=== PATIENT | male | born 1945 | race African-American/Black ===

== ENCOUNTER 2019-08-07 20:18 | Inpatient (IN) | payer MEDICARE ==
[~2019-08-07] VITALS: Ht 177.8 cm; Wt 109.8 kg
[2019-08-07 20:29] VITALS: BP 148/88
--- NOTE | 2019-08-07 20:29 | NUR ---
ED Nurse Note: Pt serena from [facility]. Pt aao x 1, VSS no ss of distress noted. Pt brought in initially for abnormal labs at facility. Pt on ventilator and has tracheostomy, Pt has hx of pulling out tracheostomy, lindsey, and g tube. Pt skin intact. Awaiting ERMD at bedside. Addendum: 08/08/19 at 0230 by JENIFFER ED Nurse Note: Pt serena from [facility]. Pt aao x 1, VSS no ss of distress noted. Pt brought in initially for abnormal labs at facility. Pt on ventilator and has tracheostomy, Pt has hx of pulling out tracheostomy, lindsey, and g tube. Pt has pressure ulcer on sacrum; pictures uploaded. Awaiting ERMD at bedside.
--- NOTE | 2019-08-07 20:32 | NUR ---
ED Nurse Note: EKG performed by BUSINESS IMPROVEMENT MANAGER
--- NOTE | 2019-08-07 20:40 | NUR ---
ED Nurse Note: Blood and urine drawn, sent to lab.
--- NOTE | 2019-08-07 20:55 | NUR ---
ED Nurse Note: xray at bedside
[2019-08-07 21:13] LABS: HEMOGLOBIN 7.6 G/DL (14.2-18.0); MEAN CORPUSCULAR VOLUME 111 FL (80-99); PLATELET COUNT 298 K/UL (150-450); RED BLOOD COUNT 2.26 M/UL (4.70-6.10); RED CELL DISTRIBUTION WIDTH 12.9 % (11.6-14.8); WHITE BLOOD COUNT 11.2 K/UL (4.8-10.8)
--- NOTE | 2019-08-07 21:25 | Emergency Room Report ---
History of Present Illness General Chief Complaint: Abnormal Labs Source: Medical Record, EMS Present Illness HPI This a 74-year-old male from [facility]. He has a history of tracheostomy on the vent. He presents with chief complaint of generalized weakness and low hemoglobin. According to nursing note, patient has hemoglobin of 7. He is decreased appetite and mentation. This been ongoing for 2 to 3 days. No reported fever chills but no nausea no vomiting. No chest pain. History is limited because of patient condition. History is through [facility] note. Allergies: Coded Allergies: No Known Allergies (Unverified , 08/07/19) COVID-19 Screening Contact w/high risk pt: Yes Recent Travel to affected area: No Experienced COVID-19 symptoms?: No COVID-19 Testing performed RESIDENT SERVICES COORDINATOR: Yes COVID-19 Screening: Negative COVID-19 COVID-19 Testing Source: 07/21/19 Patient History Past Medical History: see triage record, old chart reviewed Past Surgical History: other Pertinent Family History: none Social History: Denies: smoking Immunizations: other Reviewed Nursing Documentation: PMH: Agreed; PSxH: Agreed Nursing Documentation-PMH Hx COPD: Yes - respiratory failure Hx Gastrointestinal Problems: Yes - enterocolitits Hx Dialysis: No - ckd Hx Neurological Problems: Yes - dysphagia; speech deficit Hx Cerebrovascular Accident: Yes - intracerebral hemorrhage Review of Systems Constitutional: Reports: malaise, weakness Eye: Denies: eye pain, blurred vision ENT: Denies: ear pain, nose congestion, throat swelling Respiratory: Denies: cough, shortness of breath Cardiovascular: Denies: chest pain, palpitations Gastrointestinal: Denies: abdominal pain, diarrhea, nausea, vomiting Musculoskeletal: Denies: back pain, joint pain Skin: Denies: rash Neurological: Denies: headache, numbness Endocrine: Denies: increased thirst, increased urine Hematologic/Lymphatic: Denies: easy bruising All Other Systems: limited - Secondary to his condition Physical Exam Vital Signs Date Time Temp Pulse Resp B/P (MAP) Pulse Ox O2 Delivery O2 Flow Rate FiO2 08/07/19 20:19 99.5 100 24 148/88 (108) 100 Mechanical Ventilator Vitals with low-grade fever Sp02 EP Interpretation: reviewed, normal General Appearance: no apparent distress, alert, Chronically Ill Head: normocephalic, atraumatic Eyes: bilateral eye PERRL, bilateral eye EOMI ENT: dry mucus membranes Neck: full range of motion, supple, no meningismus, tracheotomy Respiratory: chest non-tender, lungs clear, normal breath sounds Cardiovascular #1: regular rate, rhythm, no murmur Gastrointestinal: normal bowel sounds, non tender, no mass, no organomegaly, no bruit, non-distended Genitourinary: other - Thakkar Musculoskeletal: back normal, non-tender Neurologic: alert Psychiatric: mood/affect normal Medical Decision Making Diagnostic Impression: Primary Impression: Anemia Qualified Codes: D64.9 - Anemia, unspecified Additional Impression: Person under investigation for COVID-19 ER Course Patient presents with anemia. No active bleeding. He does have a low-grade fever with no particular source. He is high risk because he is from a [facility]. COVID testing sent. Will admit for further work-up. I contacted Dr. Hurt for admission. EKG Diagnostic Results Rate: normal Rhythm: NSR ST Segments: other - NSST changes Rhythm Strip Diag. Results EP Interpretation: yes Rate: 100 Rhythm: NSR, no PVC's, no ectopy Chest X-Ray Diagnostic Results Chest X-Ray Diagnostic Results : Chest X-Ray Ordered: Yes # of Views/Limited/Complete: 1 View Indication: Shortness of Breath EP Interpretation: Yes Interpretation: no effusion, no pneumothorax, other - trach, atelectasis Impression: Other - atelectasis Electronically Signed by: Shashank Leal MD Last Vital Signs Date Time Temp Pulse Resp B/P (MAP) Pulse Ox O2 Delivery O2 Flow Rate FiO2 08/07/19 20:29 99.5 100 22 148/88 100 Room Air Status: improved Disposition: SHORT-TERM HOSP Condition: Stable Referrals: Isaiah Hurt MD (PCP) Shashank Leal MD Aug 07, 2019 21:25
[2019-08-07 21:28] LABS: ANION GAP 5 mmol/L (5-15); BLOOD UREA NITROGEN 24 mg/dL (7-18); CALCIUM 8.9 MG/DL (8.5-10.1); CARBON DIOXIDE 35 MMOL/L (21-32); CHLORIDE 94 MMOL/L (98-107); POTASSIUM 4.1 MMOL/L (3.5-5.1); SODIUM 134 MMOL/L (136-145)
[2019-08-07] MEDS ORDERED: Acetaminophen 650 MG SUPP RECTAL ONE (21:30)
--- NOTE | 2019-08-07 21:30 | NUR ---
ED Nurse Note: All swabs sent to lab
[2019-08-07 21:32] LABS: ALANINE AMINOTRANSFERASE 29 U/L (12-78); ALBUMIN/GLOBULIN RATIO 0.4 (1.0-2.7); ALKALINE PHOSPHATASE 121 U/L (46-116); ASPARTATE AMINO TRANSFERASE 24 U/L (15-37); BILIRUBIN,TOTAL 0.4 MG/DL (0.2-1.0); CREATINE KINASE 218 U/L (26-308)
[2019-08-07 21:57] LABS: APPEARANCE,URINE CLEAR; BILIRUBIN, URINE NEGATIVE (NEGATIVE); COLOR,URINE PALE YELLOW; GLUCOSE, URINE (UA) NEGATIVE (NEGATIVE); KETONES,URINE NEGATIVE (NEGATIVE); LEUKOCYTE ESTERASE ,URINE 1+ (NEGATIVE); NITRITE,URINE NEGATIVE (NEGATIVE); PH,URINE 7 (4.5-8.0); PROTEIN,URINE 2+ (NEGATIVE); UROBILINOGEN,URINE NORMAL MG/DL (0.0-1.0)
[2019-08-07 22:51] VITALS: BP 145/81
--- NOTE | 2019-08-07 23:45 | NUR ---
ED Nurse Note: Pt resting in bed, VSS no ss of distress noted. Will continue to monitor.
[2019-08-08] VITALS (8 sets, daily range): BP systolic 115–154; BP diastolic 65–86
--- NOTE | 2019-08-08 01:25 | NUR ---
ED Nurse Note: Pt resting in bed, vss no ss of distress noted.
--- NOTE | 2019-08-08 03:30 | NUR ---
ED Nurse Note: Pt sleeping in bed, VSS no ss of distress noted. Will continue to monitor.
--- NOTE | 2019-08-08 04:00 | NUR ---
ED Nurse Note: Paged Dr. Hurt for bridging orders
--- NOTE | 2019-08-08 05:14 | NUR ---
ED Nurse Note: Pt resting in bed, vss no ss of distress noted. Will continue to monitor.
--- NOTE | 2019-08-08 07:17 | NUR ---
ED Nurse Note: received report from KEHINDE Morales.
--- NOTE | 2019-08-08 07:38 | NUR ---
ED Nurse Note: report given to KEHINDE Rivas. they will place a bed in the room and pt will be transferred.
--- NOTE | 2019-08-08 08:27 | NUR ---
ED Nurse Note: pt transferred to SDU with 2 RN and 1 RT in stable condition. Covid protocol followed to transfer.
--- NOTE | 2019-08-08 08:50 | NUR ---
NURSE NOTES: Received report from KEHINDE Dickinson from ED via [employer]. Iniated desk monitor. Physical assessment done. Stage 2 Sacral noted. Pictures will be taken and upload for wound consult. Patient came in with vent. Thakkar intact. IV on right a/c noted. No belongings. Vitals taken and recorded. Under care of Dr. Hurt. SR on monitor with HR in 80's. Bed in lowest and locked position. Bed alarm on. Will continue to monitor.
--- NOTE | 2019-08-08 09:07 | NUR ---
*-* NO INSURANCE INFORMATION IN THE BAR UNABLE TO SEND CLINICALS OR REVIEWS TO INS CO. *-*
[2019-08-08] MEDS ORDERED: AMLODIPINE BESY10 MG ORAL (10:27)
[2019-08-08] MEDS ORDERED: CATAPRES0.1 MG ORAL (10:27)
[2019-08-08] MEDS ORDERED: SYMMETREL100 MG GT (10:27)
[2019-08-08] MEDS ORDERED: CARVEDILOL6.25 MG ORAL (10:27)
[2019-08-08] MEDS ORDERED: FOLIC ACID1 MG ORAL (10:28)
[2019-08-08] MEDS ORDERED: EPOGEN10000 UNIT SUBQ (10:28)
[2019-08-08] MEDS ORDERED: DOXAZOSIN MESYLA2 MG ORAL (10:28)
[2019-08-08] MEDS ORDERED: POTASSIUM CHLO20 ME2 ORAL (10:28)
[2019-08-08] MEDS ORDERED: FERROUS SU325 MG/5 M GT (10:28)
[2019-08-08] MEDS ORDERED: HYDRALAZINE HCL50 MG ORAL (10:28)
[2019-08-08] MEDS ORDERED: FINASTERIDE1 MG PO (10:28)
[2019-08-08] MEDS ORDERED: LISINOPRIL20 MG ORAL (10:28)
[2019-08-08] MEDS ORDERED: HEPARIN SO5000 UNIT2 SUBQ (10:28)
--- NOTE | 2019-08-08 11:15 | NUR ---
*-* INSURANCE *-* ALL AVAILABLE CLINICALS HAVE BEEN [facility] [id number] ROSA MARIA:RYANNE P: [phone] F: [phone]
--- NOTE | 2019-08-08 12:19 | Diagnostic Imaging Report ---
Indication: Chest pain Technique: One view of the chest Comparison: none Findings: There is a tracheostomy. Calcified granuloma is seen in the right midlung. Granulomatous calcified nodes are seen in the left aortopulmonary window. No definite infiltrates, effusions, congestion. The heart size is upper limits normal. Impression: No definite acute abnormality Evidence of old granulomatous disease
[2019-08-08] MEDS: Ferrous Sulfate 300 MG/5 ML UDC GT SCH ×2 (13:00→17:07)
[2019-08-08] MEDS: HydrALAZINE 50mg tab GT SCH ×2 (14:00→22:00)
--- NOTE | 2019-08-08 15:00 | NUR ---
NURSE NOTES: Patient experienced distress: O2 saturation of 45% and Tachycardia at 150 BPM. RT at bedside. Elevated HOB and restraints removed temporarily. MD made aware and ordered Ativan 1 mg Q3 PRN. Patient O2 saturation increased from 45% to 95% after respiratory therapy initiated. Will continue to monitor patient.
--- NOTE | 2019-08-08 16:18 | NUR ---
NURSE NOTES:WOUND CARE NOTES:Pt presented on admission with multiple Pressure Injuries. Pt has a Tracheostomy and no areas of skin concerns noted under tracheal collar. Unstageable Sacral Pressure Injury(L)9.5cm x (W)10cm. Base of wound is 75% mixed slough and eschar,25% carolynn, Edges adherent with surrounding purple and maroon indurated borders. No odor or exudate noted. DTPI L Heel (L)3.7cm x (W)4.5cm. Base of wound is maroon and indurated with surrounding non-Blanching erythema. Callused skin periwound. Reabsorbing DTPI [place] L Foot (L)3.3cm x (W)2.5cm. Base of Pressure Injury is maroon but dry. No erythema or fluctuance periwound. DTPI Lateral L 1st metatarsal(L)1.5cm x (W)2cm. Base of wound is maroon and indurated.Callused skin periwound. DTPI Lateral R Heel (L)4.4cm x (W)6cm. Base of wound is indurated ,purple with surrounding maroon and fluctuant borders.Callusing periwound. DTPI R Hallux (L)1.8cm x (W)1.9cm. Base of wound is indurated and purple. Callusing periwound. DTPI Lateral R 1st metatarsal(L)2cm x (W)2.7cm. Base of wound is indurated and maroon. Callusing periwound. Tx.Plan: Cleanse Sacral wound with Saline. Apply TheraHoney. Apply Moisture Barrier Paste periwound. Cover with Optifoam drsg. Change every 3 days and prn. Apply Cavilon Skin Barrier to wounds L L Heel , L st metatarsal,Dorsal L Foot. Cover each Site with Optifoam drsg. Change every 7 days and prn. Apply Cavilon Skin Barrier to R Heel, R Hallux, R 1st metatarsal. Cover each site with Optifoam drsg. Change every 7 days and prn. APM/KHOA Mattress. Reposition at least every 2hours or as tolerated. Off-Load Heels with Pillows.
--- NOTE | 2019-08-08 16:44 | NUR ---
INTERQUAL CRITERIA MET
--- NOTE | 2019-08-08 16:58 | Consultation ---
History of Present Illness General Date patient seen: Aug 08, 2019 Reason for Hospitalization: Abnormal Labs Present Illness HPI This a 74-year-old male with multiple medical comorbidities who is a long-term care facility patient. He has a history of tracheostomy and is on vent support. Presents to [facility] for evaluation of generalized weakness and low hemoglobin. According to nursing note, patient has hemoglobin of 7 identified in recent labs. He is symptomatic with upon admission identified to have malnutrition, abnormal labs, decubitus ulcers. Surgery called to evaluate and assist with care. Patient seen, patient evaluated, chart reviewed decreased appetite and mentation. This been ongoing for 2 to 3 days. No reported fever chills but no nausea no vomiting. No chest pain. History is limited because of patient condition. Allergies: Coded Allergies: No Known Allergies (Unverified , 08/07/19) COVID-19 Screening Contact w/high risk pt: Yes Recent Travel to affected area: No Experienced COVID-19 symptoms?: No COVID-19 symptoms experienced: Shortness of Breath Medication History Scheduled Amlodipine Besylate* (Amlodipine Besylate*), 10 MG ORAL DAILY, (Reported) Carvedilol* (Carvedilol*), 6.25 MG ORAL EVERY 12 HOURS, (Reported) Clonidine Hcl* (Catapres*), 0.1 MG ORAL EVERY 8 HOURS, (Reported) Doxazosin Mesylate (Doxazosin Mesylate), 2 MG ORAL DAILY, (Reported) Epoetin Andrés (Epogen), 10,000 UNIT SUBQ 3XW, (Reported) Folic Acid* (Folic Acid*), 1 MG ORAL DAILY, (Reported) Heparin Sod (Porcine) (Heparin Sodium*), 5,000 UNITS SUBQ EVERY 8 HOURS, ( Reported) Hydralazine Hcl* (Hydralazine Hcl*), 50 MG ORAL EVERY 8 HOURS, (Reported) Lisinopril (Lisinopril*), 20 MG ORAL DAILY, (Reported) Potassium Chloride (Potassium Chloride), 20 MEQ ORAL DAILY, (Reported) Miscellaneous Medications Amantadine HCl (Amantadine), 100 MG GT, (Reported) Ferrous Sulfate (Ferrous Sulfate), 325 MG GT, (Reported) Finasteride (Finasteride), 1 MG PO, (Reported) Patient History Limited by: medical condition History Provided By: Medical Record, PMD Healthcare decision maker Resuscitation status Advanced Directive on File Past Medical/Surgical History Past Medical/Surgical History: (1) Anemia (2) Person under investigation for COVID-19 (3) Unstageable decubitus ulcer (4) Leaking PEG tube Review of Systems Review of Symptoms General ROS: no weight loss or fever Psychological ROS: no depression or mood changes, no memory loss Ophthalmic ROS: no visual changes or eye irritation ENT ROS: no nasal congestion, hearing loss, dizziness Allergy and Immunology ROS: no allergic symptoms or urticaria Hematological and Lymphatic ROS: no swollen glands, unusual bleeding or bruising Endocrine ROS: no polyuria, polydipsia, weight changes, temperature intolerance Respiratory ROS: no cough, shortness of breath, or wheezing Cardiovascular ROS: no chest pain or dyspnea on exertion Gastrointestinal ROS: denies abdominal pain, bright red blood in stool. Musculoskeletal ROS: no myalgias or arthralgias Neurological ROS: no TIA or stroke symptoms Dermatological ROS: no new or changing skin lesions, rashes or pruritis Physical Exam Physical Exam General appearance: alert, cooperative, no distress, appears stated age Head: Normocephalic, without obvious abnormality, atraumatic Eyes: conjunctivae/corneas clear. PERRL, EOM's intact. Fundi benign Throat: Lips, mucosa, and tongue normal. Teeth and gums normal Neck: supple, symmetrical, trachea midline, no adenopathy, thyroid: not enlarged, symmetric, no tenderness/mass/nodules, no carotid bruit and no JVD + trach Lungs: clear to auscultation bilaterally Heart: regular rate and rhythm, S1, S2 normal, no murmur, click, rub or gallop Abdomen: soft, non-tender. Bowel sounds normal. No masses, no organomegaly++ peg Extremities: extremities normal, atraumatic, no cyanosis or edema Pulses: 2+ and symmetric Skin: Skin see below Neurologic: Grossly normal Last 24 Hour Vital Signs Date Time Temp Pulse Resp B/P (MAP) Pulse Ox O2 Delivery O2 Flow Rate FiO2 08/08/19 16:00 40 08/08/19 15:42 147 08/08/19 14:40 106 39 40 08/08/19 12:00 40 08/08/19 12:00 Mechanical Ventilator 08/08/19 12:00 98.2 90 20 146/67 (93) 100 08/08/19 11:53 86 22 98 Mechanical Ventilator 40 6/9/20 11:53 90 08/08/19 11:49 92 23 40 08/08/19 10:57 Mechanical Ventilator 08/08/19 08:30 97.5 14 140/86 (104) 100 08/08/19 08:26 98.2 87 18 144/81 100 Mechanical Ventilator 40 08/08/19 07:27 80 24 40 08/08/19 06:45 99.0 83 24 154/83 98 Mechanical Ventilator 40 08/08/19 04:53 99.0 90 27 138/85 100 Mechanical Ventilator 40 08/08/19 02:15 99.0 86 25 139/84 100 Mechanical Ventilator 40 08/08/19 00:58 81 31 40 08/08/19 00:45 99.0 92 22 141/86 100 Mechanical Ventilator 40 08/07/19 22:51 99.0 95 21 145/81 100 Room Air 08/07/19 22:19 99.0 08/07/19 20:30 86 26 40 08/07/19 20:29 99.5 100 22 148/88 100 Room Air 08/07/19 20:19 99.5 100 24 148/88 (108) 100 Mechanical Ventilator Intake and Output 08/07/19 08/08/19 19:00 07:00 Intake Total 0 ml Balance 0 ml Intake Oral 0 ml Laboratory Tests Test 08/07/19 20:40 White Blood Count 11.2 K/UL (4.8-10.8) H Red Blood Count 2.26 M/UL (4.70-6.10) L Hemoglobin 7.6 G/DL (14.2-18.0) L Hematocrit 25.0 % (42.0-52.0) L Mean Corpuscular Volume 111 FL (80-99) H Mean Corpuscular Hemoglobin 33.7 PG (27.0-31.0) H Mean Corpuscular Hemoglobin Concent 30.5 G/DL (32.0-36.0) L Red Cell Distribution Width 12.9 % (11.6-14.8) Platelet Count 298 K/UL (150-450) Mean Platelet Volume 7.6 FL (6.5-10.1) Neutrophils (%) (Auto) % (45.0-75.0) Lymphocytes (%) (Auto) % (20.0-45.0) Monocytes (%) (Auto) % (1.0-10.0) Eosinophils (%) (Auto) % (0.0-3.0) Basophils (%) (Auto) % (0.0-2.0) Differential Total Cells Counted 100 Neutrophils % (Manual) 75 % (45-75) Lymphocytes % (Manual) 10 % (20-45) L Monocytes % (Manual) 15 % (1-10) H Eosinophils % (Manual) 0 % (0-3) Basophils % (Manual) 0 % (0-2) Band Neutrophils 0 % (0-8) Platelet Estimate Adequate Platelet Morphology Normal Polychromasia 1+ Hypochromasia 1+ Anisocytosis 1+ Microcytosis Macrocytosis 2+ Urine Color Pale yellow Urine Appearance Clear Urine pH 7 (4.5-8.0) Urine Specific [place] 1.010 (1.005-1.035) Urine Protein 2+ (NEGATIVE) H Urine Glucose (UA) Negative (NEGATIVE) Urine Ketones Negative (NEGATIVE) Urine Blood 4+ (NEGATIVE) H Urine Nitrite Negative (NEGATIVE) Urine Bilirubin Negative (NEGATIVE) Urine Urobilinogen Normal MG/DL (0.0-1.0) Urine Leukocyte Esterase 1+ (NEGATIVE) H Urine RBC 20-30 /HPF (0 - 0) H Urine WBC 2-4 /HPF (0 - 0) Urine Squamous Epithelial Cells None /LPF (NONE/OCC) Urine Bacteria Occasional /HPF (NONE) Sodium Level 134 MMOL/L (136-145) L Potassium Level 4.1 MMOL/L (3.5-5.1) Chloride Level 94 MMOL/L (98-107) L Carbon Dioxide Level 35 MMOL/L (21-32) H Anion Gap 5 mmol/L (5-15) Blood Urea Nitrogen 24 mg/dL (7-18) H Creatinine 1.0 MG/DL (0.55-1.30) Estimat Glomerular Filtration Rate > 60 mL/min (>60) Glucose Level 115 MG/DL (74-106) H Lactic Acid Level 1.00 mmol/L (0.4-2.0) Calcium Level 8.9 MG/DL (8.5-10.1) Total Bilirubin 0.4 MG/DL (0.2-1.0) Aspartate Amino Transf (AST/SGOT) 24 U/L (15-37) Alanine Aminotransferase (ALT/SGPT) 29 U/L (12-78) Alkaline Phosphatase 121 U/L (46-116) H Total Creatine Kinase 218 U/L (26-308) Troponin I 0.000 ng/mL (0.000-0.056) Total Protein 7.6 G/DL (6.4-8.2) Albumin 2.0 G/DL (3.4-5.0) L Globulin 5.6 g/dL Albumin/Globulin Ratio 0.4 (1.0-2.7) L Height (Feet): 5 Height (Inches): 6.00 Weight (Pounds): 145 Medications Current Medications Medications (Trade) Dose Ordered Sig/Nury Route PRN Reason Start Time Stop Time Status Last Admin Dose Admin Acetaminophen (Tylenol) 650 mg Q4H PRN GT Mild Pain (Pain Scale 1-3) 08/08/19 10:45 09/07/19 10:44 Acetaminophen (Tylenol) 650 mg Q4H PRN GT Temp >100.5 08/08/19 10:45 09/07/19 10:44 Amantadine HCl (Symmetrel) 100 mg DAILY GT 08/09/19 09:00 09/08/19 08:59 Amlodipine Besylate (Norvasc) 10 mg DAILY GT 08/08/19 13:00 09/07/19 12:59 Carvedilol (Coreg) 6.25 mg EVERY 12 HOURS GT 08/08/19 21:00 09/07/19 20:59 Clonidine HCl (Catapres Tab) 0.1 mg EVERY 8 HOURS GT 08/08/19 14:00 11/06/19 13:59 Doxazosin Mesylate (Cardura) 2 mg QHS GT 08/08/19 21:00 09/07/19 20:59 Ferrous Sulfate (Feosol) 330 mg THREE TIMES A DAY GT 08/08/19 13:00 11/06/19 12:59 Finasteride (Proscar) 1 mg QHS ORAL 08/08/19 21:00 11/06/19 20:59 UNV Folic Acid (Folate) 1 mg DAILY GT 08/08/19 14:30 09/07/19 14:29 Heparin Sodium (Porcine) (Heparin 5000 units/ml) 5,000 units EVERY 12 HOURS SUBQ 08/08/19 21:00 09/22/19 20:59 Hydralazine HCl (Apresoline) 50 mg Q8HR GT 08/08/19 14:00 11/06/19 13:59 Lisinopril (PriniviL) 20 mg Q12HR GT 08/08/19 21:00 09/07/19 20:59 Lorazepam (Ativan 2mg/ml 1ml) 1 mg Q3H PRN IV For Anxiety 08/08/19 16:30 08/15/19 16:29 Assessment/Plan Problem List: (1) Anemia ICD Codes: D64.9 - Anemia, unspecified SNOMED: 398312017 Qualifiers: Qualified Codes: D64.9 - Anemia, unspecified (2) Unstageable decubitus ulcer Assessment & Plan: Pt presented on admission with multiple Pressure Injuries. Pt has a Tracheostomy and no areas of skin concerns noted under tracheal collar. Unstageable Sacral Pressure Injury(L)9.5cm x (W)10cm. Base of wound is 75% mixed slough and eschar,25% [place], Edges adherent with surrounding purple and maroon indurated borders. No odor or exudate noted. DTPI L Heel (L)3.7cm x (W)4.5cm. Base of wound is maroon and indurated with surrounding non-Blanching erythema. Callused skin periwound. Reabsorbing DTPI [place] L Foot (L)3.3cm x (W)2.5cm. Base of Pressure Injury is maroon but dry. No erythema or fluctuance periwound. DTPI Lateral L 1st metatarsal(L)1.5cm x (W)2cm. Base of wound is maroon and indurated.Callused skin periwound. DTPI Lateral R Heel (L)4.4cm x (W)6cm. Base of wound is indurated ,purple with surrounding maroon and fluctuant borders.Callusing periwound. DTPI R Hallux (L)1.8cm x (W)1.9cm. Base of wound is indurated and purple. Callusing periwound. DTPI Lateral R 1st metatarsal(L)2cm x (W)2.7cm. Base of wound is indurated and maroon. Callusing periwound. Tx.Plan: Cleanse Sacral wound with Saline. Apply TheraHoney. Apply Moisture Barrier Paste periwound. Cover with Optifoam drsg. Change every 3 days and prn. Apply Cavilon Skin Barrier to wounds L L Heel , L st metatarsal,Dorsal L Foot. Cover each Site with Optifoam drsg. Change every 7 days and prn. Apply Cavilon Skin Barrier to R Heel, R Hallux, R 1st metatarsal. Cover each site with Optifoam drsg. Change every 7 days and prn. APM/KHOA Mattress. Reposition at least every 2hours or as tolerated. Off-Load Heels with Pillows. ICD Codes: L89.95 - Pressure ulcer of unspecified site, unstageable SNOMED: 848757729 (3) Leaking PEG tube ICD Codes: K94.23 - Gastrostomy malfunction SNOMED: 662973535 (4) Person under investigation for COVID-19 Assessment & Plan: There is a tracheostomy. Calcified granuloma is seen in the right midlung. Granulomatous calcified nodes are seen in the left aortopulmonary window. No definite infiltrates, effusions, congestion. The heart size is upper limits normal. Impression: No definite acute abnormality Evidence of old granulomatous disease ICD Codes: Z20.828 - Contact with and (suspected) exposure to other viral communicable diseases SNOMED: 394909966 Homero Cummings Aug 08, 2019 16:58
[2019-08-08] MEDS: LORazepam Inj 2mg/ml 1ml IV PRN (17:02)
--- NOTE | 2019-08-08 17:23 | NUR ---
CASE MANAGEMENT: REVIEW 74 YEAR OLD MALE BIBA FROM [facility] CC: ABNORMAL LABS SI: ANEMIA T 99.5 HR 100 RR 24 BP 148/88 SAT 100% MECH VENT FIO2 40 WBC 11.2 H/H 7.6/25.0 NA 134 IS: NS IVF BOLUS X1 TYLENOL 650MG RECTAL X1 TRANSFUSE PRBC 1 UNIT PATIENT ADMITTED TO STEP DOWN UNIT 08/07/2019 DCP: PATIENT IS FROM [facility]
[2019-08-08] MEDS ORDERED: Amiodarone 900 MG in D5W 500ml 482 ML IV ONE (17:45)
--- NOTE | 2019-08-08 19:10 | NUR ---
NURSE NOTES: Received report from KEHINDE Pineda. Patient asleep in bed, afebrile and has no respiratory distress noted[facility], TV 450, FiO2 40%, peep 5 working well. With GT in place surrounding skin is clean and intact. With R AC 20g SL intact and asymptomatic. With FC to urine bag draining well. PT on Sinus tachy 120-130 notable via 5 lead radiation monitor. Pt is asymptomatic and continue plan of care. HOB elevated. Bed wheels are locked and side rail are up. Call light within reach.
--- NOTE | 2019-08-08 19:30 | NUR ---
HAND-OFF: Report given to vladimir schneider.
--- NOTE | 2019-08-08 20:06 | NUR ---
NURSE NOTES: Placed a call and left a VM to DR Hguo ( director call center sales for tonight for Dr Fisher ) regarding medications of patient because pt is NPO and GT usage is held ( for feeding and meds) for now due to blood aspirated as endorsed by morning shift nurses. Awaiting response.
[2019-08-08] MEDS ORDERED: Carvedilol 6.25mg Tab GT SCH (21:00)
[2019-08-08] MEDS: Heparin 5000 units/ml inj SUBQ SCH (21:00)
--- NOTE | 2019-08-08 21:00 | NUR ---
NURSE NOTES: Heparin not given. Black tarry stool hx and awaiting for OB stool result
--- NOTE | 2019-08-08 21:30 | NUR ---
NURSE NOTES: Relayed to DR Hurt a message regarding medication and tube feeding administration. responded ok to give meds via GT and Start tube feeding while waiting for OB stool result. No GT residual noted.
[2019-08-08] MEDS: Lisinopril 20mg tab GT SCH (21:55)
[2019-08-08] MEDS: Doxazosin 4mg tab GT SCH (21:55)
--- NOTE | 2019-08-08 22:00 | NUR ---
NURSE NOTES: Hydralazine and Clonidine via GT not given due to Pt has facial grimace and noticeable fist clenching ( signs of pain) while giving flushing and meds. BP 118/58. Pt asleep and no significant change noted. MD is aware of the patient's responseof GT administration .
[2019-08-08] MEDS: D5NS 1,000 ML IV SCH (22:40)
[2019-08-09] VITALS: BP 110/58
--- NOTE | 2019-08-09 | NUR ---
NURSE NOTES: 1200: Pre transfusion VS are stable. Pt remains asleep and has no respiratory distress noted. PRBC Blood transfusion started 1215: VS taken and stable. No adverse reaction noted to patient. Continue to monitor the patient
--- NOTE | 2019-08-09 02:30 | NUR ---
NURSE NOTES: 1 unit of PRBC transfusion done. VS are stable. No Adverse reactions noted to patient. Continue to monitor the patient
[2019-08-09 04:00] VITALS: BP 135/66
[2019-08-09] MEDS: HydrALAZINE 50mg tab GT SCH ×3 (05:51→22:00)
--- NOTE | 2019-08-09 06:07 | NUR ---
NURSE NOTES: Hydralazine and Clonidine via GT not given due to Pt has facial grimace and noticeable fist clenching ( signs of pain) while giving flushing and meds. BP 126/58. Pt asleep and no significant change noted. MD is aware of the patient's response of GT administration .
--- NOTE | 2019-08-09 06:10 | NUR ---
NURSE NOTES: Patient was noted with min 99-100 max temperature during blood transfusion. Warm to touch, No sweating, shaking/chills noted to patient. Other VS are stable. No other discomforts noted. Nursing interventions done by removing blanket and sheet, Cooling measure like ice packs, loose clothing and TSB. patient tolerated well. Informed doctor Ishaaya. PILLAI to continue. Rechecked Temperature after transfusion and resulted to 98.8. Continue cooling measures and to monitor patient.
--- NOTE | 2019-08-09 06:45 | Consultation ---
DATE OF CONSULTATION: 08/08/2019 CARDIOLOGY CONSULTATION CONSULTING PHYSICIAN: Augustine Fisher MD. REQUESTING PHYSICIAN: Isaiah Hurt MD. REASON FOR CONSULTATION: Tachycardia. HISTORY OF PRESENT ILLNESS: This is a 74-year-old male was admitted to the hospital today with multiple medical problems. He is a [facility] resident with tracheostomy and is ventilator dependent. He had a low hemoglobin level, has been generally weak with significant malnutrition, no new decubitus. He was noted to have an increase in his heart rate above 150 at some point and I have been asked to assist with care. I reviewed the strips with nursing staff which all revealed sinus tachycardia and no evidence of atrial fibrillation, rare atrial ectopy is seen, nonsustained. MEDICATIONS: Medications prior to admission reviewed and reconciled. ALLERGIES: None known. SOCIAL HISTORY: Not obtainable. FAMILY HISTORY: Not obtainable. PHYSICAL EXAMINATION: VITAL SIGNS: Blood pressure 146/67, pulse 90, respiratory rate 20, afebrile. Heart rate up to 147 earlier. HEENT: Thin trach secretions. LUNGS: Bilateral breath sounds with few rhonchi. CARDIAC: Regular rhythm. Rapid rate. Normal S1 and S2. No murmur. ABDOMEN: Soft. G-tube intact. EXTREMITIES: No edema. LABORATORY AND DIAGNOSTIC DATA: White count 11.2, hemoglobin 7.6. Urinalysis with 20 to 30 red cells, 2 to 4 white cells. Sodium 134, potassium 4.1, bicarb 35, chloride 94, BUN 24, creatinine 1. Lactic acid 1. Albumin 2.0. IMPRESSION: 1. Physiologically associated sinus tachycardia in the setting of anemia and acute infection/sepsis . 2. Severe protein-calorie malnutrition. 3. Respiratory failure. 4. Mild hypovolemia and dehydration with skin decubiti. RECOMMEND: 1. Cardiac monitoring. 2. Hydration. 3. Consider transfusion of packed cells. 4. Nutritional support. 5. Wound care. Augustine Fisher M.D. : Derrick JOB#: [id number] CC:
--- NOTE | 2019-08-09 07:20 | NUR ---
HAND-OFF: Report given to Miriam Dotson RN. PT stable and asleep in bed. Endorsed pt had low grade fever but manageable with cooling measures.
--- NOTE | 2019-08-09 07:30 | NUR ---
NURSE NOTES: received patient report from vladimir rn. patient is on bed asleep. SP blood transfusion 2 u. tolerated well. VS stable. not in acute distress. HR stable. on vent at prescribed rate. on restraints on the right hand. still trying to pull out lines and vent tubes. bed is low and locked for safety. will follow plan of care.
[2019-08-09 08:00] VITALS: BP 117/59
[2019-08-09] MEDS: Ferrous Sulfate 300 MG/5 ML UDC GT SCH ×3 (08:08→18:00)
[2019-08-09] MEDS: Lisinopril 20mg tab GT SCH ×2 (08:09→20:23)
[2019-08-09] MEDS: Ascorbic Acid 500mg tab GT SCH (08:09)
[2019-08-09] MEDS: Amantadine 100mg cap GT SCH (08:09)
[2019-08-09] MEDS: Heparin 5000 units/ml inj SUBQ SCH ×2 (09:00→20:37)
[2019-08-09] MEDS: D5NS 1,000 ML IV SCH ×2 (09:22→18:33)
[2019-08-09 09:37] LABS: BASOPHILS % (AUTO) 0.4 % (0.0-2.0); EOSINOPHILS % (AUTO) 0.2 % (0.0-3.0); HEMATOCRIT 25.8 % (42.0-52.0); LYMPHOCYTES % (AUTO) 5.8 % (20.0-45.0); MEAN CORPUSCULAR VOLUME 97 FL (80-99); MONOCYTES % (AUTO) 9.4 % (1.0-10.0); NEUTROPHILS % (AUTO) 84.2 % (45.0-75.0); PLATELET COUNT 266 K/UL (150-450); RED BLOOD COUNT 2.67 M/UL (4.70-6.10); RED CELL DISTRIBUTION WIDTH 12.8 % (11.6-14.8); WHITE BLOOD COUNT 13.1 K/UL (4.8-10.8)
--- NOTE | 2019-08-09 09:48 | Diagnostic Imaging Report ---
Indication: Abdominal pain Technique: Supine view of the abdomen Comparison: none Findings: A gastrostomy and a Thakkar catheter are noted. Single prominent but not frankly dilated small bowel loop is seen left upper quadrant bowel gas pattern is otherwise unremarkable. Included chest demonstrates evidence of a calcified granuloma in the right lung, and calcified granulomatous lymph nodes in the right pulmonary hilum and left aortopulmonary window. Unusual ossific density is seen in the proximal medial right thigh, incompletely included, possibly area of heterotopic ossification Impression: No acute process. Findings as noted
[2019-08-09 09:50] LABS: ALANINE AMINOTRANSFERASE 19 U/L (12-78); ALBUMIN 1.8 G/DL (3.4-5.0); ALBUMIN/GLOBULIN RATIO 0.3 (1.0-2.7); ALKALINE PHOSPHATASE 102 U/L (46-116); ANION GAP 9 mmol/L (5-15); ASPARTATE AMINO TRANSFERASE 24 U/L (15-37); BILIRUBIN,TOTAL 0.6 MG/DL (0.2-1.0); BLOOD UREA NITROGEN 23 mg/dL (7-18); CALCIUM 8.1 MG/DL (8.5-10.1); CARBON DIOXIDE 30 MMOL/L (21-32); CHLORIDE 98 MMOL/L (98-107); CREATININE 1.2 MG/DL (0.55-1.30); POTASSIUM 3.9 MMOL/L (3.5-5.1); SODIUM 137 MMOL/L (136-145)
[2019-08-09 09:53] LABS: INR 1.3 (0.9-1.1)
--- NOTE | 2019-08-09 10:14 | NUR ---
RADIOLOGY DEPT., ABDOMEN X-RAY DONE.-P.DYE
--- NOTE | 2019-08-09 11:50 | NUR ---
CASE MANAGEMENT: REVIEW SI: ANEMIA . TACHYCARDIA . T 100.0 HR 92 RR 25 BP 117/59 SAT 100% MECH VENT FIO2 40 WBC 13.1 H/H 9.0/25.8 BUN 23 IS: AMIODARONE IV X1 D5 NS IVF @ 100ML/HR HEPARIN SUBQ Q12HR LOPRESSOR GT Q12HR S/P TRANSFUSION PRBC 1 UNIT STEP DOWN UNIT STATUS DCP: PATIENT IS FROM [facility]
--- NOTE | 2019-08-09 11:53 | NUR ---
RD ASSESSMENT & RECOMMENDATIONS SEE CARE ACTIVITY FOR COMPLETE ASSESSMENT DAILY ESTIMATED NEEDS: Needs based on Critical care, wound 79gk 22-28 kcals/kg 9570-1486 total kcals 1.25-2 g protein/kg 99-158 g total protein 25-30 mL/kg 6767-7060 total fluid mLs NUTRITION DIAGNOSIS: Increased pro needs r/t wound healing as evidenced by pt w/ multiple wounds, refer to WC nurse eval, trach and peg dep. CURRENT TF: Osmolite 1.5 @60ml/hr ENTERAL NUTRITION RECOMMENDATIONS: Maintain Osmolite 1.5 @60ml/hr x24 hrs as tolerated to provide 1440ml, 2160 kcal, 90g pro, 1097ml free H2O - Maintain as tolerated - Add PROSOURCE qdaily (11g pro) to better meet est pro needs. - Flush per MD. HOB over 30 degrees ADDITIONAL RECOMMENDATIONS: 1) Per SNF: 5'11" and 174 lbs 2) Tf recs as above 3) Wound care: add JANE BID + Zn SO4 220 mg qd x10 days 4) Maintain calibrated bed scale wts
[2019-08-09 12:00] VITALS: BP 123/71
--- NOTE | 2019-08-09 12:46 | Pulmonology Progress Note ---
Subjective ROS Limited/Unobtainable: Yes Allergies: Coded Allergies: No Known Allergies (Unverified , 08/07/19) Objective Last 24 Hour Vital Signs Date Time Temp Pulse Resp B/P (MAP) Pulse Ox O2 Delivery O2 Flow Rate FiO2 08/09/19 08:00 40 08/09/19 08:00 Mechanical Ventilator 08/09/19 08:00 99.5 92 24 117/59 (78) 100 08/09/19 07:33 97 08/09/19 07:07 88 25 40 08/09/19 06:00 125/83 08/09/19 05:51 125/83 08/09/19 04:00 40 08/09/19 04:00 100.0 92 24 135/66 (89) 100 08/09/19 04:00 Mechanical Ventilator 08/09/19 03:30 87 26 40 08/09/19 00:00 98.6 90 24 110/58 (75) 100 08/09/19 00:00 Mechanical Ventilator 08/09/19 00:00 40 08/08/19 23:29 95 08/08/19 22:50 100 27 40 08/08/19 22:00 118/58 08/08/19 22:00 118/58 08/08/19 21:55 129/69 08/08/19 21:55 118 129/69 08/08/19 20:00 Mechanical Ventilator 08/08/19 20:00 40 08/08/19 20:00 99.6 118 24 129/69 (89) 100 08/08/19 19:31 122 08/08/19 19:30 119 30 40 08/08/19 16:00 97.5 129 24 115/65 (82) 100 08/08/19 16:00 Mechanical Ventilator 08/08/19 16:00 40 08/08/19 15:42 147 08/08/19 14:40 106 39 40 Intake and Output 08/08/19 08/09/19 19:00 07:00 Intake Total 833 ml Output Total 750 ml 300 ml Balance -750 ml 533 ml IV Total 833 ml Output Urine Total 750 ml 300 ml # Bowel Movements 4 2 Objective WDWN trach reduced breath sounds bilaterally without rhonchi or wheeze [id number] without MRG NABS nontender GT no CCE reduced LOC Microbiology Date/Time Source Procedure Growth Status 08/07/19 21:25 Nasopharynx Coronavirus COVID-19 PCR ([facility]ENNIFER) - Final Complete 08/07/19 20:40 Arm Right Blood Culture - Preliminary NO GROWTH AFTER 24 HOURS Resulted 08/07/19 20:40 Arm Right Blood Culture - Preliminary NO GROWTH AFTER 24 HOURS Resulted Laboratory Tests 08/08/19 14:00: Stool Occult Blood Positive 08/09/19 09:15: White Blood Count 13.1H, Red Blood Count 2.67L, Hemoglobin 9.0L, Hematocrit 25.8L, Mean Corpuscular Volume 97, Mean Corpuscular Hemoglobin 33.9H, Mean Corpuscular Hemoglobin Concent 35.1, Red Cell Distribution Width 12.8, Platelet Count 266, Mean Platelet Volume 6.1L, Neutrophils (%) (Auto) 84.2H, Lymphocytes (%) (Auto) 5.8L, Monocytes (%) (Auto) 9.4, Eosinophils (%) (Auto) 0.2, Basophils (%) (Auto) 0.4, Erythrocyte Sedimentation Rate 125H, Prothrombin Time 13.6H, Prothromb Time International Ratio 1.3H, Activated Partial Thromboplast Time 31, Sodium Level 137, Potassium Level 3.9, Chloride Level 98, Carbon Dioxide Level 30, Anion Gap 9, Blood Urea Nitrogen 23H, Creatinine 1.2, Estimat Glomerular Filtration Rate > 60, Glucose Level 135H, Calcium Level 8.1L, Total Bilirubin 0.6, Aspartate Amino Transf (AST/SGOT) 24, Alanine Aminotransferase ( ALT/SGPT) 19, Alkaline Phosphatase 102, C-Reactive Protein, Quantitative 23.5H, Total Protein 7.1, Albumin 1.8L, Globulin 5.3, Albumin/Globulin Ratio 0.3L, Lipase 52L Current Medications Medications (Trade) Dose Ordered Sig/Nury Route PRN Reason Start Time Stop Time Status Last Admin Dose Admin Acetaminophen (Tylenol) 325 mg Q6H PRN RECTAL Temp >100.5 08/08/19 21:45 09/07/19 21:44 Acetaminophen (Tylenol) 650 mg Q4H PRN GT Mild Pain (Pain Scale 1-3) 08/08/19 10:45 09/07/19 10:44 Acetaminophen (Tylenol) 650 mg Q4H PRN GT Temp >100.5 08/08/19 10:45 09/07/19 10:44 Amantadine HCl (Symmetrel) 100 mg DAILY GT 08/09/19 09:00 09/08/19 08:59 Amlodipine Besylate (Norvasc) 10 mg DAILY GT 08/08/19 13:00 09/07/19 12:59 Ascorbic Acid (Vitamin C) 250 mg DAILY GT 08/09/19 09:00 09/08/19 08:59 Clonidine HCl (Catapres Tab) 0.1 mg EVERY 8 HOURS GT 08/08/19 14:00 11/06/19 13:59 Dextrose/Sodium Chloride 1,000 ml @ 100 mls/hr Q10H IV 08/08/19 23:00 09/07/19 22:59 08/09/19 09:22 Doxazosin Mesylate (Cardura) 2 mg QHS GT 08/08/19 21:00 09/07/19 20:59 08/08/19 21:55 Ferrous Sulfate (Feosol) 330 mg THREE TIMES A DAY GT 08/08/19 13:00 11/06/19 12:59 Folic Acid (Folate) 1 mg DAILY GT 08/08/19 14:30 09/07/19 14:29 Heparin Sodium (Porcine) (Heparin 5000 units/ml) 5,000 units EVERY 12 HOURS SUBQ 08/08/19 21:00 09/22/19 20:59 Hydralazine HCl (Apresoline) 10 mg Q6H PRN IV SBP> 160 08/08/19 21:45 11/06/19 21:44 Hydralazine HCl (Apresoline) 50 mg Q8HR GT 08/08/19 14:00 11/06/19 13:59 Lisinopril (PriniviL) 20 mg Q12HR GT 08/08/19 21:00 09/07/19 20:59 08/08/19 21:55 Lorazepam (Ativan 2mg/ml 1ml) 1 mg Q3H PRN IV For Anxiety 08/08/19 16:30 08/15/19 16:29 08/08/19 17:02 Metoprolol Tartrate (Lopressor) 25 mg Q12HR GT 08/09/19 09:00 11/07/19 08:59 Multivitamins (Multivitamins) 1 tab DAILY GT 08/09/19 09:00 09/08/19 08:59 Assessment/Plan Assessment/Plan anemia possible GIB sinus tachycardia respiratory failure trach chronic encephalopathy GT PLAN gi and ID noted fevers noted cards appreciated follow up for changes vent support feeds per gi . impression, plan, and exam edited and reviewed in detail care discussed with Isaiah Villatoro MD Aug 09, 2019 12:46
--- NOTE | 2019-08-09 14:15 | Surgery Progress Note ---
Surgery Progress Note Subjective Additional Comments no acute events labs noted exam stable comfortable micro reviewed Objective Last 24 Hour Vital Signs Date Time Temp Pulse Resp B/P (MAP) Pulse Ox O2 Delivery O2 Flow Rate FiO2 08/09/19 12:00 40 08/09/19 12:00 99.1 92 24 123/71 (88) 100 08/09/19 12:00 Mechanical Ventilator 08/09/19 08:00 40 08/09/19 08:00 Mechanical Ventilator 08/09/19 08:00 99.5 92 24 117/59 (78) 100 08/09/19 07:33 97 08/09/19 07:07 88 25 40 08/09/19 06:00 125/83 08/09/19 05:51 125/83 08/09/19 04:00 40 08/09/19 04:00 100.0 92 24 135/66 (89) 100 08/09/19 04:00 Mechanical Ventilator 08/09/19 03:30 87 26 40 08/09/19 00:00 98.6 90 24 110/58 (75) 100 08/09/19 00:00 Mechanical Ventilator 08/09/19 00:00 40 08/08/19 23:29 95 08/08/19 22:50 100 27 40 08/08/19 22:00 118/58 08/08/19 22:00 118/58 08/08/19 21:55 129/69 08/08/19 21:55 118 129/69 08/08/19 20:00 Mechanical Ventilator 08/08/19 20:00 40 08/08/19 20:00 99.6 118 24 129/69 (89) 100 08/08/19 19:31 122 08/08/19 19:30 119 30 40 08/08/19 16:00 97.5 129 24 115/65 (82) 100 08/08/19 16:00 Mechanical Ventilator 08/08/19 16:00 40 08/08/19 15:42 147 08/08/19 14:40 106 39 40 I&O Intake and Output 08/08/19 08/09/19 19:00 07:00 Intake Total 833 ml Output Total 750 ml 300 ml Balance -750 ml 533 ml IV Total 833 ml Output Urine Total 750 ml 300 ml # Bowel Movements 4 2 Dressing: other Wound: other Drains: other Cardiovascular: RSR Respiratory: decreased breath sounds Abdomen: soft, non-tender, present bowel sounds Extremities: no cyanosis Laboratory Tests Test 08/09/19 09:15 White Blood Count 13.1 K/UL (4.8-10.8) H Red Blood Count 2.67 M/UL (4.70-6.10) L Hemoglobin 9.0 G/DL (14.2-18.0) L Hematocrit 25.8 % (42.0-52.0) L Mean Corpuscular Volume 97 FL (80-99) Mean Corpuscular Hemoglobin 33.9 PG (27.0-31.0) H Mean Corpuscular Hemoglobin Concent 35.1 G/DL (32.0-36.0) Red Cell Distribution Width 12.8 % (11.6-14.8) Platelet Count 266 K/UL (150-450) Mean Platelet Volume 6.1 FL (6.5-10.1) L Neutrophils (%) (Auto) 84.2 % (45.0-75.0) H Lymphocytes (%) (Auto) 5.8 % (20.0-45.0) L Monocytes (%) (Auto) 9.4 % (1.0-10.0) Eosinophils (%) (Auto) 0.2 % (0.0-3.0) Basophils (%) (Auto) 0.4 % (0.0-2.0) Erythrocyte Sedimentation Rate 125 MM/HR (0-20) H Prothrombin Time 13.6 SEC (9.30-11.50) H Prothromb Time International Ratio 1.3 (0.9-1.1) H Activated Partial Thromboplast Time 31 SEC (23-33) Sodium Level 137 MMOL/L (136-145) Potassium Level 3.9 MMOL/L (3.5-5.1) Chloride Level 98 MMOL/L (98-107) Carbon Dioxide Level 30 MMOL/L (21-32) Anion Gap 9 mmol/L (5-15) Blood Urea Nitrogen 23 mg/dL (7-18) H Creatinine 1.2 MG/DL (0.55-1.30) Estimat Glomerular Filtration Rate > 60 mL/min (>60) Glucose Level 135 MG/DL (74-106) H Calcium Level 8.1 MG/DL (8.5-10.1) L Total Bilirubin 0.6 MG/DL (0.2-1.0) Aspartate Amino Transf (AST/SGOT) 24 U/L (15-37) Alanine Aminotransferase (ALT/SGPT) 19 U/L (12-78) Alkaline Phosphatase 102 U/L (46-116) C-Reactive Protein, Quantitative 23.5 mg/dL (0.00-0.90) H Total Protein 7.1 G/DL (6.4-8.2) Albumin 1.8 G/DL (3.4-5.0) L Globulin 5.3 g/dL Albumin/Globulin Ratio 0.3 (1.0-2.7) L Lipase 52 U/L (73-393) L Plan Problems: (1) Anemia (2) Unstageable decubitus ulcer Assessment & Plan: Pt presented on admission with multiple Pressure Injuries. Pt has a Tracheostomy and no areas of skin concerns noted under tracheal collar. Unstageable Sacral Pressure Injury(L)9.5cm x (W)10cm. Base of wound is 75% mixed slough and eschar,25% [place], Edges adherent with surrounding purple and maroon indurated borders. No odor or exudate noted. DTPI L Heel (L)3.7cm x (W)4.5cm. Base of wound is maroon and indurated with surrounding non-Blanching erythema. Callused skin periwound. Reabsorbing DTPI [place] L Foot (L)3.3cm x (W)2.5cm. Base of Pressure Injury is maroon but dry. No erythema or fluctuance periwound. DTPI Lateral L 1st metatarsal(L)1.5cm x (W)2cm. Base of wound is maroon and indurated.Callused skin periwound. DTPI Lateral R Heel (L)4.4cm x (W)6cm. Base of wound is indurated ,purple with surrounding maroon and fluctuant borders.Callusing periwound. DTPI R Hallux (L)1.8cm x (W)1.9cm. Base of wound is indurated and purple. Callusing periwound. DTPI Lateral R 1st metatarsal(L)2cm x (W)2.7cm. Base of wound is indurated and maroon. Callusing periwound. Tx.Plan: Cleanse Sacral wound with Saline. Apply TheraHoney. Apply Moisture Barrier Paste periwound. Cover with Optifoam drsg. Change every 3 days and prn. Apply Cavilon Skin Barrier to wounds L L Heel , L st metatarsal,Dorsal L Foot. Cover each Site with Optifoam drsg. Change every 7 days and prn. Apply Cavilon Skin Barrier to R Heel, R Hallux, R 1st metatarsal. Cover each site with Optifoam drsg. Change every 7 days and prn. APM/KHOA Mattress. Reposition at least every 2hours or as tolerated. Off-Load Heels with Pillows. (3) Leaking PEG tube (4) Person under investigation for COVID-19 Assessment & Plan: There is a tracheostomy. Calcified granuloma is seen in the right midlung. Granulomatous calcified nodes are seen in the left aortopulmonary window. No definite infiltrates, effusions, congestion. The heart size is upper limits normal. Impression: No definite acute abnormality Evidence of old granulomatous disease Homero Cummings Aug 09, 2019 14:15
[2019-08-09 16:00] VITALS: BP 114/68
--- NOTE | 2019-08-09 17:33 | History & Physical ---
History and Physical History & Physicial 74-year-old male was admitted to the hospital today with multiple medical problems. He is a [facility] resident with tracheostomy and is ventilator dependent. He had a low hemoglobin level, has was weak. He was noted to have significant tachycardia above 150. PMH: respiratory failure; trach, GT, anemia, chronic encephalopathy MEDICATIONS: Medications prior to admission reviewed and reconciled. ALLERGIES: None known. SOCIAL HISTORY: Not obtainable. FAMILY HISTORY: Not obtainable. PHYSICAL EXAM: WDWN trach reduced breath sounds bilaterally without rhonchi or wheeze [id number] without NABS nontender GT no CCE poor LOC Labs Test 08/07/19 20:40 08/08/19 14:00 08/09/19 09:15 White Blood Count 11.2 K/UL (4.8-10.8) 13.1 K/UL (4.8-10.8) Red Blood Count 2.26 M/UL (4.70-6.10) 2.67 M/UL (4.70-6.10) Hemoglobin 7.6 G/DL (14.2-18.0) 9.0 G/DL (14.2-18.0) Hematocrit 25.0 % (42.0-52.0) 25.8 % (42.0-52.0) Mean Corpuscular Volume 111 FL (80-99) 97 FL (80-99) Mean Corpuscular Hemoglobin 33.7 PG (27.0-31.0) 33.9 PG (27.0-31.0) Mean Corpuscular Hemoglobin Concent 30.5 G/DL (32.0-36.0) 35.1 G/DL (32.0-36.0) Red Cell Distribution Width 12.9 % (11.6-14.8) 12.8 % (11.6-14.8) Platelet Count 298 K/UL (150-450) 266 K/UL (150-450) Mean Platelet Volume 7.6 FL (6.5-10.1) 6.1 FL (6.5-10.1) Neutrophils (%) (Auto) % (45.0-75.0) 84.2 % (45.0-75.0) Lymphocytes (%) (Auto) % (20.0-45.0) 5.8 % (20.0-45.0) Monocytes (%) (Auto) % (1.0-10.0) 9.4 % (1.0-10.0) Eosinophils (%) (Auto) % (0.0-3.0) 0.2 % (0.0-3.0) Basophils (%) (Auto) % (0.0-2.0) 0.4 % (0.0-2.0) Differential Total Cells Counted 100 Neutrophils % (Manual) 75 % (45-75) Lymphocytes % (Manual) 10 % (20-45) Monocytes % (Manual) 15 % (1-10) Eosinophils % (Manual) 0 % (0-3) Basophils % (Manual) 0 % (0-2) Band Neutrophils 0 % (0-8) Platelet Estimate Adequate Platelet Morphology Normal Polychromasia 1+ Hypochromasia 1+ Anisocytosis 1+ Microcytosis Macrocytosis 2+ Urine Color Pale yellow Urine Appearance Clear Urine pH 7 (4.5-8.0) Urine Specific [place] 1.010 (1.005-1.035) Urine Protein 2+ (NEGATIVE) Urine Glucose (UA) Negative (NEGATIVE) Urine Ketones Negative (NEGATIVE) Urine Blood 4+ (NEGATIVE) Urine Nitrite Negative (NEGATIVE) Urine Bilirubin Negative (NEGATIVE) Urine Urobilinogen Normal MG/DL (0.0-1.0) Urine Leukocyte Esterase 1+ (NEGATIVE) Urine RBC 20-30 /HPF (0 - 0) Urine WBC 2-4 /HPF (0 - 0) Urine Squamous Epithelial Cells None /LPF (NONE/OCC) Urine Bacteria Occasional /HPF (NONE) Sodium Level 134 MMOL/L (136-145) 137 MMOL/L (136-145) Potassium Level 4.1 MMOL/L (3.5-5.1) 3.9 MMOL/L (3.5-5.1) Chloride Level 94 MMOL/L (98-107) 98 MMOL/L (98-107) Carbon Dioxide Level 35 MMOL/L (21-32) 30 MMOL/L (21-32) Anion Gap 5 mmol/L (5-15) 9 mmol/L (5-15) Blood Urea Nitrogen 24 mg/dL (7-18) 23 mg/dL (7-18) Creatinine 1.0 MG/DL (0.55-1.30) 1.2 MG/DL (0.55-1.30) Estimat Glomerular Filtration Rate > 60 mL/min (>60) > 60 mL/min (>60) Glucose Level 115 MG/DL (74-106) 135 MG/DL (74-106) Lactic Acid Level 1.00 mmol/L (0.4-2.0) Calcium Level 8.9 MG/DL (8.5-10.1) 8.1 MG/DL (8.5-10.1) Total Bilirubin 0.4 MG/DL (0.2-1.0) 0.6 MG/DL (0.2-1.0) Aspartate Amino Transf (AST/SGOT) 24 U/L (15-37) 24 U/L (15-37) Alanine Aminotransferase (ALT/SGPT) 29 U/L (12-78) 19 U/L (12-78) Alkaline Phosphatase 121 U/L (46-116) 102 U/L (46-116) Total Creatine Kinase 218 U/L (26-308) Troponin I 0.000 ng/mL (0.000-0.056) Total Protein 7.6 G/DL (6.4-8.2) 7.1 G/DL (6.4-8.2) Albumin 2.0 G/DL (3.4-5.0) 1.8 G/DL (3.4-5.0) Globulin 5.6 g/dL 5.3 g/dL Albumin/Globulin Ratio 0.4 (1.0-2.7) 0.3 (1.0-2.7) Stool Occult Blood Positive (NEGATIVE) Erythrocyte Sedimentation Rate 125 MM/HR (0-20) Prothrombin Time 13.6 SEC (9.30-11.50) Prothromb Time International Ratio 1.3 (0.9-1.1) Activated Partial Thromboplast Time 31 SEC (23-33) C-Reactive Protein, Quantitative 23.5 mg/dL (0.00-0.90) Lipase 52 U/L (73-393) IMPRESSION Assessment/Plan anemia possible GIB sinus tachycardia respiratory failure trach chronic encephalopathy GT PLAN gi and ID noted fevers noted cards appreciated follow up for changes vent support feeds per gi . impression, plan, and exam edited and reviewed in detail care discussed with Isaiah Villatoro MD Aug 09, 2019 17:33
[2019-08-09] MEDS ORDERED: D5NS 1000ml IV ONE (18:40)
[2019-08-09] MEDS ORDERED: NS 275ml ONE (18:40)
--- NOTE | 2019-08-09 18:51 | Diagnostic Imaging Report ---
History: TUBE PLCMT Exam: XR ABDOMEN single image Comparison: IMPRESSION: Image is centered at the diaphragms. Nasogastric tube tip proximal stomach with side port in the area of the GE junction.
--- NOTE | 2019-08-09 19:00 | NUR ---
NURSE NOTES: Received report from KEHINDE Pineda. Patient asleep in bed, afebrile and has no respiratory distress noted. On [facility] vent P8, AC 14, TV 450, FiO2 40%, peep 5 working well. With Left Nares NGT in place verified by xray, clean and intact. With R AC 20g SL intact and asymptomatic. With FC to urine bag draining well. HOB elevated. Bed wheels are locked and side rail are up. Call light within reach.
[2019-08-09 20:00] VITALS: BP 126/67
[2019-08-09] MEDS: Doxazosin 4mg tab GT SCH (20:22)
--- NOTE | 2019-08-09 20:37 | NUR ---
NURSE NOTES: Heparin not given. Black tarry stool hx and OB +
[2019-08-09] MEDS ORDERED: Omnipaque-300 100ml vial INJ PRN (22:00)
--- NOTE | 2019-08-09 22:00 | NUR ---
NURSE NOTES: Hydralazine and catapres not given due to low BP 108/53, HR 68. Pt symptomatic for low bp. Will continue to monitor patient
--- NOTE | 2019-08-09 22:15 | General Progress Note ---
Assessment/Plan Assessment/Plan: Assessment - GT migration out of stomach - Mushroom cap in anterior abdominal wall (GT removed) - Abdominal wall swelling, r/o abscess - Fever, tachy, WBC, CRP - suspect due to GT migration - anemia - OB (+) stools - Dark stools, but on PO Iron - s/p Trach Recommendations - PPI q 12 - NGT for meds and feeds - broad spectrum abx - GT site topical abx - follow exam and labs - transfuse as needed - d/c PO Iron - laxative - Nic need PEG replacement at later time (? Mon) - Will hold off on diagnostic EGD, since will need another EGD for PEG placement - will d/w next of Kin Thank you Rubia Hawk MD Subjective Allergies: Coded Allergies: No Known Allergies (Unverified , 08/07/19) Objective Last 24 Hour Vital Signs Date Time Temp Pulse Resp B/P (MAP) Pulse Ox O2 Delivery O2 Flow Rate FiO2 08/09/19 20:23 126/67 08/09/19 20:22 75 126/67 08/09/19 20:00 Mechanical Ventilator 08/09/19 20:00 99.7 83 24 126/67 (86) 100 08/09/19 20:00 40 08/09/19 19:03 79 08/09/19 18:59 79 21 40 08/09/19 16:00 Mechanical Ventilator 08/09/19 16:00 97.7 78 24 114/68 (83) 100 08/09/19 16:00 40 08/09/19 15:06 89 31 40 08/09/19 12:00 40 08/09/19 12:00 99.1 92 24 123/71 (88) 100 08/09/19 12:00 Mechanical Ventilator 08/09/19 11:36 89 08/09/19 10:40 91 28 40 08/09/19 08:00 40 08/09/19 08:00 Mechanical Ventilator 08/09/19 08:00 99.5 92 24 117/59 (78) 100 08/09/19 07:33 97 08/09/19 07:07 88 25 40 08/09/19 06:00 125/83 08/09/19 05:51 125/83 08/09/19 04:00 40 08/09/19 04:00 100.0 92 24 135/66 (89) 100 6/10/20 04:00 Mechanical Ventilator 08/09/19 03:30 87 26 40 08/09/19 00:00 98.6 90 24 110/58 (75) 100 08/09/19 00:00 Mechanical Ventilator 08/09/19 00:00 40 08/08/19 23:29 95 08/08/19 22:50 100 27 40 Intake and Output 08/08/19 08/09/19 19:00 07:00 Intake Total 833 ml Output Total 750 ml 300 ml Balance -750 ml 533 ml IV Total 833 ml Output Urine Total 750 ml 300 ml # Bowel Movements 4 2 Laboratory Tests 08/09/19 09:15: White Blood Count 13.1H, Red Blood Count 2.67L, Hemoglobin 9.0L, Hematocrit 25.8L, Mean Corpuscular Volume 97, Mean Corpuscular Hemoglobin 33.9H, Mean Corpuscular Hemoglobin Concent 35.1, Red Cell Distribution Width 12.8, Platelet Count 266, Mean Platelet Volume 6.1L, Neutrophils (%) (Auto) 84.2H, Lymphocytes (%) (Auto) 5.8L, Monocytes (%) (Auto) 9.4, Eosinophils (%) (Auto) 0.2, Basophils (%) (Auto) 0.4, Erythrocyte Sedimentation Rate 125H, Prothrombin Time 13.6H, Prothromb Time International Ratio 1.3H, Activated Partial Thromboplast Time 31, Sodium Level 137, Potassium Level 3.9, Chloride Level 98, Carbon Dioxide Level 30, Anion Gap 9, Blood Urea Nitrogen 23H, Creatinine 1.2, Estimat Glomerular Filtration Rate > 60, Glucose Level 135H, Calcium Level 8.1L, Total Bilirubin 0.6, Aspartate Amino Transf (AST/SGOT) 24, Alanine Aminotransferase ( ALT/SGPT) 19, Alkaline Phosphatase 102, C-Reactive Protein, Quantitative 23.5H, Total Protein 7.1, Albumin 1.8L, Globulin 5.3, Albumin/Globulin Ratio 0.3L, Lipase 52L Height (Feet): 5 Height (Inches): 6.00 Weight (Pounds): 216 Rubia Hawk MD Aug 09, 2019 22:15
--- NOTE | 2019-08-09 22:30 | NUR ---
NURSE NOTES: Placed a call to Lucille Davis ( grand daughter) and ask for consent regarding Patient's CT abd w/ contrast. Explained benefits, risk. Lucille understood and consented the procedure and verified by Michael RN. Consent paper in the chart
[2019-08-09] MEDS ORDERED: Sorbitol Solution UD 30ml NG SCH (23:00)
[2019-08-09] MEDS ORDERED: Bacitracin Oint UD TOPIC ONE (23:00)
[2019-08-09] MEDS: Pantoprazole Inj IVP SCH (23:07)
[2019-08-10] VITALS: BP 129/72
[2019-08-10] MEDS: Piperacillin/Tazobactam 3.375 GM in NS 110 ML IVPB SCH ×3 (00:04→15:55)
--- NOTE | 2019-08-10 03:15 | Consultation ---
DATE OF CONSULTATION: 08/09/2019 GASTROENTEROLOGY CONSULTATION CONSULTING PHYSICIAN: Rubia Hawk M.D. REFERRING PHYSICIAN: Isaiah Hurt M.D. CHIEF COMPLAINT: I was asked to see this patient by Dr. Isaiah Hurt for evaluation of anemia and gastrostomy tube dysfunction. HISTORY OF PRESENT ILLNESS: The patient is an unfortunate debilitated 74-year-old man from a detention with chronic tracheostomy, who was found to have severe anemia and tachycardia. The patient himself is unable to provide any history and most of the information is only available from the chart. The patient was brought in to the hospital and gastrostomy tube appeared to be dysfunctional and not working. The patient without grimace and pain at the site of the gastrostomy at the time of any use of the tube. The patient's blood level is low and is being monitored closely. PAST MEDICAL HISTORY: History of respiratory failure, status post tracheostomy placement, status post gastrostomy tube placement, anemia, and chronic encephalopathy. ALLERGIES: No known drug allergies. MEDICATIONS: See the chart list for details. FAMILY HISTORY: Unavailable. SOCIAL HISTORY: The patient is from a detention. Otherwise, no social history is available. REVIEW OF SYSTEMS: Unobtainable. PHYSICAL EXAMINATION: GENERAL: Debilitated man, seen in the room with the nurse at bedside. HEENT: Normocephalic and atraumatic. NECK: Showed a tracheostomy catheter. CHEST: Revealed coarse breath sounds. CARDIOVASCULAR: Revealed regular rate. ABDOMEN: Distended and obese. The gastrostomy tube was examined and the mushroom cap was felt to be within the anterior abdominal wall and the markings are very low at 1 cm and the tube was immobile. There was some discharge from the gastrostomy site. The gastrostomy was therefore removed and an attempt was made to see if it slowly would pass the tract, but the tract was already closed. There was some induration in the surrounding tissue around the gastrostomy site. EXTREMITIES: Revealed contractures. LABORATORY DATA: Noted. ASSESSMENT: This patient presents with 2 main gastrointestinal problems; one is that the gastrostomy tube was apparently within the anterior abdominal wall and therefore had migrated. The tract closed and despite definitively gave induration. This combined with a white count elevation, CRP elevation, and the low-grade temperatures are all suggestive of possible infection and therefore, a CT scan of the abdomen will be done to evaluate the area for any abscess. In the meantime, the patient will be placed on broad-spectrum antibiotics and also proton-pump inhibitor will be given because the patient is anemic. The nurse did report some black stools, but the patient is on iron, which can make the stools black. I will remove the iron and give some laxatives. The patient's blood count will be monitored closely. The patient will require another endoscopy with gastrostomy tube replacement, but I would defer until the inflammatory changes in the area are resolved. The patient is already going to have an endoscopy at that time. I will try to avoid doing another diagnostic endoscopy at this time, if feasible. RECOMMENDATIONS: 1. Begin feeding. 2. Proton-pump inhibitor. 3. Serial CBC. 4. Wound care. 5. Broad-spectrum antibiotics. 6. CT scan of the abdomen. 7. Gastrostomy tube replacement at a later date. Thank you for asking me to participate in the care of this patient. Rubia Hawk M.D. DR: MARLA JOB#: [id number] CC:
[2019-08-10 04:00] VITALS: BP 122/66
[2019-08-10 04:57] LABS: BASOPHILS % (AUTO) 0.5 % (0.0-2.0); EOSINOPHILS % (AUTO) 0.6 % (0.0-3.0); HEMATOCRIT 23.3 % (42.0-52.0); HEMOGLOBIN 8.2 G/DL (14.2-18.0); LYMPHOCYTES % (AUTO) 7.4 % (20.0-45.0); MEAN CORPUSCULAR VOLUME 97 FL (80-99); MONOCYTES % (AUTO) 10.5 % (1.0-10.0); PLATELET COUNT 244 K/UL (150-450); RED CELL DISTRIBUTION WIDTH 12.2 % (11.6-14.8); WHITE BLOOD COUNT 10.9 K/UL (4.8-10.8)
[2019-08-10 05:05] LABS: INR 1.2 (0.9-1.1)
[2019-08-10] MEDS: D5NS 1,000 ML IV SCH ×2 (05:08→14:59)
[2019-08-10 05:44] LABS: ALANINE AMINOTRANSFERASE 22 U/L (12-78); ALBUMIN 1.6 G/DL (3.4-5.0); ALBUMIN/GLOBULIN RATIO 0.3 (1.0-2.7); ALKALINE PHOSPHATASE 99 U/L (46-116); ANION GAP 5 mmol/L (5-15); ASPARTATE AMINO TRANSFERASE 21 U/L (15-37); BILIRUBIN,TOTAL 0.7 MG/DL (0.2-1.0); BLOOD UREA NITROGEN 19 mg/dL (7-18); CARBON DIOXIDE 31 MMOL/L (21-32); CHLORIDE 101 MMOL/L (98-107); CREATININE 1.1 MG/DL (0.55-1.30); SODIUM 137 MMOL/L (136-145)
[2019-08-10 06:12] LABS: % IRON SATURATION 5 % (15-50); IRON 12 ug/dL (50-175); TOTAL IRON BINDING CAPACITY 254 ug/dL (250-450)
--- NOTE | 2019-08-10 07:15 | NUR ---
HAND-OFF: Report given to KEHINDE Majano.
[2019-08-10 08:00] VITALS: BP 122/66
[2019-08-10] MEDS ORDERED: Sorbitol Solution UD 30ml NG SCH (08:00)
[2019-08-10] MEDS: Pantoprazole Inj IVP SCH ×2 (08:29→20:20)
[2019-08-10] MEDS: Amantadine 100mg cap GT SCH (08:31)
[2019-08-10] MEDS: Heparin 5000 units/ml inj SUBQ SCH ×2 (08:31→20:22)
[2019-08-10] MEDS: Ascorbic Acid 500mg tab GT SCH (08:38)
[2019-08-10] MEDS: Lisinopril 20mg tab GT SCH ×2 (08:39→20:20)
--- NOTE | 2019-08-10 08:41 | Pulmonology Progress Note ---
Subjective ROS Limited/Unobtainable: Yes Allergies: Coded Allergies: No Known Allergies (Unverified , 08/07/19) Subjective remains ill fevers anemia low K Objective Last 24 Hour Vital Signs Date Time Temp Pulse Resp B/P (MAP) Pulse Ox O2 Delivery O2 Flow Rate FiO2 08/10/19 08:39 77 133/71 08/10/19 08:39 133/71 08/10/19 08:38 77 133/71 08/10/19 08:27 73 23 40 08/10/19 06:24 132/63 08/10/19 04:00 100.0 96 24 122/66 (84) 100 08/10/19 04:00 Mechanical Ventilator 08/10/19 04:00 40 08/10/19 03:32 75 08/10/19 02:45 84 24 40 08/10/19 00:00 98.1 82 24 129/72 (91) 100 08/10/19 00:00 40 08/10/19 00:00 Mechanical Ventilator 08/09/19 23:29 84 08/09/19 22:38 82 24 40 08/09/19 22:00 108/53 08/09/19 22:00 108/53 08/09/19 20:23 126/67 08/09/19 20:22 75 126/67 08/09/19 20:00 Mechanical Ventilator 08/09/19 20:00 99.7 83 24 126/67 (86) 100 08/09/19 20:00 40 08/09/19 19:03 79 08/09/19 18:59 79 21 40 08/09/19 16:00 Mechanical Ventilator 08/09/19 16:00 97.7 78 24 114/68 (83) 100 08/09/19 16:00 40 08/09/19 15:06 89 31 40 08/09/19 12:00 40 08/09/19 12:00 99.1 92 24 123/71 (88) 100 08/09/19 12:00 Mechanical Ventilator 08/09/19 11:36 89 08/09/19 10:40 91 28 40 Intake and Output 08/09/19 08/10/19 19:00 07:00 Intake Total 1100 ml 1587.0 ml Output Total 950 ml 450 ml Balance 150 ml 1137.0 ml IV Total 1100 ml 1297.0 ml Tube Feeding 290 ml Output Urine Total 950 ml 450 ml # Bowel Movements 3 1 Objective WDWN trach reduced breath sounds bilaterally without rhonchi or wheeze [id number] without MRG NABS nontender GT no CCE reduced LOC Microbiology Date/Time Source Procedure Growth Status 08/07/19 21:25 Nasopharynx Coronavirus COVID-19 PCR ([facility]) - Final Complete 08/07/19 20:40 Arm Right Blood Culture - Preliminary NO GROWTH AFTER 48 HOURS Resulted 08/07/19 20:40 Arm Right Blood Culture - Preliminary NO GROWTH AFTER 48 HOURS Resulted Laboratory Tests 08/09/19 09:15: White Blood Count 13.1H, Red Blood Count 2.67L, Hemoglobin 9.0L, Hematocrit 25.8L, Mean Corpuscular Volume 97, Mean Corpuscular Hemoglobin 33.9H, Mean Corpuscular Hemoglobin Concent 35.1, Red Cell Distribution Width 12.8, Platelet Count 266, Mean Platelet Volume 6.1L, Neutrophils (%) (Auto) 84.2H, Lymphocytes (%) (Auto) 5.8L, Monocytes (%) (Auto) 9.4, Eosinophils (%) (Auto) 0.2, Basophils (%) (Auto) 0.4, Erythrocyte Sedimentation Rate 125H, Prothrombin Time 13.6H, Prothromb Time International Ratio 1.3H, Activated Partial Thromboplast Time 31, Sodium Level 137, Potassium Level 3.9, Chloride Level 98, Carbon Dioxide Level 30, Anion Gap 9, Blood Urea Nitrogen 23H, Creatinine 1.2, Estimat Glomerular Filtration Rate > 60, Glucose Level 135H, Calcium Level 8.1L, Total Bilirubin 0.6, Aspartate Amino Transf (AST/SGOT) 24, Alanine Aminotransferase ( ALT/SGPT) 19, Alkaline Phosphatase 102, C-Reactive Protein, Quantitative 23.5H, Total Protein 7.1, Albumin 1.8L, Globulin 5.3, Albumin/Globulin Ratio 0.3L, Lipase 52L 08/10/19 02:55: White Blood Count 10.9H, Red Blood Count 2.40L, Hemoglobin 8.2L, Hematocrit 23.3L, Mean Corpuscular Volume 97, Mean Corpuscular Hemoglobin 34.3H, Mean Corpuscular Hemoglobin Concent 35.3, Red Cell Distribution Width 12.2, Platelet Count 244, Mean Platelet Volume 6.0L, Neutrophils (%) (Auto) 81.0H, Lymphocytes (%) (Auto) 7.4L, Monocytes (%) (Auto) 10.5H, Eosinophils (%) (Auto) 0.6, Basophils (%) (Auto) 0.5, Prothrombin Time 13.4H, Prothromb Time International Ratio 1.2H, Sodium Level 137, Potassium Level 3.0L, Chloride Level 101, Carbon Dioxide Level 31, Anion Gap 5, Blood Urea Nitrogen 19H, Creatinine 1.1, Estimat Glomerular Filtration Rate > 60, Glucose Level 129H, Calcium Level 8.0L, Total Bilirubin 0.7, Aspartate Amino Transf (AST/SGOT) 21, Alanine Aminotransferase ( ALT/SGPT) 22, Alkaline Phosphatase 99, Total Protein 6.8, Albumin 1.6L, Globulin 5.2, Albumin/Globulin Ratio 0.3L, Iron Level 12L, Total Iron Binding Capacity 254, Percent Iron Saturation 5L, Unsaturated Iron Binding 242 Current Medications Medications (Trade) Dose Ordered Sig/Nury Route PRN Reason Start Time Stop Time Status Last Admin Dose Admin Acetaminophen (Tylenol) 325 mg Q6H PRN RECTAL Temp >100.5 08/08/19 21:45 09/07/19 21:44 Acetaminophen (Tylenol) 650 mg Q4H PRN GT Mild Pain (Pain Scale 1-3) 08/08/19 10:45 09/07/19 10:44 Acetaminophen (Tylenol) 650 mg Q4H PRN GT Temp >100.5 08/08/19 10:45 09/07/19 10:44 Amantadine HCl (Symmetrel) 100 mg DAILY GT 08/09/19 09:00 09/08/19 08:59 08/10/19 08:31 Amlodipine Besylate (Norvasc) 5 mg DAILY GT 08/10/19 09:00 09/09/19 08:59 08/10/19 08:39 Ascorbic Acid (Vitamin C) 250 mg DAILY GT 08/09/19 09:00 09/08/19 08:59 08/10/19 08:38 Barium Sulfate (Readi-Cat 2) 450 ml NOW PRN ORAL Radiology Procedure 08/09/19 22:00 08/11/19 22:00 Clonidine HCl (Catapres Tab) 0.1 mg EVERY 8 HOURS GT 08/08/19 14:00 11/06/19 13:59 08/10/19 06:24 Dextrose/Sodium Chloride 1,000 ml @ 100 mls/hr Q10H IV 08/08/19 23:00 09/07/19 22:59 08/10/19 05:08 Doxazosin Mesylate (Cardura) 2 mg QHS GT 08/08/19 21:00 09/07/19 20:59 08/09/19 20:22 Folic Acid (Folate) 1 mg DAILY GT 08/08/19 14:30 09/07/19 14:29 08/10/19 08:39 Heparin Sodium (Porcine) (Heparin 5000 units/ml) 5,000 units EVERY 12 HOURS SUBQ 08/08/19 21:00 09/22/19 20:59 08/10/19 08:31 Hydralazine HCl (Apresoline) 10 mg Q6H PRN IV SBP> 160 08/08/19 21:45 11/06/19 21:44 Iohexol (OMNIPAQUE-300 100ml) 100 ml NOW PRN INJ Radiology Procedure 08/09/19 22:00 08/11/19 22:00 Lisinopril (PriniviL) 20 mg Q12HR GT 08/08/19 21:00 09/07/19 20:59 08/10/19 08:39 Lorazepam (Ativan 2mg/ml 1ml) 1 mg Q3H PRN IV For Anxiety 08/08/19 16:30 08/15/19 16:29 08/08/19 17:02 Metoprolol Tartrate (Lopressor) 25 mg Q12HR GT 08/09/19 09:00 11/07/19 08:59 08/10/19 08:38 Multivitamins (Multivitamins) 1 tab DAILY GT 08/09/19 09:00 09/08/19 08:59 08/10/19 08:39 Pantoprazole (Protonix) 40 mg EVERY 12 HOURS IVP 08/09/19 23:00 09/08/19 22:59 08/10/19 08:29 Piperacillin Sod/ Tazobactam Sod 3.375 gm/Sodium Chloride 110 ml @ 27.5 mls/hr Q8H IVPB 08/10/19 00:00 08/17/19 00:00 08/10/19 08:29 Sorbitol (sorbitoL) 45 ml ONCE NG 08/10/19 08:00 09/09/19 07:59 Assessment/Plan Assessment/Plan anemia possible GIB sinus tachycardia respiratory failure trach chronic encephalopathy GT low K fevers PLAN gi and ID noted fevers noted and await improved cards appreciated follow up for changes vent support feeds per gi . monitor HH impression, plan, and exam edited and reviewed in detail care discussed with Isaiah Villatoro MD Aug 10, 2019 08:41
--- NOTE | 2019-08-10 10:15 | Progress Note ---
DATE: 08/09/2019 CARDIOLOGY PROGRESS NOTE SUBJECTIVE: The patient has had sinus tachycardia yesterday. This was associated with presumed G-tube migration and new infection as well as bleeding. The patient's heart rate has stabilized. The patient has a history of hypertension. The patient has a tracheostomy and chronic respiratory failure. The patient is to undergo G-tube revision and endoscopy in several days. PHYSICAL EXAMINATION: VITAL SIGNS: Blood pressure 125/83, pulse 92, respirations 24, and temperature 100. LUNGS: Few rhonchi. Trach site clean. CARDIAC: Regular with no murmur. ABDOMEN: Soft. No distention. G-tube migration. IMPRESSION: 1. Respiratory failure. 2. GI bleed. 3. Anemia. 4. Fevers, source unclear. 5. Paroxysmal sinus tachycardia. 6. History of hypertension. PLAN: 1. Review echocardiogram. 2. Decrease antihypertensive therapy. 3. Continue hydration while NPO. Augustine Fisher M.D. DR: BLAKE JOB#: [id number] CC:
--- NOTE | 2019-08-10 10:34 | NUR ---
*-* INSURANCE *-* UPDATED CLINICALS HAVE BEEN FAXED TO: [email or web address] REF# [id number] NCM:RYANNE P: [phone] F: [phone] Addendum: 08/10/19 at 1128 by MICHAEL FORBES CM sent to [facility] NO NUMBER PROVIDED IN BAR
--- NOTE | 2019-08-10 10:35 | NUR ---
MILITARY TECHNICIAN NOTE CALL MADE TO [email or web address] [facility] @ [phone]. S/W NICHOLAS. VERBAL REPORT ON PATIENTS STATUS PROVIDED. INFORMED NICHOLAS THAT UPDATED CLINICALS HAVE BEEN FAXED TODAY TO [phone]. NICHOLAS CONFIRMED THAT IS THE CORRECT FAX NUMBER. WILL FOLLOW UP TO CONFIRM RECEIPT OF CLINICALS.
--- NOTE | 2019-08-10 10:35 | General Progress Note ---
Assessment/Plan Assessment/Plan: Assessment - GT migration out of stomach - Mushroom cap in anterior abdominal wall (GT removed) - Abdominal wall swelling, r/o abscess - Fever, tachy, WBC, CRP - suspect due to GT migration - anemia - OB (+) stools - Dark stools, but on PO Iron - s/p Trach Recommendations - PPI q 12 - NGT for meds and feeds - broad spectrum abx - GT site topical abx - follow exam and labs - transfuse as needed - d/c PO Iron ----> IV Fe - laxative - Nic need PEG replacement at later time (? Mon) - Will hold off on diagnostic EGD, since will need another EGD for PEG placement - will d/w next of Kin Thank you Rubia Hawk MD Subjective Allergies: Coded Allergies: No Known Allergies (Unverified , 08/07/19) Subjective above noted no events overnight getting U/S CT not yet done Objective Last 24 Hour Vital Signs Date Time Temp Pulse Resp B/P (MAP) Pulse Ox O2 Delivery O2 Flow Rate FiO2 08/10/19 08:39 77 133/71 08/10/19 08:39 133/71 08/10/19 08:38 77 133/71 08/10/19 08:27 73 23 40 08/10/19 06:24 132/63 08/10/19 04:00 100.0 96 24 122/66 (84) 100 08/10/19 04:00 Mechanical Ventilator 08/10/19 04:00 40 08/10/19 03:32 75 08/10/19 02:45 84 24 40 08/10/19 00:00 98.1 82 24 129/72 (91) 100 08/10/19 00:00 40 08/10/19 00:00 Mechanical Ventilator 08/09/19 23:29 84 08/09/19 22:38 82 24 40 08/09/19 22:00 108/53 08/09/19 22:00 108/53 08/09/19 20:23 126/67 08/09/19 20:22 75 126/67 08/09/19 20:00 Mechanical Ventilator 08/09/19 20:00 99.7 83 24 126/67 (86) 100 08/09/19 20:00 40 08/09/19 19:03 79 08/09/19 18:59 79 21 40 08/09/19 16:00 Mechanical Ventilator 08/09/19 16:00 97.7 78 24 114/68 (83) 100 08/09/19 16:00 40 08/09/19 15:06 89 31 40 08/09/19 12:00 40 08/09/19 12:00 99.1 92 24 123/71 (88) 100 08/09/19 12:00 Mechanical Ventilator 08/09/19 11:36 89 08/09/19 10:40 91 28 40 Intake and Output 08/09/19 08/10/19 19:00 07:00 Intake Total 1100 ml 1587.0 ml Output Total 950 ml 450 ml Balance 150 ml 1137.0 ml IV Total 1100 ml 1297.0 ml Tube Feeding 290 ml Output Urine Total 950 ml 450 ml # Bowel Movements 3 1 Laboratory Tests 08/10/19 02:55: White Blood Count 10.9H, Red Blood Count 2.40L, Hemoglobin 8.2L, Hematocrit 23.3L, Mean Corpuscular Volume 97, Mean Corpuscular Hemoglobin 34.3H, Mean Corpuscular Hemoglobin Concent 35.3, Red Cell Distribution Width 12.2, Platelet Count 244, Mean Platelet Volume 6.0L, Neutrophils (%) (Auto) 81.0H, Lymphocytes (%) (Auto) 7.4L, Monocytes (%) (Auto) 10.5H, Eosinophils (%) (Auto) 0.6, Basophils (%) (Auto) 0.5, Prothrombin Time 13.4H, Prothromb Time International Ratio 1.2H, Sodium Level 137, Potassium Level 3.0L, Chloride Level 101, Carbon Dioxide Level 31, Anion Gap 5, Blood Urea Nitrogen 19H, Creatinine 1.1, Estimat Glomerular Filtration Rate > 60, Glucose Level 129H, Calcium Level 8.0L, Iron Level 12L, Total Iron Binding Capacity 254, Percent Iron Saturation 5L, Unsaturated Iron Binding 242, Total Bilirubin 0.7, Aspartate Amino Transf (AST/ SGOT) 21, Alanine Aminotransferase (ALT/SGPT) 22, Alkaline Phosphatase 99, Total Protein 6.8, Albumin 1.6L, Globulin 5.2, Albumin/Globulin Ratio 0.3L Height (Feet): 5 Height (Inches): 6.00 Weight (Pounds): 216 Objective Obese AA Man NCAT (+) Trach coarse BS RR Abd obese, some distention, GT site closed, still with induration around site trace edema non interactive Rubia Hawk MD Aug 10, 2019 10:35
--- NOTE | 2019-08-10 11:44 | Surgery Progress Note ---
Surgery Progress Note Subjective Additional Comments ng tube in place pending egd peg ?wednesday prior g tube site okay. no abscess at this time noted labs noted Objective Last 24 Hour Vital Signs Date Time Temp Pulse Resp B/P (MAP) Pulse Ox O2 Delivery O2 Flow Rate FiO2 08/10/19 11:00 52 23 40 08/10/19 08:39 77 133/71 08/10/19 08:39 133/71 08/10/19 08:38 77 133/71 08/10/19 08:27 73 23 40 08/10/19 06:24 132/63 08/10/19 04:00 100.0 96 24 122/66 (84) 100 08/10/19 04:00 Mechanical Ventilator 08/10/19 04:00 40 08/10/19 03:32 75 08/10/19 02:45 84 24 40 08/10/19 00:00 98.1 82 24 129/72 (91) 100 08/10/19 00:00 40 08/10/19 00:00 Mechanical Ventilator 08/09/19 23:29 84 08/09/19 22:38 82 24 40 08/09/19 22:00 108/53 08/09/19 22:00 108/53 08/09/19 20:23 126/67 08/09/19 20:22 75 126/67 08/09/19 20:00 Mechanical Ventilator 08/09/19 20:00 99.7 83 24 126/67 (86) 100 08/09/19 20:00 40 08/09/19 19:03 79 08/09/19 18:59 79 21 40 08/09/19 16:00 Mechanical Ventilator 08/09/19 16:00 97.7 78 24 114/68 (83) 100 08/09/19 16:00 40 08/09/19 15:06 89 31 40 08/09/19 12:00 40 08/09/19 12:00 99.1 92 24 123/71 (88) 100 08/09/19 12:00 Mechanical Ventilator I&O Intake and Output 08/09/19 08/10/19 19:00 07:00 Intake Total 1100 ml 1587.0 ml Output Total 950 ml 450 ml Balance 150 ml 1137.0 ml IV Total 1100 ml 1297.0 ml Tube Feeding 290 ml Output Urine Total 950 ml 450 ml # Bowel Movements 3 1 Laboratory Tests Test 08/10/19 02:55 White Blood Count 10.9 K/UL (4.8-10.8) H Red Blood Count 2.40 M/UL (4.70-6.10) L Hemoglobin 8.2 G/DL (14.2-18.0) L Hematocrit 23.3 % (42.0-52.0) L Mean Corpuscular Volume 97 FL (80-99) Mean Corpuscular Hemoglobin 34.3 PG (27.0-31.0) H Mean Corpuscular Hemoglobin Concent 35.3 G/DL (32.0-36.0) Red Cell Distribution Width 12.2 % (11.6-14.8) Platelet Count 244 K/UL (150-450) Mean Platelet Volume 6.0 FL (6.5-10.1) L Neutrophils (%) (Auto) 81.0 % (45.0-75.0) H Lymphocytes (%) (Auto) 7.4 % (20.0-45.0) L Monocytes (%) (Auto) 10.5 % (1.0-10.0) H Eosinophils (%) (Auto) 0.6 % (0.0-3.0) Basophils (%) (Auto) 0.5 % (0.0-2.0) Prothrombin Time 13.4 SEC (9.30-11.50) H Prothromb Time International Ratio 1.2 (0.9-1.1) H Sodium Level 137 MMOL/L (136-145) Potassium Level 3.0 MMOL/L (3.5-5.1) L Chloride Level 101 MMOL/L (98-107) Carbon Dioxide Level 31 MMOL/L (21-32) Anion Gap 5 mmol/L (5-15) Blood Urea Nitrogen 19 mg/dL (7-18) H Creatinine 1.1 MG/DL (0.55-1.30) Estimat Glomerular Filtration Rate > 60 mL/min (>60) Glucose Level 129 MG/DL (74-106) H Calcium Level 8.0 MG/DL (8.5-10.1) L Iron Level 12 ug/dL (50-175) L Total Iron Binding Capacity 254 ug/dL (250-450) Percent Iron Saturation 5 % (15-50) L Unsaturated Iron Binding 242 ug/dL (112-346) Total Bilirubin 0.7 MG/DL (0.2-1.0) Aspartate Amino Transf (AST/SGOT) 21 U/L (15-37) Alanine Aminotransferase (ALT/SGPT) 22 U/L (12-78) Alkaline Phosphatase 99 U/L (46-116) Total Protein 6.8 G/DL (6.4-8.2) Albumin 1.6 G/DL (3.4-5.0) L Globulin 5.2 g/dL Albumin/Globulin Ratio 0.3 (1.0-2.7) L Plan Problems: (1) Anemia (2) Unstageable decubitus ulcer Assessment & Plan: Pt presented on admission with multiple Pressure Injuries. Pt has a Tracheostomy and no areas of skin concerns noted under tracheal collar. Unstageable Sacral Pressure Injury(L)9.5cm x (W)10cm. Base of wound is 75% mixed slough and eschar,25% carolynn, Edges adherent with surrounding purple and maroon indurated borders. No odor or exudate noted. DTPI L Heel (L)3.7cm x (W)4.5cm. Base of wound is maroon and indurated with surrounding non-Blanching erythema. Callused skin periwound. Reabsorbing DTPI [place] L Foot (L)3.3cm x (W)2.5cm. Base of Pressure Injury is maroon but dry. No erythema or fluctuance periwound. DTPI Lateral L 1st metatarsal(L)1.5cm x (W)2cm. Base of wound is maroon and indurated.Callused skin periwound. DTPI Lateral R Heel (L)4.4cm x (W)6cm. Base of wound is indurated ,purple with surrounding maroon and fluctuant borders.Callusing periwound. DTPI R Hallux (L)1.8cm x (W)1.9cm. Base of wound is indurated and purple. Callusing periwound. DTPI Lateral R 1st metatarsal(L)2cm x (W)2.7cm. Base of wound is indurated and maroon. Callusing periwound. Tx.Plan: Cleanse Sacral wound with Saline. Apply TheraHoney. Apply Moisture Barrier Paste periwound. Cover with Optifoam drsg. Change every 3 days and prn. Apply Cavilon Skin Barrier to wounds L L Heel , L st metatarsal,Dorsal L Foot. Cover each Site with Optifoam drsg. Change every 7 days and prn. Apply Cavilon Skin Barrier to R Heel, R Hallux, R 1st metatarsal. Cover each site with Optifoam drsg. Change every 7 days and prn. APM/KHOA Mattress. Reposition at least every 2hours or as tolerated. Off-Load Heels with Pillows. (3) Leaking PEG tube Assessment & Plan: prior peg removed plan new placement soon will monitor site (4) Person under investigation for COVID-19 Assessment & Plan: There is a tracheostomy. Calcified granuloma is seen in the right midlung. Granulomatous calcified nodes are seen in the left aortopulmonary window. No definite infiltrates, effusions, congestion. The heart size is upper limits normal. Impression: No definite acute abnormality Evidence of old granulomatous disease Homero Cummings Aug 10, 2019 11:44
[2019-08-10 12:00] VITALS: BP 135/76
--- NOTE | 2019-08-10 13:02 | Diagnostic Imaging Report ---
Indication: Bilateral lower extremity edema Technique: Grayscale and duplex images of the bilateral lower extremity veins Comparison: Findings: Bilaterally, grayscale and duplex images demonstrate no evidence of intraluminal thrombus. Normal phasic Doppler waveforms, demonstrating normal augmentation response and no evidence of valvular insufficiency. Greater saphenous vein(s) and tibial veins are patent. Normal compressibility. Impression: Negative for evidence of lower extremity deep venous thrombosis bilaterally
--- NOTE | 2019-08-10 13:21 | NUR ---
CASE MANAGEMENT:REVIEW SI;RESPIRATORY FAILURE. TACHYCARDIA . ANEMIA. 100.0 52 24 135/76 100% TRACH/VENT FIO2 @ 40% WBC 10.9 H/H 8.2/23.3 K+ 3.0 IRON 12 ALB 1.6 IS;IRON SUCROSE IV HS ZOSYN IV Q8 HR PROTONIX IV Q12 HR LOPRESSOR GT Q12 HR IVF D5W @ 100 ML/HR HEPARIN SUBQ Q12 HR LISINOPRIL GT Q12 HR CARDURA GT QD JACKY STATUS DCP;PATIENT IS FROM [facility]
--- NOTE | 2019-08-10 14:20 | NUR ---
NURSE NOTES: Dr. Fisher at bedside, aware of patient's run of A-flutter. No further orders.
[2019-08-10 16:00] VITALS: BP 102/55
--- NOTE | 2019-08-10 18:26 | NUR ---
NURSE NOTES: Patient resting in bed, no s/s of acute distress. VSS. Patient opens eyes to voice. No s/s of pain. Tolerating feeding well, no residual noted.
--- NOTE | 2019-08-10 19:10 | NUR ---
NURSE NOTES: Received patient and report from KEHINDE Marquez. Patient is observed resting in bed and remains alert and oriented x0-1. No pain noted upon assessment. Pt is currently trach to vent with the following settings: AC 14 TV 450 FiO2 40 PEEP 5 with an O2 saturation of 100% noted. Pt appears to be tolerating settings well. Bilateral lower lobe breath sounds noted to be diminished upon auscultation noted in bilateral lower lobes. Pt noted to be SR on tele monitor with a current HR of 67. Thakkar catheter noted which remains intact, patent and draining urine to gravity. R AC 20g IV catheter noted which remains asymptomatic, intact and patent with fluids running as prescribed. NGT remains intact and patent with 10mL residual noted, marking noted to be at 75cm and anchored in place. NGT Feeding running as prescribed.Diagnostics reviewed at bedside. Skin alterations noted. Pt repositioned for comfort and safety. Fall, Aspiration and Skin precautions observed. R hand soft wrist restraint remains in place for patient safety. CMS remains intact. Pt remains resting in bed; Bed remains in the lowest position with the safety wheels engaged, call light within reach, side rails up x3 and bed alarm activated. Will continue plan of care. Will continue to monitor.
--- NOTE | 2019-08-10 19:20 | NUR ---
HAND-OFF: Report given to Gurpreet BUSBY. Patient VSS, plan of care endorsed.
[2019-08-10 20:00] VITALS: BP 138/78
[2019-08-10] MEDS: Iron Sucrose 100 MG in NS 55 ML IV SCH (20:22)
[2019-08-10] MEDS: Doxazosin 4mg tab GT SCH (21:37)
--- NOTE | 2019-08-10 22:30 | NUR ---
NURSE NOTES: Assessed patient for removal of restraints. Pt immediately attempts to dislodge NG tube and pull at other medical devices including IV tubing and cardiac cath lab radiology technologist despite providing patient education. CMS remains intact and ROM exercises performed per patient tolerance. Will continue to monitor.
[2019-08-11] VITALS: BP 138/80
--- NOTE | 2019-08-11 | NUR ---
NURSE NOTES: Pt provided with a bed bath, oral care and linen change. Wound care performed per orders and ROM exercises performed per pt tolerance. Pt tolerated care well. Fall, Aspiration and Skin precautions observed. Pt remains resting in bed; Bed remains in the lowest position with the safety wheels engaged, call light within reach, side rails up x3 and bed alarm activated. Will continue plan of care. Will continue to monitor.
[2019-08-11] MEDS: Piperacillin/Tazobactam 3.375 GM in NS 110 ML IVPB SCH ×3 (00:33→15:58)
[2019-08-11] MEDS: D5NS 1,000 ML IV SCH ×3 (00:34→20:13)
[2019-08-11] MEDS: LORazepam Inj 2mg/ml 1ml IV PRN ×2 (00:48→14:21)
--- NOTE | 2019-08-11 00:48 | NUR ---
NURSE NOTES: Pt noted to be agitated with an elevated respiratory and HR. Assessed pt for anxiety; pt nods when asked if he is anxious. VS obtained and remains WNL except for increased RR r/t anxiety. Body language is congruent with anxiety. Ativan administered as ordered, no adverse effects noted. Will continue to monitor.
[2019-08-11 04:00] VITALS: BP 133/86
--- NOTE | 2019-08-11 04:00 | NUR ---
NURSE NOTES: Bedside assessment performed, assessed pt for pain using FLACC scale with a score of 0 noted. Pt provided with a partial bed bath, oral care and suctioning for excess secretions. Pt tolerated care well. VS noted to be stable at this time. Fall, Aspiration, Seizure and Skin precautions observed. Pt remains resting in bed; Bed remains in the lowest position with the safety wheels engaged, call light within reach, side rails up x3 and bed alarm activated. Will continue plan of care. Will continue to monitor.
[2019-08-11 05:53] LABS: BASOPHILS % (AUTO) 0.6 % (0.0-2.0); EOSINOPHILS % (AUTO) 1.4 % (0.0-3.0); HEMATOCRIT 26.4 % (42.0-52.0); HEMOGLOBIN 8.5 G/DL (14.2-18.0); LYMPHOCYTES % (AUTO) 9.4 % (20.0-45.0); MEAN CORPUSCULAR VOLUME 105 FL (80-99); MONOCYTES % (AUTO) 11.4 % (1.0-10.0); NEUTROPHILS % (AUTO) 77.2 % (45.0-75.0); PLATELET COUNT 212 K/UL (150-450); RED CELL DISTRIBUTION WIDTH 12.5 % (11.6-14.8); WHITE BLOOD COUNT 10.4 K/UL (4.8-10.8)
--- NOTE | 2019-08-11 06:48 | NUR ---
NURSE NOTES: Left message regarding pt is COVID negative; obtain order to D/C isolation or to repeat COVID swab as well as order for CMP to recheck potassium level, noted to be 3.0 yesterday with 40meq k replaced. Will await a call back. Will continue to monitor.
--- NOTE | 2019-08-11 07:00 | NUR ---
HAND-OFF: Report given to KEHINDE Cantu. Pt remains stable at this time.
--- NOTE | 2019-08-11 07:30 | Progress Note ---
DATE: 08/11/2019 CARDIOLOGY PROGRESS NOTE Blood pressure parameters stable. Sinus rhythm maintained. Rare atrial ectopics. Short runs of atrial arrhythmia. No sustained supraventricular tachycardias. Vitals are stable. Exam unchanged. The patient is stable for G-tube revision. Echocardiogram reveals no left ventricular systolic dysfunction and mild mitral regurgitation with [id number] pulmonary hypertension, which is not unexpected based on respiratory failure. We will consider diltiazem for sustained atrial arrhythmias, which may be precipitated by elevated right-sided atrial pressure. Augustine Fisher M.D. DR: LATONYA JOB#: [id number] CC:
[2019-08-11 07:41] LABS: ANION GAP 9 mmol/L (5-15); BLOOD UREA NITROGEN 16 mg/dL (7-18); CALCIUM 8.1 MG/DL (8.5-10.1); CARBON DIOXIDE 30 MMOL/L (21-32); CHLORIDE 103 MMOL/L (98-107); CREATININE 1.1 MG/DL (0.55-1.30); POTASSIUM 3.3 MMOL/L (3.5-5.1); SODIUM 141 MMOL/L (136-145)
[2019-08-11 08:00] VITALS: BP 124/82
[2019-08-11] MEDS: Heparin 5000 units/ml inj SUBQ SCH ×2 (08:31→20:15)
--- NOTE | 2019-08-11 08:49 | Pulmonology Progress Note ---
Subjective ROS Limited/Unobtainable: Yes Allergies: Coded Allergies: No Known Allergies (Unverified , 08/07/19) Subjective remains ill fevers better pus from gt site low K Objective Last 24 Hour Vital Signs Date Time Temp Pulse Resp B/P (MAP) Pulse Ox O2 Delivery O2 Flow Rate FiO2 08/11/19 05:34 128/73 08/11/19 04:00 40 08/11/19 04:00 98.2 63 20 133/86 (102) 100 08/11/19 04:00 Mechanical Ventilator Mechanical Ventilator 08/11/19 03:50 78 08/11/19 03:25 73 19 40 08/11/19 00:00 69 08/11/19 00:00 98.3 63 20 138/80 (99) 100 08/11/19 00:00 Mechanical Ventilator Mechanical Ventilator 08/10/19 23:04 57 23 40 08/10/19 21:37 118/64 08/10/19 20:20 87 131/79 08/10/19 20:20 131/79 08/10/19 20:00 98.4 67 21 138/78 (98) 100 08/10/19 20:00 40 08/10/19 20:00 Mechanical Ventilator Mechanical Ventilator 08/10/19 19:45 71 23 40 08/10/19 19:26 70 08/10/19 16:00 67 08/10/19 16:00 40 08/10/19 16:00 Mechanical Ventilator 08/10/19 16:00 99.1 68 21 102/55 (71) 100 08/10/19 15:00 68 26 40 08/10/19 14:59 139/72 08/10/19 12:00 40 08/10/19 12:00 Mechanical Ventilator 08/10/19 12:00 99.3 72 21 135/76 (95) 100 08/10/19 12:00 73 08/10/19 11:00 52 23 40 Intake and Output 08/10/19 08/11/19 19:00 07:00 Intake Total 330 ml 934.163 ml Output Total 500 ml 550 ml Balance -170 ml 384.163 ml Free Water 90 ml IV Total 724.163 ml Tube Feeding 330 ml 120 ml Output Urine Total 500 ml 550 ml # Bowel Movements 1 Objective WDWN trach reduced breath sounds bilaterally without rhonchi or wheeze [id number] without MRG NABS nontender GT- noted drainage no CCE reduced LOC Microbiology Date/Time Source Procedure Growth Status 08/09/19 22:00 Nasopharynx Coronavirus COVID-19 PCR ([facility]) - Final Complete Laboratory Tests 08/11/19 02:50: White Blood Count 10.4, Red Blood Count 2.50L, Hemoglobin 8.5L, Hematocrit 26.4L , Mean Corpuscular Volume 105#H, Mean Corpuscular Hemoglobin 33.8H, Mean Corpuscular Hemoglobin Concent 32.1, Red Cell Distribution Width 12.5, Platelet Count 212, Mean Platelet Volume 6.9, Neutrophils (%) (Auto) 77.2H, Lymphocytes ( %) (Auto) 9.4L, Monocytes (%) (Auto) 11.4H, Eosinophils (%) (Auto) 1.4, Basophils (%) (Auto) 0.6 08/11/19 02:56: Sodium Level 141, Potassium Level 3.3L, Chloride Level 103, Carbon Dioxide Level 30, Anion Gap 9, Blood Urea Nitrogen 16, Creatinine 1.1, Estimat Glomerular Filtration Rate > 60, Glucose Level 103, Calcium Level 8.1L Current Medications Medications (Trade) Dose Ordered Sig/Nury Route PRN Reason Start Time Stop Time Status Last Admin Dose Admin Acetaminophen (Tylenol) 325 mg Q6H PRN RECTAL Temp >100.5 08/08/19 21:45 09/07/19 21:44 Acetaminophen (Tylenol) 650 mg Q4H PRN GT Mild Pain (Pain Scale 1-3) 08/08/19 10:45 09/07/19 10:44 Acetaminophen (Tylenol) 650 mg Q4H PRN GT Temp >100.5 08/08/19 10:45 09/07/19 10:44 Amantadine HCl (Symmetrel) 100 mg DAILY GT 08/09/19 09:00 09/08/19 08:59 08/10/19 08:31 Amlodipine Besylate (Norvasc) 5 mg DAILY GT 08/10/19 09:00 09/09/19 08:59 08/10/19 08:39 Ascorbic Acid (Vitamin C) 250 mg DAILY GT 08/09/19 09:00 09/08/19 08:59 08/10/19 08:38 Barium Sulfate (Readi-Cat 2) 450 ml NOW PRN ORAL Radiology Procedure 08/09/19 22:00 08/11/19 22:00 Clonidine HCl (Catapres Tab) 0.1 mg EVERY 8 HOURS GT 08/08/19 14:00 11/06/19 13:59 08/11/19 05:34 Dextrose/Sodium Chloride 1,000 ml @ 100 mls/hr Q10H IV 08/08/19 23:00 09/07/19 22:59 08/11/19 00:34 Doxazosin Mesylate (Cardura) 2 mg QHS GT 08/08/19 21:00 09/07/19 20:59 08/10/19 21:37 Folic Acid (Folate) 1 mg DAILY GT 08/08/19 14:30 09/07/19 14:29 08/10/19 08:39 Heparin Sodium (Porcine) (Heparin 5000 units/ml) 5,000 units EVERY 12 HOURS SUBQ 08/08/19 21:00 09/22/19 20:59 08/10/19 20:22 Hydralazine HCl (Apresoline) 10 mg Q6H PRN IV SBP> 160 08/08/19 21:45 11/06/19 21:44 Iohexol (OMNIPAQUE-300 100ml) 100 ml NOW PRN INJ Radiology Procedure 08/09/19 22:00 08/11/19 22:00 Iron Sucrose 100 mg/Sodium Chloride 60 ml @ 240 mls/hr BEDTIME IV 08/10/19 21:00 08/14/19 21:14 08/10/19 20:22 Lisinopril (PriniviL) 20 mg Q12HR GT 08/08/19 21:00 09/07/19 20:59 08/10/19 20:20 Lorazepam (Ativan 2mg/ml 1ml) 1 mg Q3H PRN IV For Anxiety 08/08/19 16:30 08/15/19 16:29 08/11/19 00:48 Metoprolol Tartrate (Lopressor) 25 mg Q12HR GT 08/09/19 09:00 11/07/19 08:59 08/10/19 20:20 Multivitamins (Multivitamins) 1 tab DAILY GT 08/09/19 09:00 09/08/19 08:59 08/10/19 08:39 Pantoprazole (Protonix) 40 mg EVERY 12 HOURS IVP 08/09/19 23:00 09/08/19 22:59 08/10/19 20:20 Piperacillin Sod/ Tazobactam Sod 3.375 gm/Sodium Chloride 110 ml @ 27.5 mls/hr Q8H IVPB 08/10/19 00:00 08/17/19 00:00 08/11/19 08:35 Vancomycin HCl (Vanco pharmacy to dose) 1 ea DAILY PRN MISC Per rx protocol 08/11/19 08:45 09/10/19 08:44 UNV Assessment/Plan Assessment/Plan anemia possible GIB sinus tachycardia respiratory failure trach chronic encephalopathy GT low K fevers PLAN gi and ID noted fevers noted and ID called await CT follow up for changes vent support feeds per gi . monitor HH not stable for dc yet impression, plan, and exam edited and reviewed in detail care discussed with Isaiah Villatoro MD Aug 11, 2019 08:49
--- NOTE | 2019-08-11 09:11 | Diagnostic Imaging Report ---
EXAM: XRAY Abdomen 1v HISTORY: NG tube placement COMPARISON: None. TECHNIQUE: Frontal view of the abdomen obtained. FINDINGS: There is a nonobstructed bowel gas pattern. NG tube noted in the stomach. There is a catheter over the pelvis perhaps in the bladder. No definite pathologic calcifications identified. There is no sign of free air. No acute abnormality noted of the visualized osseous structures. IMPRESSION: NG TUBE IN STOMACH. NO SIGN OF ACUTE DISEASE.
--- NOTE | 2019-08-11 09:38 | NUR ---
NURSE NOTES: Per Abdomen x-ray report impressions, "NGT is in stomach." Will proceed medications administration via NGT as ordered. Will continue to monitor patient.
[2019-08-11] MEDS: Amantadine 100mg cap GT SCH (09:45)
[2019-08-11] MEDS: Ascorbic Acid 500mg tab GT SCH (09:45)
[2019-08-11] MEDS: Pantoprazole Inj IVP SCH ×2 (09:46→20:13)
[2019-08-11] MEDS: Lisinopril 20mg tab GT SCH ×2 (09:46→21:20)
[2019-08-11] MEDS ORDERED: Vancomycin 1.5gm/NS Premix IVPB ONE ×2 (10:00→12:00)
--- NOTE | 2019-08-11 10:35 | NUR ---
RADIOLOGY DEPT., ABDOMEN X-RAY DONE.-P.DYE
--- NOTE | 2019-08-11 11:00 | NUR ---
NURSE NOTES: Wound culture pus of former GT site sample taken to lab for analysis.
[2019-08-11 12:00] VITALS: BP 138/94
--- NOTE | 2019-08-11 12:39 | NUR ---
CASE MANAGEMENT: REVIEW 08/11/2019 SI;anemia possible GIB VS: T 99.3 HR 78 RR 22 B/P 124/82 SATS 100% ON MECH VENT FIO2 40 LABS: K 3.3 CA 8.1 IS:DEXTROSE/SODIUM @ 100 ML/HR VENOFER IV QHS NORVASC GT QD VANCO IV Q12H LISINOPRIL GT Q12H LOPRESSOR GT Q12H ZOSYN IV Q8H SDU PLAN OF CARE: PUS FROM GT SITE >> WOUND CX CT ABD KUB
--- NOTE | 2019-08-11 12:44 | NUR ---
NURSE NOTES: Sputum culture sample taken to lab for analysis.
--- NOTE | 2019-08-11 13:05 | NUR ---
NURSE NOTES: Obtained telephone consent for IV contrast administration for CT abdomen w/ contrast per Dr. Hawk. Obtained consent from patient's POA Lucille Davis; . KEHINDE Elise second witness. Copy of consent placed in chart. Called CT department and informed of consent acquisition, per CT personnel acknowledged and informed this nurse will call back. Noted. Will continue to monitor patient.
--- NOTE | 2019-08-11 13:45 | Consultation ---
DATE OF CONSULTATION: 08/11/2019 INFECTIOUS DISEASE CONSULTATION CONSULTING PHYSICIAN: Jude Ochoa MD. REFERRING PHYSICIAN: Isaiah Hurt MD. REASON FOR CONSULTATION: Pneumonia. HISTORY OF PRESENT ILLNESS: This is a 74-year-old gentleman with history of respiratory failure, status post tracheostomy, who came in with a low hemoglobin. There was concern for pneumonia and an Infectious Disease consultation has been obtained for antibiotics. PAST MEDICAL HISTORY: 1. History of respiratory failure, status post tracheostomy. 2. History of encephalopathy. 3. Status post G-tube placement. 4. History of anemia. SOCIAL HISTORY: Unknown. FAMILY HISTORY: Unknown. REVIEW OF SYSTEMS: Unable to obtain currently. MEDICATIONS: As an inpatient, he is on IV vancomycin, iron, amlodipine, Zosyn, Protonix, amantadine, multivitamin, ascorbic acid, metoprolol, Tylenol, hydralazine, doxazosin, subcutaneous heparin, lisinopril, Ativan, folic acid, clonidine, and Tylenol. ALLERGIES: No known drug allergies. PHYSICAL EXAMINATION: VITAL SIGNS: Temperature of 99.3, T-max of 100, pulse of 78, respiratory rate 22, blood pressure 124/82. O2 saturation of 100%. He is on FiO2 of 40% Examination deferred due to possibility of COVID-19. LABORATORY AND DIAGNOSTIC DATA: White count 10.4, hemoglobin 8.5, hematocrit 26.4, MCV 105, platelet count of 212,000, with neutrophils of 77%. Sodium 141, potassium 3.3, chloride 103, bicarb 30, BUN 16, and creatinine 1.1, glucose 103. Calcium 8.1. Total bilirubin 0.7, AST 21, ALT 22, alkaline phosphatase 99. C-reactive protein 23.5. Total protein 6.8, albumin 1.6. Lipase of 52. UA showing 2 to 4 white cells. 08/09/2019 COVID-19 test was negative. 08/07/2019, COVID-19 test was negative blood cultures are negative from 08/07/2019. Nasal swab was negative for MRSA. Chest x-ray is showing old granulomatous disease. ASSESSMENT: This is a 74-year-old gentleman with history of respiratory failure, status post tracheostomy, who comes in with anemia and would be concerned regarding, 1. Pneumonia. 2. COVID-19 negative x2. 3. Respiratory failure, status post tracheostomy. PLAN: 1. Continue IV vancomycin and Zosyn. 2. We will order sputum for Gram stain and culture. 3. We will follow up cultures and adjust antibiotics accordingly. I would like to thank Dr. Hurt for this consultation. Jude Ochoa M.D. DR: LEON JOB#: [id number] CC:
--- NOTE | 2019-08-11 14:55 | NUR ---
INSURANCE UPDATED CLINICALS AND REVIEW HAVE BEEN FAXED TO: [facility] REF# [id number] COCOM:NICHOLAS [phone] P: [phone] F: [phone] AFTER HOURS # [phone]
--- NOTE | 2019-08-11 15:10 | NUR ---
NURSE NOTES: Dr. Cummings seen and examined patient at bedside. Examined wound site at former g-tube site and applied wound dressing, per Dr. Cummings okay to pack site with gauze and cover with gauze. Noted. Will continue to monitor patient.
--- NOTE | 2019-08-11 15:38 | Surgery Progress Note ---
Surgery Progress Note Subjective Additional Comments afebrile HD stable no wbc drainage from g tube site re-evaluated. d ressings noted. no foul odor but is draining. possible pus or old feeds since tube dislodged. pending CT scan today Objective Last 24 Hour Vital Signs Date Time Temp Pulse Resp B/P (MAP) Pulse Ox O2 Delivery O2 Flow Rate FiO2 08/11/19 14:12 138/94 08/11/19 12:00 Mechanical Ventilator Mechanical Ventilator 08/11/19 12:00 40 08/11/19 12:00 99.0 72 21 138/94 (109) 100 08/11/19 12:00 72 08/11/19 11:20 73 20 40 08/11/19 09:46 124/82 08/11/19 09:45 78 124/82 08/11/19 09:44 78 124/82 08/11/19 08:00 99.3 78 22 124/82 (96) 100 08/11/19 08:00 40 08/11/19 08:00 Mechanical Ventilator Mechanical Ventilator 08/11/19 08:00 74 08/11/19 07:20 82 17 40 08/11/19 05:34 128/73 08/11/19 04:00 40 08/11/19 04:00 98.2 63 20 133/86 (102) 100 08/11/19 04:00 Mechanical Ventilator Mechanical Ventilator 08/11/19 03:50 78 08/11/19 03:25 73 19 40 08/11/19 00:00 69 08/11/19 00:00 98.3 63 20 138/80 (99) 100 08/11/19 00:00 Mechanical Ventilator Mechanical Ventilator 08/10/19 23:04 57 23 40 08/10/19 21:37 118/64 08/10/19 20:20 87 131/79 08/10/19 20:20 131/79 08/10/19 20:00 98.4 67 21 138/78 (98) 100 08/10/19 20:00 40 08/10/19 20:00 Mechanical Ventilator Mechanical Ventilator 08/10/19 19:45 71 23 40 08/10/19 19:26 70 08/10/19 16:00 67 08/10/19 16:00 40 08/10/19 16:00 Mechanical Ventilator 08/10/19 16:00 99.1 68 21 102/55 (71) 100 I&O Intake and Output 08/10/19 08/11/19 19:00 07:00 Intake Total 330 ml 934.163 ml Output Total 500 ml 550 ml Balance -170 ml 384.163 ml Free Water 90 ml IV Total 724.163 ml Tube Feeding 330 ml 120 ml Output Urine Total 500 ml 550 ml # Bowel Movements 1 Dressing: saturated Wound: other Drains: other Cardiovascular: RSR Respiratory: decreased breath sounds Abdomen: soft, non-tender, present bowel sounds Extremities: no cyanosis Laboratory Tests Test 08/11/19 02:50 08/11/19 02:56 White Blood Count 10.4 K/UL (4.8-10.8) Red Blood Count 2.50 M/UL (4.70-6.10) L Hemoglobin 8.5 G/DL (14.2-18.0) L Hematocrit 26.4 % (42.0-52.0) L Mean Corpuscular Volume 105 FL (80-99) #H Mean Corpuscular Hemoglobin 33.8 PG (27.0-31.0) H Mean Corpuscular Hemoglobin Concent 32.1 G/DL (32.0-36.0) Red Cell Distribution Width 12.5 % (11.6-14.8) Platelet Count 212 K/UL (150-450) Mean Platelet Volume 6.9 FL (6.5-10.1) Neutrophils (%) (Auto) 77.2 % (45.0-75.0) H Lymphocytes (%) (Auto) 9.4 % (20.0-45.0) L Monocytes (%) (Auto) 11.4 % (1.0-10.0) H Eosinophils (%) (Auto) 1.4 % (0.0-3.0) Basophils (%) (Auto) 0.6 % (0.0-2.0) Sodium Level 141 MMOL/L (136-145) Potassium Level 3.3 MMOL/L (3.5-5.1) L Chloride Level 103 MMOL/L (98-107) Carbon Dioxide Level 30 MMOL/L (21-32) Anion Gap 9 mmol/L (5-15) Blood Urea Nitrogen 16 mg/dL (7-18) Creatinine 1.1 MG/DL (0.55-1.30) Estimat Glomerular Filtration Rate > 60 mL/min (>60) Glucose Level 103 MG/DL (74-106) Calcium Level 8.1 MG/DL (8.5-10.1) L Plan Problems: (1) Anemia (2) Unstageable decubitus ulcer Assessment & Plan: Pt presented on admission with multiple Pressure Injuries. Pt has a Tracheostomy and no areas of skin concerns noted under tracheal collar. Unstageable Sacral Pressure Injury(L)9.5cm x (W)10cm. Base of wound is 75% mixed slough and eschar,25% carolynn, Edges adherent with surrounding purple and maroon indurated borders. No odor or exudate noted. DTPI L Heel (L)3.7cm x (W)4.5cm. Base of wound is maroon and indurated with surrounding non-Blanching erythema. Callused skin periwound. Reabsorbing DTPI [place] L Foot (L)3.3cm x (W)2.5cm. Base of Pressure Injury is maroon but dry. No erythema or fluctuance periwound. DTPI Lateral L 1st metatarsal(L)1.5cm x (W)2cm. Base of wound is maroon and indurated.Callused skin periwound. DTPI Lateral R Heel (L)4.4cm x (W)6cm. Base of wound is indurated ,purple with surrounding maroon and fluctuant borders.Callusing periwound. DTPI R Hallux (L)1.8cm x (W)1.9cm. Base of wound is indurated and purple. Callusing periwound. DTPI Lateral R 1st metatarsal(L)2cm x (W)2.7cm. Base of wound is indurated and maroon. Callusing periwound. Tx.Plan: Cleanse Sacral wound with Saline. Apply TheraHoney. Apply Moisture Barrier Paste periwound. Cover with Optifoam drsg. Change every 3 days and prn. Apply Cavilon Skin Barrier to wounds L L Heel , L st metatarsal,Dorsal L Foot. Cover each Site with Optifoam drsg. Change every 7 days and prn. Apply Cavilon Skin Barrier to R Heel, R Hallux, R 1st metatarsal. Cover each site with Optifoam drsg. Change every 7 days and prn. APM/KHOA Mattress. Reposition at least every 2hours or as tolerated. Off-Load Heels with Pillows. (3) Leaking PEG tube Assessment & Plan: prior peg removed plan new placement soon will monitor site drainage noted packing placed ct pending to see if fluid collection (4) Person under investigation for COVID-19 Assessment & Plan: There is a tracheostomy. Calcified granuloma is seen in the right midlung. Granulomatous calcified nodes are seen in the left aortopulmonary window. No definite infiltrates, effusions, congestion. The heart size is upper limits normal. Impression: No definite acute abnormality Evidence of old granulomatous disease Homero Cummings Aug 11, 2019 15:37
[2019-08-11 16:00] VITALS: BP 110/66
--- NOTE | 2019-08-11 16:05 | NUR ---
*-* INSURANCE *-* UPDATED CLINICALS HAVE BEEN FAXED TO: [facility] REF# [id number] NCM:RYANNE P: [phone] F: [phone] Addendum: 08/10/19 at 1128 by MICHAEL FORBES CM sent to [facility] NO NUMBER PROVIDED IN BAR
--- NOTE | 2019-08-11 17:56 | Diagnostic Imaging Report ---
EXAM: CT Abdomen With Intravenous Contrast CLINICAL HISTORY: ABD PAIN TECHNIQUE: Axial computed tomography images of the abdomen with intravenous contrast. CTDI is 10.3 mGy and DLP is 518.6 mGy-cm. One or more of the following dose reduction techniques were used: automated exposure control, adjustment of the mA and/or kV according to patient size, use of iterative reconstruction technique. COMPARISON: No relevant prior studies available. FINDINGS: Lung bases: Atelectasis at the lung bases. Liver: Unremarkable. No mass. Gallbladder and bile ducts: Unremarkable. No calcified stones. No ductal dilation. Pancreas: Unremarkable. No mass. No ductal dilation. Spleen: Unremarkable. No splenomegaly. Adrenals: Unremarkable. No mass. Kidneys and ureters: Nonobstructing stone in the lower pole of the right kidney. Stomach and bowel: Tract from a recent percutaneous gastrostomy tube which is healing in the subcutaneous fat. Surrounding inflammatory changes but no abscess. Severe colonic diverticulosis within the sigmoid colon with mural hypertrophy however no surrounding inflammatory changes to suggest acute diverticulitis. Underlying malignancy not excluded. No obstruction. Intraperitoneal space: Unremarkable. No free air. No significant fluid collection. Bones/joints: No acute fracture. No dislocation. Soft tissues: Fat stranding in the ventral abdomen. Vasculature: Unremarkable. No abdominal aortic aneurysm. Lymph nodes: Unremarkable. No enlarged lymph nodes. Tubes, lines and devices: Thakkar catheter within the bladder. IMPRESSION: 1. Severe colonic diverticulosis within the sigmoid colon with mural hypertrophy however no surrounding inflammatory changes to suggest acute diverticulitis. Underlying malignancy not excluded. 2. Tract from a recent percutaneous gastrostomy tube which is healing in the subcutaneous fat. Surrounding inflammatory changes but no abscess.
--- NOTE | 2019-08-11 19:00 | NUR ---
NURSE NOTES: Contacted and informed Dr. Cummings of results of CT abdomen with contrast. Dr. Cummings acknowledged and gave no new orders at this time. Noted.
--- NOTE | 2019-08-11 19:06 | NUR ---
NURSE NOTES: Contacted and informed Dr. Hawk of CT abdomen with contrast result. Dr. Hawk acknowledged. Ordered to continue tube feeding with what patient was receiving from SNF or tube feeding recommendations per dietitian. Endorsed accordingly to oncoming nurse. Noted.
--- NOTE | 2019-08-11 19:15 | Progress Note ---
DATE: 08/11/2019 CARDIOLOGY PROGRESS NOTE SUBJECTIVE: The patient remains in sinus rhythm with rare atrial ectopics and rare sinus tachycardia. He is tolerating feedings by G-tube. OBJECTIVE: VITAL SIGNS: T-max 100, blood pressure 124/82, heart rate 78, respiratory rate 22. HEENT: Trach site with thin secretions. LUNGS: Bilateral breath sounds. Few rhonchi. CARDIAC: Regular rhythm and rate. Normal S1, S2. ABDOMEN: Soft. G-tube intact. EXTREMITIES: No edema. LABORATORY DATA: Notable for potassium 3.3. Iron saturation of 5%. IMPRESSION: 1. Paroxysmal atrial ectopy. 2. Physiologic sinus tachycardia. 3. Healthcare-associated pneumonia. 4. Respiratory failure with trach. 5. Status post G-tube revision. 6. Iron deficiency hypokalemia. PLAN: 1. No antiarrhythmics needed. 2. Agree with IV iron replacement. 3. Check magnesium. 4. Replace potassium. 5. Discontinue IV fluids. Augustine Fisher M.D. DR: LUKASZ JOB#: [id number] CC:
--- NOTE | 2019-08-11 19:20 | NUR ---
NURSE NOTES: Received patient and report from KEHINDE Cantu. Patient is observed resting in bed and remains alert and oriented x0-1. No pain noted upon assessment. Pt is currently trach to vent with the following settings: AC 14 TV 450 FiO2 40 PEEP 5 with an O2 saturation of 100% noted. Pt appears to be tolerating settings well. Bilateral lower lobe breath sounds noted to be diminished upon auscultation. Pt noted to be SR on tele monitor with a current HR of 63. Thakkar catheter noted which remains intact, patent and draining urine to gravity. R AC 20g IV catheter noted which remains asymptomatic, intact and patent with Zosyn infusing as prescribed. NGT remains intact and patent with no residual noted, marking noted to be at 75cm and anchored in place. NGT Feeding running as prescribed. Diagnostics reviewed at bedside. Skin alterations noted. Pt repositioned for comfort and safety. Fall, Aspiration and Skin precautions observed. R hand soft wrist restraint remains in place for patient safety. CMS remains intact. Pt remains resting in bed; Bed remains in the lowest position with the safety wheels engaged, call light within reach, side rails up x3 and bed alarm activated. Will continue plan of care. Will continue to monitor.
--- NOTE | 2019-08-11 19:24 | NUR ---
HAND-OFF: Report given to KEHINDE Watts.
--- NOTE | 2019-08-11 19:30 | NUR ---
NURSE NOTES: R wrist soft restraint discontinued. Pt acknowledges and agrees with treatment plan. Pt agrees not not pull at medical devices; education provided. Will continue to monitor.
[2019-08-11 20:00] VITALS: BP 112/63
[2019-08-11] MEDS: Doxazosin 4mg tab GT SCH (20:14)
[2019-08-11] MEDS: Iron Sucrose 100 MG in NS 55 ML IV SCH (20:14)
--- NOTE | 2019-08-11 22:24 | NUR ---
NURSE NOTES: Pts BP noted to be 109/62 therefore Catapres held per order parameters for patient safety. Will continue to monitor.
--- NOTE | 2019-08-11 22:26 | General Progress Note ---
Assessment/Plan Assessment/Plan: Assessment - GT migration out of stomach - Mushroom cap in anterior abdominal wall (GT removed) - Abdominal wall swelling, w/o abscess - Fever, tachy, WBC, CRP - suspect due to GT migration - anemia - OB (+) stools - Dark stools, but on PO Iron - s/p Trach Recommendations - PPI q 12 - NGT for meds and feeds - begin fees - broad spectrum abx - GT site topical abx - follow exam and labs - transfuse as needed - d/c PO Iron ----> IV Fe - laxative - Nic need PEG replacement at later time, once abd wall infection improved - Will hold off on diagnostic EGD, since will need another EGD for PEG placement - will d/w next of Kin Thank you Rubia Hawk MD Subjective Allergies: Coded Allergies: No Known Allergies (Unverified , 08/07/19) Subjective above noted had CT scan (+) inflammatory changes around GT site bu no abscess (+) some purulent d/c from GT site Objective Last 24 Hour Vital Signs Date Time Temp Pulse Resp B/P (MAP) Pulse Ox O2 Delivery O2 Flow Rate FiO2 08/11/19 21:20 67 131/76 08/11/19 21:20 131/76 08/11/19 20:00 98.7 65 18 112/63 (79) 100 08/11/19 20:00 Mechanical Ventilator Mechanical Ventilator 08/11/19 20:00 62 08/11/19 20:00 40 08/11/19 19:47 89 23 40 08/11/19 16:00 65 08/11/19 16:00 Mechanical Ventilator Mechanical Ventilator 08/11/19 16:00 99.0 70 22 110/66 (81) 100 08/11/19 16:00 40 08/11/19 15:20 77 17 40 08/11/19 14:12 138/94 08/11/19 12:00 Mechanical Ventilator Mechanical Ventilator 08/11/19 12:00 40 08/11/19 12:00 99.0 72 21 138/94 (109) 100 08/11/19 12:00 72 08/11/19 11:20 73 20 40 08/11/19 09:46 124/82 08/11/19 09:45 78 124/82 08/11/19 09:44 78 124/82 08/11/19 08:00 99.3 78 22 124/82 (96) 100 08/11/19 08:00 40 08/11/19 08:00 Mechanical Ventilator Mechanical Ventilator 08/11/19 08:00 74 08/11/19 07:20 82 17 40 08/11/19 05:34 128/73 08/11/19 04:00 40 08/11/19 04:00 98.2 63 20 133/86 (102) 100 08/11/19 04:00 Mechanical Ventilator Mechanical Ventilator 08/11/19 03:50 78 08/11/19 03:25 73 19 40 08/11/19 00:00 69 08/11/19 00:00 98.3 63 20 138/80 (99) 100 08/11/19 00:00 Mechanical Ventilator Mechanical Ventilator 08/10/19 23:04 57 23 40 Intake and Output 08/10/19 08/11/19 19:00 07:00 Intake Total 330 ml 934.163 ml Output Total 500 ml 550 ml Balance -170 ml 384.163 ml Free Water 90 ml IV Total 724.163 ml Tube Feeding 330 ml 120 ml Output Urine Total 500 ml 550 ml # Bowel Movements 1 Laboratory Tests 08/11/19 02:50: White Blood Count 10.4, Red Blood Count 2.50L, Hemoglobin 8.5L, Hematocrit 26.4L , Mean Corpuscular Volume 105#H, Mean Corpuscular Hemoglobin 33.8H, Mean Corpuscular Hemoglobin Concent 32.1, Red Cell Distribution Width 12.5, Platelet Count 212, Mean Platelet Volume 6.9, Neutrophils (%) (Auto) 77.2H, Lymphocytes ( %) (Auto) 9.4L, Monocytes (%) (Auto) 11.4H, Eosinophils (%) (Auto) 1.4, Basophils (%) (Auto) 0.6 08/11/19 02:56: Sodium Level 141, Potassium Level 3.3L, Chloride Level 103, Carbon Dioxide Level 30, Anion Gap 9, Blood Urea Nitrogen 16, Creatinine 1.1, Estimat Glomerular Filtration Rate > 60, Glucose Level 103, Calcium Level 8.1L Height (Feet): 5 Height (Inches): 6.00 Weight (Pounds): 216 Objective Obese AA Man NCAT (+) Trach coarse BS RR Abd obese, some distention, GT site closed, still with induration around site, ( +) some purulent d/c trace edema non interactive Rubia Hawk MD Aug 11, 2019 22:26
[2019-08-11] MEDS: Vancomycin 1gm/D5W 275ml IVPB SCH ×2 (23:07)
[2019-08-12] VITALS: BP 138/82
--- NOTE | 2019-08-12 | NUR ---
NURSE NOTES: Pt provided with a bed bath, oral care and linen change. Wound care performed per orders and ROM exercises performed per pt tolerance. Healing GT site dressing changed; small amount of purulent exudate noted. Pt tolerated care well. Fall, Aspiration and Skin precautions observed. Pt remains resting in bed; Bed remains in the lowest position with the safety wheels engaged, call light within reach, side rails up x3 and bed alarm activated. Will continue plan of care. Will continue to monitor.
[2019-08-12] MEDS: Piperacillin/Tazobactam 3.375 GM in NS 110 ML IVPB SCH ×3 (01:36→17:41)
--- NOTE | 2019-08-12 03:40 | NUR ---
NURSE NOTES: Bedside assessment performed, assessed pt for pain using FLACC scale with a score of 0 noted. Pt provided with a partial bed bath, oral care and suctioning for excess secretions. Pt tolerated care well. VS noted to be stable at this time. RT present at bedside performing trach care. Fall, Aspiration, Seizure and Skin precautions observed. Pt remains resting in bed; Bed remains in the lowest position with the safety wheels engaged, call light within reach, side rails up x3 and bed alarm activated. Will continue plan of care. Will continue to monitor.
[2019-08-12 04:00] VITALS: BP 139/79
--- NOTE | 2019-08-12 06:48 | NUR ---
NURSE NOTES: attempted to page primary physician regarding new order for R wrist restraint, for safety, as pt continues to attempt to pull at medical devices. Will await a call back. Will continue to monitor.
--- NOTE | 2019-08-12 07:04 | NUR ---
HAND-OFF: Report given to KEHINDE Murdock. Pt remains stable at this time. Endorsed plan of care.
--- NOTE | 2019-08-12 07:25 | NUR ---
NURSE NOTES: Received report from Jennifer Laguna RN. Patient is asleep, responsive to tactile stimuli, able to track with eyes. SR on surveillance system monitor, HR 64. Trach to vent with settings of AC 14, TV 450, FiO2 40%, PEEP 5, saturating at 100%. Left nare NGT in place, feeding on hold until 10:00 AM. G-tube site noted with clean and dry dressing in place. Right AC 20g infusing D5NS at 100cc/hr, asymptomatic. Thakkar catheter patent and draining well. Bed locked in lowest position with side rails up x 3. All needs attended to. Will continue to monitor.
[2019-08-12 07:29] LABS: BASOPHILS % (AUTO) 0.5 % (0.0-2.0); EOSINOPHILS % (AUTO) 2.2 % (0.0-3.0); HEMATOCRIT 25.5 % (42.0-52.0); HEMOGLOBIN 8.1 G/DL (14.2-18.0); LYMPHOCYTES % (AUTO) 9.5 % (20.0-45.0); MEAN CORPUSCULAR VOLUME 105 FL (80-99); MONOCYTES % (AUTO) 8.7 % (1.0-10.0); PLATELET COUNT 192 K/UL (150-450); RED BLOOD COUNT 2.43 M/UL (4.70-6.10); RED CELL DISTRIBUTION WIDTH 12.1 % (11.6-14.8); WHITE BLOOD COUNT 8.7 K/UL (4.8-10.8)
[2019-08-12 07:36] LABS: ANION GAP 6 mmol/L (5-15); BLOOD UREA NITROGEN 13 mg/dL (7-18); CALCIUM 7.9 MG/DL (8.5-10.1); CARBON DIOXIDE 31 MMOL/L (21-32); CHLORIDE 102 MMOL/L (98-107); SODIUM 139 MMOL/L (136-145)
[2019-08-12 08:00] VITALS: BP 144/83
--- NOTE | 2019-08-12 08:11 | NUR ---
NURSE NOTES: Left message for Dr. Hurt regarding K 3.0. Patient is now awake and impulsive, attempts to remove NGT, also reported to Dr. Hurt. Awaiting call back, will continue to monitor.
--- NOTE | 2019-08-12 08:20 | NUR ---
RD ASSESSMENT & RECOMMENDATIONS SEE CARE ACTIVITY FOR COMPLETE ASSESSMENT DAILY ESTIMATED NEEDS: Needs based on Critical care, wound 79gk 22-28 kcals/kg 5461-1516 total kcals 1.25-2 g protein/kg 99-158 g total protein 25-30 mL/kg 4048-3435 total fluid mLs NUTRITION DIAGNOSIS: Increased pro needs r/t wound healing as evidenced by pt w/ multiple wounds, refer to WC nurse eval, trach and peg dep. CURRENT TF: Osmolite 1.5 @60ml/hr x20 hrs ENTERAL NUTRITION RECOMMENDATIONS: Osmolite 1.5 @65ml/hr x 20 hrs to provide 1300ml, 1950kcal, 82g prot, 990ml free water - Increase goal rate to 65ml/hr to better meet needs - Add PROSOURCE QD (11g pro) to better meet est pro needs. - Flush per MD. HOB over 30 degrees ADDITIONAL RECOMMENDATIONS: 1) Per SNF: 5'11" and 174 lbs 2) Tf recs as above 3) Wound care: add JANE BID + Zn SO4 220 mg qd x10 days 4) Maintain calibrated bed scale wts 5) Monitor lytes, replete as needed (low K)
--- NOTE | 2019-08-12 08:30 | NUR ---
NURSE NOTES: Received telephone order from Dr. Hurt for right soft wrist restraint and 40 meq K-dur via NGT. Orders noted and carried out. Will continue to monitor and re-educate patient.
[2019-08-12] MEDS ORDERED: D5NS 1000ml IV ONE (08:45)
[2019-08-12] MEDS ORDERED: Tubing IV Blood Pump IV ONE (08:45)
[2019-08-12] MEDS: Pantoprazole Inj IVP SCH ×2 (09:08→20:24)
[2019-08-12] MEDS: Amantadine 100mg cap GT SCH (09:08)
[2019-08-12] MEDS: Lisinopril 20mg tab GT SCH ×2 (09:08→20:25)
[2019-08-12] MEDS: Heparin 5000 units/ml inj SUBQ SCH ×2 (09:10→20:26)
[2019-08-12] MEDS: Ascorbic Acid 500mg tab GT SCH (09:13)
--- NOTE | 2019-08-12 10:54 | General Progress Note ---
Assessment/Plan Assessment/Plan: Assessment/Plan Assessment/Plan: Assessment - GT migration out of stomach - Mushroom cap in anterior abdominal wall (GT removed) - Abdominal wall swelling, w/o abscess - Fever, tachy, WBC, CRP - suspect due to GT migration - anemia - OB (+) stools - Dark stools, but on PO Iron - s/p Trach Recommendations - PPI q 12 - NGT for meds and feeds - begin fees - broad spectrum abx - GT site topical abx - follow exam and labs - transfuse as needed - d/c PO Iron ----> IV Fe - laxative - Nic need PEG replacement at later time, once abd wall infection improved - Will hold off on diagnostic EGD, since will need another EGD for PEG placement - will d/w next of Kin Subjective ROS Limited/Unobtainable: No Allergies: Coded Allergies: No Known Allergies (Unverified , 08/07/19) Objective Last 24 Hour Vital Signs Date Time Temp Pulse Resp B/P (MAP) Pulse Ox O2 Delivery O2 Flow Rate FiO2 08/12/19 10:41 63 22 40 08/12/19 09:19 40 08/12/19 09:08 67 144/83 08/12/19 09:08 67 144/83 08/12/19 09:08 144/83 08/12/19 08:00 71 08/12/19 08:00 Mechanical Ventilator Mechanical Ventilator 08/12/19 08:00 97.7 67 21 144/83 (103) 100 08/12/19 07:32 65 26 40 08/12/19 05:28 139/79 08/12/19 04:00 Mechanical Ventilator Mechanical Ventilator 08/12/19 04:00 40 08/12/19 04:00 98.4 64 20 139/79 (99) 100 08/12/19 04:00 69 08/12/19 03:14 68 23 40 08/12/19 00:00 72 08/12/19 00:00 Mechanical Ventilator Mechanical Ventilator 08/12/19 00:00 98.6 80 22 138/82 (100) 100 08/12/19 00:00 40 08/11/19 23:20 93 24 40 08/11/19 21:20 67 131/76 08/11/19 21:20 131/76 08/11/19 20:00 98.7 65 18 112/63 (79) 100 08/11/19 20:00 Mechanical Ventilator Mechanical Ventilator 08/11/19 20:00 62 08/11/19 20:00 40 08/11/19 19:47 89 23 40 08/11/19 16:00 65 08/11/19 16:00 Mechanical Ventilator Mechanical Ventilator 08/11/19 16:00 99.0 70 22 110/66 (81) 100 08/11/19 16:00 40 08/11/19 15:20 77 17 40 08/11/19 14:12 138/94 08/11/19 12:00 Mechanical Ventilator Mechanical Ventilator 08/11/19 12:00 40 08/11/19 12:00 99.0 72 21 138/94 (109) 100 08/11/19 12:00 72 08/11/19 11:20 73 20 40 Intake and Output 08/11/19 08/12/19 19:00 07:00 Intake Total 60 ml 1040.829 ml Output Total 800 ml 1000 ml Balance -740 ml 40.829 ml Free Water 30 ml 90 ml IV Total 620.829 ml Tube Feeding 30 ml 330 ml Output Urine Total 800 ml 1000 ml # Bowel Movements 1 Laboratory Tests 08/12/19 06:25: White Blood Count 8.7, Red Blood Count 2.43L, Hemoglobin 8.1L, Hematocrit 25.5L , Mean Corpuscular Volume 105H, Mean Corpuscular Hemoglobin 33.5H, Mean Corpuscular Hemoglobin Concent 31.9L, Red Cell Distribution Width 12.1, Platelet Count 192, Mean Platelet Volume 7.7, Neutrophils (%) (Auto) 79.0H, Lymphocytes (%) (Auto) 9.5L, Monocytes (%) (Auto) 8.7, Eosinophils (%) (Auto) 2.2, Basophils (%) (Auto) 0.5, Sodium Level 139, Potassium Level 3.0L, Chloride Level 102, Carbon Dioxide Level 31, Anion Gap 6, Blood Urea Nitrogen 13, Creatinine 1.0, Estimat Glomerular Filtration Rate > 60, Glucose Level 148H, Calcium Level 7.9L, Magnesium Level 2.0 Height (Feet): 5 Height (Inches): 6.00 Weight (Pounds): 216 General Appearance: lethargic EENT: normal ENT inspection Neck: supple Cardiovascular: normal rate Respiratory/Chest: decreased breath sounds Abdomen: normal bowel sounds, non tender, soft Byron Gallagher MD Aug 12, 2019 10:54
[2019-08-12 12:00] VITALS: BP 141/81
[2019-08-12] MEDS: Vancomycin 1gm/D5W 275ml IVPB SCH ×4 (12:24→23:38)
--- NOTE | 2019-08-12 13:03 | Surgery Progress Note ---
Surgery Progress Note Subjective Additional Comments CT noted dressings going okay discussed with pcp and GI Objective Last 24 Hour Vital Signs Date Time Temp Pulse Resp B/P (MAP) Pulse Ox O2 Delivery O2 Flow Rate FiO2 08/12/19 12:00 98.1 84 22 141/81 (101) 100 08/12/19 12:00 40 08/12/19 12:00 Mechanical Ventilator Mechanical Ventilator 08/12/19 10:41 63 22 40 08/12/19 09:19 40 08/12/19 09:08 67 144/83 08/12/19 09:08 67 144/83 08/12/19 09:08 144/83 08/12/19 08:00 40 08/12/19 08:00 71 08/12/19 08:00 Mechanical Ventilator Mechanical Ventilator 08/12/19 08:00 97.7 67 21 144/83 (103) 100 08/12/19 07:32 65 26 40 08/12/19 05:28 139/79 08/12/19 04:00 Mechanical Ventilator Mechanical Ventilator 08/12/19 04:00 40 08/12/19 04:00 98.4 64 20 139/79 (99) 100 08/12/19 04:00 69 08/12/19 03:14 68 23 40 08/12/19 00:00 72 08/12/19 00:00 Mechanical Ventilator Mechanical Ventilator 08/12/19 00:00 98.6 80 22 138/82 (100) 100 08/12/19 00:00 40 08/11/19 23:20 93 24 40 08/11/19 21:20 67 131/76 08/11/19 21:20 131/76 08/11/19 20:00 98.7 65 18 112/63 (79) 100 08/11/19 20:00 Mechanical Ventilator Mechanical Ventilator 08/11/19 20:00 62 08/11/19 20:00 40 08/11/19 19:47 89 23 40 08/11/19 16:00 65 08/11/19 16:00 Mechanical Ventilator Mechanical Ventilator 08/11/19 16:00 99.0 70 22 110/66 (81) 100 08/11/19 16:00 40 08/11/19 15:20 77 17 40 08/11/19 14:12 138/94 I&O Intake and Output 08/11/19 08/12/19 19:00 07:00 Intake Total 60 ml 1040.829 ml Output Total 800 ml 1000 ml Balance -740 ml 40.829 ml Free Water 30 ml 90 ml IV Total 620.829 ml Tube Feeding 30 ml 330 ml Output Urine Total 800 ml 1000 ml # Bowel Movements 1 Dressing: saturated Wound: clean Cardiovascular: RSR Respiratory: clear Abdomen: soft, non-tender, present bowel sounds Extremities: no cyanosis, other Laboratory Tests Test 08/12/19 06:25 White Blood Count 8.7 K/UL (4.8-10.8) Red Blood Count 2.43 M/UL (4.70-6.10) L Hemoglobin 8.1 G/DL (14.2-18.0) L Hematocrit 25.5 % (42.0-52.0) L Mean Corpuscular Volume 105 FL (80-99) H Mean Corpuscular Hemoglobin 33.5 PG (27.0-31.0) H Mean Corpuscular Hemoglobin Concent 31.9 G/DL (32.0-36.0) L Red Cell Distribution Width 12.1 % (11.6-14.8) Platelet Count 192 K/UL (150-450) Mean Platelet Volume 7.7 FL (6.5-10.1) Neutrophils (%) (Auto) 79.0 % (45.0-75.0) H Lymphocytes (%) (Auto) 9.5 % (20.0-45.0) L Monocytes (%) (Auto) 8.7 % (1.0-10.0) Eosinophils (%) (Auto) 2.2 % (0.0-3.0) Basophils (%) (Auto) 0.5 % (0.0-2.0) Sodium Level 139 MMOL/L (136-145) Potassium Level 3.0 MMOL/L (3.5-5.1) L Chloride Level 102 MMOL/L (98-107) Carbon Dioxide Level 31 MMOL/L (21-32) Anion Gap 6 mmol/L (5-15) Blood Urea Nitrogen 13 mg/dL (7-18) Creatinine 1.0 MG/DL (0.55-1.30) Estimat Glomerular Filtration Rate > 60 mL/min (>60) Glucose Level 148 MG/DL (74-106) H Calcium Level 7.9 MG/DL (8.5-10.1) L Magnesium Level 2.0 MG/DL (1.8-2.4) Plan Problems: (1) Anemia (2) Unstageable decubitus ulcer Assessment & Plan: Pt presented on admission with multiple Pressure Injuries. Pt has a Tracheostomy and no areas of skin concerns noted under tracheal collar. Unstageable Sacral Pressure Injury(L)9.5cm x (W)10cm. Base of wound is 75% mixed slough and eschar,25% carolynn, Edges adherent with surrounding purple and maroon indurated borders. No odor or exudate noted. DTPI L Heel (L)3.7cm x (W)4.5cm. Base of wound is maroon and indurated with surrounding non-Blanching erythema. Callused skin periwound. Reabsorbing DTPI [place] L Foot (L)3.3cm x (W)2.5cm. Base of Pressure Injury is maroon but dry. No erythema or fluctuance periwound. DTPI Lateral L 1st metatarsal(L)1.5cm x (W)2cm. Base of wound is maroon and indurated.Callused skin periwound. DTPI Lateral R Heel (L)4.4cm x (W)6cm. Base of wound is indurated ,purple with surrounding maroon and fluctuant borders.Callusing periwound. DTPI R Hallux (L)1.8cm x (W)1.9cm. Base of wound is indurated and purple. Callusing periwound. DTPI Lateral R 1st metatarsal(L)2cm x (W)2.7cm. Base of wound is indurated and maroon. Callusing periwound. Tx.Plan: Cleanse Sacral wound with Saline. Apply TheraHoney. Apply Moisture Barrier Paste periwound. Cover with Optifoam drsg. Change every 3 days and prn. Apply Cavilon Skin Barrier to wounds L L Heel , L st metatarsal,Dorsal L Foot. Cover each Site with Optifoam drsg. Change every 7 days and prn. Apply Cavilon Skin Barrier to R Heel, R Hallux, R 1st metatarsal. Cover each site with Optifoam drsg. Change every 7 days and prn. APM/KHOA Mattress. Reposition at least every 2hours or as tolerated. Off-Load Heels with Pillows. (3) Leaking PEG tube Assessment & Plan: prior peg removed plan new placement soon will monitor site drainage noted packing placed Lung bases: Atelectasis at the lung bases. Liver: Unremarkable. No mass. Gallbladder and bile ducts: Unremarkable. No calcified stones. No ductal dilation. Pancreas: Unremarkable. No mass. No ductal dilation. Spleen: Unremarkable. No splenomegaly. Adrenals: Unremarkable. No mass. Kidneys and ureters: Nonobstructing stone in the lower pole of the right kidney. Stomach and bowel: Tract from a recent percutaneous gastrostomy tube which is healing in the subcutaneous fat. Surrounding inflammatory changes but no abscess. Severe colonic diverticulosis within the sigmoid colon with mural hypertrophy however no surrounding inflammatory changes to suggest acute diverticulitis. Underlying malignancy not excluded. No obstruction. Intraperitoneal space: Unremarkable. No free air. No significant fluid collection. Bones/joints: No acute fracture. No dislocation. Soft tissues: Fat stranding in the ventral abdomen. Vasculature: Unremarkable. No abdominal aortic aneurysm. Lymph nodes: Unremarkable. No enlarged lymph nodes. Tubes, lines and devices: Thakkar catheter within the bladder. IMPRESSION: 1. Severe colonic diverticulosis within the sigmoid colon with mural hypertrophy however no surrounding inflammatory changes to suggest acute diverticulitis. Underlying malignancy not excluded. 2. Tract from a recent percutaneous gastrostomy tube which is healing in the subcutaneous fat. Surrounding inflammatory changes but no abscess. (4) Person under investigation for COVID-19 Assessment & Plan: There is a tracheostomy. Calcified granuloma is seen in the right midlung. Granulomatous calcified nodes are seen in the left aortopulmonary window. No definite infiltrates, effusions, congestion. The heart size is upper limits normal. Impression: No definite acute abnormality Evidence of old granulomatous disease Homero Cummings Aug 12, 2019 13:03
--- NOTE | 2019-08-12 15:55 | NUR ---
NURSE NOTES: Left message for Dr. Fisher regarding patient's heart rhythm, noted with rhythm of ST 153 on quality assurance monitor chassis for about 4 seconds. At this time, patient is SB with a rate of 56. Awaiting call back. Will continue to monitor.
[2019-08-12 16:00] VITALS: BP 134/74
--- NOTE | 2019-08-12 17:11 | Pulmonology Progress Note ---
Subjective ROS Limited/Unobtainable: No Allergies: Coded Allergies: No Known Allergies (Unverified , 08/07/19) Objective Last 24 Hour Vital Signs Date Time Temp Pulse Resp B/P (MAP) Pulse Ox O2 Delivery O2 Flow Rate FiO2 08/12/19 16:00 98.1 60 20 134/74 (94) 100 08/12/19 16:00 Mechanical Ventilator Mechanical Ventilator 08/12/19 16:00 40 08/12/19 15:26 55 08/12/19 15:15 69 16 40 08/12/19 14:12 137/75 08/12/19 12:00 72 08/12/19 12:00 98.1 84 22 141/81 (101) 100 08/12/19 12:00 40 08/12/19 12:00 Mechanical Ventilator Mechanical Ventilator 08/12/19 10:41 63 22 40 08/12/19 09:19 40 08/12/19 09:08 67 144/83 08/12/19 09:08 67 144/83 08/12/19 09:08 144/83 08/12/19 08:00 40 08/12/19 08:00 71 08/12/19 08:00 Mechanical Ventilator Mechanical Ventilator 08/12/19 08:00 97.7 67 21 144/83 (103) 100 08/12/19 07:32 65 26 40 08/12/19 05:28 139/79 08/12/19 04:00 Mechanical Ventilator Mechanical Ventilator 08/12/19 04:00 40 08/12/19 04:00 98.4 64 20 139/79 (99) 100 08/12/19 04:00 69 08/12/19 03:14 68 23 40 08/12/19 00:00 72 08/12/19 00:00 Mechanical Ventilator Mechanical Ventilator 08/12/19 00:00 98.6 80 22 138/82 (100) 100 08/12/19 00:00 40 08/11/19 23:20 93 24 40 08/11/19 21:20 67 131/76 08/11/19 21:20 131/76 08/11/19 20:00 98.7 65 18 112/63 (79) 100 08/11/19 20:00 Mechanical Ventilator Mechanical Ventilator 08/11/19 20:00 62 08/11/19 20:00 40 08/11/19 19:47 89 23 40 Intake and Output 08/11/19 08/12/19 19:00 07:00 Intake Total 60 ml 1040.829 ml Output Total 800 ml 1000 ml Balance -740 ml 40.829 ml Free Water 30 ml 90 ml IV Total 620.829 ml Tube Feeding 30 ml 330 ml Output Urine Total 800 ml 1000 ml # Bowel Movements 1 Microbiology Date/Time Source Procedure Growth Status 08/11/19 09:50 Other Gram Stain - Final Resulted 08/11/19 09:50 Wound Culture - Preliminary Gram Negative Alfonso Resulted 08/11/19 12:30 Sputum Gram Stain - Final Resulted 08/11/19 12:30 Sputum Sputum Culture Pending Resulted 08/09/19 22:00 Nasopharynx Coronavirus COVID-19 PCR ([facility]) - Final Complete Laboratory Tests 08/12/19 06:25: White Blood Count 8.7, Red Blood Count 2.43L, Hemoglobin 8.1L, Hematocrit 25.5L , Mean Corpuscular Volume 105H, Mean Corpuscular Hemoglobin 33.5H, Mean Corpuscular Hemoglobin Concent 31.9L, Red Cell Distribution Width 12.1, Platelet Count 192, Mean Platelet Volume 7.7, Neutrophils (%) (Auto) 79.0H, Lymphocytes (%) (Auto) 9.5L, Monocytes (%) (Auto) 8.7, Eosinophils (%) (Auto) 2.2, Basophils (%) (Auto) 0.5, Sodium Level 139, Potassium Level 3.0L, Chloride Level 102, Carbon Dioxide Level 31, Anion Gap 6, Blood Urea Nitrogen 13, Creatinine 1.0, Estimat Glomerular Filtration Rate > 60, Glucose Level 148H, Calcium Level 7.9L, Magnesium Level 2.0 Current Medications Medications (Trade) Dose Ordered Sig/Nury Route PRN Reason Start Time Stop Time Status Last Admin Dose Admin Acetaminophen (Tylenol) 325 mg Q6H PRN RECTAL Temp >100.5 08/08/19 21:45 09/07/19 21:44 Acetaminophen (Tylenol) 650 mg Q4H PRN GT Mild Pain (Pain Scale 1-3) 08/08/19 10:45 09/07/19 10:44 Acetaminophen (Tylenol) 650 mg Q4H PRN GT Temp >100.5 08/08/19 10:45 09/07/19 10:44 Amantadine HCl (Symmetrel) 100 mg DAILY GT 08/09/19 09:00 09/08/19 08:59 08/12/19 09:08 Amlodipine Besylate (Norvasc) 5 mg DAILY GT 08/10/19 09:00 09/09/19 08:59 08/12/19 09:08 Ascorbic Acid (Vitamin C) 250 mg DAILY GT 08/09/19 09:00 09/08/19 08:59 08/12/19 09:13 Clonidine HCl (Catapres Tab) 0.1 mg EVERY 8 HOURS GT 08/08/19 14:00 11/06/19 13:59 08/12/19 14:12 Doxazosin Mesylate (Cardura) 2 mg QHS GT 08/08/19 21:00 09/07/19 20:59 08/11/19 20:14 Folic Acid (Folate) 1 mg DAILY GT 08/08/19 14:30 09/07/19 14:29 08/12/19 09:08 Heparin Sodium (Porcine) (Heparin 5000 units/ml) 5,000 units EVERY 12 HOURS SUBQ 08/08/19 21:00 09/22/19 20:59 08/12/19 09:10 Hydralazine HCl (Apresoline) 10 mg Q6H PRN IV SBP> 160 08/08/19 21:45 11/06/19 21:44 Iron Sucrose 100 mg/Sodium Chloride 60 ml @ 240 mls/hr BEDTIME IV 08/10/19 21:00 08/14/19 21:14 08/11/19 20:14 Lisinopril (PriniviL) 20 mg Q12HR GT 08/08/19 21:00 09/07/19 20:59 08/12/19 09:08 Lorazepam (Ativan 2mg/ml 1ml) 1 mg Q3H PRN IV For Anxiety 08/08/19 16:30 08/15/19 16:29 08/11/19 14:21 Metoprolol Tartrate (Lopressor) 25 mg Q12HR GT 08/09/19 09:00 11/07/19 08:59 08/12/19 09:08 Multivitamins (Multivitamins) 1 tab DAILY GT 08/09/19 09:00 09/08/19 08:59 08/12/19 09:08 Pantoprazole (Protonix) 40 mg EVERY 12 HOURS IVP 08/09/19 23:00 09/08/19 22:59 08/12/19 09:08 Piperacillin Sod/ Tazobactam Sod 3.375 gm/Sodium Chloride 110 ml @ 27.5 mls/hr Q8H IVPB 08/12/19 02:00 08/19/19 01:59 08/12/19 10:09 Potassium Chloride (K-Dur) 20 meq ONCE GT 08/12/19 21:00 08/12/19 23:00 Vancomycin HCl ([facility] pharmacy to dose) 1 ea DAILY PRN MISC Per rx protocol 08/11/19 08:45 09/10/19 08:44 Vancomycin HCl 1 gm/Dextrose 275 ml @ 183.708 mls/hr Q12H IVPB 08/12/19 00:00 08/17/19 00:00 08/12/19 12:24 Assessment/Plan Assessment/Plan Pulmonary Progress Note Subjective ROS Limited/Unobtainable: Yes Allergies: Coded Allergies: No Known Allergies (Unverified , 08/07/19) Subjective fevers better having pus from gt site Objective Vital Signs Noted Objective WDWN trach reduced breath sounds bilaterally without rhonchi or wheeze [id number] without MRG NABS nontender GT- noted drainage no CCE reduced LOC Microbiology Date/Time Source Procedure Growth Status 08/09/19 22:00 Nasopharynx Coronavirus COVID-19 PCR ([facility]) - Final Complete Laboratory Tests 08/11/19 02:50: White Blood Count 10.4, Red Blood Count 2.50L, Hemoglobin 8.5L, Hematocrit 26.4L , Mean Corpuscular Volume 105#H, Mean Corpuscular Hemoglobin 33.8H, Mean Corpuscular Hemoglobin Concent 32.1, Red Cell Distribution Width 12.5, Platelet Count 212, Mean Platelet Volume 6.9, Neutrophils (%) (Auto) 77.2H, Lymphocytes ( %) (Auto) 9.4L, Monocytes (%) (Auto) 11.4H, Eosinophils (%) (Auto) 1.4, Basophils (%) (Auto) 0.6 08/11/19 02:56: Sodium Level 141, Potassium Level 3.3L, Chloride Level 103, Carbon Dioxide Level 30, Anion Gap 9, Blood Urea Nitrogen 16, Creatinine 1.1, Estimat Glomerular Filtration Rate > 60, Glucose Level 103, Calcium Level 8.1L Current Medications Medications (Trade) Dose Ordered Sig/Nury Route PRN Reason Start Time Stop Time Status Last Admin Dose Admin Acetaminophen (Tylenol) 325 mg Q6H PRN RECTAL Temp >100.5 08/08/19 21:45 09/07/19 21:44 Acetaminophen (Tylenol) 650 mg Q4H PRN GT Mild Pain (Pain Scale 1-3) 08/08/19 10:45 09/07/19 10:44 Acetaminophen (Tylenol) 650 mg Q4H PRN GT Temp >100.5 08/08/19 10:45 09/07/19 10:44 Amantadine HCl (Symmetrel) 100 mg DAILY GT 08/09/19 09:00 09/08/19 08:59 08/10/19 08:31 Amlodipine Besylate (Norvasc) 5 mg DAILY GT 08/10/19 09:00 09/09/19 08:59 08/10/19 08:39 Ascorbic Acid (Vitamin C) 250 mg DAILY GT 08/09/19 09:00 09/08/19 08:59 08/10/19 08:38 Barium Sulfate (Readi-Cat 2) 450 ml NOW PRN ORAL Radiology Procedure 08/09/19 22:00 08/11/19 22:00 Clonidine HCl (Catapres Tab) 0.1 mg EVERY 8 HOURS GT 08/08/19 14:00 11/06/19 13:59 08/11/19 05:34 Dextrose/Sodium Chloride 1,000 ml @ 100 mls/hr Q10H IV 08/08/19 23:00 09/07/19 22:59 08/11/19 00:34 Doxazosin Mesylate (Cardura) 2 mg QHS GT 08/08/19 21:00 09/07/19 20:59 08/10/19 21:37 Folic Acid (Folate) 1 mg DAILY GT 08/08/19 14:30 09/07/19 14:29 08/10/19 08:39 Heparin Sodium (Porcine) (Heparin 5000 units/ml) 5,000 units EVERY 12 HOURS SUBQ 08/08/19 21:00 09/22/19 20:59 08/10/19 20:22 Hydralazine HCl (Apresoline) 10 mg Q6H PRN IV SBP> 160 08/08/19 21:45 11/06/19 21:44 Iohexol (OMNIPAQUE-300 100ml) 100 ml NOW PRN INJ Radiology Procedure 08/09/19 22:00 08/11/19 22:00 Iron Sucrose 100 mg/Sodium Chloride 60 ml @ 240 mls/hr BEDTIME IV 08/10/19 21:00 08/14/19 21:14 08/10/19 20:22 Lisinopril (PriniviL) 20 mg Q12HR GT 08/08/19 21:00 09/07/19 20:59 08/10/19 20:20 Lorazepam (Ativan 2mg/ml 1ml) 1 mg Q3H PRN IV For Anxiety 08/08/19 16:30 08/15/19 16:29 08/11/19 00:48 Metoprolol Tartrate (Lopressor) 25 mg Q12HR GT 08/09/19 09:00 11/07/19 08:59 08/10/19 20:20 Multivitamins (Multivitamins) 1 tab DAILY GT 08/09/19 09:00 09/08/19 08:59 08/10/19 08:39 Pantoprazole (Protonix) 40 mg EVERY 12 HOURS IVP 08/09/19 23:00 09/08/19 22:59 08/10/19 20:20 Piperacillin Sod/ Tazobactam Sod 3.375 gm/Sodium Chloride 110 ml @ 27.5 mls/hr Q8H IVPB 08/10/19 00:00 08/17/19 00:00 08/11/19 08:35 [facility] 1 ea DAILY PRN MISC Per rx protocol 08/11/19 08:45 09/10/19 08:44 UNV Assessment/Plan Assessment/Plan anemia possible GIB sinus tachycardia respiratory failure trach chronic encephalopathy GT low K fevers PLAN gi and ID noted fevers noted and ID called await CT follow up for changes vent support feeds per gi . monitor HH TFN PRN not stable for dc yet impression, plan, and exam edited and reviewed in detail care discussed with Augustine Queen MD Aug 12, 2019 17:10
--- NOTE | 2019-08-12 19:00 | NUR ---
NURSE NOTES: Received patient and report from KEHINDE Murdock. Patient is observed resting in bed and remains alert and oriented x1. No pain noted upon assessment. Pt is currently trach to vent with the following settings: AC 14 TV 450 FiO2 40 PEEP 5 with an O2 saturation of 100% noted. Pt appears to be tolerating settings well. Bilateral lower lobe breath sounds noted to be diminished upon auscultation. Pt noted to be SR on tele monitor with a current HR of 67. Thakkar catheter noted which remains intact, patent and draining urine to gravity. R AC 20g L wrist 22g IV catheters noted which remains asymptomatic, intact and patent. NGT remains intact and patent with no residual noted, marking noted to be at 75cm and anchored in place. NGT Feeding running as prescribed. Diagnostics reviewed at bedside. Skin alterations noted. Pt repositioned for comfort and safety. Fall, Aspiration and Skin precautions observed. R hand soft wrist restraint remains in place for patient safety. CMS remains intact. Pt remains resting in bed; Bed remains in the lowest position with the safety wheels engaged, call light within reach, side rails up x3 and bed alarm activated. Will continue plan of care. Will continue to monitor.
--- NOTE | 2019-08-12 19:20 | NUR ---
HAND-OFF: Report given to Jennifer Laguna RN.
[2019-08-12 20:00] VITALS: BP 148/76
[2019-08-12] MEDS: Iron Sucrose 100 MG in NS 55 ML IV SCH (20:24)
[2019-08-12] MEDS: Doxazosin 4mg tab GT SCH (20:25)
--- NOTE | 2019-08-12 21:15 | Progress Note ---
DATE: 08/12/2019 SUBJECTIVE: The patient with trach and ventilator support. The patient is status post G-tube removal and revision due to migration. The patient is status post GI bleed due to above. The patient had episodes of sinus tachycardia which were felt to be physiologically appropriate. Monitor now sinus with rare ectopy and sinus arrhythmia. OBJECTIVE: VITAL SIGNS: Blood pressure 144/83, pulse 67, respirations 21, afebrile. LUNGS: Bilateral breath sounds. CARDIAC: Regular rhythm and rate. Normal S1, S2. ABDOMEN: Soft, G-tube site with erythema. No drainage. EXTREMITIES: Trace edema. LABORATORY DATA: Magnesium is 2.0, potassium 3.0, BUN 13, creatinine 1, white count 8.7, hemoglobin 8.1. IMPRESSION: 1. Iron deficiency anemia status post gastrointestinal bleeding. 2. Hypokalemia. 3. Physiologic sinus tachycardia. 4. Paroxysmal atrial ectopy and sinus arrhythmia. PLAN: Continue IV iron. Potassium replacement ordered. Continue current antihypertensives. Off IV fluids. Monitor volume status, cardiorenal parameters and trend natriuretic peptide assay. Augustine Fisher M.D. DR: SEVERINO JOB#: [id number] CC:
--- NOTE | 2019-08-12 23:12 | NUR ---
NURSE NOTES: Assessed patient for removal of restraints. Pt immediately attempts to dislodge NG tube and pull at other medical devices including IV tubing and pack operator despite providing patient education. CMS remains intact and ROM exercises performed per patient tolerance. Will continue to monitor.
[2019-08-13] VITALS: BP 126/75
--- NOTE | 2019-08-13 01:49 | NUR ---
NURSE NOTES: Chuy from Microbiology called with wound culture results; positive for ESBL and VRE Will notify MD. Will continue to monitor.
[2019-08-13] MEDS: Piperacillin/Tazobactam 3.375 GM in NS 110 ML IVPB SCH ×3 (02:14→17:16)
--- NOTE | 2019-08-13 03:43 | NUR ---
NURSE NOTES: Pt noted to have an episode of VTach lasting 45 seconds. Pt assessed and noted to be cold and clammy but denies chest pain, shoulder pain and other s/sx of [place] at this time. VS acquired BP noted to be 105/62 deviating from baseline SBP 130-140 12 lead EKG performed which shows NSR with septal infarct, age undetermined. Left message for Dr Fisher. Will await a call back. Will continue to monitor.
--- NOTE | 2019-08-13 03:47 | NUR ---
NURSE NOTES: Dr Fisher returned call; discussed current patient condition and lab 20 MEQ K GTube once ordered at this time Will carry out orders. Will continue to monitor.
[2019-08-13 04:00] VITALS: BP 112/74
--- NOTE | 2019-08-13 06:09 | NUR ---
NURSE NOTES: Assessed patient for removal of restraints. Pt immediately attempts to dislodge NG tube and pull at other medical devices including IV tubing and cafeteria monitor despite providing patient education. CMS remains intact and ROM exercises performed per patient tolerance. Will continue to monitor.
--- NOTE | 2019-08-13 06:49 | NUR ---
NURSE NOTES: Left message for ID regarding wound culture is positive for VRE and ESBL Will await a call back. Will continue to monitor.
--- NOTE | 2019-08-13 07:11 | NUR ---
HAND-OFF: Report given to KEHINDE Owens. Pt remains stable at this time. Endorsed plan of care.
--- NOTE | 2019-08-13 07:40 | NUR ---
NURSE NOTES: Received report from Jennifer Laguna RN. Patient open eyes spontaneously, AOx0-1. SB with HR 53. Patient on trach to mechanical vent, AC 14, tidal Volume 450, Fio2 40, PEEP 5.0, O2 sat 100%. No cardiac, respiratory distress noticed at this time. Patient on Soft wrist restraint on right wrist, cap refill <3sec, able to move, no edema, skin intact at this time. Patient educated removal criteria but unable to comprehend. IV on right AC, left wrist 22G, asymptomatic, patent, intact, TKO. NGT on left nares 65cm, draining, NGT feeding on hold [id number]. Thakkar Catheter draining well to gravity and patent. All need attended, bed in lowest position, locked, side rails upx2, call light within reach, bed alarm on. Will continue to monitor.
[2019-08-13 07:54] LABS: BASOPHILS % (AUTO) 0.7 % (0.0-2.0); EOSINOPHILS % (AUTO) 1.5 % (0.0-3.0); HEMATOCRIT 27.3 % (42.0-52.0); HEMOGLOBIN 8.4 G/DL (14.2-18.0); LYMPHOCYTES % (AUTO) 11.2 % (20.0-45.0); MEAN CORPUSCULAR VOLUME 110 FL (80-99); MONOCYTES % (AUTO) 8.3 % (1.0-10.0); NEUTROPHILS % (AUTO) 78.4 % (45.0-75.0); PLATELET COUNT 231 K/UL (150-450); RED BLOOD COUNT 2.48 M/UL (4.70-6.10); RED CELL DISTRIBUTION WIDTH 13.2 % (11.6-14.8); WHITE BLOOD COUNT 7.9 K/UL (4.8-10.8)
[2019-08-13 08:00] VITALS: BP 136/76
[2019-08-13 08:31] LABS: ANION GAP 6 mmol/L (5-15); BLOOD UREA NITROGEN 12 mg/dL (7-18); CARBON DIOXIDE 31 MMOL/L (21-32); CHLORIDE 101 MMOL/L (98-107); CREATININE 0.9 MG/DL (0.55-1.30); POTASSIUM 3.6 MMOL/L (3.5-5.1); SODIUM 138 MMOL/L (136-145)
[2019-08-13] MEDS: Ascorbic Acid 500mg tab GT SCH (08:50)
[2019-08-13] MEDS: Pantoprazole Inj IVP SCH ×2 (08:50→20:11)
[2019-08-13] MEDS: Lisinopril 20mg tab GT SCH ×2 (08:51→20:11)
[2019-08-13] MEDS: Amantadine 100mg cap GT SCH (08:51)
[2019-08-13] MEDS: Heparin 5000 units/ml inj SUBQ SCH ×2 (08:56→20:13)
--- NOTE | 2019-08-13 09:30 | General Progress Note ---
Assessment/Plan Assessment/Plan: Assessment/Plan Assessment/Plan: Assessment - GT migration out of stomach - Mushroom cap in anterior abdominal wall (GT removed) - Abdominal wall swelling, w/o abscess - Fever, tachy, WBC, CRP - suspect due to GT migration - anemia - OB (+) stools - Dark stools, but on PO Iron - s/p Trach Recommendations - PPI q 12 - NGT for meds and feeds - begin fees - broad spectrum abx - GT site topical abx - follow exam and labs - transfuse as needed - d/c PO Iron ----> IV Fe - laxative - Nic need PEG replacement at later time, once abd wall infection improved - Will hold off on diagnostic EGD, since will need another EGD for PEG placement - will d/w next of Kin Subjective ROS Limited/Unobtainable: No Allergies: Coded Allergies: No Known Allergies (Unverified , 08/07/19) Objective Last 24 Hour Vital Signs Date Time Temp Pulse Resp B/P (MAP) Pulse Ox O2 Delivery O2 Flow Rate FiO2 08/13/19 08:56 51 136/76 08/13/19 08:51 59 136/76 08/13/19 08:51 136/76 08/13/19 08:00 97.9 59 20 136/76 (96) 100 08/13/19 06:59 62 23 40 08/13/19 05:45 145/87 08/13/19 04:00 98.1 70 20 112/74 (87) 100 08/13/19 04:00 40 08/13/19 04:00 Mechanical Ventilator Mechanical Ventilator 08/13/19 03:48 58 08/13/19 03:24 55 20 40 08/13/19 00:00 Mechanical Ventilator Mechanical Ventilator 08/13/19 00:00 98.3 62 20 126/75 (92) 100 08/12/19 23:34 51 08/12/19 23:12 52 16 40 08/12/19 21:40 129/64 08/12/19 21:39 64 129/64 08/12/19 20:25 148/76 08/12/19 20:00 98.3 67 20 148/76 (100) 100 08/12/19 20:00 40 08/12/19 20:00 Mechanical Ventilator Mechanical Ventilator 08/12/19 19:38 74 25 40 08/12/19 19:26 69 08/12/19 16:00 98.1 60 20 134/74 (94) 100 08/12/19 16:00 Mechanical Ventilator Mechanical Ventilator 08/12/19 16:00 40 08/12/19 15:26 55 08/12/19 15:15 69 16 40 08/12/19 14:12 137/75 08/12/19 12:00 72 08/12/19 12:00 98.1 84 22 141/81 (101) 100 08/12/19 12:00 40 08/12/19 12:00 Mechanical Ventilator Mechanical Ventilator 08/12/19 10:41 63 22 40 Intake and Output 08/12/19 08/13/19 19:00 07:00 Intake Total 1292.500 ml 1217.500 ml Output Total 630 ml Balance 1292.500 ml 587.500 ml Free Water 90 ml IV Total 612.500 ml 527.500 ml Tube Feeding 380 ml 600 ml Other 300 ml Output Urine Total 600 ml Gastric Drainage Total 30 ml # Bowel Movements 1 Laboratory Tests 08/13/19 06:30: Sodium Level 138, Potassium Level 3.6, Chloride Level 101, Carbon Dioxide Level 31, Anion Gap 6, Blood Urea Nitrogen 12, Creatinine 0.9, Estimat Glomerular Filtration Rate > 60, Glucose Level 121H, Calcium Level 8.0L, Magnesium Level 1.8, Pro-B-Type Natriuretic Peptide 586H 08/13/19 07:10: White Blood Count 7.9, Red Blood Count 2.48L, Hemoglobin 8.4L, Hematocrit 27.3L , Mean Corpuscular Volume 110H, Mean Corpuscular Hemoglobin 33.8H, Mean Corpuscular Hemoglobin Concent 30.7L, Red Cell Distribution Width 13.2, Platelet Count 231, Mean Platelet Volume 7.4, Neutrophils (%) (Auto) 78.4H, Lymphocytes (%) (Auto) 11.2L, Monocytes (%) (Auto) 8.3, Eosinophils (%) (Auto) 1.5, Basophils (%) (Auto) 0.7 Height (Feet): 5 Height (Inches): 6.00 Weight (Pounds): 216 General Appearance: no apparent distress EENT: normal ENT inspection Neck: supple Cardiovascular: normal rate Respiratory/Chest: decreased breath sounds Abdomen: normal bowel sounds, non tender, soft Extremities: non-tender Byron Gallagher MD Aug 13, 2019 09:30
--- NOTE | 2019-08-13 09:38 | Surgery Progress Note ---
Surgery Progress Note Subjective Additional Comments afebrile, HD stable comfortable labs okay no n/v/f/c Objective Last 24 Hour Vital Signs Date Time Temp Pulse Resp B/P (MAP) Pulse Ox O2 Delivery O2 Flow Rate FiO2 08/13/19 08:56 51 136/76 08/13/19 08:51 59 136/76 08/13/19 08:51 136/76 08/13/19 08:00 97.9 59 20 136/76 (96) 100 08/13/19 06:59 62 23 40 08/13/19 05:45 145/87 08/13/19 04:00 98.1 70 20 112/74 (87) 100 08/13/19 04:00 40 08/13/19 04:00 Mechanical Ventilator Mechanical Ventilator 08/13/19 03:48 58 08/13/19 03:24 55 20 40 08/13/19 00:00 Mechanical Ventilator Mechanical Ventilator 08/13/19 00:00 98.3 62 20 126/75 (92) 100 08/12/19 23:34 51 08/12/19 23:12 52 16 40 08/12/19 21:40 129/64 08/12/19 21:39 64 129/64 08/12/19 20:25 148/76 08/12/19 20:00 98.3 67 20 148/76 (100) 100 08/12/19 20:00 40 08/12/19 20:00 Mechanical Ventilator Mechanical Ventilator 08/12/19 19:38 74 25 40 08/12/19 19:26 69 08/12/19 16:00 98.1 60 20 134/74 (94) 100 08/12/19 16:00 Mechanical Ventilator Mechanical Ventilator 08/12/19 16:00 40 08/12/19 15:26 55 08/12/19 15:15 69 16 40 08/12/19 14:12 137/75 08/12/19 12:00 72 08/12/19 12:00 98.1 84 22 141/81 (101) 100 08/12/19 12:00 40 08/12/19 12:00 Mechanical Ventilator Mechanical Ventilator 08/12/19 10:41 63 22 40 I&O Intake and Output 08/12/19 08/13/19 19:00 07:00 Intake Total 1292.500 ml 1217.500 ml Output Total 630 ml Balance 1292.500 ml 587.500 ml Free Water 90 ml IV Total 612.500 ml 527.500 ml Tube Feeding 380 ml 600 ml Other 300 ml Output Urine Total 600 ml Gastric Drainage Total 30 ml # Bowel Movements 1 Dressing: saturated Wound: clean Cardiovascular: RSR Respiratory: clear, decreased breath sounds Abdomen: soft, non-tender, present bowel sounds, other, non-distended Extremities: no tenderness, no cyanosis Laboratory Tests Test 08/13/19 06:30 08/13/19 07:10 Sodium Level 138 MMOL/L (136-145) Potassium Level 3.6 MMOL/L (3.5-5.1) Chloride Level 101 MMOL/L (98-107) Carbon Dioxide Level 31 MMOL/L (21-32) Anion Gap 6 mmol/L (5-15) Blood Urea Nitrogen 12 mg/dL (7-18) Creatinine 0.9 MG/DL (0.55-1.30) Estimat Glomerular Filtration Rate > 60 mL/min (>60) Glucose Level 121 MG/DL (74-106) H Calcium Level 8.0 MG/DL (8.5-10.1) L Magnesium Level 1.8 MG/DL (1.8-2.4) Pro-B-Type Natriuretic Peptide 586 pg/mL (0-125) H White Blood Count 7.9 K/UL (4.8-10.8) Red Blood Count 2.48 M/UL (4.70-6.10) L Hemoglobin 8.4 G/DL (14.2-18.0) L Hematocrit 27.3 % (42.0-52.0) L Mean Corpuscular Volume 110 FL (80-99) H Mean Corpuscular Hemoglobin 33.8 PG (27.0-31.0) H Mean Corpuscular Hemoglobin Concent 30.7 G/DL (32.0-36.0) L Red Cell Distribution Width 13.2 % (11.6-14.8) Platelet Count 231 K/UL (150-450) Mean Platelet Volume 7.4 FL (6.5-10.1) Neutrophils (%) (Auto) 78.4 % (45.0-75.0) H Lymphocytes (%) (Auto) 11.2 % (20.0-45.0) L Monocytes (%) (Auto) 8.3 % (1.0-10.0) Eosinophils (%) (Auto) 1.5 % (0.0-3.0) Basophils (%) (Auto) 0.7 % (0.0-2.0) Plan Problems: (1) Anemia (2) Unstageable decubitus ulcer Assessment & Plan: Pt presented on admission with multiple Pressure Injuries. Pt has a Tracheostomy and no areas of skin concerns noted under tracheal collar. Unstageable Sacral Pressure Injury(L)9.5cm x (W)10cm. Base of wound is 75% mixed slough and eschar,25% carolynn, Edges adherent with surrounding purple and maroon indurated borders. No odor or exudate noted. DTPI L Heel (L)3.7cm x (W)4.5cm. Base of wound is maroon and indurated with surrounding non-Blanching erythema. Callused skin periwound. Reabsorbing DTPI Muddy L Foot (L)3.3cm x (W)2.5cm. Base of Pressure Injury is maroon but dry. No erythema or fluctuance periwound. DTPI Lateral L 1st metatarsal(L)1.5cm x (W)2cm. Base of wound is maroon and indurated.Callused skin periwound. DTPI Lateral R Heel (L)4.4cm x (W)6cm. Base of wound is indurated ,purple with surrounding maroon and fluctuant borders.Callusing periwound. DTPI R Hallux (L)1.8cm x (W)1.9cm. Base of wound is indurated and purple. Callusing periwound. DTPI Lateral R 1st metatarsal(L)2cm x (W)2.7cm. Base of wound is indurated and maroon. Callusing periwound. Tx.Plan: Cleanse Sacral wound with Saline. Apply TheraHoney. Apply Moisture Barrier Paste periwound. Cover with Optifoam drsg. Change every 3 days and prn. Apply Cavilon Skin Barrier to wounds L L Heel , L st metatarsal,Dorsal L Foot. Cover each Site with Optifoam drsg. Change every 7 days and prn. Apply Cavilon Skin Barrier to R Heel, R Hallux, R 1st metatarsal. Cover each site with Optifoam drsg. Change every 7 days and prn. APM/KHOA Mattress. Reposition at least every 2hours or as tolerated. Off-Load Heels with Pillows. (3) Leaking PEG tube Assessment & Plan: prior peg removed plan new placement soon will monitor site drainage noted packing placed Lung bases: Atelectasis at the lung bases. Liver: Unremarkable. No mass. Gallbladder and bile ducts: Unremarkable. No calcified stones. No ductal dilation. Pancreas: Unremarkable. No mass. No ductal dilation. Spleen: Unremarkable. No splenomegaly. Adrenals: Unremarkable. No mass. Kidneys and ureters: Nonobstructing stone in the lower pole of the right kidney. Stomach and bowel: Tract from a recent percutaneous gastrostomy tube which is healing in the subcutaneous fat. Surrounding inflammatory changes but no abscess. Severe colonic diverticulosis within the sigmoid colon with mural hypertrophy however no surrounding inflammatory changes to suggest acute diverticulitis. Underlying malignancy not excluded. No obstruction. Intraperitoneal space: Unremarkable. No free air. No significant fluid collection. Bones/joints: No acute fracture. No dislocation. Soft tissues: Fat stranding in the ventral abdomen. Vasculature: Unremarkable. No abdominal aortic aneurysm. Lymph nodes: Unremarkable. No enlarged lymph nodes. Tubes, lines and devices: Thakkar catheter within the bladder. IMPRESSION: 1. Severe colonic diverticulosis within the sigmoid colon with mural hypertrophy however no surrounding inflammatory changes to suggest acute diverticulitis. Underlying malignancy not excluded. 2. Tract from a recent percutaneous gastrostomy tube which is healing in the subcutaneous fat. Surrounding inflammatory changes but no abscess. (4) Person under investigation for COVID-19 Assessment & Plan: There is a tracheostomy. Calcified granuloma is seen in the right midlung. Granulomatous calcified nodes are seen in the left aortopulmonary window. No definite infiltrates, effusions, congestion. The heart size is upper limits normal. Impression: No definite acute abnormality Evidence of old granulomatous disease Homero Cummings Aug 13, 2019 09:38
--- NOTE | 2019-08-13 11:02 | NUR ---
NURSE NOTES: Dr. Fisher made aware patient was having 10 beats of V tach, now SR with HR 64. No new order received at this time, will continue to follow up.
[2019-08-13 12:00] VITALS: BP 117/59
--- NOTE | 2019-08-13 12:28 | NUR ---
NURSE NOTES: Pending Vanco trough, awaiting for result prior to administer Vanco scheduled 1200, Pharmacist made aware.
--- NOTE | 2019-08-13 13:21 | Infectious Diseases Prog Note ---
Assessment/Plan Assessment/Plan A: Gastrostomy infection VDRF Anemia Pressure ulcer Diverticulosis P; Continue Zosyn Discontinue Vancomycin Subjective ROS Limited/Unobtainable: Yes Constitutional: Denies: fever Allergies: Coded Allergies: No Known Allergies (Unverified , 08/07/19) Objective Vital Signs Last 24 Hour Vital Signs Date Time Temp Pulse Resp B/P (MAP) Pulse Ox O2 Delivery O2 Flow Rate FiO2 08/13/19 13:04 117/59 08/13/19 12:43 64 25 100 Mechanical Ventilator 40 08/13/19 12:29 68 23 40 08/13/19 12:00 98.2 58 21 117/59 (78) 100 08/13/19 12:00 40 08/13/19 12:00 Mechanical Ventilator Mechanical Ventilator 08/13/19 08:56 51 136/76 08/13/19 08:51 59 136/76 08/13/19 08:51 136/76 08/13/19 08:00 40 08/13/19 08:00 Mechanical Ventilator Mechanical Ventilator 08/13/19 08:00 89 08/13/19 08:00 97.9 59 20 136/76 (96) 100 08/13/19 06:59 62 23 40 08/13/19 05:45 145/87 08/13/19 04:00 98.1 70 20 112/74 (87) 100 08/13/19 04:00 40 08/13/19 04:00 Mechanical Ventilator Mechanical Ventilator 08/13/19 03:48 58 08/13/19 03:24 55 20 40 08/13/19 00:00 Mechanical Ventilator Mechanical Ventilator 08/13/19 00:00 98.3 62 20 126/75 (92) 100 08/12/19 23:34 51 08/12/19 23:12 52 16 40 08/12/19 21:40 129/64 08/12/19 21:39 64 129/64 08/12/19 20:25 148/76 08/12/19 20:00 98.3 67 20 148/76 (100) 100 08/12/19 20:00 40 08/12/19 20:00 Mechanical Ventilator Mechanical Ventilator 08/12/19 19:38 74 25 40 08/12/19 19:26 69 08/12/19 16:00 98.1 60 20 134/74 (94) 100 08/12/19 16:00 Mechanical Ventilator Mechanical Ventilator 08/12/19 16:00 40 08/12/19 15:26 55 08/12/19 15:15 69 16 40 08/12/19 14:12 137/75 Height (Feet): 5 Height (Inches): 6.00 Weight (Pounds): 216 General Appearance: no acute distress HEENT: status post trach Respiratory/Chest: decreased breath sounds, other - on ventilator Cardiovascular: normal rate Abdomen: soft, non tender, other - NG tube feeding Extremities: no edema Skin: ulcers Neurologic/Psychiatric: unresponsiveness Microbiology Date/Time Source Procedure Growth Status 08/11/19 09:50 Other Gram Stain - Final Complete 08/11/19 09:50 Wound Culture - Final Klebsiella Pneumoniae Esbl Pseudomonas Aeruginosa Enterococcus Faecalis - Vre Complete 08/11/19 12:30 Sputum Gram Stain - Final Resulted 08/11/19 12:30 Sputum Culture - Preliminary Gram Negative Alfonso Resulted Laboratory Tests Test 08/13/19 06:30 08/13/19 07:10 08/13/19 11:25 Sodium Level 138 MMOL/L (136-145) Potassium Level 3.6 MMOL/L (3.5-5.1) Chloride Level 101 MMOL/L (98-107) Carbon Dioxide Level 31 MMOL/L (21-32) Anion Gap 6 mmol/L (5-15) Blood Urea Nitrogen 12 mg/dL (7-18) Creatinine 0.9 MG/DL (0.55-1.30) Estimat Glomerular Filtration Rate > 60 mL/min (>60) Glucose Level 121 MG/DL (74-106) H Calcium Level 8.0 MG/DL (8.5-10.1) L Magnesium Level 1.8 MG/DL (1.8-2.4) Pro-B-Type Natriuretic Peptide 586 pg/mL (0-125) H White Blood Count 7.9 K/UL (4.8-10.8) Red Blood Count 2.48 M/UL (4.70-6.10) L Hemoglobin 8.4 G/DL (14.2-18.0) L Hematocrit 27.3 % (42.0-52.0) L Mean Corpuscular Volume 110 FL (80-99) H Mean Corpuscular Hemoglobin 33.8 PG (27.0-31.0) H Mean Corpuscular Hemoglobin Concent 30.7 G/DL (32.0-36.0) L Red Cell Distribution Width 13.2 % (11.6-14.8) Platelet Count 231 K/UL (150-450) Mean Platelet Volume 7.4 FL (6.5-10.1) Neutrophils (%) (Auto) 78.4 % (45.0-75.0) H Lymphocytes (%) (Auto) 11.2 % (20.0-45.0) L Monocytes (%) (Auto) 8.3 % (1.0-10.0) Eosinophils (%) (Auto) 1.5 % (0.0-3.0) Basophils (%) (Auto) 0.7 % (0.0-2.0) Vancomycin Level Trough 13.0 ug/mL (5.0-12.0) H Current Medications Medications (Trade) Dose Ordered Sig/Nury Route PRN Reason Start Time Stop Time Status Last Admin Dose Admin Acetaminophen (Tylenol) 325 mg Q6H PRN RECTAL Temp >100.5 08/08/19 21:45 09/07/19 21:44 Acetaminophen (Tylenol) 650 mg Q4H PRN GT Mild Pain (Pain Scale 1-3) 08/08/19 10:45 09/07/19 10:44 Acetaminophen (Tylenol) 650 mg Q4H PRN GT Temp >100.5 08/08/19 10:45 09/07/19 10:44 Amantadine HCl (Symmetrel) 100 mg DAILY GT 08/09/19 09:00 09/08/19 08:59 08/13/19 08:51 Amlodipine Besylate (Norvasc) 5 mg DAILY GT 08/10/19 09:00 09/09/19 08:59 08/13/19 08:51 Ascorbic Acid (Vitamin C) 250 mg DAILY GT 08/09/19 09:00 09/08/19 08:59 08/13/19 08:50 Clonidine HCl (Catapres Tab) 0.1 mg EVERY 8 HOURS GT 08/08/19 14:00 11/06/19 13:59 08/13/19 13:04 Doxazosin Mesylate (Cardura) 2 mg QHS GT 08/08/19 21:00 09/07/19 20:59 08/12/19 20:25 Folic Acid (Folate) 1 mg DAILY GT 08/08/19 14:30 09/07/19 14:29 08/13/19 08:51 Heparin Sodium (Porcine) (Heparin 5000 units/ml) 5,000 units EVERY 12 HOURS SUBQ 08/08/19 21:00 09/22/19 20:59 08/13/19 08:56 Hydralazine HCl (Apresoline) 10 mg Q6H PRN IV SBP> 160 08/08/19 21:45 11/06/19 21:44 Iron Sucrose 100 mg/Sodium Chloride 60 ml @ 240 mls/hr BEDTIME IV 08/10/19 21:00 08/14/19 21:14 08/12/19 20:24 Lisinopril (PriniviL) 20 mg Q12HR GT 08/08/19 21:00 09/07/19 20:59 08/13/19 08:51 Lorazepam (Ativan 2mg/ml 1ml) 1 mg Q3H PRN IV For Anxiety 08/08/19 16:30 08/15/19 16:29 08/11/19 14:21 Magnesium Sulfate 100 ml @ 100 mls/hr ONCE ONCE IVPB 08/13/19 12:30 08/13/19 13:29 08/13/19 13:04 Metoprolol Tartrate (Lopressor) 25 mg Q12HR GT 08/09/19 09:00 11/07/19 08:59 08/12/19 21:39 Multivitamins (Multivitamins) 1 tab DAILY GT 08/09/19 09:00 09/08/19 08:59 08/13/19 08:50 Pantoprazole (Protonix) 40 mg EVERY 12 HOURS IVP 08/09/19 23:00 09/08/19 22:59 08/13/19 08:50 Piperacillin Sod/ Tazobactam Sod 3.375 gm/Sodium Chloride 110 ml @ 27.5 mls/hr Q8H IVPB 08/12/19 02:00 08/19/19 01:59 08/13/19 09:44 Potassium Chloride (K-Dur) 20 meq ONCE GT 08/13/19 16:00 08/13/19 17:00 Vancomycin HCl (Vanco pharmacy to dose) 1 ea DAILY PRN MISC Per rx protocol 08/11/19 08:45 09/10/19 08:44 Vancomycin HCl 1 gm/Dextrose 275 ml @ 183.708 mls/hr Q12H IVPB 08/12/19 00:00 08/17/19 00:00 08/12/19 23:38 Issa Snow MD Aug 13, 2019 13:21
[2019-08-13 16:00] VITALS: BP 140/75
--- NOTE | 2019-08-13 17:13 | Pulmonology Progress Note ---
Subjective ROS Limited/Unobtainable: No Constitutional: Denies: fever Allergies: Coded Allergies: No Known Allergies (Unverified , 08/07/19) Objective Last 24 Hour Vital Signs Date Time Temp Pulse Resp B/P (MAP) Pulse Ox O2 Delivery O2 Flow Rate FiO2 08/13/19 16:33 65 26 40 08/13/19 16:00 Mechanical Ventilator Mechanical Ventilator 08/13/19 16:00 98.1 64 20 140/75 (96) 100 08/13/19 16:00 40 08/13/19 16:00 60 08/13/19 13:04 117/59 08/13/19 12:43 64 25 100 Mechanical Ventilator 40 08/13/19 12:29 68 23 40 08/13/19 12:00 98.2 58 21 117/59 (78) 100 08/13/19 12:00 40 08/13/19 12:00 70 08/13/19 12:00 Mechanical Ventilator Mechanical Ventilator 08/13/19 08:56 51 136/76 08/13/19 08:51 59 136/76 08/13/19 08:51 136/76 08/13/19 08:00 40 08/13/19 08:00 Mechanical Ventilator Mechanical Ventilator 08/13/19 08:00 89 08/13/19 08:00 97.9 59 20 136/76 (96) 100 08/13/19 06:59 62 23 40 08/13/19 05:45 145/87 08/13/19 04:00 98.1 70 20 112/74 (87) 100 08/13/19 04:00 40 08/13/19 04:00 Mechanical Ventilator Mechanical Ventilator 08/13/19 03:48 58 08/13/19 03:24 55 20 40 08/13/19 00:00 Mechanical Ventilator Mechanical Ventilator 08/13/19 00:00 98.3 62 20 126/75 (92) 100 08/12/19 23:34 51 08/12/19 23:12 52 16 40 08/12/19 21:40 129/64 08/12/19 21:39 64 129/64 08/12/19 20:25 148/76 08/12/19 20:00 98.3 67 20 148/76 (100) 100 08/12/19 20:00 40 08/12/19 20:00 Mechanical Ventilator Mechanical Ventilator 08/12/19 19:38 74 25 40 08/12/19 19:26 69 Intake and Output 08/12/19 08/13/19 19:00 07:00 Intake Total 1292.500 ml 1217.500 ml Output Total 630 ml Balance 1292.500 ml 587.500 ml Free Water 90 ml IV Total 612.500 ml 527.500 ml Tube Feeding 380 ml 600 ml Other 300 ml Output Urine Total 600 ml Gastric Drainage Total 30 ml # Bowel Movements 1 Microbiology Date/Time Source Procedure Growth Status 08/11/19 09:50 Other Gram Stain - Final Complete 08/11/19 09:50 Wound Culture - Final Klebsiella Pneumoniae Esbl Pseudomonas Aeruginosa Enterococcus Faecalis - Vre Complete 08/11/19 12:30 Sputum Gram Stain - Final Resulted 08/11/19 12:30 Sputum Culture - Preliminary Gram Negative Alfonso Resulted Laboratory Tests 08/13/19 06:30: Sodium Level 138, Potassium Level 3.6, Chloride Level 101, Carbon Dioxide Level 31, Anion Gap 6, Blood Urea Nitrogen 12, Creatinine 0.9, Estimat Glomerular Filtration Rate > 60, Glucose Level 121H, Calcium Level 8.0L, Magnesium Level 1.8, Pro-B-Type Natriuretic Peptide 586H 08/13/19 07:10: White Blood Count 7.9, Red Blood Count 2.48L, Hemoglobin 8.4L, Hematocrit 27.3L , Mean Corpuscular Volume 110H, Mean Corpuscular Hemoglobin 33.8H, Mean Corpuscular Hemoglobin Concent 30.7L, Red Cell Distribution Width 13.2, Platelet Count 231, Mean Platelet Volume 7.4, Neutrophils (%) (Auto) 78.4H, Lymphocytes (%) (Auto) 11.2L, Monocytes (%) (Auto) 8.3, Eosinophils (%) (Auto) 1.5, Basophils (%) (Auto) 0.7 08/13/19 11:25: Vancomycin Level Trough 13.0H Current Medications Medications (Trade) Dose Ordered Sig/Nury Route PRN Reason Start Time Stop Time Status Last Admin Dose Admin Acetaminophen (Tylenol) 325 mg Q6H PRN RECTAL Temp >100.5 08/08/19 21:45 09/07/19 21:44 Acetaminophen (Tylenol) 650 mg Q4H PRN GT Mild Pain (Pain Scale 1-3) 08/08/19 10:45 7/9/20 10:44 Acetaminophen (Tylenol) 650 mg Q4H PRN GT Temp >100.5 08/08/19 10:45 09/07/19 10:44 Amantadine HCl (Symmetrel) 100 mg DAILY GT 08/09/19 09:00 09/08/19 08:59 08/13/19 08:51 Amlodipine Besylate (Norvasc) 5 mg DAILY GT 08/10/19 09:00 09/09/19 08:59 08/13/19 08:51 Ascorbic Acid (Vitamin C) 250 mg DAILY GT 08/09/19 09:00 09/08/19 08:59 08/13/19 08:50 Clonidine HCl (Catapres Tab) 0.1 mg EVERY 8 HOURS GT 08/08/19 14:00 11/06/19 13:59 08/13/19 13:04 Doxazosin Mesylate (Cardura) 2 mg QHS GT 08/08/19 21:00 09/07/19 20:59 08/12/19 20:25 Folic Acid (Folate) 1 mg DAILY GT 08/08/19 14:30 09/07/19 14:29 08/13/19 08:51 Heparin Sodium (Porcine) (Heparin 5000 units/ml) 5,000 units EVERY 12 HOURS SUBQ 08/08/19 21:00 09/22/19 20:59 08/13/19 08:56 Hydralazine HCl (Apresoline) 10 mg Q6H PRN IV SBP> 160 08/08/19 21:45 11/06/19 21:44 Iron Sucrose 100 mg/Sodium Chloride 60 ml @ 240 mls/hr BEDTIME IV 08/10/19 21:00 08/14/19 21:14 08/12/19 20:24 Lisinopril (PriniviL) 20 mg Q12HR GT 08/08/19 21:00 09/07/19 20:59 08/13/19 08:51 Lorazepam (Ativan 2mg/ml 1ml) 1 mg Q3H PRN IV For Anxiety 08/08/19 16:30 08/15/19 16:29 08/11/19 14:21 Metoprolol Tartrate (Lopressor) 25 mg Q12HR GT 08/09/19 09:00 11/07/19 08:59 08/12/19 21:39 Multivitamins (Multivitamins) 1 tab DAILY GT 08/09/19 09:00 09/08/19 08:59 08/13/19 08:50 Pantoprazole (Protonix) 40 mg EVERY 12 HOURS IVP 08/09/19 23:00 09/08/19 22:59 08/13/19 08:50 Piperacillin Sod/ Tazobactam Sod 3.375 gm/Sodium Chloride 110 ml @ 27.5 mls/hr Q8H IVPB 08/12/19 02:00 08/19/19 01:59 08/13/19 09:44 Assessment/Plan Assessment/Plan Pulmonary Progress Note Subjective ROS Limited/Unobtainable: Yes Allergies: Coded Allergies: No Known Allergies (Unverified , 08/07/19) Subjective fevers better having pus from gt site Objective Vital Signs Noted Objective WDWN trach reduced breath sounds bilaterally without rhonchi or wheeze [id number] without MRG NABS nontender GT- noted drainage no CCE reduced LOC Assessment/Plan anemia possible GIB sinus tachycardia respiratory failure trach chronic encephalopathy GT low K fevers PLAN GI and ID noted fevers noted and ID called await CT follow up for changes vent support feeds per gi . monitor HH TFN PRN not stable for dc yet impression, plan, and exam edited and reviewed in detail care discussed with Augustine Queen MD Aug 13, 2019 17:13
[2019-08-13] MEDS ORDERED: Tubing IV Secondary IV ONE (17:52)
[2019-08-13] MEDS ORDERED: NS 275ml ONE (17:52)
[2019-08-13] MEDS ORDERED: D5NS 1000ml IV ONE (17:52)
--- NOTE | 2019-08-13 19:05 | NUR ---
NURSE NOTES: Received report from Graciela RN/ KEHINDE Murdock. Patient awake in bed, look at nurse's eyes when name was called afebrile and has no respiratory distress noted. [facility] 14, TV 450, FiO2 40%, peep 5 working well. With Left Nares NGT in place verified by xray, clean and intact. With R AC 20g and Left wrist 22 G intact, patent and asymptomatic. With FC to urine bag draining well. Needs were attended. HOB elevated. Bed wheels are locked and side rail are up. Call light within reach.
--- NOTE | 2019-08-13 19:15 | NUR ---
HAND-OFF: Report given to KEHINDE CHILEL. Endorsed plan of care. Patient in a stable condition at this time.
[2019-08-13 20:00] VITALS: BP 136/77
[2019-08-13] MEDS: Doxazosin 4mg tab GT SCH (20:11)
[2019-08-13] MEDS: Iron Sucrose 100 MG in NS 55 ML IV SCH (20:13)
--- NOTE | 2019-08-13 20:24 | NUR ---
NURSE NOTES: Heparin not given due to black stool noted
--- NOTE | 2019-08-13 21:00 | Progress Note ---
DATE: 08/13/2019 CARDIOLOGY PROGRESS NOTE SUBJECTIVE: The patient had a 10-beat run of nonsustained ventricular tachycardia today, which was asymptomatic. The patient remains on ventilator support. OBJECTIVE: VITAL SIGNS: Blood pressure 140/75, heart rate 64, respirations 20, and afebrile. LUNGS: Few rhonchi. Trach site clean. HEART: Regular rhythm and rate. Normal S1, S2. ABDOMEN: Soft. EXTREMITIES: No edema. LABORATORY DATA: White count 7.9 and hemoglobin 8.4. Sodium 138, potassium 3.6, bicarb 31, BUN 12, and creatinine 0.9. Pro-natriuretic peptide 586. IMPRESSION: 1. Iron deficiency anemia. 2. Status post gastrointestinal bleeding. 3. Borderline hypokalemia. 4. Paroxysmal sinus tachycardia. 5. Paroxysmal atrial ectopy. 6. Nonsustained ventricular tachycardia. PLAN: 1. Additional potassium replacement. 2. Follow up magnesium and potassium levels. 3. Antimicrobials. 4. Respiratory hygiene per ventilator support. 5. Avoid beta-agonist. 6. Continue beta-albaro therapy and titrate remainder of antihypertensives as needed. Augustine Fisher M.D. DR: JARRED JOB#: [id number] CC:
[2019-08-14] VITALS: BP 108/65
[2019-08-14] MEDS: Piperacillin/Tazobactam 3.375 GM in NS 110 ML IVPB SCH ×3 (02:21→17:31)
[2019-08-14 04:00] VITALS: BP 154/92
[2019-08-14 06:24] LABS: HEMATOCRIT 26.3 % (42.0-52.0); HEMOGLOBIN 8.1 G/DL (14.2-18.0); MEAN CORPUSCULAR VOLUME 111 FL (80-99); PLATELET COUNT 223 K/UL (150-450); RED BLOOD COUNT 2.38 M/UL (4.70-6.10); RED CELL DISTRIBUTION WIDTH 13.5 % (11.6-14.8); WHITE BLOOD COUNT 7.9 K/UL (4.8-10.8)
[2019-08-14 07:22] LABS: ALANINE AMINOTRANSFERASE 20 U/L (12-78); ALBUMIN 1.6 G/DL (3.4-5.0); ALBUMIN/GLOBULIN RATIO 0.3 (1.0-2.7); ALKALINE PHOSPHATASE 88 U/L (46-116); ANION GAP 6 mmol/L (5-15); ASPARTATE AMINO TRANSFERASE 20 U/L (15-37); BILIRUBIN,TOTAL 0.3 MG/DL (0.2-1.0); BLOOD UREA NITROGEN 13 mg/dL (7-18); CALCIUM 8.1 MG/DL (8.5-10.1); CARBON DIOXIDE 31 MMOL/L (21-32); CHLORIDE 102 MMOL/L (98-107); POTASSIUM 3.4 MMOL/L (3.5-5.1); SODIUM 139 MMOL/L (136-145)
--- NOTE | 2019-08-14 07:35 | NUR ---
HAND-OFF: Report given to KEHINDE Hughes/ KEHINDE Calle.
--- NOTE | 2019-08-14 07:55 | NUR ---
NURSE NOTES: Received report from KEHINDE CHILEL. Patient was on bed and open eyes. Patient on trach to mechanical vent, AC 14, tidal Volume 450, Fio2 40, PEEP 5.0, O2 sat 100%. No cardiac, respiratory distress noticed at this time. Patient on Soft wrist restraint on right wrist. IV on right AC and left wrist 22G noted. Zosyn running. Asymptomatic, patent, intact, TKO. NGT on left moe. Patient is on Thakkar Catheter draining well to gravity and patent. Bed in lowest position, locked, side rails upx2, call light within reach, bed alarm on. Will continue to monitor.
[2019-08-14 08:00] VITALS: BP 147/79
--- NOTE | 2019-08-14 08:22 | Pulmonology Progress Note ---
Subjective ROS Limited/Unobtainable: No Constitutional: Denies: fever Allergies: Coded Allergies: No Known Allergies (Unverified , 08/07/19) Subjective remains ill pus from gt site low K replaced low HH Objective Last 24 Hour Vital Signs Date Time Temp Pulse Resp B/P (MAP) Pulse Ox O2 Delivery O2 Flow Rate FiO2 08/14/19 05:55 148/77 08/14/19 04:00 97.5 67 20 154/92 (112) 100 08/14/19 04:00 40 08/14/19 04:00 Mechanical Ventilator Mechanical Ventilator 08/14/19 03:51 64 36 40 08/14/19 03:33 56 08/14/19 00:00 Mechanical Ventilator Mechanical Ventilator 08/14/19 00:00 40 08/14/19 00:00 98.4 52 20 108/65 (79) 100 08/13/19 23:31 49 08/13/19 23:24 57 27 40 08/13/19 21:52 137/72 08/13/19 21:00 59 25 40 08/13/19 20:11 63 136/77 08/13/19 20:11 136/77 08/13/19 20:00 40 08/13/19 20:00 98.6 63 20 136/77 (96) 100 08/13/19 20:00 Mechanical Ventilator Mechanical Ventilator 08/13/19 19:25 58 08/13/19 16:33 65 26 40 08/13/19 16:00 Mechanical Ventilator Mechanical Ventilator 08/13/19 16:00 98.1 64 20 140/75 (96) 100 08/13/19 16:00 40 08/13/19 16:00 60 08/13/19 13:04 117/59 08/13/19 12:43 64 25 100 Mechanical Ventilator 40 08/13/19 12:29 68 23 40 08/13/19 12:00 98.2 58 21 117/59 (78) 100 08/13/19 12:00 40 08/13/19 12:00 70 08/13/19 12:00 Mechanical Ventilator Mechanical Ventilator 08/13/19 08:56 51 136/76 08/13/19 08:51 59 136/76 08/13/19 08:51 136/76 Intake and Output 08/13/19 08/14/19 19:00 07:00 Intake Total 745.0 ml 1045.0 ml Output Total 950 ml 700 ml Balance -205.0 ml 345.0 ml Free Water 100 ml IV Total 265.0 ml 225.0 ml Tube Feeding 480 ml 720 ml Output Urine Total 930 ml 700 ml Gastric Drainage Total 20 ml # Bowel Movements 2 1 Objective WDWN trach reduced breath sounds bilaterally without rhonchi or wheeze [id number] without MRG NABS nontender GT- noted drainage no CCE reduced LOC Microbiology Date/Time Source Procedure Growth Status 08/11/19 09:50 Other Gram Stain - Final Complete 08/11/19 09:50 Wound Culture - Final Klebsiella Pneumoniae Esbl Pseudomonas Aeruginosa Enterococcus Faecalis - Vre Complete 08/11/19 12:30 Sputum Gram Stain - Final Resulted 08/11/19 12:30 Sputum Culture - Preliminary Providencia Stuartii Pseudomonas Aeruginosa Gram Negative Bacillus 3 Resulted Laboratory Tests 08/13/19 11:25: Vancomycin Level Trough 13.0H 08/14/19 03:28: White Blood Count 7.9, Red Blood Count 2.38L, Hemoglobin 8.1L, Hematocrit 26.3L , Mean Corpuscular Volume 111H, Mean Corpuscular Hemoglobin 34.0H, Mean Corpuscular Hemoglobin Concent 30.7L, Red Cell Distribution Width 13.5, Platelet Count 223, Mean Platelet Volume 7.7, Neutrophils (%) (Auto) , Lymphocytes (%) (Auto) , Monocytes (%) (Auto) , Eosinophils (%) (Auto) , Basophils (%) (Auto) , Sodium Level 139, Potassium Level 3.4L, Chloride Level 102, Carbon Dioxide Level 31, Anion Gap 6, Blood Urea Nitrogen 13, Creatinine 1.0, Estimat Glomerular Filtration Rate > 60, Glucose Level 149H, Calcium Level 8.1L, Magnesium Level 2.0, Total Bilirubin 0.3, Aspartate Amino Transf (AST/SGOT ) 20, Alanine Aminotransferase (ALT/SGPT) 20, Alkaline Phosphatase 88, Total Protein 6.6, Albumin 1.6L, Globulin 5.0, Albumin/Globulin Ratio 0.3L Current Medications Medications (Trade) Dose Ordered Sig/Nury Route PRN Reason Start Time Stop Time Status Last Admin Dose Admin Acetaminophen (Tylenol) 325 mg Q6H PRN RECTAL Temp >100.5 08/08/19 21:45 09/07/19 21:44 Acetaminophen (Tylenol) 650 mg Q4H PRN GT Mild Pain (Pain Scale 1-3) 08/08/19 10:45 09/07/19 10:44 Acetaminophen (Tylenol) 650 mg Q4H PRN GT Temp >100.5 08/08/19 10:45 09/07/19 10:44 Amantadine HCl (Symmetrel) 100 mg DAILY GT 08/09/19 09:00 09/08/19 08:59 08/13/19 08:51 Amlodipine Besylate (Norvasc) 5 mg DAILY GT 08/10/19 09:00 09/09/19 08:59 08/13/19 08:51 Ascorbic Acid (Vitamin C) 250 mg DAILY GT 08/09/19 09:00 09/08/19 08:59 08/13/19 08:50 Clonidine HCl (Catapres Tab) 0.1 mg EVERY 8 HOURS GT 08/08/19 14:00 11/06/19 13:59 08/14/19 05:55 Doxazosin Mesylate (Cardura) 2 mg QHS GT 08/08/19 21:00 09/07/19 20:59 08/13/19 20:11 Folic Acid (Folate) 1 mg DAILY GT 08/08/19 14:30 09/07/19 14:29 08/13/19 08:51 Heparin Sodium (Porcine) (Heparin 5000 units/ml) 5,000 units EVERY 12 HOURS SUBQ 08/08/19 21:00 09/22/19 20:59 08/13/19 08:56 Hydralazine HCl (Apresoline) 10 mg Q6H PRN IV SBP> 160 08/08/19 21:45 11/06/19 21:44 Iron Sucrose 100 mg/Sodium Chloride 60 ml @ 240 mls/hr BEDTIME IV 08/10/19 21:00 08/14/19 21:14 08/13/19 20:13 Lisinopril (PriniviL) 20 mg Q12HR GT 08/08/19 21:00 09/07/19 20:59 08/13/19 20:11 Lorazepam (Ativan 2mg/ml 1ml) 1 mg Q3H PRN IV For Anxiety 08/08/19 16:30 08/15/19 16:29 08/11/19 14:21 Metoprolol Tartrate (Lopressor) 25 mg Q12HR GT 08/09/19 09:00 11/07/19 08:59 08/13/19 20:11 Multivitamins (Multivitamins) 1 tab DAILY GT 08/09/19 09:00 09/08/19 08:59 08/13/19 08:50 Pantoprazole (Protonix) 40 mg EVERY 12 HOURS IVP 08/09/19 23:00 09/08/19 22:59 08/13/19 20:11 Piperacillin Sod/ Tazobactam Sod 3.375 gm/Sodium Chloride 110 ml @ 27.5 mls/hr Q8H IVPB 08/12/19 02:00 08/19/19 01:59 08/14/19 02:21 Potassium Chloride (K-Dur) 20 meq ONCE NG 08/14/19 08:15 08/14/19 09:15 Assessment/Plan Assessment/Plan anemia possible GIB sinus tachycardia respiratory failure trach chronic encephalopathy GT low K fevers PLAN gi and ID noted await CT follow up for changes vent support feeds per gi . monitor HH discuss with consultants impression, plan, and exam edited and reviewed in detail care discussed with Isaiah Villatoro MD Aug 14, 2019 08:22
--- NOTE | 2019-08-14 08:30 | NUR ---
NURSE NOTES: Notified Dr. Hurt regarding abnormal lab including Hgb and K+. Dr. Hurt ordered KCL 20meq via G-tube once. Will administer as ordered and will continue plan of care.
[2019-08-14] MEDS: Pantoprazole Inj IVP SCH ×2 (08:55→20:11)
[2019-08-14] MEDS: Heparin 5000 units/ml inj SUBQ SCH ×2 (08:57→20:11)
[2019-08-14] MEDS: Amantadine 100mg cap GT SCH (08:57)
[2019-08-14] MEDS: Lisinopril 20mg tab GT SCH ×2 (08:57→20:10)
[2019-08-14] MEDS: Ascorbic Acid 500mg tab GT SCH (08:57)
--- NOTE | 2019-08-14 09:03 | NUR ---
NURSE NOTES: Notified Dr. Fisher regarding episode fo A fib w/ RVR with HR of 127. Awaiting for the order. Will continue plan of care.
--- NOTE | 2019-08-14 09:30 | NUR ---
NURSE NOTES: Morning medications are administered. Metoprolol was held due to sinus bradycardia. Notified Dr. Fisher regarding abnormal lab including K+ and sinus bradycardia with the lowest, 48. Will closely monitor the patient. Will continue plan of care.
--- NOTE | 2019-08-14 11:00 | NUR ---
NURSE NOTES: The patient is stable at this time. No new order from Dr. Fisher. Will closely monitor the patient. Will continue plan of care.
--- NOTE | 2019-08-14 11:26 | NUR ---
*-* INSURANCE *-* UPDATED CLINICALS AND REVIEW HAVE BEEN FAXED TO: [employer] REF# [id number] NCM:NICHOLAS [phone] P: [phone] F: [phone] AFTER HOURS # [phone] Addendum: 08/15/19 at 1653 by MICHAEL FORBES CM BRANDON PEARL STATES SHE DID NOT RECEIVE
--- NOTE | 2019-08-14 11:31 | Infectious Diseases Prog Note ---
"Assessment/Plan Assessment/Plan antibiotics : zosyn A 1. pseudomonas | providencia pneumonia COVID negative x 2 2. klebsiella | pseudomonas VRE Gt site cellulitis 3. respiratory failure 4. leucocytosis improving P 1. continue zosyn 2. will follow up cultures Subjective ROS Limited/Unobtainable: Yes Allergies: Coded Allergies: No Known Allergies (Unverified , 08/07/19) Objective Vital Signs Last 24 Hour Vital Signs Date Time Temp Pulse Resp B/P (MAP) Pulse Ox O2 Delivery O2 Flow Rate FiO2 08/14/19 08:57 146/78 08/14/19 08:56 58 146/78 08/14/19 08:55 58 146/78 08/14/19 08:00 62 08/14/19 08:00 40 08/14/19 08:00 97.7 58 20 147/79 (101) 100 08/14/19 08:00 Mechanical Ventilator Mechanical Ventilator 08/14/19 07:10 62 26 40 08/14/19 05:55 148/77 08/14/19 04:00 97.5 67 20 154/92 (112) 100 08/14/19 04:00 40 08/14/19 04:00 Mechanical Ventilator Mechanical Ventilator 08/14/19 03:51 64 36 40 08/14/19 03:33 56 08/14/19 00:00 Mechanical Ventilator Mechanical Ventilator 08/14/19 00:00 40 08/14/19 00:00 98.4 52 20 108/65 (79) 100 08/13/19 23:31 49 08/13/19 23:24 57 27 40 08/13/19 21:52 137/72 08/13/19 21:00 59 25 40 08/13/19 20:11 63 136/77 08/13/19 20:11 136/77 08/13/19 20:00 40 08/13/19 20:00 98.6 63 20 136/77 (96) 100 08/13/19 20:00 Mechanical Ventilator Mechanical Ventilator 08/13/19 19:25 58 08/13/19 16:33 65 26 40 08/13/19 16:00 Mechanical Ventilator Mechanical Ventilator 08/13/19 16:00 98.1 64 20 140/75 (96) 100 08/13/19 16:00 40 08/13/19 16:00 60 08/13/19 13:04 117/59 08/13/19 12:43 64 25 100 Mechanical Ventilator 40 08/13/19 12:29 68 23 40 08/13/19 12:00 98.2 58 21 117/59 (78) 100 08/13/19 12:00 40 08/13/19 12:00 70 08/13/19 12:00 Mechanical Ventilator Mechanical Ventilator Height (Feet): 5 Height (Inches): 6.00 Weight (Pounds): 216 HEENT: status post trach Respiratory/Chest: lungs clear Cardiovascular: normal rate, regular rhythm, no gallop/murmur Abdomen: soft, non tender Extremities: no edema Microbiology Date/Time Source Procedure Growth Status 08/11/19 12:30 Sputum Gram Stain - Final Resulted 08/11/19 12:30 Sputum Culture - Preliminary Providencia Stuartii Pseudomonas Aeruginosa Gram Negative Bacillus 3 Resulted Laboratory Tests Test 08/14/19 03:28 White Blood Count 7.9 K/UL (4.8-10.8) Red Blood Count 2.38 M/UL (4.70-6.10) L Hemoglobin 8.1 G/DL (14.2-18.0) L Hematocrit 26.3 % (42.0-52.0) L Mean Corpuscular Volume 111 FL (80-99) H Mean Corpuscular Hemoglobin 34.0 PG (27.0-31.0) H Mean Corpuscular Hemoglobin Concent 30.7 G/DL (32.0-36.0) L Red Cell Distribution Width 13.5 % (11.6-14.8) Platelet Count 223 K/UL (150-450) Mean Platelet Volume 7.7 FL (6.5-10.1) Neutrophils (%) (Auto) % (45.0-75.0) Lymphocytes (%) (Auto) % (20.0-45.0) Monocytes (%) (Auto) % (1.0-10.0) Eosinophils (%) (Auto) % (0.0-3.0) Basophils (%) (Auto) % (0.0-2.0) Sodium Level 139 MMOL/L (136-145) Potassium Level 3.4 MMOL/L (3.5-5.1) L Chloride Level 102 MMOL/L (98-107) Carbon Dioxide Level 31 MMOL/L (21-32) Anion Gap 6 mmol/L (5-15) Blood Urea Nitrogen 13 mg/dL (7-18) Creatinine 1.0 MG/DL (0.55-1.30) Estimat Glomerular Filtration Rate > 60 mL/min (>60) Glucose Level 149 MG/DL (74-106) H Calcium Level 8.1 MG/DL (8.5-10.1) L Magnesium Level 2.0 MG/DL (1.8-2.4) Total Bilirubin 0.3 MG/DL (0.2-1.0) Aspartate Amino Transf (AST/SGOT) 20 U/L (15-37) Alanine Aminotransferase (ALT/SGPT) 20 U/L (12-78) Alkaline Phosphatase 88 U/L (46-116) Total Protein 6.6 G/DL (6.4-8.2) Albumin 1.6 G/DL (3.4-5.0) L Globulin 5.0 g/dL Albumin/Globulin Ratio 0.3 (1.0-2.7) L Current Medications Medications (Trade) Dose Ordered Sig/Nury Route PRN Reason Start Time Stop Time Status Last Admin Dose Admin Acetaminophen (Tylenol) 325 mg Q6H PRN RECTAL Temp >100.5 08/08/19 21:45 09/07/19 21:44 Acetaminophen (Tylenol) 650 mg Q4H PRN GT Mild Pain (Pain Scale 1-3) 08/08/19 10:45 09/07/19 10:44 Acetaminophen (Tylenol) 650 mg Q4H PRN GT Temp >100.5 08/08/19 10:45 09/07/19 10:44 Amantadine HCl (Symmetrel) 100 mg DAILY GT 08/09/19 09:00 09/08/19 08:59 08/14/19 08:57 Amlodipine Besylate (Norvasc) 5 mg DAILY GT 08/10/19 09:00 09/09/19 08:59 08/14/19 08:56 Ascorbic Acid (Vitamin C) 250 mg DAILY GT 08/09/19 09:00 09/08/19 08:59 08/14/19 08:57 Clonidine HCl (Catapres Tab) 0.1 mg EVERY 8 HOURS GT 08/08/19 14:00 11/06/19 13:59 08/14/19 05:55 Doxazosin Mesylate (Cardura) 2 mg QHS GT 08/08/19 21:00 09/07/19 20:59 08/13/19 20:11 Folic Acid (Folate) 1 mg DAILY GT 08/08/19 14:30 09/07/19 14:29 08/14/19 08:55 Heparin Sodium (Porcine) (Heparin 5000 units/ml) 5,000 units EVERY 12 HOURS SUBQ 08/08/19 21:00 09/22/19 20:59 08/13/19 08:56 Hydralazine HCl (Apresoline) 10 mg Q6H PRN IV SBP> 160 08/08/19 21:45 11/06/19 21:44 Iron Sucrose 100 mg/Sodium Chloride 60 ml @ 240 mls/hr BEDTIME IV 08/10/19 21:00 08/14/19 21:14 08/13/19 20:13 Lisinopril (PriniviL) 20 mg Q12HR GT 08/08/19 21:00 09/07/19 20:59 08/14/19 08:57 Lorazepam (Ativan 2mg/ml 1ml) 1 mg Q3H PRN IV For Anxiety 08/08/19 16:30 08/15/19 16:29 08/11/19 14:21 Metoprolol Tartrate (Lopressor) 25 mg Q12HR GT 08/09/19 09:00 11/07/19 08:59 08/13/19 20:11 Multivitamins (Multivitamins) 1 tab DAILY GT 08/09/19 09:00 09/08/19 08:59 08/14/19 08:56 Pantoprazole (Protonix) 40 mg EVERY 12 HOURS IVP 08/09/19 23:00 09/08/19 22:59 08/14/19 08:55 Piperacillin Sod/ Tazobactam Sod 3.375 gm/Sodium Chloride 110 ml @ 27.5 mls/hr Q8H IVPB 08/12/19 02:00 08/19/19 01:59 08/14/19 09:00 Jude Ochoa MD Aug 14, 2019 11:31"
[2019-08-14 12:00] VITALS: BP 131/71
--- NOTE | 2019-08-14 13:00 | NUR ---
NURSE NOTES: The patient is stable at this time. Tolerating vent setting and NG tube feeding without residual. Blood sugar of 116 noted. SB with heart rate of 50s noted. Will closely monitor the patient.
--- NOTE | 2019-08-14 13:29 | Surgery Progress Note ---
Surgery Progress Note Subjective Additional Comments afebrile HD stable g tube site healing slowly drainage decreased no n/v/f/c labs noted Objective Last 24 Hour Vital Signs Date Time Temp Pulse Resp B/P (MAP) Pulse Ox O2 Delivery O2 Flow Rate FiO2 08/14/19 12:00 40 08/14/19 12:00 99.0 58 20 131/71 (91) 100 08/14/19 12:00 Mechanical Ventilator Mechanical Ventilator 08/14/19 11:40 56 08/14/19 11:10 54 18 40 08/14/19 08:57 146/78 08/14/19 08:56 58 146/78 08/14/19 08:55 58 146/78 08/14/19 08:00 62 08/14/19 08:00 40 08/14/19 08:00 97.7 58 20 147/79 (101) 100 08/14/19 08:00 Mechanical Ventilator Mechanical Ventilator 08/14/19 07:10 62 26 40 08/14/19 05:55 148/77 08/14/19 04:00 97.5 67 20 154/92 (112) 100 08/14/19 04:00 40 08/14/19 04:00 Mechanical Ventilator Mechanical Ventilator 08/14/19 03:51 64 36 40 08/14/19 03:33 56 08/14/19 00:00 Mechanical Ventilator Mechanical Ventilator 08/14/19 00:00 40 08/14/19 00:00 98.4 52 20 108/65 (79) 100 08/13/19 23:31 49 08/13/19 23:24 57 27 40 08/13/19 21:52 137/72 08/13/19 21:00 59 25 40 08/13/19 20:11 63 136/77 08/13/19 20:11 136/77 08/13/19 20:00 40 08/13/19 20:00 98.6 63 20 136/77 (96) 100 08/13/19 20:00 Mechanical Ventilator Mechanical Ventilator 08/13/19 19:25 58 08/13/19 16:33 65 26 40 08/13/19 16:00 Mechanical Ventilator Mechanical Ventilator 08/13/19 16:00 98.1 64 20 140/75 (96) 100 08/13/19 16:00 40 08/13/19 16:00 60 I&O Intake and Output 08/13/19 08/14/19 19:00 07:00 Intake Total 745.0 ml 1045.0 ml Output Total 950 ml 700 ml Balance -205.0 ml 345.0 ml Free Water 100 ml IV Total 265.0 ml 225.0 ml Tube Feeding 480 ml 720 ml Output Urine Total 930 ml 700 ml Gastric Drainage Total 20 ml # Bowel Movements 2 1 Dressing: saturated Cardiovascular: RSR Respiratory: clear Abdomen: soft, non-tender, present bowel sounds, other, non-distended Extremities: no edema, no tenderness, no cyanosis Laboratory Tests Test 08/14/19 03:28 White Blood Count 7.9 K/UL (4.8-10.8) Red Blood Count 2.38 M/UL (4.70-6.10) L Hemoglobin 8.1 G/DL (14.2-18.0) L Hematocrit 26.3 % (42.0-52.0) L Mean Corpuscular Volume 111 FL (80-99) H Mean Corpuscular Hemoglobin 34.0 PG (27.0-31.0) H Mean Corpuscular Hemoglobin Concent 30.7 G/DL (32.0-36.0) L Red Cell Distribution Width 13.5 % (11.6-14.8) Platelet Count 223 K/UL (150-450) Mean Platelet Volume 7.7 FL (6.5-10.1) Neutrophils (%) (Auto) % (45.0-75.0) Lymphocytes (%) (Auto) % (20.0-45.0) Monocytes (%) (Auto) % (1.0-10.0) Eosinophils (%) (Auto) % (0.0-3.0) Basophils (%) (Auto) % (0.0-2.0) Sodium Level 139 MMOL/L (136-145) Potassium Level 3.4 MMOL/L (3.5-5.1) L Chloride Level 102 MMOL/L (98-107) Carbon Dioxide Level 31 MMOL/L (21-32) Anion Gap 6 mmol/L (5-15) Blood Urea Nitrogen 13 mg/dL (7-18) Creatinine 1.0 MG/DL (0.55-1.30) Estimat Glomerular Filtration Rate > 60 mL/min (>60) Glucose Level 149 MG/DL (74-106) H Calcium Level 8.1 MG/DL (8.5-10.1) L Magnesium Level 2.0 MG/DL (1.8-2.4) Total Bilirubin 0.3 MG/DL (0.2-1.0) Aspartate Amino Transf (AST/SGOT) 20 U/L (15-37) Alanine Aminotransferase (ALT/SGPT) 20 U/L (12-78) Alkaline Phosphatase 88 U/L (46-116) Total Protein 6.6 G/DL (6.4-8.2) Albumin 1.6 G/DL (3.4-5.0) L Globulin 5.0 g/dL Albumin/Globulin Ratio 0.3 (1.0-2.7) L Plan Problems: (1) Anemia (2) Unstageable decubitus ulcer Assessment & Plan: Pt presented on admission with multiple Pressure Injuries. Pt has a Tracheostomy and no areas of skin concerns noted under tracheal collar. Unstageable Sacral Pressure Injury(L)9.5cm x (W)10cm. Base of wound is 75% mixed slough and eschar,25% carolynn, Edges adherent with surrounding purple and maroon indurated borders. No odor or exudate noted. DTPI L Heel (L)3.7cm x (W)4.5cm. Base of wound is maroon and indurated with surrounding non-Blanching erythema. Callused skin periwound. Reabsorbing DTPI [place] L Foot (L)3.3cm x (W)2.5cm. Base of Pressure Injury is maroon but dry. No erythema or fluctuance periwound. DTPI Lateral L 1st metatarsal(L)1.5cm x (W)2cm. Base of wound is maroon and indurated.Callused skin periwound. DTPI Lateral R Heel (L)4.4cm x (W)6cm. Base of wound is indurated ,purple with surrounding maroon and fluctuant borders.Callusing periwound. DTPI R Hallux (L)1.8cm x (W)1.9cm. Base of wound is indurated and purple. Callusing periwound. DTPI Lateral R 1st metatarsal(L)2cm x (W)2.7cm. Base of wound is indurated and maroon. Callusing periwound. Tx.Plan: Cleanse Sacral wound with Saline. Apply TheraHoney. Apply Moisture Barrier Paste periwound. Cover with Optifoam drsg. Change every 3 days and prn. Apply Cavilon Skin Barrier to wounds L L Heel , L st metatarsal,Dorsal L Foot. Cover each Site with Optifoam drsg. Change every 7 days and prn. Apply Cavilon Skin Barrier to R Heel, R Hallux, R 1st metatarsal. Cover each site with Optifoam drsg. Change every 7 days and prn. APM/KHOA Mattress. Reposition at least every 2hours or as tolerated. Off-Load Heels with Pillows. (3) Leaking PEG tube Assessment & Plan: prior peg removed plan new placement soon will monitor site drainage noted packing placed Lung bases: Atelectasis at the lung bases. Liver: Unremarkable. No mass. Gallbladder and bile ducts: Unremarkable. No calcified stones. No ductal dilation. Pancreas: Unremarkable. No mass. No ductal dilation. Spleen: Unremarkable. No splenomegaly. Adrenals: Unremarkable. No mass. Kidneys and ureters: Nonobstructing stone in the lower pole of the right kidney. Stomach and bowel: Tract from a recent percutaneous gastrostomy tube which is healing in the subcutaneous fat. Surrounding inflammatory changes but no abscess. Severe colonic diverticulosis within the sigmoid colon with mural hypertrophy however no surrounding inflammatory changes to suggest acute diverticulitis. Underlying malignancy not excluded. No obstruction. Intraperitoneal space: Unremarkable. No free air. No significant fluid collection. Bones/joints: No acute fracture. No dislocation. Soft tissues: Fat stranding in the ventral abdomen. Vasculature: Unremarkable. No abdominal aortic aneurysm. Lymph nodes: Unremarkable. No enlarged lymph nodes. Tubes, lines and devices: Thakkar catheter within the bladder. IMPRESSION: 1. Severe colonic diverticulosis within the sigmoid colon with mural hypertrophy however no surrounding inflammatory changes to suggest acute diverticulitis. Underlying malignancy not excluded. 2. Tract from a recent percutaneous gastrostomy tube which is healing in the subcutaneous fat. Surrounding inflammatory changes but no abscess. (4) Person under investigation for COVID-19 Assessment & Plan: There is a tracheostomy. Calcified granuloma is seen in the right midlung. Granulomatous calcified nodes are seen in the left aortopulmonary window. No definite infiltrates, effusions, congestion. The heart size is upper limits normal. Impression: No definite acute abnormality Evidence of old granulomatous disease Homero Cummings Aug 14, 2019 13:29
--- NOTE | 2019-08-14 15:30 | NUR ---
NURSE NOTES: Bed bath given to the patient, tolerated well. No BM noted. Will continue plan of care.
[2019-08-14 16:00] VITALS: BP 132/76
--- NOTE | 2019-08-14 16:35 | NUR ---
CASE MANAGEMENT: REVIEW SI: ANEMIA . A-FIB . LEAKING G-TUBE T 99.0 HR 54 RR 18 BP 146/78 SAT 100% MECH VENT FIO2 40 H/H 8.1/26.3 K 3.4 IS: VENOFER IV QHS ZOSYN IV Q8HR PROTONIX IV Q12HR HEPARIN SUBQ Q12HR LOPRESSOR GT Q12HR G-TUBE REPLACEMENT PENDING NGT FEEDING STEP DOWN UNIT STATUS DCP: PATIENT IS FROM [facility]
--- NOTE | 2019-08-14 17:30 | NUR ---
NURSE NOTES: Patient is stable without acute distress or SOB, tolerating vent setting and NG tube well. We will continue plan of care.
--- NOTE | 2019-08-14 18:00 | NUR ---
NURSE NOTES: Notified Dr. Fisher regarding episode of A fib w/ RVR today and history V-tachs in the past. EKG and strip reviewed by Dr. Fisher. No new order at this time. Will continue plan of care.
--- NOTE | 2019-08-14 19:20 | NUR ---
HAND-OFF: Report given to KEHINDE Mason. Patient is stable at this time. Endorsed plan of care.
--- NOTE | 2019-08-14 19:25 | NUR ---
NURSE NOTES: Received report from Alva RN and Ellen RN, pt. in bed awake with eyes open- non-verbal- no signs or symptoms of acute cardiac or respiratory distress noted, bed alarm on, side rails up x's3 and safety brakes engaged, call light within easy reach, pt. appears to be 61 on clinical neuropsychologist. Pt. has NGT in left Nare running Osmolite 1.5 at 60cc/hr- no residual noted, Thakkar intact and draining to gravity- pt. appears to be clean and dry, Thakkar intact and draining to gravity, RAC 20G and Left wrist 20G IVs intact and patent- TKO, pt. has rt. wrist restraint- restraint removed- pulses in palpable and skin is intact- restraint reapplied, safety measures continued, will continue with plan of care.
--- NOTE | 2019-08-14 19:35 | NUR ---
NURSE NOTES: orders show restraints are D/C - appears to be accidently d/c- but was endorsed restraints were renewed at 08/13 0900- pt. does need rt. wrist restraint as he is pulling on devices.
[2019-08-14 20:00] VITALS: BP 136/68
[2019-08-14] MEDS: Doxazosin 4mg tab GT SCH (20:09)
[2019-08-14] MEDS: Iron Sucrose 100 MG in NS 55 ML IV SCH (20:11)
--- NOTE | 2019-08-14 20:12 | NUR ---
NURSE NOTES: heart rate is 59 - Lopressor not administered- as pt. has episodes of bradycardia.
--- NOTE | 2019-08-14 22:41 | General Progress Note ---
Assessment/Plan Assessment/Plan: Assessment - GT migration out of stomach - Mushroom cap in anterior abdominal wall (GT removed) - Abdominal wall induration, w/o abscess but with some purulent discharge - anemia - OB (+) stools - no GI w/u per DPOA - Dark stools on PO Iron - s/p Trach Recommendations - PPI - NGT for meds and feeds - broad spectrum abx - GT site topical abx - follow exam and labs - transfuse as needed - d/c PO Iron ----> IV Fe - laxative, PRN - Will need PEG replacement at later time, once abd wall infection improved Subjective Allergies: Coded Allergies: No Known Allergies (Unverified , 08/07/19) Subjective above noted d/w DPOA Lucille Davis at length advised re OB (+) stools She requested to hold off on GI w/u (eg colonoscopy) given overall poor health She did agree to PEG re insertion Objective Last 24 Hour Vital Signs Date Time Temp Pulse Resp B/P (MAP) Pulse Ox O2 Delivery O2 Flow Rate FiO2 08/14/19 20:20 60 30 40 08/14/19 20:11 59 136/68 08/14/19 20:10 136/68 08/14/19 20:00 98.0 59 22 136/68 (90) 100 08/14/19 20:00 40 08/14/19 20:00 67 08/14/19 20:00 Mechanical Ventilator Mechanical Ventilator 08/14/19 16:00 98.2 59 24 132/76 (94) 100 08/14/19 16:00 60 08/14/19 16:00 Mechanical Ventilator Mechanical Ventilator 08/14/19 16:00 40 08/14/19 15:10 59 24 40 08/14/19 13:42 149/81 08/14/19 12:00 40 08/14/19 12:00 99.0 58 20 131/71 (91) 100 08/14/19 12:00 Mechanical Ventilator Mechanical Ventilator 08/14/19 11:40 56 08/14/19 11:10 54 18 40 08/14/19 08:57 146/78 08/14/19 08:56 58 146/78 08/14/19 08:55 58 146/78 08/14/19 08:00 62 08/14/19 08:00 40 08/14/19 08:00 97.7 58 20 147/79 (101) 100 08/14/19 08:00 Mechanical Ventilator Mechanical Ventilator 08/14/19 07:10 62 26 40 08/14/19 05:55 148/77 08/14/19 04:00 97.5 67 20 154/92 (112) 100 08/14/19 04:00 40 08/14/19 04:00 Mechanical Ventilator Mechanical Ventilator 08/14/19 03:51 64 36 40 08/14/19 03:33 56 08/14/19 00:00 Mechanical Ventilator Mechanical Ventilator 08/14/19 00:00 40 08/14/19 00:00 98.4 52 20 108/65 (79) 100 08/13/19 23:31 49 08/13/19 23:24 57 27 40 Intake and Output 08/13/19 08/14/19 19:00 07:00 Intake Total 745.0 ml 1045.0 ml Output Total 950 ml 700 ml Balance -205.0 ml 345.0 ml Free Water 100 ml IV Total 265.0 ml 225.0 ml Tube Feeding 480 ml 720 ml Output Urine Total 930 ml 700 ml Gastric Drainage Total 20 ml # Bowel Movements 2 1 Laboratory Tests 08/14/19 03:28: White Blood Count 7.9, Red Blood Count 2.38L, Hemoglobin 8.1L, Hematocrit 26.3L , Mean Corpuscular Volume 111H, Mean Corpuscular Hemoglobin 34.0H, Mean Corpuscular Hemoglobin Concent 30.7L, Red Cell Distribution Width 13.5, Platelet Count 223, Mean Platelet Volume 7.7, Neutrophils (%) (Auto) , Lymphocytes (%) (Auto) , Monocytes (%) (Auto) , Eosinophils (%) (Auto) , Basophils (%) (Auto) , Sodium Level 139, Potassium Level 3.4L, Chloride Level 102, Carbon Dioxide Level 31, Anion Gap 6, Blood Urea Nitrogen 13, Creatinine 1.0, Estimat Glomerular Filtration Rate > 60, Glucose Level 149H, Calcium Level 8.1L, Magnesium Level 2.0, Total Bilirubin 0.3, Aspartate Amino Transf (AST/SGOT ) 20, Alanine Aminotransferase (ALT/SGPT) 20, Alkaline Phosphatase 88, Total Protein 6.6, Albumin 1.6L, Globulin 5.0, Albumin/Globulin Ratio 0.3L Height (Feet): 5 Height (Inches): 6.00 Weight (Pounds): 216 Objective Obese AA Man NCAT (+) Trach coarse BS RR Abd obese, some distention, GT site closed, still with induration around site, ( +) some purulent d/c with massaging the skin trace edema non interactive Rubia Hawk MD Aug 14, 2019 22:40
[2019-08-15] VITALS (7 sets, daily range): BP systolic 113–152; BP diastolic 58–95
[2019-08-15] MEDS: Piperacillin/Tazobactam 3.375 GM in NS 110 ML IVPB SCH ×3 (01:00→18:00)
--- NOTE | 2019-08-15 02:45 | Progress Note ---
DATE: 08/14/2019 CARDIOLOGY PROGRESS NOTE SUBJECTIVE: The patient continues to have signs of ongoing infection. Continues to have purulent drainage from G-tube site. Blood pressure parameters are stable, however, he has had bradycardic episodes as well as episodes of paroxysmal atrial fibrillation and aberrancy. OBJECTIVE: LUNGS: Bilateral breath sounds. No rhonchi or wheezes. CARDIAC: Regular rhythm and rate. Normal S1, S2. ABDOMEN: Soft. G-tube site has dressing. Previously noted to have purulence per nursing. EXTREMITIES: No edema. LABORATORY DATA: White count 7.9, hemoglobin 8.1. Sodium 139, potassium 3.4, magnesium 2, BUN 13, creatinine 1. Albumin 1.6. Pro-natriuretic peptide yesterday was 586. IMPRESSION: 1. Polymicrobial pneumonia. 2. G-tube site cellulitis, again polymicrobial. 3. Respiratory failure with trach. 4. Sinus node disease with asymptomatic bradycardia. 5. Paroxysmal supraventricular and atrial tachyarrhythmias. 6. Hypokalemia. PLAN: 1. Antimicrobials. 2. Wound care. 3. Additional potassium. 4. Continue cardiac monitoring. 5. Discontinue clonidine in view of bradyarrhythmias. 6. Continue beta-albaro for suppression of supraventricular arrhythmias and titrate. Augustine Fisher M.D. DR: SANTI JOB#: [id number] CC:
[2019-08-15 04:43] LABS: BASOPHILS % (AUTO) 0.5 % (0.0-2.0); EOSINOPHILS % (AUTO) 1.6 % (0.0-3.0); HEMOGLOBIN 8.4 G/DL (14.2-18.0); LYMPHOCYTES % (AUTO) 9.1 % (20.0-45.0); MEAN CORPUSCULAR VOLUME 110 FL (80-99); MONOCYTES % (AUTO) 7.4 % (1.0-10.0); NEUTROPHILS % (AUTO) 81.4 % (45.0-75.0); PLATELET COUNT 242 K/UL (150-450); RED BLOOD COUNT 2.47 M/UL (4.70-6.10); RED CELL DISTRIBUTION WIDTH 13.5 % (11.6-14.8); WHITE BLOOD COUNT 9.4 K/UL (4.8-10.8)
[2019-08-15 05:36] LABS: ANION GAP 7 mmol/L (5-15); BLOOD UREA NITROGEN 13 mg/dL (7-18); CALCIUM 7.7 MG/DL (8.5-10.1); CARBON DIOXIDE 30 MMOL/L (21-32); CHLORIDE 101 MMOL/L (98-107); POTASSIUM 3.2 MMOL/L (3.5-5.1); SODIUM 138 MMOL/L (136-145)
--- NOTE | 2019-08-15 07:20 | NUR ---
NURSE NOTES: Received report from Andria William RN. Patient is awake, nonverbal, able to track with eyes. SR on child monitor, HR 76. Trach to vent with settings of AC 14, TV 450, FiO2 35%, PEEP 5, no s/s of respiratory distress noted. Left nare NGT in place, feeding on hold until 10:00 AM. G-tube site noted with clean and dry dressing in place. Right AC 20g and left wrist 22g saline locks, asymptomatic. Right soft wrist restraint in place, skin intact, peripheral pulses present, no redness or edema noted. Educated patient on removal criteria but unable to comprehend at this time. Thakkar catheter patent and draining well. Bed locked in lowest position with side rails up x 3. All needs attended to. Will continue to monitor.
--- NOTE | 2019-08-15 07:20 | NUR ---
NURSE NOTES: Received report from Andria William RN. Patient is alert and oriented x 4. ST on diagnostic cardiac sonographer, HR 100s. Receiving O2 via nasal cannula @ 2L/min, no s/s of respiratory distress noted. Left hand 22g IV site infusing heparin @ 18 units/kg/hr, no s/s of bleeding noted. Right forearm 20g saline lock patent and asymptomatic. Bed locked in lowest position with side rails up x 2. All needs attended to. Call light within reach. Will continue to monitor. Addendum: 08/15/19 at 1123 by Collette Carrington RN wrong patient
--- NOTE | 2019-08-15 07:28 | NUR ---
HAND-OFF: Report given to KEHINDE Murdock, pt. remains stable and no signs of distress noted- nurse aware to f/u on abnormal am labs.
[2019-08-15] MEDS: Amantadine 100mg cap GT SCH (08:56)
[2019-08-15] MEDS: Ascorbic Acid 500mg tab GT SCH (08:56)
[2019-08-15] MEDS: Pantoprazole Inj IVP SCH ×2 (08:56→20:34)
[2019-08-15] MEDS: Lisinopril 20mg tab GT SCH ×2 (08:57→20:34)
[2019-08-15] MEDS: Heparin 5000 units/ml inj SUBQ SCH ×2 (08:59→20:35)
--- NOTE | 2019-08-15 09:02 | Pulmonology Progress Note ---
Subjective ROS Limited/Unobtainable: Yes Constitutional: Denies: fever Allergies: Coded Allergies: No Known Allergies (Unverified , 08/07/19) Subjective remains ill pus from gt site beetter elevated BP low K replaced low HH Objective Last 24 Hour Vital Signs Date Time Temp Pulse Resp B/P (MAP) Pulse Ox O2 Delivery O2 Flow Rate FiO2 08/15/19 08:00 98.6 78 18 140/95 (110) 100 08/15/19 04:09 66 149/89 (109) 08/15/19 04:00 98.1 62 20 152/93 (112) 100 08/15/19 04:00 Mechanical Ventilator Mechanical Ventilator 08/15/19 04:00 40 08/15/19 03:49 75 08/15/19 02:59 65 29 40 08/15/19 00:00 40 08/15/19 00:00 61 08/15/19 00:00 97.9 58 22 113/58 (76) 100 08/15/19 00:00 Mechanical Ventilator Mechanical Ventilator 08/14/19 23:43 61 23 40 08/14/19 20:20 60 30 40 08/14/19 20:11 59 136/68 08/14/19 20:10 136/68 08/14/19 20:00 98.0 59 22 136/68 (90) 100 08/14/19 20:00 40 08/14/19 20:00 67 08/14/19 20:00 Mechanical Ventilator Mechanical Ventilator 08/14/19 16:00 98.2 59 24 132/76 (94) 100 08/14/19 16:00 60 08/14/19 16:00 Mechanical Ventilator Mechanical Ventilator 08/14/19 16:00 40 08/14/19 15:10 59 24 40 08/14/19 13:42 149/81 08/14/19 12:00 40 08/14/19 12:00 99.0 58 20 131/71 (91) 100 08/14/19 12:00 Mechanical Ventilator Mechanical Ventilator 08/14/19 11:40 56 08/14/19 11:10 54 18 40 Intake and Output 08/14/19 08/15/19 19:00 07:00 Intake Total 710.0 ml 880.0 ml Output Total 700 ml 825 ml Balance 10.0 ml 55.0 ml Free Water 50 ml IV Total 110.0 ml 170.0 ml Tube Feeding 600 ml 660 ml Output Urine Total 700 ml 825 ml # Bowel Movements 1 Objective WDWN trach reduced breath sounds bilaterally without rhonchi or wheeze [id number] without MRG NABS nontender GT- noted drainage no CCE reduced LOC Laboratory Tests 08/15/19 03:00: White Blood Count 9.4, Red Blood Count 2.47L, Hemoglobin 8.4L, Hematocrit 27.0L , Mean Corpuscular Volume 110H, Mean Corpuscular Hemoglobin 34.0H, Mean Corpuscular Hemoglobin Concent 31.1L, Red Cell Distribution Width 13.5, Platelet Count 242, Mean Platelet Volume 8.0, Neutrophils (%) (Auto) 81.4H, Lymphocytes (%) (Auto) 9.1L, Monocytes (%) (Auto) 7.4, Eosinophils (%) (Auto) 1.6, Basophils (%) (Auto) 0.5, Sodium Level 138, Potassium Level 3.2L, Chloride Level 101, Carbon Dioxide Level 30, Anion Gap 7, Blood Urea Nitrogen 13, Creatinine 1.0, Estimat Glomerular Filtration Rate > 60, Glucose Level 149H, Calcium Level 7.7L, Pro-B-Type Natriuretic Peptide 570H Current Medications Medications (Trade) Dose Ordered Sig/Nury Route PRN Reason Start Time Stop Time Status Last Admin Dose Admin Acetaminophen (Tylenol) 325 mg Q6H PRN RECTAL Temp >100.5 08/08/19 21:45 09/07/19 21:44 Acetaminophen (Tylenol) 650 mg Q4H PRN GT Mild Pain (Pain Scale 1-3) 08/08/19 10:45 09/07/19 10:44 Acetaminophen (Tylenol) 650 mg Q4H PRN GT Temp >100.5 08/08/19 10:45 09/07/19 10:44 Amantadine HCl (Symmetrel) 100 mg DAILY GT 08/09/19 09:00 09/08/19 08:59 08/14/19 08:57 Amlodipine Besylate (Norvasc) 5 mg DAILY GT 08/10/19 09:00 09/09/19 08:59 08/14/19 08:56 Ascorbic Acid (Vitamin C) 250 mg DAILY GT 08/09/19 09:00 09/08/19 08:59 08/14/19 08:57 Doxazosin Mesylate (Cardura) 2 mg QHS GT 08/08/19 21:00 09/07/19 20:59 08/14/19 20:09 Folic Acid (Folate) 1 mg DAILY GT 08/08/19 14:30 09/07/19 14:29 08/14/19 08:55 Heparin Sodium (Porcine) (Heparin 5000 units/ml) 5,000 units EVERY 12 HOURS SUBQ 08/08/19 21:00 09/22/19 20:59 08/13/19 08:56 Hydralazine HCl (Apresoline) 10 mg Q6H PRN IV SBP> 160 08/08/19 21:45 11/06/19 21:44 Lisinopril (PriniviL) 20 mg Q12HR GT 08/08/19 21:00 09/07/19 20:59 08/14/19 20:10 Lorazepam (Ativan 2mg/ml 1ml) 1 mg Q3H PRN IV For Anxiety 08/08/19 16:30 08/15/19 16:29 08/11/19 14:21 Metoprolol Tartrate (Lopressor) 25 mg Q12HR GT 08/09/19 09:00 11/07/19 08:59 08/13/19 20:11 Multivitamins (Multivitamins) 1 tab DAILY GT 08/09/19 09:00 09/08/19 08:59 08/14/19 08:56 Pantoprazole (Protonix) 40 mg EVERY 12 HOURS IVP 08/09/19 23:00 09/08/19 22:59 08/14/19 20:11 Piperacillin Sod/ Tazobactam Sod 3.375 gm/Sodium Chloride 110 ml @ 27.5 mls/hr Q8H IVPB 08/12/19 02:00 08/19/19 01:59 08/15/19 01:00 Assessment/Plan Assessment/Plan anemia possible GIB sinus tachycardia respiratory failure trach chronic encephalopathy GT low K fevers PLAN gi and ID noted no abcess on CT follow up for changes vent support feeds per gi . monitor HH control blood pressure discuss with consultants as to disposition impression, plan, and exam edited and reviewed in detail care discussed with Isaiah Villatoro MD Aug 15, 2019 09:02
--- NOTE | 2019-08-15 11:11 | Infectious Diseases Prog Note ---
"Assessment/Plan Assessment/Plan antibiotics : zosyn A 1. pseudomonas | providencia pneumonia COVID negative x 2 2. klebsiella | pseudomonas | VRE Gt site cellulitis 3. respiratory failure 4. leucocytosis improving P 1. continue zosyn 1 more day 2. will follow up cultures Subjective ROS Limited/Unobtainable: Yes Allergies: Coded Allergies: No Known Allergies (Unverified , 08/07/19) Objective Vital Signs Last 24 Hour Vital Signs Date Time Temp Pulse Resp B/P (MAP) Pulse Ox O2 Delivery O2 Flow Rate FiO2 08/15/19 08:57 78 140/95 08/15/19 08:57 78 140/95 08/15/19 08:57 140/95 08/15/19 08:00 98.6 78 18 140/95 (110) 100 08/15/19 08:00 40 08/15/19 07:53 89 08/15/19 07:50 79 26 40 08/15/19 04:09 66 149/89 (109) 08/15/19 04:00 98.1 62 20 152/93 (112) 100 08/15/19 04:00 Mechanical Ventilator Mechanical Ventilator 08/15/19 04:00 40 08/15/19 03:49 75 08/15/19 02:59 65 29 40 08/15/19 00:00 40 08/15/19 00:00 61 08/15/19 00:00 97.9 58 22 113/58 (76) 100 08/15/19 00:00 Mechanical Ventilator Mechanical Ventilator 08/14/19 23:43 61 23 40 08/14/19 20:20 60 30 40 08/14/19 20:11 59 136/68 08/14/19 20:10 136/68 08/14/19 20:00 98.0 59 22 136/68 (90) 100 08/14/19 20:00 40 08/14/19 20:00 67 08/14/19 20:00 Mechanical Ventilator Mechanical Ventilator 08/14/19 16:00 98.2 59 24 132/76 (94) 100 08/14/19 16:00 60 08/14/19 16:00 Mechanical Ventilator Mechanical Ventilator 08/14/19 16:00 40 08/14/19 15:10 59 24 40 08/14/19 13:42 149/81 6/15/20 12:00 40 08/14/19 12:00 99.0 58 20 131/71 (91) 100 08/14/19 12:00 Mechanical Ventilator Mechanical Ventilator 08/14/19 11:40 56 08/14/19 11:10 54 18 40 Height (Feet): 5 Height (Inches): 6.00 Weight (Pounds): 216 HEENT: status post trach Respiratory/Chest: lungs clear Cardiovascular: normal rate, regular rhythm, no gallop/murmur Abdomen: soft, non tender Extremities: no edema Laboratory Tests Test 08/15/19 03:00 White Blood Count 9.4 K/UL (4.8-10.8) Red Blood Count 2.47 M/UL (4.70-6.10) L Hemoglobin 8.4 G/DL (14.2-18.0) L Hematocrit 27.0 % (42.0-52.0) L Mean Corpuscular Volume 110 FL (80-99) H Mean Corpuscular Hemoglobin 34.0 PG (27.0-31.0) H Mean Corpuscular Hemoglobin Concent 31.1 G/DL (32.0-36.0) L Red Cell Distribution Width 13.5 % (11.6-14.8) Platelet Count 242 K/UL (150-450) Mean Platelet Volume 8.0 FL (6.5-10.1) Neutrophils (%) (Auto) 81.4 % (45.0-75.0) H Lymphocytes (%) (Auto) 9.1 % (20.0-45.0) L Monocytes (%) (Auto) 7.4 % (1.0-10.0) Eosinophils (%) (Auto) 1.6 % (0.0-3.0) Basophils (%) (Auto) 0.5 % (0.0-2.0) Sodium Level 138 MMOL/L (136-145) Potassium Level 3.2 MMOL/L (3.5-5.1) L Chloride Level 101 MMOL/L (98-107) Carbon Dioxide Level 30 MMOL/L (21-32) Anion Gap 7 mmol/L (5-15) Blood Urea Nitrogen 13 mg/dL (7-18) Creatinine 1.0 MG/DL (0.55-1.30) Estimat Glomerular Filtration Rate > 60 mL/min (>60) Glucose Level 149 MG/DL (74-106) H Calcium Level 7.7 MG/DL (8.5-10.1) L Pro-B-Type Natriuretic Peptide 570 pg/mL (0-125) H Current Medications Medications (Trade) Dose Ordered Sig/Nury Route PRN Reason Start Time Stop Time Status Last Admin Dose Admin Acetaminophen (Tylenol) 325 mg Q6H PRN RECTAL Temp >100.5 08/08/19 21:45 09/07/19 21:44 Acetaminophen (Tylenol) 650 mg Q4H PRN GT Mild Pain (Pain Scale 1-3) 08/08/19 10:45 09/07/19 10:44 Acetaminophen (Tylenol) 650 mg Q4H PRN GT Temp >100.5 08/08/19 10:45 09/07/19 10:44 Amantadine HCl (Symmetrel) 100 mg DAILY GT 08/09/19 09:00 09/08/19 08:59 08/15/19 08:56 Amlodipine Besylate (Norvasc) 5 mg DAILY GT 08/10/19 09:00 09/09/19 08:59 08/15/19 08:57 Ascorbic Acid (Vitamin C) 250 mg DAILY GT 08/09/19 09:00 09/08/19 08:59 08/15/19 08:56 Doxazosin Mesylate (Cardura) 2 mg QHS GT 08/08/19 21:00 09/07/19 20:59 08/14/19 20:09 Folic Acid (Folate) 1 mg DAILY GT 08/08/19 14:30 09/07/19 14:29 08/15/19 08:56 Heparin Sodium (Porcine) (Heparin 5000 units/ml) 5,000 units EVERY 12 HOURS SUBQ 08/08/19 21:00 09/22/19 20:59 08/15/19 08:59 Hydralazine HCl (Apresoline) 10 mg Q6H PRN IV SBP> 160 08/08/19 21:45 11/06/19 21:44 Lisinopril (PriniviL) 20 mg Q12HR GT 08/08/19 21:00 09/07/19 20:59 08/15/19 08:57 Lorazepam (Ativan 2mg/ml 1ml) 1 mg Q3H PRN IV For Anxiety 08/08/19 16:30 08/15/19 16:29 08/11/19 14:21 Metoprolol Tartrate (Lopressor) 25 mg Q12HR GT 08/09/19 09:00 11/07/19 08:59 08/15/19 08:57 Multivitamins (Multivitamins) 1 tab DAILY GT 08/09/19 09:00 09/08/19 08:59 08/15/19 08:57 Pantoprazole (Protonix) 40 mg EVERY 12 HOURS IVP 08/09/19 23:00 09/08/19 22:59 08/15/19 08:56 Piperacillin Sod/ Tazobactam Sod 3.375 gm/Sodium Chloride 110 ml @ 27.5 mls/hr Q8H IVPB 08/12/19 02:00 08/19/19 01:59 08/15/19 10:02 Jude Ochoa MD Aug 15, 2019 11:11"
--- NOTE | 2019-08-15 12:41 | NUR ---
CASE MANAGEMENT: REVIEW SI: ANEMIA . A-FIB . LEAKING G-TUBE T 98.2 HR 69 RR 27 BP 143/78 SAT 100% MECH VENT FIO2 40 H/H 8.4/27.0 K 3.2 CALCIUM 7.7 IS: ZOSYN IV Q8HR PROTONIX IV Q12HR HEPARIN SUBQ Q12HR LOPRESSOR GT Q12HR G-TUBE REPLACEMENT PENDING NGT FEEDING STEP DOWN UNIT STATUS DCP: PATIENT IS FROM [facility]
--- NOTE | 2019-08-15 15:06 | Surgery Progress Note ---
Surgery Progress Note Subjective Additional Comments No acute events. Afebrile, hemodynamic stable, labs normal. Minimal drainage from prior G-tube site discussed with nursing about packing and dressings will continue current care plan plan for PEG tube once improved Objective Last 24 Hour Vital Signs Date Time Temp Pulse Resp B/P (MAP) Pulse Ox O2 Delivery O2 Flow Rate FiO2 08/15/19 12:00 40 08/15/19 12:00 98.2 69 27 143/78 (99) 100 08/15/19 12:00 Mechanical Ventilator Mechanical Ventilator 08/15/19 11:37 68 08/15/19 11:20 64 22 35 08/15/19 08:57 78 140/95 08/15/19 08:57 78 140/95 08/15/19 08:57 140/95 08/15/19 08:00 98.6 78 18 140/95 (110) 100 08/15/19 08:00 40 08/15/19 08:00 Mechanical Ventilator Mechanical Ventilator 08/15/19 07:53 89 08/15/19 07:50 79 26 40 08/15/19 04:09 66 149/89 (109) 08/15/19 04:00 98.1 62 20 152/93 (112) 100 08/15/19 04:00 Mechanical Ventilator Mechanical Ventilator 08/15/19 04:00 40 08/15/19 03:49 75 08/15/19 02:59 65 29 40 08/15/19 00:00 40 08/15/19 00:00 61 08/15/19 00:00 97.9 58 22 113/58 (76) 100 08/15/19 00:00 Mechanical Ventilator Mechanical Ventilator 08/14/19 23:43 61 23 40 08/14/19 20:20 60 30 40 08/14/19 20:11 59 136/68 08/14/19 20:10 136/68 08/14/19 20:00 98.0 59 22 136/68 (90) 100 08/14/19 20:00 40 08/14/19 20:00 67 08/14/19 20:00 Mechanical Ventilator Mechanical Ventilator 08/14/19 16:00 98.2 59 24 132/76 (94) 100 08/14/19 16:00 60 08/14/19 16:00 Mechanical Ventilator Mechanical Ventilator 08/14/19 16:00 40 08/14/19 15:10 59 24 40 I&O Intake and Output 08/14/19 08/15/19 19:00 07:00 Intake Total 710.0 ml 880.0 ml Output Total 700 ml 825 ml Balance 10.0 ml 55.0 ml Free Water 50 ml IV Total 110.0 ml 170.0 ml Tube Feeding 600 ml 660 ml Output Urine Total 700 ml 825 ml # Bowel Movements 1 Dressing: saturated Wound: clean Cardiovascular: RSR Respiratory: clear Abdomen: soft, non-tender, present bowel sounds Extremities: edema, no tenderness, no cyanosis Laboratory Tests Test 08/15/19 03:00 White Blood Count 9.4 K/UL (4.8-10.8) Red Blood Count 2.47 M/UL (4.70-6.10) L Hemoglobin 8.4 G/DL (14.2-18.0) L Hematocrit 27.0 % (42.0-52.0) L Mean Corpuscular Volume 110 FL (80-99) H Mean Corpuscular Hemoglobin 34.0 PG (27.0-31.0) H Mean Corpuscular Hemoglobin Concent 31.1 G/DL (32.0-36.0) L Red Cell Distribution Width 13.5 % (11.6-14.8) Platelet Count 242 K/UL (150-450) Mean Platelet Volume 8.0 FL (6.5-10.1) Neutrophils (%) (Auto) 81.4 % (45.0-75.0) H Lymphocytes (%) (Auto) 9.1 % (20.0-45.0) L Monocytes (%) (Auto) 7.4 % (1.0-10.0) Eosinophils (%) (Auto) 1.6 % (0.0-3.0) Basophils (%) (Auto) 0.5 % (0.0-2.0) Sodium Level 138 MMOL/L (136-145) Potassium Level 3.2 MMOL/L (3.5-5.1) L Chloride Level 101 MMOL/L (98-107) Carbon Dioxide Level 30 MMOL/L (21-32) Anion Gap 7 mmol/L (5-15) Blood Urea Nitrogen 13 mg/dL (7-18) Creatinine 1.0 MG/DL (0.55-1.30) Estimat Glomerular Filtration Rate > 60 mL/min (>60) Glucose Level 149 MG/DL (74-106) H Calcium Level 7.7 MG/DL (8.5-10.1) L Pro-B-Type Natriuretic Peptide 570 pg/mL (0-125) H Plan Problems: (1) Anemia (2) Unstageable decubitus ulcer Assessment & Plan: Pt presented on admission with multiple Pressure Injuries. Pt has a Tracheostomy and no areas of skin concerns noted under tracheal collar. Unstageable Sacral Pressure Injury(L)9.5cm x (W)10cm. Base of wound is 75% mixed slough and eschar,25% carolynn, Edges adherent with surrounding purple and maroon indurated borders. No odor or exudate noted. DTPI L Heel (L)3.7cm x (W)4.5cm. Base of wound is maroon and indurated with surrounding non-Blanching erythema. Callused skin periwound. Reabsorbing DTPI [place] L Foot (L)3.3cm x (W)2.5cm. Base of Pressure Injury is maroon but dry. No erythema or fluctuance periwound. DTPI Lateral L 1st metatarsal(L)1.5cm x (W)2cm. Base of wound is maroon and indurated.Callused skin periwound. DTPI Lateral R Heel (L)4.4cm x (W)6cm. Base of wound is indurated ,purple with surrounding maroon and fluctuant borders.Callusing periwound. DTPI R Hallux (L)1.8cm x (W)1.9cm. Base of wound is indurated and purple. Callusing periwound. DTPI Lateral R 1st metatarsal(L)2cm x (W)2.7cm. Base of wound is indurated and maroon. Callusing periwound. Tx.Plan: Cleanse Sacral wound with Saline. Apply TheraHoney. Apply Moisture Barrier Paste periwound. Cover with Optifoam drsg. Change every 3 days and prn. Apply Cavilon Skin Barrier to wounds L L Heel , L st metatarsal,Dorsal L Foot. Cover each Site with Optifoam drsg. Change every 7 days and prn. Apply Cavilon Skin Barrier to R Heel, R Hallux, R 1st metatarsal. Cover each site with Optifoam drsg. Change every 7 days and prn. APM/KHOA Mattress. Reposition at least every 2hours or as tolerated. Off-Load Heels with Pillows. (3) Leaking PEG tube Assessment & Plan: prior peg removed plan new placement soon will monitor site drainage noted packing placed Minimal drainage from prior G-tube site discussed with nursing about packing and dressings will continue current care plan plan for PEG tube once improved Lung bases: Atelectasis at the lung bases. Liver: Unremarkable. No mass. Gallbladder and bile ducts: Unremarkable. No calcified stones. No ductal dilation. Pancreas: Unremarkable. No mass. No ductal dilation. Spleen: Unremarkable. No splenomegaly. Adrenals: Unremarkable. No mass. Kidneys and ureters: Nonobstructing stone in the lower pole of the right kidney. Stomach and bowel: Tract from a recent percutaneous gastrostomy tube which is healing in the subcutaneous fat. Surrounding inflammatory changes but no abscess. Severe colonic diverticulosis within the sigmoid colon with mural hypertrophy however no surrounding inflammatory changes to suggest acute diverticulitis. Underlying malignancy not excluded. No obstruction. Intraperitoneal space: Unremarkable. No free air. No significant fluid collection. Bones/joints: No acute fracture. No dislocation. Soft tissues: Fat stranding in the ventral abdomen. Vasculature: Unremarkable. No abdominal aortic aneurysm. Lymph nodes: Unremarkable. No enlarged lymph nodes. Tubes, lines and devices: Thakkar catheter within the bladder. IMPRESSION: 1. Severe colonic diverticulosis within the sigmoid colon with mural hypertrophy however no surrounding inflammatory changes to suggest acute diverticulitis. Underlying malignancy not excluded. 2. Tract from a recent percutaneous gastrostomy tube which is healing in the subcutaneous fat. Surrounding inflammatory changes but no abscess. (4) Person under investigation for COVID-19 Assessment & Plan: There is a tracheostomy. Calcified granuloma is seen in the right midlung. Granulomatous calcified nodes are seen in the left aortopulmonary window. No definite infiltrates, effusions, congestion. The heart size is upper limits normal. Impression: No definite acute abnormality Evidence of old granulomatous disease Homero Cummings Aug 15, 2019 15:05
--- NOTE | 2019-08-15 16:50 | NUR ---
*-* INSURANCE *-* UPDATED CLINICALS AND REVIEW [facility] BE[facility] [id number] COCOM:NICHOLAS [phone] P: [phone] F: [phone] AFTER HOURS # [phone]
--- NOTE | 2019-08-15 18:58 | NUR ---
NURSE NOTES: Received report from KEHINDE Murdock, pt. in bed awake with eyes open- non-verbal- no signs or symptoms of acute cardiac or respiratory distress noted, bed alarm on, side rails up x's3 and safety brakes locked in position, call light within easy reach, pt. appears to be 74 on forms designer- SR. Pt. has NGT in left Nare running Osmolite 1.5 at 60cc/hr- no residual noted, Thakkar intact and draining to gravity- pt. appears to be clean and dry, Thakkar intact and draining to gravity, RAC 20G and Left wrist 20G IVs intact and patent- TKO, pt. appears clean and dry, pt. has rt. wrist restraint- restraint removed- pulse is palpable and skin is intact- restraint reapplied, safety measures continued, will continue with plan of care.
--- NOTE | 2019-08-15 19:02 | NUR ---
HAND-OFF: Report given to Andria William RN. Patient in stable condition.
--- NOTE | 2019-08-15 19:12 | NUR ---
NURSE NOTES: Called DR. Fisher regarding pt. potassium 3.2- DR. Hugo answering - ordered K-Dur 60meq via G tube once- orders carried out. Addendum: 08/15/19 at 1916 by ROWAN SOLARES RN RN correction to message above- via NGT not G tube.
[2019-08-15] MEDS: Doxazosin 4mg tab GT SCH (20:34)
--- NOTE | 2019-08-15 22:35 | General Progress Note ---
Assessment/Plan Assessment/Plan: Assessment - GT migration out of stomach - Mushroom cap in anterior abdominal wall (GT removed) - Abdominal wall induration - improving - anemia - OB (+) stools - no GI w/u per DPOA - Dark stools on PO Iron - s/p Trach Recommendations - PPI - NGT for meds and feeds - broad spectrum abx - follow exam and labs - transfuse as needed - d/c PO Iron ----> IV Fe - laxative, PRN - Will need PEG replacement- plan to do by end of week, likely Wednesday Subjective Allergies: Coded Allergies: No Known Allergies (Unverified , 08/07/19) Subjective above noted NAD no events overnight Objective Last 24 Hour Vital Signs Date Time Temp Pulse Resp B/P (MAP) Pulse Ox O2 Delivery O2 Flow Rate FiO2 08/15/19 20:35 79 131/78 08/15/19 20:34 131/78 08/15/19 20:00 Mechanical Ventilator Mechanical Ventilator 08/15/19 20:00 40 08/15/19 20:00 98.1 68 20 131/78 (95) 100 08/15/19 19:22 79 08/15/19 19:21 76 26 35 08/15/19 16:00 98.6 78 23 139/69 (92) 100 08/15/19 16:00 Mechanical Ventilator Mechanical Ventilator 08/15/19 16:00 40 08/15/19 15:30 79 25 35 08/15/19 15:24 78 08/15/19 12:00 40 08/15/19 12:00 98.2 69 27 143/78 (99) 100 08/15/19 12:00 Mechanical Ventilator Mechanical Ventilator 08/15/19 11:37 68 08/15/19 11:20 64 22 35 08/15/19 08:57 78 140/95 08/15/19 08:57 78 140/95 08/15/19 08:57 140/95 08/15/19 08:00 98.6 78 18 140/95 (110) 100 08/15/19 08:00 40 08/15/19 08:00 Mechanical Ventilator Mechanical Ventilator 08/15/19 07:53 89 08/15/19 07:50 79 26 40 08/15/19 04:09 66 149/89 (109) 08/15/19 04:00 98.1 62 20 152/93 (112) 100 08/15/19 04:00 Mechanical Ventilator Mechanical Ventilator 08/15/19 04:00 40 08/15/19 03:49 75 08/15/19 02:59 65 29 40 08/15/19 00:00 40 08/15/19 00:00 61 08/15/19 00:00 97.9 58 22 113/58 (76) 100 08/15/19 00:00 Mechanical Ventilator Mechanical Ventilator 08/14/19 23:43 61 23 40 Intake and Output 08/14/19 08/15/19 19:00 07:00 Intake Total 710.0 ml 880.0 ml Output Total 700 ml 825 ml Balance 10.0 ml 55.0 ml Free Water 50 ml IV Total 110.0 ml 170.0 ml Tube Feeding 600 ml 660 ml Output Urine Total 700 ml 825 ml # Bowel Movements 1 Laboratory Tests 08/15/19 03:00: White Blood Count 9.4, Red Blood Count 2.47L, Hemoglobin 8.4L, Hematocrit 27.0L , Mean Corpuscular Volume 110H, Mean Corpuscular Hemoglobin 34.0H, Mean Corpuscular Hemoglobin Concent 31.1L, Red Cell Distribution Width 13.5, Platelet Count 242, Mean Platelet Volume 8.0, Neutrophils (%) (Auto) 81.4H, Lymphocytes (%) (Auto) 9.1L, Monocytes (%) (Auto) 7.4, Eosinophils (%) (Auto) 1.6, Basophils (%) (Auto) 0.5, Sodium Level 138, Potassium Level 3.2L, Chloride Level 101, Carbon Dioxide Level 30, Anion Gap 7, Blood Urea Nitrogen 13, Creatinine 1.0, Estimat Glomerular Filtration Rate > 60, Glucose Level 149H, Calcium Level 7.7L, Pro-B-Type Natriuretic Peptide 570H Height (Feet): 5 Height (Inches): 6.00 Weight (Pounds): 216 Objective Obese AA Man NCAT (+) Trach coarse BS RR Abd obese, some distention, GT site closed, still with induration around site, drainage improved trace edema non interactive Rubia Hawk MD Aug 15, 2019 22:35
[2019-08-16] VITALS: BP 146/75
[2019-08-16] MEDS: Piperacillin/Tazobactam 3.375 GM in NS 110 ML IVPB SCH ×3 (01:26→17:14)
[2019-08-16 04:00] VITALS: BP 146/83
--- NOTE | 2019-08-16 05:00 | Progress Note ---
DATE: 08/15/2019 CARDIOLOGY PROGRESS NOTE SUBJECTIVE: Continues to have drainage of purulent material from G-tube site. Blood pressure parameters are overall controlled. Monitored rhythm sinus. No sustained ectopy. PHYSICAL EXAMINATION: VITAL SIGNS: Blood pressure 113/58 to 152/93, heart rate 58 to 78, respiratory rate 18 to 20, afebrile. HEENT: Thin secretions from trach. LUNGS: Bilateral rhonchi. CARDIAC: Regular rhythm and rate. ABDOMEN: Soft. G-tube intact. EXTREMITIES: Trace edema. White count 9.4, hemoglobin 8.4. Potassium 3.2, BUN 13, creatinine 1. Pro natriuretic peptide 570. IMPRESSION: 1. Hypokalemia. 2. Respiratory failure. 3. Paroxysmal atrial and supraventricular tachyarrhythmias. 4. Sinus node disease with episodes of asymptomatic bradycardia. 5. G-tube cellulitis. PLAN: 1. Antimicrobials. 2. Wound care. 3. Avoid excessive medications with negative chronotropic potential. 4. Clonidine was discontinued. 5. Beta-albaro can be continued and titrated. 6. Monitor volume status and cardiorenal function. 7. We will follow. Augustine Fisher M.D. DR: LUKASZ JOB#: [id number] CC:
--- NOTE | 2019-08-16 06:55 | NUR ---
HAND-OFF: Report given to KEHINDE Hughes, pt. remains stable and no signs of distress noted- aware to f/u on any abnormal am labs.
--- NOTE | 2019-08-16 07:04 | NUR ---
HAND-OFF: Report given to Dustin Figueroa, KEHINDE, pt. remains stable and no signs of distress noted- aware to f/u on any abnormal am labs- Mag 1.3 trending down- Troponin trending down. Addendum: 08/16/19 at 0705 by ROWAN SOLARES RN RN correction to message above- please disregard meant for another patient.
--- NOTE | 2019-08-16 07:15 | NUR ---
NURSE NOTES: Received report from KEHINDE Barber. The patient is resting on the bed but agitated, restless, and confused and tries to pull out medical care administrator. Communication made by facial expression and body movement. The patient is trached and vented on following setting as ordered: Portex 8, AC 14, TV 450, FiO2 40%, PEEP 5 and oxygen saturation is 100%. The patient has L NGT @65 jennifer that is intact and patent, placement confirmed, and Osmolite 1.5 @60mL/hr running as ordered and no residual noted. Thakkar intact and draining by gravity. Skin issue noted and dressing intact. R AC 20G and L wrist 22G intact and patent and kept in TKO. R soft wrist restraints on per order for removing medical care administrator per order. Will follow up the lab and order. Will continue plan of care. Addendum: 08/16/19 at 1320 by Joshua Feliz RN The patient's bed in the lowest position, call light in reach, and fall and aspiration precaution reinforced.
[2019-08-16 08:00] VITALS: BP_SYST 128; BP_SYST 142; BP_DIAS 72; BP_DIAS 82
[2019-08-16 08:40] LABS: HEMOGLOBIN 8.6 G/DL (14.2-18.0); LYMPHOCYTES % (AUTO) 10.6 % (20.0-45.0); MEAN CORPUSCULAR VOLUME 107 FL (80-99); MONOCYTES % (AUTO) 9.3 % (1.0-10.0); NEUTROPHILS % (AUTO) 78.1 % (45.0-75.0); PLATELET COUNT 232 K/UL (150-450); RED BLOOD COUNT 2.53 M/UL (4.70-6.10); RED CELL DISTRIBUTION WIDTH 14.1 % (11.6-14.8); WHITE BLOOD COUNT 8.7 K/UL (4.8-10.8)
[2019-08-16 08:52] LABS: ANION GAP 6 mmol/L (5-15); BLOOD UREA NITROGEN 12 mg/dL (7-18); CALCIUM 7.8 MG/DL (8.5-10.1); CARBON DIOXIDE 31 MMOL/L (21-32); CHLORIDE 103 MMOL/L (98-107); CREATININE 0.9 MG/DL (0.55-1.30); POTASSIUM 3.7 MMOL/L (3.5-5.1); SODIUM 140 MMOL/L (136-145)
[2019-08-16 08:56] LABS: ALANINE AMINOTRANSFERASE 20 U/L (12-78); ALBUMIN 1.6 G/DL (3.4-5.0); ALBUMIN/GLOBULIN RATIO 0.3 (1.0-2.7); ALKALINE PHOSPHATASE 93 U/L (46-116); ASPARTATE AMINO TRANSFERASE 22 U/L (15-37); BILIRUBIN,TOTAL 0.3 MG/DL (0.2-1.0)
[2019-08-16] MEDS: Heparin 5000 units/ml inj SUBQ SCH ×2 (09:00→20:40)
[2019-08-16] MEDS: Lisinopril 20mg tab GT SCH ×2 (09:22→20:37)
[2019-08-16] MEDS: Ascorbic Acid 500mg tab GT SCH (09:23)
[2019-08-16] MEDS: Amantadine 100mg cap GT SCH (09:23)
[2019-08-16] MEDS: Pantoprazole Inj IVP SCH ×2 (09:23→20:36)
--- NOTE | 2019-08-16 09:30 | NUR ---
NURSE NOTES: The patient is stable without acute distress or shortness of breath. Stable vital signs noted. Will closely monitor the patient. Will continue plan of care.
--- NOTE | 2019-08-16 09:32 | Pulmonology Progress Note ---
Subjective ROS Limited/Unobtainable: Yes Constitutional: Denies: fever Allergies: Coded Allergies: No Known Allergies (Unverified , 08/07/19) Subjective remains ill dc planning discussed vitals better low K replaced low HH Objective Last 24 Hour Vital Signs Date Time Temp Pulse Resp B/P (MAP) Pulse Ox O2 Delivery O2 Flow Rate FiO2 08/16/19 09:22 64 142/82 08/16/19 09:22 64 142/82 08/16/19 09:22 142/82 08/16/19 08:00 97.3 78 18 128/72 (90) 100 78 08/16/19 07:25 73 25 35 08/16/19 04:00 40 08/16/19 04:00 Mechanical Ventilator Mechanical Ventilator 08/16/19 04:00 98.4 72 20 146/83 (104) 100 08/16/19 03:31 72 08/16/19 02:42 70 22 35 08/16/19 00:00 98.0 88 18 146/75 (98) 100 08/16/19 00:00 40 08/16/19 00:00 Mechanical Ventilator Mechanical Ventilator 08/15/19 23:31 90 08/15/19 23:29 71 21 35 08/15/19 20:35 79 131/78 08/15/19 20:34 131/78 08/15/19 20:00 Mechanical Ventilator Mechanical Ventilator 08/15/19 20:00 40 08/15/19 20:00 98.1 68 20 131/78 (95) 100 08/15/19 19:22 79 08/15/19 19:21 76 26 35 08/15/19 16:00 98.6 78 23 139/69 (92) 100 08/15/19 16:00 Mechanical Ventilator Mechanical Ventilator 08/15/19 16:00 40 08/15/19 15:30 79 25 35 08/15/19 15:24 78 08/15/19 12:00 40 08/15/19 12:00 98.2 69 27 143/78 (99) 100 08/15/19 12:00 Mechanical Ventilator Mechanical Ventilator 08/15/19 11:37 68 08/15/19 11:20 64 22 35 Intake and Output 08/15/19 08/16/19 19:00 07:00 Intake Total 777.5 ml 902.5 ml Output Total 750 ml 525 ml Balance 27.5 ml 377.5 ml Free Water 50 ml IV Total 137.5 ml 192.5 ml Tube Feeding 540 ml 660 ml Other 100 ml Output Urine Total 750 ml 525 ml Objective WDWN trach reduced breath sounds bilaterally without rhonchi or wheeze [id number] without MRG NABS nontender GT- noted drainage no CCE reduced LOC Laboratory Tests 08/16/19 08:25: White Blood Count 8.7, Red Blood Count 2.53L, Hemoglobin 8.6L, Hematocrit 27.0L , Mean Corpuscular Volume 107H, Mean Corpuscular Hemoglobin 33.9H, Mean Corpuscular Hemoglobin Concent 31.7L, Red Cell Distribution Width 14.1, Platelet Count 232, Mean Platelet Volume 7.3, Neutrophils (%) (Auto) 78.1H, Lymphocytes (%) (Auto) 10.6L, Monocytes (%) (Auto) 9.3, Eosinophils (%) (Auto) 1.0, Basophils (%) (Auto) 1.0, Sodium Level 140, Potassium Level 3.7, Chloride Level 103, Carbon Dioxide Level 31, Anion Gap 6, Blood Urea Nitrogen 12, Creatinine 0.9, Estimat Glomerular Filtration Rate > 60, Glucose Level 114H, Calcium Level 7.8L, Total Bilirubin 0.3, Aspartate Amino Transf (AST/SGOT) 22, Alanine Aminotransferase (ALT/SGPT) 20, Alkaline Phosphatase 93, Total Protein 7.0, Albumin 1.6L, Globulin 5.4, Albumin/Globulin Ratio 0.3L Current Medications Medications (Trade) Dose Ordered Sig/Nury Route PRN Reason Start Time Stop Time Status Last Admin Dose Admin Acetaminophen (Tylenol) 325 mg Q6H PRN RECTAL Temp >100.5 08/08/19 21:45 09/07/19 21:44 Acetaminophen (Tylenol) 650 mg Q4H PRN GT Mild Pain (Pain Scale 1-3) 08/08/19 10:45 09/07/19 10:44 Acetaminophen (Tylenol) 650 mg Q4H PRN GT Temp >100.5 08/08/19 10:45 09/07/19 10:44 Amantadine HCl (Symmetrel) 100 mg DAILY GT 08/09/19 09:00 09/08/19 08:59 08/16/19 09:23 Amlodipine Besylate (Norvasc) 5 mg DAILY GT 08/10/19 09:00 09/09/19 08:59 08/16/19 09:22 Ascorbic Acid (Vitamin C) 250 mg DAILY GT 08/09/19 09:00 09/08/19 08:59 08/16/19 09:23 Doxazosin Mesylate (Cardura) 2 mg QHS GT 08/08/19 21:00 09/07/19 20:59 08/15/19 20:34 Folic Acid (Folate) 1 mg DAILY GT 08/08/19 14:30 09/07/19 14:29 08/16/19 09:21 Heparin Sodium (Porcine) (Heparin 5000 units/ml) 5,000 units EVERY 12 HOURS SUBQ 08/08/19 21:00 09/22/19 20:59 08/15/19 20:35 Hydralazine HCl (Apresoline) 10 mg Q6H PRN IV SBP> 160 08/08/19 21:45 11/06/19 21:44 Lisinopril (PriniviL) 20 mg Q12HR GT 08/08/19 21:00 09/07/19 20:59 08/16/19 09:22 Metoprolol Tartrate (Lopressor) 25 mg Q12HR GT 08/09/19 09:00 11/07/19 08:59 08/16/19 09:22 Multivitamins (Multivitamins) 1 tab DAILY GT 08/09/19 09:00 09/08/19 08:59 08/16/19 09:22 Pantoprazole (Protonix) 40 mg EVERY 12 HOURS IVP 08/09/19 23:00 09/08/19 22:59 08/16/19 09:23 Piperacillin Sod/ Tazobactam Sod 3.375 gm/Sodium Chloride 110 ml @ 27.5 mls/hr Q8H IVPB 08/12/19 02:00 08/19/19 01:59 08/16/19 01:26 Assessment/Plan Assessment/Plan anemia possible GIB sinus tachycardia respiratory failure trach chronic encephalopathy GT low K fevers better severe protein calorie malnutrition PLAN dc planning vent support feeds per gi . monitor HH complete antibiotics after dc discuss with consultants as to disposition impression, plan, and exam edited and reviewed in detail care discussed with Isaiah Villatoro MD 17, 2020 09:32
--- NOTE | 2019-08-16 09:45 | NUR ---
NURSE NOTES: Checked the order for discharge per Dr. Hurt. Paged Dr. Hurt to confirm. Dr. Hurt cancelled the discharge order since the patient needs PEG placement that is scheduled on this Wednesday (08/18/2019) prior to discharge. Informed the charge nurse regarding communication made with Dr. Hurt. Will continue plan of care.
--- NOTE | 2019-08-16 10:00 | NUR ---
NURSE NOTES: Morning medication administered per order. The patient is stable at this time. Will closely monitor the patient. Will continue plan of care.
--- NOTE | 2019-08-16 10:46 | NUR ---
*-* INSURANCE *-* UPDATED CLINICALS HAVE BEEN FAXED TO: [facility] REF# [id number] COCOM:NICHOLAS [phone] P: [phone] F: [phone] AFTER HOURS # [phone]
--- NOTE | 2019-08-16 10:56 | NUR ---
RD ASSESSMENT & RECOMMENDATIONS SEE CARE ACTIVITY FOR COMPLETE ASSESSMENT DAILY ESTIMATED NEEDS: Needs based on Critical care, wound 79gk 22-28 kcals/kg 6475-0582 total kcals 1.25-2 g protein/kg 99-158 g total protein 25-30 mL/kg 3457-9380 total fluid mLs NUTRITION DIAGNOSIS: Increased pro needs r/t wound healing as evidenced by pt w/ multiple wounds, refer to WC nurse eval, trach and peg dep. CURRENT TF: Osmolite 1.5 @60ml/hr x20 hrs ENTERAL NUTRITION RECOMMENDATIONS: Osmolite 1.5 @65ml/hr x 20 hrs to provide 1300ml, 1950kcal, 82g prot, 990ml free water - Increase goal rate to 65ml/hr to bettr meet needs - Add PROSOURCE QD (11g pro) to better meet est pro needs. - Flush per MD. HOB over 30 degrees Post PEG placement, initiate slowly @ 25ml/hr x 6hrs, advance 10ml q 4-6 hrs as tolerated to goal ADDITIONAL RECOMMENDATIONS: 1) Per SNF: 5'11" and 174 lbs 2) Wound care: add JANE BID via TF + Zn SO4 220 mg qd x10 days 3) Maintain calibrated bed scale wts 4) Monitor lytes, replete as needed (low K) .
--- NOTE | 2019-08-16 11:09 | Infectious Diseases Prog Note ---
"Assessment/Plan Assessment/Plan antibiotics : zosyn A 1. pseudomonas | providencia pneumonia COVID negative x 2 2. klebsiella | pseudomonas | VRE Gt site cellulitis 3. respiratory failure 4. leucocytosis improving P 1. continue zosyn 3 more days 2. will follow up cultures Subjective ROS Limited/Unobtainable: Yes Allergies: Coded Allergies: No Known Allergies (Unverified , 08/07/19) Objective Vital Signs Last 24 Hour Vital Signs Date Time Temp Pulse Resp B/P (MAP) Pulse Ox O2 Delivery O2 Flow Rate FiO2 08/16/19 10:43 80 27 35 08/16/19 09:22 64 142/82 08/16/19 09:22 64 142/82 08/16/19 09:22 142/82 08/16/19 08:00 97.3 78 18 128/72 (90) 100 78 08/16/19 07:36 64 08/16/19 07:25 73 25 35 08/16/19 04:00 40 08/16/19 04:00 Mechanical Ventilator Mechanical Ventilator 08/16/19 04:00 98.4 72 20 146/83 (104) 100 08/16/19 03:31 72 08/16/19 02:42 70 22 35 08/16/19 00:00 98.0 88 18 146/75 (98) 100 08/16/19 00:00 40 08/16/19 00:00 Mechanical Ventilator Mechanical Ventilator 08/15/19 23:31 90 08/15/19 23:29 71 21 35 08/15/19 20:35 79 131/78 08/15/19 20:34 131/78 08/15/19 20:00 Mechanical Ventilator Mechanical Ventilator 08/15/19 20:00 40 08/15/19 20:00 98.1 68 20 131/78 (95) 100 08/15/19 19:22 79 08/15/19 19:21 76 26 35 08/15/19 16:00 98.6 78 23 139/69 (92) 100 08/15/19 16:00 Mechanical Ventilator Mechanical Ventilator 08/15/19 16:00 40 08/15/19 15:30 79 25 35 08/15/19 15:24 78 08/15/19 12:00 40 08/15/19 12:00 98.2 69 27 143/78 (99) 100 08/15/19 12:00 Mechanical Ventilator Mechanical Ventilator 08/15/19 11:37 68 08/15/19 11:20 64 22 35 Height (Feet): 5 Height (Inches): 6.00 Weight (Pounds): 220 HEENT: status post trach Respiratory/Chest: lungs clear Cardiovascular: normal rate, regular rhythm, no gallop/murmur Abdomen: soft, non tender, other (Gt site drainage) Extremities: no edema Laboratory Tests Test 08/16/19 08:25 White Blood Count 8.7 K/UL (4.8-10.8) Red Blood Count 2.53 M/UL (4.70-6.10) L Hemoglobin 8.6 G/DL (14.2-18.0) L Hematocrit 27.0 % (42.0-52.0) L Mean Corpuscular Volume 107 FL (80-99) H Mean Corpuscular Hemoglobin 33.9 PG (27.0-31.0) H Mean Corpuscular Hemoglobin Concent 31.7 G/DL (32.0-36.0) L Red Cell Distribution Width 14.1 % (11.6-14.8) Platelet Count 232 K/UL (150-450) Mean Platelet Volume 7.3 FL (6.5-10.1) Neutrophils (%) (Auto) 78.1 % (45.0-75.0) H Lymphocytes (%) (Auto) 10.6 % (20.0-45.0) L Monocytes (%) (Auto) 9.3 % (1.0-10.0) Eosinophils (%) (Auto) 1.0 % (0.0-3.0) Basophils (%) (Auto) 1.0 % (0.0-2.0) Sodium Level 140 MMOL/L (136-145) Potassium Level 3.7 MMOL/L (3.5-5.1) Chloride Level 103 MMOL/L (98-107) Carbon Dioxide Level 31 MMOL/L (21-32) Anion Gap 6 mmol/L (5-15) Blood Urea Nitrogen 12 mg/dL (7-18) Creatinine 0.9 MG/DL (0.55-1.30) Estimat Glomerular Filtration Rate > 60 mL/min (>60) Glucose Level 114 MG/DL (74-106) H Calcium Level 7.8 MG/DL (8.5-10.1) L Total Bilirubin 0.3 MG/DL (0.2-1.0) Aspartate Amino Transf (AST/SGOT) 22 U/L (15-37) Alanine Aminotransferase (ALT/SGPT) 20 U/L (12-78) Alkaline Phosphatase 93 U/L (46-116) Total Protein 7.0 G/DL (6.4-8.2) Albumin 1.6 G/DL (3.4-5.0) L Globulin 5.4 g/dL Albumin/Globulin Ratio 0.3 (1.0-2.7) L Current Medications Medications (Trade) Dose Ordered Sig/Nury Route PRN Reason Start Time Stop Time Status Last Admin Dose Admin Acetaminophen (Tylenol) 325 mg Q6H PRN RECTAL Temp >100.5 08/08/19 21:45 09/07/19 21:44 Acetaminophen (Tylenol) 650 mg Q4H PRN GT Mild Pain (Pain Scale 1-3) 08/08/19 10:45 09/07/19 10:44 Acetaminophen (Tylenol) 650 mg Q4H PRN GT Temp >100.5 08/08/19 10:45 09/07/19 10:44 Amantadine HCl (Symmetrel) 100 mg DAILY GT 08/09/19 09:00 09/08/19 08:59 08/16/19 09:23 Amlodipine Besylate (Norvasc) 5 mg DAILY GT 08/10/19 09:00 09/09/19 08:59 08/16/19 09:22 Ascorbic Acid (Vitamin C) 250 mg DAILY GT 08/09/19 09:00 09/08/19 08:59 08/16/19 09:23 Doxazosin Mesylate (Cardura) 2 mg QHS GT 08/08/19 21:00 09/07/19 20:59 08/15/19 20:34 Folic Acid (Folate) 1 mg DAILY GT 08/08/19 14:30 09/07/19 14:29 08/16/19 09:21 Heparin Sodium (Porcine) (Heparin 5000 units/ml) 5,000 units EVERY 12 HOURS SUBQ 08/08/19 21:00 09/22/19 20:59 08/15/19 20:35 Hydralazine HCl (Apresoline) 10 mg Q6H PRN IV SBP> 160 08/08/19 21:45 11/06/19 21:44 Lisinopril (PriniviL) 20 mg Q12HR GT 08/08/19 21:00 09/07/19 20:59 08/16/19 09:22 Metoprolol Tartrate (Lopressor) 25 mg Q12HR GT 08/09/19 09:00 11/07/19 08:59 08/16/19 09:22 Multivitamins (Multivitamins) 1 tab DAILY GT 08/09/19 09:00 09/08/19 08:59 08/16/19 09:22 Pantoprazole (Protonix) 40 mg EVERY 12 HOURS IVP 08/09/19 23:00 09/08/19 22:59 08/16/19 09:23 Piperacillin Sod/ Tazobactam Sod 3.375 gm/Sodium Chloride 110 ml @ 27.5 mls/hr Q8H IVPB 08/12/19 02:00 08/19/19 01:59 08/16/19 09:30 Jude Ochoa MD Aug 16, 2019 11:09"
[2019-08-16 12:00] VITALS: BP_SYST 142; BP_SYST 149; BP_DIAS 82; BP_DIAS 83
--- NOTE | 2019-08-16 12:00 | NUR ---
NURSE NOTES: The patient is stable without acute distress or shortness of breath. Stable vital signs noted. New IV inserted on R wrist 20G that is intact and patent. Will continue plan of care.
--- NOTE | 2019-08-16 13:30 | Surgery Progress Note ---
Surgery Progress Note Subjective Additional Comments discussed with GI consider plan for peg away from old side if possible if not plan for surgical feeding tube Objective Last 24 Hour Vital Signs Date Time Temp Pulse Resp B/P (MAP) Pulse Ox O2 Delivery O2 Flow Rate FiO2 08/16/19 12:00 72 08/16/19 12:00 Mechanical Ventilator Mechanical Ventilator 08/16/19 12:00 98.8 79 20 149/83 (105) 100 08/16/19 12:00 40 08/16/19 10:43 80 27 35 08/16/19 09:22 64 142/82 08/16/19 09:22 64 142/82 08/16/19 09:22 142/82 08/16/19 08:00 97.3 78 18 128/72 (90) 100 78 08/16/19 08:00 Mechanical Ventilator Mechanical Ventilator 08/16/19 08:00 97.3 64 20 142/82 (102) 100 08/16/19 08:00 40 08/16/19 07:36 64 08/16/19 07:25 73 25 35 08/16/19 04:00 40 08/16/19 04:00 Mechanical Ventilator Mechanical Ventilator 08/16/19 04:00 98.4 72 20 146/83 (104) 100 08/16/19 03:31 72 08/16/19 02:42 70 22 35 08/16/19 00:00 98.0 88 18 146/75 (98) 100 08/16/19 00:00 40 08/16/19 00:00 Mechanical Ventilator Mechanical Ventilator 08/15/19 23:31 90 08/15/19 23:29 71 21 35 08/15/19 20:35 79 131/78 08/15/19 20:34 131/78 08/15/19 20:00 Mechanical Ventilator Mechanical Ventilator 08/15/19 20:00 40 08/15/19 20:00 98.1 68 20 131/78 (95) 100 08/15/19 19:22 79 08/15/19 19:21 76 26 35 08/15/19 16:00 98.6 78 23 139/69 (92) 100 08/15/19 16:00 Mechanical Ventilator Mechanical Ventilator 08/15/19 16:00 40 08/15/19 15:30 79 25 35 08/15/19 15:24 78 I&O Intake and Output 08/15/19 08/16/19 19:00 07:00 Intake Total 777.5 ml 902.5 ml Output Total 750 ml 525 ml Balance 27.5 ml 377.5 ml Free Water 50 ml IV Total 137.5 ml 192.5 ml Tube Feeding 540 ml 660 ml Other 100 ml Output Urine Total 750 ml 525 ml Dressing: saturated Cardiovascular: RSR Respiratory: decreased breath sounds Abdomen: soft, non-tender, present bowel sounds, other, non-distended Extremities: no cyanosis Laboratory Tests Test 08/16/19 08:25 White Blood Count 8.7 K/UL (4.8-10.8) Red Blood Count 2.53 M/UL (4.70-6.10) L Hemoglobin 8.6 G/DL (14.2-18.0) L Hematocrit 27.0 % (42.0-52.0) L Mean Corpuscular Volume 107 FL (80-99) H Mean Corpuscular Hemoglobin 33.9 PG (27.0-31.0) H Mean Corpuscular Hemoglobin Concent 31.7 G/DL (32.0-36.0) L Red Cell Distribution Width 14.1 % (11.6-14.8) Platelet Count 232 K/UL (150-450) Mean Platelet Volume 7.3 FL (6.5-10.1) Neutrophils (%) (Auto) 78.1 % (45.0-75.0) H Lymphocytes (%) (Auto) 10.6 % (20.0-45.0) L Monocytes (%) (Auto) 9.3 % (1.0-10.0) Eosinophils (%) (Auto) 1.0 % (0.0-3.0) Basophils (%) (Auto) 1.0 % (0.0-2.0) Sodium Level 140 MMOL/L (136-145) Potassium Level 3.7 MMOL/L (3.5-5.1) Chloride Level 103 MMOL/L (98-107) Carbon Dioxide Level 31 MMOL/L (21-32) Anion Gap 6 mmol/L (5-15) Blood Urea Nitrogen 12 mg/dL (7-18) Creatinine 0.9 MG/DL (0.55-1.30) Estimat Glomerular Filtration Rate > 60 mL/min (>60) Glucose Level 114 MG/DL (74-106) H Calcium Level 7.8 MG/DL (8.5-10.1) L Total Bilirubin 0.3 MG/DL (0.2-1.0) Aspartate Amino Transf (AST/SGOT) 22 U/L (15-37) Alanine Aminotransferase (ALT/SGPT) 20 U/L (12-78) Alkaline Phosphatase 93 U/L (46-116) Total Protein 7.0 G/DL (6.4-8.2) Albumin 1.6 G/DL (3.4-5.0) L Globulin 5.4 g/dL Albumin/Globulin Ratio 0.3 (1.0-2.7) L Plan Problems: (1) Anemia (2) Unstageable decubitus ulcer Assessment & Plan: Pt presented on admission with multiple Pressure Injuries. Pt has a Tracheostomy and no areas of skin concerns noted under tracheal collar. Unstageable Sacral Pressure Injury(L)9.5cm x (W)10cm. Base of wound is 75% mixed slough and eschar,25% carolynn, Edges adherent with surrounding purple and maroon indurated borders. No odor or exudate noted. DTPI L Heel (L)3.7cm x (W)4.5cm. Base of wound is maroon and indurated with surrounding non-Blanching erythema. Callused skin periwound. Reabsorbing DTPI [place] L Foot (L)3.3cm x (W)2.5cm. Base of Pressure Injury is maroon but dry. No erythema or fluctuance periwound. DTPI Lateral L 1st metatarsal(L)1.5cm x (W)2cm. Base of wound is maroon and indurated.Callused skin periwound. DTPI Lateral R Heel (L)4.4cm x (W)6cm. Base of wound is indurated ,purple with surrounding maroon and fluctuant borders.Callusing periwound. DTPI R Hallux (L)1.8cm x (W)1.9cm. Base of wound is indurated and purple. Callusing periwound. DTPI Lateral R 1st metatarsal(L)2cm x (W)2.7cm. Base of wound is indurated and maroon. Callusing periwound. Tx.Plan: Cleanse Sacral wound with Saline. Apply TheraHoney. Apply Moisture Barrier Paste periwound. Cover with Optifoam drsg. Change every 3 days and prn. Apply Cavilon Skin Barrier to wounds L L Heel , L st metatarsal,Dorsal L Foot. Cover each Site with Optifoam drsg. Change every 7 days and prn. Apply Cavilon Skin Barrier to R Heel, R Hallux, R 1st metatarsal. Cover each site with Optifoam drsg. Change every 7 days and prn. APM/KHOA Mattress. Reposition at least every 2hours or as tolerated. Off-Load Heels with Pillows. (3) Leaking PEG tube Assessment & Plan: prior peg removed plan new placement soon will monitor site drainage noted packing placed Minimal drainage from prior G-tube site discussed with nursing about packing and dressings will continue current care plan plan for PEG tube once improved Lung bases: Atelectasis at the lung bases. Liver: Unremarkable. No mass. Gallbladder and bile ducts: Unremarkable. No calcified stones. No ductal dilation. Pancreas: Unremarkable. No mass. No ductal dilation. Spleen: Unremarkable. No splenomegaly. Adrenals: Unremarkable. No mass. Kidneys and ureters: Nonobstructing stone in the lower pole of the right kidney. Stomach and bowel: Tract from a recent percutaneous gastrostomy tube which is healing in the subcutaneous fat. Surrounding inflammatory changes but no abscess. Severe colonic diverticulosis within the sigmoid colon with mural hypertrophy however no surrounding inflammatory changes to suggest acute diverticulitis. Underlying malignancy not excluded. No obstruction. Intraperitoneal space: Unremarkable. No free air. No significant fluid collection. Bones/joints: No acute fracture. No dislocation. Soft tissues: Fat stranding in the ventral abdomen. Vasculature: Unremarkable. No abdominal aortic aneurysm. Lymph nodes: Unremarkable. No enlarged lymph nodes. Tubes, lines and devices: Thakkar catheter within the bladder. IMPRESSION: 1. Severe colonic diverticulosis within the sigmoid colon with mural hypertrophy however no surrounding inflammatory changes to suggest acute diverticulitis. Underlying malignancy not excluded. 2. Tract from a recent percutaneous gastrostomy tube which is healing in the subcutaneous fat. Surrounding inflammatory changes but no abscess. (4) Person under investigation for COVID-19 Assessment & Plan: There is a tracheostomy. Calcified granuloma is seen in the right midlung. Granulomatous calcified nodes are seen in the left aortopulmonary window. No definite infiltrates, effusions, congestion. The heart size is upper limits normal. Impression: No definite acute abnormality Evidence of old granulomatous disease Homero Cummings Aug 16, 2019 13:30
--- NOTE | 2019-08-16 14:00 | NUR ---
NURSE NOTES: The patient pulled out IV again. New IV inserted on R hand 20G that is intact and patent. Will closely monitor the patient. Will continue plan of care.
--- NOTE | 2019-08-16 14:13 | NUR ---
CASE MANAGEMENT: REVIEW SI: ANEMIA . A-FIB . LEAKING G-TUBE T 97.3 HR 78 RR 27 BP 142/82 SAT 100% MECH VENT FIO2 40 H/H 8.6/27.0 CALCIUM 7.8 ALBUMIN 1.6 IS: ZOSYN IV Q8HR PROTONIX IV Q12HR HEPARIN SUBQ Q12HR LOPRESSOR GT Q12HR G-TUBE REPLACEMENT PENDING NGT FEEDING PACKING & DRESSING @ G-TUBE SITE DUE TO DRAINAGE STEP DOWN UNIT STATUS DCP: PATIENT IS FROM [facility]
[2019-08-16 16:00] VITALS: BP 146/82
--- NOTE | 2019-08-16 16:00 | NUR ---
NURSE NOTES: Bed bath given to the patient. Tolerated well. Green BM noted. Wound dressing changed. Will closely monitor the patient. Will continue plan of care.
--- NOTE | 2019-08-16 18:00 | NUR ---
NURSE NOTES: The patient is stable without acute distress or shortness of breath. Medication administered as ordered. Tolerating NGT feeding and vent setting well. SR of 70s noted. Will closely monitor the patient. Will continue plan of care.
--- NOTE | 2019-08-16 19:15 | NUR ---
HAND-OFF: Report given to KEHINDE Barber. The patient is on stable condition. Endorsed plan of care.
--- NOTE | 2019-08-16 19:32 | NUR ---
NURSE NOTES: Received report from KEHINDE Hughes, pt. in bed awake with eyes open- non-verbal- no signs or symptoms of acute cardiac or respiratory distress noted, bed alarm on, side rails up x's3 and safety brakes engaged, HOB elevated, call light within easy reach, pt. appears to be 76 on ekg monitor- SR. Pt. has NGT in left Nare running Osmolite 1.5 at 60cc/hr- no residual noted, Thakkar intact and draining to gravity- pt. appears to be clean and dry, Thakkar intact and draining to gravity, Rt. hand 20G IV intact and patent- TKO, pt. appears clean and dry, pt. has rt. wrist restraint- restraint removed- pulse is palpable and skin is intact- restraint reapplied, safety measures continued, will continue with plan of care.
[2019-08-16 20:00] VITALS: BP 154/85
[2019-08-16] MEDS: Doxazosin 4mg tab GT SCH (20:36)
--- NOTE | 2019-08-16 22:05 | General Progress Note ---
Assessment/Plan Assessment/Plan: Assessment - GT migration out of stomach - Mushroom cap in anterior abdominal wall (GT removed) - Abdominal wall induration - improving - anemia - OB (+) stools - no GI w/u per DPOA - Dark stools on PO Iron - s/p Trach Recommendations - PPI - NGT for meds and feeds - broad spectrum abx - follow exam and labs - transfuse as needed - d/c PO Iron ----> IV Fe - laxative, PRN - Will need PEG replacement- plan to do by end of week, likely Wednesday Subjective Allergies: Coded Allergies: No Known Allergies (Unverified , 08/07/19) Subjective above noted NAD no events overnight d/w surgery Objective Last 24 Hour Vital Signs Date Time Temp Pulse Resp B/P (MAP) Pulse Ox O2 Delivery O2 Flow Rate FiO2 08/16/19 20:40 102 154/85 08/16/19 20:37 154/85 08/16/19 20:00 40 08/16/19 20:00 98.1 102 20 154/85 (108) 100 08/16/19 20:00 Mechanical Ventilator Mechanical Ventilator 08/16/19 19:06 87 08/16/19 19:00 87 23 35 08/16/19 18:55 106 08/16/19 16:00 98.8 79 20 146/82 (103) 100 08/16/19 16:00 40 08/16/19 16:00 77 08/16/19 16:00 Mechanical Ventilator Mechanical Ventilator 08/16/19 15:11 79 26 35 08/16/19 12:00 72 08/16/19 12:00 Mechanical Ventilator Mechanical Ventilator 08/16/19 12:00 98.8 79 20 149/83 (105) 100 08/16/19 12:00 40 08/16/19 10:43 80 27 35 08/16/19 09:22 64 142/82 08/16/19 09:22 64 142/82 08/16/19 09:22 142/82 08/16/19 08:00 97.3 78 18 128/72 (90) 100 78 08/16/19 08:00 Mechanical Ventilator Mechanical Ventilator 08/16/19 08:00 97.3 64 20 142/82 (102) 100 08/16/19 08:00 40 08/16/19 07:36 64 08/16/19 07:25 73 25 35 08/16/19 04:00 40 08/16/19 04:00 Mechanical Ventilator Mechanical Ventilator 08/16/19 04:00 98.4 72 20 146/83 (104) 100 08/16/19 03:31 72 08/16/19 02:42 70 22 35 08/16/19 00:00 98.0 88 18 146/75 (98) 100 08/16/19 00:00 40 08/16/19 00:00 Mechanical Ventilator Mechanical Ventilator 08/15/19 23:31 90 08/15/19 23:29 71 21 35 Intake and Output 08/15/19 08/16/19 19:00 07:00 Intake Total 777.5 ml 902.5 ml Output Total 750 ml 525 ml Balance 27.5 ml 377.5 ml Free Water 50 ml IV Total 137.5 ml 192.5 ml Tube Feeding 540 ml 660 ml Other 100 ml Output Urine Total 750 ml 525 ml Laboratory Tests 08/16/19 08:25: White Blood Count 8.7, Red Blood Count 2.53L, Hemoglobin 8.6L, Hematocrit 27.0L , Mean Corpuscular Volume 107H, Mean Corpuscular Hemoglobin 33.9H, Mean Corpuscular Hemoglobin Concent 31.7L, Red Cell Distribution Width 14.1, Platelet Count 232, Mean Platelet Volume 7.3, Neutrophils (%) (Auto) 78.1H, Lymphocytes (%) (Auto) 10.6L, Monocytes (%) (Auto) 9.3, Eosinophils (%) (Auto) 1.0, Basophils (%) (Auto) 1.0, Sodium Level 140, Potassium Level 3.7, Chloride Level 103, Carbon Dioxide Level 31, Anion Gap 6, Blood Urea Nitrogen 12, Creatinine 0.9, Estimat Glomerular Filtration Rate > 60, Glucose Level 114H, Calcium Level 7.8L, Total Bilirubin 0.3, Aspartate Amino Transf (AST/SGOT) 22, Alanine Aminotransferase (ALT/SGPT) 20, Alkaline Phosphatase 93, Total Protein 7.0, Albumin 1.6L, Globulin 5.4, Albumin/Globulin Ratio 0.3L Height (Feet): 5 Height (Inches): 6.00 Weight (Pounds): 220 Objective Obese AA Man NCAT (+) Trach coarse BS RR Abd obese, some distention, GT site closed, still with induration around site, drainage improved trace edema non interactive Rubia Hawk MD Aug 16, 2019 22:05
[2019-08-17] VITALS (7 sets, daily range): BP systolic 122–160; BP diastolic 66–90
[2019-08-17] MEDS: Piperacillin/Tazobactam 3.375 GM in NS 110 ML IVPB SCH ×3 (01:10→17:38)
--- NOTE | 2019-08-17 05:14 | Progress Note ---
DATE: 08/16/2019 CARDIOLOGY PROGRESS NOTE SUBJECTIVE: Patient remains on ventilator support. Monitored rhythm, sinus. Rare atrial ectopy. No bradyarrhythmias. OBJECTIVE: VITAL SIGNS: Blood pressure 154/85, heart rate 77 to 106. No fevers. Bradycardia resolved likely was due to increased vagal tone due to migration of G-tube apparatus and some component of sinus node disease. IMPRESSION: 1. Ventilator-dependent respiratory failure. 2. Stool occult blood positive. 3. Iron deficiency with anemia, on iron replacement. 4. Hypertensive heart disease with rising blood pressure trend. PLAN: 1. No additional cardiovascular workup presently indicated. 2. May consider additional antihypertensive. Discontinue with upward blood pressure trend. 3. Avoid drugs with negative chronotropic potential. Augustine Fisher M.D. DR: LUKASZ JOB#: [id number] CC:
--- NOTE | 2019-08-17 07:03 | NUR ---
HAND-OFF: Report given to Silver RN, pt. remains stable and no signs of distress noted- aware to f/u on any am abnormal labs.
--- NOTE | 2019-08-17 07:10 | NUR ---
NURSE NOTES: Report received from Paddy BUSBY.Pt asleep noted no resp distress,with trach tube to vent,ordered vent settings tolerated,with neck brace in placed,no signs of pain or discomfort,SR on the monitor,GTF Nepro at 37 ml/hr,no residual noted,Thakkar cath draining yellow urine,skin warm and dry and very edematous,pt incontinent of diarrhea like liquid yellow stools in large amount,SR up x2 HOB elevated,bed lock in lowest position,will continue with plans of care. Addendum: 08/17/19 at 1118 by AL SMITH RN [id number],wrong documentation,wrong pt.
--- NOTE | 2019-08-17 07:10 | NUR ---
NURSE NOTES: Report received from Sunil William RN.Pt resting in bed awake,noted no resp distress,with,with trach tube to vent,ordered vent settings tolerated,no signs of discomfort noted SR on the monitor,NGT feeding in placed per auscultation,no residual noted,GT nonfunctional and clamped,Thakkar cath draining yellow urine,skin warm and dry,with soft wrist restraint to Rt hand,attempts to reach out vent tubing when loose,,IV site to RH intact ,Sr up x2 HOB elevated ,bed lock ion lowest position will continue with plans of care
--- NOTE | 2019-08-17 08:39 | Infectious Diseases Prog Note ---
Assessment/Plan Assessment/Plan A: Gastrostomy infection Pseudomonas & Providencia pneumonia VDRF Anemia Pressure ulcer Diverticulosis P; Continue Zosyn X 2 days Will have PEG replacement Subjective ROS Limited/Unobtainable: Yes Constitutional: Denies: fever Neurologic: Reports: other - on restraint Allergies: Coded Allergies: No Known Allergies (Unverified , 08/07/19) Objective Vital Signs Last 24 Hour Vital Signs Date Time Temp Pulse Resp B/P (MAP) Pulse Ox O2 Delivery O2 Flow Rate FiO2 08/17/19 07:21 70 16 35 08/17/19 04:00 Mechanical Ventilator Mechanical Ventilator 08/17/19 04:00 98.0 80 20 129/76 (93) 100 08/17/19 04:00 40 08/17/19 03:30 75 08/17/19 02:30 75 25 35 08/17/19 00:00 97.9 85 20 145/78 (100) 100 08/17/19 00:00 Mechanical Ventilator Mechanical Ventilator 08/17/19 00:00 40 08/16/19 23:39 83 08/16/19 22:30 75 27 35 08/16/19 20:40 102 154/85 08/16/19 20:37 154/85 08/16/19 20:00 40 08/16/19 20:00 98.1 102 20 154/85 (108) 100 08/16/19 20:00 Mechanical Ventilator Mechanical Ventilator 08/16/19 19:06 87 08/16/19 19:00 87 23 35 08/16/19 18:55 106 08/16/19 16:00 98.8 79 20 146/82 (103) 100 08/16/19 16:00 40 08/16/19 16:00 77 08/16/19 16:00 Mechanical Ventilator Mechanical Ventilator 08/16/19 15:11 79 26 35 08/16/19 12:00 72 08/16/19 12:00 Mechanical Ventilator Mechanical Ventilator 08/16/19 12:00 98.8 79 20 149/83 (105) 100 08/16/19 12:00 40 08/16/19 10:43 80 27 35 08/16/19 09:22 64 142/82 08/16/19 09:22 64 142/82 08/16/19 09:22 142/82 Height (Feet): 5 Height (Inches): 6.00 Weight (Pounds): 220 HEENT: status post trach Respiratory/Chest: lungs clear, other - on ventilator Cardiovascular: normal rate Abdomen: soft, non tender, other - NG tube Extremities: no edema Neurologic/Psychiatric: aphasia Current Medications Medications (Trade) Dose Ordered Sig/Nury Route PRN Reason Start Time Stop Time Status Last Admin Dose Admin Acetaminophen (Tylenol) 325 mg Q6H PRN RECTAL Temp >100.5 08/08/19 21:45 09/07/19 21:44 Acetaminophen (Tylenol) 650 mg Q4H PRN GT Mild Pain (Pain Scale 1-3) 08/08/19 10:45 09/07/19 10:44 Acetaminophen (Tylenol) 650 mg Q4H PRN GT Temp >100.5 08/08/19 10:45 09/07/19 10:44 Amantadine HCl (Symmetrel) 100 mg DAILY GT 08/09/19 09:00 09/08/19 08:59 08/16/19 09:23 Amlodipine Besylate (Norvasc) 5 mg DAILY GT 08/10/19 09:00 09/09/19 08:59 08/16/19 09:22 Ascorbic Acid (Vitamin C) 250 mg DAILY GT 08/09/19 09:00 09/08/19 08:59 08/16/19 09:23 Doxazosin Mesylate (Cardura) 2 mg QHS GT 08/08/19 21:00 09/07/19 20:59 08/16/19 20:36 Folic Acid (Folate) 1 mg DAILY GT 08/08/19 14:30 09/07/19 14:29 08/16/19 09:21 Heparin Sodium (Porcine) (Heparin 5000 units/ml) 5,000 units EVERY 12 HOURS SUBQ 08/08/19 21:00 09/22/19 20:59 08/16/19 20:40 Hydralazine HCl (Apresoline) 10 mg Q6H PRN IV SBP> 160 08/08/19 21:45 11/06/19 21:44 Lisinopril (PriniviL) 20 mg Q12HR GT 08/08/19 21:00 09/07/19 20:59 08/16/19 20:37 Metoprolol Tartrate (Lopressor) 25 mg Q12HR GT 08/09/19 09:00 11/07/19 08:59 08/16/19 20:40 Multivitamins (Multivitamins) 1 tab DAILY GT 08/09/19 09:00 09/08/19 08:59 08/16/19 09:22 Pantoprazole (Protonix) 40 mg EVERY 12 HOURS IVP 08/09/19 23:00 09/08/19 22:59 08/16/19 20:36 Piperacillin Sod/ Tazobactam Sod 3.375 gm/Sodium Chloride 110 ml @ 27.5 mls/hr Q8H IVPB 08/12/19 02:00 08/19/19 01:59 08/17/19 01:10 Issa Snow MD Aug 17, 2019 08:39
--- NOTE | 2019-08-17 08:57 | Pulmonology Progress Note ---
Subjective ROS Limited/Unobtainable: Yes Constitutional: Denies: fever Allergies: Coded Allergies: No Known Allergies (Unverified , 08/07/19) Subjective remains ill dc planning discussed vitals better GT in am low HH Objective Last 24 Hour Vital Signs Date Time Temp Pulse Resp B/P (MAP) Pulse Ox O2 Delivery O2 Flow Rate FiO2 08/17/19 07:21 70 16 35 08/17/19 04:00 Mechanical Ventilator Mechanical Ventilator 08/17/19 04:00 98.0 80 20 129/76 (93) 100 08/17/19 04:00 40 08/17/19 03:30 75 08/17/19 02:30 75 25 35 08/17/19 00:00 97.9 85 20 145/78 (100) 100 08/17/19 00:00 Mechanical Ventilator Mechanical Ventilator 08/17/19 00:00 40 08/16/19 23:39 83 08/16/19 22:30 75 27 35 08/16/19 20:40 102 154/85 08/16/19 20:37 154/85 08/16/19 20:00 40 08/16/19 20:00 98.1 102 20 154/85 (108) 100 08/16/19 20:00 Mechanical Ventilator Mechanical Ventilator 08/16/19 19:06 87 08/16/19 19:00 87 23 35 08/16/19 18:55 106 08/16/19 16:00 98.8 79 20 146/82 (103) 100 08/16/19 16:00 40 08/16/19 16:00 77 08/16/19 16:00 Mechanical Ventilator Mechanical Ventilator 08/16/19 15:11 79 26 35 08/16/19 12:00 72 08/16/19 12:00 Mechanical Ventilator Mechanical Ventilator 08/16/19 12:00 98.8 79 20 149/83 (105) 100 08/16/19 12:00 40 08/16/19 10:43 80 27 35 08/16/19 09:22 64 142/82 08/16/19 09:22 64 142/82 08/16/19 09:22 142/82 Intake and Output 08/16/19 08/17/19 19:00 07:00 Intake Total 640 ml 820.0 ml Output Total 800 ml 500 ml Balance -160 ml 320.0 ml Free Water 100 ml 50 ml IV Total 110.0 ml Tube Feeding 540 ml 660 ml Output Urine Total 800 ml 500 ml # Bowel Movements 2 4 Objective WDWN trach reduced breath sounds bilaterally without rhonchi or wheeze [id number] without MRG NABS nontender no CCE reduced LOC Current Medications Medications (Trade) Dose Ordered Sig/Nury Route PRN Reason Start Time Stop Time Status Last Admin Dose Admin Acetaminophen (Tylenol) 325 mg Q6H PRN RECTAL Temp >100.5 08/08/19 21:45 09/07/19 21:44 Acetaminophen (Tylenol) 650 mg Q4H PRN GT Mild Pain (Pain Scale 1-3) 08/08/19 10:45 09/07/19 10:44 Acetaminophen (Tylenol) 650 mg Q4H PRN GT Temp >100.5 08/08/19 10:45 09/07/19 10:44 Amantadine HCl (Symmetrel) 100 mg DAILY GT 08/09/19 09:00 09/08/19 08:59 08/16/19 09:23 Amlodipine Besylate (Norvasc) 5 mg DAILY GT 08/10/19 09:00 09/09/19 08:59 08/16/19 09:22 Ascorbic Acid (Vitamin C) 250 mg DAILY GT 08/09/19 09:00 09/08/19 08:59 08/16/19 09:23 Doxazosin Mesylate (Cardura) 2 mg QHS GT 08/08/19 21:00 09/07/19 20:59 08/16/19 20:36 Folic Acid (Folate) 1 mg DAILY GT 08/08/19 14:30 09/07/19 14:29 08/16/19 09:21 Heparin Sodium (Porcine) (Heparin 5000 units/ml) 5,000 units EVERY 12 HOURS SUBQ 08/08/19 21:00 09/22/19 20:59 08/16/19 20:40 Hydralazine HCl (Apresoline) 10 mg Q6H PRN IV SBP> 160 08/08/19 21:45 11/06/19 21:44 Lisinopril (PriniviL) 20 mg Q12HR GT 08/08/19 21:00 09/07/19 20:59 08/16/19 20:37 Metoprolol Tartrate (Lopressor) 25 mg Q12HR GT 08/09/19 09:00 11/07/19 08:59 08/16/19 20:40 Multivitamins (Multivitamins) 1 tab DAILY GT 08/09/19 09:00 09/08/19 08:59 08/16/19 09:22 Pantoprazole (Protonix) 40 mg EVERY 12 HOURS IVP 08/09/19 23:00 09/08/19 22:59 08/16/19 20:36 Piperacillin Sod/ Tazobactam Sod 3.375 gm/Sodium Chloride 110 ml @ 27.5 mls/hr Q8H IVPB 08/12/19 02:00 08/19/19 01:59 08/17/19 01:10 Assessment/Plan Assessment/Plan anemia possible GIB sinus tachycardia respiratory failure trach chronic encephalopathy GT low K fevers better severe protein calorie malnutrition PLAN dc planning vent support feeds per gi GT placement in am and thereafter proceed with dc. monitor HH complete antibiotics in am discuss with consultants as to disposition impression, plan, and exam edited and reviewed in detail care discussed with Isaiah Villatoro MD Aug 17, 2019 08:57
--- NOTE | 2019-08-17 09:05 | NUR ---
CARE WORKER NOTE FARHANA was informed by cleaner and polisher that pt's son Javier Lawton had a question in regards to DC planning. FARHANA spoke w/ pt's granddaughter, Lucille Davis [phone], confirmed that she is the POA and the primary decision maker. Per Lucille, minimal information can be shared w/ pt's son Javier Lawton as he is not a part of family group chat, thus he will not receive an update directly from Lucille. Lucille confirmed [facility] can [facility] when pt becomes stable. FARHANA left a vm to Javier Lawton [phone] for call back. This SW will explain DC procedure and POA document.
--- NOTE | 2019-08-17 09:13 | NUR ---
NURSE NOTES: Son-Alden Lawton called today,to get update about his Dad,I referred him to adoption social worker and admitting to verify his relation with patient ,listed as salesperson furniture is Lucille Davis-GRANDDAUGHTER,who is involve with patients care survey workers supervisor -Harry Sanchez,and admitting staff verified we can give information to son,but the decision maker is Lucille Davis I spoke to Lucille when she called for update about patient,notified about plan for G tube placement per Dr. Hawk when i spoke to him this morning,Thankful for care provided.
[2019-08-17] MEDS: Pantoprazole Inj IVP SCH ×2 (09:32→20:09)
[2019-08-17] MEDS: Ascorbic Acid 500mg tab GT SCH (09:35)
[2019-08-17] MEDS: Amantadine 100mg cap GT SCH (09:37)
[2019-08-17] MEDS: Lisinopril 20mg tab GT SCH ×2 (09:37→20:09)
[2019-08-17] MEDS: Heparin 5000 units/ml inj SUBQ SCH ×2 (09:54→20:05)
--- NOTE | 2019-08-17 12:00 | NUR ---
NURSE NOTES: S/P removal of GT,site with minimal bleeding,cleaned and drsreno chaned.
--- NOTE | 2019-08-17 12:47 | NUR ---
CASE MANAGEMENT:REVIEW SI;PNEUMONIA. G-TUBE INFECTION. 98.0 59 25 160/77 100% TRACH/VENT FIO2 @ 40% IS;ZOSYN IV Q8 PROTONIX IV Q12 AMANTADINE NGT QD VIT V NGT QD LOPRESSOR NGT Q12 CARDURA NGT QD LISINOPRIL NGT Q12 HEPARIN SUBQ Q12 JACKY STATUS DCP;PATIENT IS FROM [facility] CON[facility] PLAN;PEG PLACEMENT
--- NOTE | 2019-08-17 15:13 | Surgery Progress Note ---
Surgery Progress Note Subjective Additional Comments possible new g tube tomorrow comfortable stable labs noted Objective Last 24 Hour Vital Signs Date Time Temp Pulse Resp B/P (MAP) Pulse Ox O2 Delivery O2 Flow Rate FiO2 08/17/19 15:08 77 24 35 08/17/19 12:00 40 08/17/19 12:00 98.0 69 15 150/90 (110) 100 08/17/19 12:00 63 08/17/19 12:00 Mechanical Ventilator Mechanical Ventilator 08/17/19 11:11 59 16 35 08/17/19 09:37 160/77 08/17/19 09:36 72 160/77 08/17/19 09:36 72 160/77 08/17/19 08:00 73 08/17/19 08:00 Mechanical Ventilator Mechanical Ventilator 08/17/19 08:00 97.7 72 20 160/77 (104) 100 08/17/19 08:00 40 08/17/19 07:21 70 16 35 08/17/19 04:00 Mechanical Ventilator Mechanical Ventilator 08/17/19 04:00 98.0 80 20 129/76 (93) 100 08/17/19 04:00 40 08/17/19 03:30 75 08/17/19 02:30 75 25 35 08/17/19 00:00 97.9 85 20 145/78 (100) 100 08/17/19 00:00 Mechanical Ventilator Mechanical Ventilator 08/17/19 00:00 40 08/16/19 23:39 83 08/16/19 22:30 75 27 35 08/16/19 20:40 102 154/85 08/16/19 20:37 154/85 08/16/19 20:00 40 08/16/19 20:00 98.1 102 20 154/85 (108) 100 08/16/19 20:00 Mechanical Ventilator Mechanical Ventilator 08/16/19 19:06 87 08/16/19 19:00 87 23 35 08/16/19 18:55 106 08/16/19 16:00 98.8 79 20 146/82 (103) 100 08/16/19 16:00 40 08/16/19 16:00 77 08/16/19 16:00 Mechanical Ventilator Mechanical Ventilator I&O Intake and Output 08/16/19 08/17/19 19:00 07:00 Intake Total 640 ml 820.0 ml Output Total 800 ml 500 ml Balance -160 ml 320.0 ml Free Water 100 ml 50 ml IV Total 110.0 ml Tube Feeding 540 ml 660 ml Output Urine Total 800 ml 500 ml # Bowel Movements 2 4 Dressing: saturated, other Wound: other Drains: other Cardiovascular: RSR Respiratory: decreased breath sounds Abdomen: soft, non-tender, present bowel sounds, other, non-distended Extremities: edema, no cyanosis Plan Problems: (1) Anemia (2) Unstageable decubitus ulcer Assessment & Plan: Pt presented on admission with multiple Pressure Injuries. Pt has a Tracheostomy and no areas of skin concerns noted under tracheal collar. Unstageable Sacral Pressure Injury(L)9.5cm x (W)10cm. Base of wound is 75% mixed slough and eschar,25% carolynn, Edges adherent with surrounding purple and maroon indurated borders. No odor or exudate noted. DTPI L Heel (L)3.7cm x (W)4.5cm. Base of wound is maroon and indurated with surrounding non-Blanching erythema. Callused skin periwound. Reabsorbing DTPI Whiteside L Foot (L)3.3cm x (W)2.5cm. Base of Pressure Injury is maroon but dry. No erythema or fluctuance periwound. DTPI Lateral L 1st metatarsal(L)1.5cm x (W)2cm. Base of wound is maroon and indurated.Callused skin periwound. DTPI Lateral R Heel (L)4.4cm x (W)6cm. Base of wound is indurated ,purple with surrounding maroon and fluctuant borders.Callusing periwound. DTPI R Hallux (L)1.8cm x (W)1.9cm. Base of wound is indurated and purple. Callusing periwound. DTPI Lateral R 1st metatarsal(L)2cm x (W)2.7cm. Base of wound is indurated and maroon. Callusing periwound. Tx.Plan: Cleanse Sacral wound with Saline. Apply TheraHoney. Apply Moisture Barrier Paste periwound. Cover with Optifoam drsg. Change every 3 days and prn. Apply Cavilon Skin Barrier to wounds L L Heel , L st metatarsal,Dorsal L Foot. Cover each Site with Optifoam drsg. Change every 7 days and prn. Apply Cavilon Skin Barrier to R Heel, R Hallux, R 1st metatarsal. Cover each site with Optifoam drsg. Change every 7 days and prn. APM/KHOA Mattress. Reposition at least every 2hours or as tolerated. Off-Load Heels with Pillows. (3) Leaking PEG tube Assessment & Plan: prior peg removed plan new placement soon will monitor site drainage noted packing placed Minimal drainage from prior G-tube site discussed with nursing about packing and dressings will continue current care plan plan for PEG tube once improved Lung bases: Atelectasis at the lung bases. Liver: Unremarkable. No mass. Gallbladder and bile ducts: Unremarkable. No calcified stones. No ductal dilation. Pancreas: Unremarkable. No mass. No ductal dilation. Spleen: Unremarkable. No splenomegaly. Adrenals: Unremarkable. No mass. Kidneys and ureters: Nonobstructing stone in the lower pole of the right kidney. Stomach and bowel: Tract from a recent percutaneous gastrostomy tube which is healing in the subcutaneous fat. Surrounding inflammatory changes but no abscess. Severe colonic diverticulosis within the sigmoid colon with mural hypertrophy however no surrounding inflammatory changes to suggest acute diverticulitis. Underlying malignancy not excluded. No obstruction. Intraperitoneal space: Unremarkable. No free air. No significant fluid collection. Bones/joints: No acute fracture. No dislocation. Soft tissues: Fat stranding in the ventral abdomen. Vasculature: Unremarkable. No abdominal aortic aneurysm. Lymph nodes: Unremarkable. No enlarged lymph nodes. Tubes, lines and devices: Thakkar catheter within the bladder. IMPRESSION: 1. Severe colonic diverticulosis within the sigmoid colon with mural hypertrophy however no surrounding inflammatory changes to suggest acute diverticulitis. Underlying malignancy not excluded. 2. Tract from a recent percutaneous gastrostomy tube which is healing in the subcutaneous fat. Surrounding inflammatory changes but no abscess. (4) Person under investigation for COVID-19 Assessment & Plan: There is a tracheostomy. Calcified granuloma is seen in the right midlung. Granulomatous calcified nodes are seen in the left aortopulmonary window. No definite infiltrates, effusions, congestion. The heart size is upper limits normal. Impression: No definite acute abnormality Evidence of old granulomatous disease Homero Cummings Aug 17, 2019 15:13
--- NOTE | 2019-08-17 15:21 | NUR ---
*-* INSURANCE *-* UPDATED CLINICALS AND REVIEWS HAVE BEEN FAXED TO: [facility] [id number] COCOM:NICHOLAS [phone] P: [phone] F: [phone] AFTER HOURS # [phone]
--- NOTE | 2019-08-17 15:43 | NUR ---
NURSE NOTES: IV to RT hand pulled out by pt.LT hand getting stronger,mittens applied to LT hand ,attempting also to pull out NGT
--- NOTE | 2019-08-17 16:45 | Progress Note ---
DATE: 08/17/2019 CARDIOLOGY PROGRESS NOTE SUBJECTIVE: G-tube revision planned tomorrow. OBJECTIVE: Vitals are stable. Sinus rhythm. No pauses. Exam unchanged. IMPRESSION: 1. Stable cardiac rhythm. 2. History of bradycardia associated with increased vagal tone. 3. Stable for G-tube replacement. PLAN: We will need to consider possibility of bradycardia during the procedure with Atropine at bedside recommended. Augustine Fisher M.D. DR: LATONYA JOB#: [id number] CC:
--- NOTE | 2019-08-17 18:00 | NUR ---
NURSE NOTES: Pt stable no resp distress presented during the shift ,turned ans repositioned.
--- NOTE | 2019-08-17 19:15 | NUR ---
HAND-OFF: Report given to Linsey Engel RN.
--- NOTE | 2019-08-17 19:44 | NUR ---
NURSE NOTES: Report received from KEHINDE Javier. Observed pt lying in the bed, awake, open-eyes, and non-verbal. SR on leveling machine operator. Tract to vent, Portex 9, AC 14/450/40%/5. NGT on L nares, running Osmolite at 60cc/hr, NPO midnight per procedure noted. F/C intact, draining well. IV on R H 20G, intact, TKO. R wrist, no distress noted. Bed in the lowest position. Side rails up x3. Will continue to monitor.
[2019-08-17] MEDS: Doxazosin 4mg tab GT SCH (20:10)
--- NOTE | 2019-08-17 20:18 | General Progress Note ---
Assessment/Plan Assessment/Plan: Assessment - GT migration out of stomach - Mushroom cap in anterior abdominal wall (GT removed) - Abdominal wall induration - improving, skin below prior GT site appears normal - anemia - OB (+) stools - no GI w/u per DPOA - Dark stools on PO Iron - s/p Trach Recommendations - PPI - NGT for meds and feeds - broad spectrum abx - follow exam and labs - transfuse as needed - d/c PO Iron ----> IV Fe - laxative, PRN - PEG placement in am Subjective Allergies: Coded Allergies: No Known Allergies (Unverified , 08/07/19) Subjective above noted NAD no events overnight Patient scheduled for PEG in am d/w surgery - may take weeks for abd wall infection / inflammation to recover d/w DPOA Lucille re challenges with PEG replacement Advised will aim to place PEG below prior GT site, since skin above GT site still inflamed DPOA understands increased PEG infectious complication risk, given recent GT site infection Objective Last 24 Hour Vital Signs Date Time Temp Pulse Resp B/P (MAP) Pulse Ox O2 Delivery O2 Flow Rate FiO2 08/17/19 20:00 97.9 85 24 139/80 (99) 99 08/17/19 20:00 40 08/17/19 20:00 Mechanical Ventilator Mechanical Ventilator 08/17/19 19:42 84 24 35 08/17/19 16:09 40 08/17/19 16:01 98.1 78 16 126/86 (99) 100 08/17/19 16:00 Mechanical Ventilator Mechanical Ventilator 08/17/19 16:00 75 08/17/19 15:08 77 24 35 08/17/19 12:00 40 08/17/19 12:00 98.0 69 15 150/90 (110) 100 08/17/19 12:00 63 08/17/19 12:00 Mechanical Ventilator Mechanical Ventilator 08/17/19 11:11 59 16 35 08/17/19 09:37 160/77 08/17/19 09:36 72 160/77 08/17/19 09:36 72 160/77 08/17/19 08:00 73 08/17/19 08:00 Mechanical Ventilator Mechanical Ventilator 08/17/19 08:00 97.7 72 20 160/77 (104) 100 08/17/19 08:00 40 08/17/19 07:21 70 16 35 08/17/19 04:00 Mechanical Ventilator Mechanical Ventilator 08/17/19 04:00 98.0 80 20 129/76 (93) 100 08/17/19 04:00 40 08/17/19 03:30 75 08/17/19 02:30 75 25 35 08/17/19 00:00 97.9 85 20 145/78 (100) 100 08/17/19 00:00 Mechanical Ventilator Mechanical Ventilator 08/17/19 00:00 40 08/16/19 23:39 83 08/16/19 22:30 75 27 35 08/16/19 20:40 102 154/85 08/16/19 20:37 154/85 Intake and Output 08/16/19 08/17/19 19:00 07:00 Intake Total 640 ml 820.0 ml Output Total 800 ml 500 ml Balance -160 ml 320.0 ml Free Water 100 ml 50 ml IV Total 110.0 ml Tube Feeding 540 ml 660 ml Output Urine Total 800 ml 500 ml # Bowel Movements 2 4 Height (Feet): 5 Height (Inches): 6.00 Weight (Pounds): 216 Objective Obese AA Man NCAT (+) Trach coarse BS RR Abd obese, some distention, GT site closed, still with induration above the GT site, drainage improved Area below GT site appears to have normal skin trace edema non interactive Rubia Hawk MD Aug 17, 2019 20:18
[2019-08-17] MEDS: D5 1/2NS 1,000 ML IV SCH (23:44)
[2019-08-18] VITALS: BP 148/72
--- NOTE | 2019-08-18 00:28 | NUR ---
NURSE NOTES: pt sleeping in the bed. No acute distress noted at this time. NPO since midnight. Reposition q2hr. Oral care given. Will continue to monitor.
[2019-08-18] MEDS: Piperacillin/Tazobactam 3.375 GM in NS 110 ML IVPB SCH ×3 (01:20→17:28)
[2019-08-18 04:00] VITALS: BP 148/82
[2019-08-18] MEDS ORDERED: fentaNYL 100 mcg/2 mL IV ONE (06:43)
[2019-08-18] MEDS ORDERED: Atropine Sulfate 0.4mg/ml inj ONE (06:43)
[2019-08-18] MEDS ORDERED: NS 500ML IVPB ONE (07:00)
--- NOTE | 2019-08-18 07:05 | General Progress Note ---
Assessment/Plan Assessment/Plan: Assessment - GT migration out of stomach - Mushroom cap in anterior abdominal wall (GT removed) - Abdominal wall induration - improving, skin below prior GT site appears normal - anemia - OB (+) stools - no GI w/u per DPOA - Dark stools on PO Iron - s/p Trach Recommendations - PPI - NGT for meds and feeds - broad spectrum abx - follow exam and labs - transfuse as needed - d/c PO Iron ----> IV Fe - laxative, PRN - PEG placement planned for today Subjective Allergies: Coded Allergies: No Known Allergies (Unverified , 08/07/19) Subjective above noted NAD no events overnight Patient scheduled for PEG today GT site with more induration superiorly Objective Last 24 Hour Vital Signs Date Time Temp Pulse Resp B/P (MAP) Pulse Ox O2 Delivery O2 Flow Rate FiO2 08/18/19 04:00 66 08/18/19 04:00 Mechanical Ventilator Mechanical Ventilator 08/18/19 04:00 40 08/18/19 04:00 97.8 67 24 148/82 (104) 100 08/18/19 04:00 83 08/18/19 02:59 75 17 35 08/18/19 00:00 40 08/18/19 00:00 67 08/18/19 00:00 Mechanical Ventilator Mechanical Ventilator 08/18/19 00:00 98.0 71 24 148/72 (97) 100 08/17/19 23:16 61 23 35 08/17/19 20:09 85 139/80 08/17/19 20:09 139/80 08/17/19 20:00 83 08/17/19 20:00 97.9 85 24 139/80 (99) 99 08/17/19 20:00 40 08/17/19 20:00 Mechanical Ventilator Mechanical Ventilator 08/17/19 19:42 84 24 35 08/17/19 16:09 40 08/17/19 16:01 98.1 78 16 126/86 (99) 100 08/17/19 16:00 Mechanical Ventilator Mechanical Ventilator 08/17/19 16:00 75 08/17/19 15:08 77 24 35 08/17/19 12:00 40 08/17/19 12:00 98.0 69 15 150/90 (110) 100 08/17/19 12:00 63 08/17/19 12:00 Mechanical Ventilator Mechanical Ventilator 08/17/19 11:11 59 16 35 08/17/19 09:37 160/77 08/17/19 09:36 72 160/77 08/17/19 09:36 72 160/77 08/17/19 08:00 73 08/17/19 08:00 Mechanical Ventilator Mechanical Ventilator 08/17/19 08:00 97.7 72 20 160/77 (104) 100 08/17/19 08:00 40 08/17/19 07:21 70 16 35 Intake and Output 08/17/19 08/18/19 19:00 07:00 Intake Total 800 ml 885 ml Output Total 550 ml 500 ml Balance 250 ml 385 ml Free Water 200 ml 100 ml IV Total 545 ml Tube Feeding 480 ml 240 ml Other 120 ml Output Urine Total 550 ml 500 ml # Bowel Movements 1 Height (Feet): 5 Height (Inches): 10.00 Weight (Pounds): 195 Objective Obese AA Man NCAT (+) Trach coarse BS RR Abd obese, some distention, GT site closed, more induration above the GT site Area below GT site appears to have normal skin trace edema non interactive Rubia Hawk MD Aug 18, 2019 07:05
--- NOTE | 2019-08-18 07:06 | Pre-Procedure Note/Attestation ---
Pre-Procedure Note/Attestation Complete Prior to Procedure Planned Procedure: not applicable Procedure Narrative: esophagogastroduodenoscopy PEG Indications for Procedure Pre-Operative Diagnosis: dysphagia Attestation I attest that I discussed the nature of the procedure; its benefits; risks and complications; and alternatives (and the risks and benefits of such alternatives ), prior to the procedure, with the patient (or the patient's legal senior outside sales representative). I attest that, if there was a reasonable possibility of needing a blood transfusion, the patient (or the patient's legal senior outside sales representative) was given the [facility] standardized written summary, pursuant to the [place] Blood Safety Act ([place] Health and Safety Code # 1645, as amended). I attest that I re-evaluated the patient just prior to the surgery and that there has been no change in the patient's H&P, except as documented below: Rubia Hawk MD Aug 18, 2019 07:06
--- NOTE | 2019-08-18 07:40 | NUR ---
HAND-OFF: Report given to KEHINDE Javier.
--- NOTE | 2019-08-18 07:40 | NUR ---
NURSE NOTES: Report received from Linsey Engel RN.Pt asleep noted no resp distress GI Lab team at bedside finishing up EGD procedure,pt with trach tube to vent ordered vent settings tolerated,no signs of discomfort or pain noted, NGT pulled out by pt,with wrist restraints to RT hand but LT hand is getting stronger,Thakkar cath draining yellow urine,skin warm and dry with IV site to RT hand ,IVF D5 1/2 NS at 75 ml/hr,SR up x2 hob,bed lock in lowest position,will continue with plans of care.
--- NOTE | 2019-08-18 07:47 | Endoscopy Procedure Note ---
Endoscopy Procedure Note General Indication for Procedure: GI Bleed, dysphagia - needs new GT Procedures Performed: EGD Operative Findings/Diagnosis: 30 cc of pus/clots massaged out of GT site, ulcerative gastritis,. No GT Specimen: yes Pt Tolerated Procedure Well: Yes Estimated Blood Loss: volume - 30 cc Anesthesia Anesthesiologist: Germaine Anesthesia: MAC Medications Medication Given: see anesthesia record Inserted Devices Implant(s) used?: No GI Core Measures 50 yrs or older w/o bx or poly: Not Applicable 10yrs. F/U recommended: Not Applicable Rubia Hawk MD Aug 18, 2019 07:47
--- NOTE | 2019-08-18 07:48 | Brief Operative Note ---
Immediate Post Operative Note Operative Note Chief Complaint: GIB, Dysphagia Pre-op Diagnosis: dysphagia Procedure: EGD, bx, EUA Surgeon: CHAUNCEY Anesthesiologist: see report Anesthesia: MAC Specimen: yes Complications: none Condition: stable Fluids: per anesthesia Estimated Blood Loss: volume - 30cc Implant(s) used?: No Rubia Hawk MD Aug 18, 2019 07:48
[2019-08-18 08:00] VITALS: BP 138/89
--- NOTE | 2019-08-18 08:00 | NUR ---
NURSE NOTES: NGT inserted to LT nare with a Metcalfe Sump tube,verified Placement with another RN,Amalia Charge nurse,will ordered KUB for confirmation.Dr Da Silva not able to insert GT yet since GT site is with puss.Per Dr Da Silva will insert GT again by next week.
--- NOTE | 2019-08-18 08:16 | Anethesia Preoperative Eval ---
Anesthesia Pre-op PMH/ROS General Date of Evaluation: Aug 18, 2019 Time of Evaluation: 06:55 Anesthesiologist: Sami ASA Score: ASA 4 Mallampati Score Class I : Soft palate, uvula, fauces, pillars visible Class II: Soft palate, uvula, fauces visible Class III: Soft palate, base of uvula visible Class IV: Only hard plate visible Mallampati Classification: Class III Surgeon: Mojgan Diagnosis: Dysplaced PEG tube Surgical Procedure: EGD PEG replacement Anesthesia History: none Family History: no anesthesia problems Allergies: Coded Allergies: No Known Allergies (Unverified , 08/07/19) Medications: see eMAR Patient NPO?: Yes Past Medical History Cardiovascular: Reports: HTN; Denies: CAD, [place], valve dz, arrhythmia, other Pulmonary: Reports: COPD, other - respiratory failure vent dependent, trach in place; Denies: asthma, SRAVAN Gastrointestinal/Genitourinary: Reports: CRI Neurologic/Psychiatric: Reports: dementia, CVA; Denies: depression/anxiety, TIA, other Endocrine: Reports: hypothyroidism; Denies: DM, steroids, other HEENT: Denies: cataract (L), cataract (R), glaucoma, [place] (L[place] (R), other Hematology/Immune: Reports: anemia - of chronic d-s; Denies: DVT, bleeding disorder, other Musculoskeletal/Integumentary: Reports: OA, other - chronic wound decubitus; Denies: RA, DJD, DDD, edema PMH Narrative: as above PSxH Narrative: see H&P Anesthesia Pre-op Phys. Exam Physician Exam Last Vital Signs Date Time Temp Pulse Resp B/P (MAP) Pulse Ox O2 Delivery O2 Flow Rate FiO2 08/18/19 07:24 78 18 35 08/18/19 04:00 Mechanical Ventilator Mechanical Ventilator 08/18/19 04:00 97.8 148/82 (104) 100 Constitutional: NAD Neurologic: other - unable to obtaine Cardiovascular: RRR Respiratory: other - diffuse wheezing and rhales bilateraly Gastrointestinal: other - some swelling and tenderness of anterior abd. wall, purulent discharge from old PEG entrance opening Airway Exam Mallampati Score: Class III MO: limited Neck: tracheostomy in place ROM: limited Teeth: missing Dentures: no upper, no lower Anesthesia Pre-op A/P Labs see chart Risk Assessment & Plan Assessment: ASA 4 Plan: MAC Status Change Before Surgery: No Pre-Antibiotics Drug: Ancef 1gr. Given Within 1 Hr of Incision: Yes Time Given: 07:10 Toan Gallardo MD Aug 18, 2019 08:16
--- NOTE | 2019-08-18 08:37 | Immediate Post-Op Evaluation ---
Immediate Post-Op Evalulation Immediate Post-Op Evalulation Procedure: EGD Date of Evaluation: Aug 18, 2019 Time of Evaluation: 07:26 IV Fluids: 200 Blood Products: none Estimated Blood Loss: none Urinary Output: none Blood Pressure Systolic: 148 Blood Pressure Diastolic: 76 Pulse Rate: 72 Respiratory Rate: 20 O2 Sat by Pulse Oximetry: 99 Temperature (Fahrenheit): 97.6 Pain Score (1-10): 1 Nausea: No Vomiting: No Complications none Patient Status: reacts, ventilated, none Hydration Status: adequate Toan Gallardo MD Aug 18, 2019 08:37
--- NOTE | 2019-08-18 08:38 | 48 Hour Post Anesthesia Eval ---
Post Anesthesia Evaluation Procedure: EGD Date of Evaluation: Aug 18, 2019 Time of Evaluation: 08:37 Blood Pressure Systolic: 148 0: 72 Pulse Rate: 76 Respiratory Rate: 18 Temperature (Fahrenheit): 97.4 O2 Sat by Pulse Oximetry: 98 Airway: patent Nausea: No Vomiting: No Pain Intensity: 1 Hydration Status: adequate Cardiopulmonary Status: stable Mental Status/LOC: patient returned to baseline Follow-up Care/Observations: n/a Post-Anesthesia Complications: none Follow-up care needed: N/A Toan Gallardo MD Aug 18, 2019 08:38
--- NOTE | 2019-08-18 08:54 | Pulmonology Progress Note ---
Subjective ROS Limited/Unobtainable: Yes Constitutional: Denies: fever Allergies: Coded Allergies: No Known Allergies (Unverified , 08/07/19) Subjective remains ill dc planning on hold vitals better GT not placed low HH Objective Last 24 Hour Vital Signs Date Time Temp Pulse Resp B/P (MAP) Pulse Ox O2 Delivery O2 Flow Rate FiO2 08/18/19 08:38 76 18 98 08/18/19 08:37 72 20 99 08/18/19 07:24 78 18 35 08/18/19 04:00 66 08/18/19 04:00 Mechanical Ventilator Mechanical Ventilator 08/18/19 04:00 40 08/18/19 04:00 97.8 67 24 148/82 (104) 100 08/18/19 04:00 83 08/18/19 02:59 75 17 35 08/18/19 00:00 40 08/18/19 00:00 67 08/18/19 00:00 Mechanical Ventilator Mechanical Ventilator 08/18/19 00:00 98.0 71 24 148/72 (97) 100 08/17/19 23:16 61 23 35 08/17/19 20:09 85 139/80 08/17/19 20:09 139/80 08/17/19 20:00 83 08/17/19 20:00 97.9 85 24 139/80 (99) 99 08/17/19 20:00 40 08/17/19 20:00 Mechanical Ventilator Mechanical Ventilator 08/17/19 19:42 84 24 35 08/17/19 16:09 40 08/17/19 16:01 98.1 78 16 126/86 (99) 100 08/17/19 16:00 Mechanical Ventilator Mechanical Ventilator 08/17/19 16:00 75 08/17/19 15:08 77 24 35 08/17/19 12:00 40 08/17/19 12:00 98.0 69 15 150/90 (110) 100 08/17/19 12:00 63 08/17/19 12:00 Mechanical Ventilator Mechanical Ventilator 08/17/19 11:11 59 16 35 08/17/19 09:37 160/77 08/17/19 09:36 72 160/77 08/17/19 09:36 72 160/77 Intake and Output 08/17/19 08/18/19 19:00 07:00 Intake Total 800 ml 885 ml Output Total 550 ml 500 ml Balance 250 ml 385 ml Free Water 200 ml 100 ml IV Total 545 ml Tube Feeding 480 ml 240 ml Other 120 ml Output Urine Total 550 ml 500 ml # Bowel Movements 1 Objective WDWN trach reduced breath sounds bilaterally without rhonchi or wheeze [id number] without MRG NABS nontender no CCE reduced LOC Current Medications Medications (Trade) Dose Ordered Sig/Nury Route PRN Reason Start Time Stop Time Status Last Admin Dose Admin Acetaminophen (Tylenol) 325 mg Q6H PRN RECTAL Temp >100.5 08/08/19 21:45 09/07/19 21:44 Acetaminophen (Tylenol) 650 mg Q4H PRN GT Mild Pain (Pain Scale 1-3) 08/08/19 10:45 09/07/19 10:44 Acetaminophen (Tylenol) 650 mg Q4H PRN GT Temp >100.5 08/08/19 10:45 09/07/19 10:44 Amantadine HCl (Symmetrel) 100 mg DAILY GT 08/09/19 09:00 09/08/19 08:59 08/17/19 09:37 Amlodipine Besylate (Norvasc) 5 mg DAILY GT 08/10/19 09:00 09/09/19 08:59 08/17/19 09:36 Ascorbic Acid (Vitamin C) 250 mg DAILY GT 08/09/19 09:00 09/08/19 08:59 08/17/19 09:35 Dextrose/Sodium Chloride 1,000 ml @ 75 mls/hr [id number] IV 08/17/19 23:59 09/16/19 23:58 08/17/19 23:44 Doxazosin Mesylate (Cardura) 2 mg QHS GT 08/08/19 21:00 09/07/19 20:59 08/17/19 20:10 Folic Acid (Folate) 1 mg DAILY GT 08/08/19 14:30 09/07/19 14:29 08/17/19 09:35 Heparin Sodium (Porcine) (Heparin 5000 units/ml) 5,000 units EVERY 12 HOURS SUBQ 08/08/19 21:00 09/22/19 20:59 08/17/19 09:54 Hydralazine HCl (Apresoline) 10 mg Q6H PRN IV SBP> 160 08/08/19 21:45 11/06/19 21:44 Lisinopril (PriniviL) 20 mg Q12HR GT 08/08/19 21:00 09/07/19 20:59 08/17/19 20:09 Metoprolol Tartrate (Lopressor) 25 mg Q12HR GT 08/09/19 09:00 11/07/19 08:59 08/17/19 20:09 Multivitamins (Multivitamins) 1 tab DAILY GT 08/09/19 09:00 09/08/19 08:59 08/17/19 09:36 Pantoprazole (Protonix) 40 mg EVERY 12 HOURS IVP 08/09/19 23:00 09/08/19 22:59 08/17/19 20:09 Piperacillin Sod/ Tazobactam Sod 3.375 gm/Sodium Chloride 110 ml @ 27.5 mls/hr Q8H IVPB 08/12/19 02:00 08/19/19 01:59 08/18/19 01:20 Assessment/Plan Assessment/Plan anemia possible GIB sinus tachycardia respiratory failure trach chronic encephalopathy GT site infection low K fevers better severe protein calorie malnutrition PLAN dc planning once gt placed vent support feeds per gi GT placement next week I&D if needed monitor HH complete antibiotics discuss with consultants as to disposition impression, plan, and exam edited and reviewed in detail care discussed with Isaiah Villatoro MD Aug 18, 2019 08:54
[2019-08-18] MEDS: Pantoprazole Inj IVP SCH ×2 (08:59→20:32)
[2019-08-18] MEDS: Amantadine 100mg cap GT SCH (09:00)
[2019-08-18] MEDS: Lisinopril 20mg tab GT SCH ×2 (09:00→20:32)
[2019-08-18] MEDS: Ascorbic Acid 500mg tab GT SCH (09:00)
[2019-08-18] MEDS: Heparin 5000 units/ml inj SUBQ SCH ×2 (09:01→20:33)
--- NOTE | 2019-08-18 09:35 | NUR ---
RADIOLOGY DEPT., ABDOMEN X-RAY FOR NGT COMPLETED.-P.DYE
--- NOTE | 2019-08-18 10:53 | NUR ---
*-* INSURANCE *-* UPDATED CLINICALS HAVE BEEN FAXED TO: [facility] REF# [id number] COCOM:NICHOLAS [phone] P: [phone] F: [phone] AFTER HOURS # [phone]
--- NOTE | 2019-08-18 10:57 | Infectious Diseases Prog Note ---
"Assessment/Plan Assessment/Plan antibiotics : zosyn A 1. pseudomonas | providencia pneumonia COVID negative x 2 2. klebsiella | pseudomonas | VRE Gt site cellulitis 3. respiratory failure 4. leucocytosis improving P 1. continue zosyn 1 more day 2. will follow up cultures Subjective ROS Limited/Unobtainable: Yes Allergies: Coded Allergies: No Known Allergies (Unverified , 08/07/19) Objective Vital Signs Last 24 Hour Vital Signs Date Time Temp Pulse Resp B/P (MAP) Pulse Ox O2 Delivery O2 Flow Rate FiO2 08/18/19 10:51 70 16 35 08/18/19 09:00 76 148/72 08/18/19 09:00 76 148/72 08/18/19 09:00 148/72 08/18/19 08:38 76 18 98 08/18/19 08:37 72 20 99 08/18/19 08:00 35 08/18/19 08:00 97.9 66 24 138/89 (105) 100 08/18/19 07:46 71 08/18/19 07:24 78 18 35 08/18/19 04:00 66 08/18/19 04:00 Mechanical Ventilator Mechanical Ventilator 08/18/19 04:00 40 08/18/19 04:00 97.8 67 24 148/82 (104) 100 08/18/19 04:00 83 08/18/19 02:59 75 17 35 08/18/19 00:00 40 08/18/19 00:00 67 08/18/19 00:00 Mechanical Ventilator Mechanical Ventilator 08/18/19 00:00 98.0 71 24 148/72 (97) 100 08/17/19 23:16 61 23 35 08/17/19 20:09 85 139/80 08/17/19 20:09 139/80 08/17/19 20:00 83 08/17/19 20:00 97.9 85 24 139/80 (99) 99 08/17/19 20:00 40 08/17/19 20:00 Mechanical Ventilator Mechanical Ventilator 08/17/19 19:42 84 24 35 08/17/19 16:09 40 08/17/19 16:01 98.1 78 16 126/86 (99) 100 08/17/19 16:00 Mechanical Ventilator Mechanical Ventilator 08/17/19 16:00 75 08/17/19 15:08 77 24 35 08/17/19 12:00 40 08/17/19 12:00 98.0 69 15 150/90 (110) 100 08/17/19 12:00 63 08/17/19 12:00 Mechanical Ventilator Mechanical Ventilator 08/17/19 11:11 59 16 35 Height (Feet): 5 Height (Inches): 10.00 Weight (Pounds): 195 HEENT: status post trach Respiratory/Chest: lungs clear Cardiovascular: normal rate, regular rhythm, no gallop/murmur Abdomen: soft, non tender, other - GT site with decreased drainage Extremities: no edema Current Medications Medications (Trade) Dose Ordered Sig/Nury Route PRN Reason Start Time Stop Time Status Last Admin Dose Admin Acetaminophen (Tylenol) 325 mg Q6H PRN RECTAL Temp >100.5 08/08/19 21:45 09/07/19 21:44 Acetaminophen (Tylenol) 650 mg Q4H PRN GT Mild Pain (Pain Scale 1-3) 08/08/19 10:45 09/07/19 10:44 Acetaminophen (Tylenol) 650 mg Q4H PRN GT Temp >100.5 08/08/19 10:45 09/07/19 10:44 Amantadine HCl (Symmetrel) 100 mg DAILY GT 08/09/19 09:00 09/08/19 08:59 08/17/19 09:37 Amlodipine Besylate (Norvasc) 5 mg DAILY GT 08/10/19 09:00 09/09/19 08:59 08/17/19 09:36 Ascorbic Acid (Vitamin C) 250 mg DAILY GT 08/09/19 09:00 09/08/19 08:59 08/17/19 09:35 Dextrose/Sodium Chloride 1,000 ml @ 75 mls/hr [id number] IV 08/17/19 23:59 09/16/19 23:58 08/17/19 23:44 Doxazosin Mesylate (Cardura) 2 mg QHS GT 08/08/19 21:00 09/07/19 20:59 08/17/19 20:10 Folic Acid (Folate) 1 mg DAILY GT 08/08/19 14:30 09/07/19 14:29 08/17/19 09:35 Heparin Sodium (Porcine) (Heparin 5000 units/ml) 5,000 units EVERY 12 HOURS SUBQ 08/08/19 21:00 09/22/19 20:59 08/18/19 09:01 Hydralazine HCl (Apresoline) 10 mg Q6H PRN IV SBP> 160 08/08/19 21:45 11/06/19 21:44 Lisinopril (PriniviL) 20 mg Q12HR GT 08/08/19 21:00 09/07/19 20:59 08/17/19 20:09 Metoprolol Tartrate (Lopressor) 25 mg Q12HR GT 08/09/19 09:00 11/07/19 08:59 08/17/19 20:09 Multivitamins (Multivitamins) 1 tab DAILY GT 08/09/19 09:00 09/08/19 08:59 08/17/19 09:36 Pantoprazole (Protonix) 40 mg EVERY 12 HOURS IVP 08/09/19 23:00 09/08/19 22:59 08/18/19 08:59 Piperacillin Sod/ Tazobactam Sod 3.375 gm/Sodium Chloride 110 ml @ 27.5 mls/hr Q8H IVPB 08/12/19 02:00 08/19/19 01:59 08/18/19 09:04 Jude Ochoa MD Aug 18, 2019 10:57"
[2019-08-18 12:00] VITALS: BP 139/74
--- NOTE | 2019-08-18 12:00 | NUR ---
NURSE NOTES: Oral care done,tracheal/oral secretions suctioned PRN,Pulled up turned and repositioned.
--- NOTE | 2019-08-18 12:03 | NUR ---
RD ASSESSMENT & RECOMMENDATIONS SEE CARE ACTIVITY FOR COMPLETE ASSESSMENT DAILY ESTIMATED NEEDS: Needs based on Critical care, wound 79gk 22-28 kcals/kg 6524-0645 total kcals 1.25-2 g protein/kg 99-158 g total protein 25-30 mL/kg 4923-2867 total fluid mLs NUTRITION DIAGNOSIS: Increased pro needs r/t wound healing as evidenced by pt w/ multiple wounds, refer to WC nurse eval, trach and peg dep, needs GT replacement, on NGT feeding for now. CURRENT TF:NPO ENTERAL NUTRITION RECOMMENDATIONS: Jevity 1.2 @ 65ml/hr x 24 hrs to provide 1560ml, 1872kcal, 86g prot, 1257ml free water - Initiate Jevity 1.2 @ 25ml/hr x 6hrs, advance 10ml q 4-6 hrs as tolerated to goal rate - Add PROSOURCE BID (22g pro) to better meet est pro needs. - Flush per MD. HOB over 30 degrees With consistently elev BGs, rec carb controlled TF formula of Glucerna 1.2 @ 65ml/hr x 24 hrs + Prosource 1pkt daily to provide 1560ml, 1872kcal, 94+11 g prot ADDITIONAL RECOMMENDATIONS: 1) Per SNF: 5'11" and 174 lbs 2) Wound care: add JANE BID via TF + Zn SO4 220 mg qd x10 days 3) Maintain calibrated bed scale wts 4) Monitor lytes, replete as needed K) .
--- NOTE | 2019-08-18 12:17 | NUR ---
CASE MANAGEMENT:REVIEW SI;PSEUDOMONAS/PROVIDENCIA PNEUMONIA. KLEBSIELLA/PSEUDOMONAS/VRE G-TUBE INFECTION. 98.0 83 24 148/82 100% TRACH/VENT FIO2 @ 35% IS;IVF D5W @ 75 ML/HR ZOSYN IV Q8 PROTONIX IV Q12 AMANTADINE GT QD LOPRESSOR GT Q12 DOXAZOSIN GT QHS HEPARIN SUBQ Q12 LISINOPRIL GT Q12 EGD W/PEG PLACEMENT JACKY STATUS DCP;PATIENT IS FROM [facility]
--- NOTE | 2019-08-18 13:20 | Diagnostic Imaging Report ---
Indication: Is a gastric intubation Technique: XRAY Abdomen 1v Comparison: 08/11/2019 Findings: Satisfactory positioning of nasogastric tube with the tip in the stomach. Bowel gas pattern is nonspecific. No differential air-fluid levels are identified. No definite evidence to suggest free intraperitoneal air however sensitivity in evaluation for such is limited without inclusion of an erect/standing view. There are degenerative changes in the spine. Impression: Satisfactory positioning of NG tube.
--- NOTE | 2019-08-18 14:22 | Surgery Progress Note ---
Surgery Progress Note Subjective Additional Comments peg cancelled as there was drainage noted once patient made comfortable with anesthesia drained and dressings reapplied plan for peg this coming week after local wound care continued ng in place Objective Last 24 Hour Vital Signs Date Time Temp Pulse Resp B/P (MAP) Pulse Ox O2 Delivery O2 Flow Rate FiO2 08/18/19 12:00 Mechanical Ventilator Mechanical Ventilator 08/18/19 12:00 35 08/18/19 12:00 97.2 74 24 139/74 (95) 100 08/18/19 10:51 70 16 35 08/18/19 09:00 76 148/72 08/18/19 09:00 76 148/72 08/18/19 09:00 148/72 08/18/19 08:38 76 18 98 08/18/19 08:37 72 20 99 08/18/19 08:00 35 08/18/19 08:00 Mechanical Ventilator Mechanical Ventilator 08/18/19 08:00 97.9 66 24 138/89 (105) 100 08/18/19 07:46 71 08/18/19 07:24 78 18 35 08/18/19 04:00 66 08/18/19 04:00 Mechanical Ventilator Mechanical Ventilator 08/18/19 04:00 40 08/18/19 04:00 97.8 67 24 148/82 (104) 100 08/18/19 04:00 83 08/18/19 02:59 75 17 35 08/18/19 00:00 40 08/18/19 00:00 67 08/18/19 00:00 Mechanical Ventilator Mechanical Ventilator 08/18/19 00:00 98.0 71 24 148/72 (97) 100 08/17/19 23:16 61 23 35 08/17/19 20:09 85 139/80 08/17/19 20:09 139/80 08/17/19 20:00 83 08/17/19 20:00 97.9 85 24 139/80 (99) 99 08/17/19 20:00 40 08/17/19 20:00 Mechanical Ventilator Mechanical Ventilator 08/17/19 19:42 84 24 35 08/17/19 16:09 40 08/17/19 16:01 98.1 78 16 126/86 (99) 100 08/17/19 16:00 Mechanical Ventilator Mechanical Ventilator 08/17/19 16:00 75 08/17/19 15:08 77 24 35 I&O Intake and Output 08/17/19 08/18/19 19:00 07:00 Intake Total 800 ml 885 ml Output Total 550 ml 500 ml Balance 250 ml 385 ml Free Water 200 ml 100 ml IV Total 545 ml Tube Feeding 480 ml 240 ml Other 120 ml Output Urine Total 550 ml 500 ml # Bowel Movements 1 Dressing: saturated, other Wound: clean Cardiovascular: RSR Respiratory: clear, decreased breath sounds Abdomen: soft, non-tender, present bowel sounds, other Extremities: no tenderness, no cyanosis Plan Problems: (1) Anemia (2) Unstageable decubitus ulcer Assessment & Plan: Pt presented on admission with multiple Pressure Injuries. Pt has a Tracheostomy and no areas of skin concerns noted under tracheal collar. Unstageable Sacral Pressure Injury(L)9.5cm x (W)10cm. Base of wound is 75% mixed slough and eschar,25% carolynn, Edges adherent with surrounding purple and maroon indurated borders. No odor or exudate noted. DTPI L Heel (L)3.7cm x (W)4.5cm. Base of wound is maroon and indurated with surrounding non-Blanching erythema. Callused skin periwound. Reabsorbing DTPI [place] L Foot (L)3.3cm x (W)2.5cm. Base of Pressure Injury is maroon but dry. No erythema or fluctuance periwound. DTPI Lateral L 1st metatarsal(L)1.5cm x (W)2cm. Base of wound is maroon and indurated.Callused skin periwound. DTPI Lateral R Heel (L)4.4cm x (W)6cm. Base of wound is indurated ,purple with surrounding maroon and fluctuant borders.Callusing periwound. DTPI R Hallux (L)1.8cm x (W)1.9cm. Base of wound is indurated and purple. Callusing periwound. DTPI Lateral R 1st metatarsal(L)2cm x (W)2.7cm. Base of wound is indurated and maroon. Callusing periwound. Tx.Plan: Cleanse Sacral wound with Saline. Apply TheraHoney. Apply Moisture Barrier Paste periwound. Cover with Optifoam drsg. Change every 3 days and prn. Apply Cavilon Skin Barrier to wounds L L Heel , L st metatarsal,Dorsal L Foot. Cover each Site with Optifoam drsg. Change every 7 days and prn. Apply Cavilon Skin Barrier to R Heel, R Hallux, R 1st metatarsal. Cover each site with Optifoam drsg. Change every 7 days and prn. APM/KHOA Mattress. Reposition at least every 2hours or as tolerated. Off-Load Heels with Pillows. (3) Leaking PEG tube Assessment & Plan: prior peg removed plan new placement soon will monitor site drainage noted packing placed Minimal drainage from prior G-tube site discussed with nursing about packing and dressings will continue current care plan plan for PEG tube once improved Lung bases: Atelectasis at the lung bases. Liver: Unremarkable. No mass. Gallbladder and bile ducts: Unremarkable. No calcified stones. No ductal dilation. Pancreas: Unremarkable. No mass. No ductal dilation. Spleen: Unremarkable. No splenomegaly. Adrenals: Unremarkable. No mass. Kidneys and ureters: Nonobstructing stone in the lower pole of the right kidney. Stomach and bowel: Tract from a recent percutaneous gastrostomy tube which is healing in the subcutaneous fat. Surrounding inflammatory changes but no abscess. Severe colonic diverticulosis within the sigmoid colon with mural hypertrophy however no surrounding inflammatory changes to suggest acute diverticulitis. Underlying malignancy not excluded. No obstruction. Intraperitoneal space: Unremarkable. No free air. No significant fluid collection. Bones/joints: No acute fracture. No dislocation. Soft tissues: Fat stranding in the ventral abdomen. Vasculature: Unremarkable. No abdominal aortic aneurysm. Lymph nodes: Unremarkable. No enlarged lymph nodes. Tubes, lines and devices: Thakkar catheter within the bladder. IMPRESSION: 1. Severe colonic diverticulosis within the sigmoid colon with mural hypertrophy however no surrounding inflammatory changes to suggest acute diverticulitis. Underlying malignancy not excluded. 2. Tract from a recent percutaneous gastrostomy tube which is healing in the subcutaneous fat. Surrounding inflammatory changes but no abscess. (4) Person under investigation for COVID-19 Assessment & Plan: There is a tracheostomy. Calcified granuloma is seen in the right midlung. Granulomatous calcified nodes are seen in the left aortopulmonary window. No definite infiltrates, effusions, congestion. The heart size is upper limits normal. Impression: No definite acute abnormality Evidence of old granulomatous disease Homero Cummings Aug 18, 2019 14:22
[2019-08-18] MEDS: D5 1/2NS 1,000 ML IV SCH (15:49)
[2019-08-18 16:00] VITALS: BP 150/87
--- NOTE | 2019-08-18 16:00 | NUR ---
NURSE NOTES: GT site drained of serosanguinous puss by applying pressure,covered by 4x4 dry dressing.
[2019-08-18] MEDS ORDERED: Tubing IV Secondary IV ONE ×2 (16:54→17:23)
[2019-08-18] MEDS ORDERED: NS 275ml ONE ×2 (16:54→17:23)
[2019-08-18] MEDS ORDERED: D5 1/2NS 1000ml IV ONE ×2 (16:54→17:23)
--- NOTE | 2019-08-18 18:00 | NUR ---
NURSE NOTES: Pt resting in bed asleep noted no resp ,stable V/S.
--- NOTE | 2019-08-18 19:20 | NUR ---
HAND-OFF: Report given to Linsey Engel RN.
--- NOTE | 2019-08-18 19:30 | NUR ---
NURSE NOTES: Report received from KEHINDE Javier. Observed pt lying in the bed. SR noted. Trac to vent, Portex 8, AC 14, TV 450, 35%, PEEP 5, sat at 99%, tolerating well. NGT on L nares, 20 cc residual noted, flushing well. GT dressing intact, will be changed q8hr. F/C intact and draining well. IV on R H 20G, asymptomatic. Bed in the lowest position. Side rails up x3. Will continue to monitor.
[2019-08-18 20:00] VITALS: BP 148/78
[2019-08-18] MEDS: Doxazosin 4mg tab GT SCH (20:32)
[2019-08-19] VITALS: BP 137/78
--- NOTE | 2019-08-19 00:48 | NUR ---
NURSE NOTES: pt sleeping in the bed. No acute distress noted at this time. SR noted. Tolerating current vent setting. Tolerating tube feeding. Reposition done q2hr. Oral care given. Will continue to monitor.
--- NOTE | 2019-08-19 02:30 | Operative Note - Dictated ---
DATE OF OPERATION: 08/18/2019 GASTROENTEROLOGY PROCEDURE REPORT PROCEDURE: Upper gastrointestinal endoscopy with biopsy as well as attempted gastrostomy tube placement and examination under anesthesia. SURGEON: Rubia Hawk MD. ANESTHESIOLOGIST: Toan Gallardo MD. PRE-ENDOSCOPIC DIAGNOSES: 1. Gastrointestinal bleeding. 2. Dysphagia. 3. Gastrostomy tube complication. POST-ENDOSCOPIC DIAGNOSES: 1. Significant purulent drainage from the gastrostomy site found during the examination under anesthesia. 2. Ulcerative gastritis without active bleeding. 3. Gastrostomy placement not attempted. DESCRIPTION OF PROCEDURE: The procedure, its risks, indications, alternatives, and possible complications including but not limited to bleeding, infection, perforation, , and anesthesia complications were explained to the patient's power of insurance attorney and an informed consent was obtained. The patient was then sedated in supine position and the area that was superior to the previous gastrostomy tube was manipulated and massaged. There was at least 30 mL of purulent material as well as blood clots to be extruded from the gastrostomy site with gentle lowering of the indurated mass. The indurated mass was approximately 12 to 15 cm in length. The material that came out of the site was eventually just bloody and the most appearance was just . At this juncture, the dressing was applied and a diagnostic upper endoscope was introduced through oropharynx and advanced to the duodenum without difficulty. The endoscope was then gradually withdrawn. The mucosa examined carefully. Examination of the upper gastrointestinal mucosa revealed ulcerative gastritis with multiple shallow small stellate ulcers throughout the stomach. Biopsies were sent to pathology for review. The location for placement of the gastrostomy tube was identified by palpation and transillumination techniques. This was for future use. Under current examination, the gastrostomy tube was not attempted given the purulence seen prior to inserting the endoscope. The endoscope was removed. The patient was left to recovery in good condition. ASSESSMENT: This patient has ulcerative gastritis, which explains the recent bleeding. Usually resolves with proton pump inhibitor therapy. Biopsies will be evaluated and Helicobacter pylori should be treated if positive. The gastrostomy tube is not attempted in this examination due to the degree of purulence seen just above the previous gastrostomy site. Some more aggressive wound care will be attempted in the next few days and the gastrostomy tube can be re-attempted next week. There is fortunately window for the gastrostomy tube placement approximately 5 to 7 cm below the current gastrostomy site, which would be infection. RECOMMENDATIONS: 1. Resume tube feeding. 2. Aggressive wound care. 3. Antibiotics. 4. Re-evaluate for gastrostomy tube placement next week. 5. Check and treat Helicobacter pylori if positive. Rubia Hawk M.D. DR: JAE JOB#: [id number] CC:
[2019-08-19 04:00] VITALS: BP 140/70
--- NOTE | 2019-08-19 07:22 | NUR ---
HAND-OFF: Report given to KEHINDE Javier.
--- NOTE | 2019-08-19 07:25 | NUR ---
NURSE NOTES: Report received from Linsey Engel RN.Pt resting in bed asleep noted no resp distress with trach tube to vent,ordered vent settings tolerated,no signs of pain or discomfort SR on the monitor,NGT feeding Osmolite 1.5 at 60 ml/hr,no residual noted in placed per auscultation,Folry cath draining yellow urine,IV heplock to RH intact intact,skin warm and dry ,SR up x2 HOB elevated,bed locked in lowest position will continue with plans of care.
[2019-08-19 08:00] VITALS: BP 144/73
[2019-08-19] MEDS: Ascorbic Acid 500mg tab GT SCH (09:46)
[2019-08-19] MEDS: Pantoprazole Inj IVP SCH ×2 (09:48→20:56)
[2019-08-19] MEDS: Lisinopril 20mg tab GT SCH ×2 (09:49→20:56)
[2019-08-19] MEDS: Amantadine 100mg cap GT SCH (09:49)
[2019-08-19] MEDS: Heparin 5000 units/ml inj SUBQ SCH ×2 (09:52→20:59)
--- NOTE | 2019-08-19 10:18 | General Progress Note ---
Assessment/Plan Assessment/Plan: Assessment - GT migration out of stomach - Mushroom cap in anterior abdominal wall (GT removed) - Abdominal wall purulent dc - anemia - OB (+) stools - due to ulcerative gastritis, no colonoscopy per DPOA - s/p Trach Recommendations - PPI - NGT for meds and feeds - broad spectrum abx - follow exam and labs - transfuse as needed - d/c PO Iron ----> IV Fe - laxative, PRN - PEG placement planned for next week Subjective Allergies: Coded Allergies: No Known Allergies (Unverified , 08/07/19) Subjective above noted NAD d/w RN re GT site care Objective Last 24 Hour Vital Signs Date Time Temp Pulse Resp B/P (MAP) Pulse Ox O2 Delivery O2 Flow Rate FiO2 08/19/19 09:49 69 144/73 08/19/19 09:49 144/73 08/19/19 09:46 69 144/73 08/19/19 08:32 69 08/19/19 08:00 35 08/19/19 08:00 98.1 65 22 144/73 (96) 100 08/19/19 08:00 Mechanical Ventilator Mechanical Ventilator 08/19/19 07:05 82 22 35 08/19/19 04:00 35 08/19/19 04:00 Mechanical Ventilator Mechanical Ventilator 08/19/19 04:00 97.5 67 22 140/70 (93) 100 08/19/19 04:00 71 08/19/19 03:19 64 22 35 08/19/19 00:00 75 08/19/19 00:00 97.5 67 24 137/78 (97) 100 08/19/19 00:00 35 08/19/19 00:00 Mechanical Ventilator Mechanical Ventilator 08/18/19 23:04 87 29 35 08/18/19 20:32 88 148/78 08/18/19 20:32 148/78 08/18/19 20:00 Mechanical Ventilator Mechanical Ventilator 08/18/19 20:00 35 08/18/19 20:00 88 08/18/19 20:00 97.2 72 24 148/78 (101) 100 08/18/19 18:39 85 23 35 08/18/19 16:09 35 08/18/19 16:01 Mechanical Ventilator Mechanical Ventilator 08/18/19 16:00 70 08/18/19 16:00 97.0 74 24 150/87 (108) 100 08/18/19 15:30 88 29 35 08/18/19 12:00 Mechanical Ventilator Mechanical Ventilator 08/18/19 12:00 35 08/18/19 12:00 97.2 74 24 139/74 (95) 100 08/18/19 12:00 70 08/18/19 10:51 70 16 35 Intake and Output 08/18/19 08/19/19 19:00 07:00 Intake Total 1240 ml 750 ml Output Total 650 ml 500 ml Balance 590 ml 250 ml Free Water 200 ml 90 ml IV Total 860 ml Tube Feeding 180 ml 660 ml Output Urine Total 650 ml 500 ml # Bowel Movements 2 2 Height (Feet): 5 Height (Inches): 10.00 Weight (Pounds): 216 Objective Obese AA Man NCAT (+) Trach coarse BS RR Abd obese, some distention, GT site closed, more induration above the GT site. ( +) 5 cc purulent d/c with manipulation trace edema non interactive Rubia Hawk MD Aug 19, 2019 10:18
--- NOTE | 2019-08-19 10:33 | Pulmonology Progress Note ---
Subjective ROS Limited/Unobtainable: Yes Constitutional: Denies: fever Allergies: Coded Allergies: No Known Allergies (Unverified , 08/07/19) Subjective remains ill dc planning on hold vitals noted Objective Last 24 Hour Vital Signs Date Time Temp Pulse Resp B/P (MAP) Pulse Ox O2 Delivery O2 Flow Rate FiO2 08/19/19 09:49 69 144/73 08/19/19 09:49 144/73 08/19/19 09:46 69 144/73 08/19/19 08:32 69 08/19/19 08:00 35 08/19/19 08:00 98.1 65 22 144/73 (96) 100 08/19/19 08:00 Mechanical Ventilator Mechanical Ventilator 08/19/19 07:05 82 22 35 08/19/19 04:00 35 08/19/19 04:00 Mechanical Ventilator Mechanical Ventilator 08/19/19 04:00 97.5 67 22 140/70 (93) 100 08/19/19 04:00 71 08/19/19 03:19 64 22 35 08/19/19 00:00 75 08/19/19 00:00 97.5 67 24 137/78 (97) 100 08/19/19 00:00 35 08/19/19 00:00 Mechanical Ventilator Mechanical Ventilator 08/18/19 23:04 87 29 35 08/18/19 20:32 88 148/78 08/18/19 20:32 148/78 08/18/19 20:00 Mechanical Ventilator Mechanical Ventilator 08/18/19 20:00 35 08/18/19 20:00 88 08/18/19 20:00 97.2 72 24 148/78 (101) 100 08/18/19 18:39 85 23 35 08/18/19 16:09 35 08/18/19 16:01 Mechanical Ventilator Mechanical Ventilator 08/18/19 16:00 70 08/18/19 16:00 97.0 74 24 150/87 (108) 100 08/18/19 15:30 88 29 35 08/18/19 12:00 Mechanical Ventilator Mechanical Ventilator 08/18/19 12:00 35 08/18/19 12:00 97.2 74 24 139/74 (95) 100 08/18/19 12:00 70 08/18/19 10:51 70 16 35 Intake and Output 08/18/19 08/19/19 19:00 07:00 Intake Total 1240 ml 750 ml Output Total 650 ml 500 ml Balance 590 ml 250 ml Free Water 200 ml 90 ml IV Total 860 ml Tube Feeding 180 ml 660 ml Output Urine Total 650 ml 500 ml # Bowel Movements 2 2 Objective WDWN trach reduced breath sounds bilaterally without rhonchi or wheeze [id number] without MRG NABS nontender no CCE reduced LOC Current Medications Medications (Trade) Dose Ordered Sig/Nury Route PRN Reason Start Time Stop Time Status Last Admin Dose Admin Acetaminophen (Tylenol) 325 mg Q6H PRN RECTAL Temp >100.5 08/08/19 21:45 09/07/19 21:44 Acetaminophen (Tylenol) 650 mg Q4H PRN GT Mild Pain (Pain Scale 1-3) 08/08/19 10:45 09/07/19 10:44 Acetaminophen (Tylenol) 650 mg Q4H PRN GT Temp >100.5 08/08/19 10:45 09/07/19 10:44 Amantadine HCl (Symmetrel) 100 mg DAILY GT 08/09/19 09:00 09/08/19 08:59 08/19/19 09:49 Amlodipine Besylate (Norvasc) 5 mg DAILY GT 08/10/19 09:00 09/09/19 08:59 08/19/19 09:49 Ascorbic Acid (Vitamin C) 250 mg DAILY GT 08/09/19 09:00 09/08/19 08:59 08/19/19 09:46 Doxazosin Mesylate (Cardura) 2 mg QHS GT 08/08/19 21:00 09/07/19 20:59 08/18/19 20:32 Folic Acid (Folate) 1 mg DAILY GT 08/08/19 14:30 09/07/19 14:29 08/19/19 09:48 Heparin Sodium (Porcine) (Heparin 5000 units/ml) 5,000 units EVERY 12 HOURS SUBQ 08/08/19 21:00 09/22/19 20:59 08/19/19 09:52 Hydralazine HCl (Apresoline) 10 mg Q6H PRN IV SBP> 160 08/08/19 21:45 11/06/19 21:44 Lisinopril (PriniviL) 20 mg Q12HR GT 08/08/19 21:00 09/07/19 20:59 08/19/19 09:49 Metoprolol Tartrate (Lopressor) 25 mg Q12HR GT 08/09/19 09:00 11/07/19 08:59 08/19/19 09:46 Multivitamins (Multivitamins) 1 tab DAILY GT 08/09/19 09:00 09/08/19 08:59 08/19/19 09:49 Pantoprazole (Protonix) 40 mg EVERY 12 HOURS IVP 08/09/19 23:00 09/08/19 22:59 08/19/19 09:48 Assessment/Plan Assessment/Plan anemia possible GIB sinus tachycardia respiratory failure trach chronic encephalopathy GT site infection low K fevers better severe protein calorie malnutrition PLAN dc planning once gt placed vent support feeds per gi GT placement next week I&D if needed per surgery monitor HH complete antibiotics per ID discuss with consultants as to disposition impression, plan, and exam edited and reviewed in detail care discussed with Isaiah Villatoro MD Aug 19, 2019 10:33
[2019-08-19 12:00] VITALS: BP 137/74
--- NOTE | 2019-08-19 12:37 | NUR ---
NURSE NOTES: Oral care done,tracheal/oral secretions suctioned PRN,pulled up,turned and repositioned .
--- NOTE | 2019-08-19 14:43 | NUR ---
CASE MANAGEMENT:REVIEW SI;PSEUDOMONAS/PROVIDENCIA PNEUMONIA. KLEBSIELLA/PSEUDOMONAS/VRE G-TUBE INFECTION. 96.8 65 24 137/74 100% TRACH/VENT FIO2 @ 35% H/H 8.6/27 CA+ 7.8 ALBU 1.6 IS; SYMMETREL GT QD PROTONIX IV Q12 LOPRESSOR GT Q12 NORVASC GT QD LISINOPRIL GT Q12 CARDURA GT QHS HEPARIN SUBQ Q12 JACKY STATUS DCP;PATIENT IS FROM [facility]ATELLITE PLAN: CONT MONITOR BEHAVIOR NEURO CHECKS MONITOR FEEDINGS R/O H-PYLORI Re-evaluate for gastrostomy tube placement next week.
--- NOTE | 2019-08-19 15:00 | NUR ---
NURSE NOTES: Dr Cummings at bedside,GT site squezzed ,serosanguinous drainage came out in mod amount,mellisa applied.
[2019-08-19 16:00] VITALS: BP 140/89
--- NOTE | 2019-08-19 16:25 | Surgery Progress Note ---
Surgery Progress Note Subjective Additional Comments still draining but less no n/v/f/c labs ordered plan peg soon Objective Last 24 Hour Vital Signs Date Time Temp Pulse Resp B/P (MAP) Pulse Ox O2 Delivery O2 Flow Rate FiO2 08/19/19 14:59 66 22 35 08/19/19 12:07 35 08/19/19 12:00 Mechanical Ventilator Mechanical Ventilator 08/19/19 12:00 59 08/19/19 12:00 96.8 65 24 137/74 (95) 100 08/19/19 11:06 56 17 35 08/19/19 09:49 69 144/73 08/19/19 09:49 144/73 08/19/19 09:46 69 144/73 08/19/19 08:32 69 08/19/19 08:01 Mechanical Ventilator Mechanical Ventilator 08/19/19 08:00 35 08/19/19 08:00 98.1 65 22 144/73 (96) 100 08/19/19 07:05 82 22 35 08/19/19 04:00 35 08/19/19 04:00 Mechanical Ventilator Mechanical Ventilator 08/19/19 04:00 97.5 67 22 140/70 (93) 100 08/19/19 04:00 71 08/19/19 03:19 64 22 35 08/19/19 00:00 75 08/19/19 00:00 97.5 67 24 137/78 (97) 100 08/19/19 00:00 35 08/19/19 00:00 Mechanical Ventilator Mechanical Ventilator 08/18/19 23:04 87 29 35 08/18/19 20:32 88 148/78 08/18/19 20:32 148/78 08/18/19 20:00 Mechanical Ventilator Mechanical Ventilator 08/18/19 20:00 35 08/18/19 20:00 88 08/18/19 20:00 97.2 72 24 148/78 (101) 100 08/18/19 18:39 85 23 35 I&O Intake and Output 08/18/19 08/19/19 19:00 07:00 Intake Total 1240 ml 750 ml Output Total 650 ml 500 ml Balance 590 ml 250 ml Free Water 200 ml 90 ml IV Total 860 ml Tube Feeding 180 ml 660 ml Output Urine Total 650 ml 500 ml # Bowel Movements 2 2 Dressing: saturated Wound: other Cardiovascular: RSR Respiratory: decreased breath sounds Abdomen: soft, non-tender, present bowel sounds, other, non-distended Extremities: edema, no tenderness, no cyanosis Plan Problems: (1) Anemia (2) Unstageable decubitus ulcer Assessment & Plan: Pt presented on admission with multiple Pressure Injuries. Pt has a Tracheostomy and no areas of skin concerns noted under tracheal collar. Unstageable Sacral Pressure Injury(L)9.5cm x (W)10cm. Base of wound is 75% mixed slough and eschar,25% carolynn, Edges adherent with surrounding purple and maroon indurated borders. No odor or exudate noted. DTPI L Heel (L)3.7cm x (W)4.5cm. Base of wound is maroon and indurated with surrounding non-Blanching erythema. Callused skin periwound. Reabsorbing DTPI Bradshaw L Foot (L)3.3cm x (W)2.5cm. Base of Pressure Injury is maroon but dry. No erythema or fluctuance periwound. DTPI Lateral L 1st metatarsal(L)1.5cm x (W)2cm. Base of wound is maroon and indurated.Callused skin periwound. DTPI Lateral R Heel (L)4.4cm x (W)6cm. Base of wound is indurated ,purple with surrounding maroon and fluctuant borders.Callusing periwound. DTPI R Hallux (L)1.8cm x (W)1.9cm. Base of wound is indurated and purple. Callusing periwound. DTPI Lateral R 1st metatarsal(L)2cm x (W)2.7cm. Base of wound is indurated and maroon. Callusing periwound. Tx.Plan: Cleanse Sacral wound with Saline. Apply TheraHoney. Apply Moisture Barrier Paste periwound. Cover with Optifoam drsg. Change every 3 days and prn. Apply Cavilon Skin Barrier to wounds L L Heel , L st metatarsal,Dorsal L Foot. Cover each Site with Optifoam drsg. Change every 7 days and prn. Apply Cavilon Skin Barrier to R Heel, R Hallux, R 1st metatarsal. Cover each site with Optifoam drsg. Change every 7 days and prn. APM/KHOA Mattress. Reposition at least every 2hours or as tolerated. Off-Load Heels with Pillows. (3) Leaking PEG tube Assessment & Plan: prior peg removed plan new placement soon will monitor site drainage noted packing placed Minimal drainage from prior G-tube site discussed with nursing about packing and dressings will continue current care plan plan for PEG tube once improved Lung bases: Atelectasis at the lung bases. Liver: Unremarkable. No mass. Gallbladder and bile ducts: Unremarkable. No calcified stones. No ductal dilation. Pancreas: Unremarkable. No mass. No ductal dilation. Spleen: Unremarkable. No splenomegaly. Adrenals: Unremarkable. No mass. Kidneys and ureters: Nonobstructing stone in the lower pole of the right kidney. Stomach and bowel: Tract from a recent percutaneous gastrostomy tube which is healing in the subcutaneous fat. Surrounding inflammatory changes but no abscess. Severe colonic diverticulosis within the sigmoid colon with mural hypertrophy however no surrounding inflammatory changes to suggest acute diverticulitis. Underlying malignancy not excluded. No obstruction. Intraperitoneal space: Unremarkable. No free air. No significant fluid collection. Bones/joints: No acute fracture. No dislocation. Soft tissues: Fat stranding in the ventral abdomen. Vasculature: Unremarkable. No abdominal aortic aneurysm. Lymph nodes: Unremarkable. No enlarged lymph nodes. Tubes, lines and devices: Thakkar catheter within the bladder. IMPRESSION: 1. Severe colonic diverticulosis within the sigmoid colon with mural hypertrophy however no surrounding inflammatory changes to suggest acute diverticulitis. Underlying malignancy not excluded. 2. Tract from a recent percutaneous gastrostomy tube which is healing in the subcutaneous fat. Surrounding inflammatory changes but no abscess. (4) Person under investigation for COVID-19 Assessment & Plan: There is a tracheostomy. Calcified granuloma is seen in the right midlung. Granulomatous calcified nodes are seen in the left aortopulmonary window. No definite infiltrates, effusions, congestion. The heart size is upper limits normal. Impression: No definite acute abnormality Evidence of old granulomatous disease Homero Cummings Aug 19, 2019 16:25
--- NOTE | 2019-08-19 17:00 | NUR ---
NURSE NOTES: Pt stable,no distress presented during the shift,
--- NOTE | 2019-08-19 19:35 | NUR ---
NURSE NOTES: Received pt from Gerry Sheppard RN. pt observed in bed, obtunded, able to open eyes, unable to make needs known. no s/sx of pain noted at this time. trach to vent settings are as follows: Portex: 8, AC: 14, VT: 450, FiO2: 35%, PEEP: 5; tolerating well, saturation: 100%; no s/sx of respiratory distress noted. environmental monitoring specialist shows SR with HR of 97 at this time. no acute cardiac distress noted. Soft wrist restraint noted to right side; skin in area remains intact, peripheral pulse present upon palpation. NGT noted in L nare, patent and intact; placement verified via auscultation. NGT running Osmolite at 60 cc/hr; HOB elevated to 30 degrees, no residual noted. F/C is patent and intact, draining marifer urine to gravity. RH 20 G IV site is patent and intact, asymptomatic. bed in lowest position and locked, siderails up X3, all needs attended to. will continue to monitor.
--- NOTE | 2019-08-19 19:41 | NUR ---
HAND-OFF: Report given to Agustina Damon RN.
[2019-08-19 20:00] VITALS: BP 156/81
[2019-08-19] MEDS: Doxazosin 4mg tab GT SCH (20:56)
--- NOTE | 2019-08-19 23:25 | NUR ---
NURSE NOTES: bed bath given. new gown and linens applied. drained G-tube site as ordered per MD. bed in lowest position and locked, siderails up X3, all needs attended to. will continue to monitor.
[2019-08-20] VITALS: BP 136/81
--- NOTE | 2019-08-20 02:10 | NUR ---
NURSE NOTES: pt appears to be calm and sleeping at this time. restraint removed from right wrist. no s/sx of pulling medical devices.
[2019-08-20 04:00] VITALS: BP 133/84
--- NOTE | 2019-08-20 04:35 | NUR ---
NURSE NOTES: pt observed reaching for NGT. noted increasing strength in LUE as well. bilateral soft wrist restraints applied. skin remains intact in areas, peripheral pulses present. will continue to monitor.
[2019-08-20 05:59] LABS: BASOPHILS % (AUTO) 0.5 % (0.0-2.0); EOSINOPHILS % (AUTO) 0.7 % (0.0-3.0); HEMATOCRIT 27.9 % (42.0-52.0); HEMOGLOBIN 9.1 G/DL (14.2-18.0); LYMPHOCYTES % (AUTO) 11.2 % (20.0-45.0); MEAN CORPUSCULAR VOLUME 104 FL (80-99); MONOCYTES % (AUTO) 8.3 % (1.0-10.0); NEUTROPHILS % (AUTO) 79.2 % (45.0-75.0); PLATELET COUNT 282 K/UL (150-450); RED BLOOD COUNT 2.68 M/UL (4.70-6.10); WHITE BLOOD COUNT 9.1 K/UL (4.8-10.8)
[2019-08-20 06:29] LABS: ALANINE AMINOTRANSFERASE 27 U/L (12-78); ALBUMIN 1.7 G/DL (3.4-5.0); ALBUMIN/GLOBULIN RATIO 0.3 (1.0-2.7); ALKALINE PHOSPHATASE 94 U/L (46-116); ANION GAP 7 mmol/L (5-15); ASPARTATE AMINO TRANSFERASE 18 U/L (15-37); BILIRUBIN,TOTAL 0.3 MG/DL (0.2-1.0); BLOOD UREA NITROGEN 11 mg/dL (7-18); CALCIUM 7.8 MG/DL (8.5-10.1); CARBON DIOXIDE 31 MMOL/L (21-32); CHLORIDE 100 MMOL/L (98-107); CREATININE 0.9 MG/DL (0.55-1.30); POTASSIUM 3.1 MMOL/L (3.5-5.1); SODIUM 138 MMOL/L (136-145)
--- NOTE | 2019-08-20 07:09 | NUR ---
NURSE NOTES: informed Dr. Hurt of pt's potassium level of 3.1 and calcium level of 7.8 this morning. received order for 40 meq KCl via NGT. will carry out.
--- NOTE | 2019-08-20 07:10 | NUR ---
NURSE NOTES: Received report from KEHINDE Berrios. Patient is obtunded. Portex 8 with vent setting AC 14, VT 450, FiO2 35% and Peep 5. NGT intact and clamped at this time. Thakkar intact and draining with yellow color urine. Right hand 20G intact. Bilateral soft wrist bands restraints on. Both hands are warm to touch. Kept dry, clean, comfortable and HOB>30. Will continue plan of care.
--- NOTE | 2019-08-20 07:39 | NUR ---
HAND-OFF: Report given to KEHINDE Lujan. endorsed plan of care.
[2019-08-20 08:00] VITALS: BP 148/91
[2019-08-20] MEDS: Ascorbic Acid 500mg tab GT SCH (08:36)
[2019-08-20] MEDS: Amantadine 100mg cap GT SCH (08:38)
[2019-08-20] MEDS: Lisinopril 20mg tab GT SCH ×2 (08:38→20:54)
[2019-08-20] MEDS ORDERED: NS 275ml ONE (08:39)
[2019-08-20] MEDS: Heparin 5000 units/ml inj SUBQ SCH ×2 (08:39→20:58)
[2019-08-20] MEDS: Pantoprazole Inj IVP SCH ×2 (08:39→20:55)
--- NOTE | 2019-08-20 08:42 | NUR ---
NURSE NOTES: Seen by Dr. Hawk and assessed Gtube site. No new orders at this time. Possible PEG placement on Wednesday.
--- NOTE | 2019-08-20 08:56 | Pulmonology Progress Note ---
Subjective ROS Limited/Unobtainable: Yes Constitutional: Denies: fever Allergies: Coded Allergies: No Known Allergies (Unverified , 08/07/19) Subjective remains ill dc planning on hold until gt placed vitals noted Objective Last 24 Hour Vital Signs Date Time Temp Pulse Resp B/P (MAP) Pulse Ox O2 Delivery O2 Flow Rate FiO2 08/20/19 08:38 148/91 08/20/19 08:37 91 148/91 08/20/19 08:37 91 148/91 08/20/19 08:00 98.1 91 25 148/91 (110) 100 08/20/19 07:05 83 34 35 08/20/19 04:00 89 08/20/19 04:00 Mechanical Ventilator Mechanical Ventilator 08/20/19 04:00 35 08/20/19 04:00 98.7 87 24 133/84 (100) 100 08/20/19 03:04 76 20 35 08/20/19 00:00 Mechanical Ventilator Mechanical Ventilator 08/20/19 00:00 87 08/20/19 00:00 35 08/20/19 00:00 98.2 85 24 136/81 (99) 100 08/19/19 22:58 79 20 35 08/19/19 20:57 95 156/81 08/19/19 20:56 156/81 08/19/19 20:00 98.6 95 22 156/81 (106) 100 08/19/19 20:00 98 08/19/19 20:00 Mechanical Ventilator Mechanical Ventilator 08/19/19 20:00 35 08/19/19 19:10 99 21 35 08/19/19 16:36 62 08/19/19 16:00 35 08/19/19 16:00 98.2 63 22 140/89 (106) 100 08/19/19 16:00 Mechanical Ventilator Mechanical Ventilator 08/19/19 14:59 66 22 35 08/19/19 12:07 35 08/19/19 12:00 Mechanical Ventilator Mechanical Ventilator 08/19/19 12:00 59 08/19/19 12:00 96.8 65 24 137/74 (95) 100 08/19/19 11:06 56 17 35 08/19/19 09:49 69 144/73 08/19/19 09:49 144/73 08/19/19 09:46 69 144/73 Intake and Output 08/19/19 08/20/19 19:00 07:00 Intake Total 420 ml 700 ml Output Total 450 ml 600 ml Balance -30 ml 100 ml Free Water 200 ml 100 ml Tube Feeding 60 ml 600 ml Other 160 ml Output Urine Total 450 ml 600 ml # Bowel Movements 2 2 Objective WDWN trach reduced breath sounds bilaterally without rhonchi or wheeze [id number] without MRG NABS nontender no CCE reduced LOC Laboratory Tests 08/20/19 05:30: White Blood Count 9.1, Red Blood Count 2.68L, Hemoglobin 9.1L, Hematocrit 27.9L , Mean Corpuscular Volume 104H, Mean Corpuscular Hemoglobin 33.7H, Mean Corpuscular Hemoglobin Concent 32.4, Red Cell Distribution Width 13.0, Platelet Count 282, Mean Platelet Volume 7.7, Neutrophils (%) (Auto) 79.2H, Lymphocytes ( %) (Auto) 11.2L, Monocytes (%) (Auto) 8.3, Eosinophils (%) (Auto) 0.7, Basophils (%) (Auto) 0.5, Erythrocyte Sedimentation Rate 125H, Sodium Level 138 , Potassium Level 3.1L, Chloride Level 100, Carbon Dioxide Level 31, Anion Gap 7 , Blood Urea Nitrogen 11, Creatinine 0.9, Estimat Glomerular Filtration Rate > 60, Glucose Level 136H, Calcium Level 7.8L, Total Bilirubin 0.3, Aspartate Amino Transf (AST/SGOT) 18, Alanine Aminotransferase (ALT/SGPT) 27, Alkaline Phosphatase 94, C-Reactive Protein, Quantitative 3.8H, Total Protein 7.2, Albumin 1.7L, Globulin 5.5, Albumin/Globulin Ratio 0.3L Current Medications Medications (Trade) Dose Ordered Sig/Nury Route PRN Reason Start Time Stop Time Status Last Admin Dose Admin Acetaminophen (Tylenol) 325 mg Q6H PRN RECTAL Temp >100.5 08/08/19 21:45 09/07/19 21:44 Acetaminophen (Tylenol) 650 mg Q4H PRN GT Mild Pain (Pain Scale 1-3) 08/08/19 10:45 09/07/19 10:44 Acetaminophen (Tylenol) 650 mg Q4H PRN GT Temp >100.5 08/08/19 10:45 09/07/19 10:44 Amantadine HCl (Symmetrel) 100 mg DAILY GT 08/09/19 09:00 09/08/19 08:59 08/20/19 08:38 Amlodipine Besylate (Norvasc) 5 mg DAILY GT 08/10/19 09:00 09/09/19 08:59 08/20/19 08:37 Ascorbic Acid (Vitamin C) 250 mg DAILY GT 08/09/19 09:00 09/08/19 08:59 08/20/19 08:36 Doxazosin Mesylate (Cardura) 2 mg QHS GT 08/08/19 21:00 09/07/19 20:59 08/19/19 20:56 Folic Acid (Folate) 1 mg DAILY GT 08/08/19 14:30 09/07/19 14:29 08/20/19 08:38 Heparin Sodium (Porcine) (Heparin 5000 units/ml) 5,000 units EVERY 12 HOURS SUBQ 08/08/19 21:00 09/22/19 20:59 08/20/19 08:39 Hydralazine HCl (Apresoline) 10 mg Q6H PRN IV SBP> 160 08/08/19 21:45 11/06/19 21:44 Lisinopril (PriniviL) 20 mg Q12HR GT 08/08/19 21:00 09/07/19 20:59 08/20/19 08:38 Metoprolol Tartrate (Lopressor) 25 mg Q12HR GT 08/09/19 09:00 11/07/19 08:59 08/20/19 08:37 Multivitamins (Multivitamins) 1 tab DAILY GT 08/09/19 09:00 09/08/19 08:59 08/20/19 08:38 Pantoprazole (Protonix) 40 mg EVERY 12 HOURS IVP 08/09/19 23:00 09/08/19 22:59 08/20/19 08:39 Potassium Chloride (K-Dur) 40 meq ONCE ORAL 08/20/19 09:00 08/20/19 10:00 08/20/19 08:37 Assessment/Plan Assessment/Plan anemia possible GIB sinus tachycardia respiratory failure trach chronic encephalopathy GT site infection low K fevers better severe protein calorie malnutrition PLAN dc planning once gt placed vent support feeds per gi GT placement next week I&D if needed per surgery monitor HH replace K monitor albumin levels complete antibiotics per ID discuss with consultants as to disposition impression, plan, and exam edited and reviewed in detail care discussed with Isaiah Villatoro MD Aug 20, 2019 08:56
--- NOTE | 2019-08-20 09:17 | NUR ---
NURSE NOTES: Seen by Dr. Hurt and assessed patient. No new orders at this time.
[2019-08-20 12:00] VITALS: BP 130/77
--- NOTE | 2019-08-20 12:02 | NUR ---
NURSE NOTES: Repositioned patient. Trach and oral care given. Kept dry, clean, comfortable and HOB>30.
--- NOTE | 2019-08-20 12:44 | Infectious Diseases Prog Note ---
Assessment/Plan Assessment/Plan A: Gastrostomy infection Pseudomonas & Providencia pneumonia VDRF Anemia Pressure ulcer Diverticulosis P; Observe off antibiotic Will have PEG replacement Subjective ROS Limited/Unobtainable: Yes Neurologic: Reports: confusion, other - on restraint Allergies: Coded Allergies: No Known Allergies (Unverified , 08/07/19) Objective Vital Signs Last 24 Hour Vital Signs Date Time Temp Pulse Resp B/P (MAP) Pulse Ox O2 Delivery O2 Flow Rate FiO2 08/20/19 11:05 72 24 35 08/20/19 08:38 148/91 08/20/19 08:37 91 148/91 08/20/19 08:37 91 148/91 08/20/19 08:00 98.1 91 25 148/91 (110) 100 08/20/19 08:00 35 08/20/19 08:00 Mechanical Ventilator Mechanical Ventilator 08/20/19 08:00 78 08/20/19 07:05 83 34 35 08/20/19 04:00 89 08/20/19 04:00 Mechanical Ventilator Mechanical Ventilator 08/20/19 04:00 35 08/20/19 04:00 98.7 87 24 133/84 (100) 100 08/20/19 03:04 76 20 35 08/20/19 00:00 Mechanical Ventilator Mechanical Ventilator 08/20/19 00:00 87 08/20/19 00:00 35 08/20/19 00:00 98.2 85 24 136/81 (99) 100 08/19/19 22:58 79 20 35 08/19/19 20:57 95 156/81 08/19/19 20:56 156/81 08/19/19 20:00 98.6 95 22 156/81 (106) 100 08/19/19 20:00 98 08/19/19 20:00 Mechanical Ventilator Mechanical Ventilator 08/19/19 20:00 35 08/19/19 19:10 99 21 35 08/19/19 16:36 62 08/19/19 16:00 35 08/19/19 16:00 98.2 63 22 140/89 (106) 100 08/19/19 16:00 Mechanical Ventilator Mechanical Ventilator 08/19/19 14:59 66 22 35 Height (Feet): 5 Height (Inches): 10.00 Weight (Pounds): 216 HEENT: mucous membranes moist Respiratory/Chest: lungs clear, other - on ventilator Abdomen: soft, non tender, other - NG tube Extremities: other - hands edema Neurologic/Psychiatric: aphasia Laboratory Tests Test 08/20/19 05:30 White Blood Count 9.1 K/UL (4.8-10.8) Red Blood Count 2.68 M/UL (4.70-6.10) L Hemoglobin 9.1 G/DL (14.2-18.0) L Hematocrit 27.9 % (42.0-52.0) L Mean Corpuscular Volume 104 FL (80-99) H Mean Corpuscular Hemoglobin 33.7 PG (27.0-31.0) H Mean Corpuscular Hemoglobin Concent 32.4 G/DL (32.0-36.0) Red Cell Distribution Width 13.0 % (11.6-14.8) Platelet Count 282 K/UL (150-450) Mean Platelet Volume 7.7 FL (6.5-10.1) Neutrophils (%) (Auto) 79.2 % (45.0-75.0) H Lymphocytes (%) (Auto) 11.2 % (20.0-45.0) L Monocytes (%) (Auto) 8.3 % (1.0-10.0) Eosinophils (%) (Auto) 0.7 % (0.0-3.0) Basophils (%) (Auto) 0.5 % (0.0-2.0) Erythrocyte Sedimentation Rate 125 MM/HR (0-20) H Sodium Level 138 MMOL/L (136-145) Potassium Level 3.1 MMOL/L (3.5-5.1) L Chloride Level 100 MMOL/L (98-107) Carbon Dioxide Level 31 MMOL/L (21-32) Anion Gap 7 mmol/L (5-15) Blood Urea Nitrogen 11 mg/dL (7-18) Creatinine 0.9 MG/DL (0.55-1.30) Estimat Glomerular Filtration Rate > 60 mL/min (>60) Glucose Level 136 MG/DL (74-106) H Calcium Level 7.8 MG/DL (8.5-10.1) L Total Bilirubin 0.3 MG/DL (0.2-1.0) Aspartate Amino Transf (AST/SGOT) 18 U/L (15-37) Alanine Aminotransferase (ALT/SGPT) 27 U/L (12-78) Alkaline Phosphatase 94 U/L (46-116) C-Reactive Protein, Quantitative 3.8 mg/dL (0.00-0.90) H Total Protein 7.2 G/DL (6.4-8.2) Albumin 1.7 G/DL (3.4-5.0) L Globulin 5.5 g/dL Albumin/Globulin Ratio 0.3 (1.0-2.7) L Current Medications Medications (Trade) Dose Ordered Sig/Nury Route PRN Reason Start Time Stop Time Status Last Admin Dose Admin Acetaminophen (Tylenol) 325 mg Q6H PRN RECTAL Temp >100.5 08/08/19 21:45 09/07/19 21:44 Acetaminophen (Tylenol) 650 mg Q4H PRN GT Mild Pain (Pain Scale 1-3) 08/08/19 10:45 09/07/19 10:44 Acetaminophen (Tylenol) 650 mg Q4H PRN GT Temp >100.5 08/08/19 10:45 09/07/19 10:44 Amantadine HCl (Symmetrel) 100 mg DAILY GT 08/09/19 09:00 09/08/19 08:59 08/20/19 08:38 Amlodipine Besylate (Norvasc) 5 mg DAILY GT 08/10/19 09:00 09/09/19 08:59 08/20/19 08:37 Ascorbic Acid (Vitamin C) 250 mg DAILY GT 08/09/19 09:00 09/08/19 08:59 08/20/19 08:36 Doxazosin Mesylate (Cardura) 2 mg QHS GT 08/08/19 21:00 09/07/19 20:59 08/19/19 20:56 Folic Acid (Folate) 1 mg DAILY GT 08/08/19 14:30 09/07/19 14:29 08/20/19 08:38 Heparin Sodium (Porcine) (Heparin 5000 units/ml) 5,000 units EVERY 12 HOURS SUBQ 08/08/19 21:00 09/22/19 20:59 08/20/19 08:39 Hydralazine HCl (Apresoline) 10 mg Q6H PRN IV SBP> 160 08/08/19 21:45 11/06/19 21:44 Lisinopril (PriniviL) 20 mg Q12HR GT 08/08/19 21:00 09/07/19 20:59 08/20/19 08:38 Metoprolol Tartrate (Lopressor) 25 mg Q12HR GT 08/09/19 09:00 11/07/19 08:59 08/20/19 08:37 Multivitamins (Multivitamins) 1 tab DAILY GT 08/09/19 09:00 09/08/19 08:59 08/20/19 08:38 Pantoprazole (Protonix) 40 mg EVERY 12 HOURS IVP 08/09/19 23:00 09/08/19 22:59 08/20/19 08:39 Issa Snow MD Aug 20, 2019 12:44
--- NOTE | 2019-08-20 13:24 | NUR ---
NURSE NOTES: Seen by Dr. Cummings and assessed patient.
--- NOTE | 2019-08-20 14:05 | NUR ---
NURSE NOTES: Patient is still restless and trying to reach to tracheostomy and tubing. Reorientated and educated patient. Patient is unable to follow commands and unable to communicate. Bilateral soft wrist bands restraints still on. Both hands are warm to touch. Will continue plan of care.
--- NOTE | 2019-08-20 14:56 | Surgery Progress Note ---
Surgery Progress Note Subjective Additional Comments labs noted exam stable less drainage plan g tube soon Objective Last 24 Hour Vital Signs Date Time Temp Pulse Resp B/P (MAP) Pulse Ox O2 Delivery O2 Flow Rate FiO2 08/20/19 12:00 77 08/20/19 12:00 100.0 79 26 130/77 (94) 98 08/20/19 12:00 35 08/20/19 12:00 Mechanical Ventilator Mechanical Ventilator 08/20/19 11:05 72 24 35 08/20/19 08:38 148/91 08/20/19 08:37 91 148/91 08/20/19 08:37 91 148/91 08/20/19 08:00 98.1 91 25 148/91 (110) 100 08/20/19 08:00 35 08/20/19 08:00 Mechanical Ventilator Mechanical Ventilator 08/20/19 08:00 78 08/20/19 07:05 83 34 35 08/20/19 04:00 89 08/20/19 04:00 Mechanical Ventilator Mechanical Ventilator 08/20/19 04:00 35 08/20/19 04:00 98.7 87 24 133/84 (100) 100 08/20/19 03:04 76 20 35 08/20/19 00:00 Mechanical Ventilator Mechanical Ventilator 08/20/19 00:00 87 08/20/19 00:00 35 08/20/19 00:00 98.2 85 24 136/81 (99) 100 08/19/19 22:58 79 20 35 08/19/19 20:57 95 156/81 08/19/19 20:56 156/81 08/19/19 20:00 98.6 95 22 156/81 (106) 100 08/19/19 20:00 98 08/19/19 20:00 Mechanical Ventilator Mechanical Ventilator 08/19/19 20:00 35 08/19/19 19:10 99 21 35 08/19/19 16:36 62 08/19/19 16:00 35 08/19/19 16:00 98.2 63 22 140/89 (106) 100 08/19/19 16:00 Mechanical Ventilator Mechanical Ventilator 08/19/19 14:59 66 22 35 I&O Intake and Output 08/19/19 08/20/19 19:00 07:00 Intake Total 420 ml 700 ml Output Total 450 ml 600 ml Balance -30 ml 100 ml Free Water 200 ml 100 ml Tube Feeding 60 ml 600 ml Other 160 ml Output Urine Total 450 ml 600 ml # Bowel Movements 2 2 Dressing: saturated Wound: clean Cardiovascular: RSR Respiratory: clear, decreased breath sounds Abdomen: soft, non-tender, present bowel sounds, other Extremities: no cyanosis Laboratory Tests Test 08/20/19 05:30 White Blood Count 9.1 K/UL (4.8-10.8) Red Blood Count 2.68 M/UL (4.70-6.10) L Hemoglobin 9.1 G/DL (14.2-18.0) L Hematocrit 27.9 % (42.0-52.0) L Mean Corpuscular Volume 104 FL (80-99) H Mean Corpuscular Hemoglobin 33.7 PG (27.0-31.0) H Mean Corpuscular Hemoglobin Concent 32.4 G/DL (32.0-36.0) Red Cell Distribution Width 13.0 % (11.6-14.8) Platelet Count 282 K/UL (150-450) Mean Platelet Volume 7.7 FL (6.5-10.1) Neutrophils (%) (Auto) 79.2 % (45.0-75.0) H Lymphocytes (%) (Auto) 11.2 % (20.0-45.0) L Monocytes (%) (Auto) 8.3 % (1.0-10.0) Eosinophils (%) (Auto) 0.7 % (0.0-3.0) Basophils (%) (Auto) 0.5 % (0.0-2.0) Erythrocyte Sedimentation Rate 125 MM/HR (0-20) H Sodium Level 138 MMOL/L (136-145) Potassium Level 3.1 MMOL/L (3.5-5.1) L Chloride Level 100 MMOL/L (98-107) Carbon Dioxide Level 31 MMOL/L (21-32) Anion Gap 7 mmol/L (5-15) Blood Urea Nitrogen 11 mg/dL (7-18) Creatinine 0.9 MG/DL (0.55-1.30) Estimat Glomerular Filtration Rate > 60 mL/min (>60) Glucose Level 136 MG/DL (74-106) H Calcium Level 7.8 MG/DL (8.5-10.1) L Total Bilirubin 0.3 MG/DL (0.2-1.0) Aspartate Amino Transf (AST/SGOT) 18 U/L (15-37) Alanine Aminotransferase (ALT/SGPT) 27 U/L (12-78) Alkaline Phosphatase 94 U/L (46-116) C-Reactive Protein, Quantitative 3.8 mg/dL (0.00-0.90) H Total Protein 7.2 G/DL (6.4-8.2) Albumin 1.7 G/DL (3.4-5.0) L Globulin 5.5 g/dL Albumin/Globulin Ratio 0.3 (1.0-2.7) L Plan Problems: (1) Anemia (2) Unstageable decubitus ulcer Assessment & Plan: Pt presented on admission with multiple Pressure Injuries. Pt has a Tracheostomy and no areas of skin concerns noted under tracheal collar. Unstageable Sacral Pressure Injury(L)9.5cm x (W)10cm. Base of wound is 75% mixed slough and eschar,25% carolynn, Edges adherent with surrounding purple and maroon indurated borders. No odor or exudate noted. DTPI L Heel (L)3.7cm x (W)4.5cm. Base of wound is maroon and indurated with surrounding non-Blanching erythema. Callused skin periwound. Reabsorbing DTPI [place] L Foot (L)3.3cm x (W)2.5cm. Base of Pressure Injury is maroon but dry. No erythema or fluctuance periwound. DTPI Lateral L 1st metatarsal(L)1.5cm x (W)2cm. Base of wound is maroon and indurated.Callused skin periwound. DTPI Lateral R Heel (L)4.4cm x (W)6cm. Base of wound is indurated ,purple with surrounding maroon and fluctuant borders.Callusing periwound. DTPI R Hallux (L)1.8cm x (W)1.9cm. Base of wound is indurated and purple. Callusing periwound. DTPI Lateral R 1st metatarsal(L)2cm x (W)2.7cm. Base of wound is indurated and maroon. Callusing periwound. Tx.Plan: Cleanse Sacral wound with Saline. Apply TheraHoney. Apply Moisture Barrier Paste periwound. Cover with Optifoam drsg. Change every 3 days and prn. Apply Cavilon Skin Barrier to wounds L L Heel , L st metatarsal,Dorsal L Foot. Cover each Site with Optifoam drsg. Change every 7 days and prn. Apply Cavilon Skin Barrier to R Heel, R Hallux, R 1st metatarsal. Cover each site with Optifoam drsg. Change every 7 days and prn. APM/KHOA Mattress. Reposition at least every 2hours or as tolerated. Off-Load Heels with Pillows. (3) Leaking PEG tube Assessment & Plan: prior peg removed plan new placement soon will monitor site drainage noted packing placed Minimal drainage from prior G-tube site discussed with nursing about packing and dressings will continue current care plan plan for PEG tube once improved Lung bases: Atelectasis at the lung bases. Liver: Unremarkable. No mass. Gallbladder and bile ducts: Unremarkable. No calcified stones. No ductal dilation. Pancreas: Unremarkable. No mass. No ductal dilation. Spleen: Unremarkable. No splenomegaly. Adrenals: Unremarkable. No mass. Kidneys and ureters: Nonobstructing stone in the lower pole of the right kidney. Stomach and bowel: Tract from a recent percutaneous gastrostomy tube which is healing in the subcutaneous fat. Surrounding inflammatory changes but no abscess. Severe colonic diverticulosis within the sigmoid colon with mural hypertrophy however no surrounding inflammatory changes to suggest acute diverticulitis. Underlying malignancy not excluded. No obstruction. Intraperitoneal space: Unremarkable. No free air. No significant fluid collection. Bones/joints: No acute fracture. No dislocation. Soft tissues: Fat stranding in the ventral abdomen. Vasculature: Unremarkable. No abdominal aortic aneurysm. Lymph nodes: Unremarkable. No enlarged lymph nodes. Tubes, lines and devices: Thakkar catheter within the bladder. IMPRESSION: 1. Severe colonic diverticulosis within the sigmoid colon with mural hypertrophy however no surrounding inflammatory changes to suggest acute diverticulitis. Underlying malignancy not excluded. 2. Tract from a recent percutaneous gastrostomy tube which is healing in the subcutaneous fat. Surrounding inflammatory changes but no abscess. (4) Person under investigation for COVID-19 Assessment & Plan: There is a tracheostomy. Calcified granuloma is seen in the right midlung. Granulomatous calcified nodes are seen in the left aortopulmonary window. No definite infiltrates, effusions, congestion. The heart size is upper limits normal. Impression: No definite acute abnormality Evidence of old granulomatous disease Homero Cummings Aug 20, 2019 14:56
--- NOTE | 2019-08-20 15:02 | NUR ---
NURSE NOTES: Changed gtube site dressing. Scant serosanguineous drainage noted.
[2019-08-20 16:00] VITALS: BP 137/83
--- NOTE | 2019-08-20 17:02 | NUR ---
NURSE NOTES: Bed bath given. Moderate brown soft BM. Kept dry, clean and comfortable.
--- NOTE | 2019-08-20 18:27 | NUR ---
NURSE NOTES: Patient is still restless. Reoriented but unable to understand. Kept dry, clean and comfortable.
--- NOTE | 2019-08-20 19:26 | NUR ---
"NURSE NOTES: Received patient from KEHINDE Lujan. Patient obtunded upon assessment. No S/S of pain noted at this time. Trach to Vent settings: Portex 8 | AC 14 | TV 450 | FiO2 35% | Peep 5. Tolerating vent settings well; saturation at 100%. No S/S of respiratory distress noted. Patient noted with NG tube (L nare); verified placement via auscultation. NG Tube running Osmolite 1.5 at 60 mL/hr. HOB elevated at 30 degrees. No residual noted. Thakkar catheter is patent and intact draining light marifer urine to gravity. Skin alterations noted. (R) Hand 18 gauge and (R) Hand 20 gauge IV sites noted; patent and intact. Bilateral soft wrist restraints noted. Skin remains intact. Peripheral pulses present bilaterally upon palpation. Bed in lowest and locked position. Bed alarm on. Side rails up x3. All needs attended to. Will continue to monitor."
--- NOTE | 2019-08-20 19:26 | NUR ---
HAND-OFF: Report given to KEHINDE Berrios. Endorsed plan of care.
[2019-08-20 20:00] VITALS: BP 159/98
[2019-08-20] MEDS: Doxazosin 4mg tab GT SCH (20:53)
[2019-08-20] MEDS: Acetaminophen 650mg/20.3ml GT PRN (20:59)
--- NOTE | 2019-08-20 21:03 | General Progress Note ---
Assessment/Plan Assessment/Plan: Assessment - GT migration out of stomach - Mushroom cap in anterior abdominal wall (GT removed) - Abdominal wall induration and discharge --> definite improvement over past 48 hours - anemia - OB (+) stools - due to ulcerative gastritis, no colonoscopy per DPOA - s/p Trach Recommendations - PPI - NGT for meds and feeds - off abx per ID - follow exam and labs - transfuse as needed - d/c PO Iron ----> IV Fe - laxative, PRN - PEG placement tentatively Tues am Subjective Allergies: Coded Allergies: No Known Allergies (Unverified , 08/07/19) Subjective above noted NAD d/w RN re GT site care much less drainage noted Objective Last 24 Hour Vital Signs Date Time Temp Pulse Resp B/P (MAP) Pulse Ox O2 Delivery O2 Flow Rate FiO2 08/20/19 20:54 101 167/101 08/20/19 20:54 167/101 08/20/19 20:00 35 08/20/19 20:00 99.0 101 28 159/98 (118) 100 08/20/19 19:45 97 25 35 08/20/19 16:04 87 08/20/19 16:00 99.1 86 26 137/83 (101) 100 08/20/19 16:00 35 08/20/19 16:00 Mechanical Ventilator Mechanical Ventilator 08/20/19 15:00 80 26 35 08/20/19 12:00 77 08/20/19 12:00 100.0 79 26 130/77 (94) 98 08/20/19 12:00 35 08/20/19 12:00 Mechanical Ventilator Mechanical Ventilator 08/20/19 11:05 72 24 35 08/20/19 08:38 148/91 08/20/19 08:37 91 148/91 08/20/19 08:37 91 148/91 08/20/19 08:00 98.1 91 25 148/91 (110) 100 08/20/19 08:00 35 08/20/19 08:00 Mechanical Ventilator Mechanical Ventilator 08/20/19 08:00 78 08/20/19 07:05 83 34 35 08/20/19 04:00 89 08/20/19 04:00 Mechanical Ventilator Mechanical Ventilator 08/20/19 04:00 35 08/20/19 04:00 98.7 87 24 133/84 (100) 100 08/20/19 03:04 76 20 35 08/20/19 00:00 Mechanical Ventilator Mechanical Ventilator 08/20/19 00:00 87 08/20/19 00:00 35 08/20/19 00:00 98.2 85 24 136/81 (99) 100 08/19/19 22:58 79 20 35 Intake and Output 08/19/19 08/20/19 19:00 07:00 Intake Total 420 ml 700 ml Output Total 450 ml 600 ml Balance -30 ml 100 ml Free Water 200 ml 100 ml Tube Feeding 60 ml 600 ml Other 160 ml Output Urine Total 450 ml 600 ml # Bowel Movements 2 2 Laboratory Tests 08/20/19 05:30: White Blood Count 9.1, Red Blood Count 2.68L, Hemoglobin 9.1L, Hematocrit 27.9L , Mean Corpuscular Volume 104H, Mean Corpuscular Hemoglobin 33.7H, Mean Corpuscular Hemoglobin Concent 32.4, Red Cell Distribution Width 13.0, Platelet Count 282, Mean Platelet Volume 7.7, Neutrophils (%) (Auto) 79.2H, Lymphocytes ( %) (Auto) 11.2L, Monocytes (%) (Auto) 8.3, Eosinophils (%) (Auto) 0.7, Basophils (%) (Auto) 0.5, Erythrocyte Sedimentation Rate 125H, Sodium Level 138 , Potassium Level 3.1L, Chloride Level 100, Carbon Dioxide Level 31, Anion Gap 7 , Blood Urea Nitrogen 11, Creatinine 0.9, Estimat Glomerular Filtration Rate > 60, Glucose Level 136H, Calcium Level 7.8L, Total Bilirubin 0.3, Aspartate Amino Transf (AST/SGOT) 18, Alanine Aminotransferase (ALT/SGPT) 27, Alkaline Phosphatase 94, C-Reactive Protein, Quantitative 3.8H, Total Protein 7.2, Albumin 1.7L, Globulin 5.5, Albumin/Globulin Ratio 0.3L Height (Feet): 5 Height (Inches): 10.00 Weight (Pounds): 216 Objective Obese AA Man NCAT (+) Trach coarse BS RR Abd obese, packed old GT site, induration smaller in size, discharge much less trace edema non interactive Rubia Hawk MD Aug 20, 2019 21:03
--- NOTE | 2019-08-20 21:15 | NUR ---
NURSE NOTES: PRN Tylenol administered as ordered per MD for pain. Patient showing S/S of pain per flacc scale including facial grimacing, clenching of fists, and tachycardia noted on monitor. HR 110 bpm. Will reassess and continue monitoring.
[2019-08-21] VITALS: BP 141/78
--- NOTE | 2019-08-21 01:15 | Progress Note ---
DATE: 08/20/2019 CARDIOLOGY PROGRESS NOTE SUBJECTIVE: This patient is pending G-tube replacement. OBJECTIVE: VITAL SIGNS: Blood pressure 133/84, heart rate 87, respiratory rate 24, and afebrile. LUNGS: Bilateral breath sounds. Few rhonchi. No wheezing. CARDIAC: Regular rhythm and rate. Normal S1 and S2. There is no murmur. ABDOMEN: Soft. EXTREMITIES: No edema. LABORATORY DATA: Monitor sinus. Potassium 3.1 and albumin 1.7. Hemoglobin 9.1 and white count 9.1. BUN 11 and creatinine 0.9. IMPRESSION: 1. Hypokalemia. 2. Respiratory failure. 3. G-tube infection. 4. Paroxysmal bradyarrhythmias due to increased vagal tone. PLAN: 1. Additional potassium. 2. Recheck magnesium. 3. Stable for G-tube replacement from cardiovascular standpoint with atropine recommended at bedside. Augustine Fisher M.D. DR: ELIESER JOB#: [id number] CC:
--- NOTE | 2019-08-21 01:44 | NUR ---
NURSE NOTES: Patient asleep and in stable condition. Afebrile. No distress noted. Will continue to monitor.
--- NOTE | 2019-08-21 03:00 | NUR ---
NURSE NOTES: bed bath provided. new gown and linens applied. oral care provided. pt tolerated well. bed in lowest position and locked, siderails up X3, all needs attended to. will continue to monitor.
[2019-08-21 04:00] VITALS: BP 149/88
[2019-08-21 04:32] LABS: BASOPHILS % (AUTO) 0.5 % (0.0-2.0); EOSINOPHILS % (AUTO) 0.8 % (0.0-3.0); HEMATOCRIT 28.9 % (42.0-52.0); HEMOGLOBIN 9.4 G/DL (14.2-18.0); LYMPHOCYTES % (AUTO) 12.6 % (20.0-45.0); MEAN CORPUSCULAR VOLUME 104 FL (80-99); MONOCYTES % (AUTO) 9.8 % (1.0-10.0); NEUTROPHILS % (AUTO) 76.3 % (45.0-75.0); PLATELET COUNT 289 K/UL (150-450); RED BLOOD COUNT 2.79 M/UL (4.70-6.10); WHITE BLOOD COUNT 7.6 K/UL (4.8-10.8)
[2019-08-21 04:45] LABS: ANION GAP 7 mmol/L (5-15); BLOOD UREA NITROGEN 15 mg/dL (7-18); CALCIUM 8.3 MG/DL (8.5-10.1); CARBON DIOXIDE 30 MMOL/L (21-32); CHLORIDE 101 MMOL/L (98-107); POTASSIUM 3.5 MMOL/L (3.5-5.1); SODIUM 138 MMOL/L (136-145)
--- NOTE | 2019-08-21 07:25 | NUR ---
HAND-OFF: Report given to KEHINDE Bradshaw. Endorsed plan of care.
--- NOTE | 2019-08-21 07:52 | Pulmonology Progress Note ---
Subjective ROS Limited/Unobtainable: Yes Constitutional: Denies: fever Allergies: Coded Allergies: No Known Allergies (Unverified , 08/07/19) Subjective remains ill and overall without change dc planning on hold until gt placed in am vitals noted Objective Last 24 Hour Vital Signs Date Time Temp Pulse Resp B/P (MAP) Pulse Ox O2 Delivery O2 Flow Rate FiO2 08/21/19 07:12 89 24 35 08/21/19 04:00 35 08/21/19 04:00 91 08/21/19 04:00 98.2 88 26 149/88 (108) 100 08/21/19 04:00 Mechanical Ventilator Mechanical Ventilator 08/21/19 03:00 79 24 35 08/21/19 00:00 85 08/21/19 00:00 Mechanical Ventilator Mechanical Ventilator 08/21/19 00:00 98.4 81 24 141/78 (99) 100 08/21/19 00:00 35 08/20/19 23:10 83 29 35 08/20/19 20:54 101 167/101 08/20/19 20:54 167/101 08/20/19 20:00 102 08/20/19 20:00 Mechanical Ventilator Mechanical Ventilator 08/20/19 20:00 35 08/20/19 20:00 99.0 101 28 159/98 (118) 100 08/20/19 19:45 97 25 35 08/20/19 16:04 87 08/20/19 16:00 99.1 86 26 137/83 (101) 100 08/20/19 16:00 35 08/20/19 16:00 Mechanical Ventilator Mechanical Ventilator 08/20/19 15:00 80 26 35 08/20/19 12:00 77 08/20/19 12:00 100.0 79 26 130/77 (94) 98 08/20/19 12:00 35 08/20/19 12:00 Mechanical Ventilator Mechanical Ventilator 08/20/19 11:05 72 24 35 08/20/19 08:38 148/91 08/20/19 08:37 91 148/91 08/20/19 08:37 91 148/91 08/20/19 08:00 98.1 91 25 148/91 (110) 100 08/20/19 08:00 35 08/20/19 08:00 Mechanical Ventilator Mechanical Ventilator 08/20/19 08:00 78 Intake and Output 08/20/19 08/21/19 19:00 07:00 Intake Total 730 ml 700 ml Output Total 425 ml 400 ml Balance 305 ml 300 ml Free Water 130 ml 100 ml Tube Feeding 600 ml 600 ml Output Urine Total 425 ml 400 ml # Bowel Movements 2 Objective WDWN trach reduced breath sounds bilaterally without rhonchi or wheeze [id number] without MRG NABS nontender no CCE reduced LOC Laboratory Tests 08/21/19 03:30: White Blood Count 7.6, Red Blood Count 2.79L, Hemoglobin 9.4L, Hematocrit 28.9L , Mean Corpuscular Volume 104H, Mean Corpuscular Hemoglobin 33.6H, Mean Corpuscular Hemoglobin Concent 32.5, Red Cell Distribution Width 13.0, Platelet Count 289, Mean Platelet Volume 7.9, Neutrophils (%) (Auto) 76.3H, Lymphocytes ( %) (Auto) 12.6L, Monocytes (%) (Auto) 9.8, Eosinophils (%) (Auto) 0.8, Basophils (%) (Auto) 0.5, Sodium Level 138, Potassium Level 3.5, Chloride Level 101, Carbon Dioxide Level 30, Anion Gap 7, Blood Urea Nitrogen 15, Creatinine 1.0, Estimat Glomerular Filtration Rate > 60, Glucose Level 142H, Calcium Level 8.3L, Magnesium Level 2.0, Pro-B-Type Natriuretic Peptide 541H Current Medications Medications (Trade) Dose Ordered Sig/Nury Route PRN Reason Start Time Stop Time Status Last Admin Dose Admin Acetaminophen (Tylenol) 325 mg Q6H PRN RECTAL Temp >100.5 08/08/19 21:45 09/07/19 21:44 Acetaminophen (Tylenol) 650 mg Q4H PRN GT Temp >100.5 08/08/19 10:45 09/07/19 10:44 08/20/19 20:59 Acetaminophen (Tylenol) 650 mg Q4H PRN GT Mild Pain (Pain Scale 1-3) 08/08/19 10:45 09/07/19 10:44 Amantadine HCl (Symmetrel) 100 mg DAILY GT 08/09/19 09:00 09/08/19 08:59 08/20/19 08:38 Amlodipine Besylate (Norvasc) 5 mg DAILY GT 08/10/19 09:00 09/09/19 08:59 08/20/19 08:37 Ascorbic Acid (Vitamin C) 250 mg DAILY GT 08/09/19 09:00 09/08/19 08:59 08/20/19 08:36 Doxazosin Mesylate (Cardura) 2 mg QHS GT 08/08/19 21:00 09/07/19 20:59 08/20/19 20:53 Folic Acid (Folate) 1 mg DAILY GT 08/08/19 14:30 09/07/19 14:29 08/20/19 08:38 Heparin Sodium (Porcine) (Heparin 5000 units/ml) 5,000 units EVERY 12 HOURS SUBQ 08/08/19 21:00 09/22/19 20:59 08/20/19 20:58 Hydralazine HCl (Apresoline) 10 mg Q6H PRN IV SBP> 160 08/08/19 21:45 11/06/19 21:44 Lisinopril (PriniviL) 20 mg Q12HR GT 08/08/19 21:00 09/07/19 20:59 08/20/19 20:54 Metoprolol Tartrate (Lopressor) 25 mg Q12HR GT 08/09/19 09:00 11/07/19 08:59 08/20/19 20:54 Multivitamins (Multivitamins) 1 tab DAILY GT 08/09/19 09:00 09/08/19 08:59 08/20/19 08:38 Pantoprazole (Protonix) 40 mg EVERY 12 HOURS IVP 08/09/19 23:00 09/08/19 22:59 08/20/19 20:55 Assessment/Plan Assessment/Plan anemia possible GIB sinus tachycardia respiratory failure trach chronic encephalopathy GT site infection low K fevers better severe protein calorie malnutrition PLAN dc planning vent support feeds per gi - GT placement in am wound care to stoma monitor HH replace K monitor albumin levels ID follow up dc planning next 48 hours impression, plan, and exam edited and reviewed in detail care discussed with Isaiah Villatoro MD Aug 21, 2019 07:52
[2019-08-21 08:00] VITALS: BP 149/81
[2019-08-21] MEDS: Pantoprazole Inj IVP SCH ×2 (09:00→20:32)
[2019-08-21] MEDS: Amantadine 100mg cap GT SCH (09:00)
[2019-08-21] MEDS: Ascorbic Acid 500mg tab GT SCH (09:00)
[2019-08-21] MEDS: Lisinopril 20mg tab GT SCH ×2 (09:00→20:33)
[2019-08-21] MEDS: Heparin 5000 units/ml inj SUBQ SCH ×2 (09:01→20:35)
--- NOTE | 2019-08-21 09:30 | NUR ---
NURSE NOTES: Dr. Ochoa updated on patient WBC count this morning of 7.6 and temperature 99.2 f taken axillary. Addendum: 08/21/19 at 1334 by Augustine Hanley RN no verbal orders given at this time.
--- NOTE | 2019-08-21 09:56 | NUR ---
RD ASSESSMENT & RECOMMENDATIONS SEE CARE ACTIVITY FOR COMPLETE ASSESSMENT DAILY ESTIMATED NEEDS: Needs based on Critical care, wound 79gk 22-28 kcals/kg 4139-2650 total kcals 1.25-2 g protein/kg 99-158 g total protein 25-30 mL/kg 1492-7724 total fluid mLs NUTRITION DIAGNOSIS: Increased pro needs r/t wound healing as evidenced by pt w/ multiple wounds, refer to WC nurse eval, trach and peg dep, needs GT replacement, on NGT feeding for now. CURRENT TF:Osmolite 1.5 @60ml/hr x20 hrs ENTERAL NUTRITION RECOMMENDATIONS: Jevity 1.2 @ 65ml/hr x 24 hrs to provide 1560ml, 1872kcal, 86g prot, 1257ml free water - Initiate Jevity 1.2 @ 25ml/hr x 6hrs, advance 10ml q 4-6 hrs as tolerated to goal rate - Add PROSOURCE BID (22g pro) to better meet est pro needs. - Flush per MD. HOB over 30 degrees With consistently elev BGs, rec carb controlled TF formula of Glucerna 1.2 @ 65ml/hr x 24 hrs + Prosource 1pkt daily to provide 1560ml, 1872kcal, 94+11 g prot ADDITIONAL RECOMMENDATIONS: 1) Per SNF: 5'11" and 174 lbs 2) Wound care: add JANE BID via TF + Zn SO4 220 mg qd x10 days 3) Maintain calibrated bed scale wts 4) Monitor lytes, replete as needed .
--- NOTE | 2019-08-21 10:40 | Infectious Diseases Prog Note ---
"Assessment/Plan Assessment/Plan antibiotics : none A 1. pseudomonas | providencia pneumonia s/p rx COVID negative x 2 2. klebsiella | pseudomonas | VRE Gt site cellulitis 3. respiratory failure 4. leucocytosis improving P 1. continue off antibiotics 2. will follow up cultures 3. GT planned Subjective ROS Limited/Unobtainable: Yes Allergies: Coded Allergies: No Known Allergies (Unverified , 08/07/19) Objective Vital Signs Last 24 Hour Vital Signs Date Time Temp Pulse Resp B/P (MAP) Pulse Ox O2 Delivery O2 Flow Rate FiO2 08/21/19 09:00 149/81 08/21/19 08:59 91 149/81 08/21/19 08:59 91 149/81 08/21/19 08:00 35 08/21/19 08:00 99.2 91 18 149/81 (103) 100 08/21/19 08:00 Mechanical Ventilator 08/21/19 08:00 87 08/21/19 07:12 89 24 35 08/21/19 04:00 35 08/21/19 04:00 91 08/21/19 04:00 98.2 88 26 149/88 (108) 100 08/21/19 04:00 Mechanical Ventilator Mechanical Ventilator 08/21/19 03:00 79 24 35 08/21/19 00:00 85 08/21/19 00:00 Mechanical Ventilator Mechanical Ventilator 08/21/19 00:00 98.4 81 24 141/78 (99) 100 08/21/19 00:00 35 08/20/19 23:10 83 29 35 08/20/19 20:54 101 167/101 08/20/19 20:54 167/101 08/20/19 20:00 102 08/20/19 20:00 Mechanical Ventilator Mechanical Ventilator 08/20/19 20:00 35 08/20/19 20:00 99.0 101 28 159/98 (118) 100 08/20/19 19:45 97 25 35 08/20/19 16:04 87 08/20/19 16:00 99.1 86 26 137/83 (101) 100 08/20/19 16:00 35 08/20/19 16:00 Mechanical Ventilator Mechanical Ventilator 08/20/19 15:00 80 26 35 08/20/19 12:00 77 08/20/19 12:00 100.0 79 26 130/77 (94) 98 08/20/19 12:00 35 08/20/19 12:00 Mechanical Ventilator Mechanical Ventilator 08/20/19 11:05 72 24 35 Height (Feet): 5 Height (Inches): 10.00 Weight (Pounds): 216 HEENT: status post trach Respiratory/Chest: lungs clear Cardiovascular: normal rate, regular rhythm, no gallop/murmur Abdomen: soft, non tender Extremities: no edema Laboratory Tests Test 08/21/19 03:30 White Blood Count 7.6 K/UL (4.8-10.8) Red Blood Count 2.79 M/UL (4.70-6.10) L Hemoglobin 9.4 G/DL (14.2-18.0) L Hematocrit 28.9 % (42.0-52.0) L Mean Corpuscular Volume 104 FL (80-99) H Mean Corpuscular Hemoglobin 33.6 PG (27.0-31.0) H Mean Corpuscular Hemoglobin Concent 32.5 G/DL (32.0-36.0) Red Cell Distribution Width 13.0 % (11.6-14.8) Platelet Count 289 K/UL (150-450) Mean Platelet Volume 7.9 FL (6.5-10.1) Neutrophils (%) (Auto) 76.3 % (45.0-75.0) H Lymphocytes (%) (Auto) 12.6 % (20.0-45.0) L Monocytes (%) (Auto) 9.8 % (1.0-10.0) Eosinophils (%) (Auto) 0.8 % (0.0-3.0) Basophils (%) (Auto) 0.5 % (0.0-2.0) Sodium Level 138 MMOL/L (136-145) Potassium Level 3.5 MMOL/L (3.5-5.1) Chloride Level 101 MMOL/L (98-107) Carbon Dioxide Level 30 MMOL/L (21-32) Anion Gap 7 mmol/L (5-15) Blood Urea Nitrogen 15 mg/dL (7-18) Creatinine 1.0 MG/DL (0.55-1.30) Estimat Glomerular Filtration Rate > 60 mL/min (>60) Glucose Level 142 MG/DL (74-106) H Calcium Level 8.3 MG/DL (8.5-10.1) L Magnesium Level 2.0 MG/DL (1.8-2.4) Pro-B-Type Natriuretic Peptide 541 pg/mL (0-125) H Current Medications Medications (Trade) Dose Ordered Sig/Nury Route PRN Reason Start Time Stop Time Status Last Admin Dose Admin Acetaminophen (Tylenol) 325 mg Q6H PRN RECTAL Temp >100.5 08/08/19 21:45 09/07/19 21:44 Acetaminophen (Tylenol) 650 mg Q4H PRN GT Temp >100.5 08/08/19 10:45 09/07/19 10:44 08/20/19 20:59 Acetaminophen (Tylenol) 650 mg Q4H PRN GT Mild Pain (Pain Scale 1-3) 08/08/19 10:45 09/07/19 10:44 Amantadine HCl (Symmetrel) 100 mg DAILY GT 08/09/19 09:00 09/08/19 08:59 08/21/19 09:00 Amlodipine Besylate (Norvasc) 5 mg DAILY GT 08/10/19 09:00 09/09/19 08:59 08/21/19 08:59 Ascorbic Acid (Vitamin C) 250 mg DAILY GT 08/09/19 09:00 09/08/19 08:59 08/21/19 09:00 Doxazosin Mesylate (Cardura) 2 mg QHS GT 08/08/19 21:00 09/07/19 20:59 08/20/19 20:53 Folic Acid (Folate) 1 mg DAILY GT 08/08/19 14:30 09/07/19 14:29 08/21/19 09:00 Heparin Sodium (Porcine) (Heparin 5000 units/ml) 5,000 units EVERY 12 HOURS SUBQ 08/08/19 21:00 09/22/19 20:59 08/21/19 09:01 Hydralazine HCl (Apresoline) 10 mg Q6H PRN IV SBP> 160 08/08/19 21:45 11/06/19 21:44 Lisinopril (PriniviL) 20 mg Q12HR GT 08/08/19 21:00 09/07/19 20:59 08/21/19 09:00 Metoprolol Tartrate (Lopressor) 25 mg Q12HR GT 08/09/19 09:00 11/07/19 08:59 08/21/19 08:59 Multivitamins (Multivitamins) 1 tab DAILY GT 08/09/19 09:00 09/08/19 08:59 08/21/19 08:59 Pantoprazole (Protonix) 40 mg EVERY 12 HOURS IVP 08/09/19 23:00 09/08/19 22:59 08/21/19 09:00 Jude Ochoa MD Aug 21, 2019 10:40"
[2019-08-21 12:00] VITALS: BP 135/76
--- NOTE | 2019-08-21 12:30 | NUR ---
NURSE NOTES: Dr. Hawk assessed patients g-tube site, two small drops of pus was drained from the site, will proceed with g-tube placement tomorrow, will obtain consent for procedure tomorrow.
--- NOTE | 2019-08-21 15:00 | NUR ---
NURSE NOTES: Consent obtained from [facility] for G-tube placement, verified by KEHINDE mcpherson.
--- NOTE | 2019-08-21 15:05 | NUR ---
CASE MANAGEMENT: REVIEW SI: ANEMIA . A-FIB . LEAKING G-TUBE EGD w/PEG PLACEMENT SCHEDULE FOR 08/21 T 99.2 HR 87 RR 18 BP 149/81 SAT 100% MECH VENT FIO2 35 H/H 9.4/28.9 BNP 541 IS: PROTONIX IV Q12HR HEPARIN SUBQ Q12HR LOPRESSOR GT Q12HR NGT FEEDING PACKING & DRESSING @ G-TUBE SITE DUE TO DRAINAGE STEP DOWN UNIT STATUS DCP: PATIENT IS FROM [facility]
[2019-08-21 16:00] VITALS: BP 148/76
--- NOTE | 2019-08-21 16:48 | NUR ---
HAND-OFF: Report given to KEHINDE Ayala.
--- NOTE | 2019-08-21 16:48 | NUR ---
NURSE NOTES: Received report from KEHINDE Bradshaw. Pt in bed awake in bed. IV site in right hand 18G, 20G SL patent and asymptomatic. bilateral soft wrist restraint intact and patent. Will continue plan of care,
--- NOTE | 2019-08-21 18:51 | NUR ---
RESPIRATORY NOTE: Received pt on AC 14, 450VT, 35%, PEEP +5. Pt is trach-dependent w/ a cuffed, Shiley 8 tube. Pt asleep/disoriented. B/S daniel. rhonchi, sxn small to moderate amounts of thick/thin, pale-yellow secretions. Vent plugged into red outlet, ambubag at bedside. Pt in no apparent distress at this time. Will continue plan of care.
--- NOTE | 2019-08-21 19:15 | NUR ---
HAND-OFF: Report given to KEHINDE Chu/KEHINDE Calle. Pt remains stable.
--- NOTE | 2019-08-21 19:43 | General Progress Note ---
Assessment/Plan Assessment/Plan: Assessment - GT migration out of stomach - Mushroom cap in anterior abdominal wall (GT removed) - Abdominal wall induration and discharge --> definite improvement over past few days - anemia - OB (+) stools - due to ulcerative gastritis, no colonoscopy per DPOA - s/p Trach Recommendations - PPI - NGT for meds and feeds - off abx per ID - follow exam and labs - transfuse as needed - d/c PO Iron ----> IV Fe - laxative, PRN - PEG placement in am Subjective Allergies: Coded Allergies: No Known Allergies (Unverified , 08/07/19) Subjective above noted NAD GT site with only two drops of purulent drainage area of induration smaller d/w DTR re second attempt at PEG placement Objective Last 24 Hour Vital Signs Date Time Temp Pulse Resp B/P (MAP) Pulse Ox O2 Delivery O2 Flow Rate FiO2 08/21/19 18:48 77 23 35 08/21/19 16:00 99.2 78 18 148/76 (100) 100 08/21/19 16:00 35 08/21/19 16:00 Mechanical Ventilator 08/21/19 15:59 75 08/21/19 14:55 95 20 35 08/21/19 12:00 Mechanical Ventilator 08/21/19 12:00 99.2 65 19 135/76 (95) 100 08/21/19 12:00 67 08/21/19 12:00 35 08/21/19 10:48 68 23 35 08/21/19 09:00 149/81 08/21/19 08:59 91 149/81 08/21/19 08:59 91 149/81 08/21/19 08:00 35 08/21/19 08:00 99.2 91 18 149/81 (103) 100 08/21/19 08:00 Mechanical Ventilator 08/21/19 08:00 87 08/21/19 07:12 89 24 35 08/21/19 04:00 35 08/21/19 04:00 91 08/21/19 04:00 98.2 88 26 149/88 (108) 100 08/21/19 04:00 Mechanical Ventilator Mechanical Ventilator 08/21/19 03:00 79 24 35 08/21/19 00:00 85 08/21/19 00:00 Mechanical Ventilator Mechanical Ventilator 08/21/19 00:00 98.4 81 24 141/78 (99) 100 08/21/19 00:00 35 08/20/19 23:10 83 29 35 08/20/19 20:54 101 167/101 08/20/19 20:54 167/101 08/20/19 20:00 102 08/20/19 20:00 Mechanical Ventilator Mechanical Ventilator 08/20/19 20:00 35 08/20/19 20:00 99.0 101 28 159/98 (118) 100 08/20/19 19:45 97 25 35 Intake and Output 08/20/19 08/21/19 19:00 07:00 Intake Total 730 ml 700 ml Output Total 425 ml 400 ml Balance 305 ml 300 ml Free Water 130 ml 100 ml Tube Feeding 600 ml 600 ml Output Urine Total 425 ml 400 ml # Bowel Movements 2 Laboratory Tests 08/21/19 03:30: White Blood Count 7.6, Red Blood Count 2.79L, Hemoglobin 9.4L, Hematocrit 28.9L , Mean Corpuscular Volume 104H, Mean Corpuscular Hemoglobin 33.6H, Mean Corpuscular Hemoglobin Concent 32.5, Red Cell Distribution Width 13.0, Platelet Count 289, Mean Platelet Volume 7.9, Neutrophils (%) (Auto) 76.3H, Lymphocytes ( %) (Auto) 12.6L, Monocytes (%) (Auto) 9.8, Eosinophils (%) (Auto) 0.8, Basophils (%) (Auto) 0.5, Sodium Level 138, Potassium Level 3.5, Chloride Level 101, Carbon Dioxide Level 30, Anion Gap 7, Blood Urea Nitrogen 15, Creatinine 1.0, Estimat Glomerular Filtration Rate > 60, Glucose Level 142H, Calcium Level 8.3L, Magnesium Level 2.0, Pro-B-Type Natriuretic Peptide 541H Height (Feet): 5 Height (Inches): 10.00 Weight (Pounds): 211 Objective Obese AA Man NCAT (+) Trach coarse BS RR Abd obese, packed old GT site, induration smaller in size trace edema non interactive Rubia Hawk MD Aug 21, 2019 19:43
--- NOTE | 2019-08-21 19:50 | NUR ---
NURSE NOTES: Received patient report from KEHINDE Hartley. Patient is noted on the bed with a right soft restraint. No s/s of respiratory distress. Pt is on vent following setting; AC 14, TV 450, FiO2 35%, PEEP 5. Pt is on lindsey and NG tube noted. Feeding Osmolite 1.5 @ 60mL/hr. Will held feeding from midnight for possible EGD with PEG placement as ordered. Will continue monitor and follow plan of care.
[2019-08-21 20:00] VITALS: BP 127/76
[2019-08-21] MEDS: Doxazosin 4mg tab GT SCH (20:32)
--- NOTE | 2019-08-21 21:52 | Surgery Progress Note ---
Surgery Progress Note Subjective Additional Comments improved peg tomorrow Objective Last 24 Hour Vital Signs Date Time Temp Pulse Resp B/P (MAP) Pulse Ox O2 Delivery O2 Flow Rate FiO2 08/21/19 20:33 127/76 08/21/19 20:32 72 127/76 08/21/19 20:00 98.2 72 22 127/76 (93) 100 08/21/19 18:48 77 23 35 08/21/19 16:00 99.2 78 18 148/76 (100) 100 08/21/19 16:00 35 08/21/19 16:00 Mechanical Ventilator 08/21/19 15:59 75 08/21/19 14:55 95 20 35 08/21/19 12:00 Mechanical Ventilator 08/21/19 12:00 99.2 65 19 135/76 (95) 100 08/21/19 12:00 67 08/21/19 12:00 35 08/21/19 10:48 68 23 35 08/21/19 09:00 149/81 08/21/19 08:59 91 149/81 08/21/19 08:59 91 149/81 08/21/19 08:00 35 08/21/19 08:00 99.2 91 18 149/81 (103) 100 08/21/19 08:00 Mechanical Ventilator 08/21/19 08:00 87 08/21/19 07:12 89 24 35 08/21/19 04:00 35 08/21/19 04:00 91 08/21/19 04:00 98.2 88 26 149/88 (108) 100 08/21/19 04:00 Mechanical Ventilator Mechanical Ventilator 08/21/19 03:00 79 24 35 08/21/19 00:00 85 08/21/19 00:00 Mechanical Ventilator Mechanical Ventilator 08/21/19 00:00 98.4 81 24 141/78 (99) 100 08/21/19 00:00 35 08/20/19 23:10 83 29 35 I&O Intake and Output 08/20/19 08/21/19 19:00 07:00 Intake Total 730 ml 700 ml Output Total 425 ml 400 ml Balance 305 ml 300 ml Free Water 130 ml 100 ml Tube Feeding 600 ml 600 ml Output Urine Total 425 ml 400 ml # Bowel Movements 2 Dressing: other Wound: other Drains: other Cardiovascular: RSR Respiratory: decreased breath sounds Abdomen: soft, non-tender, present bowel sounds Extremities: no tenderness, no cyanosis Laboratory Tests Test 08/21/19 03:30 White Blood Count 7.6 K/UL (4.8-10.8) Red Blood Count 2.79 M/UL (4.70-6.10) L Hemoglobin 9.4 G/DL (14.2-18.0) L Hematocrit 28.9 % (42.0-52.0) L Mean Corpuscular Volume 104 FL (80-99) H Mean Corpuscular Hemoglobin 33.6 PG (27.0-31.0) H Mean Corpuscular Hemoglobin Concent 32.5 G/DL (32.0-36.0) Red Cell Distribution Width 13.0 % (11.6-14.8) Platelet Count 289 K/UL (150-450) Mean Platelet Volume 7.9 FL (6.5-10.1) Neutrophils (%) (Auto) 76.3 % (45.0-75.0) H Lymphocytes (%) (Auto) 12.6 % (20.0-45.0) L Monocytes (%) (Auto) 9.8 % (1.0-10.0) Eosinophils (%) (Auto) 0.8 % (0.0-3.0) Basophils (%) (Auto) 0.5 % (0.0-2.0) Sodium Level 138 MMOL/L (136-145) Potassium Level 3.5 MMOL/L (3.5-5.1) Chloride Level 101 MMOL/L (98-107) Carbon Dioxide Level 30 MMOL/L (21-32) Anion Gap 7 mmol/L (5-15) Blood Urea Nitrogen 15 mg/dL (7-18) Creatinine 1.0 MG/DL (0.55-1.30) Estimat Glomerular Filtration Rate > 60 mL/min (>60) Glucose Level 142 MG/DL (74-106) H Calcium Level 8.3 MG/DL (8.5-10.1) L Magnesium Level 2.0 MG/DL (1.8-2.4) Pro-B-Type Natriuretic Peptide 541 pg/mL (0-125) H Plan Problems: (1) Anemia (2) Unstageable decubitus ulcer Assessment & Plan: Pt presented on admission with multiple Pressure Injuries. Pt has a Tracheostomy and no areas of skin concerns noted under tracheal collar. Unstageable Sacral Pressure Injury(L)9.5cm x (W)10cm. Base of wound is 75% mixed slough and eschar,25% carolynn, Edges adherent with surrounding purple and maroon indurated borders. No odor or exudate noted. DTPI L Heel (L)3.7cm x (W)4.5cm. Base of wound is maroon and indurated with surrounding non-Blanching erythema. Callused skin periwound. Reabsorbing DTPI [place] L Foot (L)3.3cm x (W)2.5cm. Base of Pressure Injury is maroon but dry. No erythema or fluctuance periwound. DTPI Lateral L 1st metatarsal(L)1.5cm x (W)2cm. Base of wound is maroon and indurated.Callused skin periwound. DTPI Lateral R Heel (L)4.4cm x (W)6cm. Base of wound is indurated ,purple with surrounding maroon and fluctuant borders.Callusing periwound. DTPI R Hallux (L)1.8cm x (W)1.9cm. Base of wound is indurated and purple. Callusing periwound. DTPI Lateral R 1st metatarsal(L)2cm x (W)2.7cm. Base of wound is indurated and maroon. Callusing periwound. Tx.Plan: Cleanse Sacral wound with Saline. Apply TheraHoney. Apply Moisture Barrier Paste periwound. Cover with Optifoam drsg. Change every 3 days and prn. Apply Cavilon Skin Barrier to wounds L L Heel , L st metatarsal,Dorsal L Foot. Cover each Site with Optifoam drsg. Change every 7 days and prn. Apply Cavilon Skin Barrier to R Heel, R Hallux, R 1st metatarsal. Cover each site with Optifoam drsg. Change every 7 days and prn. APM/KHOA Mattress. Reposition at least every 2hours or as tolerated. Off-Load Heels with Pillows. (3) Leaking PEG tube Assessment & Plan: prior peg removed plan new placement soon will monitor site drainage noted packing placed Minimal drainage from prior G-tube site discussed with nursing about packing and dressings will continue current care plan plan for PEG tube once improved Lung bases: Atelectasis at the lung bases. Liver: Unremarkable. No mass. Gallbladder and bile ducts: Unremarkable. No calcified stones. No ductal dilation. Pancreas: Unremarkable. No mass. No ductal dilation. Spleen: Unremarkable. No splenomegaly. Adrenals: Unremarkable. No mass. Kidneys and ureters: Nonobstructing stone in the lower pole of the right kidney. Stomach and bowel: Tract from a recent percutaneous gastrostomy tube which is healing in the subcutaneous fat. Surrounding inflammatory changes but no abscess. Severe colonic diverticulosis within the sigmoid colon with mural hypertrophy however no surrounding inflammatory changes to suggest acute diverticulitis. Underlying malignancy not excluded. No obstruction. Intraperitoneal space: Unremarkable. No free air. No significant fluid collection. Bones/joints: No acute fracture. No dislocation. Soft tissues: Fat stranding in the ventral abdomen. Vasculature: Unremarkable. No abdominal aortic aneurysm. Lymph nodes: Unremarkable. No enlarged lymph nodes. Tubes, lines and devices: Thakkar catheter within the bladder. IMPRESSION: 1. Severe colonic diverticulosis within the sigmoid colon with mural hypertrophy however no surrounding inflammatory changes to suggest acute diverticulitis. Underlying malignancy not excluded. 2. Tract from a recent percutaneous gastrostomy tube which is healing in the subcutaneous fat. Surrounding inflammatory changes but no abscess. (4) Person under investigation for COVID-19 Assessment & Plan: There is a tracheostomy. Calcified granuloma is seen in the right midlung. Granulomatous calcified nodes are seen in the left aortopulmonary window. No definite infiltrates, effusions, congestion. The heart size is upper limits normal. Impression: No definite acute abnormality Evidence of old granulomatous disease Homero Cummings Aug 21, 2019 21:52
[2019-08-22] VITALS: BP 115/60
[2019-08-22 04:00] VITALS: BP 150/84
--- NOTE | 2019-08-22 04:15 | Progress Note ---
DATE: 08/21/2019 CARDIOLOGY PROGRESS NOTE SUBJECTIVE: The patient is status post G-tube replacement without complications. ____ previously placed in the abdominal wall was removed. OBJECTIVE: VITAL SIGNS: Blood pressure 148/76, pulse 78, respirations 18, temperature 99.2. LUNGS: Clear. CARDIAC: Regular. Normal S1 and S2. No bradycardic episodes of concern. ABDOMEN: Slightly distended, but soft. EXTREMITIES: There is no edema. LABORATORY DATA: Monitored rhythm sinus. ASSESSMENT: 1. Status post G-tube revision. 2. Hypokalemia, corrected. 3. Ventilator-dependent respiratory failure. 4. G-tube site infection. 5. Paroxysmal bradyarrhythmias due to increased vagal tone, resolved. 6. Hypomagnesemia, status post replacement. 7. Acute on chronic diastolic congestive heart failure, clinically compensated. PLAN: 1. Cardiac monitoring. 2. Intravenous fluids. 3. Pending stabilization of G-tube site. 4. Replace electrolytes as needed. 5. Monitor clinical parameters and volume status. Augustine Fisher M.D. DR: ELIESER JOB#: [id number] CC:
[2019-08-22] MEDS ORDERED: Piperacillin/Tazobactam 3.375 GM in NS 110 ML IVPB SCH (06:45)
[2019-08-22] MEDS ORDERED: NS 500ML IVPB ONE (06:55)
--- NOTE | 2019-08-22 06:58 | Anethesia Preoperative Eval ---
Anesthesia Pre-op PMH/ROS General Date of Evaluation: Aug 22, 2019 Time of Evaluation: 06:45 Anesthesiologist: austyn ASA Score: ASA 4 Mallampati Score Class I : Soft palate, uvula, fauces, pillars visible Class II: Soft palate, uvula, fauces visible Class III: Soft palate, base of uvula visible Class IV: Only hard plate visible Mallampati Classification: Class II Surgeon: roderick Diagnosis: malfunctioning/leaking peg Surgical Procedure: peg Anesthesia History: none Social History: smoking - nonsmoker Family History: no anesthesia problems Allergies: Coded Allergies: No Known Allergies (Unverified , 08/07/19) Medications: see eMAR Patient NPO?: Yes Past Medical History Pulmonary: Reports: other - respiratory failure, tracheostomy Gastrointestinal/Genitourinary: 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 Exam Physician Exam Last Vital Signs Date Time Temp Pulse Resp B/P (MAP) Pulse Ox O2 Delivery O2 Flow Rate FiO2 08/22/19 03:05 72 16 35 08/22/19 00:00 98.8 115/60 (78) 100 08/22/19 00:00 Mechanical Ventilator Neurologic: other - obtunded Cardiovascular: RRR Respiratory: other - tracheostomy, on ventilator Gastrointestinal: other - g-tube removed Airway Exam Mallampati Score: Class II MO: limited Neck: tracheostomy TMD: 2fb ROM: limited Anesthesia Pre-op A/P Labs Microbiology Date/Time Source Procedure Growth Status 08/11/19 09:50 Other Gram Stain - Final Complete 08/11/19 09:50 Wound Culture - Final Klebsiella Pneumoniae Esbl Pseudomonas Aeruginosa Enterococcus Faecalis - Vre Complete 08/11/19 12:30 Sputum Gram Stain - Final Complete 08/11/19 12:30 Sputum Culture - Final Providencia Stuartii Pseudomonas Aeruginosa Complete 08/07/19 20:40 Arm Right Blood Culture - Final NO GROWTH AFTER 5 DAYS Complete Labs Test 08/20/19 05:30 08/21/19 03:30 White Blood Count 9.1 K/UL (4.8-10.8) 7.6 K/UL (4.8-10.8) Red Blood Count 2.68 M/UL (4.70-6.10) 2.79 M/UL (4.70-6.10) Hemoglobin 9.1 G/DL (14.2-18.0) 9.4 G/DL (14.2-18.0) Hematocrit 27.9 % (42.0-52.0) 28.9 % (42.0-52.0) Mean Corpuscular Volume 104 FL (80-99) 104 FL (80-99) Mean Corpuscular Hemoglobin 33.7 PG (27.0-31.0) 33.6 PG (27.0-31.0) Mean Corpuscular Hemoglobin Concent 32.4 G/DL (32.0-36.0) 32.5 G/DL (32.0-36.0) Red Cell Distribution Width 13.0 % (11.6-14.8) 13.0 % (11.6-14.8) Platelet Count 282 K/UL (150-450) 289 K/UL (150-450) Mean Platelet Volume 7.7 FL (6.5-10.1) 7.9 FL (6.5-10.1) Neutrophils (%) (Auto) 79.2 % (45.0-75.0) 76.3 % (45.0-75.0) Lymphocytes (%) (Auto) 11.2 % (20.0-45.0) 12.6 % (20.0-45.0) Monocytes (%) (Auto) 8.3 % (1.0-10.0) 9.8 % (1.0-10.0) Eosinophils (%) (Auto) 0.7 % (0.0-3.0) 0.8 % (0.0-3.0) Basophils (%) (Auto) 0.5 % (0.0-2.0) 0.5 % (0.0-2.0) Erythrocyte Sedimentation Rate 125 MM/HR (0-20) Sodium Level 138 MMOL/L (136-145) 138 MMOL/L (136-145) Potassium Level 3.1 MMOL/L (3.5-5.1) 3.5 MMOL/L (3.5-5.1) Chloride Level 100 MMOL/L (98-107) 101 MMOL/L (98-107) Carbon Dioxide Level 31 MMOL/L (21-32) 30 MMOL/L (21-32) Anion Gap 7 mmol/L (5-15) 7 mmol/L (5-15) Blood Urea Nitrogen 11 mg/dL (7-18) 15 mg/dL (7-18) Creatinine 0.9 MG/DL (0.55-1.30) 1.0 MG/DL (0.55-1.30) Estimat Glomerular Filtration Rate > 60 mL/min (>60) > 60 mL/min (>60) Glucose Level 136 MG/DL (74-106) 142 MG/DL (74-106) Calcium Level 7.8 MG/DL (8.5-10.1) 8.3 MG/DL (8.5-10.1) Total Bilirubin 0.3 MG/DL (0.2-1.0) Aspartate Amino Transf (AST/SGOT) 18 U/L (15-37) Alanine Aminotransferase (ALT/SGPT) 27 U/L (12-78) Alkaline Phosphatase 94 U/L (46-116) C-Reactive Protein, Quantitative 3.8 mg/dL (0.00-0.90) Total Protein 7.2 G/DL (6.4-8.2) Albumin 1.7 G/DL (3.4-5.0) Globulin 5.5 g/dL Albumin/Globulin Ratio 0.3 (1.0-2.7) Magnesium Level 2.0 MG/DL (1.8-2.4) Pro-B-Type Natriuretic Peptide 541 pg/mL (0-125) Risk Assessment & Plan Assessment: [email or web address] Plan: mac Status Change Before Surgery: No Pre-Antibiotics Drug: zosyn Given Within 1 Hr of Incision: Yes Time Given: 07:25 Nicky Nolan MD Aug 22, 2019 06:58
[2019-08-22] MEDS ORDERED: DiphenhydrAMINE 50mg/ml Inj IVP PRN (07:00)
[2019-08-22] MEDS ORDERED: Atropine Inj 1mg/10ml Syr IV PRN (07:00)
[2019-08-22] MEDS ORDERED: Lidocaine 1% MPF 10mg/ml 5ml ONE (07:00)
[2019-08-22] MEDS ORDERED: fentaNYL 100 mcg/2 mL IV PRN (07:00)
[2019-08-22] MEDS ORDERED: Midazolam 2mg/2ml Inj IVP PRN (07:00)
--- NOTE | 2019-08-22 07:15 | Pre-Procedure Note/Attestation ---
Pre-Procedure Note/Attestation Complete Prior to Procedure Planned Procedure: not applicable Procedure Narrative: EGD PEG Indications for Procedure Pre-Operative Diagnosis: dysphagia Attestation I attest that I discussed the nature of the procedure; its benefits; risks and complications; and alternatives (and the risks and benefits of such alternatives ), prior to the procedure, with the patient (or the patient's legal parts representative). I attest that, if there was a reasonable possibility of needing a blood transfusion, the patient (or the patient's legal parts representative) was given the [facility] standardized written summary, pursuant to the [place] Blood Safety Act ([place] Health and Safety Code # 1645, as amended). I attest that I re-evaluated the patient just prior to the surgery and that there has been no change in the patient's H&P, except as documented below: Rubia Hawk MD Aug 22, 2019 07:15
--- NOTE | 2019-08-22 07:15 | General Progress Note ---
Assessment/Plan Assessment/Plan: Assessment - GT migration out of stomach - Mushroom cap in anterior abdominal wall (GT removed) - Abdominal wall induration and discharge --> definite improvement over past few days - anemia - OB (+) stools - due to ulcerative gastritis, no colonoscopy per DPOA - s/p Trach - Macrocytic indicies - will check B12/folate Recommendations - PPI - NPO - off abx per ID - Pre op Zosyn, per micro findings from GT wound - follow exam and labs - transfuse as needed - d/c PO Iron ----> IV Fe - laxative, PRN - PEG placement today Subjective Allergies: Coded Allergies: No Known Allergies (Unverified , 08/07/19) Subjective above noted NAD no events overnight NPO for PEG Objective Last 24 Hour Vital Signs Date Time Temp Pulse Resp B/P (MAP) Pulse Ox O2 Delivery O2 Flow Rate FiO2 08/22/19 03:05 72 16 35 08/22/19 00:00 77 08/22/19 00:00 98.8 74 18 115/60 (78) 100 08/22/19 00:00 Mechanical Ventilator 08/22/19 00:00 35 08/21/19 23:03 79 34 35 08/21/19 20:33 127/76 08/21/19 20:32 72 127/76 08/21/19 20:00 Mechanical Ventilator 08/21/19 20:00 89 08/21/19 20:00 98.2 72 22 127/76 (93) 100 08/21/19 18:48 77 23 35 08/21/19 16:00 99.2 78 18 148/76 (100) 100 08/21/19 16:00 35 08/21/19 16:00 Mechanical Ventilator 08/21/19 15:59 75 08/21/19 14:55 95 20 35 08/21/19 12:00 Mechanical Ventilator 08/21/19 12:00 99.2 65 19 135/76 (95) 100 08/21/19 12:00 67 08/21/19 12:00 35 08/21/19 10:48 68 23 35 08/21/19 09:00 149/81 08/21/19 08:59 91 149/81 08/21/19 08:59 91 149/81 08/21/19 08:00 35 08/21/19 08:00 99.2 91 18 149/81 (103) 100 08/21/19 08:00 Mechanical Ventilator 08/21/19 08:00 87 Intake and Output 08/21/19 08/22/19 19:00 07:00 Intake Total 610 ml 300 ml Output Total 350 ml Balance 260 ml 300 ml Free Water 50 ml Tube Feeding 540 ml 300 ml Other 20 ml Output Urine Total 350 ml # Bowel Movements 1 Height (Feet): 5 Height (Inches): 10.00 Weight (Pounds): 198 Objective Obese AA Man NCAT (+) Trach coarse BS RR Abd obese, packed old GT site, induration smaller in size trace edema non interactive Rubia Hawk MD Aug 22, 2019 07:15
--- NOTE | 2019-08-22 07:44 | NUR ---
HAND-OFF: Report given to KEHINDE Hawkins. Patient is stable at this moment. Endorsed plan of care.
--- NOTE | 2019-08-22 07:45 | NUR ---
NURSE NOTES: Received report from Kimberley/Alva RN. Pt. currently having EGD with possible peg placement at bedside with Dr. Hawk and Dr. Homar Brunner.
[2019-08-22 08:00] VITALS: BP 122/84
--- NOTE | 2019-08-22 08:03 | Immediate Post-Op Evaluation ---
Immediate Post-Op Evalulation Immediate Post-Op Evalulation Procedure: peg Date of Evaluation: Aug 22, 2019 Time of Evaluation: 08:02 IV Fluids: 300ml 0.9ns Blood Products: none Estimated Blood Loss: negligible Blood Pressure Systolic: 120 Blood Pressure Diastolic: 80 Pulse Rate: 84 Respiratory Rate: 18 O2 Sat by Pulse Oximetry: 100 Temperature (Fahrenheit): 98.6 Pain Score (1-10): 0 Nausea: No Vomiting: No Complications none Patient Status: awake, reacts, patent, ventilated Hydration Status: adequate Drug: zosyn Given Within 1 Hr of Incision: Yes - 0725 Time Given: 07:25 Nicky Nolan MD Aug 22, 2019 08:03
--- NOTE | 2019-08-22 08:04 | 48 Hour Post Anesthesia Eval ---
Post Anesthesia Evaluation Procedure: peg Date of Evaluation: Aug 22, 2019 Time of Evaluation: 08:04 Blood Pressure Systolic: 124 0: 82 Pulse Rate: 85 Respiratory Rate: 16 Temperature (Fahrenheit): 98.6 O2 Sat by Pulse Oximetry: 100 Airway: patent Nausea: No Vomiting: No Pain Intensity: 0 Hydration Status: adequate Cardiopulmonary Status: stable Mental Status/LOC: patient returned to baseline Post-Anesthesia Complications: none Follow-up care needed: N/A Nicky Nolan MD Aug 22, 2019 08:04
--- NOTE | 2019-08-22 08:08 | NUR ---
NURSE NOTES: S/P GT placement. Pt. stable at present.
--- NOTE | 2019-08-22 08:10 | Endoscopy Procedure Note ---
Endoscopy Procedure Note General Indication for Procedure: dysphagia Procedures Performed: PEG Operative Findings/Diagnosis: improved ulcerative gastritis, s/p PEG Specimen: none Pt Tolerated Procedure Well: Yes Estimated Blood Loss: none Anesthesia Anesthesiologist: Dr Homar Brunner Anesthesia: MAC Medications Medication Given: see anesthesia record Inserted Devices Implant(s) used?: No GI Core Measures 50 yrs or older w/o bx or poly: Not Applicable 10yrs. F/U recommended: Not Applicable Rubia Hawk MD Aug 22, 2019 08:10
--- NOTE | 2019-08-22 08:11 | Brief Operative Note ---
Immediate Post Operative Note Operative Note Chief Complaint: Dysphagia Pre-op Diagnosis: dysphagia Procedure: EGD, bx, EUA Post-op Diagnosis: improved ulcerative gastritis, s/p PEG Surgeon: Kenn Anesthesiologist: Homar Brunner Anesthesia: MAC Specimen: none Complications: none Condition: stable Fluids: Per anesthesia Estimated Blood Loss: none Drains: none Implant(s) used?: No Rubia Hawk MD Aug 22, 2019 08:11
[2019-08-22] MEDS: Amantadine 100mg cap GT SCH (09:00)
[2019-08-22] MEDS: Ascorbic Acid 500mg tab GT SCH (09:00)
[2019-08-22] MEDS: Pantoprazole Inj IVP SCH ×2 (09:00→20:14)
[2019-08-22] MEDS: Lisinopril 20mg tab GT SCH ×2 (09:00→20:20)
[2019-08-22] MEDS: Heparin 5000 units/ml inj SUBQ SCH ×2 (09:00→20:18)
[2019-08-22] MEDS: D5 1/2NS 1,000 ML IV SCH ×2 (09:18→21:49)
--- NOTE | 2019-08-22 10:00 | NUR ---
NURSE NOTES: B/P now 100/71 will cont. to monitor.
--- NOTE | 2019-08-22 10:27 | Infectious Diseases Prog Note ---
"Assessment/Plan Assessment/Plan antibiotics : zosyn A 1. pseudomonas | providencia pneumonia s/p rx COVID negative x 2 2. klebsiella | pseudomonas | VRE Gt site cellulitis 3. respiratory failure 4. leucocytosis improving P 1. zosyn started 2. will follow up cultures 3. GT planned Subjective ROS Limited/Unobtainable: Yes Allergies: Coded Allergies: No Known Allergies (Unverified , 08/07/19) Objective Vital Signs Last 24 Hour Vital Signs Date Time Temp Pulse Resp B/P (MAP) Pulse Ox O2 Delivery O2 Flow Rate FiO2 08/22/19 09:00 101 83/56 08/22/19 09:00 83/56 08/22/19 08:04 85 16 100 08/22/19 08:03 84 18 100 08/22/19 08:00 35 08/22/19 08:00 98.6 116 20 122/84 (97) 97 08/22/19 06:48 74 16 35 08/22/19 04:00 Mechanical Ventilator 08/22/19 04:00 98.6 89 27 150/84 (106) 99 08/22/19 04:00 35 08/22/19 03:05 72 16 35 08/22/19 03:01 68 08/22/19 00:00 77 08/22/19 00:00 98.8 74 18 115/60 (78) 100 08/22/19 00:00 Mechanical Ventilator 08/22/19 00:00 35 08/21/19 23:03 79 34 35 08/21/19 20:33 127/76 08/21/19 20:32 72 127/76 08/21/19 20:00 Mechanical Ventilator 08/21/19 20:00 89 08/21/19 20:00 98.2 72 22 127/76 (93) 100 08/21/19 18:48 77 23 35 08/21/19 16:00 99.2 78 18 148/76 (100) 100 08/21/19 16:00 35 08/21/19 16:00 Mechanical Ventilator 08/21/19 15:59 75 08/21/19 14:55 95 20 35 08/21/19 12:00 Mechanical Ventilator 08/21/19 12:00 99.2 65 19 135/76 (95) 100 08/21/19 12:00 67 08/21/19 12:00 35 08/21/19 10:48 68 23 35 Height (Feet): 5 Height (Inches): 10.00 Weight (Pounds): 198 HEENT: status post trach Respiratory/Chest: lungs clear Cardiovascular: normal rate, regular rhythm, no gallop/murmur Abdomen: soft, non tender Extremities: no edema Laboratory Tests Test 08/22/19 08:05 Vitamin B12 Level 631 PG/ML (193-986) Current Medications Medications (Trade) Dose Ordered Sig/Nury Route PRN Reason Start Time Stop Time Status Last Admin Dose Admin Acetaminophen (Tylenol) 325 mg Q6H PRN RECTAL Temp >100.5 08/08/19 21:45 09/07/19 21:44 Acetaminophen (Tylenol) 650 mg Q4H PRN GT Temp >100.5 08/08/19 10:45 09/07/19 10:44 08/20/19 20:59 Acetaminophen (Tylenol) 650 mg Q4H PRN GT Mild Pain (Pain Scale 1-3) 08/08/19 10:45 09/07/19 10:44 Acetaminophen (Tylenol) 650 mg Q4H PRN ORAL Mild Pain (Pain Scale 1-3) 08/22/19 07:00 08/22/19 15:00 Al Hydroxide/Mg Hydroxide (Mylanta) 15 ml Q1H PRN ORAL gi upset 08/22/19 07:00 08/22/19 15:00 Amantadine HCl (Symmetrel) 100 mg DAILY GT 08/09/19 09:00 09/08/19 08:59 08/21/19 09:00 Amlodipine Besylate (Norvasc) 5 mg DAILY GT 08/10/19 09:00 09/09/19 08:59 08/21/19 08:59 Ascorbic Acid (Vitamin C) 250 mg DAILY GT 08/09/19 09:00 09/08/19 08:59 08/21/19 09:00 Atropine Sulfate (Atropine) 0.5 mg Q5M PRN IV bpm less than 45 08/22/19 07:00 08/22/19 15:00 Dextrose/Sodium Chloride 1,000 ml @ 75 mls/hr [id number] IV 08/22/19 08:15 09/21/19 08:14 08/22/19 09:18 Diphenhydramine HCl (Benadryl) 25 mg Q15M PRN IVP Itching 08/22/19 07:00 08/22/19 15:00 Doxazosin Mesylate (Cardura) 2 mg QHS GT 08/08/19 21:00 09/07/19 20:59 08/21/19 20:32 Fentanyl Citrate (Sublimaze 100 mcg/2 mL) 25 mcg Q10M PRN IV Moderate Pain (Pain Scale 4-6) 08/22/19 07:00 08/22/19 15:00 Folic Acid (Folate) 1 mg DAILY GT 08/08/19 14:30 09/07/19 14:29 08/21/19 09:00 Heparin Sodium (Porcine) (Heparin 5000 units/ml) 5,000 units EVERY 12 HOURS SUBQ 08/08/19 21:00 09/22/19 20:59 08/21/19 20:35 Hydralazine HCl (Apresoline) 5 mg Q30M PRN IV SBP>160 OR___/DBP>90 OR___ 08/22/19 07:00 08/22/19 15:00 Hydralazine HCl (Apresoline) 10 mg Q6H PRN IV SBP> 160 08/08/19 21:45 11/06/19 21:44 Lisinopril (PriniviL) 20 mg Q12HR GT 08/08/19 21:00 09/07/19 20:59 08/21/19 20:33 Metoprolol Tartrate (Lopressor) 25 mg Q12HR GT 08/09/19 09:00 11/07/19 08:59 08/21/19 20:32 Midazolam HCl (Versed 2mg/2ml vial) 1 mg Q15M PRN IVP For Anxiety 08/22/19 07:00 08/22/19 15:00 Multivitamins (Multivitamins) 1 tab DAILY GT 08/09/19 09:00 09/08/19 08:59 08/21/19 08:59 Ondansetron HCl (Zofran) 4 mg Q1H PRN IVP Nausea & Vomiting 08/22/19 07:00 08/22/19 15:00 Pantoprazole (Protonix) 40 mg EVERY 12 HOURS IVP 08/09/19 23:00 09/08/19 22:59 08/21/19 20:32 Piperacillin Sod/ Tazobactam Sod 3.375 gm/Sodium Chloride 110 ml @ 27.5 mls/hr ONCE IVPB 08/22/19 06:45 08/22/19 12:00 08/22/19 07:20 Sodium Chloride 1,000 ml @ 0 mls/hr Q0M IV 08/22/19 09:15 08/22/19 10:30 Sodium Chloride 1,000 ml @ 999 mls/hr Q1H1M ONCE IV 08/22/19 09:45 08/22/19 10:45 Jude Ochoa MD Aug 22, 2019 10:27"
--- NOTE | 2019-08-22 10:46 | NUR ---
*-* INSURANCE *-* UPDATED CLINICALS AND REVIEWS HAVE BEEN FAXED TO: [employer] REF# [id number] NC:NICHOLAS [phone] P: [phone] F: [phone] AFTER HOURS # [phone] Addendum: 08/22/19 at 1051 by MICHAEL FORBES CM ALL CLINICALS FROM 08/18- FAXED
--- NOTE | 2019-08-22 11:00 | Operative Note - Dictated ---
DATE OF OPERATION: 08/22/2019 GASTROENTEROLOGY PROCEDURE REPORT PROCEDURE: Upper gastrointestinal endoscopy with gastrostomy tube placement. SURGEON: Rubia Hawk MD ANESTHESIA: Please see the separate anesthesiologist notes for details. PRE-ENDOSCOPIC DIAGNOSIS: Dysphagia. POST-ENDOSCOPIC DIAGNOSIS: Status post gastrostomy tube placement. DESCRIPTION OF PROCEDURE: The procedure, its risks, indications, alternatives, and possible complications including but not limited to bleeding, infection, perforation, , and anesthesia complications were explained to the patient's daughter and informed consent was obtained. The patient was then sedated in the left lateral decubitus position and a diagnostic upper endoscope was introduced through oropharynx and advanced to the duodenum without difficulty. The endoscope was then gradually withdrawn and mucosa examined carefully. Examination of the upper gastrointestinal mucosa revealed the erosive and ulcerative gastritis, which was seen previously, but it had dramatically improved. There was no active bleeding. The location for placement of the gastrostomy tube was identified by palpation and transillumination techniques. Care was taken to place the gastrostomy tube in an endoscopically safe position as far away from prior wound as possible. The placement was verified by endoscopic as well as transillumination techniques. The outside skin was sterilely prepared, anesthetized, incised, and the trocar needle was used to place the gastrostomy tube using the standard pull technique. Position was verified endoscopically. The endoscope was removed and the patient was sent to Recovery in good condition. COMPLICATIONS: None. RECOMMENDATIONS: 1. Observe overnight. 2. Begin tube feedings tomorrow. 3. Gastrostomy tube care. Rubia Hawk M.D. DR: LAITH JOB#: [id number] CC:
[2019-08-22 12:00] VITALS: BP 111/75
--- NOTE | 2019-08-22 13:23 | NUR ---
NURSE NOTES: Called Dr. Fisher regarding 5 beats VTach episode at 12:22pm with no new order.
--- NOTE | 2019-08-22 13:35 | Pulmonology Progress Note ---
Subjective ROS Limited/Unobtainable: Yes Constitutional: Denies: fever Allergies: Coded Allergies: No Known Allergies (Unverified , 08/07/19) Subjective remains ill had GT hypotension noted improved with NS bolus vitals noted Objective Last 24 Hour Vital Signs Date Time Temp Pulse Resp B/P (MAP) Pulse Ox O2 Delivery O2 Flow Rate FiO2 08/22/19 10:45 73 16 35 08/22/19 09:00 101 83/56 08/22/19 09:00 101 83/56 08/22/19 09:00 83/56 08/22/19 08:04 85 16 100 08/22/19 08:03 84 18 100 08/22/19 08:00 35 08/22/19 08:00 Mechanical Ventilator 08/22/19 08:00 98.6 116 20 122/84 (97) 97 08/22/19 07:22 80 08/22/19 06:48 74 16 35 08/22/19 04:00 Mechanical Ventilator 08/22/19 04:00 98.6 89 27 150/84 (106) 99 08/22/19 04:00 35 08/22/19 03:05 72 16 35 08/22/19 03:01 68 08/22/19 00:00 77 08/22/19 00:00 98.8 74 18 115/60 (78) 100 08/22/19 00:00 Mechanical Ventilator 08/22/19 00:00 35 08/21/19 23:03 79 34 35 08/21/19 20:33 127/76 08/21/19 20:32 72 127/76 08/21/19 20:00 Mechanical Ventilator 08/21/19 20:00 89 08/21/19 20:00 98.2 72 22 127/76 (93) 100 08/21/19 18:48 77 23 35 08/21/19 16:00 99.2 78 18 148/76 (100) 100 08/21/19 16:00 35 08/21/19 16:00 Mechanical Ventilator 08/21/19 15:59 75 08/21/19 14:55 95 20 35 Intake and Output 08/21/19 08/22/19 19:00 07:00 Intake Total 610 ml 300 ml Output Total 350 ml 200 ml Balance 260 ml 100 ml Free Water 50 ml Tube Feeding 540 ml 300 ml Other 20 ml Output Urine Total 350 ml 200 ml # Voids 1 # Bowel Movements 2 Objective WDWN trach reduced breath sounds bilaterally without rhonchi or wheeze [id number] without MRG NABS nontender no CCE reduced LOC Laboratory Tests 08/22/19 08:05: Vitamin B12 Level 631 Current Medications Medications (Trade) Dose Ordered Sig/Nury Route PRN Reason Start Time Stop Time Status Last Admin Dose Admin Acetaminophen (Tylenol) 325 mg Q6H PRN RECTAL Temp >100.5 08/08/19 21:45 09/07/19 21:44 Acetaminophen (Tylenol) 650 mg Q4H PRN GT Temp >100.5 08/08/19 10:45 09/07/19 10:44 08/20/19 20:59 Acetaminophen (Tylenol) 650 mg Q4H PRN GT Mild Pain (Pain Scale 1-3) 08/08/19 10:45 09/07/19 10:44 Acetaminophen (Tylenol) 650 mg Q4H PRN ORAL Mild Pain (Pain Scale 1-3) 08/22/19 07:00 08/22/19 15:00 Al Hydroxide/Mg Hydroxide (Mylanta) 15 ml Q1H PRN ORAL gi upset 08/22/19 07:00 08/22/19 15:00 Amantadine HCl (Symmetrel) 100 mg DAILY GT 08/09/19 09:00 09/08/19 08:59 08/21/19 09:00 Amlodipine Besylate (Norvasc) 5 mg DAILY GT 08/10/19 09:00 09/09/19 08:59 08/21/19 08:59 Ascorbic Acid (Vitamin C) 250 mg DAILY GT 08/09/19 09:00 09/08/19 08:59 08/21/19 09:00 Atropine Sulfate (Atropine) 0.5 mg Q5M PRN IV bpm less than 45 08/22/19 07:00 08/22/19 15:00 Dextrose/Sodium Chloride 1,000 ml @ 75 mls/hr [id number] IV 08/22/19 08:15 09/21/19 08:14 08/22/19 09:18 Diphenhydramine HCl (Benadryl) 25 mg Q15M PRN IVP Itching 08/22/19 07:00 08/22/19 15:00 Doxazosin Mesylate (Cardura) 2 mg QHS GT 08/08/19 21:00 09/07/19 20:59 08/21/19 20:32 Fentanyl Citrate (Sublimaze 100 mcg/2 mL) 25 mcg Q10M PRN IV Moderate Pain (Pain Scale 4-6) 08/22/19 07:00 08/22/19 15:00 Folic Acid (Folate) 1 mg DAILY GT 08/08/19 14:30 09/07/19 14:29 08/21/19 09:00 Heparin Sodium (Porcine) (Heparin 5000 units/ml) 5,000 units EVERY 12 HOURS SUBQ 08/08/19 21:00 09/22/19 20:59 08/21/19 20:35 Hydralazine HCl (Apresoline) 5 mg Q30M PRN IV SBP>160 OR___/DBP>90 OR___ 08/22/19 07:00 08/22/19 15:00 Hydralazine HCl (Apresoline) 10 mg Q6H PRN IV SBP> 160 08/08/19 21:45 11/06/19 21:44 Lisinopril (PriniviL) 20 mg Q12HR GT 08/08/19 21:00 09/07/19 20:59 08/21/19 20:33 Metoprolol Tartrate (Lopressor) 25 mg Q12HR GT 08/09/19 09:00 11/07/19 08:59 08/21/19 20:32 Midazolam HCl (Versed 2mg/2ml vial) 1 mg Q15M PRN IVP For Anxiety 08/22/19 07:00 08/22/19 15:00 Multivitamins (Multivitamins) 1 tab DAILY GT 08/09/19 09:00 09/08/19 08:59 08/21/19 08:59 Ondansetron HCl (Zofran) 4 mg Q1H PRN IVP Nausea & Vomiting 08/22/19 07:00 08/22/19 15:00 Pantoprazole (Protonix) 40 mg EVERY 12 HOURS IVP 08/09/19 23:00 09/08/19 22:59 08/21/19 20:32 Assessment/Plan Assessment/Plan anemia possible GIB sinus tachycardia respiratory failure trach chronic encephalopathy GT site infection low K fevers better severe protein calorie malnutrition hypotension PLAN dc planning on hold bolus fluids vent support feeds per gi - GT placement and monitor wound care to stoma monitor HH replace K monitor albumin levels ID follow up dc planning once vitals better controlled impression, plan, and exam edited and reviewed in detail care discussed with Isaiah Villatoro MD Aug 22, 2019 13:35
--- NOTE | 2019-08-22 14:25 | NUR ---
CASE MANAGEMENT: REVIEW SI: ANEMIA . A-FIB . EGD w/PEG PLACEMENT TODAY 08/21 T 98.6 HR 116 RR 20 BP 83/56 SAT 97% MECH VENT FIO2 PEG FOR MEDS ONLY IS: ZOSYN IV X1 NS IVF BOLUS X1 PROTONIX IV Q12HR HEPARIN SUBQ Q12HR LOPRESSOR GT Q12HR NGT FEEDING STEP DOWN UNIT STATUS DCP: PATIENT IS FROM [facility]
[2019-08-22] MEDS: Acetaminophen 650mg/20.3ml GT PRN ×2 (15:04→20:19)
[2019-08-22 16:00] VITALS: BP 96/61
--- NOTE | 2019-08-22 18:13 | Surgery Progress Note ---
Surgery Progress Note Subjective Additional Comments PEG today Doing well since Start tube feeds as per GI Discharge planning Objective Last 24 Hour Vital Signs Date Time Temp Pulse Resp B/P (MAP) Pulse Ox O2 Delivery O2 Flow Rate FiO2 08/22/19 16:00 35 08/22/19 16:00 123 08/22/19 16:00 98.0 121 20 96/61 (73) 98 08/22/19 16:00 Mechanical Ventilator 08/22/19 14:47 76 16 35 08/22/19 12:00 96.4 120 23 111/75 (87) 100 08/22/19 12:00 35 08/22/19 12:00 Mechanical Ventilator 08/22/19 11:15 121 08/22/19 10:45 73 16 35 08/22/19 09:00 101 83/56 08/22/19 09:00 101 83/56 08/22/19 09:00 83/56 08/22/19 08:04 85 16 100 08/22/19 08:03 84 18 100 08/22/19 08:00 35 08/22/19 08:00 Mechanical Ventilator 08/22/19 08:00 98.6 116 20 122/84 (97) 97 08/22/19 07:22 80 08/22/19 06:48 74 16 35 08/22/19 04:00 Mechanical Ventilator 08/22/19 04:00 98.6 89 27 150/84 (106) 99 08/22/19 04:00 35 08/22/19 03:05 72 16 35 08/22/19 03:01 68 08/22/19 00:00 77 08/22/19 00:00 98.8 74 18 115/60 (78) 100 08/22/19 00:00 Mechanical Ventilator 08/22/19 00:00 35 08/21/19 23:03 79 34 35 08/21/19 20:33 127/76 08/21/19 20:32 72 127/76 08/21/19 20:00 Mechanical Ventilator 08/21/19 20:00 89 08/21/19 20:00 98.2 72 22 127/76 (93) 100 08/21/19 18:48 77 23 35 I&O Intake and Output 08/21/19 08/22/19 19:00 07:00 Intake Total 610 ml 300 ml Output Total 350 ml 200 ml Balance 260 ml 100 ml Free Water 50 ml Tube Feeding 540 ml 300 ml Other 20 ml Output Urine Total 350 ml 200 ml # Voids 1 # Bowel Movements 2 Dressing: other Wound: other Drains: other Cardiovascular: RSR Respiratory: decreased breath sounds Abdomen: soft, non-tender, present bowel sounds, other, non-distended Extremities: edema, no tenderness, no cyanosis Laboratory Tests Test 08/22/19 08:05 Vitamin B12 Level 631 PG/ML (193-986) Plan Problems: (1) Anemia (2) Unstageable decubitus ulcer Assessment & Plan: Pt presented on admission with multiple Pressure Injuries. Pt has a Tracheostomy and no areas of skin concerns noted under tracheal collar. Unstageable Sacral Pressure Injury(L)9.5cm x (W)10cm. Base of wound is 75% mixed slough and eschar,25% carolynn, Edges adherent with surrounding purple and maroon indurated borders. No odor or exudate noted. DTPI L Heel (L)3.7cm x (W)4.5cm. Base of wound is maroon and indurated with surrounding non-Blanching erythema. Callused skin periwound. Reabsorbing DTPI [place] L Foot (L)3.3cm x (W)2.5cm. Base of Pressure Injury is maroon but dry. No erythema or fluctuance periwound. DTPI Lateral L 1st metatarsal(L)1.5cm x (W)2cm. Base of wound is maroon and indurated.Callused skin periwound. DTPI Lateral R Heel (L)4.4cm x (W)6cm. Base of wound is indurated ,purple with surrounding maroon and fluctuant borders.Callusing periwound. DTPI R Hallux (L)1.8cm x (W)1.9cm. Base of wound is indurated and purple. Callusing periwound. DTPI Lateral R 1st metatarsal(L)2cm x (W)2.7cm. Base of wound is indurated and maroon. Callusing periwound. Tx.Plan: Cleanse Sacral wound with Saline. Apply TheraHoney. Apply Moisture Barrier Paste periwound. Cover with Optifoam drsg. Change every 3 days and prn. Apply Cavilon Skin Barrier to wounds L L Heel , L st metatarsal,Dorsal L Foot. Cover each Site with Optifoam drsg. Change every 7 days and prn. Apply Cavilon Skin Barrier to R Heel, R Hallux, R 1st metatarsal. Cover each site with Optifoam drsg. Change every 7 days and prn. APM/KHOA Mattress. Reposition at least every 2hours or as tolerated. Off-Load Heels with Pillows. (3) Leaking PEG tube Assessment & Plan: prior peg removed plan new placement soon will monitor site drainage noted packing placed Minimal drainage from prior G-tube site discussed with nursing about packing and dressings will continue current care plan plan for PEG tube once improved s/p peg 08/21 tf d/c plan Lung bases: Atelectasis at the lung bases. Liver: Unremarkable. No mass. Gallbladder and bile ducts: Unremarkable. No calcified stones. No ductal dilation. Pancreas: Unremarkable. No mass. No ductal dilation. Spleen: Unremarkable. No splenomegaly. Adrenals: Unremarkable. No mass. Kidneys and ureters: Nonobstructing stone in the lower pole of the right kidney. Stomach and bowel: Tract from a recent percutaneous gastrostomy tube which is healing in the subcutaneous fat. Surrounding inflammatory changes but no abscess. Severe colonic diverticulosis within the sigmoid colon with mural hypertrophy however no surrounding inflammatory changes to suggest acute diverticulitis. Underlying malignancy not excluded. No obstruction. Intraperitoneal space: Unremarkable. No free air. No significant fluid collection. Bones/joints: No acute fracture. No dislocation. Soft tissues: Fat stranding in the ventral abdomen. Vasculature: Unremarkable. No abdominal aortic aneurysm. Lymph nodes: Unremarkable. No enlarged lymph nodes. Tubes, lines and devices: Thakkar catheter within the bladder. IMPRESSION: 1. Severe colonic diverticulosis within the sigmoid colon with mural hypertrophy however no surrounding inflammatory changes to suggest acute diverticulitis. Underlying malignancy not excluded. 2. Tract from a recent percutaneous gastrostomy tube which is healing in the subcutaneous fat. Surrounding inflammatory changes but no abscess. (4) Person under investigation for COVID-19 Assessment & Plan: There is a tracheostomy. Calcified granuloma is seen in the right midlung. Granulomatous calcified nodes are seen in the left aortopulmonary window. No definite infiltrates, effusions, congestion. The heart size is upper limits normal. Impression: No definite acute abnormality Evidence of old granulomatous disease Homero Cummings Aug 22, 2019 18:13
--- NOTE | 2019-08-22 19:31 | NUR ---
HAND-OFF: Report given to Linsey BUSBY. Pt. remain stable.
--- NOTE | 2019-08-22 19:46 | NUR ---
NURSE NOTES: Report received from KEHINDE Hawkins. Observed pt lying in the bed, open eyes, non-verbal at this time. ST noted, HR of 113 noted. Trach to vent, Portex 8, AC 14/450/35%/5, no sob noted. NPO at this time. Abd binding noted, s/p PEG. F/C intact, draining well. IV on R H 20G, intact running D5 at 75cc/hr. Bed in the lowest position. Side rails up x3. Will continue to monitor.
[2019-08-22 20:00] VITALS: BP 106/64
[2019-08-22] MEDS: Doxazosin 4mg tab GT SCH (20:19)
--- NOTE | 2019-08-22 20:30 | NUR ---
NURSE NOTES: HR of 140 noted. BP meds held for BP of 100/63. PRN pain med given, reposition done, HR of 120 noted. Will continue to monitor.
[2019-08-23] VITALS (13 sets, daily range): BP systolic 98–142; BP diastolic 53–71
--- NOTE | 2019-08-23 00:05 | NUR ---
NURSE NOTES: No acute distress noted at this time. Pt sleeping in the bed. ST w/ HR of 110 noted. Reposition done. Oral care given. Will continue to monitor.
--- NOTE | 2019-08-23 03:16 | NUR ---
NURSE NOTES: Noted pt had 6 beats of Vtach, asymptomatic, is aware of previous episode, will notify in the morning. Bp of 110/70, HR 120 noted, Will continue to monitor.
--- NOTE | 2019-08-23 07:09 | NUR ---
NURSE NOTES: Received report from KEHINDE Rodriguez. Pt in bed open his eyes, resting in bed, holding the line of pulse oximeter. IV site in right hand 20G SL patent and intact. No c/o pain on facial pain scale. Trach Portex 8, with vent setting AC 14, 450, 35% peep of 5. Bed locked and in lowest it's position. Call light within easy reach. Side railsx3 up for safety. On 200 mattress. F/C patent and intact. HOB elevated with 30 degree. New G-Tube site patent and covered with abdomen binder, no signs of bleeding noted from G-tube site. Will continue plan of care.
--- NOTE | 2019-08-23 07:09 | NUR ---
HAND-OFF: Report given to KEHINDE Hartley.
[2019-08-23] MEDS ORDERED: Potassium Chloride 20 MEQ in D5 1/2NS 1,000 ML IV SCH (08:15)
[2019-08-23] MEDS: Ascorbic Acid 500mg tab GT SCH (08:46)
[2019-08-23] MEDS: Amantadine 100mg cap GT SCH (08:46)
[2019-08-23] MEDS: Pantoprazole Inj IVP SCH ×2 (08:46→20:46)
[2019-08-23] MEDS: Lisinopril 20mg tab GT SCH ×2 (08:47→20:42)
[2019-08-23] MEDS: Heparin 5000 units/ml inj SUBQ SCH ×2 (08:48→20:42)
--- NOTE | 2019-08-23 09:08 | Pulmonology Progress Note ---
Subjective ROS Limited/Unobtainable: Yes Constitutional: Denies: fever Allergies: Coded Allergies: No Known Allergies (Unverified , 08/07/19) Subjective remains ill had GT hypotension noted now with sinus tachy vitals noted Objective Last 24 Hour Vital Signs Date Time Temp Pulse Resp B/P (MAP) Pulse Ox O2 Delivery O2 Flow Rate FiO2 08/23/19 08:47 113 100/59 08/23/19 08:47 113 100/59 08/23/19 08:47 100/59 08/23/19 08:00 98.4 113 30 100/59 (73) 96 08/23/19 04:00 107 08/23/19 04:00 98.8 101 30 126/71 (89) 99 08/23/19 04:00 35 08/23/19 04:00 Mechanical Ventilator 08/23/19 02:37 114 33 35 08/23/19 00:00 Mechanical Ventilator 08/23/19 00:00 35 08/23/19 00:00 104 08/23/19 00:00 99.3 139 25 118/63 (81) 100 08/22/19 23:04 95 27 35 08/22/19 20:20 100/63 08/22/19 20:19 130 100/63 08/22/19 20:00 Mechanical Ventilator 08/22/19 20:00 98.1 110 28 106/64 (78) 100 08/22/19 20:00 115 08/22/19 20:00 35 08/22/19 18:51 119 28 35 08/22/19 16:00 35 08/22/19 16:00 123 08/22/19 16:00 98.0 121 20 96/61 (73) 98 08/22/19 16:00 Mechanical Ventilator 08/22/19 14:47 76 16 35 08/22/19 12:00 96.4 120 23 111/75 (87) 100 08/22/19 12:00 35 08/22/19 12:00 Mechanical Ventilator 08/22/19 11:15 121 08/22/19 10:45 73 16 35 Intake and Output 08/22/19 08/23/19 19:00 07:00 Intake Total 750 ml 600 ml Output Total 200 ml 200 ml Balance 550 ml 400 ml IV Total 750 ml 600 ml Output Urine Total 200 ml 200 ml # Bowel Movements 1 1 Objective WDWN trach reduced breath sounds bilaterally without rhonchi or wheeze [id number] tachy without MRG NABS nontender no CCE reduced LOC Laboratory Tests 08/23/19 03:10: Folate 34.0 Current Medications Medications (Trade) Dose Ordered Sig/Nury Route PRN Reason Start Time Stop Time Status Last Admin Dose Admin Acetaminophen (Tylenol) 325 mg Q6H PRN RECTAL Temp >100.5 08/08/19 21:45 09/07/19 21:44 Acetaminophen (Tylenol) 650 mg Q4H PRN GT Mild Pain (Pain Scale 1-3) 08/08/19 10:45 09/07/19 10:44 08/22/19 15:04 Acetaminophen (Tylenol) 650 mg Q4H PRN GT Temp >100.5 08/08/19 10:45 09/07/19 10:44 08/22/19 20:19 Amantadine HCl (Symmetrel) 100 mg DAILY GT 08/09/19 09:00 09/08/19 08:59 08/23/19 08:46 Amlodipine Besylate (Norvasc) 5 mg DAILY GT 08/10/19 09:00 09/09/19 08:59 08/21/19 08:59 Ascorbic Acid (Vitamin C) 250 mg DAILY GT 08/09/19 09:00 09/08/19 08:59 08/23/19 08:46 Doxazosin Mesylate (Cardura) 2 mg QHS GT 08/08/19 21:00 09/07/19 20:59 08/21/19 20:32 Folic Acid (Folate) 1 mg DAILY GT 08/08/19 14:30 09/07/19 14:29 08/23/19 08:46 Heparin Sodium (Porcine) (Heparin 5000 units/ml) 5,000 units EVERY 12 HOURS SUBQ 08/08/19 21:00 09/22/19 20:59 08/23/19 08:48 Hydralazine HCl (Apresoline) 10 mg Q6H PRN IV SBP> 160 08/08/19 21:45 11/06/19 21:44 Lisinopril (PriniviL) 20 mg Q12HR GT 08/08/19 21:00 09/07/19 20:59 08/21/19 20:33 Metoprolol Tartrate (Lopressor) 25 mg Q12HR GT 08/09/19 09:00 11/07/19 08:59 08/21/19 20:32 Multivitamins (Multivitamins) 1 tab DAILY GT 08/09/19 09:00 09/08/19 08:59 08/23/19 08:46 Pantoprazole (Protonix) 40 mg EVERY 12 HOURS IVP 08/09/19 23:00 09/08/19 22:59 08/23/19 08:46 Potassium Chloride 20 meq/ Dextrose/Sodium Chloride 1,010 ml @ 75 mls/hr [id number] IV 08/23/19 08:15 09/22/19 08:14 08/23/19 07:56 Assessment/Plan Assessment/Plan anemia possible GIB sinus tachycardia respiratory failure trach chronic encephalopathy GT site infection low K fevers better severe protein calorie malnutrition hypotension PLAN dc planning on hold pending improved heart rate bolus fluids if needed vent support feeds per gi - GT placement and monitor wound care monitor HH replace K monitor albumin levels/ protein supplementation ID follow up dc planning once vitals better controlled impression, plan, and exam edited and reviewed in detail care discussed with Isaiah Villatoro MD Aug 23, 2019 09:08
--- NOTE | 2019-08-23 10:00 | Progress Note ---
DATE: 08/22/2019 CARDIOLOGY PROGRESS NOTE SUBJECTIVE: The patient had low range blood pressure earlier today. The patient was given fluid boluses with some improvement. Monitored rhythm remains sinus. He is afebrile. He is on full ventilator support. PHYSICAL EXAMINATION: LUNGS: Bilateral breath sounds, rhonchi. No wheezing. CARDIAC: Regular rhythm and rate. Normal S1, S2. ABDOMEN: Soft. EXTREMITIES: Trace edema. LABORATORY DATA: Potassium 3.5, magnesium 2.0, BUN 15, creatinine 1. Pro-natriuretic peptide 541. White count 7.6, hemoglobin 9.4. IMPRESSION: 1. Hypovolemia and hypotension. 2. Paroxysmal atrial arrhythmias. 3. Transient bradycardia. 4. Acute on chronic diastolic congestive heart failure. 5. Status post G-tube replacement. PLAN: 1. Volume support. 2. Antimicrobials. 3. Nutrition by feeding tube. 4. Monitor and replace electrolytes as needed. 5. Continue cardiac monitoring. 6. No diuresis at this time. Augustine Fisher M.D. DR: BLAKE JOB#: [id number] CC:
--- NOTE | 2019-08-23 10:29 | Infectious Diseases Prog Note ---
"Assessment/Plan Assessment/Plan antibiotics : none A 1. pseudomonas | providencia pneumonia s/p rx COVID negative x 2 2. klebsiella | pseudomonas | VRE Gt site cellulitis 3. respiratory failure 4. leucocytosis resolved 5. s/p GT placement P 1. continue off antibiotics 2. will follow up cultures Subjective ROS Limited/Unobtainable: Yes Allergies: Coded Allergies: No Known Allergies (Unverified , 08/07/19) Objective Vital Signs Last 24 Hour Vital Signs Date Time Temp Pulse Resp B/P (MAP) Pulse Ox O2 Delivery O2 Flow Rate FiO2 08/23/19 09:34 124 142/63 08/23/19 09:34 124 142/63 08/23/19 09:33 124 142/63 (89) 08/23/19 08:47 100/59 08/23/19 08:00 98.4 113 30 100/59 (73) 96 08/23/19 08:00 35 08/23/19 08:00 104 08/23/19 08:00 Mechanical Ventilator 08/23/19 04:00 107 08/23/19 04:00 98.8 101 30 126/71 (89) 99 08/23/19 04:00 35 08/23/19 04:00 Mechanical Ventilator 08/23/19 02:37 114 33 35 08/23/19 00:00 Mechanical Ventilator 08/23/19 00:00 35 08/23/19 00:00 104 08/23/19 00:00 99.3 139 25 118/63 (81) 100 08/22/19 23:04 95 27 35 08/22/19 20:20 100/63 08/22/19 20:19 130 100/63 08/22/19 20:00 Mechanical Ventilator 08/22/19 20:00 98.1 110 28 106/64 (78) 100 08/22/19 20:00 115 08/22/19 20:00 35 08/22/19 18:51 119 28 35 08/22/19 16:00 35 08/22/19 16:00 123 08/22/19 16:00 98.0 121 20 96/61 (73) 98 08/22/19 16:00 Mechanical Ventilator 08/22/19 14:47 76 16 35 08/22/19 12:00 96.4 120 23 111/75 (87) 100 08/22/19 12:00 35 08/22/19 12:00 Mechanical Ventilator 08/22/19 11:15 121 08/22/19 10:45 73 16 35 Height (Feet): 5 Height (Inches): 10.00 Weight (Pounds): 214 HEENT: status post trach Respiratory/Chest: lungs clear Cardiovascular: normal rate, regular rhythm, no gallop/murmur Abdomen: soft, non tender, other - GT Extremities: no edema Laboratory Tests Test 08/23/19 03:10 Folate 34.0 NG/ML (8.6-58.9) Current Medications Medications (Trade) Dose Ordered Sig/Nury Route PRN Reason Start Time Stop Time Status Last Admin Dose Admin Acetaminophen (Tylenol) 325 mg Q6H PRN RECTAL Temp >100.5 08/08/19 21:45 09/07/19 21:44 Acetaminophen (Tylenol) 650 mg Q4H PRN GT Mild Pain (Pain Scale 1-3) 08/08/19 10:45 09/07/19 10:44 08/22/19 15:04 Acetaminophen (Tylenol) 650 mg Q4H PRN GT Temp >100.5 08/08/19 10:45 09/07/19 10:44 08/22/19 20:19 Amantadine HCl (Symmetrel) 100 mg DAILY GT 08/09/19 09:00 09/08/19 08:59 08/23/19 08:46 Amlodipine Besylate (Norvasc) 5 mg DAILY GT 08/10/19 09:00 09/09/19 08:59 08/23/19 09:34 Ascorbic Acid (Vitamin C) 250 mg DAILY GT 08/09/19 09:00 09/08/19 08:59 08/23/19 08:46 Doxazosin Mesylate (Cardura) 2 mg QHS GT 08/08/19 21:00 09/07/19 20:59 08/21/19 20:32 Folic Acid (Folate) 1 mg DAILY GT 08/08/19 14:30 09/07/19 14:29 08/23/19 08:46 Heparin Sodium (Porcine) (Heparin 5000 units/ml) 5,000 units EVERY 12 HOURS SUBQ 08/08/19 21:00 09/22/19 20:59 08/23/19 08:48 Hydralazine HCl (Apresoline) 10 mg Q6H PRN IV SBP> 160 08/08/19 21:45 11/06/19 21:44 Lisinopril (PriniviL) 20 mg Q12HR GT 08/08/19 21:00 09/07/19 20:59 08/21/19 20:33 Metoprolol Tartrate (Lopressor) 25 mg Q12HR GT 08/09/19 09:00 11/07/19 08:59 08/23/19 09:34 Multivitamins (Multivitamins) 1 tab DAILY GT 08/09/19 09:00 09/08/19 08:59 08/23/19 08:46 Pantoprazole (Protonix) 40 mg EVERY 12 HOURS IVP 08/09/19 23:00 09/08/19 22:59 08/23/19 08:46 Potassium Chloride 20 meq/ Dextrose/Sodium Chloride 1,010 ml @ 75 mls/hr [id number] IV 08/23/19 08:15 09/22/19 08:14 08/23/19 07:56 Jude Ochoa MD Aug 23, 2019 10:29"
--- NOTE | 2019-08-23 13:14 | NUR ---
NURSE NOTES: Noted tachycardia 170 on the security monitor. PN went to the patient to check the pt and noted Patient was restlessness. Noted acute brisk pulsatile active bleeding from the G-tube site. Significant for blood identified on the dressings and in the patient's bed therefore immediate hemostasis indicated and recommended. Dr. Cummings stopped by the patient's room for rounds. Dr. Cummings ordered IV NS 1L bolus and STAT CBC and Type and cross for transfusion ordered and carried out. MANAGER STAR initiated. At the bedside patient was given pain medication morphine IV 4mg ordered from Dr. Cummings and the G-tube site incision was extended and postop bleeding identified from around the level of the deep subcutaneous tissue. Sutures done by Dr. Cummings and new abdomen binder applied per ordered. Dr. Hawk paged and notified about the abrupt bleeding on G-tube site. Patient tolerated well with the procedure.
--- NOTE | 2019-08-23 14:00 | NUR ---
NURSE NOTES: Dr. Hawk called back and ordered STAT CBC,BMP 30mins after 2units of PRBC transfusion. NPO ordered until further order.
[2019-08-23] MEDS ORDERED: Morphine Sulfate 2mg/ml Inj(IV/IM USE ONLY) IVP SCH ×2 (14:23→14:28)
--- NOTE | 2019-08-23 14:43 | NUR ---
NURSE NOTES: Noted sweating. Finger tip blood glucose checked 158mg/dl
--- NOTE | 2019-08-23 14:54 | NUR ---
CASE MANAGEMENT: REVIEW SI: A-FIB . TACHYCARDIA . ACTIVE BLEEDING FROM THE G-TUBE SITE EGD w/PEG PLACEMENT TODAY 08/21 T 99.3 HR 139 RR 33 BP 100/59 SAT 95% MECH VENT FIO2 35 STAT LABS PENDING IS: PROTONIX IV Q12HR HEPARIN SUBQ Q12HR LOPRESSOR GT Q12HR GT FEEDING GT SITE WOUND CARE PACKING AND DRESSINGS STEP DOWN UNIT STATUS DCP: PATIENT IS FROM [facility]
--- NOTE | 2019-08-23 14:56 | Surgery Progress Note ---
Surgery Progress Note Subjective Additional Comments Patient was fine after PEG yesterday seen in the evening no bleeding noted PEG site stable. This morning was okay dressings were changed no issues. This afternoon began to have acute brisk pulsatile active bleeding from the G-tube site. Significant for blood identified on the dressings and in the patient's bed therefore immediate hemostasis indicated and recommended. At the bedside patient was given pain medication morphine IV and the G-tube site incision was extended and postop bleeding identified from around the level of the deep subcutaneous tissue. 2 [id number] 0 silk sutures were placed and hemostasis was obtained. The skin incision was reapproximated using 0 silk interrupted sutures. Patient taught procedure well. Hemostasis noted. Labs ordered will monitor Objective Last 24 Hour Vital Signs Date Time Temp Pulse Resp B/P (MAP) Pulse Ox O2 Delivery O2 Flow Rate FiO2 08/23/19 12:00 Mechanical Ventilator 08/23/19 12:00 35 08/23/19 12:00 117 08/23/19 12:00 99.4 106 22 111/71 (84) 95 08/23/19 12:00 Mechanical Ventilator 08/23/19 09:34 124 142/63 08/23/19 09:34 124 142/63 08/23/19 09:33 124 142/63 (89) 08/23/19 08:47 100/59 08/23/19 08:00 98.4 113 30 100/59 (73) 96 08/23/19 08:00 35 08/23/19 08:00 104 08/23/19 08:00 Mechanical Ventilator 08/23/19 04:00 107 08/23/19 04:00 98.8 101 30 126/71 (89) 99 08/23/19 04:00 35 08/23/19 04:00 Mechanical Ventilator 08/23/19 02:37 114 33 35 08/23/19 00:00 Mechanical Ventilator 08/23/19 00:00 35 08/23/19 00:00 104 08/23/19 00:00 99.3 139 25 118/63 (81) 100 08/22/19 23:04 95 27 35 08/22/19 20:20 100/63 08/22/19 20:19 130 100/63 08/22/19 20:00 Mechanical Ventilator 08/22/19 20:00 98.1 110 28 106/64 (78) 100 08/22/19 20:00 115 08/22/19 20:00 35 08/22/19 18:51 119 28 35 08/22/19 16:00 35 08/22/19 16:00 123 08/22/19 16:00 98.0 121 20 96/61 (73) 98 08/22/19 16:00 Mechanical Ventilator I&O Intake and Output 08/22/19 08/23/19 19:00 07:00 Intake Total 750 ml 600 ml Output Total 200 ml 200 ml Balance 550 ml 400 ml IV Total 750 ml 600 ml Output Urine Total 200 ml 200 ml # Bowel Movements 1 1 Dressing: saturated Wound: other Drains: other Cardiovascular: RSR Respiratory: decreased breath sounds Abdomen: soft, non-tender, present bowel sounds Extremities: no cyanosis Laboratory Tests Test 08/23/19 03:10 08/23/19 14:40 Folate 34.0 NG/ML (8.6-58.9) White Blood Count Pending Red Blood Count Pending Hemoglobin Pending Hematocrit Pending Mean Corpuscular Volume Pending Mean Corpuscular Hemoglobin Pending Mean Corpuscular Hemoglobin Concent Pending Red Cell Distribution Width Pending Platelet Count Pending Mean Platelet Volume Pending Neutrophils (%) (Auto) Pending Lymphocytes (%) (Auto) Pending Monocytes (%) (Auto) Pending Eosinophils (%) (Auto) Pending Basophils (%) (Auto) Pending Plan Problems: (1) Anemia Assessment & Plan: 08/22 acute brisk pulsatile active bleeding from the G-tube site. Significant for blood identified on the dressings and in the patient's bed therefore immediate hemostasis indicated and recommended. At the bedside patient was given pain medication morphine IV and the G-tube site incision was extended and postop bleeding identified from around the level of the deep subcutaneous tissue. 2 [id number] 0 silk sutures were placed and hemostasis was obtained. The skin incision was reapproximated using 0 silk interrupted sutures. Patient taught procedure well. Hemostasis noted. Labs ordered will monitor (2) Unstageable decubitus ulcer Assessment & Plan: Pt presented on admission with multiple Pressure Injuries. Pt has a Tracheostomy and no areas of skin concerns noted under tracheal collar. Unstageable Sacral Pressure Injury(L)9.5cm x (W)10cm. Base of wound is 75% mixed slough and eschar,25% carolynn, Edges adherent with surrounding purple and maroon indurated borders. No odor or exudate noted. DTPI L Heel (L)3.7cm x (W)4.5cm. Base of wound is maroon and indurated with surrounding non-Blanching erythema. Callused skin periwound. Reabsorbing DTPI [place] L Foot (L)3.3cm x (W)2.5cm. Base of Pressure Injury is maroon but dry. No erythema or fluctuance periwound. DTPI Lateral L 1st metatarsal(L)1.5cm x (W)2cm. Base of wound is maroon and indurated.Callused skin periwound. DTPI Lateral R Heel (L)4.4cm x (W)6cm. Base of wound is indurated ,purple with surrounding maroon and fluctuant borders.Callusing periwound. DTPI R Hallux (L)1.8cm x (W)1.9cm. Base of wound is indurated and purple. Callusing periwound. DTPI Lateral R 1st metatarsal(L)2cm x (W)2.7cm. Base of wound is indurated and maroon. Callusing periwound. Tx.Plan: Cleanse Sacral wound with Saline. Apply TheraHoney. Apply Moisture Barrier Paste periwound. Cover with Optifoam drsg. Change every 3 days and prn. Apply Cavilon Skin Barrier to wounds L L Heel , L st metatarsal,Dorsal L Foot. Cover each Site with Optifoam drsg. Change every 7 days and prn. Apply Cavilon Skin Barrier to R Heel, R Hallux, R 1st metatarsal. Cover each site with Optifoam drsg. Change every 7 days and prn. APM/KHOA Mattress. Reposition at least every 2hours or as tolerated. Off-Load Heels with Pillows. (3) Leaking PEG tube Assessment & Plan: prior peg removed plan new placement soon will monitor site drainage noted packing placed Minimal drainage from prior G-tube site discussed with nursing about packing and dressings will continue current care plan plan for PEG tube once improved s/p peg 08/21 tf d/c plan Lung bases: Atelectasis at the lung bases. Liver: Unremarkable. No mass. Gallbladder and bile ducts: Unremarkable. No calcified stones. No ductal dilation. Pancreas: Unremarkable. No mass. No ductal dilation. Spleen: Unremarkable. No splenomegaly. Adrenals: Unremarkable. No mass. Kidneys and ureters: Nonobstructing stone in the lower pole of the right kidney. Stomach and bowel: Tract from a recent percutaneous gastrostomy tube which is healing in the subcutaneous fat. Surrounding inflammatory changes but no abscess. Severe colonic diverticulosis within the sigmoid colon with mural hypertrophy however no surrounding inflammatory changes to suggest acute diverticulitis. Underlying malignancy not excluded. No obstruction. Intraperitoneal space: Unremarkable. No free air. No significant fluid collection. Bones/joints: No acute fracture. No dislocation. Soft tissues: Fat stranding in the ventral abdomen. Vasculature: Unremarkable. No abdominal aortic aneurysm. Lymph nodes: Unremarkable. No enlarged lymph nodes. Tubes, lines and devices: Thakkar catheter within the bladder. IMPRESSION: 1. Severe colonic diverticulosis within the sigmoid colon with mural hypertrophy however no surrounding inflammatory changes to suggest acute diverticulitis. Underlying malignancy not excluded. 2. Tract from a recent percutaneous gastrostomy tube which is healing in the subcutaneous fat. Surrounding inflammatory changes but no abscess. (4) Person under investigation for COVID-19 Assessment & Plan: There is a tracheostomy. Calcified granuloma is seen in the right midlung. Granulomatous calcified nodes are seen in the left aortopulmonary window. No definite infiltrates, effusions, congestion. The heart size is upper limits normal. Impression: No definite acute abnormality Evidence of old granulomatous disease Homero Cummings Aug 23, 2019 14:56
[2019-08-23 14:59] LABS: HEMOGLOBIN 6.1 G/DL (14.2-18.0); MEAN CORPUSCULAR VOLUME 107 FL (80-99); PLATELET COUNT 370 K/UL (150-450); RED BLOOD COUNT 1.78 M/UL (4.70-6.10); RED CELL DISTRIBUTION WIDTH 14.1 % (11.6-14.8)
[2019-08-23] MEDS: D5NS 1,000 ML IV SCH (16:00)
--- NOTE | 2019-08-23 16:14 | NUR ---
*-* INSURANCE *-* UPDATED CLINICALS AND REVIEWS HAVE BEEN FAXED TO: [facility]# [id number] COCOM:NICHOLAS [phone] P: [phone] F: [phone] AFTER HOURS # [phone]
[2019-08-23] MEDS ORDERED: D5 1/2NS 1000ml IV ONE (17:49)
[2019-08-23] MEDS ORDERED: NS 275ml ONE (17:49)
--- NOTE | 2019-08-23 17:55 | NUR ---
NURSE NOTES: 1 units of blood transfusion started. No adverse reaction noted.
--- NOTE | 2019-08-23 19:09 | NUR ---
HAND-OFF: Report given to KEHINDE Rodriguez.Pt remains stable. Endorsed plan of care.
--- NOTE | 2019-08-23 19:30 | NUR ---
NURSE NOTES: Report received from KEHINDE Hartley. Observed pt lying in the bed, awake, non-verbal, no signs of pain noted. ST noted, HR of 110. Trac to vent, Portex 8, AC 14/450/35%/5, no sob, sat at 99%. ABD binding intact, no bleeding on abd dressing noted. BP of 100/63 noted at this time. IV on R H 20G, Blood transfusion running noted. L AC 20G, running, D5 NS at 100cc/hr. R wrist intact, no distress noted. Bed in the lowest position. Side rails up x3. Will continue to monitor.
--- NOTE | 2019-08-23 20:20 | NUR ---
NURSE NOTES: Second PRBC started at this time. VS stable. ST noted. IV site, R H 20g, asymptomatic. Will continue to monitor.
[2019-08-23] MEDS: Doxazosin 4mg tab GT SCH (20:41)
--- NOTE | 2019-08-23 21:25 | General Progress Note ---
Assessment/Plan Assessment/Plan: Assessment - Arterial GT site bleeding - repaired - Anemia -acute and chronic - GT migration out of stomach - Mushroom cap in anterior abdominal wall (GT removed) - Abdominal wall induration and discharge --> definite improvement - anemia - OB (+) stools - due to ulcerative gastritis, no colonoscopy per DPOA - s/p Trach - Macrocytic indicies - normal B12 and folate Recommendations - PPI - transfuse - overnight NPO - off abx per ID - follow exam and labs - transfuse as needed - d/c PO Iron ----> IV Fe - laxative, PRN Subjective Allergies: Coded Allergies: No Known Allergies (Unverified , 08/07/19) Subjective Above noted surgical consult intervention appreciated patient seen this am GT site normal and TF orders given subseqently bleed profusely at GT site bleeding site isolated and sutured by surgery Objective Last 24 Hour Vital Signs Date Time Temp Pulse Resp B/P (MAP) Pulse Ox O2 Delivery O2 Flow Rate FiO2 08/23/19 20:42 100/57 08/23/19 20:41 120 100/57 08/23/19 20:00 Mechanical Ventilator 08/23/19 20:00 98.7 118 32 104/57 (73) 100 08/23/19 20:00 35 08/23/19 19:29 102 26 35 08/23/19 19:26 107 08/23/19 19:02 117 98/61 (73) 08/23/19 16:19 170 28 94 08/23/19 16:08 110 110/53 (72) 08/23/19 16:00 99.2 115 22 108/70 (83) 95 08/23/19 16:00 35 08/23/19 16:00 Mechanical Ventilator 08/23/19 15:30 110 98/56 (70) 08/23/19 15:01 107 32 35 08/23/19 13:20 130 30 108/70 (83) 95 08/23/19 13:10 170 30 142/70 (94) 95 08/23/19 12:00 Mechanical Ventilator 08/23/19 12:00 35 08/23/19 12:00 117 08/23/19 12:00 99.4 106 22 111/71 (84) 95 08/23/19 12:00 Mechanical Ventilator 08/23/19 10:45 120 36 35 08/23/19 09:34 124 142/63 08/23/19 09:34 124 142/63 08/23/19 09:33 124 142/63 (89) 08/23/19 08:47 100/59 08/23/19 08:00 98.4 113 30 100/59 (73) 96 08/23/19 08:00 35 08/23/19 08:00 104 08/23/19 08:00 Mechanical Ventilator 08/23/19 07:00 92 32 35 08/23/19 04:00 107 08/23/19 04:00 98.8 101 30 126/71 (89) 99 08/23/19 04:00 35 08/23/19 04:00 Mechanical Ventilator 08/23/19 02:37 114 33 35 08/23/19 00:00 Mechanical Ventilator 08/23/19 00:00 35 08/23/19 00:00 104 08/23/19 00:00 99.3 139 25 118/63 (81) 100 08/22/19 23:04 95 27 35 Intake and Output 08/22/19 08/23/19 19:00 07:00 Intake Total 750 ml 600 ml Output Total 200 ml 200 ml Balance 550 ml 400 ml IV Total 750 ml 600 ml Output Urine Total 200 ml 200 ml # Bowel Movements 1 1 Laboratory Tests 08/23/19 03:10: Folate 34.0 08/23/19 14:40: White Blood Count 15.0H, Red Blood Count 1.78L, Hemoglobin 6.1*L, Hematocrit 19.0L, Mean Corpuscular Volume 107H, Mean Corpuscular Hemoglobin 34.2H, Mean Corpuscular Hemoglobin Concent 32.1, Red Cell Distribution Width 14.1, Platelet Count 370, Mean Platelet Volume 7.6, Neutrophils (%) (Auto) , Lymphocytes (%) ( Auto) , Monocytes (%) (Auto) , Eosinophils (%) (Auto) , Basophils (%) (Auto) , Differential Total Cells Counted 100, Neutrophils % (Manual) 70, Lymphocytes % ( Manual) 22, Monocytes % (Manual) 8, Eosinophils % (Manual) 0, Basophils % ( Manual) 0, Band Neutrophils 0, Platelet Estimate Adequate, Platelet Morphology Normal, Hypochromasia 3+, Anisocytosis 2+, Microcytosis 2+, Macrocytosis Occasional Height (Feet): 5 Height (Inches): 10.00 Weight (Pounds): 214 Objective Obese AA Man NCAT (+) Trach coarse BS RR Abd obese, packed old GT site, induration smaller in size (+) GT at new site trace edema non interactive Rubia Hawk MD Aug 23, 2019 21:25
--- NOTE | 2019-08-23 22:40 | NUR ---
NURSE NOTES: Transfusion finished, timed cbc, bmp ordered per MD. No signs of distress noted at this time. Pt sleeping in the bed. No bleeding from GT dressing. Will continue to monitor.
[2019-08-23 23:55] LABS: BASOPHILS % (AUTO) 0.6 % (0.0-2.0); HEMATOCRIT 23.8 % (42.0-52.0); HEMOGLOBIN 8.1 G/DL (14.2-18.0); MEAN CORPUSCULAR VOLUME 98 FL (80-99); MONOCYTES % (AUTO) 9.1 % (1.0-10.0); NEUTROPHILS % (AUTO) 82.4 % (45.0-75.0); PLATELET COUNT 251 K/UL (150-450); RED BLOOD COUNT 2.43 M/UL (4.70-6.10); RED CELL DISTRIBUTION WIDTH 15.7 % (11.6-14.8); WHITE BLOOD COUNT 17.8 K/UL (4.8-10.8)
[2019-08-24] VITALS: BP 112/64
--- NOTE | 2019-08-24 | NUR ---
NURSE NOTES: Left a message to regarding CBC, BMP after transfusion. Awaiting for call back. No acute distress noted at this time. GT dressing intact, no bleeding noted.
[2019-08-24 00:01] LABS: ANION GAP 10 mmol/L (5-15); BLOOD UREA NITROGEN 38 mg/dL (7-18); CALCIUM 7.8 MG/DL (8.5-10.1); CARBON DIOXIDE 25 MMOL/L (21-32); CHLORIDE 104 MMOL/L (98-107); POTASSIUM 4.3 MMOL/L (3.5-5.1); SODIUM 139 MMOL/L (136-145)
--- NOTE | 2019-08-24 00:45 | Progress Note ---
DATE: 08/23/2019 CARDIOLOGY PROGRESS NOTE SUBJECTIVE: Patient had episodes of sinus tachycardia and nonsustained AFib with aberrancy. PHYSICAL EXAMINATION: VITAL SIGNS: Blood pressure 142/63, heart rate 124, respirations 30. LUNGS: Bilateral breath sounds. Rhonchi. CARDIAC: Regular rhythm. Rapid rate. Normal S1, S2. ABDOMEN: Soft. EXTREMITIES: Trace edema. LABORATORY DATA: White count 15, hemoglobin 6. Folate 34. IMPRESSION: 1. Severe anemia. 2. Physiologically appropriate sinus tachycardia. 3. Paroxysmal atrial and ventricular arrhythmias. 4. Myocardial ischemia. 5. Ventilator-dependent respiratory failure. 6. G-tube site bleeding. PLAN: 1. Transfusions of packed red cells. 2. Proton pump inhibitor. 3. No anti-platelet or anticoagulant therapy. 4. Iron replacement. 5. Ventilator support. 6. Discontinue antihypertensives in view of low blood pressure range. 7. We will follow. Augustine Fisher M.D. DR: LUKASZ JOB#: [id number] CC:
[2019-08-24] MEDS: D5NS 1,000 ML IV SCH ×2 (01:52→12:56)
[2019-08-24 04:00] VITALS: BP 102/67
--- NOTE | 2019-08-24 04:50 | NUR ---
NURSE NOTES: No acute distress noted. Pt sleeping in the bed. Tolerating current vent setting. Abd dressing intact and no bleeding noted. Will continue to monitor.
[2019-08-24 04:56] LABS: BASOPHILS % (AUTO) 0.6 % (0.0-2.0); EOSINOPHILS % (AUTO) 0.1 % (0.0-3.0); HEMATOCRIT 24.4 % (42.0-52.0); LYMPHOCYTES % (AUTO) 11.9 % (20.0-45.0); MEAN CORPUSCULAR VOLUME 100 FL (80-99); MONOCYTES % (AUTO) 9.4 % (1.0-10.0); NEUTROPHILS % (AUTO) 78.1 % (45.0-75.0); PLATELET COUNT 249 K/UL (150-450); RED BLOOD COUNT 2.45 M/UL (4.70-6.10); RED CELL DISTRIBUTION WIDTH 16.1 % (11.6-14.8); WHITE BLOOD COUNT 13.9 K/UL (4.8-10.8)
[2019-08-24 05:29] LABS: ALANINE AMINOTRANSFERASE 18 U/L (12-78); ALBUMIN 1.4 G/DL (3.4-5.0); ALBUMIN/GLOBULIN RATIO 0.3 (1.0-2.7); ALKALINE PHOSPHATASE 62 U/L (46-116); ANION GAP 11 mmol/L (5-15); ASPARTATE AMINO TRANSFERASE 26 U/L (15-37); BILIRUBIN,TOTAL 0.6 MG/DL (0.2-1.0); BLOOD UREA NITROGEN 38 mg/dL (7-18); CALCIUM 7.5 MG/DL (8.5-10.1); CARBON DIOXIDE 24 MMOL/L (21-32); CHLORIDE 104 MMOL/L (98-107); CREATININE 3.3 MG/DL (0.55-1.30); POTASSIUM 4.2 MMOL/L (3.5-5.1); SODIUM 139 MMOL/L (136-145)
--- NOTE | 2019-08-24 07:32 | NUR ---
HAND-OFF: Report given to KEHINDE Elise.
--- NOTE | 2019-08-24 07:46 | NUR ---
NURSE NOTES: Received report from KEHINDE Rodriguez. Patient in bed resting, no active s/s cardiac, respiratory distress noticed at this time. Patient open eyes spontaneously, makes eye contact, no verbal response at this time. Trach to vent Portex 8 AC 14 TV 450 Fio2 35% PEEP 5. Abdominal binder in place, no active bleeding noticed at this time. Endorsed Dr. Quinn paged regarding CBC/ BMP result, no new order received. Patient on right wrist restraint, cap refill <3 sec, able to move. Thakkar Catheter draining well to gravity at this time. IV on right hand 20G, left AC 20G, asymptomatic, patent, intact, IVF D5NS running @ 100ml/h. Bed in lowest position and locked, side rails upx3, call light within reach, bed alarm on. Contact isolation observed. Will continue to monitor.
[2019-08-24 08:00] VITALS: BP 110/68
[2019-08-24] MEDS: Lisinopril 20mg tab GT SCH ×2 (09:00→20:51)
[2019-08-24] MEDS: Heparin 5000 units/ml inj SUBQ SCH ×2 (09:00→21:00)
[2019-08-24] MEDS: Amantadine 100mg cap GT SCH (09:00)
[2019-08-24] MEDS: Ascorbic Acid 500mg tab GT SCH (09:00)
[2019-08-24] MEDS: Pantoprazole Inj IVP SCH ×2 (09:14→20:50)
--- NOTE | 2019-08-24 10:17 | Pulmonology Progress Note ---
Subjective ROS Limited/Unobtainable: Yes Constitutional: Denies: fever Allergies: Coded Allergies: No Known Allergies (Unverified , 08/07/19) Subjective remains ill had GT sinus tachy poor renal function vitals noted Objective Last 24 Hour Vital Signs Date Time Temp Pulse Resp B/P (MAP) Pulse Ox O2 Delivery O2 Flow Rate FiO2 08/24/19 08:00 97.7 104 33 110/68 (82) 98 08/24/19 08:00 35 08/24/19 08:00 Mechanical Ventilator 08/24/19 07:45 106 08/24/19 07:00 97 27 35 08/24/19 04:00 96 08/24/19 04:00 98.1 101 32 102/67 (79) 100 08/24/19 04:00 Mechanical Ventilator 08/24/19 04:00 35 08/24/19 02:50 97 26 35 08/24/19 00:00 35 08/24/19 00:00 98.8 118 24 112/64 (80) 100 08/24/19 00:00 98 08/24/19 00:00 Mechanical Ventilator 08/23/19 22:36 92 27 35 08/23/19 20:42 100/57 08/23/19 20:41 120 100/57 08/23/19 20:00 Mechanical Ventilator 08/23/19 20:00 98.7 118 32 104/57 (73) 100 08/23/19 20:00 35 08/23/19 19:29 102 26 35 08/23/19 19:26 107 08/23/19 19:02 117 98/61 (73) 08/23/19 16:19 170 28 94 08/23/19 16:08 110 110/53 (72) 08/23/19 16:00 99.2 115 22 108/70 (83) 95 08/23/19 16:00 35 08/23/19 16:00 Mechanical Ventilator 08/23/19 15:30 110 98/56 (70) 08/23/19 15:01 107 32 35 08/23/19 13:20 130 30 108/70 (83) 95 08/23/19 13:10 170 30 142/70 (94) 95 08/23/19 12:00 Mechanical Ventilator 08/23/19 12:00 35 08/23/19 12:00 117 08/23/19 12:00 99.4 106 22 111/71 (84) 95 08/23/19 12:00 Mechanical Ventilator 08/23/19 10:45 120 36 35 Intake and Output 08/23/19 08/24/19 19:00 07:00 Intake Total 2070 ml 1700 ml Output Total 200 ml 200 ml Balance 1870 ml 1500 ml Free Water 50 ml IV Total 1900 ml 1200 ml Tube Feeding 120 ml Blood Product 500 ml Output Urine Total 200 ml 200 ml # Bowel Movements 1 Objective WDWN trach reduced breath sounds bilaterally without rhonchi or wheeze [id number] tachy without MRG NABS nontender no CCE reduced LOC Laboratory Tests 08/23/19 14:40: White Blood Count 15.0H, Red Blood Count 1.78L, Hemoglobin 6.1*L, Hematocrit 19.0L, Mean Corpuscular Volume 107H, Mean Corpuscular Hemoglobin 34.2H, Mean Corpuscular Hemoglobin Concent 32.1, Red Cell Distribution Width 14.1, Platelet Count 370, Mean Platelet Volume 7.6, Neutrophils (%) (Auto) , Lymphocytes (%) ( Auto) , Monocytes (%) (Auto) , Eosinophils (%) (Auto) , Basophils (%) (Auto) , Differential Total Cells Counted 100, Neutrophils % (Manual) 70, Lymphocytes % ( Manual) 22, Monocytes % (Manual) 8, Eosinophils % (Manual) 0, Basophils % ( Manual) 0, Band Neutrophils 0, Platelet Estimate Adequate, Platelet Morphology Normal, Hypochromasia 3+, Anisocytosis 2+, Microcytosis 2+, Macrocytosis Occasional 08/23/19 23:41: White Blood Count 17.8H, Red Blood Count 2.43L, Hemoglobin 8.1#L, Hematocrit 23.8L, Mean Corpuscular Volume 98#, Mean Corpuscular Hemoglobin 33.4H, Mean Corpuscular Hemoglobin Concent 34.2, Red Cell Distribution Width 15.7H, Platelet Count 251, Mean Platelet Volume 8.5, Neutrophils (%) (Auto) 82.4H, Lymphocytes (%) (Auto) 8.0L, Monocytes (%) (Auto) 9.1, Eosinophils (%) (Auto) 0.0, Basophils (%) (Auto) 0.6, Sodium Level 139, Potassium Level 4.3, Chloride Level 104, Carbon Dioxide Level 25, Anion Gap 10, Blood Urea Nitrogen 38H, Creatinine 3.0H, Estimat Glomerular Filtration Rate 25.0, Glucose Level 148H, Calcium Level 7.8L 08/24/19 02:50: White Blood Count 13.9H, Red Blood Count 2.45L, Hemoglobin 8.0L, Hematocrit 24.4L, Mean Corpuscular Volume 100H, Mean Corpuscular Hemoglobin 32.6H, Mean Corpuscular Hemoglobin Concent 32.7, Red Cell Distribution Width 16.1H, Platelet Count 249, Mean Platelet Volume 8.4, Neutrophils (%) (Auto) 78.1H, Lymphocytes (%) (Auto) 11.9L, Monocytes (%) (Auto) 9.4, Eosinophils (%) (Auto) 0.1, Basophils (%) (Auto) 0.6, Sodium Level 139, Potassium Level 4.2, Chloride Level 104, Carbon Dioxide Level 24, Anion Gap 11, Blood Urea Nitrogen 38H, Creatinine 3.3H, Estimat Glomerular Filtration Rate 22.3, Glucose Level 134H, Calcium Level 7.5L, Magnesium Level 2.1, Total Bilirubin 0.6, Aspartate Amino Transf (AST/SGOT) 26, Alanine Aminotransferase (ALT/SGPT) 18, Alkaline Phosphatase 62, Pro-B-Type Natriuretic Peptide 803H, Total Protein 6.0L, Albumin 1.4L, Globulin 4.6, Albumin/Globulin Ratio 0.3L Current Medications Medications (Trade) Dose Ordered Sig/Nury Route PRN Reason Start Time Stop Time Status Last Admin Dose Admin Acetaminophen (Tylenol) 325 mg Q6H PRN RECTAL Temp >100.5 08/08/19 21:45 09/07/19 21:44 Acetaminophen (Tylenol) 650 mg Q4H PRN GT Mild Pain (Pain Scale 1-3) 08/08/19 10:45 09/07/19 10:44 08/22/19 15:04 Acetaminophen (Tylenol) 650 mg Q4H PRN GT Temp >100.5 08/08/19 10:45 09/07/19 10:44 08/22/19 20:19 Amantadine HCl (Symmetrel) 100 mg DAILY GT 08/09/19 09:00 09/08/19 08:59 08/23/19 08:46 Ascorbic Acid (Vitamin C) 250 mg DAILY GT 08/09/19 09:00 09/08/19 08:59 08/23/19 08:46 Dextrose/Sodium Chloride 1,000 ml @ 100 mls/hr Q10H IV 08/23/19 15:59 09/22/19 15:58 08/24/19 01:52 Doxazosin Mesylate (Cardura) 2 mg QHS GT 08/08/19 21:00 09/07/19 20:59 08/21/19 20:32 Folic Acid (Folate) 1 mg DAILY GT 08/08/19 14:30 09/07/19 14:29 08/23/19 08:46 Heparin Sodium (Porcine) (Heparin 5000 units/ml) 5,000 units EVERY 12 HOURS SUBQ 08/08/19 21:00 09/22/19 20:59 08/23/19 08:48 Hydralazine HCl (Apresoline) 10 mg Q6H PRN IV SBP> 160 08/08/19 21:45 11/06/19 21:44 Lisinopril (PriniviL) 20 mg Q12HR GT 08/08/19 21:00 09/07/19 20:59 08/21/19 20:33 Metoprolol Tartrate (Lopressor) 25 mg Q12HR GT 08/09/19 09:00 11/07/19 08:59 08/23/19 09:34 Multivitamins (Multivitamins) 1 tab DAILY GT 08/09/19 09:00 09/08/19 08:59 08/23/19 08:46 Pantoprazole (Protonix) 40 mg EVERY 12 HOURS IVP 08/09/19 23:00 09/08/19 22:59 08/24/19 09:14 Assessment/Plan Assessment/Plan anemia possible GIB sinus tachycardia respiratory failure trach chronic encephalopathy GT site infection low K fevers better severe protein calorie malnutrition hypotension PLAN dc planning on hold pending improved heart rate bolus fluids if needed vent support feeds per gi - GT placement and monitor wound care monitor renal to see ID follow up dc planning once improved still too ill to transfere impression, plan, and exam edited and reviewed in detail care discussed with Isaiah Villatoro MD Aug 24, 2019 10:17
--- NOTE | 2019-08-24 10:56 | Infectious Diseases Prog Note ---
Assessment/Plan Assessment/Plan A: Gastrostomy infection Pseudomonas & Providencia pneumonia VDRF Anemia Pressure ulcer Diverticulosis P; Observe off antibiotic Had PEG replacement Subjective ROS Limited/Unobtainable: Yes Neurologic: Reports: confusion, other - on restraint Allergies: Coded Allergies: No Known Allergies (Unverified , 08/07/19) Objective Vital Signs Last 24 Hour Vital Signs Date Time Temp Pulse Resp B/P (MAP) Pulse Ox O2 Delivery O2 Flow Rate FiO2 08/24/19 08:00 97.7 104 33 110/68 (82) 98 08/24/19 08:00 35 08/24/19 08:00 Mechanical Ventilator 08/24/19 07:45 106 08/24/19 07:00 97 27 35 08/24/19 04:00 96 08/24/19 04:00 98.1 101 32 102/67 (79) 100 08/24/19 04:00 Mechanical Ventilator 08/24/19 04:00 35 08/24/19 02:50 97 26 35 08/24/19 00:00 35 08/24/19 00:00 98.8 118 24 112/64 (80) 100 08/24/19 00:00 98 08/24/19 00:00 Mechanical Ventilator 08/23/19 22:36 92 27 35 08/23/19 20:42 100/57 08/23/19 20:41 120 100/57 08/23/19 20:00 Mechanical Ventilator 08/23/19 20:00 98.7 118 32 104/57 (73) 100 08/23/19 20:00 35 08/23/19 19:29 102 26 35 08/23/19 19:26 107 08/23/19 19:02 117 98/61 (73) 08/23/19 16:19 170 28 94 08/23/19 16:08 110 110/53 (72) 08/23/19 16:00 99.2 115 22 108/70 (83) 95 08/23/19 16:00 35 08/23/19 16:00 Mechanical Ventilator 08/23/19 15:30 110 98/56 (70) 08/23/19 15:01 107 32 35 08/23/19 13:20 130 30 108/70 (83) 95 08/23/19 13:10 170 30 142/70 (94) 95 08/23/19 12:00 Mechanical Ventilator 08/23/19 12:00 35 08/23/19 12:00 117 08/23/19 12:00 99.4 106 22 111/71 (84) 95 08/23/19 12:00 Mechanical Ventilator Height (Feet): 5 Height (Inches): 10.00 Weight (Pounds): 214 HEENT: status post trach Respiratory/Chest: lungs clear, other - on ventilator Cardiovascular: tachycardia Abdomen: soft, non tender, other - Gt feeding Extremities: no edema Neurologic/Psychiatric: other - awake, left hemiparesis Laboratory Tests Test 08/23/19 14:40 08/23/19 23:41 08/24/19 02:50 White Blood Count 15.0 K/UL (4.8-10.8) H 17.8 K/UL (4.8-10.8) H 13.9 K/UL (4.8-10.8) H Red Blood Count 1.78 M/UL (4.70-6.10) L 2.43 M/UL (4.70-6.10) L 2.45 M/UL (4.70-6.10) L Hemoglobin 6.1 G/DL (14.2-18.0) *L 8.1 G/DL (14.2-18.0) #L 8.0 G/DL (14.2-18.0) L Hematocrit 19.0 % (42.0-52.0) L 23.8 % (42.0-52.0) L 24.4 % (42.0-52.0) L Mean Corpuscular Volume 107 FL (80-99) H 98 FL (80-99) # 100 FL (80-99) H Mean Corpuscular Hemoglobin 34.2 PG (27.0-31.0) H 33.4 PG (27.0-31.0) H 32.6 PG (27.0-31.0) H Mean Corpuscular Hemoglobin Concent 32.1 G/DL (32.0-36.0) 34.2 G/DL (32.0-36.0) 32.7 G/DL (32.0-36.0) Red Cell Distribution Width 14.1 % (11.6-14.8) 15.7 % (11.6-14.8) H 16.1 % (11.6-14.8) H Platelet Count 370 K/UL (150-450) 251 K/UL (150-450) 249 K/UL (150-450) Mean Platelet Volume 7.6 FL (6.5-10.1) 8.5 FL (6.5-10.1) 8.4 FL (6.5-10.1) Neutrophils (%) (Auto) % (45.0-75.0) 82.4 % (45.0-75.0) H 78.1 % (45.0-75.0) H Lymphocytes (%) (Auto) % (20.0-45.0) 8.0 % (20.0-45.0) L 11.9 % (20.0-45.0) L Monocytes (%) (Auto) % (1.0-10.0) 9.1 % (1.0-10.0) 9.4 % (1.0-10.0) Eosinophils (%) (Auto) % (0.0-3.0) 0.0 % (0.0-3.0) 0.1 % (0.0-3.0) Basophils (%) (Auto) % (0.0-2.0) 0.6 % (0.0-2.0) 0.6 % (0.0-2.0) Differential Total Cells Counted 100 Neutrophils % (Manual) 70 % (45-75) Lymphocytes % (Manual) 22 % (20-45) Monocytes % (Manual) 8 % (1-10) Eosinophils % (Manual) 0 % (0-3) Basophils % (Manual) 0 % (0-2) Band Neutrophils 0 % (0-8) Platelet Estimate Adequate Platelet Morphology Normal Hypochromasia 3+ Anisocytosis 2+ Microcytosis 2+ Macrocytosis Occasional Sodium Level 139 MMOL/L (136-145) 139 MMOL/L (136-145) Potassium Level 4.3 MMOL/L (3.5-5.1) 4.2 MMOL/L (3.5-5.1) Chloride Level 104 MMOL/L (98-107) 104 MMOL/L (98-107) Carbon Dioxide Level 25 MMOL/L (21-32) 24 MMOL/L (21-32) Anion Gap 10 mmol/L (5-15) 11 mmol/L (5-15) Blood Urea Nitrogen 38 mg/dL (7-18) H 38 mg/dL (7-18) H Creatinine 3.0 MG/DL (0.55-1.30) H 3.3 MG/DL (0.55-1.30) H Estimat Glomerular Filtration Rate 25.0 mL/min (>60) 22.3 mL/min (>60) Glucose Level 148 MG/DL (74-106) H 134 MG/DL (74-106) H Calcium Level 7.8 MG/DL (8.5-10.1) L 7.5 MG/DL (8.5-10.1) L Magnesium Level 2.1 MG/DL (1.8-2.4) Total Bilirubin 0.6 MG/DL (0.2-1.0) Aspartate Amino Transf (AST/SGOT) 26 U/L (15-37) Alanine Aminotransferase (ALT/SGPT) 18 U/L (12-78) Alkaline Phosphatase 62 U/L (46-116) Pro-B-Type Natriuretic Peptide 803 pg/mL (0-125) H Total Protein 6.0 G/DL (6.4-8.2) L Albumin 1.4 G/DL (3.4-5.0) L Globulin 4.6 g/dL Albumin/Globulin Ratio 0.3 (1.0-2.7) L Current Medications Medications (Trade) Dose Ordered Sig/Nury Route PRN Reason Start Time Stop Time Status Last Admin Dose Admin Acetaminophen (Tylenol) 325 mg Q6H PRN RECTAL Temp >100.5 08/08/19 21:45 09/07/19 21:44 Acetaminophen (Tylenol) 650 mg Q4H PRN GT Mild Pain (Pain Scale 1-3) 08/08/19 10:45 09/07/19 10:44 08/22/19 15:04 Acetaminophen (Tylenol) 650 mg Q4H PRN GT Temp >100.5 08/08/19 10:45 09/07/19 10:44 08/22/19 20:19 Amantadine HCl (Symmetrel) 100 mg DAILY GT 08/09/19 09:00 09/08/19 08:59 08/23/19 08:46 Ascorbic Acid (Vitamin C) 250 mg DAILY GT 08/09/19 09:00 09/08/19 08:59 08/23/19 08:46 Dextrose/Sodium Chloride 1,000 ml @ 100 mls/hr Q10H IV 08/23/19 15:59 09/22/19 15:58 08/24/19 01:52 Doxazosin Mesylate (Cardura) 2 mg QHS GT 08/08/19 21:00 09/07/19 20:59 08/21/19 20:32 Folic Acid (Folate) 1 mg DAILY GT 08/08/19 14:30 09/07/19 14:29 08/23/19 08:46 Heparin Sodium (Porcine) (Heparin 5000 units/ml) 5,000 units EVERY 12 HOURS SUBQ 08/08/19 21:00 09/22/19 20:59 08/23/19 08:48 Hydralazine HCl (Apresoline) 10 mg Q6H PRN IV SBP> 160 08/08/19 21:45 11/06/19 21:44 Lisinopril (PriniviL) 20 mg Q12HR GT 08/08/19 21:00 09/07/19 20:59 08/21/19 20:33 Metoprolol Tartrate (Lopressor) 25 mg Q12HR GT 08/09/19 09:00 11/07/19 08:59 08/23/19 09:34 Multivitamins (Multivitamins) 1 tab DAILY GT 08/09/19 09:00 09/08/19 08:59 08/23/19 08:46 Pantoprazole (Protonix) 40 mg EVERY 12 HOURS IVP 08/09/19 23:00 09/08/19 22:59 08/24/19 09:14 Issa Snow MD Aug 24, 2019 10:56
--- NOTE | 2019-08-24 11:57 | NUR ---
RD ASSESSMENT & RECOMMENDATIONS SEE CARE ACTIVITY FOR COMPLETE ASSESSMENT DAILY ESTIMATED NEEDS: Needs based on Critical care, wound 79gk 22-28 kcals/kg 0369-4502 total kcals 1.25-2 g protein/kg 99-158 g total protein 25-30 mL/kg 5280-5315 total fluid mLs NUTRITION DIAGNOSIS: Increased pro needs r/t wound healing as evidenced by pt w/ multiple wounds, refer to WC nurse eval, trach and peg dep, s/p PEG re-placement, TF held at this time. CURRENT TF:NPO ENTERAL NUTRITION RECOMMENDATIONS: Glucerna 1.2 @ 65ml/hr x 24 hrs to provide 1560ml, 1872kcal, 94g prot, 1257ml free water - Once able to resume TF, rec Glucerna 1.2 for carb control -> BGs consistently mildly elevated (134-148) - Initiate Glucerna 1.2 @ 25ml/hr x 6hrs, advance 10ml q 4-6 hrs as tolerated to goal rate - Once TF well tolerated at goal, add Prosource 1pkt QD (11g pro) to better meet est pro needs. - Flush per MD. HOB over 30 degrees ADDITIONAL RECOMMENDATIONS: 1) Per SNF: 5'11" and 174 lbs 2) Wound care: add JANE BID via TF + Zn SO4 220 mg qd x10 days 3) Maintain calibrated bed scale wts 4) Monitor lytes, replete as needed 5) Monitor BGs, need for NISS 6) Monitor renal fxn- worsening, creat 1.0-> 3.3
[2019-08-24 12:00] VITALS: BP 129/74
--- NOTE | 2019-08-24 13:00 | NUR ---
NURSE NOTES: Per Dr. Hawk resume GT feeding same formula and rate, reduce IV rate 100ml/h to 25ml/h. Order noted, entered, carried out.
--- NOTE | 2019-08-24 14:43 | Surgery Progress Note ---
Surgery Progress Note Subjective Additional Comments no bleeding transfused h/h stable Objective Last 24 Hour Vital Signs Date Time Temp Pulse Resp B/P (MAP) Pulse Ox O2 Delivery O2 Flow Rate FiO2 08/24/19 12:00 35 08/24/19 12:00 98.2 105 37 129/74 (92) 99 08/24/19 12:00 Mechanical Ventilator 08/24/19 11:32 102 08/24/19 11:09 99 28 35 08/24/19 08:00 97.7 104 33 110/68 (82) 98 08/24/19 08:00 35 08/24/19 08:00 Mechanical Ventilator 08/24/19 07:45 106 08/24/19 07:00 97 27 35 08/24/19 04:00 96 08/24/19 04:00 98.1 101 32 102/67 (79) 100 08/24/19 04:00 Mechanical Ventilator 08/24/19 04:00 35 08/24/19 02:50 97 26 35 08/24/19 00:00 35 08/24/19 00:00 98.8 118 24 112/64 (80) 100 08/24/19 00:00 98 08/24/19 00:00 Mechanical Ventilator 08/23/19 22:36 92 27 35 08/23/19 20:42 100/57 08/23/19 20:41 120 100/57 08/23/19 20:00 Mechanical Ventilator 08/23/19 20:00 98.7 118 32 104/57 (73) 100 08/23/19 20:00 35 08/23/19 19:29 102 26 35 08/23/19 19:26 107 08/23/19 19:02 117 98/61 (73) 08/23/19 16:19 170 28 94 08/23/19 16:08 110 110/53 (72) 08/23/19 16:00 99.2 115 22 108/70 (83) 95 08/23/19 16:00 35 08/23/19 16:00 Mechanical Ventilator 08/23/19 15:30 110 98/56 (70) 08/23/19 15:01 107 32 35 I&O Intake and Output 08/23/19 08/24/19 19:00 07:00 Intake Total 2070 ml 1700 ml Output Total 200 ml 200 ml Balance 1870 ml 1500 ml Free Water 50 ml IV Total 1900 ml 1200 ml Tube Feeding 120 ml Blood Product 500 ml Output Urine Total 200 ml 200 ml # Bowel Movements 1 Dressing: other Wound: other Drains: other Cardiovascular: RSR Respiratory: decreased breath sounds Abdomen: soft, present bowel sounds, other Extremities: no cyanosis Laboratory Tests Test 08/23/19 23:41 08/24/19 02:50 White Blood Count 17.8 K/UL (4.8-10.8) H 13.9 K/UL (4.8-10.8) H Red Blood Count 2.43 M/UL (4.70-6.10) L 2.45 M/UL (4.70-6.10) L Hemoglobin 8.1 G/DL (14.2-18.0) #L 8.0 G/DL (14.2-18.0) L Hematocrit 23.8 % (42.0-52.0) L 24.4 % (42.0-52.0) L Mean Corpuscular Volume 98 FL (80-99) # 100 FL (80-99) H Mean Corpuscular Hemoglobin 33.4 PG (27.0-31.0) H 32.6 PG (27.0-31.0) H Mean Corpuscular Hemoglobin Concent 34.2 G/DL (32.0-36.0) 32.7 G/DL (32.0-36.0) Red Cell Distribution Width 15.7 % (11.6-14.8) H 16.1 % (11.6-14.8) H Platelet Count 251 K/UL (150-450) 249 K/UL (150-450) Mean Platelet Volume 8.5 FL (6.5-10.1) 8.4 FL (6.5-10.1) Neutrophils (%) (Auto) 82.4 % (45.0-75.0) H 78.1 % (45.0-75.0) H Lymphocytes (%) (Auto) 8.0 % (20.0-45.0) L 11.9 % (20.0-45.0) L Monocytes (%) (Auto) 9.1 % (1.0-10.0) 9.4 % (1.0-10.0) Eosinophils (%) (Auto) 0.0 % (0.0-3.0) 0.1 % (0.0-3.0) Basophils (%) (Auto) 0.6 % (0.0-2.0) 0.6 % (0.0-2.0) Sodium Level 139 MMOL/L (136-145) 139 MMOL/L (136-145) Potassium Level 4.3 MMOL/L (3.5-5.1) 4.2 MMOL/L (3.5-5.1) Chloride Level 104 MMOL/L (98-107) 104 MMOL/L (98-107) Carbon Dioxide Level 25 MMOL/L (21-32) 24 MMOL/L (21-32) Anion Gap 10 mmol/L (5-15) 11 mmol/L (5-15) Blood Urea Nitrogen 38 mg/dL (7-18) H 38 mg/dL (7-18) H Creatinine 3.0 MG/DL (0.55-1.30) H 3.3 MG/DL (0.55-1.30) H Estimat Glomerular Filtration Rate 25.0 mL/min (>60) 22.3 mL/min (>60) Glucose Level 148 MG/DL (74-106) H 134 MG/DL (74-106) H Calcium Level 7.8 MG/DL (8.5-10.1) L 7.5 MG/DL (8.5-10.1) L Magnesium Level 2.1 MG/DL (1.8-2.4) Total Bilirubin 0.6 MG/DL (0.2-1.0) Aspartate Amino Transf (AST/SGOT) 26 U/L (15-37) Alanine Aminotransferase (ALT/SGPT) 18 U/L (12-78) Alkaline Phosphatase 62 U/L (46-116) Pro-B-Type Natriuretic Peptide 803 pg/mL (0-125) H Total Protein 6.0 G/DL (6.4-8.2) L Albumin 1.4 G/DL (3.4-5.0) L Globulin 4.6 g/dL Albumin/Globulin Ratio 0.3 (1.0-2.7) L Plan Problems: (1) Anemia Assessment & Plan: 08/22 acute brisk pulsatile active bleeding from the G-tube site. Significant for blood identified on the dressings and in the patient's bed therefore immediate hemostasis indicated and recommended. At the bedside patient was given pain medication morphine IV and the G-tube site incision was extended and postop bleeding identified from around the level of the deep subcutaneous tissue. 2 [id number] 0 silk sutures were placed and hemostasis was obtained. The skin incision was reapproximated using 0 silk interrupted sutures. Patient taught procedure well. Hemostasis noted. Labs ordered will monitor (2) Unstageable decubitus ulcer Assessment & Plan: Pt presented on admission with multiple Pressure Injuries. Pt has a Tracheostomy and no areas of skin concerns noted under tracheal collar. Unstageable Sacral Pressure Injury(L)9.5cm x (W)10cm. Base of wound is 75% mixed slough and eschar,25% carolynn, Edges adherent with surrounding purple and maroon indurated borders. No odor or exudate noted. DTPI L Heel (L)3.7cm x (W)4.5cm. Base of wound is maroon and indurated with surrounding non-Blanching erythema. Callused skin periwound. Reabsorbing DTPI Castine L Foot (L)3.3cm x (W)2.5cm. Base of Pressure Injury is maroon but dry. No erythema or fluctuance periwound. DTPI Lateral L 1st metatarsal(L)1.5cm x (W)2cm. Base of wound is maroon and indurated.Callused skin periwound. DTPI Lateral R Heel (L)4.4cm x (W)6cm. Base of wound is indurated ,purple with surrounding maroon and fluctuant borders.Callusing periwound. DTPI R Hallux (L)1.8cm x (W)1.9cm. Base of wound is indurated and purple. Callusing periwound. DTPI Lateral R 1st metatarsal(L)2cm x (W)2.7cm. Base of wound is indurated and maroon. Callusing periwound. Tx.Plan: Cleanse Sacral wound with Saline. Apply TheraHoney. Apply Moisture Barrier Paste periwound. Cover with Optifoam drsg. Change every 3 days and prn. Apply Cavilon Skin Barrier to wounds L L Heel , L st metatarsal,Dorsal L Foot. Cover each Site with Optifoam drsg. Change every 7 days and prn. Apply Cavilon Skin Barrier to R Heel, R Hallux, R 1st metatarsal. Cover each site with Optifoam drsg. Change every 7 days and prn. APM/KHOA Mattress. Reposition at least every 2hours or as tolerated. Off-Load Heels with Pillows. (3) Leaking PEG tube Assessment & Plan: prior peg removed plan new placement soon will monitor site drainage noted packing placed Minimal drainage from prior G-tube site discussed with nursing about packing and dressings will continue current care plan plan for PEG tube once improved s/p peg 08/21 tf d/c plan Lung bases: Atelectasis at the lung bases. Liver: Unremarkable. No mass. Gallbladder and bile ducts: Unremarkable. No calcified stones. No ductal dilation. Pancreas: Unremarkable. No mass. No ductal dilation. Spleen: Unremarkable. No splenomegaly. Adrenals: Unremarkable. No mass. Kidneys and ureters: Nonobstructing stone in the lower pole of the right kidney. Stomach and bowel: Tract from a recent percutaneous gastrostomy tube which is healing in the subcutaneous fat. Surrounding inflammatory changes but no abscess. Severe colonic diverticulosis within the sigmoid colon with mural hypertrophy however no surrounding inflammatory changes to suggest acute diverticulitis. Underlying malignancy not excluded. No obstruction. Intraperitoneal space: Unremarkable. No free air. No significant fluid collection. Bones/joints: No acute fracture. No dislocation. Soft tissues: Fat stranding in the ventral abdomen. Vasculature: Unremarkable. No abdominal aortic aneurysm. Lymph nodes: Unremarkable. No enlarged lymph nodes. Tubes, lines and devices: Thakkar catheter within the bladder. IMPRESSION: 1. Severe colonic diverticulosis within the sigmoid colon with mural hypertrophy however no surrounding inflammatory changes to suggest acute diverticulitis. Underlying malignancy not excluded. 2. Tract from a recent percutaneous gastrostomy tube which is healing in the subcutaneous fat. Surrounding inflammatory changes but no abscess. (4) Person under investigation for COVID-19 Assessment & Plan: There is a tracheostomy. Calcified granuloma is seen in the right midlung. Granulomatous calcified nodes are seen in the left aortopulmonary window. No definite infiltrates, effusions, congestion. The heart size is upper limits normal. Impression: No definite acute abnormality Evidence of old granulomatous disease Homero Cummings Aug 24, 2019 14:43
--- NOTE | 2019-08-24 15:53 | NUR ---
*-* INSURANCE *-* UPDATED CLINICALS AND REVIEWS HAVE BEEN FAXED TO: [facility] [id number] COCOM:NICHOLAS [phone] P: [phone] F: [phone] AFTER HOURS # [phone]
[2019-08-24 16:00] VITALS: BP 122/68
--- NOTE | 2019-08-24 16:31 | NUR ---
CASE MANAGEMENT: REVIEW 08/24/19 SI: A-FIB . TACHYCARDIA . ACTIVE BLEEDING FROM THE G-TUBE SITE EGD w/PEG PLACEMENT TODAY 08/21 98.2 105 37 129/74 99% MECH VENT TRACH FIO2 35 WBC 13.9 H/H 8.0/24.4 BUN/CREAT 38/3.3 CA+7.5 BNP 803 ALB 1.4 IS: IV D5@25ML/HR IV PROTONIX BID HEPARIN SUBQ BID LOPRESSOR GT BID GT FEEDING GT SITE WOUND CARE PACKING AND DRESSINGS \:STEP DOWN UNIT STATUS [facility]: [facility]: 6/24 H/H 6.1/19.0 TRANSFUSION X2 MONITOR H/H CONT VENT SUPPORT
--- NOTE | 2019-08-24 17:15 | Consultation ---
DATE OF CONSULTATION: 08/24/2019 NEPHROLOGY CONSULTATION CONSULTING PHYSICIAN: Ashwin Young MD. ATTENDING PHYSICIAN: Isaiah Hurt MD. REASON FOR CONSULTATION: Elevated BUN and creatinine. HISTORY OF PRESENT ILLNESS: This is a 74-year-old male, who was admitted to the hospital on 08/07/[address] Hurt. The patient has multiple medical problems. He is from a detention from a subacute facility. The patient is ventilator dependent resident. I am asked to see the patient for elevation of BUN and creatinine. PAST MEDICAL HISTORY: 1. Ventilator-dependant respiratory failure. 2. Status post tracheostomy. 3. History of chronic kidney failure stage III. 4. Encephalopathy. 5. Anemia of chronic kidney disease. MEDICATIONS: IV fluids, D5 half NS, Tylenol p.r.n., amlodipine, ascorbic acid, Cardura, folic acid, subcutaneous heparin, hydralazine p.r.n. SBP greater than 160, lisinopril, metoprolol, morphine p.r.n., multivitamins, Protonix. ALLERGIES: No known drug allergies. FAMILY HISTORY: Unable to obtain due to his mental status. SOCIAL HISTORY: Unable to obtain due to his mental status. REVIEW OF SYSTEMS: Unable to obtain due to his mental status. PHYSICAL EXAMINATION: GENERAL: This is an elderly, chronically ill male, who is in no acute distress. VITAL SIGNS: Blood pressure 110/68, pulse 104, sinus tachycardia, respirations 33, temperature 97.7 axillary. HEENT: The head is normocephalic and atraumatic. Pupils are equal, round, and reactive to light. NECK: Supple. He has tracheostomy. LUNGS: Bilateral rhonchi. HEART: Tachycardia. S1 and S2. No rubs, murmurs, or gallops. ABDOMEN: Pendulous. He has a G-tube. EXTREMITIES: No clubbing, cyanosis, or edema. NEUROLOGICAL: He is obtunded. There were no gross focal findings. LABORATORY AND ANCILLARY DATA: CBC shows hematocrit 24.4, relatively stable, WBC 13,900, platelet count 249,000. Serum chemistry, electrolytes within normal limits, BUN 38, creatinine 3.3, relatively stable. Albumin 1.4. Magnesium 2.1. Estimated GFR was previously greater than 60, but currently down to 22. Of note is that the patient had CT scan of the abdomen with intravenous contrast on 08/11/2019. ASSESSMENT: 1. Multifactorial acute kidney injury, which includes volume depletion, most likely contributing factors IV contrast. 2. Ventilator-dependant respiratory failure. 3. Status post tracheostomy. 4. History of chronic kidney failure stage III. 5. Encephalopathy. 6. Anemia of chronic kidney disease. PLAN: His kidney injury may last up to 2 weeks. I will follow together with the attending physician. Thank you, Dr. Hurt, for letting me to participate in the care of this interesting patient. Ashwin Young M.D. DR: CLINTON JOB#: [id number] CC:
--- NOTE | 2019-08-24 17:22 | NUR ---
NURSE NOTES: Paged Dr. Hawk, when residual from GT checked, dark-red 30ml residual assessed, BP 110/62, HR 111, no active bleeding from outside at this time. No new order received at this time. Will continue to follow up.
--- NOTE | 2019-08-24 18:27 | NUR ---
NURSE NOTES: Dr. Hurt made aware residual dark-red colored 30ml at this time, no answer from Dr. Hawk at this time. Per Dr. Hurt order STAT CBC. Order noted, entered, carried out.
[2019-08-24 19:14] LABS: HEMATOCRIT 21.6 % (42.0-52.0); HEMOGLOBIN 7.2 G/DL (14.2-18.0); MEAN CORPUSCULAR VOLUME 97 FL (80-99); PLATELET COUNT 258 K/UL (150-450); RED BLOOD COUNT 2.23 M/UL (4.70-6.10); RED CELL DISTRIBUTION WIDTH 16.6 % (11.6-14.8)
--- NOTE | 2019-08-24 19:15 | NUR ---
HAND-OFF: Report given to KEHINDE Vera. Endorsed plan of care. Endorsed to follow up with MD for STAT CBC level.
--- NOTE | 2019-08-24 19:16 | NUR ---
NURSE NOTES: Received report from Graciela Aronld RN. Patient obtunded, vss, on cardcac monitor with no acute distress. Patient is clean and on right upper arm soft restraints for safety. Trch to vent Portex 8 AC 14, TV 450, Fio2 35%, and PEEP of 5. Patient has a G-tube with no feeding running and no signs of bleeding at this time. G-tube site is dry with scant soiled dressing and abdominal binder is in place. Thakkar is draining to gravity. Wounds are noted and dressing is intact. Right hand IV 20g and left AC 20g running D5NS at 25mL/hr. Bed is at its lowest position, locked, call light in reach and x 3 bed rails are up. Will continue to monitor.
[2019-08-24 20:00] VITALS: BP 143/81
[2019-08-24] MEDS: Doxazosin 4mg tab GT SCH (20:52)
--- NOTE | 2019-08-24 21:34 | General Progress Note ---
Assessment/Plan Assessment/Plan: Assessment - Arterial GT site bleeding - repaired - Anemia -acute and chronic - GT migration out of stomach - Mushroom cap in anterior abdominal wall (GT removed) - Abdominal wall induration and discharge --> definite improvement - anemia - OB (+) stools - due to ulcerative gastritis, no colonoscopy per DPOA - s/p Trach - Macrocytic indicies - normal B12 and folate Recommendations - PPI - transfuse - restart TF - off abx per ID - follow exam and labs - transfuse as needed - d/c PO Iron ----> IV Fe - laxative, PRN Subjective Allergies: Coded Allergies: No Known Allergies (Unverified , 08/07/19) Subjective Above noted patient seen this am No further GI site bleeding Objective Last 24 Hour Vital Signs Date Time Temp Pulse Resp B/P (MAP) Pulse Ox O2 Delivery O2 Flow Rate FiO2 08/24/19 20:51 107 143/81 08/24/19 20:51 143/81 08/24/19 20:00 99.1 107 37 143/81 (101) 100 08/24/19 20:00 116 08/24/19 20:00 Mechanical Ventilator 08/24/19 20:00 35 08/24/19 19:01 117 38 35 08/24/19 16:00 102 08/24/19 16:00 35 08/24/19 16:00 Mechanical Ventilator 08/24/19 16:00 98.2 104 35 122/68 (86) 100 08/24/19 14:43 110 32 35 08/24/19 12:00 35 08/24/19 12:00 98.2 105 37 129/74 (92) 99 08/24/19 12:00 Mechanical Ventilator 08/24/19 11:32 102 08/24/19 11:09 104 28 35 08/24/19 08:00 97.7 104 33 110/68 (82) 98 08/24/19 08:00 35 08/24/19 08:00 Mechanical Ventilator 08/24/19 07:45 106 08/24/19 07:00 97 27 35 08/24/19 04:00 96 08/24/19 04:00 98.1 101 32 102/67 (79) 100 08/24/19 04:00 Mechanical Ventilator 08/24/19 04:00 35 08/24/19 02:50 97 26 35 08/24/19 00:00 35 08/24/19 00:00 98.8 118 24 112/64 (80) 100 08/24/19 00:00 98 08/24/19 00:00 Mechanical Ventilator 08/23/19 22:36 92 27 35 Intake and Output 08/23/19 08/24/19 19:00 07:00 Intake Total 2070 ml 1700 ml Output Total 200 ml 200 ml Balance 1870 ml 1500 ml Free Water 50 ml IV Total 1900 ml 1200 ml Tube Feeding 120 ml Blood Product 500 ml Output Urine Total 200 ml 200 ml # Bowel Movements 1 Laboratory Tests 08/23/19 23:41: White Blood Count 17.8H, Red Blood Count 2.43L, Hemoglobin 8.1#L, Hematocrit 23.8L, Mean Corpuscular Volume 98#, Mean Corpuscular Hemoglobin 33.4H, Mean Corpuscular Hemoglobin Concent 34.2, Red Cell Distribution Width 15.7H, Platelet Count 251, Mean Platelet Volume 8.5, Neutrophils (%) (Auto) 82.4H, Lymphocytes (%) (Auto) 8.0L, Monocytes (%) (Auto) 9.1, Eosinophils (%) (Auto) 0.0, Basophils (%) (Auto) 0.6, Sodium Level 139, Potassium Level 4.3, Chloride Level 104, Carbon Dioxide Level 25, Anion Gap 10, Blood Urea Nitrogen 38H, Creatinine 3.0H, Estimat Glomerular Filtration Rate 25.0, Glucose Level 148H, Calcium Level 7.8L 08/24/19 02:50: White Blood Count 13.9H, Red Blood Count 2.45L, Hemoglobin 8.0L, Hematocrit 24.4L, Mean Corpuscular Volume 100H, Mean Corpuscular Hemoglobin 32.6H, Mean Corpuscular Hemoglobin Concent 32.7, Red Cell Distribution Width 16.1H, Platelet Count 249, Mean Platelet Volume 8.4, Neutrophils (%) (Auto) 78.1H, Lymphocytes (%) (Auto) 11.9L, Monocytes (%) (Auto) 9.4, Eosinophils (%) (Auto) 0.1, Basophils (%) (Auto) 0.6, Sodium Level 139, Potassium Level 4.2, Chloride Level 104, Carbon Dioxide Level 24, Anion Gap 11, Blood Urea Nitrogen 38H, Creatinine 3.3H, Estimat Glomerular Filtration Rate 22.3, Glucose Level 134H, Calcium Level 7.5L, Magnesium Level 2.1, Total Bilirubin 0.6, Aspartate Amino Transf (AST/SGOT) 26, Alanine Aminotransferase (ALT/SGPT) 18, Alkaline Phosphatase 62, Pro-B-Type Natriuretic Peptide 803H, Total Protein 6.0L, Albumin 1.4L, Globulin 4.6, Albumin/Globulin Ratio 0.3L 08/24/19 19:05: White Blood Count 12.0H, Red Blood Count 2.23L, Hemoglobin 7.2L, Hematocrit 21.6L, Mean Corpuscular Volume 97, Mean Corpuscular Hemoglobin 32.2H, Mean Corpuscular Hemoglobin Concent 33.3, Red Cell Distribution Width 16.6H, Platelet Count 258, Mean Platelet Volume 6.8, Neutrophils (%) (Auto) , Lymphocytes (%) (Auto) , Monocytes (%) (Auto) , Eosinophils (%) (Auto) , Basophils (%) (Auto) , Differential Total Cells Counted 100, Neutrophils % ( Manual) 82H, Lymphocytes % (Manual) 8L, Monocytes % (Manual) 9, Eosinophils % ( Manual) 1, Basophils % (Manual) 0, Band Neutrophils 0, Platelet Estimate Adequate, Platelet Morphology Normal, Polychromasia 1+, Anisocytosis 1+, Macrocytosis 1+ Height (Feet): 5 Height (Inches): 10.00 Weight (Pounds): 249 Objective Obese AA Man NCAT (+) Trach coarse BS RR Abd obese, packed old GT site, induration smaller in size (+) GT at new site trace edema non interactive Rubia Hawk MD Aug 24, 2019 21:34
[2019-08-24] MEDS: Acetaminophen 650mg/20.3ml GT PRN (23:54)
[2019-08-25] VITALS (7 sets, daily range): BP systolic 98–155; BP diastolic 68–93
--- NOTE | 2019-08-25 02:15 | Progress Note ---
DATE: 08/24/2019 CARDIOLOGY PROGRESS NOTE SUBJECTIVE: Condition remains critical. Prognosis guarded. Full ventilator support. Low normal blood pressure range. Sinus tachycardia. PHYSICAL EXAMINATION: VITAL SIGNS: Blood pressure 102/67, heart rate 101, respirations 32, afebrile. LUNGS: Coarse breath sounds. Rhonchi. CARDIAC: Regular rhythm. Rapid rate. Normal S1, S2. ABDOMEN: Soft. EXTREMITIES: Trace edema. LABORATORY DATA: White count 12, hemoglobin 7.2. Potassium 4.2, BUN 38, creatinine 3.3. Albumin 1.4. Pro natriuretic peptide 800. IMPRESSION: 1. Worsening renal function and failure. 2. Sepsis. 3. Shock. 4. Anemia. 5. Acute on chronic diastolic congestive heart failure. 6. Respiratory failure. 7. Severe protein-calorie malnutrition. 8. Intravascular volume depletion. PLAN: 1. Full ventilator support with trach care. 2. Volume support. 3. No diuretics. 4. Avoid tight blood pressure control. 5. Transfuse 1 unit of packed red blood cells. Augustine Fisher M.D. DR: LUKASZ JOB#: [id number] CC:
[2019-08-25 05:13] LABS: BASOPHILS % (AUTO) 0.8 % (0.0-2.0); EOSINOPHILS % (AUTO) 0.3 % (0.0-3.0); HEMATOCRIT 27.5 % (42.0-52.0); LYMPHOCYTES % (AUTO) 10.3 % (20.0-45.0); MEAN CORPUSCULAR VOLUME 96 FL (80-99); MONOCYTES % (AUTO) 11.8 % (1.0-10.0); NEUTROPHILS % (AUTO) 76.8 % (45.0-75.0); PLATELET COUNT 234 K/UL (150-450); RED BLOOD COUNT 2.86 M/UL (4.70-6.10); WHITE BLOOD COUNT 10.4 K/UL (4.8-10.8)
[2019-08-25 05:33] LABS: BLOOD UREA NITROGEN 59 mg/dL (7-18); CALCIUM 8.2 MG/DL (8.5-10.1); CHLORIDE 107 MMOL/L (98-107); CREATININE 3.6 MG/DL (0.55-1.30); POTASSIUM 4.4 MMOL/L (3.5-5.1); SODIUM 142 MMOL/L (136-145)
[2019-08-25 06:01] LABS: CARBON DIOXIDE 22 MMOL/L (21-32)
--- NOTE | 2019-08-25 07:30 | NUR ---
HAND-OFF: Report given to KEHINDE Elise.
--- NOTE | 2019-08-25 07:31 | NUR ---
NURSE NOTES: Received patient in bed. In no apparent distress. PEG noted. Feeding on hold at this time. Vent dependent. Thakkar noted with yellow urine in drainage bag. Contact isolation observed. Will continue plan of care.
--- NOTE | 2019-08-25 08:25 | NUR ---
NURSE NOTES: Dr. Hawk at bedside. Assessed patient's PEG, aspirated for residuals, with brown colored gastric content. Dr. Hawk said that it's ok to restart tube feeding per [facility] recommendation.
[2019-08-25] MEDS: Heparin 5000 units/ml inj SUBQ SCH ×2 (08:57→20:37)
[2019-08-25] MEDS: Ascorbic Acid 500mg tab GT SCH (09:12)
[2019-08-25] MEDS: Pantoprazole Inj IVP SCH ×2 (09:12→20:37)
[2019-08-25] MEDS: Amantadine 100mg cap GT SCH (09:13)
[2019-08-25] MEDS: Lisinopril 20mg tab GT SCH ×2 (09:13→20:37)
--- NOTE | 2019-08-25 10:33 | Infectious Diseases Prog Note ---
"Assessment/Plan Assessment/Plan antibiotics : none A 1. pseudomonas | providencia pneumonia s/p rx COVID negative x 2 2. klebsiella | pseudomonas | VRE Gt site cellulitis 3. respiratory failure 4. leucocytosis resolved 5. s/p GT placement P 1. continue off antibiotics 2. will follow up cultures Subjective ROS Limited/Unobtainable: Yes Allergies: Coded Allergies: No Known Allergies (Unverified , 08/07/19) Objective Vital Signs Last 24 Hour Vital Signs Date Time Temp Pulse Resp B/P (MAP) Pulse Ox O2 Delivery O2 Flow Rate FiO2 08/25/19 09:13 135 152/93 08/25/19 09:13 152/93 08/25/19 08:00 98.2 135 22 152/93 (112) 97 08/25/19 08:00 Mechanical Ventilator 08/25/19 07:48 91 08/25/19 07:14 86 22 35 08/25/19 06:51 70 08/25/19 04:01 98.5 135 24 130/79 (96) 100 08/25/19 04:00 Mechanical Ventilator 08/25/19 04:00 35 08/25/19 04:00 96 08/25/19 04:00 97.5 135 26 98/68 (78) 100 08/25/19 03:12 98 28 35 08/25/19 00:24 98.6 08/25/19 00:00 35 08/25/19 00:00 98.6 107 30 137/80 (99) 100 08/25/19 00:00 112 08/25/19 00:00 Mechanical Ventilator 08/24/19 23:06 104 34 35 08/24/19 20:51 107 143/81 08/24/19 20:51 143/81 08/24/19 20:00 99.1 107 37 143/81 (101) 100 08/24/19 20:00 116 08/24/19 20:00 Mechanical Ventilator 08/24/19 20:00 35 08/24/19 19:01 117 38 35 08/24/19 16:00 102 08/24/19 16:00 35 08/24/19 16:00 Mechanical Ventilator 08/24/19 16:00 98.2 104 35 122/68 (86) 100 08/24/19 14:43 110 32 35 6/25/20 12:00 35 08/24/19 12:00 98.2 105 37 129/74 (92) 99 08/24/19 12:00 Mechanical Ventilator 08/24/19 11:32 102 08/24/19 11:09 104 28 35 Height (Feet): 5 Height (Inches): 10.00 Weight (Pounds): 249 HEENT: status post trach Respiratory/Chest: lungs clear Cardiovascular: normal rate, regular rhythm, no gallop/murmur Abdomen: soft, non tender, other - Gt Extremities: no edema Laboratory Tests Test 08/24/19 19:05 08/25/19 04:35 White Blood Count 12.0 K/UL (4.8-10.8) H 10.4 K/UL (4.8-10.8) Red Blood Count 2.23 M/UL (4.70-6.10) L 2.86 M/UL (4.70-6.10) L Hemoglobin 7.2 G/DL (14.2-18.0) L 9.0 G/DL (14.2-18.0) L Hematocrit 21.6 % (42.0-52.0) L 27.5 % (42.0-52.0) L Mean Corpuscular Volume 97 FL (80-99) 96 FL (80-99) Mean Corpuscular Hemoglobin 32.2 PG (27.0-31.0) H 31.4 PG (27.0-31.0) H Mean Corpuscular Hemoglobin Concent 33.3 G/DL (32.0-36.0) 32.6 G/DL (32.0-36.0) Red Cell Distribution Width 16.6 % (11.6-14.8) H 16.0 % (11.6-14.8) H Platelet Count 258 K/UL (150-450) 234 K/UL (150-450) Mean Platelet Volume 6.8 FL (6.5-10.1) 7.9 FL (6.5-10.1) Neutrophils (%) (Auto) % (45.0-75.0) 76.8 % (45.0-75.0) H Lymphocytes (%) (Auto) % (20.0-45.0) 10.3 % (20.0-45.0) L Monocytes (%) (Auto) % (1.0-10.0) 11.8 % (1.0-10.0) H Eosinophils (%) (Auto) % (0.0-3.0) 0.3 % (0.0-3.0) Basophils (%) (Auto) % (0.0-2.0) 0.8 % (0.0-2.0) Differential Total Cells Counted 100 Neutrophils % (Manual) 82 % (45-75) H Lymphocytes % (Manual) 8 % (20-45) L Monocytes % (Manual) 9 % (1-10) Eosinophils % (Manual) 1 % (0-3) Basophils % (Manual) 0 % (0-2) Band Neutrophils 0 % (0-8) Platelet Estimate Adequate Platelet Morphology Normal Polychromasia 1+ Anisocytosis 1+ Macrocytosis 1+ Sodium Level 142 MMOL/L (136-145) Potassium Level 4.4 MMOL/L (3.5-5.1) Chloride Level 107 MMOL/L (98-107) Carbon Dioxide Level 22 MMOL/L (21-32) Blood Urea Nitrogen 59 mg/dL (7-18) H Creatinine 3.6 MG/DL (0.55-1.30) H Estimat Glomerular Filtration Rate 20.2 mL/min (>60) Glucose Level 115 MG/DL (74-106) H Calcium Level 8.2 MG/DL (8.5-10.1) L Current Medications Medications (Trade) Dose Ordered Sig/Nury Route PRN Reason Start Time Stop Time Status Last Admin Dose Admin Acetaminophen (Tylenol) 325 mg Q6H PRN RECTAL Temp >100.5 08/08/19 21:45 09/07/19 21:44 Acetaminophen (Tylenol) 650 mg Q4H PRN GT Mild Pain (Pain Scale 1-3) 08/08/19 10:45 09/07/19 10:44 08/22/19 15:04 Acetaminophen (Tylenol) 650 mg Q4H PRN GT Temp >100.5 08/08/19 10:45 09/07/19 10:44 08/24/19 23:54 Amantadine HCl (Symmetrel) 100 mg DAILY GT 08/09/19 09:00 09/08/19 08:59 08/25/19 09:13 Ascorbic Acid (Vitamin C) 250 mg DAILY GT 08/09/19 09:00 09/08/19 08:59 08/25/19 09:12 Dextrose/Sodium Chloride 1,000 ml @ 25 mls/hr Q24H IV 08/24/19 13:00 09/22/19 12:59 08/24/19 12:56 Doxazosin Mesylate (Cardura) 2 mg QHS GT 08/08/19 21:00 09/07/19 20:59 08/24/19 20:52 Folic Acid (Folate) 1 mg DAILY GT 08/08/19 14:30 09/07/19 14:29 08/25/19 09:13 Heparin Sodium (Porcine) (Heparin 5000 units/ml) 5,000 units EVERY 12 HOURS SUBQ 08/08/19 21:00 09/22/19 20:59 08/23/19 08:48 Hydralazine HCl (Apresoline) 10 mg Q6H PRN IV SBP> 160 08/08/19 21:45 11/06/19 21:44 Lisinopril (PriniviL) 20 mg Q12HR GT 08/08/19 21:00 09/07/19 20:59 08/25/19 09:13 Metoprolol Tartrate (Lopressor) 25 mg Q12HR GT 08/09/19 09:00 11/07/19 08:59 08/25/19 09:13 Multivitamins (Multivitamins) 1 tab DAILY GT 08/09/19 09:00 09/08/19 08:59 08/25/19 09:13 Pantoprazole (Protonix) 40 mg EVERY 12 HOURS IVP 08/09/19 23:00 09/08/19 22:59 08/25/19 09:12 Jude Ochoa MD Aug 25, 2019 10:33"
--- NOTE | 2019-08-25 11:43 | NUR ---
*-* INSURANCE *-* UPDATED CLINICALS AND REVIEWS HAVE BEEN FAXED TO: [facility]# [id number] COCOM:NICHOLAS [phone] P: [phone] F: [phone] AFTER HOURS # [phone]
--- NOTE | 2019-08-25 11:46 | NUR ---
CASE MANAGEMENT: REVIEW 08/25/2019 SI;IRON DEFICIENCY ANEMIA. PNA. VS: T 98.2 HR 135 RR 22 B/P 152/93 SATS 97% ON MECH VENT FIO2 35 LABS: BUN 59 CR 3.6 GLU 115 CA 8.2 IS:DEXTROSE IV @ 25 ML/HR LISINOPRIL GT Q12H LOPRESSOR GT Q12H CARDURA GT QHS SDU PLAN OF CARE: Full ventilator support with trach care. Transfuse 1 unit of packed red blood cells.
[2019-08-25] MEDS: D5NS 1,000 ML IV SCH (12:59)
--- NOTE | 2019-08-25 13:02 | Nephrology Progress Note ---
Assessment/Plan Plan LEAH - Multifactorial. Monitor labs. Creatinine 3.6. Nonoliguric ARF. Subjective Subjective Obtunded Objective Objective Last 24 Hour Vital Signs Date Time Temp Pulse Resp B/P (MAP) Pulse Ox O2 Delivery O2 Flow Rate FiO2 08/25/19 12:00 98.2 101 22 152/77 (102) 100 08/25/19 12:00 Mechanical Ventilator 08/25/19 12:00 70 08/25/19 11:47 96 08/25/19 11:09 98 40 35 08/25/19 09:13 135 152/93 08/25/19 09:13 152/93 08/25/19 08:00 98.2 135 22 152/93 (112) 97 08/25/19 08:00 Mechanical Ventilator 08/25/19 07:48 91 08/25/19 07:14 86 22 35 08/25/19 06:51 70 08/25/19 04:01 98.5 135 24 130/79 (96) 100 08/25/19 04:00 Mechanical Ventilator 08/25/19 04:00 35 08/25/19 04:00 96 08/25/19 04:00 97.5 135 26 98/68 (78) 100 08/25/19 03:12 98 28 35 08/25/19 00:24 98.6 08/25/19 00:00 35 08/25/19 00:00 98.6 107 30 137/80 (99) 100 08/25/19 00:00 112 08/25/19 00:00 Mechanical Ventilator 08/24/19 23:06 104 34 35 08/24/19 20:51 107 143/81 08/24/19 20:51 143/81 08/24/19 20:00 99.1 107 37 143/81 (101) 100 08/24/19 20:00 116 08/24/19 20:00 Mechanical Ventilator 08/24/19 20:00 35 08/24/19 19:01 117 38 35 08/24/19 16:00 102 08/24/19 16:00 35 08/24/19 16:00 Mechanical Ventilator 08/24/19 16:00 98.2 104 35 122/68 (86) 100 08/24/19 14:43 110 32 35 Intake and Output 08/24/19 08/25/19 19:00 07:00 Intake Total 730 ml 675 ml Output Total 250 ml 300 ml Balance 480 ml 375 ml Free Water 100 ml IV Total 550 ml 175 ml Tube Feeding 80 ml Blood Product 500 ml Output Urine Total 250 ml 300 ml # Voids 1 Laboratory Tests 08/24/19 19:05: White Blood Count 12.0H, Red Blood Count 2.23L, Hemoglobin 7.2L, Hematocrit 21.6L, Mean Corpuscular Volume 97, Mean Corpuscular Hemoglobin 32.2H, Mean Corpuscular Hemoglobin Concent 33.3, Red Cell Distribution Width 16.6H, Platelet Count 258, Mean Platelet Volume 6.8, Neutrophils (%) (Auto) , Lymphocytes (%) (Auto) , Monocytes (%) (Auto) , Eosinophils (%) (Auto) , Basophils (%) (Auto) , Differential Total Cells Counted 100, Neutrophils % ( Manual) 82H, Lymphocytes % (Manual) 8L, Monocytes % (Manual) 9, Eosinophils % ( Manual) 1, Basophils % (Manual) 0, Band Neutrophils 0, Platelet Estimate Adequate, Platelet Morphology Normal, Polychromasia 1+, Anisocytosis 1+, Macrocytosis 1+ 08/25/19 04:35: White Blood Count 10.4, Red Blood Count 2.86L, Hemoglobin 9.0L, Hematocrit 27.5L , Mean Corpuscular Volume 96, Mean Corpuscular Hemoglobin 31.4H, Mean Corpuscular Hemoglobin Concent 32.6, Red Cell Distribution Width 16.0H, Platelet Count 234, Mean Platelet Volume 7.9, Neutrophils (%) (Auto) 76.8H, Lymphocytes (%) (Auto) 10.3L, Monocytes (%) (Auto) 11.8H, Eosinophils (%) (Auto ) 0.3, Basophils (%) (Auto) 0.8, Sodium Level 142, Potassium Level 4.4, Chloride Level 107, Carbon Dioxide Level 22, Blood Urea Nitrogen 59H, Creatinine 3.6H, Estimat Glomerular Filtration Rate 20.2, Glucose Level 115H, Calcium Level 8.2L Height (Feet): 5 Height (Inches): 10.00 Weight (Pounds): 248 Objective On Vent. Cv RR Lungs B Ronchi Abd SNT. BS + E No CCE Ashwin Young MD Aug 25, 2019 13:02
--- NOTE | 2019-08-25 13:29 | Pulmonology Progress Note ---
Subjective ROS Limited/Unobtainable: Yes Constitutional: Denies: fever Allergies: Coded Allergies: No Known Allergies (Unverified , 08/07/19) Subjective remains ill had GT sinus tachy persists poor renal function noted vitals noted Objective Last 24 Hour Vital Signs Date Time Temp Pulse Resp B/P (MAP) Pulse Ox O2 Delivery O2 Flow Rate FiO2 08/25/19 12:00 98.2 101 22 152/77 (102) 100 08/25/19 12:00 Mechanical Ventilator 08/25/19 12:00 70 08/25/19 11:47 96 08/25/19 11:09 98 40 35 08/25/19 09:13 135 152/93 08/25/19 09:13 152/93 08/25/19 08:00 98.2 135 22 152/93 (112) 97 08/25/19 08:00 Mechanical Ventilator 08/25/19 07:48 91 08/25/19 07:14 86 22 35 08/25/19 06:51 70 08/25/19 04:01 98.5 135 24 130/79 (96) 100 08/25/19 04:00 Mechanical Ventilator 08/25/19 04:00 35 08/25/19 04:00 96 08/25/19 04:00 97.5 135 26 98/68 (78) 100 08/25/19 03:12 98 28 35 08/25/19 00:24 98.6 08/25/19 00:00 35 08/25/19 00:00 98.6 107 30 137/80 (99) 100 08/25/19 00:00 112 08/25/19 00:00 Mechanical Ventilator 08/24/19 23:06 104 34 35 08/24/19 20:51 107 143/81 08/24/19 20:51 143/81 08/24/19 20:00 99.1 107 37 143/81 (101) 100 08/24/19 20:00 116 08/24/19 20:00 Mechanical Ventilator 08/24/19 20:00 35 08/24/19 19:01 117 38 35 08/24/19 16:00 102 08/24/19 16:00 35 08/24/19 16:00 Mechanical Ventilator 08/24/19 16:00 98.2 104 35 122/68 (86) 100 08/24/19 14:43 110 32 35 Intake and Output 08/24/19 08/25/19 19:00 07:00 Intake Total 730 ml 675 ml Output Total 250 ml 300 ml Balance 480 ml 375 ml Free Water 100 ml IV Total 550 ml 175 ml Tube Feeding 80 ml Blood Product 500 ml Output Urine Total 250 ml 300 ml # Voids 1 Objective WDWN trach reduced breath sounds bilaterally without rhonchi or wheeze [id number] tachy without MRG NABS nontender no CCE reduced LOC Laboratory Tests 08/24/19 19:05: White Blood Count 12.0H, Red Blood Count 2.23L, Hemoglobin 7.2L, Hematocrit 21.6L, Mean Corpuscular Volume 97, Mean Corpuscular Hemoglobin 32.2H, Mean Corpuscular Hemoglobin Concent 33.3, Red Cell Distribution Width 16.6H, Platelet Count 258, Mean Platelet Volume 6.8, Neutrophils (%) (Auto) , Lymphocytes (%) (Auto) , Monocytes (%) (Auto) , Eosinophils (%) (Auto) , Basophils (%) (Auto) , Differential Total Cells Counted 100, Neutrophils % ( Manual) 82H, Lymphocytes % (Manual) 8L, Monocytes % (Manual) 9, Eosinophils % ( Manual) 1, Basophils % (Manual) 0, Band Neutrophils 0, Platelet Estimate Adequate, Platelet Morphology Normal, Polychromasia 1+, Anisocytosis 1+, Macrocytosis 1+ 08/25/19 04:35: White Blood Count 10.4, Red Blood Count 2.86L, Hemoglobin 9.0L, Hematocrit 27.5L , Mean Corpuscular Volume 96, Mean Corpuscular Hemoglobin 31.4H, Mean Corpuscular Hemoglobin Concent 32.6, Red Cell Distribution Width 16.0H, Platelet Count 234, Mean Platelet Volume 7.9, Neutrophils (%) (Auto) 76.8H, Lymphocytes (%) (Auto) 10.3L, Monocytes (%) (Auto) 11.8H, Eosinophils (%) (Auto ) 0.3, Basophils (%) (Auto) 0.8, Sodium Level 142, Potassium Level 4.4, Chloride Level 107, Carbon Dioxide Level 22, Blood Urea Nitrogen 59H, Creatinine 3.6H, Estimat Glomerular Filtration Rate 20.2, Glucose Level 115H, Calcium Level 8.2L Current Medications Medications (Trade) Dose Ordered Sig/Nury Route PRN Reason Start Time Stop Time Status Last Admin Dose Admin Acetaminophen (Tylenol) 325 mg Q6H PRN RECTAL Temp >100.5 08/08/19 21:45 09/07/19 21:44 Acetaminophen (Tylenol) 650 mg Q4H PRN GT Mild Pain (Pain Scale 1-3) 08/08/19 10:45 09/07/19 10:44 08/22/19 15:04 Acetaminophen (Tylenol) 650 mg Q4H PRN GT Temp >100.5 08/08/19 10:45 09/07/19 10:44 08/24/19 23:54 Amantadine HCl (Symmetrel) 100 mg DAILY GT 08/09/19 09:00 09/08/19 08:59 08/25/19 09:13 Ascorbic Acid (Vitamin C) 250 mg DAILY GT 08/09/19 09:00 09/08/19 08:59 08/25/19 09:12 Dextrose/Sodium Chloride 1,000 ml @ 25 mls/hr Q24H IV 08/24/19 13:00 09/22/19 12:59 08/25/19 12:59 Doxazosin Mesylate (Cardura) 2 mg QHS GT 08/08/19 21:00 09/07/19 20:59 08/24/19 20:52 Folic Acid (Folate) 1 mg DAILY GT 08/08/19 14:30 09/07/19 14:29 08/25/19 09:13 Heparin Sodium (Porcine) (Heparin 5000 units/ml) 5,000 units EVERY 12 HOURS SUBQ 08/08/19 21:00 09/22/19 20:59 08/23/19 08:48 Hydralazine HCl (Apresoline) 10 mg Q6H PRN IV SBP> 160 08/08/19 21:45 11/06/19 21:44 Lisinopril (PriniviL) 20 mg Q12HR GT 08/08/19 21:00 09/07/19 20:59 08/25/19 09:13 Metoprolol Tartrate (Lopressor) 25 mg Q12HR GT 08/09/19 09:00 11/07/19 08:59 08/25/19 09:13 Multivitamins (Multivitamins) 1 tab DAILY GT 08/09/19 09:00 09/08/19 08:59 08/25/19 09:13 Pantoprazole (Protonix) 40 mg EVERY 12 HOURS IVP 08/09/19 23:00 09/08/19 22:59 08/25/19 09:12 Assessment/Plan Assessment/Plan anemia possible GIB sinus tachycardia respiratory failure trach chronic encephalopathy GT site infection low K fevers better severe protein calorie malnutrition hypotension PLAN dc planning on hold pending further stabilization cards input vent support feeds per gi - GT care wound care monitor renal to see ID follow up dc planning once improved still too ill to transfere impression, plan, and exam edited and reviewed in detail care discussed with Isaiah Villatoro MD Aug 25, 2019 13:29
--- NOTE | 2019-08-25 14:00 | NUR ---
NURSE NOTES: Bedbath provided.
--- NOTE | 2019-08-25 16:16 | NUR ---
DISCHARGE PLANNING: NOTE CLINICALS FAXED TO [facility] IN [facility] DC PT ACCEPTED TO ROOM 221 @ [facility] SHOULD A DC OCCUR WILL F/U 08/25 Addendum: 08/25/19 at 1621 by Jodi Madden CM [facility] AUTH# [id number] Addendum: 08/26/19 at 1139 by Jodi Madden CM PER MD>> dc planning once improved still too ill to transfer- still unstable DC PLANNING ON HOLD
--- NOTE | 2019-08-25 19:23 | Surgery Progress Note ---
Surgery Progress Note Subjective Additional Comments h/h trending down given 1 unit transfuse prn no active bleeding noted currently dressings okay resume tf Objective Last 24 Hour Vital Signs Date Time Temp Pulse Resp B/P (MAP) Pulse Ox O2 Delivery O2 Flow Rate FiO2 08/25/19 19:01 113 42 35 08/25/19 16:00 Mechanical Ventilator 08/25/19 16:00 98.4 111 22 155/91 (112) 100 08/25/19 16:00 70 08/25/19 15:20 103 08/25/19 15:10 106 37 35 08/25/19 12:00 98.2 101 22 152/77 (102) 100 08/25/19 12:00 Mechanical Ventilator 08/25/19 12:00 70 08/25/19 11:47 96 08/25/19 11:09 98 40 35 08/25/19 09:13 135 152/93 08/25/19 09:13 152/93 08/25/19 08:00 98.2 135 22 152/93 (112) 97 08/25/19 08:00 Mechanical Ventilator 08/25/19 07:48 91 08/25/19 07:14 86 22 35 08/25/19 06:51 70 08/25/19 04:01 98.5 135 24 130/79 (96) 100 08/25/19 04:00 Mechanical Ventilator 08/25/19 04:00 35 08/25/19 04:00 96 08/25/19 04:00 97.5 135 26 98/68 (78) 100 08/25/19 03:12 98 28 35 08/25/19 00:24 98.6 08/25/19 00:00 35 08/25/19 00:00 98.6 107 30 137/80 (99) 100 08/25/19 00:00 112 08/25/19 00:00 Mechanical Ventilator 08/24/19 23:06 104 34 35 08/24/19 20:51 107 143/81 08/24/19 20:51 143/81 08/24/19 20:00 99.1 107 37 143/81 (101) 100 08/24/19 20:00 116 08/24/19 20:00 Mechanical Ventilator 08/24/19 20:00 35 I&O Intake and Output 08/24/19 08/25/19 19:00 07:00 Intake Total 730 ml 700 ml Output Total 250 ml 300 ml Balance 480 ml 400 ml Free Water 100 ml IV Total 550 ml 200 ml Tube Feeding 80 ml Blood Product 500 ml Output Urine Total 250 ml 300 ml # Voids 1 Dressing: other Wound: other Drains: other Cardiovascular: RSR Respiratory: decreased breath sounds Abdomen: soft, non-tender, present bowel sounds Extremities: no tenderness, no cyanosis, other Laboratory Tests Test 08/25/19 04:35 White Blood Count 10.4 K/UL (4.8-10.8) Red Blood Count 2.86 M/UL (4.70-6.10) L Hemoglobin 9.0 G/DL (14.2-18.0) L Hematocrit 27.5 % (42.0-52.0) L Mean Corpuscular Volume 96 FL (80-99) Mean Corpuscular Hemoglobin 31.4 PG (27.0-31.0) H Mean Corpuscular Hemoglobin Concent 32.6 G/DL (32.0-36.0) Red Cell Distribution Width 16.0 % (11.6-14.8) H Platelet Count 234 K/UL (150-450) Mean Platelet Volume 7.9 FL (6.5-10.1) Neutrophils (%) (Auto) 76.8 % (45.0-75.0) H Lymphocytes (%) (Auto) 10.3 % (20.0-45.0) L Monocytes (%) (Auto) 11.8 % (1.0-10.0) H Eosinophils (%) (Auto) 0.3 % (0.0-3.0) Basophils (%) (Auto) 0.8 % (0.0-2.0) Sodium Level 142 MMOL/L (136-145) Potassium Level 4.4 MMOL/L (3.5-5.1) Chloride Level 107 MMOL/L (98-107) Carbon Dioxide Level 22 MMOL/L (21-32) Blood Urea Nitrogen 59 mg/dL (7-18) H Creatinine 3.6 MG/DL (0.55-1.30) H Estimat Glomerular Filtration Rate 20.2 mL/min (>60) Glucose Level 115 MG/DL (74-106) H Calcium Level 8.2 MG/DL (8.5-10.1) L Plan Problems: (1) Anemia Assessment & Plan: 08/22 acute brisk pulsatile active bleeding from the G-tube site. Significant for blood identified on the dressings and in the patient's bed therefore immediate hemostasis indicated and recommended. At the bedside patient was given pain medication morphine IV and the G-tube site incision was extended and postop bleeding identified from around the level of the deep subcutaneous tissue. 2 [id number] 0 silk sutures were placed and hemostasis was obtained. The skin incision was reapproximated using 0 silk interrupted sutures. Patient taught procedure well. Hemostasis noted. Labs ordered will monitor (2) Unstageable decubitus ulcer Assessment & Plan: Pt presented on admission with multiple Pressure Injuries. Pt has a Tracheostomy and no areas of skin concerns noted under tracheal collar. Unstageable Sacral Pressure Injury(L)9.5cm x (W)10cm. Base of wound is 75% mixed slough and eschar,25% carolynn, Edges adherent with surrounding purple and maroon indurated borders. No odor or exudate noted. DTPI L Heel (L)3.7cm x (W)4.5cm. Base of wound is maroon and indurated with surrounding non-Blanching erythema. Callused skin periwound. Reabsorbing DTPI Thomas L Foot (L)3.3cm x (W)2.5cm. Base of Pressure Injury is maroon but dry. No erythema or fluctuance periwound. DTPI Lateral L 1st metatarsal(L)1.5cm x (W)2cm. Base of wound is maroon and indurated.Callused skin periwound. DTPI Lateral R Heel (L)4.4cm x (W)6cm. Base of wound is indurated ,purple with surrounding maroon and fluctuant borders.Callusing periwound. DTPI R Hallux (L)1.8cm x (W)1.9cm. Base of wound is indurated and purple. Callusing periwound. DTPI Lateral R 1st metatarsal(L)2cm x (W)2.7cm. Base of wound is indurated and maroon. Callusing periwound. Tx.Plan: Cleanse Sacral wound with Saline. Apply TheraHoney. Apply Moisture Barrier Paste periwound. Cover with Optifoam drsg. Change every 3 days and prn. Apply Cavilon Skin Barrier to wounds L L Heel , L st metatarsal,Dorsal L Foot. Cover each Site with Optifoam drsg. Change every 7 days and prn. Apply Cavilon Skin Barrier to R Heel, R Hallux, R 1st metatarsal. Cover each site with Optifoam drsg. Change every 7 days and prn. APM/KHOA Mattress. Reposition at least every 2hours or as tolerated. Off-Load Heels with Pillows. (3) Leaking PEG tube Assessment & Plan: prior peg removed plan new placement soon will monitor site drainage noted packing placed Minimal drainage from prior G-tube site discussed with nursing about packing and dressings will continue current care plan plan for PEG tube once improved s/p peg 08/21 tf d/c plan Lung bases: Atelectasis at the lung bases. Liver: Unremarkable. No mass. Gallbladder and bile ducts: Unremarkable. No calcified stones. No ductal dilation. Pancreas: Unremarkable. No mass. No ductal dilation. Spleen: Unremarkable. No splenomegaly. Adrenals: Unremarkable. No mass. Kidneys and ureters: Nonobstructing stone in the lower pole of the right kidney. Stomach and bowel: Tract from a recent percutaneous gastrostomy tube which is healing in the subcutaneous fat. Surrounding inflammatory changes but no abscess. Severe colonic diverticulosis within the sigmoid colon with mural hypertrophy however no surrounding inflammatory changes to suggest acute diverticulitis. Underlying malignancy not excluded. No obstruction. Intraperitoneal space: Unremarkable. No free air. No significant fluid collection. Bones/joints: No acute fracture. No dislocation. Soft tissues: Fat stranding in the ventral abdomen. Vasculature: Unremarkable. No abdominal aortic aneurysm. Lymph nodes: Unremarkable. No enlarged lymph nodes. Tubes, lines and devices: Thakkar catheter within the bladder. IMPRESSION: 1. Severe colonic diverticulosis within the sigmoid colon with mural hypertrophy however no surrounding inflammatory changes to suggest acute diverticulitis. Underlying malignancy not excluded. 2. Tract from a recent percutaneous gastrostomy tube which is healing in the subcutaneous fat. Surrounding inflammatory changes but no abscess. (4) Person under investigation for COVID-19 Assessment & Plan: There is a tracheostomy. Calcified granuloma is seen in the right midlung. Granulomatous calcified nodes are seen in the left aortopulmonary window. No definite infiltrates, effusions, congestion. The heart size is upper limits normal. Impression: No definite acute abnormality Evidence of old granulomatous disease Homero Cummings Aug 25, 2019 19:23
--- NOTE | 2019-08-25 19:45 | NUR ---
HAND-OFF: Report given to Nicky Armendariz RN.
--- NOTE | 2019-08-25 20:00 | NUR ---
NURSE NOTES: Received patient and report from KEHINDE Elise. Observed pt lying in the bed, awake, non-verbal, no signs of pain noted, responsive to voice. SR noted, HR of 99. Afebrile. Trach to vent, Portex 8, AC 14, TV450, FiO2 35%, PEEP 5, sat at 99%. ABD binding intact, no bleeding noted. GT site no active bleeding, running Glucerna 1.2 at 35ml/hr. Residual 120ml feeding liquid, no blood noted. Stopped the feeding at this time. IV on Right Hand 20G, and Left AC 20G, running, D5 NS at 75ml/hr, ordered to stop fluid when GT feeding reach goal at 65ml/hr. HOB kept elevated at 30 degree. Bed in the lowest position and alarmed. Noted Right wrist restraint noted with no SEs noted. Side rails up x3. Call light within reach. Will continue to monitor.
[2019-08-25] MEDS: Doxazosin 4mg tab GT SCH (20:35)
--- NOTE | 2019-08-25 22:11 | General Progress Note ---
Assessment/Plan Assessment/Plan: Assessment - Arterial GT site bleeding - repaired - Anemia -acute and chronic - GT migration out of stomach - Mushroom cap in anterior abdominal wall (GT removed) - Abdominal wall induration and discharge, improved - anemia - OB (+) stools - due to ulcerative gastritis, no colonoscopy per DPOA - s/p Trach - Macrocytic indicies - normal B12 and folate Recommendations - PPI - transfuse - TF - off abx per ID - follow exam and labs - transfuse as needed - d/c PO Iron ----> IV Fe - laxative, PRN Subjective Allergies: Coded Allergies: No Known Allergies (Unverified , 08/07/19) Subjective Above noted patient seen this am d/w RN feeding orders given Objective Last 24 Hour Vital Signs Date Time Temp Pulse Resp B/P (MAP) Pulse Ox O2 Delivery O2 Flow Rate FiO2 08/25/19 20:37 155/92 08/25/19 20:36 99 155/92 08/25/19 19:01 113 42 35 08/25/19 16:00 Mechanical Ventilator 08/25/19 16:00 98.4 111 22 155/91 (112) 100 08/25/19 16:00 70 08/25/19 15:20 103 08/25/19 15:10 106 37 35 08/25/19 12:00 98.2 101 22 152/77 (102) 100 08/25/19 12:00 Mechanical Ventilator 08/25/19 12:00 70 08/25/19 11:47 96 08/25/19 11:09 98 40 35 08/25/19 09:13 135 152/93 08/25/19 09:13 152/93 08/25/19 08:00 98.2 135 22 152/93 (112) 97 08/25/19 08:00 Mechanical Ventilator 08/25/19 07:48 91 08/25/19 07:14 86 22 35 08/25/19 06:51 70 08/25/19 04:01 98.5 135 24 130/79 (96) 100 08/25/19 04:00 Mechanical Ventilator 08/25/19 04:00 35 08/25/19 04:00 96 08/25/19 04:00 97.5 135 26 98/68 (78) 100 08/25/19 03:12 98 28 35 08/25/19 00:24 98.6 6/26/20 00:00 35 08/25/19 00:00 98.6 107 30 137/80 (99) 100 08/25/19 00:00 112 08/25/19 00:00 Mechanical Ventilator 08/24/19 23:06 104 34 35 Intake and Output 08/24/19 08/25/19 19:00 07:00 Intake Total 730 ml 700 ml Output Total 250 ml 300 ml Balance 480 ml 400 ml Free Water 100 ml IV Total 550 ml 200 ml Tube Feeding 80 ml Blood Product 500 ml Output Urine Total 250 ml 300 ml # Voids 1 Laboratory Tests 08/25/19 04:35: White Blood Count 10.4, Red Blood Count 2.86L, Hemoglobin 9.0L, Hematocrit 27.5L , Mean Corpuscular Volume 96, Mean Corpuscular Hemoglobin 31.4H, Mean Corpuscular Hemoglobin Concent 32.6, Red Cell Distribution Width 16.0H, Platelet Count 234, Mean Platelet Volume 7.9, Neutrophils (%) (Auto) 76.8H, Lymphocytes (%) (Auto) 10.3L, Monocytes (%) (Auto) 11.8H, Eosinophils (%) (Auto ) 0.3, Basophils (%) (Auto) 0.8, Sodium Level 142, Potassium Level 4.4, Chloride Level 107, Carbon Dioxide Level 22, Blood Urea Nitrogen 59H, Creatinine 3.6H, Estimat Glomerular Filtration Rate 20.2, Glucose Level 115H, Calcium Level 8.2L Height (Feet): 5 Height (Inches): 10.00 Weight (Pounds): 248 Objective Obese AA Man NCAT (+) Trach coarse BS RR Abd obese, packed old GT site, induration smaller in size (+) GT at new site trace edema non interactive Rubia Hawk MD Aug 25, 2019 22:11
[2019-08-26] VITALS (10 sets, daily range): BP systolic 121–154; BP diastolic 7–86
--- NOTE | 2019-08-26 01:00 | NUR ---
NURSE NOTES: Pt's resting comfortably in bed. No feeding residual at this time. Resumed feeding at 15ml/hr. GT site also no active bleeding/ leakage at this time. Will continue to monitor.
[2019-08-26] MEDS ORDERED: HydrALAZINE 10mg Tab GT PRN (01:45)
--- NOTE | 2019-08-26 05:00 | NUR ---
NURSE NOTES: Pt's observed in bed, eyes closed. VS stable. Afebrile. No active bleeding noted. Will continue to monitor.
[2019-08-26 06:29] LABS: BASOPHILS % (AUTO) 0.8 % (0.0-2.0); EOSINOPHILS % (AUTO) 0.6 % (0.0-3.0); HEMATOCRIT 26.3 % (42.0-52.0); HEMOGLOBIN 8.4 G/DL (14.2-18.0); LYMPHOCYTES % (AUTO) 14.9 % (20.0-45.0); MEAN CORPUSCULAR VOLUME 98 FL (80-99); MONOCYTES % (AUTO) 11.2 % (1.0-10.0); NEUTROPHILS % (AUTO) 72.6 % (45.0-75.0); PLATELET COUNT 213 K/UL (150-450); RED BLOOD COUNT 2.68 M/UL (4.70-6.10); RED CELL DISTRIBUTION WIDTH 16.1 % (11.6-14.8); WHITE BLOOD COUNT 7.6 K/UL (4.8-10.8)
[2019-08-26 07:01] LABS: ANION GAP 11 mmol/L (5-15); BLOOD UREA NITROGEN 57 mg/dL (7-18); CALCIUM 8.3 MG/DL (8.5-10.1); CARBON DIOXIDE 24 MMOL/L (21-32); CHLORIDE 108 MMOL/L (98-107); CREATININE 2.3 MG/DL (0.55-1.30); PHOSPHORUS 3.8 MG/DL (2.5-4.9); SODIUM 143 MMOL/L (136-145)
--- NOTE | 2019-08-26 07:10 | General Progress Note ---
Assessment/Plan Assessment/Plan: Assessment/Plan Assessment/Plan: Assessment - GT migration out of stomach - Mushroom cap in anterior abdominal wall (GT removed) - Abdominal wall swelling, w/o abscess - Fever, tachy, WBC, CRP - suspect due to GT migration - anemia - OB (+) stools - Dark stools, but on PO Iron - s/p Trach Recommendations - PPI q 12 - NGT for meds and feeds - begin fees - broad spectrum abx - GT site topical abx - follow exam and labs - transfuse as needed - laxative - Nic need PEG replacement at later time, once abd wall infection improved - Will hold off on diagnostic EGD, since will need another EGD for PEG placement - will d/w next of Kin Subjective ROS Limited/Unobtainable: No Allergies: Coded Allergies: No Known Allergies (Unverified , 08/07/19) Objective Last 24 Hour Vital Signs Date Time Temp Pulse Resp B/P (MAP) Pulse Ox O2 Delivery O2 Flow Rate FiO2 08/26/19 04:00 70 08/26/19 04:00 89 08/26/19 04:00 Mechanical Ventilator 08/26/19 04:00 97.9 92 27 147/77 (100) 100 08/26/19 03:18 89 26 35 08/26/19 00:00 Mechanical Ventilator 08/26/19 00:00 98.4 92 27 135/77 (96) 99 08/26/19 00:00 70 08/25/19 22:50 92 36 35 08/25/19 20:37 155/92 08/25/19 20:36 99 155/92 08/25/19 20:00 70 08/25/19 20:00 99.7 99 22 155/92 (113) 100 08/25/19 20:00 99 08/25/19 20:00 Mechanical Ventilator 08/25/19 19:01 113 42 35 08/25/19 16:00 Mechanical Ventilator 08/25/19 16:00 98.4 111 22 155/91 (112) 100 08/25/19 16:00 70 08/25/19 15:20 103 08/25/19 15:10 106 37 35 08/25/19 12:00 98.2 101 22 152/77 (102) 100 08/25/19 12:00 Mechanical Ventilator 08/25/19 12:00 70 08/25/19 11:47 96 08/25/19 11:09 98 40 35 08/25/19 09:13 135 152/93 08/25/19 09:13 152/93 08/25/19 08:00 98.2 135 22 152/93 (112) 97 08/25/19 08:00 Mechanical Ventilator 08/25/19 07:48 91 08/25/19 07:14 86 22 35 Intake and Output 08/25/19 08/26/19 19:00 07:00 Intake Total 590 ml 400 ml Output Total 1200 ml 700 ml Balance -610 ml -300 ml IV Total 300 ml 275 ml Tube Feeding 290 ml 125 ml Output Urine Total 1200 ml 600 ml Stool Total 100 ml # Bowel Movements 1 Laboratory Tests 08/26/19 05:15: White Blood Count 7.6, Red Blood Count 2.68L, Hemoglobin 8.4L, Hematocrit 26.3L , Mean Corpuscular Volume 98, Mean Corpuscular Hemoglobin 31.3H, Mean Corpuscular Hemoglobin Concent 31.9L, Red Cell Distribution Width 16.1H, Platelet Count 213, Mean Platelet Volume 8.4, Neutrophils (%) (Auto) 72.6, Lymphocytes (%) (Auto) 14.9L, Monocytes (%) (Auto) 11.2H, Eosinophils (%) (Auto ) 0.6, Basophils (%) (Auto) 0.8, Sodium Level 143, Potassium Level 4.0, Chloride Level 108H, Carbon Dioxide Level 24, Anion Gap 11, Blood Urea Nitrogen 57H, Creatinine 2.3H, Estimat Glomerular Filtration Rate 33.8, Glucose Level 113H, Calcium Level 8.3L, Phosphorus Level 3.8 Height (Feet): 5 Height (Inches): 10.00 Weight (Pounds): 248 General Appearance: no apparent distress EENT: PERRL/EOMI Neck: supple Cardiovascular: normal rate Respiratory/Chest: decreased breath sounds Abdomen: normal bowel sounds, non tender, soft Extremities: non-tender Byron Gallagher MD Aug 26, 2019 07:10
--- NOTE | 2019-08-26 07:29 | NUR ---
HAND-OFF: Report given to KEHINDE Hughes.
--- NOTE | 2019-08-26 07:30 | NUR ---
NURSE NOTES: Received report from KEHINDE Armendariz. The patient is resting on the bed without acute distress or shortness of breath. The patient is trached and vented and communication made by facial expression and body movement. The patient is on following vent setting as ordered: Portex 8, AC 14, TV 450, FiO2 35%, PEEP 5 and oxygen saturation is 100%. The patient is 110-140s HR on the security monitor. Stat EKG taken and notified Dr. Fisher but no answer. Paged Dr. Fisher again and Dr. Hugo answered. Dr. Hugo ordered to administer routine Metoprolol as ordered and monitor the patient. New G tube site intact and patent and no active bleeding noted at this time as the patient has history of pulsating bleeding on the site. GT feeding of Glucerna 1.2 @15mL/hr running with goal of 65mL/hr due to high residual per KEHINDE Armendariz. Thakkar intact and patent and draining by gravity. Rectal tube in right place and draining dark brown color stool. Skin issue noted and dressing intact. The patient has R hand 20G and L AC 20G that is intact and patent and running D5NS @25mL/hr running per order. R wrist soft restraints on per order and circulation and skin is intact. Will follow up the lab and order. Will closely monitor the patient. Will continue plan of care.
[2019-08-26] MEDS ORDERED: Lisinopril 10mg tab ONE (08:30)
[2019-08-26] MEDS: Lisinopril 20mg tab GT SCH ×2 (08:39→21:00)
[2019-08-26] MEDS: Metoprolol Tartrate 50mg tab GT SCH ×2 (08:39→20:59)
[2019-08-26] MEDS: Heparin 5000 units/ml inj SUBQ SCH ×2 (08:40→20:59)
[2019-08-26] MEDS: Amantadine 100mg cap GT SCH (08:40)
[2019-08-26] MEDS: Ascorbic Acid 500mg tab GT SCH (08:40)
[2019-08-26] MEDS: Pantoprazole Inj IVP SCH ×2 (08:40→20:58)
[2019-08-26] MEDS: D5NS 1,000 ML IV SCH (08:41)
--- NOTE | 2019-08-26 09:08 | Surgery Progress Note ---
Surgery Progress Note Subjective Additional Comments no acute events labs noted exam stable no n/v/f/c no active bleeding tolerating tf Objective Last 24 Hour Vital Signs Date Time Temp Pulse Resp B/P (MAP) Pulse Ox O2 Delivery O2 Flow Rate FiO2 08/26/19 08:39 145 121/77 08/26/19 08:39 121/77 08/26/19 07:21 89 26 35 08/26/19 04:00 70 08/26/19 04:00 89 08/26/19 04:00 Mechanical Ventilator 08/26/19 04:00 97.9 92 27 147/77 (100) 100 08/26/19 03:18 89 26 35 08/26/19 00:00 Mechanical Ventilator 08/26/19 00:00 98.4 92 27 135/77 (96) 99 08/26/19 00:00 70 08/25/19 22:50 92 36 35 08/25/19 20:37 155/92 08/25/19 20:36 99 155/92 08/25/19 20:00 70 08/25/19 20:00 99.7 99 22 155/92 (113) 100 08/25/19 20:00 99 08/25/19 20:00 Mechanical Ventilator 08/25/19 19:01 113 42 35 08/25/19 16:00 Mechanical Ventilator 08/25/19 16:00 98.4 111 22 155/91 (112) 100 08/25/19 16:00 70 08/25/19 15:20 103 08/25/19 15:10 106 37 35 08/25/19 12:00 98.2 101 22 152/77 (102) 100 08/25/19 12:00 Mechanical Ventilator 08/25/19 12:00 70 08/25/19 11:47 96 08/25/19 11:09 98 40 35 08/25/19 09:13 135 152/93 08/25/19 09:13 152/93 I&O Intake and Output 08/25/19 08/26/19 19:00 07:00 Intake Total 590 ml 425 ml Output Total 1200 ml 700 ml Balance -610 ml -275 ml IV Total 300 ml 300 ml Tube Feeding 290 ml 125 ml Output Urine Total 1200 ml 600 ml Stool Total 100 ml # Bowel Movements 1 Dressing: other Wound: other Drains: other Cardiovascular: RSR Respiratory: decreased breath sounds Abdomen: soft, non-tender, present bowel sounds, non-distended Extremities: no tenderness, no cyanosis Laboratory Tests Test 08/26/19 05:15 White Blood Count 7.6 K/UL (4.8-10.8) Red Blood Count 2.68 M/UL (4.70-6.10) L Hemoglobin 8.4 G/DL (14.2-18.0) L Hematocrit 26.3 % (42.0-52.0) L Mean Corpuscular Volume 98 FL (80-99) Mean Corpuscular Hemoglobin 31.3 PG (27.0-31.0) H Mean Corpuscular Hemoglobin Concent 31.9 G/DL (32.0-36.0) L Red Cell Distribution Width 16.1 % (11.6-14.8) H Platelet Count 213 K/UL (150-450) Mean Platelet Volume 8.4 FL (6.5-10.1) Neutrophils (%) (Auto) 72.6 % (45.0-75.0) Lymphocytes (%) (Auto) 14.9 % (20.0-45.0) L Monocytes (%) (Auto) 11.2 % (1.0-10.0) H Eosinophils (%) (Auto) 0.6 % (0.0-3.0) Basophils (%) (Auto) 0.8 % (0.0-2.0) Sodium Level 143 MMOL/L (136-145) Potassium Level 4.0 MMOL/L (3.5-5.1) Chloride Level 108 MMOL/L (98-107) H Carbon Dioxide Level 24 MMOL/L (21-32) Anion Gap 11 mmol/L (5-15) Blood Urea Nitrogen 57 mg/dL (7-18) H Creatinine 2.3 MG/DL (0.55-1.30) H Estimat Glomerular Filtration Rate 33.8 mL/min (>60) Glucose Level 113 MG/DL (74-106) H Calcium Level 8.3 MG/DL (8.5-10.1) L Phosphorus Level 3.8 MG/DL (2.5-4.9) Plan Problems: (1) Anemia Assessment & Plan: 08/22 acute brisk pulsatile active bleeding from the G-tube site. Significant for blood identified on the dressings and in the patient's bed therefore immediate hemostasis indicated and recommended. At the bedside patient was given pain medication morphine IV and the G-tube site incision was extended and postop bleeding identified from around the level of the deep subcutaneous tissue. 2 [id number] 0 silk sutures were placed and hemostasis was obtained. The skin incision was reapproximated using 0 silk interrupted sutures. Patient taught procedure well. Hemostasis noted. Labs ordered will monitor (2) Unstageable decubitus ulcer Assessment & Plan: Pt presented on admission with multiple Pressure Injuries. Pt has a Tracheostomy and no areas of skin concerns noted under tracheal collar. Unstageable Sacral Pressure Injury(L)9.5cm x (W)10cm. Base of wound is 75% mixed slough and eschar,25% carolynn, Edges adherent with surrounding purple and maroon indurated borders. No odor or exudate noted. DTPI L Heel (L)3.7cm x (W)4.5cm. Base of wound is maroon and indurated with surrounding non-Blanching erythema. Callused skin periwound. Reabsorbing DTPI [place] L Foot (L)3.3cm x (W)2.5cm. Base of Pressure Injury is maroon but dry. No erythema or fluctuance periwound. DTPI Lateral L 1st metatarsal(L)1.5cm x (W)2cm. Base of wound is maroon and indurated.Callused skin periwound. DTPI Lateral R Heel (L)4.4cm x (W)6cm. Base of wound is indurated ,purple with surrounding maroon and fluctuant borders.Callusing periwound. DTPI R Hallux (L)1.8cm x (W)1.9cm. Base of wound is indurated and purple. Callusing periwound. DTPI Lateral R 1st metatarsal(L)2cm x (W)2.7cm. Base of wound is indurated and maroon. Callusing periwound. Tx.Plan: Cleanse Sacral wound with Saline. Apply TheraHoney. Apply Moisture Barrier Paste periwound. Cover with Optifoam drsg. Change every 3 days and prn. Apply Cavilon Skin Barrier to wounds L L Heel , L st metatarsal,Dorsal L Foot. Cover each Site with Optifoam drsg. Change every 7 days and prn. Apply Cavilon Skin Barrier to R Heel, R Hallux, R 1st metatarsal. Cover each site with Optifoam drsg. Change every 7 days and prn. APM/KHOA Mattress. Reposition at least every 2hours or as tolerated. Off-Load Heels with Pillows. (3) Leaking PEG tube Assessment & Plan: prior peg removed plan new placement soon will monitor site drainage noted packing placed Minimal drainage from prior G-tube site discussed with nursing about packing and dressings will continue current care plan plan for PEG tube once improved s/p peg 08/21 tf d/c plan Lung bases: Atelectasis at the lung bases. Liver: Unremarkable. No mass. Gallbladder and bile ducts: Unremarkable. No calcified stones. No ductal dilation. Pancreas: Unremarkable. No mass. No ductal dilation. Spleen: Unremarkable. No splenomegaly. Adrenals: Unremarkable. No mass. Kidneys and ureters: Nonobstructing stone in the lower pole of the right kidney. Stomach and bowel: Tract from a recent percutaneous gastrostomy tube which is healing in the subcutaneous fat. Surrounding inflammatory changes but no abscess. Severe colonic diverticulosis within the sigmoid colon with mural hypertrophy however no surrounding inflammatory changes to suggest acute diverticulitis. Underlying malignancy not excluded. No obstruction. Intraperitoneal space: Unremarkable. No free air. No significant fluid collection. Bones/joints: No acute fracture. No dislocation. Soft tissues: Fat stranding in the ventral abdomen. Vasculature: Unremarkable. No abdominal aortic aneurysm. Lymph nodes: Unremarkable. No enlarged lymph nodes. Tubes, lines and devices: Thakkar catheter within the bladder. IMPRESSION: 1. Severe colonic diverticulosis within the sigmoid colon with mural hypertrophy however no surrounding inflammatory changes to suggest acute diverticulitis. Underlying malignancy not excluded. 2. Tract from a recent percutaneous gastrostomy tube which is healing in the subcutaneous fat. Surrounding inflammatory changes but no abscess. (4) Person under investigation for COVID-19 Assessment & Plan: There is a tracheostomy. Calcified granuloma is seen in the right midlung. Granulomatous calcified nodes are seen in the left aortopulmonary window. No definite infiltrates, effusions, congestion. The heart size is upper limits normal. Impression: No definite acute abnormality Evidence of old granulomatous disease Homero Cummings Aug 26, 2019 09:08
--- NOTE | 2019-08-26 09:25 | Pulmonology Progress Note ---
Subjective ROS Limited/Unobtainable: Yes Constitutional: Denies: fever Allergies: Coded Allergies: No Known Allergies (Unverified , 08/07/19) Subjective remains ill had GT sinus tachy persists 110-120 poor renal function noted vitals noted Objective Last 24 Hour Vital Signs Date Time Temp Pulse Resp B/P (MAP) Pulse Ox O2 Delivery O2 Flow Rate FiO2 08/26/19 08:39 145 121/77 08/26/19 08:39 121/77 08/26/19 07:21 89 26 35 08/26/19 04:00 70 08/26/19 04:00 89 08/26/19 04:00 Mechanical Ventilator 08/26/19 04:00 97.9 92 27 147/77 (100) 100 08/26/19 03:18 89 26 35 08/26/19 00:00 Mechanical Ventilator 08/26/19 00:00 98.4 92 27 135/77 (96) 99 08/26/19 00:00 70 08/25/19 22:50 92 36 35 08/25/19 20:37 155/92 08/25/19 20:36 99 155/92 08/25/19 20:00 70 08/25/19 20:00 99.7 99 22 155/92 (113) 100 08/25/19 20:00 99 08/25/19 20:00 Mechanical Ventilator 08/25/19 19:01 113 42 35 08/25/19 16:00 Mechanical Ventilator 08/25/19 16:00 98.4 111 22 155/91 (112) 100 08/25/19 16:00 70 08/25/19 15:20 103 08/25/19 15:10 106 37 35 08/25/19 12:00 98.2 101 22 152/77 (102) 100 08/25/19 12:00 Mechanical Ventilator 08/25/19 12:00 70 08/25/19 11:47 96 08/25/19 11:09 98 40 35 Intake and Output 08/25/19 08/26/19 19:00 07:00 Intake Total 590 ml 425 ml Output Total 1200 ml 700 ml Balance -610 ml -275 ml IV Total 300 ml 300 ml Tube Feeding 290 ml 125 ml Output Urine Total 1200 ml 600 ml Stool Total 100 ml # Bowel Movements 1 Objective WDWN trach reduced breath sounds bilaterally without rhonchi or wheeze [id number] tachy without MRG NABS nontender no CCE reduced LOC Laboratory Tests 08/26/19 05:15: White Blood Count 7.6, Red Blood Count 2.68L, Hemoglobin 8.4L, Hematocrit 26.3L , Mean Corpuscular Volume 98, Mean Corpuscular Hemoglobin 31.3H, Mean Corpuscular Hemoglobin Concent 31.9L, Red Cell Distribution Width 16.1H, Platelet Count 213, Mean Platelet Volume 8.4, Neutrophils (%) (Auto) 72.6, Lymphocytes (%) (Auto) 14.9L, Monocytes (%) (Auto) 11.2H, Eosinophils (%) (Auto ) 0.6, Basophils (%) (Auto) 0.8, Sodium Level 143, Potassium Level 4.0, Chloride Level 108H, Carbon Dioxide Level 24, Anion Gap 11, Blood Urea Nitrogen 57H, Creatinine 2.3H, Estimat Glomerular Filtration Rate 33.8, Glucose Level 113H, Calcium Level 8.3L, Phosphorus Level 3.8 Current Medications Medications (Trade) Dose Ordered Sig/Nury Route PRN Reason Start Time Stop Time Status Last Admin Dose Admin Acetaminophen (Tylenol) 325 mg Q6H PRN RECTAL Temp >100.5 08/08/19 21:45 09/07/19 21:44 Acetaminophen (Tylenol) 650 mg Q4H PRN GT Mild Pain (Pain Scale 1-3) 08/08/19 10:45 09/07/19 10:44 08/22/19 15:04 Acetaminophen (Tylenol) 650 mg Q4H PRN GT Temp >100.5 08/08/19 10:45 09/07/19 10:44 08/24/19 23:54 Amantadine HCl (Symmetrel) 100 mg DAILY GT 08/09/19 09:00 09/08/19 08:59 08/26/19 08:40 Ascorbic Acid (Vitamin C) 250 mg DAILY GT 08/09/19 09:00 09/08/19 08:59 08/26/19 08:40 Dextrose/Sodium Chloride 1,000 ml @ 25 mls/hr Q24H IV 08/24/19 13:00 09/22/19 12:59 08/26/19 08:41 Folic Acid (Folate) 1 mg DAILY GT 08/08/19 14:30 09/07/19 14:29 08/26/19 08:38 Heparin Sodium (Porcine) (Heparin 5000 units/ml) 5,000 units EVERY 12 HOURS SUBQ 08/08/19 21:00 09/22/19 20:59 08/23/19 08:48 Hydralazine HCl (Apresoline) 10 mg Q6H PRN IV SBP> 160 08/08/19 21:45 11/06/19 21:44 Hydralazine HCl (Apresoline) 10 mg Q6HR PRN GT SBP above 160 08/26/19 01:45 11/24/19 01:44 Lisinopril (PriniviL) 20 mg Q12HR GT 08/08/19 21:00 09/07/19 20:59 08/26/19 08:39 Metoprolol Tartrate (Lopressor) 50 mg Q12HR GT 08/26/19 09:00 11/24/19 08:59 08/26/19 08:39 Multivitamins (Multivitamins) 1 tab DAILY GT 08/09/19 09:00 09/08/19 08:59 08/26/19 08:39 Pantoprazole (Protonix) 40 mg EVERY 12 HOURS IVP 08/09/19 23:00 09/08/19 22:59 08/26/19 08:40 Assessment/Plan Assessment/Plan anemia possible GIB sinus tachycardia respiratory failure trach chronic encephalopathy GT site infection low K fevers better severe protein calorie malnutrition hypotension PLAN dc planning on hold cards input- beta albaro increased vent support feeds per gi - GT care wound care monitor renal to see ID follow up dc planning once improved still too ill to transfer- still unstable impression, plan, and exam edited and reviewed in detail care discussed with Isaiah Villatoro MD Aug 26, 2019 09:25
--- NOTE | 2019-08-26 09:30 | NUR ---
NURSE NOTES: Morning medications administered as ordered. The patient's HR went down to 110s at this time. Will closely monitor the patient. Will continue plan of care.
--- NOTE | 2019-08-26 10:22 | Infectious Diseases Prog Note ---
"Assessment/Plan Assessment/Plan antibiotics : none A 1. pseudomonas | providencia pneumonia s/p rx COVID negative x 2 2. klebsiella | pseudomonas | VRE Gt site cellulitis 3. respiratory failure 4. leucocytosis resolved 5. s/p GT placement P 1. continue off antibiotics 2. will follow up cultures Subjective ROS Limited/Unobtainable: Yes Allergies: Coded Allergies: No Known Allergies (Unverified , 08/07/19) Objective Last 24 Hour Vital Signs Date Time Temp Pulse Resp B/P (MAP) Pulse Ox O2 Delivery O2 Flow Rate FiO2 08/26/19 08:39 145 121/77 08/26/19 08:39 121/77 08/26/19 07:21 89 26 35 08/26/19 04:00 70 08/26/19 04:00 89 08/26/19 04:00 Mechanical Ventilator 08/26/19 04:00 97.9 92 27 147/77 (100) 100 08/26/19 03:18 89 26 35 08/26/19 00:00 Mechanical Ventilator 08/26/19 00:00 98.4 92 27 135/77 (96) 99 08/26/19 00:00 70 08/25/19 22:50 92 36 35 08/25/19 20:37 155/92 08/25/19 20:36 99 155/92 08/25/19 20:00 70 08/25/19 20:00 99.7 99 22 155/92 (113) 100 08/25/19 20:00 99 08/25/19 20:00 Mechanical Ventilator 08/25/19 19:01 113 42 35 08/25/19 16:00 Mechanical Ventilator 08/25/19 16:00 98.4 111 22 155/91 (112) 100 08/25/19 16:00 70 08/25/19 15:20 103 08/25/19 15:10 106 37 35 08/25/19 12:00 98.2 101 22 152/77 (102) 100 08/25/19 12:00 Mechanical Ventilator 08/25/19 12:00 70 08/25/19 11:47 96 08/25/19 11:09 98 40 35 Height (Feet): 5 Height (Inches): 10.00 Weight (Pounds): 248 HEENT: status post trach Respiratory/Chest: lungs clear Cardiovascular: normal rate, regular rhythm, no gallop/murmur Abdomen: soft, non tender, other - GT Extremities: no edema Laboratory Tests Test 08/26/19 05:15 White Blood Count 7.6 K/UL (4.8-10.8) Red Blood Count 2.68 M/UL (4.70-6.10) L Hemoglobin 8.4 G/DL (14.2-18.0) L Hematocrit 26.3 % (42.0-52.0) L Mean Corpuscular Volume 98 FL (80-99) Mean Corpuscular Hemoglobin 31.3 PG (27.0-31.0) H Mean Corpuscular Hemoglobin Concent 31.9 G/DL (32.0-36.0) L Red Cell Distribution Width 16.1 % (11.6-14.8) H Platelet Count 213 K/UL (150-450) Mean Platelet Volume 8.4 FL (6.5-10.1) Neutrophils (%) (Auto) 72.6 % (45.0-75.0) Lymphocytes (%) (Auto) 14.9 % (20.0-45.0) L Monocytes (%) (Auto) 11.2 % (1.0-10.0) H Eosinophils (%) (Auto) 0.6 % (0.0-3.0) Basophils (%) (Auto) 0.8 % (0.0-2.0) Sodium Level 143 MMOL/L (136-145) Potassium Level 4.0 MMOL/L (3.5-5.1) Chloride Level 108 MMOL/L (98-107) H Carbon Dioxide Level 24 MMOL/L (21-32) Anion Gap 11 mmol/L (5-15) Blood Urea Nitrogen 57 mg/dL (7-18) H Creatinine 2.3 MG/DL (0.55-1.30) H Estimat Glomerular Filtration Rate 33.8 mL/min (>60) Glucose Level 113 MG/DL (74-106) H Calcium Level 8.3 MG/DL (8.5-10.1) L Phosphorus Level 3.8 MG/DL (2.5-4.9) Current Medications Medications (Trade) Dose Ordered Sig/Nury Route PRN Reason Start Time Stop Time Status Last Admin Dose Admin Acetaminophen (Tylenol) 325 mg Q6H PRN RECTAL Temp >100.5 08/08/19 21:45 09/07/19 21:44 Acetaminophen (Tylenol) 650 mg Q4H PRN GT Mild Pain (Pain Scale 1-3) 08/08/19 10:45 09/07/19 10:44 08/22/19 15:04 Acetaminophen (Tylenol) 650 mg Q4H PRN GT Temp >100.5 08/08/19 10:45 09/07/19 10:44 08/24/19 23:54 Amantadine HCl (Symmetrel) 100 mg DAILY GT 08/09/19 09:00 09/08/19 08:59 08/26/19 08:40 Ascorbic Acid (Vitamin C) 250 mg DAILY GT 08/09/19 09:00 09/08/19 08:59 08/26/19 08:40 Dextrose/Sodium Chloride 1,000 ml @ 25 mls/hr Q24H IV 08/24/19 13:00 09/22/19 12:59 08/26/19 08:41 Folic Acid (Folate) 1 mg DAILY GT 08/08/19 14:30 09/07/19 14:29 08/26/19 08:38 Heparin Sodium (Porcine) (Heparin 5000 units/ml) 5,000 units EVERY 12 HOURS SUBQ 08/08/19 21:00 09/22/19 20:59 08/23/19 08:48 Hydralazine HCl (Apresoline) 10 mg Q6H PRN IV SBP> 160 08/08/19 21:45 11/06/19 21:44 Hydralazine HCl (Apresoline) 10 mg Q6HR PRN GT SBP above 160 08/26/19 01:45 11/24/19 01:44 Lisinopril (PriniviL) 20 mg Q12HR GT 08/08/19 21:00 09/07/19 20:59 08/26/19 08:39 Metoprolol Tartrate (Lopressor) 50 mg Q12HR GT 08/26/19 09:00 11/24/19 08:59 08/26/19 08:39 Multivitamins (Multivitamins) 1 tab DAILY GT 08/09/19 09:00 09/08/19 08:59 08/26/19 08:39 Pantoprazole (Protonix) 40 mg EVERY 12 HOURS IVP 6/10/20 23:00 09/08/19 22:59 08/26/19 08:40 Jude Ochoa MD Aug 26, 2019 10:22"
--- NOTE | 2019-08-26 11:00 | Progress Note ---
DATE: 08/25/2019 CARDIOLOGY PROGRESS NOTE SUBJECTIVE: The patient is status post G-tube several days ago. He remains with sinus tachycardia, low-grade fevers and labile blood pressure parameters. PHYSICAL EXAMINATION: LUNGS: Bilateral breath sounds. Trach site clean. CARDIAC: Regular rhythm. Rapid rate. Normal S1, S2. ABDOMEN: Soft. EXTREMITIES: Trace dependent edema. LABORATORY DATA: Notable for white count 10, hemoglobin 9. Sodium 142, potassium 4.4, bicarb 27, BUN 59, creatinine 3.6. ASSESSMENT: 1. Sepsis. 2. Shock. 3. Acute renal failure. 4. Acute on chronic diastolic congestive heart failure. 5. Anemia. 6. Respiratory failure. 7. Severe protein-calorie malnutrition. 8. Third spacing with intravascular volume depletion. PLAN: Antimicrobials. Ventilator support. Monitor renal function. Cautiously hydrate. Avoid nephrotoxic drugs. Continue beta-albaro. Augustine Fisher M.D. DR: NAHUN/STEPHEN JOB#: [id number] CC:
--- NOTE | 2019-08-26 11:00 | NUR ---
NURSE NOTES: The patient seems comfortable without acute distress or shortness of breath. Still Afib with HR of 110-120s. No response from Dr. Fisher. Paged Dr. Hurt for further order. Will continue plan of care.
--- NOTE | 2019-08-26 11:33 | NUR ---
CASE MANAGEMENT: REVIEW 08/26/2019 SI;IRON DEFICIENCY ANEMIA. PNA. VS: T 98.9 HR 145 RR 20 B/P 121/77 SATS 100% ON MECH VENT FIO2 35 LABS: CL 108 BUN 57 CR 2.3 GLU 113 CA 8.3 IS:DEXTROSE IV @ 25 ML/HR LISINOPRIL GT Q12H LOPRESSOR GT Q12H CARDURA GT QHS SDU PLAN OF CARE: Full ventilator support with trach care. dc planning once improved PER MD>> still too ill to transfer- still unstable
--- NOTE | 2019-08-26 12:47 | Nephrology Progress Note ---
Assessment/Plan Plan LEAH - Multifactorial. Monitor labs. Creatinine 2.6. Nonoliguric ARF. Resolving. Subjective Subjective Obtunded Objective Objective Last 24 Hour Vital Signs Date Time Temp Pulse Resp B/P (MAP) Pulse Ox O2 Delivery O2 Flow Rate FiO2 08/26/19 10:58 101 31 35 08/26/19 08:39 145 121/77 08/26/19 08:39 121/77 08/26/19 08:00 98.9 145 20 121/7 (45) 100 08/26/19 08:00 35 08/26/19 08:00 135 08/26/19 07:21 89 26 35 08/26/19 04:00 70 08/26/19 04:00 89 08/26/19 04:00 Mechanical Ventilator 08/26/19 04:00 97.9 92 27 147/77 (100) 100 08/26/19 03:18 89 26 35 08/26/19 00:00 Mechanical Ventilator 08/26/19 00:00 98.4 92 27 135/77 (96) 99 08/26/19 00:00 70 08/25/19 22:50 92 36 35 08/25/19 20:37 155/92 08/25/19 20:36 99 155/92 08/25/19 20:00 70 08/25/19 20:00 99.7 99 22 155/92 (113) 100 08/25/19 20:00 99 08/25/19 20:00 Mechanical Ventilator 08/25/19 19:01 113 42 35 08/25/19 16:00 Mechanical Ventilator 08/25/19 16:00 98.4 111 22 155/91 (112) 100 08/25/19 16:00 70 08/25/19 15:20 103 08/25/19 15:10 106 37 35 Intake and Output 08/25/19 08/26/19 19:00 07:00 Intake Total 590 ml 425 ml Output Total 1200 ml 700 ml Balance -610 ml -275 ml IV Total 300 ml 300 ml Tube Feeding 290 ml 125 ml Output Urine Total 1200 ml 600 ml Stool Total 100 ml # Bowel Movements 1 Laboratory Tests 08/26/19 05:15: White Blood Count 7.6, Red Blood Count 2.68L, Hemoglobin 8.4L, Hematocrit 26.3L , Mean Corpuscular Volume 98, Mean Corpuscular Hemoglobin 31.3H, Mean Corpuscular Hemoglobin Concent 31.9L, Red Cell Distribution Width 16.1H, Platelet Count 213, Mean Platelet Volume 8.4, Neutrophils (%) (Auto) 72.6, Lymphocytes (%) (Auto) 14.9L, Monocytes (%) (Auto) 11.2H, Eosinophils (%) (Auto ) 0.6, Basophils (%) (Auto) 0.8, Sodium Level 143, Potassium Level 4.0, Chloride Level 108H, Carbon Dioxide Level 24, Anion Gap 11, Blood Urea Nitrogen 57H, Creatinine 2.3H, Estimat Glomerular Filtration Rate 33.8, Glucose Level 113H, Calcium Level 8.3L, Phosphorus Level 3.8 Height (Feet): 5 Height (Inches): 10.00 Weight (Pounds): 249 Objective On Vent. Cv RR Lungs B Timmychi Joanne SNT. BS + E No CCE Ashwin Young MD Aug 26, 2019 12:47
--- NOTE | 2019-08-26 13:40 | NUR ---
NURSE NOTES: Dr. Hurt ordered Cardizem 10mg IVP. Will administer as ordered under charge nurse's supervision. Will continue plan of care.
[2019-08-26] MEDS ORDERED: dilTIAZem HCl 50mg/10ml Inj IVP SCH (13:45)
--- NOTE | 2019-08-26 14:30 | NUR ---
NURSE NOTES: Paged Dr. Fisher again for a fib with RVR with heart rate of 130-140s even with one time of Cardizem 10mg IVP. Dr. Fisher ordered. Stat ABG. Will closely monitor the patient. Will continue plan of care.
[2019-08-26] MEDS ORDERED: dilTIAZem HCl 25mg/5ml Inj IVP ONE (15:00)
--- NOTE | 2019-08-26 15:00 | NUR ---
NURSE NOTES: Notified result of stat ABG. Dr. Fisher ordered Diltiazem 20mg IVP. Will administer as ordered. Will continue plan of care.
[2019-08-26] MEDS ORDERED: dilTIAZem HCl 25mg/5ml Inj IVP SCH (15:15)
--- NOTE | 2019-08-26 15:40 | NUR ---
NURSE NOTES: Cardizem 20mg IVP given by the primary nurse. HR dropped lowest of 90 and back to 100s. Will closely monitor the patient. Will continue plan of care.
[2019-08-26] MEDS ORDERED: D5NS 1000ml IV ONE ×2 (16:06→17:09)
[2019-08-26] MEDS ORDERED: NS 275ml ONE ×2 (16:06→17:09)
--- NOTE | 2019-08-26 16:30 | NUR ---
NURSE NOTES: The patient is stable without acute distress or shortness of breath. Tube feeding @15mL/hr due to high residual. Will closely monitor the patient. Will continue plan of care.
--- NOTE | 2019-08-26 16:50 | NUR ---
HAND-OFF: Report given to KEHINDE Howard. Endorsed plan of care.
--- NOTE | 2019-08-26 16:50 | NUR ---
NURSE NOTES: Received patient from Ellen BUSBY. Patient is awake, non-verbal, flat affect. Atrial Fibrillation with RVR on the heart monitor, HR 120-140. Receiving Oxygen via Portex 8, vent settings: AC 14, TV 450, FiO2 35%, PEEP 5. G-tube is intact and receiving Glucerna 1.2 at 15cc/hr. IV site is Left AC 20g receiving D5NS at 25cc/hr. Thakkar catheter is intact and draining. Thakkar catheter is patent and draining. Bed is locked, placed in lowest position, side rails up x3, bed alarm on, call light within reach, head of bed elevated.
--- NOTE | 2019-08-26 17:04 | NUR ---
NURSE NOTES: Left message to Dr. Fisher's office regarding patient's A. Fib with RVR, HR 120-140. Awaiting call back.
[2019-08-26] MEDS ORDERED: Tubing IV Blood Pump IV ONE (17:09)
--- NOTE | 2019-08-26 17:10 | NUR ---
NURSE NOTES: Patient seen and assessed by Dr. Fisher.
--- NOTE | 2019-08-26 18:11 | NUR ---
NURSE NOTES: Amiodarone 150mg/100ml bolus given at 1745. Prior to bolus patient's blood pressure was 147/102, Atrial Fibrillation, HR 120-140. After administration of Amiodarone 150mg/100ml bolus given, blood pressure read 140/88, Patient remains A. Fib, HR 96- Addendum: 08/26/19 at 1817 by Beba Middleton RN NURSE NOTES: Amiodarone 150mg/100ml bolus given at 1745. Prior to bolus patient's blood pressure was 147/102, Atrial Fibrillation, HR 120-140. After administration of Amiodarone 150mg/100ml bolus given, blood pressure read 140/88, Patient remains A. Fib, HR 96-104.
[2019-08-26] MEDS ORDERED: Amiodarone 900 MG in D5W 500ml 482 ML IV SCH (18:30)
--- NOTE | 2019-08-26 19:13 | NUR ---
HAND-OFF: Report given to Aggie Beckwith RN/Alva BUSBY.
--- NOTE | 2019-08-26 21:25 | NUR ---
NURSE NOTES: Received pt's report from KEHINDE Howard. Pt is on bedrest. No s/s of respiratory distress noted. Pt is on vent following setting; AC 14, Vt 450, FiO2 35%, PEEP 5. IV site intact, clean and patent, Amiodarone running noted. Thakkar intact, clean and patent noted. Call-light within reach. Bed is low position and locked. Will continue to monitor with plan of care.
[2019-08-27] VITALS (11 sets, daily range): BP systolic 126–162; BP diastolic 70–103
--- NOTE | 2019-08-27 00:25 | NUR ---
NURSE NOTES: changed the rate to 0.5mg/min. pt is stable condition, pt states no pain at this moment. BP 130/60 HR 97. call light within reach.
--- NOTE | 2019-08-27 03:45 | Progress Note ---
DATE: 08/26/2019 CARDIOLOGY PROGRESS NOTE SUBJECTIVE: The patient has developed rapid atrial fibrillation. Doses of IV diltiazem and continued beta-albaro have been ineffective at rate control. The patient's ABG was reviewed. Results, 7.48, 30, 100. PHYSICAL EXAMINATION: LUNGS: Diminished breath sounds. CARDIAC: Irregularly irregular rhythm. Normal S1, S2. ABDOMEN: Soft. EXTREMITIES: 1+ edema. LABORATORY DATA: Potassium 4.0, BUN 57, creatinine 2.3. White count 7.6, hemoglobin 8.4. IMPRESSION: 1. Paroxysmal atrial fibrillation with rapid ventricular response. 2. Respiratory failure. 3. Recovering renal failure. 4. Tracheostomy. 5. Sepsis with recovered shock. PLAN: 1. IV amiodarone. 2. for suppression of atrial arrhythmias. 3. Titrate and re-dose beta-albaro. 4. Holding diuretics. 5. Monitor volume status and cardiorenal function. Augustine Fisher M.D. DR: MYRON JOB#: [id number] CC:
--- NOTE | 2019-08-27 07:33 | NUR ---
HAND-OFF: Report given to KEHINDE Sanchez. Pt is stable at this moment. Endorsed plan of care.
--- NOTE | 2019-08-27 07:42 | NUR ---
NURSE NOTES: Received report from KEHINDE Aggarwal. Patient in bed resting, no active s/s cardiac, respiratory distress noticed at this time. Patient Obtundent, open eyes spontaneously. A. fib with HR 102. Patient on IV amiodarone 0.5 mg/min, endorsed IV amiodarone 0.5mg/min started 0025. GT running Glucerna 1.2 at 25ml/h. Trach to vent Portex 8 AC 14 TV 450 Fio2@ 35% O2 sat 96% at this time. Thakkar Catheter draining well to gravity at this time. IV on left AC 20G, asymptomatic, patent, intact, IVF D5NS running @ 25ml/h. Bed in lowest position and locked, side rails upx3, call light within reach, bed alarm on. Will continue to monitor. Addendum: 08/27/19 at 0751 by TAMIKA CHOI RN Patient on right wrist restraint cap refill <3 sec, able to move.
--- NOTE | 2019-08-27 07:50 | General Progress Note ---
Assessment/Plan Assessment/Plan: Assessment/Plan Assessment/Plan: Assessment - GT migration out of stomach - Mushroom cap in anterior abdominal wall (GT removed) - Abdominal wall swelling, w/o abscess - Fever, tachy, WBC, CRP - suspect due to GT migration - anemia - OB (+) stools - Dark stools, but on PO Iron - s/p Trach Recommendations - PPI q 12 - NGT for meds and feeds - begin fees - broad spectrum abx - GT site topical abx - follow exam and labs - transfuse as needed - laxative - Nic need PEG replacement at later time, once abd wall infection improved - Will hold off on diagnostic EGD, since will need another EGD for PEG placement Subjective ROS Limited/Unobtainable: No Allergies: Coded Allergies: No Known Allergies (Unverified , 08/07/19) Objective Last 24 Hour Vital Signs Date Time Temp Pulse Resp B/P (MAP) Pulse Ox O2 Delivery O2 Flow Rate FiO2 08/27/19 07:14 90 24 35 08/27/19 04:00 98.0 102 24 141/83 (102) 99 08/27/19 04:00 35 08/27/19 04:00 Mechanical Ventilator 08/27/19 03:58 95 08/27/19 02:35 89 24 35 08/27/19 00:00 99.1 78 24 126/74 (91) 100 08/27/19 00:00 102 08/27/19 00:00 Mechanical Ventilator 08/26/19 22:59 79 26 35 08/26/19 22:30 98.4 96 26 132/73 (92) 95 08/26/19 21:00 135/80 08/26/19 20:59 125 135/80 08/26/19 20:00 98.4 116 32 146/86 (106) 99 08/26/19 20:00 35 08/26/19 20:00 Mechanical Ventilator 08/26/19 19:49 86 28 35 08/26/19 19:29 129 08/26/19 16:00 Mechanical Ventilator 08/26/19 16:00 35 08/26/19 16:00 98.8 100 20 154/78 (103) 100 08/26/19 16:00 110 08/26/19 15:16 134 156/83 08/26/19 14:54 118 25 35 08/26/19 13:49 128 115/92 08/26/19 12:00 35 08/26/19 12:00 Mechanical Ventilator 08/26/19 12:00 119 08/26/19 12:00 99.0 120 20 126/74 (91) 100 08/26/19 10:58 101 31 35 08/26/19 08:39 145 121/77 08/26/19 08:39 121/77 08/26/19 08:00 Mechanical Ventilator 08/26/19 08:00 98.9 145 20 121/71 (88) 100 08/26/19 08:00 35 08/26/19 08:00 135 Intake and Output 08/26/19 08/27/19 19:00 07:00 Intake Total 274.4425 ml 847.1575 ml Output Total 1000 ml Balance 274.4425 ml -152.8425 ml Free Water 80 ml 60 ml IV Total 44.4425 ml 597.1575 ml Tube Feeding 150 ml 190 ml Output Urine Total 1000 ml # Bowel Movements 3 4 Laboratory Tests 08/26/19 14:39: Arterial Blood pH 7.484H, Arterial Blood Partial Pressure CO2 30.1L, Arterial Blood Partial Pressure O2 100.1H, Arterial Blood HCO3 22.1, Arterial Blood Oxygen Saturation 97.2, Arterial Blood Base Excess -0.9, Álvaro Test Positive Height (Feet): 5 Height (Inches): 10.00 Weight (Pounds): 249 General Appearance: no apparent distress EENT: normal ENT inspection Neck: supple Cardiovascular: normal rate Respiratory/Chest: decreased breath sounds Abdomen: normal bowel sounds, non tender, soft Extremities: non-tender Byron Gallagher MD Aug 27, 2019 07:50
[2019-08-27 08:22] LABS: BASOPHILS % (AUTO) 0.4 % (0.0-2.0); HEMATOCRIT 26.3 % (42.0-52.0); HEMOGLOBIN 8.3 G/DL (14.2-18.0); LYMPHOCYTES % (AUTO) 10.8 % (20.0-45.0); MEAN CORPUSCULAR VOLUME 100 FL (80-99); MONOCYTES % (AUTO) 10.8 % (1.0-10.0); PLATELET COUNT 205 K/UL (150-450); RED BLOOD COUNT 2.63 M/UL (4.70-6.10)
--- NOTE | 2019-08-27 08:25 | Pulmonology Progress Note ---
Subjective ROS Limited/Unobtainable: Yes Constitutional: Denies: fever Allergies: Coded Allergies: No Known Allergies (Unverified , 08/07/19) Subjective remains ill had GT sinus tachy improved poor renal function noted vitals noted Objective Last 24 Hour Vital Signs Date Time Temp Pulse Resp B/P (MAP) Pulse Ox O2 Delivery O2 Flow Rate FiO2 08/27/19 07:14 90 24 35 08/27/19 06:00 20 159/88 (111) 100 08/27/19 05:00 20 149/79 (102) 100 08/27/19 04:00 98.0 102 24 141/83 (102) 99 08/27/19 04:00 35 08/27/19 04:00 Mechanical Ventilator 08/27/19 03:58 95 08/27/19 03:00 20 135/70 (91) 100 08/27/19 02:35 89 24 35 08/27/19 02:00 20 138/88 (105) 100 08/27/19 01:00 20 129/77 (94) 100 08/27/19 00:00 99.1 78 24 126/74 (91) 100 08/27/19 00:00 102 08/27/19 00:00 Mechanical Ventilator 08/26/19 22:59 79 26 35 08/26/19 22:30 98.4 96 26 132/73 (92) 95 08/26/19 21:00 135/80 08/26/19 20:59 125 135/80 08/26/19 20:00 98.4 116 32 146/86 (106) 99 08/26/19 20:00 35 08/26/19 20:00 Mechanical Ventilator 08/26/19 19:49 86 28 35 08/26/19 19:29 129 08/26/19 19:00 20 128/80 (96) 100 08/26/19 18:00 20 125/70 (88) 100 08/26/19 17:00 20 130/80 (97) 100 08/26/19 16:00 Mechanical Ventilator 08/26/19 16:00 35 08/26/19 16:00 98.8 100 20 154/78 (103) 100 08/26/19 16:00 110 08/26/19 15:16 134 156/83 08/26/19 14:54 118 25 35 08/26/19 13:49 128 115/92 08/26/19 12:00 35 08/26/19 12:00 Mechanical Ventilator 08/26/19 12:00 119 08/26/19 12:00 99.0 120 20 126/74 (91) 100 08/26/19 10:58 101 31 35 08/26/19 08:39 145 121/77 08/26/19 08:39 121/77 Intake and Output 08/26/19 08/27/19 19:00 07:00 Intake Total 274.4425 ml 847.1575 ml Output Total 1000 ml Balance 274.4425 ml -152.8425 ml Free Water 80 ml 60 ml IV Total 44.4425 ml 597.1575 ml Tube Feeding 150 ml 190 ml Output Urine Total 1000 ml # Bowel Movements 3 4 Objective WDWN trach reduced breath sounds bilaterally without rhonchi or wheeze [id number] without MRG NABS nontender no CCE reduced LOC Laboratory Tests 08/26/19 14:39: Arterial Blood pH 7.484H, Arterial Blood Partial Pressure CO2 30.1L, Arterial Blood Partial Pressure O2 100.1H, Arterial Blood HCO3 22.1, Arterial Blood Oxygen Saturation 97.2, Arterial Blood Base Excess -0.9, Álvaro Test Positive 08/27/19 07:45: White Blood Count [Pending], Red Blood Count [Pending], Hemoglobin [Pending], Hematocrit [Pending], Mean Corpuscular Volume [Pending], Mean Corpuscular Hemoglobin [Pending], Mean Corpuscular Hemoglobin Concent [Pending], Red Cell Distribution Width [Pending], Platelet Count [Pending], Mean Platelet Volume [ Pending], Neutrophils (%) (Auto) [Pending], Lymphocytes (%) (Auto) [Pending], Monocytes (%) (Auto) [Pending], Eosinophils (%) (Auto) [Pending], Basophils (%) (Auto) [Pending], Sodium Level [Pending], Potassium Level [Pending], Chloride Level [Pending], Carbon Dioxide Level [Pending], Blood Urea Nitrogen [Pending], Creatinine [Pending], Estimat Glomerular Filtration Rate [Pending], Glucose Level [Pending], Calcium Level [Pending] Current Medications Medications (Trade) Dose Ordered Sig/Nury Route PRN Reason Start Time Stop Time Status Last Admin Dose Admin Acetaminophen (Tylenol) 325 mg Q6H PRN RECTAL Temp >100.5 08/08/19 21:45 09/07/19 21:44 Acetaminophen (Tylenol) 650 mg Q4H PRN GT Mild Pain (Pain Scale 1-3) 08/08/19 10:45 09/07/19 10:44 08/22/19 15:04 Acetaminophen (Tylenol) 650 mg Q4H PRN GT Temp >100.5 08/08/19 10:45 09/07/19 10:44 08/24/19 23:54 Amantadine HCl (Symmetrel) 100 mg DAILY GT 08/09/19 09:00 09/08/19 08:59 08/26/19 08:40 Amiodarone HCl 900 mg/Dextrose 500 ml @ 0 mls/hr ONCE IV 08/26/19 18:30 08/27/19 18:29 08/26/19 18:25 Ascorbic Acid (Vitamin C) 250 mg DAILY GT 08/09/19 09:00 09/08/19 08:59 08/26/19 08:40 Dextrose/Sodium Chloride 1,000 ml @ 25 mls/hr Q24H IV 08/24/19 13:00 09/22/19 12:59 08/26/19 08:41 Folic Acid (Folate) 1 mg DAILY GT 08/08/19 14:30 09/07/19 14:29 08/26/19 08:38 Heparin Sodium (Porcine) (Heparin 5000 units/ml) 5,000 units EVERY 12 HOURS SUBQ 08/08/19 21:00 09/22/19 20:59 08/26/19 20:59 Hydralazine HCl (Apresoline) 10 mg Q6H PRN IV SBP> 160 08/08/19 21:45 11/06/19 21:44 Hydralazine HCl (Apresoline) 10 mg Q6HR PRN GT SBP above 160 08/26/19 01:45 11/24/19 01:44 Lisinopril (PriniviL) 20 mg Q12HR GT 08/08/19 21:00 09/07/19 20:59 08/26/19 21:00 Metoprolol Tartrate (Lopressor) 50 mg Q12HR GT 08/26/19 09:00 11/24/19 08:59 08/26/19 20:59 Multivitamins (Multivitamins) 1 tab DAILY GT 08/09/19 09:00 09/08/19 08:59 08/26/19 08:39 Pantoprazole (Protonix) 40 mg EVERY 12 HOURS IVP 08/09/19 23:00 09/08/19 22:59 08/26/19 20:58 Assessment/Plan Assessment/Plan anemia possible GIB sinus tachycardia respiratory failure trach chronic encephalopathy GT site infection low K fevers better severe protein calorie malnutrition hypotension PLAN dc planning cards input- beta albaro increased and now better vent support feeds per gi - GT care wound care monitor HH renal to see ID follow up dc planning if vitals remain stable impression, plan, and exam edited and reviewed in detail care discussed with Isaiah Villatoro MD Aug 27, 2019 08:25
--- NOTE | 2019-08-27 08:43 | Diagnostic Imaging Report ---
EXAM: XR Chest, 1 View CLINICAL HISTORY: Pleural effusion TECHNIQUE: Frontal view of the chest. COMPARISON: August 07, 2019. FINDINGS: Tracheostomy tube in place. Cardiac silhouette and pulmonary vascularity are within normal limits. Low lung volumes. Mild right lower lobe infiltrates. No pleural effusions. Old granulomatous disease. IMPRESSION: Mild right lower lobe infiltrate, new since prior exam. No pleural effusions.
[2019-08-27] MEDS: Heparin 5000 units/ml inj SUBQ SCH (09:00)
[2019-08-27] MEDS: Pantoprazole Inj IVP SCH ×2 (09:09→20:11)
[2019-08-27] MEDS: Ascorbic Acid 500mg tab GT SCH (09:09)
[2019-08-27] MEDS: Amantadine 100mg cap GT SCH (09:09)
[2019-08-27] MEDS: Lisinopril 20mg tab GT SCH ×2 (09:09→20:11)
[2019-08-27] MEDS: Metoprolol Tartrate 50mg tab GT SCH ×2 (09:09→20:10)
[2019-08-27] MEDS: Acetaminophen 650mg/20.3ml GT PRN ×3 (09:10→20:58)
[2019-08-27 09:24] LABS: ANION GAP 9 mmol/L (5-15); BLOOD UREA NITROGEN 35 mg/dL (7-18); CALCIUM 7.7 MG/DL (8.5-10.1); CARBON DIOXIDE 26 MMOL/L (21-32); CHLORIDE 110 MMOL/L (98-107); CREATININE 1.5 MG/DL (0.55-1.30); POTASSIUM 3.2 MMOL/L (3.5-5.1); SODIUM 145 MMOL/L (136-145)
--- NOTE | 2019-08-27 11:09 | NUR ---
NURSE NOTES: Dr. Miles at the nursing station, made aware of K level 3.2 no new order received at this time. Will continue to follow up.
--- NOTE | 2019-08-27 11:16 | Nephrology Progress Note ---
Assessment/Plan Plan LEAH - Multifactorial. Monitor labs. Nonoliguric ARF. Resolving. Subjective Subjective More alert. Confused. Objective Objective Last 24 Hour Vital Signs Date Time Temp Pulse Resp B/P (MAP) Pulse Ox O2 Delivery O2 Flow Rate FiO2 08/27/19 11:02 72 23 35 08/27/19 10:00 97.7 08/27/19 09:40 97.7 08/27/19 09:09 121 162/103 08/27/19 09:09 162/103 08/27/19 08:00 108 08/27/19 08:00 100.2 22 162/103 (122) 100 08/27/19 08:00 Mechanical Ventilator 08/27/19 08:00 35 08/27/19 07:14 90 24 35 08/27/19 06:00 20 159/88 (111) 100 08/27/19 05:00 20 149/79 (102) 100 08/27/19 04:00 98.0 102 24 141/83 (102) 99 08/27/19 04:00 35 08/27/19 04:00 Mechanical Ventilator 08/27/19 03:58 95 08/27/19 03:00 20 135/70 (91) 100 08/27/19 02:35 89 24 35 08/27/19 02:00 20 138/88 (105) 100 08/27/19 01:00 20 129/77 (94) 100 08/27/19 00:00 99.1 78 24 126/74 (91) 100 08/27/19 00:00 102 08/27/19 00:00 Mechanical Ventilator 08/26/19 22:59 79 26 35 08/26/19 22:30 98.4 96 26 132/73 (92) 95 08/26/19 21:00 135/80 08/26/19 20:59 125 135/80 08/26/19 20:00 98.4 116 32 146/86 (106) 99 08/26/19 20:00 35 08/26/19 20:00 Mechanical Ventilator 08/26/19 19:49 86 28 35 08/26/19 19:29 129 08/26/19 19:00 20 128/80 (96) 100 08/26/19 18:00 20 125/70 (88) 100 08/26/19 17:00 20 130/80 (97) 100 08/26/19 16:00 Mechanical Ventilator 08/26/19 16:00 35 08/26/19 16:00 98.8 100 20 154/78 (103) 100 08/26/19 16:00 110 08/26/19 15:16 134 156/83 08/26/19 14:54 118 25 35 08/26/19 13:49 128 115/92 08/26/19 12:00 35 08/26/19 12:00 Mechanical Ventilator 08/26/19 12:00 119 08/26/19 12:00 99.0 120 20 126/74 (91) 100 Intake and Output 08/26/19 08/27/19 19:00 07:00 Intake Total 274.4425 ml 847.1575 ml Output Total 1000 ml Balance 274.4425 ml -152.8425 ml Free Water 80 ml 60 ml IV Total 44.4425 ml 597.1575 ml Tube Feeding 150 ml 190 ml Output Urine Total 1000 ml # Bowel Movements 3 4 Laboratory Tests 08/26/19 14:39: Arterial Blood pH 7.484H, Arterial Blood Partial Pressure CO2 30.1L, Arterial Blood Partial Pressure O2 100.1H, Arterial Blood HCO3 22.1, Arterial Blood Oxygen Saturation 97.2, Arterial Blood Base Excess -0.9, Álvaro Test Positive 08/27/19 07:45: White Blood Count 8.0, Red Blood Count 2.63L, Hemoglobin 8.3L, Hematocrit 26.3L , Mean Corpuscular Volume 100H, Mean Corpuscular Hemoglobin 31.5H, Mean Corpuscular Hemoglobin Concent 31.5L, Red Cell Distribution Width 16.0H, Platelet Count 205, Mean Platelet Volume 8.0, Neutrophils (%) (Auto) 77.0H, Lymphocytes (%) (Auto) 10.8L, Monocytes (%) (Auto) 10.8H, Eosinophils (%) (Auto ) 1.0, Basophils (%) (Auto) 0.4, Sodium Level 145, Potassium Level 3.2L, Chloride Level 110H, Carbon Dioxide Level 26, Anion Gap 9, Blood Urea Nitrogen 35H, Creatinine 1.5H, Estimat Glomerular Filtration Rate 55.4, Glucose Level 128H, Calcium Level 7.7L Height (Feet): 5 Height (Inches): 10.00 Weight (Pounds): 249 Objective On Vent. Cv RR Lungs B Librado Rubio SNT. BS + E No CCE Ashwin Young MD Aug 27, 2019 11:16
--- NOTE | 2019-08-27 11:39 | NUR ---
CASE MANAGEMENT:REVIEW 08/27/19 SI: ANEMIA. ?GIB. GT SITE INFECTION. PAFIB W/RVR 100.2 121 22 162/103 100% ON VENT SUPPORT W/35% FIO2 H/H-8.3/26.3 K-3.2 BUN+35 CR+1.5 CA-7.7 IS: IV AMIODARONE X1 LOPRESSOR GT Q12 IVF@25/HR IV PROTONIX Q12 HEPARIN SQ Q12 LISINOPRIL PO Q12 : STEP DOWN UNIT DCP: FROM [facility] CONV PLAN: CONTROL HEART RATE
--- NOTE | 2019-08-27 13:24 | NUR ---
NURSE NOTES: Dr. Shira Snow at the nursing station, made aware of one time fever 100.2 today. No new order received at this time. Will continue to follow up.
--- NOTE | 2019-08-27 13:47 | Infectious Diseases Prog Note ---
Assessment/Plan Assessment/Plan A: Gastrostomy infection Pseudomonas & Providencia pneumonia VDRF Anemia Pressure ulcer Diverticulosis P; Observe off antibiotic Subjective ROS Limited/Unobtainable: Yes Constitutional: Reports: fever, other - To=059.2 in am Neurologic: Reports: confusion, other - on restraint Allergies: Coded Allergies: No Known Allergies (Unverified , 08/07/19) Objective Last 24 Hour Vital Signs Date Time Temp Pulse Resp B/P (MAP) Pulse Ox O2 Delivery O2 Flow Rate FiO2 08/27/19 12:00 112 08/27/19 12:00 Mechanical Ventilator 08/27/19 12:00 35 08/27/19 12:00 97.7 114 22 143/97 (112) 100 08/27/19 11:02 72 23 35 08/27/19 10:00 97.7 08/27/19 09:40 97.7 08/27/19 09:09 121 162/103 08/27/19 09:09 162/103 08/27/19 08:00 108 08/27/19 08:00 100.2 22 162/103 (122) 100 08/27/19 08:00 Mechanical Ventilator 08/27/19 08:00 35 08/27/19 07:14 90 24 35 08/27/19 06:00 20 159/88 (111) 100 08/27/19 05:00 20 149/79 (102) 100 08/27/19 04:00 98.0 102 24 141/83 (102) 99 08/27/19 04:00 35 08/27/19 04:00 Mechanical Ventilator 08/27/19 03:58 95 08/27/19 03:00 20 135/70 (91) 100 08/27/19 02:35 89 24 35 08/27/19 02:00 20 138/88 (105) 100 08/27/19 01:00 20 129/77 (94) 100 08/27/19 00:00 99.1 78 24 126/74 (91) 100 08/27/19 00:00 102 08/27/19 00:00 Mechanical Ventilator 08/26/19 22:59 79 26 35 08/26/19 22:30 98.4 96 26 132/73 (92) 95 08/26/19 21:00 135/80 08/26/19 20:59 125 135/80 08/26/19 20:00 98.4 116 32 146/86 (106) 99 08/26/19 20:00 35 08/26/19 20:00 Mechanical Ventilator 08/26/19 19:49 86 28 35 08/26/19 19:29 129 08/26/19 19:00 20 128/80 (96) 100 08/26/19 18:00 20 125/70 (88) 100 08/26/19 17:00 20 130/80 (97) 100 08/26/19 16:00 Mechanical Ventilator 08/26/19 16:00 35 08/26/19 16:00 98.8 100 20 154/78 (103) 100 08/26/19 16:00 110 08/26/19 15:16 134 156/83 08/26/19 14:54 118 25 35 08/26/19 13:49 128 115/92 Height (Feet): 5 Height (Inches): 10.00 Weight (Pounds): 249 HEENT: status post trach Respiratory/Chest: lungs clear, other - on ventilator Cardiovascular: tachycardia Abdomen: soft, non tender, other - GT feeding Extremities: no edema Neurologic/Psychiatric: other - opens eyes Laboratory Tests Test 08/26/19 14:39 08/27/19 07:45 Arterial Blood pH 7.484 (7.350-7.450) Arterial Blood Partial Pressure CO2 30.1 mmHg (35.0-45.0) L Arterial Blood Partial Pressure O2 100.1 mmHg (75.0-100.0) H Arterial Blood HCO3 22.1 mmol/L (22.0-26.0) Arterial Blood Oxygen Saturation 97.2 % (95-100) Arterial Blood Base Excess -0.9 (-2-2) Álvaro Test Positive White Blood Count 8.0 K/UL (4.8-10.8) Red Blood Count 2.63 M/UL (4.70-6.10) L Hemoglobin 8.3 G/DL (14.2-18.0) L Hematocrit 26.3 % (42.0-52.0) L Mean Corpuscular Volume 100 FL (80-99) H Mean Corpuscular Hemoglobin 31.5 PG (27.0-31.0) H Mean Corpuscular Hemoglobin Concent 31.5 G/DL (32.0-36.0) L Red Cell Distribution Width 16.0 % (11.6-14.8) H Platelet Count 205 K/UL (150-450) Mean Platelet Volume 8.0 FL (6.5-10.1) Neutrophils (%) (Auto) 77.0 % (45.0-75.0) H Lymphocytes (%) (Auto) 10.8 % (20.0-45.0) L Monocytes (%) (Auto) 10.8 % (1.0-10.0) H Eosinophils (%) (Auto) 1.0 % (0.0-3.0) Basophils (%) (Auto) 0.4 % (0.0-2.0) Sodium Level 145 MMOL/L (136-145) Potassium Level 3.2 MMOL/L (3.5-5.1) L Chloride Level 110 MMOL/L (98-107) H Carbon Dioxide Level 26 MMOL/L (21-32) Anion Gap 9 mmol/L (5-15) Blood Urea Nitrogen 35 mg/dL (7-18) H Creatinine 1.5 MG/DL (0.55-1.30) H Estimat Glomerular Filtration Rate 55.4 mL/min (>60) Glucose Level 128 MG/DL (74-106) H Calcium Level 7.7 MG/DL (8.5-10.1) L Current Medications Medications (Trade) Dose Ordered Sig/Nury Route PRN Reason Start Time Stop Time Status Last Admin Dose Admin Acetaminophen (Tylenol) 325 mg Q6H PRN RECTAL Temp >100.5 08/08/19 21:45 09/07/19 21:44 Acetaminophen (Tylenol) 650 mg Q4H PRN GT Mild Pain (Pain Scale 1-3) 08/08/19 10:45 09/07/19 10:44 08/22/19 15:04 Acetaminophen (Tylenol) 650 mg Q4H PRN GT Temp >100.5 08/08/19 10:45 09/07/19 10:44 08/27/19 09:10 Amantadine HCl (Symmetrel) 100 mg DAILY GT 08/09/19 09:00 09/08/19 08:59 08/27/19 09:09 Amiodarone HCl 900 mg/Dextrose 500 ml @ 0 mls/hr ONCE IV 08/26/19 18:30 08/27/19 18:29 08/26/19 18:25 Ascorbic Acid (Vitamin C) 250 mg DAILY GT 08/09/19 09:00 09/08/19 08:59 08/27/19 09:09 Dextrose/Sodium Chloride 1,000 ml @ 25 mls/hr Q24H IV 08/24/19 13:00 09/22/19 12:59 08/26/19 08:41 Folic Acid (Folate) 1 mg DAILY GT 08/08/19 14:30 09/07/19 14:29 08/27/19 09:10 Heparin Sodium (Porcine) (Heparin 5000 units/ml) 5,000 units EVERY 12 HOURS SUBQ 08/08/19 21:00 09/22/19 20:59 08/26/19 20:59 Hydralazine HCl (Apresoline) 10 mg Q6H PRN IV SBP> 160 08/08/19 21:45 11/06/19 21:44 Hydralazine HCl (Apresoline) 10 mg Q6HR PRN GT SBP above 160 08/26/19 01:45 11/24/19 01:44 Lisinopril (PriniviL) 20 mg Q12HR GT 08/08/19 21:00 09/07/19 20:59 08/27/19 09:09 Metoprolol Tartrate (Lopressor) 50 mg Q12HR GT 08/26/19 09:00 11/24/19 08:59 08/27/19 09:09 Multivitamins (Multivitamins) 1 tab DAILY GT 08/09/19 09:00 09/08/19 08:59 08/27/19 09:10 Pantoprazole (Protonix) 40 mg EVERY 12 HOURS IVP 08/09/19 23:00 09/08/19 22:59 08/27/19 09:09 Potassium Chloride (K-Dur) 40 meq ONCE GT 08/27/19 13:45 08/27/19 14:30 Issa Snow MD Aug 27, 2019 13:47
[2019-08-27] MEDS: D5NS 1,000 ML IV SCH (14:36)
--- NOTE | 2019-08-27 15:26 | NUR ---
NURSE NOTES: Per Dr. Hurt, discontinue heparin SQ. Order noted, entered, carried out.
--- NOTE | 2019-08-27 16:48 | NUR ---
INSURANCE FAXED REVIEWS AND CLINICALS TO [facility] F: [phone] REF#[id number]
[2019-08-27] MEDS ORDERED: D5NS 1000ml IV ONE (17:13)
--- NOTE | 2019-08-27 19:23 | NUR ---
HAND-OFF: Report given to KEHINDE Barber. Endorsed plan of care.
--- NOTE | 2019-08-27 19:30 | NUR ---
NURSE NOTES: pt. appears to be warm to touch- temp now 99.1- cooling measures applied- will continue to monitor pt. and with plan of care- pt. remains stable.
--- NOTE | 2019-08-27 19:44 | NUR ---
NURSE NOTES: Received report from Graciela RN, pt. in bed awake with eyes open- non-verbal- no signs or symptoms of acute cardiac or respiratory distress noted, HOB elevated- aspiration precautions observed, bed alarm on, side rails up x's3 and safety brakes engaged, call light within easy reach, Pt. has G -tube running Glucerna 1.2 at 45cc/hr- no residual noted- Goal is 65cc/hr, Thakkar intact and draining to gravity- pt. appears to be clean and dry, pt. appears to be tolerating current vent settings-AC14, TV 450, Fio2 @35% and peep 5- no distress noted, Lt. AC 20G running D5NS @25cc/hr-TKO/ patent- per endorsement to be d/c once pt. reaches Feeding goal at 65cc/hr, pt. appears clean and dry, pt. has rt. wrist restraint- restraint removed- pulse is palpable and skin is intact- restraint reapplied, safety measures continued, will continue with plan of care.
--- NOTE | 2019-08-27 20:22 | Surgery Progress Note ---
Surgery Progress Note Subjective Additional Comments labs noted exam unchanged comfortable appearing Objective Last 24 Hour Vital Signs Date Time Temp Pulse Resp B/P (MAP) Pulse Ox O2 Delivery O2 Flow Rate FiO2 08/27/19 20:11 148/89 08/27/19 20:10 129 148/89 08/27/19 19:07 106 26 35 08/27/19 17:11 98.8 08/27/19 16:00 113 08/27/19 16:00 100.0 105 22 152/94 (113) 100 08/27/19 16:00 Mechanical Ventilator 08/27/19 16:00 35 08/27/19 15:30 114 25 35 08/27/19 12:00 112 08/27/19 12:00 Mechanical Ventilator 08/27/19 12:00 35 08/27/19 12:00 97.7 114 22 143/97 (112) 100 08/27/19 11:02 72 23 35 08/27/19 10:00 97.7 08/27/19 09:40 97.7 08/27/19 09:09 121 162/103 08/27/19 09:09 162/103 08/27/19 08:00 108 08/27/19 08:00 100.2 22 162/103 (122) 100 08/27/19 08:00 Mechanical Ventilator 08/27/19 08:00 35 08/27/19 07:14 90 24 35 08/27/19 06:00 20 159/88 (111) 100 08/27/19 05:00 20 149/79 (102) 100 08/27/19 04:00 98.0 102 24 141/83 (102) 99 08/27/19 04:00 35 08/27/19 04:00 Mechanical Ventilator 08/27/19 03:58 95 08/27/19 03:00 20 135/70 (91) 100 08/27/19 02:35 89 24 35 08/27/19 02:00 20 138/88 (105) 100 08/27/19 01:00 20 129/77 (94) 100 08/27/19 00:00 99.1 78 24 126/74 (91) 100 08/27/19 00:00 102 08/27/19 00:00 Mechanical Ventilator 08/26/19 22:59 79 26 35 08/26/19 22:30 98.4 96 26 132/73 (92) 95 08/26/19 21:00 135/80 08/26/19 20:59 125 135/80 I&O Intake and Output 08/26/19 08/27/19 19:00 07:00 Intake Total 274.4425 ml 847.1575 ml Output Total 1000 ml Balance 274.4425 ml -152.8425 ml Free Water 80 ml 60 ml IV Total 44.4425 ml 597.1575 ml Tube Feeding 150 ml 190 ml Output Urine Total 1000 ml # Bowel Movements 3 4 Dressing: other Wound: other Drains: other Cardiovascular: RSR Respiratory: decreased breath sounds Abdomen: soft, distended, decreased bowel sounds Extremities: no tenderness, no cyanosis Laboratory Tests Test 08/27/19 07:45 08/27/19 16:55 White Blood Count 8.0 K/UL (4.8-10.8) Red Blood Count 2.63 M/UL (4.70-6.10) L Hemoglobin 8.3 G/DL (14.2-18.0) L Hematocrit 26.3 % (42.0-52.0) L Mean Corpuscular Volume 100 FL (80-99) H Mean Corpuscular Hemoglobin 31.5 PG (27.0-31.0) H Mean Corpuscular Hemoglobin Concent 31.5 G/DL (32.0-36.0) L Red Cell Distribution Width 16.0 % (11.6-14.8) H Platelet Count 205 K/UL (150-450) Mean Platelet Volume 8.0 FL (6.5-10.1) Neutrophils (%) (Auto) 77.0 % (45.0-75.0) H Lymphocytes (%) (Auto) 10.8 % (20.0-45.0) L Monocytes (%) (Auto) 10.8 % (1.0-10.0) H Eosinophils (%) (Auto) 1.0 % (0.0-3.0) Basophils (%) (Auto) 0.4 % (0.0-2.0) Sodium Level 145 MMOL/L (136-145) Potassium Level 3.2 MMOL/L (3.5-5.1) L Chloride Level 110 MMOL/L (98-107) H Carbon Dioxide Level 26 MMOL/L (21-32) Anion Gap 9 mmol/L (5-15) Blood Urea Nitrogen 35 mg/dL (7-18) H Creatinine 1.5 MG/DL (0.55-1.30) H Estimat Glomerular Filtration Rate 55.4 mL/min (>60) Glucose Level 128 MG/DL (74-106) H Calcium Level 7.7 MG/DL (8.5-10.1) L Stool Occult Blood Pending Plan Problems: (1) Anemia Assessment & Plan: 08/22 acute brisk pulsatile active bleeding from the G-tube site. Significant for blood identified on the dressings and in the patient's bed therefore immediate hemostasis indicated and recommended. At the bedside patient was given pain medication morphine IV and the G-tube site incision was extended and postop bleeding identified from around the level of the deep subcutaneous tissue. 2 [id number] 0 silk sutures were placed and hemostasis was obtained. The skin incision was reapproximated using 0 silk interrupted sutures. Patient taught procedure well. Hemostasis noted. Labs ordered will monitor (2) Unstageable decubitus ulcer Assessment & Plan: Pt presented on admission with multiple Pressure Injuries. Pt has a Tracheostomy and no areas of skin concerns noted under tracheal collar. Unstageable Sacral Pressure Injury(L)9.5cm x (W)10cm. Base of wound is 75% mixed slough and eschar,25% carolynn, Edges adherent with surrounding purple and maroon indurated borders. No odor or exudate noted. DTPI L Heel (L)3.7cm x (W)4.5cm. Base of wound is maroon and indurated with surrounding non-Blanching erythema. Callused skin periwound. Reabsorbing DTPI [place] L Foot (L)3.3cm x (W)2.5cm. Base of Pressure Injury is maroon but dry. No erythema or fluctuance periwound. DTPI Lateral L 1st metatarsal(L)1.5cm x (W)2cm. Base of wound is maroon and indurated.Callused skin periwound. DTPI Lateral R Heel (L)4.4cm x (W)6cm. Base of wound is indurated ,purple with surrounding maroon and fluctuant borders.Callusing periwound. DTPI R Hallux (L)1.8cm x (W)1.9cm. Base of wound is indurated and purple. Callusing periwound. DTPI Lateral R 1st metatarsal(L)2cm x (W)2.7cm. Base of wound is indurated and maroon. Callusing periwound. Tx.Plan: Cleanse Sacral wound with Saline. Apply TheraHoney. Apply Moisture Barrier Paste periwound. Cover with Optifoam drsg. Change every 3 days and prn. Apply Cavilon Skin Barrier to wounds L L Heel , L st metatarsal,Dorsal L Foot. Cover each Site with Optifoam drsg. Change every 7 days and prn. Apply Cavilon Skin Barrier to R Heel, R Hallux, R 1st metatarsal. Cover each site with Optifoam drsg. Change every 7 days and prn. APM/KHOA Mattress. Reposition at least every 2hours or as tolerated. Off-Load Heels with Pillows. (3) Leaking PEG tube Assessment & Plan: prior peg removed plan new placement soon will monitor site drainage noted packing placed Minimal drainage from prior G-tube site discussed with nursing about packing and dressings will continue current care plan plan for PEG tube once improved s/p peg 08/21 tf d/c plan Lung bases: Atelectasis at the lung bases. Liver: Unremarkable. No mass. Gallbladder and bile ducts: Unremarkable. No calcified stones. No ductal dilation. Pancreas: Unremarkable. No mass. No ductal dilation. Spleen: Unremarkable. No splenomegaly. Adrenals: Unremarkable. No mass. Kidneys and ureters: Nonobstructing stone in the lower pole of the right kidney. Stomach and bowel: Tract from a recent percutaneous gastrostomy tube which is healing in the subcutaneous fat. Surrounding inflammatory changes but no abscess. Severe colonic diverticulosis within the sigmoid colon with mural hypertrophy however no surrounding inflammatory changes to suggest acute diverticulitis. Underlying malignancy not excluded. No obstruction. Intraperitoneal space: Unremarkable. No free air. No significant fluid collection. Bones/joints: No acute fracture. No dislocation. Soft tissues: Fat stranding in the ventral abdomen. Vasculature: Unremarkable. No abdominal aortic aneurysm. Lymph nodes: Unremarkable. No enlarged lymph nodes. Tubes, lines and devices: Thakkar catheter within the bladder. IMPRESSION: 1. Severe colonic diverticulosis within the sigmoid colon with mural hypertrophy however no surrounding inflammatory changes to suggest acute diverticulitis. Underlying malignancy not excluded. 2. Tract from a recent percutaneous gastrostomy tube which is healing in the subcutaneous fat. Surrounding inflammatory changes but no abscess. (4) Person under investigation for COVID-19 Assessment & Plan: There is a tracheostomy. Calcified granuloma is seen in the right midlung. Granulomatous calcified nodes are seen in the left aortopulmonary window. No definite infiltrates, effusions, congestion. The heart size is upper limits normal. Impression: No definite acute abnormality Evidence of old granulomatous disease Homero Cummings Aug 27, 2019 20:22
--- NOTE | 2019-08-27 20:52 | NUR ---
NURSE NOTES: reassessed patients temp- appears to be trending up now 99.6- axillary- cooling measures appear to be unsuccessful- will administer Tylenol - per eMAR orders. Will continue to monitor pt
[2019-08-28] VITALS (51 sets, daily range): BP systolic 54–193; BP diastolic 34–136
--- NOTE | 2019-08-28 00:30 | NUR ---
NURSE NOTES: cooling measures appear to be successful- temp appears to be trending down now 98.4- axillary- will continue to monitor pt. and with plan of care.
--- NOTE | 2019-08-28 01:41 | NUR ---
NURSE NOTES: Left message for DR. garrison- regarding pts heart rate trending up from 130's- low 150's- pt. is asymptomatic- awaiting for call back from doctor.
--- NOTE | 2019-08-28 02:00 | Progress Note ---
DATE: 08/27/2019 CARDIOLOGY PROGRESS NOTE SUBJECTIVE: The patient is on intravenous amiodarone loading since yesterday for rapid atrial fibrillation. Blood pressure parameters remained stable. He is on ventilator support via trach. OBJECTIVE: VITAL SIGNS: Blood pressure 148/89, heart rate 129, respirations 22, afebrile, and T-max 99.6. LUNGS: Thin trach secretions. Bilateral breath sounds with rhonchi. HEART: Irregularly irregular rhythm. Normal S1, S2. ABDOMEN: Soft. G-tube intact. EXTREMITIES: No edema. LABORATORY DATA: White count 8 and hemoglobin 8.3. Potassium 3.2, BUN 35, and creatinine 1.5. IMPRESSION: 1. Paroxysmal atrial fibrillation with rapid ventricular response. 2. Hypokalemia. 3. Hypertensive heart disease. 4. Sepsis. 5. Respiratory failure. 6. Acute on chronic diastolic congestive heart failure. PLAN: 1. Continue intravenous amiodarone. 2. Additional beta-albaro as needed for rate control. 3. Antimicrobials. 4. Ventilator support. 5. Replace potassium. 6. Recheck magnesium. 7. Periodic diuresis based on clinical parameters. 8. Maintain current antihypertensive regimen without change. Augustine Fisher M.D. DR: JARRED JOB#: [id number] CC:
--- NOTE | 2019-08-28 02:08 | NUR ---
NURSE NOTES: Left message for DR. Fisher- regarding EKG done showing A fib w/RVR- awaiting for call back from doctor.
--- NOTE | 2019-08-28 02:52 | NUR ---
NURSE NOTES: orders given by DR. Fisher - to Adilia RN- to transfer pt. to ICU STAT- orders carried out.
--- NOTE | 2019-08-28 03:10 | NUR ---
HAND-OFF: pt. transferred to ICU- report given to KEHINDE Hall- pt. remain stable and no signs of distress. Orders given by DR. Fisher to transfer to ICU.
[2019-08-28] MEDS ORDERED: Amiodarone 900 MG in D5W 500ml 482 ML IV SCH ×2 (03:15→18:30)
[2019-08-28] MEDS: Acetaminophen 650mg/20.3ml GT PRN (03:21)
[2019-08-28] MEDS ORDERED: D5NS 1,000 ML IV SCH (03:30)
--- NOTE | 2019-08-28 03:30 | NUR ---
NURSE NOTES: received report from ana schneider pt trach - vent with o2 sat 100% obtunded with left side wieakness hr165 a-fib ammio drip at o.5 mg/min
--- NOTE | 2019-08-28 03:34 | NUR ---
NURSE NOTES: called Lucille Davis (ANGELES)- listed on face sheet- pt. transferred to ICU- aware pt. will be on Amiodarone Drip- will f/u in morning for update.
[2019-08-28] MEDS ORDERED: Amiodarone 150mg/3ml Amp ONE (03:50)
[2019-08-28] MEDS ORDERED: HydrALAZINE 10mg Tab GT PRN (04:00)
[2019-08-28 05:21] LABS: BASOPHILS % (AUTO) 0.6 % (0.0-2.0); EOSINOPHILS % (AUTO) 0.4 % (0.0-3.0); HEMOGLOBIN 9.8 G/DL (14.2-18.0); MEAN CORPUSCULAR VOLUME 99 FL (80-99); MONOCYTES % (AUTO) 8.6 % (1.0-10.0); NEUTROPHILS % (AUTO) 82.4 % (45.0-75.0); PLATELET COUNT 260 K/UL (150-450); RED BLOOD COUNT 3.11 M/UL (4.70-6.10); RED CELL DISTRIBUTION WIDTH 15.8 % (11.6-14.8); WHITE BLOOD COUNT 11.3 K/UL (4.8-10.8)
--- NOTE | 2019-08-28 06:00 | NUR ---
NURSE NOTES: hr 125-130 afib
--- NOTE | 2019-08-28 06:00 | NUR ---
HAND-OFF: Report given to nayeli schneider using sbar. :
[2019-08-28 06:01] LABS: ALANINE AMINOTRANSFERASE 18 U/L (12-78); ALBUMIN 1.6 G/DL (3.4-5.0); ALBUMIN/GLOBULIN RATIO 0.3 (1.0-2.7); ALKALINE PHOSPHATASE 119 U/L (46-116); ANION GAP 11 mmol/L (5-15); ASPARTATE AMINO TRANSFERASE 27 U/L (15-37); BILIRUBIN,TOTAL 1.1 MG/DL (0.2-1.0); BLOOD UREA NITROGEN 26 mg/dL (7-18); CALCIUM 8.4 MG/DL (8.5-10.1); CARBON DIOXIDE 24 MMOL/L (21-32); CHLORIDE 108 MMOL/L (98-107); CREATININE 1.4 MG/DL (0.55-1.30); POTASSIUM 3.4 MMOL/L (3.5-5.1); SODIUM 143 MMOL/L (136-145)
[2019-08-28 06:07] LABS: BILIRUBIN,DIRECT 0.4 MG/DL (0.0-0.3)
--- NOTE | 2019-08-28 07:20 | NUR ---
NURSE NOTES: Received report from KEHINDE Hall, Pt observed laying in bed with eyes closed. Pt opens eyes to voice, follows commands, able to nod head to answer yes or no questions. Pt is non-verbal; however, trying to mouth words. Left sided weakness noted. Pt has a G-tube running Glucerna 1.2 at 65cc/hr. Abdominal binder in place. Thakkar intact and draining yellow urine to urometer. Pt is Trach to vent, Portex 6, vent settings-AC14, TV 450, Fio2 @35% and peep 5- no distress noted. Lt. AC #20G running D5NS @25cc/hr and Amiodarone 0.5mg/min. Will D/C D5NS as pt is now receiving feeding at goal. Pt received and maintained on Rt. wrist restraint for safety, pulse is palpable and skin is intact. HOB elevated- aspiration precautions observed, bed alarm on, side rails up x3 and safety brakes engaged, call light within easy reach, will continue with plan of care. Addendum: 08/28/19 at 0747 by Albertina Mccall RN Correction- Trach is Portex 8
[2019-08-28] MEDS: Amantadine 100mg cap GT SCH (08:22)
[2019-08-28] MEDS: Metoprolol Tartrate 50mg tab GT SCH ×2 (08:22→22:13)
[2019-08-28] MEDS: Lisinopril 20mg tab GT SCH ×2 (08:23→21:00)
[2019-08-28] MEDS: Ascorbic Acid 500mg tab GT SCH (08:23)
--- NOTE | 2019-08-28 08:54 | Pulmonology Progress Note ---
Subjective ROS Limited/Unobtainable: Yes Constitutional: Reports: fever, other - Fx=204.2 in am Allergies: Coded Allergies: No Known Allergies (Unverified , 08/07/19) Subjective remains ill moved to ICU started on amio drip for SVT poor renal function noted vitals noted Objective Last 24 Hour Vital Signs Date Time Temp Pulse Resp B/P (MAP) Pulse Ox O2 Delivery O2 Flow Rate FiO2 08/28/19 08:30 139 30 153/107 (122) 99 08/28/19 08:23 141/97 08/28/19 08:22 148 141/97 08/28/19 08:00 35 08/28/19 08:00 99.2 141 29 141/97 (112) 100 08/28/19 08:00 Mechanical Ventilator 08/28/19 07:30 139 29 162/110 (127) 100 08/28/19 07:01 140 29 35 08/28/19 07:00 146 34 151/99 (116) 99 08/28/19 06:30 143 32 142/84 (103) 100 08/28/19 06:00 139 32 156/94 (114) 100 08/28/19 05:30 143 33 142/64 (90) 100 08/28/19 05:00 139 34 135/77 (96) 100 08/28/19 04:30 142 35 150/60 (90) 47 08/28/19 04:00 142 36 140/85 (103) 96 08/28/19 04:00 Mechanical Ventilator 08/28/19 04:00 35 08/28/19 04:00 135 08/28/19 03:30 164 35 162/97 (118) 95 08/28/19 02:48 151 38 35 08/28/19 02:23 143 162/97 (118) 08/28/19 02:20 162/97 08/28/19 00:00 98.4 80 24 134/90 (105) 100 08/28/19 00:00 Mechanical Ventilator 08/27/19 23:32 135 08/27/19 23:16 110 22 35 08/27/19 21:28 98.3 08/27/19 20:58 99.6 08/27/19 20:11 148/89 08/27/19 20:10 129 148/89 08/27/19 20:00 99.1 100 24 148/89 (108) 100 08/27/19 20:00 35 08/27/19 20:00 Mechanical Ventilator 08/27/19 19:07 106 26 35 08/27/19 19:02 136 08/27/19 17:11 98.8 08/27/19 16:00 113 08/27/19 16:00 100.0 105 22 152/94 (113) 100 08/27/19 16:00 Mechanical Ventilator 08/27/19 16:00 35 08/27/19 15:30 114 25 35 08/27/19 12:00 112 08/27/19 12:00 Mechanical Ventilator 08/27/19 12:00 35 08/27/19 12:00 97.7 114 22 143/97 (112) 100 08/27/19 11:02 72 23 35 08/27/19 10:00 97.7 08/27/19 09:09 121 162/103 08/27/19 09:09 162/103 Intake and Output 08/27/19 08/28/19 19:00 07:00 Intake Total 1053.26 ml 834.98 ml Output Total 600 ml 615 ml Balance 453.26 ml 219.98 ml Free Water 90 ml 50 ml IV Total 483.26 ml 349.98 ml Tube Feeding 480 ml 435 ml Output Urine Total 600 ml 615 ml # Bowel Movements 1 1 Objective WDWN trach reduced breath sounds bilaterally without rhonchi or wheeze [id number] tachy without MRG NABS nontender no CCE reduced LOC Laboratory Tests 08/27/19 16:55: Stool Occult Blood [Pending] 08/28/19 03:54: White Blood Count 11.3H, Red Blood Count 3.11L, Hemoglobin 9.8L, Hematocrit 31.0L, Mean Corpuscular Volume 99, Mean Corpuscular Hemoglobin 31.4H, Mean Corpuscular Hemoglobin Concent 31.6L, Red Cell Distribution Width 15.8H, Platelet Count 260, Mean Platelet Volume 8.2, Neutrophils (%) (Auto) 82.4H, Lymphocytes (%) (Auto) 8.0L, Monocytes (%) (Auto) 8.6, Eosinophils (%) (Auto) 0.4, Basophils (%) (Auto) 0.6, Sodium Level 143, Potassium Level 3.4L, Chloride Level 108H, Carbon Dioxide Level 24, Anion Gap 11, Blood Urea Nitrogen 26H, Creatinine 1.4H, Estimat Glomerular Filtration Rate > 60, Glucose Level 136H, Calcium Level 8.4L, Magnesium Level 1.5L, Total Bilirubin 1.1H, Direct Bilirubin 0.4H, Aspartate Amino Transf (AST/SGOT) 27, Alanine Aminotransferase ( ALT/SGPT) 18, Alkaline Phosphatase 119H, Pro-B-Type Natriuretic Peptide 5709H, Total Protein 7.3, Albumin 1.6L, Globulin 5.7, Albumin/Globulin Ratio 0.3L Current Medications Medications (Trade) Dose Ordered Sig/Nury Route PRN Reason Start Time Stop Time Status Last Admin Dose Admin Acetaminophen (Tylenol) 325 mg Q6H PRN RECTAL Temp >100.5 08/28/19 03:45 09/07/19 21:44 Acetaminophen (Tylenol) 650 mg Q4H PRN GT Mild Pain (Pain Scale 1-3) 08/28/19 06:45 09/07/19 10:44 Acetaminophen (Tylenol) 650 mg Q4H PRN GT Temp >100.5 08/28/19 06:45 09/07/19 10:44 Amantadine HCl (Symmetrel) 100 mg DAILY GT 08/28/19 09:00 09/08/19 08:59 08/28/19 08:22 Amiodarone HCl 900 mg/Dextrose 500 ml @ 0 mls/hr Q24H IV 08/29/19 03:15 09/27/19 03:14 08/28/19 04:10 Ascorbic Acid (Vitamin C) 250 mg DAILY GT 08/28/19 09:00 09/08/19 08:59 08/28/19 08:23 Folic Acid (Folate) 1 mg DAILY GT 08/28/19 09:00 09/07/19 14:29 08/28/19 08:22 Hydralazine HCl (Apresoline) 10 mg Q6H PRN GT SBP above 160 08/28/19 04:00 11/26/19 03:59 Hydralazine HCl (Apresoline) 10 mg Q6H PRN IV SBP> 160 08/28/19 03:45 11/06/19 21:44 Lisinopril (PriniviL) 20 mg Q12HR GT 08/28/19 09:00 09/07/19 20:59 08/28/19 08:23 Metoprolol Tartrate (Lopressor) 50 mg Q12HR GT 08/28/19 09:00 11/24/19 08:59 08/28/19 08:22 Multivitamins (Multivitamins) 1 tab DAILY GT 08/28/19 09:00 09/08/19 08:59 08/28/19 08:22 Pantoprazole (Protonix) 40 mg EVERY 12 HOURS IVP 08/28/19 09:00 09/08/19 22:59 08/28/19 08:21 Assessment/Plan Assessment/Plan anemia possible GIB SVT respiratory failure trach chronic encephalopathy GT site infection low K fevers better severe protein calorie malnutrition hypotension PLAN dc planning on hold cards input- beta albaro and amiodarone drip vent support feeds per gi - GT care wound care monitor HH renal to see ID follow up critical at present impression, plan, and exam edited and reviewed in detail care discussed with Isaiah Villatoro MD Aug 28, 2019 08:54
[2019-08-28] MEDS ORDERED: Pantoprazole Inj IVP SCH (09:00)
--- NOTE | 2019-08-28 09:00 | NUR ---
NURSE NOTES: Pt turned and repositioned. Oral care done. No distress noted at this time.
--- NOTE | 2019-08-28 09:08 | Nephrology Progress Note ---
Assessment/Plan Plan LEAH - Multifactorial. Monitor labs. Nonoliguric ARF. Resolving. Hypomagnesemia - correcting. Subjective Subjective More alert. Confused. Objective Objective Last 24 Hour Vital Signs Date Time Temp Pulse Resp B/P (MAP) Pulse Ox O2 Delivery O2 Flow Rate FiO2 08/28/19 08:30 139 30 153/107 (122) 99 08/28/19 08:23 141/97 08/28/19 08:22 148 141/97 08/28/19 08:00 35 08/28/19 08:00 99.2 141 29 141/97 (112) 100 08/28/19 08:00 Mechanical Ventilator 08/28/19 07:30 139 29 162/110 (127) 100 08/28/19 07:01 140 29 35 08/28/19 07:00 146 34 151/99 (116) 99 08/28/19 06:30 143 32 142/84 (103) 100 08/28/19 06:00 139 32 156/94 (114) 100 08/28/19 05:30 143 33 142/64 (90) 100 08/28/19 05:00 139 34 135/77 (96) 100 08/28/19 04:30 142 35 150/60 (90) 47 08/28/19 04:00 142 36 140/85 (103) 96 08/28/19 04:00 Mechanical Ventilator 08/28/19 04:00 35 08/28/19 04:00 135 08/28/19 03:30 164 35 162/97 (118) 95 08/28/19 02:48 151 38 35 08/28/19 02:23 143 162/97 (118) 08/28/19 02:20 162/97 08/28/19 00:00 98.4 80 24 134/90 (105) 100 08/28/19 00:00 Mechanical Ventilator 08/27/19 23:32 135 08/27/19 23:16 110 22 35 08/27/19 21:28 98.3 08/27/19 20:58 99.6 08/27/19 20:11 148/89 08/27/19 20:10 129 148/89 08/27/19 20:00 99.1 100 24 148/89 (108) 100 08/27/19 20:00 35 08/27/19 20:00 Mechanical Ventilator 08/27/19 19:07 106 26 35 08/27/19 19:02 136 08/27/19 17:11 98.8 08/27/19 16:00 113 08/27/19 16:00 100.0 105 22 152/94 (113) 100 08/27/19 16:00 Mechanical Ventilator 08/27/19 16:00 35 08/27/19 15:30 114 25 35 08/27/19 12:00 112 08/27/19 12:00 Mechanical Ventilator 08/27/19 12:00 35 08/27/19 12:00 97.7 114 22 143/97 (112) 100 08/27/19 11:02 72 23 35 08/27/19 10:00 97.7 08/27/19 09:09 121 162/103 08/27/19 09:09 162/103 Intake and Output 08/27/19 08/28/19 19:00 07:00 Intake Total 1053.26 ml 834.98 ml Output Total 600 ml 615 ml Balance 453.26 ml 219.98 ml Free Water 90 ml 50 ml IV Total 483.26 ml 349.98 ml Tube Feeding 480 ml 435 ml Output Urine Total 600 ml 615 ml # Bowel Movements 1 1 Laboratory Tests 08/27/19 16:55: Stool Occult Blood [Pending] 08/28/19 03:54: White Blood Count 11.3H, Red Blood Count 3.11L, Hemoglobin 9.8L, Hematocrit 31.0L, Mean Corpuscular Volume 99, Mean Corpuscular Hemoglobin 31.4H, Mean Corpuscular Hemoglobin Concent 31.6L, Red Cell Distribution Width 15.8H, Platelet Count 260, Mean Platelet Volume 8.2, Neutrophils (%) (Auto) 82.4H, Lymphocytes (%) (Auto) 8.0L, Monocytes (%) (Auto) 8.6, Eosinophils (%) (Auto) 0.4, Basophils (%) (Auto) 0.6, Sodium Level 143, Potassium Level 3.4L, Chloride Level 108H, Carbon Dioxide Level 24, Anion Gap 11, Blood Urea Nitrogen 26H, Creatinine 1.4H, Estimat Glomerular Filtration Rate > 60, Glucose Level 136H, Calcium Level 8.4L, Magnesium Level 1.5L, Total Bilirubin 1.1H, Direct Bilirubin 0.4H, Aspartate Amino Transf (AST/SGOT) 27, Alanine Aminotransferase ( ALT/SGPT) 18, Alkaline Phosphatase 119H, Pro-B-Type Natriuretic Peptide 5709H, Total Protein 7.3, Albumin 1.6L, Globulin 5.7, Albumin/Globulin Ratio 0.3L Height (Feet): 5 Height (Inches): 10.00 Weight (Pounds): 252 Objective On Vent. Cv RR Lungs B Librado Rubio SNT. BS + E No CCE Ashwin Young MD Aug 28, 2019 09:08
--- NOTE | 2019-08-28 10:15 | NUR ---
NURSE NOTES: Left message for Dr Young and Dr Hurt informing them of Potassium 3.4. No new orders at this time.
--- NOTE | 2019-08-28 10:18 | NUR ---
NURSE NOTES: Dr Ochoa on the unit assessing pt. Informed of + C Diff results received from Mae in the lab this morning.
--- NOTE | 2019-08-28 10:35 | NUR ---
RD ASSESSMENT & RECOMMENDATIONS SEE CARE ACTIVITY FOR COMPLETE ASSESSMENT DAILY ESTIMATED NEEDS: Needs based on Critical care, wound 79gk 22-28 kcals/kg 9917-3259 total kcals 1.25-2 g protein/kg 99-158 g total protein 25-30 mL/kg 8618-7550 total fluid mLs NUTRITION DIAGNOSIS: Increased pro needs r/t wound healing as evidenced by pt w/ multiple wounds, refer to WC nurse eval, trach and peg dep, s/p PEG re-placement, TF at goal. CURRENT TF:Glucerna 1.2 @65 ml/hr x24 hrs + Prosource qdaily ENTERAL NUTRITION RECOMMENDATIONS: Glucerna 1.2 @ 65ml/hr x 24 hrs to provide 1560ml, 1872kcal, 94g prot, 1257ml free water - Once able to resume TF, rec Glucerna 1.2 for carb control -> BGs consistently mildly elevated - Initiate Glucerna 1.2 @ 25ml/hr x 6hrs, advance 10ml q 4-6 hrs as tolerated to goal rate - Once TF well tolerated at goal, add Prosource 1pkt QD (11g pro) to better meet est pro needs. - Flush per . HOB over 30 degrees ADDITIONAL RECOMMENDATIONS: 1) Per SNF: 5'11" and 174 lbs -> Current daily wts 248-252lbs 2) Wound care: add JANE BID via TF + Zn SO4 220 mg qd x10 days 3) Maintain calibrated bed scale wts 4) Monitor lytes, replete as needed 5) Monitor BGs, need for NISS 6) Monitor renal fxn- worsening, creat 1.0-> 3.3-> now 1.4
--- NOTE | 2019-08-28 10:51 | Infectious Diseases Prog Note ---
"Assessment/Plan Assessment/Plan antibiotics : none A 1. pseudomonas | providencia pneumonia s/p rx COVID negative x 2 2. klebsiella | pseudomonas | VRE Gt site cellulitis 3. respiratory failure 4. leucocytosis resolved 5. s/p GT placement 6. C.diff colitis P 1. start GT vancomycin 2. will follow up cultures Subjective ROS Limited/Unobtainable: Yes Allergies: Coded Allergies: No Known Allergies (Unverified , 08/07/19) Objective Last 24 Hour Vital Signs Date Time Temp Pulse Resp B/P (MAP) Pulse Ox O2 Delivery O2 Flow Rate FiO2 08/28/19 10:45 118 26 35 08/28/19 10:00 132 25 151/120 (130) 93 08/28/19 09:30 127 26 144/94 (111) 100 08/28/19 09:00 129 30 147/114 (125) 100 08/28/19 08:30 139 30 153/107 (122) 99 08/28/19 08:23 141/97 08/28/19 08:22 148 141/97 08/28/19 08:00 35 08/28/19 08:00 99.2 141 29 141/97 (112) 100 08/28/19 08:00 Mechanical Ventilator 08/28/19 08:00 142 08/28/19 07:30 139 29 162/110 (127) 100 08/28/19 07:01 140 29 35 08/28/19 07:00 146 34 151/99 (116) 99 08/28/19 06:30 143 32 142/84 (103) 100 08/28/19 06:00 139 32 156/94 (114) 100 08/28/19 05:30 143 33 142/64 (90) 100 08/28/19 05:00 139 34 135/77 (96) 100 08/28/19 04:30 142 35 150/60 (90) 47 08/28/19 04:00 142 36 140/85 (103) 96 08/28/19 04:00 Mechanical Ventilator 08/28/19 04:00 35 08/28/19 04:00 135 08/28/19 03:30 164 35 162/97 (118) 95 08/28/19 02:48 151 38 35 08/28/19 02:23 143 162/97 (118) 6/29/20 02:20 162/97 08/28/19 00:00 98.4 80 24 134/90 (105) 100 08/28/19 00:00 Mechanical Ventilator 08/27/19 23:32 135 08/27/19 23:16 110 22 35 08/27/19 21:28 98.3 08/27/19 20:58 99.6 08/27/19 20:11 148/89 08/27/19 20:10 129 148/89 08/27/19 20:00 99.1 100 24 148/89 (108) 100 08/27/19 20:00 35 08/27/19 20:00 Mechanical Ventilator 08/27/19 19:07 106 26 35 08/27/19 19:02 136 08/27/19 17:11 98.8 08/27/19 16:00 113 08/27/19 16:00 100.0 105 22 152/94 (113) 100 08/27/19 16:00 Mechanical Ventilator 08/27/19 16:00 35 08/27/19 15:30 114 25 35 08/27/19 12:00 112 08/27/19 12:00 Mechanical Ventilator 08/27/19 12:00 35 08/27/19 12:00 97.7 114 22 143/97 (112) 100 08/27/19 11:02 72 23 35 Height (Feet): 5 Height (Inches): 10.00 Weight (Pounds): 252 HEENT: status post trach Respiratory/Chest: lungs clear Cardiovascular: normal rate, regular rhythm, no gallop/murmur Abdomen: soft, non tender, other - GT Extremities: no edema Microbiology Date/Time Source Procedure Growth Status 08/27/19 16:55 Stool Clostridium difficile Toxin Assay - Final Complete Laboratory Tests Test 08/27/19 16:55 08/28/19 03:54 Stool Occult Blood Pending White Blood Count 11.3 K/UL (4.8-10.8) H Red Blood Count 3.11 M/UL (4.70-6.10) L Hemoglobin 9.8 G/DL (14.2-18.0) L Hematocrit 31.0 % (42.0-52.0) L Mean Corpuscular Volume 99 FL (80-99) Mean Corpuscular Hemoglobin 31.4 PG (27.0-31.0) H Mean Corpuscular Hemoglobin Concent 31.6 G/DL (32.0-36.0) L Red Cell Distribution Width 15.8 % (11.6-14.8) H Platelet Count 260 K/UL (150-450) Mean Platelet Volume 8.2 FL (6.5-10.1) Neutrophils (%) (Auto) 82.4 % (45.0-75.0) H Lymphocytes (%) (Auto) 8.0 % (20.0-45.0) L Monocytes (%) (Auto) 8.6 % (1.0-10.0) Eosinophils (%) (Auto) 0.4 % (0.0-3.0) Basophils (%) (Auto) 0.6 % (0.0-2.0) Sodium Level 143 MMOL/L (136-145) Potassium Level 3.4 MMOL/L (3.5-5.1) L Chloride Level 108 MMOL/L (98-107) H Carbon Dioxide Level 24 MMOL/L (21-32) Anion Gap 11 mmol/L (5-15) Blood Urea Nitrogen 26 mg/dL (7-18) H Creatinine 1.4 MG/DL (0.55-1.30) H Estimat Glomerular Filtration Rate > 60 mL/min (>60) Glucose Level 136 MG/DL (74-106) H Calcium Level 8.4 MG/DL (8.5-10.1) L Magnesium Level 1.5 MG/DL (1.8-2.4) L Total Bilirubin 1.1 MG/DL (0.2-1.0) H Direct Bilirubin 0.4 MG/DL (0.0-0.3) H Aspartate Amino Transf (AST/SGOT) 27 U/L (15-37) Alanine Aminotransferase (ALT/SGPT) 18 U/L (12-78) Alkaline Phosphatase 119 U/L (46-116) H Pro-B-Type Natriuretic Peptide 5709 pg/mL (0-125) H Total Protein 7.3 G/DL (6.4-8.2) Albumin 1.6 G/DL (3.4-5.0) L Globulin 5.7 g/dL Albumin/Globulin Ratio 0.3 (1.0-2.7) L Current Medications Medications (Trade) Dose Ordered Sig/Nury Route PRN Reason Start Time Stop Time Status Last Admin Dose Admin Acetaminophen (Tylenol) 325 mg Q6H PRN RECTAL Temp >100.5 08/28/19 03:45 09/07/19 21:44 Acetaminophen (Tylenol) 650 mg Q4H PRN GT Mild Pain (Pain Scale 1-3) 08/28/19 06:45 09/07/19 10:44 Acetaminophen (Tylenol) 650 mg Q4H PRN GT Temp >100.5 08/28/19 06:45 09/07/19 10:44 Amantadine HCl (Symmetrel) 100 mg DAILY GT 08/28/19 09:00 09/08/19 08:59 08/28/19 08:22 Amiodarone HCl 900 mg/Dextrose 500 ml @ 0 mls/hr Q24H IV 08/29/19 03:15 09/27/19 03:14 08/28/19 04:10 Ascorbic Acid (Vitamin C) 250 mg DAILY GT 08/28/19 09:00 09/08/19 08:59 08/28/19 08:23 Folic Acid (Folate) 1 mg DAILY GT 08/28/19 09:00 09/07/19 14:29 08/28/19 08:22 Hydralazine HCl (Apresoline) 10 mg Q6H PRN GT SBP above 160 08/28/19 04:00 11/26/19 03:59 Hydralazine HCl (Apresoline) 10 mg Q6H PRN IV SBP> 160 08/28/19 03:45 11/06/19 21:44 Lisinopril (PriniviL) 20 mg Q12HR GT 08/28/19 09:00 09/07/19 20:59 08/28/19 08:23 Magnesium Sulfate 100 ml @ 100 mls/hr Q1H IVPB 08/28/19 10:00 08/28/19 12:59 08/28/19 09:52 Metoprolol Tartrate (Lopressor) 50 mg Q12HR GT 08/28/19 09:00 11/24/19 08:59 08/28/19 08:22 Multivitamins (Multivitamins) 1 tab DAILY GT 08/28/19 09:00 09/08/19 08:59 08/28/19 08:22 Pantoprazole (Protonix) 40 mg EVERY 12 HOURS IVP 08/28/19 09:00 09/08/19 22:59 08/28/19 08:21 Potassium Chloride (K-Dur) 20 meq ONCE ONCE GT 08/28/19 11:00 08/28/19 11:01 Jude Guerin MD Aug 28, 2019 10:51"
--- NOTE | 2019-08-28 11:06 | NUR ---
*-* INSURANCE *-* UPDATED CLINICALS HAVE BEEN FAXED TO: [facility] F: [phone] REF#[id number]
--- NOTE | 2019-08-28 12:15 | NUR ---
NURSE NOTES: Wound care nurseSean, at bedside assessing pt. Wound care done and dressings changed.
--- NOTE | 2019-08-28 12:47 | NUR ---
DRY ICE MAKER NOTE CALL MADE TO [employer] @ [phone] TO PROVIDE REPORT ON PATIENT.. VM LEFT FOR DONY FUNES REQUESTING CALL BACK. [facility] SHE SPOKE WITH CM DIRECTOR Israel BACA IN RE TO PATIENT ICU STATUS. REQUESTS FOR CLINICALS BE FAXED TO [phone]
[2019-08-28] MEDS ORDERED: dilTIAZem Premix 125mg/125ml 125 ML IVPB SCH (13:30)
[2019-08-28] MEDS ORDERED: Lidocaine 1% Plain 30 ml INJ PRN (13:30)
[2019-08-28] MEDS ORDERED: dilTIAZem HCl 25mg/5ml Inj IVP SCH ×2 (13:30→18:15)
[2019-08-28] MEDS ORDERED: Heparin1,000 units/500ml Premix(Conc:2 units/ml) IV PRN (13:30)
--- NOTE | 2019-08-28 13:45 | NUR ---
NURSE NOTES: Pt turned and repositioned for comfort. Oral care done. No distress noted at this time. Dr Fisher on the unit assessing pt. Updated him on pt's current condition. Ordered to change gtt to Cardizem.
[2019-08-28] MEDS: Vancomycin oral 125mg/2.5ml ORAL SCH ×3 (13:51→21:00)
--- NOTE | 2019-08-28 13:54 | NUR ---
RADIOLOGY DEPT., ABDOMEN X-RAY DONE.-P.DYE
--- NOTE | 2019-08-28 14:27 | Diagnostic Imaging Report ---
Indication: Abdominal distention Technique: Supine view of the abdomen Comparison: 08/18/2019 Findings: Numerous considerably distended small bowel loops are noted. This is a new finding. A small amount of gas is seen in the proximal ascending colon. There is a Thakkar catheter in place. Previously demonstrated nasogastric tube is no longer present. No masses or unusual calcifications Impression: Numerous distended small bowel loops. Main differential considerations are small bowel obstruction and ileus
--- NOTE | 2019-08-28 14:37 | NUR ---
CASE MANAGEMENT:REVIEW SI;A-FIB W/RVR. SEPSIS. RESPIRATORY FAILURE. 100.2 139 32 159/97 93% TRACH/VENT FIO2 @ 35% WBC 11.3 BUN 26 CR 1.4 MAG 1.5 T-BILI 1.1 BNP 5709 IS;AMIODARONE IV Q23 HEPARIN SUBQ Q12 DILTIAZEM IV Q24 VANCOMYCIN HT QID AMANTADINE GT QD LISINOPRIL GT Q12 LOPRESSOR GT Q12 PROTONIX IV Q12 PICC PLACEMENT TRANSFERRED TO ICU @ 0251 08/27 ICU STATUS DCP'PATIENT IS FROM [facility]
--- NOTE | 2019-08-28 15:22 | Surgery Progress Note ---
Surgery Progress Note Subjective Additional Comments low grade fevers KUB note a fib rvr now in ICU improved but with pvc Objective Last 24 Hour Vital Signs Date Time Temp Pulse Resp B/P (MAP) Pulse Ox O2 Delivery O2 Flow Rate FiO2 08/28/19 13:47 128 159/97 08/28/19 13:00 128 32 156/85 (108) 100 08/28/19 12:30 133 26 141/83 (102) 99 08/28/19 12:00 Mechanical Ventilator 08/28/19 12:00 35 08/28/19 12:00 100.2 128 30 147/112 (124) 96 08/28/19 11:30 125 27 148/89 (108) 100 08/28/19 11:00 128 29 143/96 (112) 94 08/28/19 10:45 118 26 35 08/28/19 10:30 133 29 149/87 (107) 100 08/28/19 10:00 132 25 151/120 (130) 93 08/28/19 09:30 127 26 144/94 (111) 100 08/28/19 09:00 129 30 147/114 (125) 100 08/28/19 08:30 139 30 153/107 (122) 99 08/28/19 08:23 141/97 08/28/19 08:22 148 141/97 08/28/19 08:00 35 08/28/19 08:00 99.2 141 29 141/97 (112) 100 08/28/19 08:00 Mechanical Ventilator 08/28/19 08:00 142 08/28/19 07:30 139 29 162/110 (127) 100 08/28/19 07:01 140 29 35 08/28/19 07:00 146 34 151/99 (116) 99 08/28/19 06:30 143 32 142/84 (103) 100 08/28/19 06:00 139 32 156/94 (114) 100 08/28/19 05:30 143 33 142/64 (90) 100 08/28/19 05:00 139 34 135/77 (96) 100 08/28/19 04:30 142 35 150/60 (90) 47 08/28/19 04:00 142 36 140/85 (103) 96 08/28/19 04:00 Mechanical Ventilator 08/28/19 04:00 35 08/28/19 04:00 135 08/28/19 03:30 164 35 162/97 (118) 95 08/28/19 02:48 151 38 35 08/28/19 02:23 143 162/97 (118) 08/28/19 02:20 162/97 08/28/19 00:00 98.4 80 24 134/90 (105) 100 08/28/19 00:00 Mechanical Ventilator 08/27/19 23:32 135 08/27/19 23:16 110 22 35 08/27/19 21:28 98.3 08/27/19 20:58 99.6 08/27/19 20:11 148/89 08/27/19 20:10 129 148/89 08/27/19 20:00 99.1 100 24 148/89 (108) 100 08/27/19 20:00 35 08/27/19 20:00 Mechanical Ventilator 08/27/19 19:07 106 26 35 08/27/19 19:02 136 08/27/19 17:11 98.8 08/27/19 16:00 113 08/27/19 16:00 100.0 105 22 152/94 (113) 100 08/27/19 16:00 Mechanical Ventilator 08/27/19 16:00 35 08/27/19 15:30 114 25 35 I&O Intake and Output 08/27/19 08/28/19 19:00 07:00 Intake Total 1053.26 ml 834.98 ml Output Total 600 ml 615 ml Balance 453.26 ml 219.98 ml Free Water 90 ml 50 ml IV Total 483.26 ml 349.98 ml Tube Feeding 480 ml 435 ml Output Urine Total 600 ml 615 ml # Bowel Movements 1 1 Dressing: other Wound: other Drains: other Cardiovascular: RSR Respiratory: decreased breath sounds Abdomen: soft, distended, non-tender, decreased bowel sounds Extremities: no edema, no tenderness, no cyanosis Laboratory Tests Test 08/27/19 16:55 08/28/19 03:54 Stool Occult Blood Positive (NEGATIVE) White Blood Count 11.3 K/UL (4.8-10.8) H Red Blood Count 3.11 M/UL (4.70-6.10) L Hemoglobin 9.8 G/DL (14.2-18.0) L Hematocrit 31.0 % (42.0-52.0) L Mean Corpuscular Volume 99 FL (80-99) Mean Corpuscular Hemoglobin 31.4 PG (27.0-31.0) H Mean Corpuscular Hemoglobin Concent 31.6 G/DL (32.0-36.0) L Red Cell Distribution Width 15.8 % (11.6-14.8) H Platelet Count 260 K/UL (150-450) Mean Platelet Volume 8.2 FL (6.5-10.1) Neutrophils (%) (Auto) 82.4 % (45.0-75.0) H Lymphocytes (%) (Auto) 8.0 % (20.0-45.0) L Monocytes (%) (Auto) 8.6 % (1.0-10.0) Eosinophils (%) (Auto) 0.4 % (0.0-3.0) Basophils (%) (Auto) 0.6 % (0.0-2.0) Sodium Level 143 MMOL/L (136-145) Potassium Level 3.4 MMOL/L (3.5-5.1) L Chloride Level 108 MMOL/L (98-107) H Carbon Dioxide Level 24 MMOL/L (21-32) Anion Gap 11 mmol/L (5-15) Blood Urea Nitrogen 26 mg/dL (7-18) H Creatinine 1.4 MG/DL (0.55-1.30) H Estimat Glomerular Filtration Rate > 60 mL/min (>60) Glucose Level 136 MG/DL (74-106) H Calcium Level 8.4 MG/DL (8.5-10.1) L Magnesium Level 1.5 MG/DL (1.8-2.4) L Total Bilirubin 1.1 MG/DL (0.2-1.0) H Direct Bilirubin 0.4 MG/DL (0.0-0.3) H Aspartate Amino Transf (AST/SGOT) 27 U/L (15-37) Alanine Aminotransferase (ALT/SGPT) 18 U/L (12-78) Alkaline Phosphatase 119 U/L (46-116) H Pro-B-Type Natriuretic Peptide 5709 pg/mL (0-125) H Total Protein 7.3 G/DL (6.4-8.2) Albumin 1.6 G/DL (3.4-5.0) L Globulin 5.7 g/dL Albumin/Globulin Ratio 0.3 (1.0-2.7) L Plan Problems: (1) Anemia Assessment & Plan: 08/22 acute brisk pulsatile active bleeding from the G-tube site. Significant for blood identified on the dressings and in the patient's bed therefore immediate hemostasis indicated and recommended. At the bedside patient was given pain medication morphine IV and the G-tube site incision was extended and postop bleeding identified from around the level of the deep subcutaneous tissue. 2 [id number] silk sutures were placed and hemostasis was obtained. The skin incision was reapproximated using 0 silk interrupted sutures. Patient taught procedure well. Hemostasis noted. Labs ordered will monitor renal improved a fib rvr in ICU for monitoring (2) Unstageable decubitus ulcer Assessment & Plan: Pt presented on admission with multiple Pressure Injuries. Pt has a Tracheostomy and no areas of skin concerns noted under tracheal collar. Unstageable Sacral Pressure Injury(L)9.5cm x (W)10cm. Base of wound is 75% mixed slough and eschar,25% carolynn, Edges adherent with surrounding purple and maroon indurated borders. No odor or exudate noted. DTPI L Heel (L)3.7cm x (W)4.5cm. Base of wound is maroon and indurated with surrounding non-Blanching erythema. Callused skin periwound. Reabsorbing DTPI [place] L Foot (L)3.3cm x (W)2.5cm. Base of Pressure Injury is maroon but dry. No erythema or fluctuance periwound. DTPI Lateral L 1st metatarsal(L)1.5cm x (W)2cm. Base of wound is maroon and indurated.Callused skin periwound. DTPI Lateral R Heel (L)4.4cm x (W)6cm. Base of wound is indurated ,purple with surrounding maroon and fluctuant borders.Callusing periwound. DTPI R Hallux (L)1.8cm x (W)1.9cm. Base of wound is indurated and purple. Callusing periwound. DTPI Lateral R 1st metatarsal(L)2cm x (W)2.7cm. Base of wound is indurated and maroon. Callusing periwound. Tx.Plan: Cleanse Sacral wound with Saline. Apply TheraHoney. Apply Moisture Barrier Paste periwound. Cover with Optifoam drsg. Change every 3 days and prn. Apply Cavilon Skin Barrier to wounds L L Heel , L st metatarsal,Dorsal L Foot. Cover each Site with Optifoam drsg. Change every 7 days and prn. Apply Cavilon Skin Barrier to R Heel, R Hallux, R 1st metatarsal. Cover each site with Optifoam drsg. Change every 7 days and prn. APM/KHOA Mattress. Reposition at least every 2hours or as tolerated. Off-Load Heels with Pillows. (3) Leaking PEG tube Assessment & Plan: prior peg removed plan new placement soon will monitor site drainage noted packing placed Minimal drainage from prior G-tube site discussed with nursing about packing and dressings will continue current care plan plan for PEG tube once improved s/p peg 08/21 tf d/c plan Lung bases: Atelectasis at the lung bases. Liver: Unremarkable. No mass. Gallbladder and bile ducts: Unremarkable. No calcified stones. No ductal dilation. Pancreas: Unremarkable. No mass. No ductal dilation. Spleen: Unremarkable. No splenomegaly. Adrenals: Unremarkable. No mass. Kidneys and ureters: Nonobstructing stone in the lower pole of the right kidney. Stomach and bowel: Tract from a recent percutaneous gastrostomy tube which is healing in the subcutaneous fat. Surrounding inflammatory changes but no abscess. Severe colonic diverticulosis within the sigmoid colon with mural hypertrophy however no surrounding inflammatory changes to suggest acute diverticulitis. Underlying malignancy not excluded. No obstruction. Intraperitoneal space: Unremarkable. No free air. No significant fluid collection. Bones/joints: No acute fracture. No dislocation. Soft tissues: Fat stranding in the ventral abdomen. Vasculature: Unremarkable. No abdominal aortic aneurysm. Lymph nodes: Unremarkable. No enlarged lymph nodes. Tubes, lines and devices: Thakkar catheter within the bladder. IMPRESSION: 1. Severe colonic diverticulosis within the sigmoid colon with mural hypertrophy however no surrounding inflammatory changes to suggest acute diverticulitis. Underlying malignancy not excluded. 2. Tract from a recent percutaneous gastrostomy tube which is healing in the subcutaneous fat. Surrounding inflammatory changes but no abscess. (4) Person under investigation for COVID-19 Assessment & Plan: There is a tracheostomy. Calcified granuloma is seen in the right midlung. Granulomatous calcified nodes are seen in the left aortopulmonary window. No definite infiltrates, effusions, congestion. The heart size is upper limits normal. Impression: No definite acute abnormality Evidence of old granulomatous disease Homero Cummings Aug 28, 2019 15:22
--- NOTE | 2019-08-28 15:25 | NUR ---
NURSE NOTES: Pt given Hydralazine 10mg for B/P 175/136. Will monitor.
--- NOTE | 2019-08-28 17:00 | NUR ---
NURSE NOTES: Lt upper arm PICC placed by Dr Li. Consent obtained for pt's granddaughter. Pt tolerated procedure well.
--- NOTE | 2019-08-28 17:15 | NUR ---
RADIOLOGY NOTE: LEFT UPPER EXTREMITY PICC LINE PLACED BY DR. GAINES AT 1648 HRS. FA
--- NOTE | 2019-08-28 17:19 | Brief Operative Note ---
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
--- NOTE | 2019-08-28 17:23 | Diagnostic Imaging Report ---
Indications: Needs long-term IV access Technique: Procedure performed at bedside. Procedural timeout performed. Ultrasound confirms patent compressible left basilic vein. Total sterile technique, including sterile probe cover and sterile gel, sterile gloves, hand hygiene, hat, mask,, sterile gown, large sterile drape, and preparation with 2% chlorhexidine utilized. Local anesthesia with 1% lidocaine. Under real-time ultrasound guidance, puncture basilic vein using 21-gauge needle, passage 0.018 guidewire, exchange for 4 Polish peel-away sheath. 4 Polish Bard dual-lumen power PICC cut to 48 cm. It was inserted through the peel-away sheath. Peel-away sheath and guidewire removed. Catheter fixed to the skin. Both catheter ports aspirated and flushed. Patient tolerated procedure well, without immediate complication. Followup chest x-ray obtained, documents catheter tip position at the cavoatrial junction Impression: Successful bedside placement of left arm PICC under sonographic guidance, as described above.
[2019-08-28] MEDS ORDERED: LORazepam Inj 2mg/ml 1ml IV PRN (18:20)
--- NOTE | 2019-08-28 18:30 | NUR ---
NURSE NOTES: Ativan 1MG IVP given for restlessness and tachypnea. Pt fighting the vent and breathing in the 40's
--- NOTE | 2019-08-28 19:12 | NUR ---
HAND-OFF: Report given to KEHINDE Hall.
--- NOTE | 2019-08-28 19:50 | General Progress Note ---
Assessment/Plan Assessment/Plan: Assessment - Arterial GT site bleeding - repaired - Anemia -acute and chronic - C difficile - Ileus / abd distention - GT migration - removed - Abdominal wall induration and discharge, improved - anemia - OB (+) stools - due to ulcerative gastritis, no colonoscopy per DPOA - s/p Trach - Macrocytic indicies - normal B12 and folate - poor prognosis Recommendations - PPI - transfuse PRN - Hold TF - off abx per ID - follow exam and labs - supportive care Subjective Allergies: Coded Allergies: No Known Allergies (Unverified , 08/07/19) Subjective Above noted patient seen this [facility] d/w RN abdomen distended d/w radiology - dilated loops of small bowel, likely ileus C Diff (+) on Rx Objective Last 24 Hour Vital Signs Date Time Temp Pulse Resp B/P (MAP) Pulse Ox O2 Delivery O2 Flow Rate FiO2 08/28/19 19:00 109 33 99/54 (69) 94 08/28/19 18:32 108 31 147/76 (99) 94 08/28/19 18:30 111 164/101 08/28/19 18:00 129 33 121/88 (99) 85 08/28/19 17:30 119 36 121/88 (99) 98 08/28/19 17:00 118 29 164/101 (122) 100 08/28/19 16:30 112 25 120/54 (76) 100 08/28/19 16:00 99.4 125 30 193/116 (141) 90 08/28/19 16:00 35 08/28/19 16:00 Mechanical Ventilator 08/28/19 16:00 101 08/28/19 15:42 108 31 183/124 (143) 87 08/28/19 15:30 111 36 189/118 (141) 98 08/28/19 15:23 175/136 08/28/19 15:12 88 28 175/136 (149) 96 08/28/19 15:02 103 39 35 08/28/19 15:00 93 28 193/80 (117) 100 08/28/19 14:30 87 29 160/72 (101) 100 08/28/19 14:00 108 27 122/61 (81) 100 08/28/19 13:47 128 159/97 08/28/19 13:30 134 26 159/97 (117) 100 08/28/19 13:00 128 32 156/85 (108) 100 08/28/19 12:30 133 26 141/83 (102) 99 08/28/19 12:00 119 08/28/19 12:00 Mechanical Ventilator 08/28/19 12:00 35 08/28/19 12:00 100.2 128 30 147/112 (124) 96 08/28/19 11:30 125 27 148/89 (108) 100 08/28/19 11:00 128 29 143/96 (112) 94 08/28/19 10:45 118 26 35 08/28/19 10:30 133 29 149/87 (107) 100 08/28/19 10:00 132 25 151/120 (130) 93 08/28/19 09:30 127 26 144/94 (111) 100 08/28/19 09:00 129 30 147/114 (125) 100 08/28/19 08:30 139 30 153/107 (122) 99 08/28/19 08:23 141/97 08/28/19 08:22 148 141/97 08/28/19 08:00 35 08/28/19 08:00 99.2 141 29 141/97 (112) 100 08/28/19 08:00 Mechanical Ventilator 08/28/19 08:00 142 08/28/19 07:30 139 29 162/110 (127) 100 08/28/19 07:01 140 29 35 08/28/19 07:00 146 34 151/99 (116) 99 08/28/19 06:30 143 32 142/84 (103) 100 08/28/19 06:00 139 32 156/94 (114) 100 08/28/19 05:30 143 33 142/64 (90) 100 08/28/19 05:00 139 34 135/77 (96) 100 08/28/19 04:30 142 35 150/60 (90) 47 08/28/19 04:00 142 36 140/85 (103) 96 08/28/19 04:00 Mechanical Ventilator 08/28/19 04:00 35 08/28/19 04:00 135 08/28/19 03:30 164 35 162/97 (118) 95 08/28/19 02:48 151 38 35 08/28/19 02:23 143 162/97 (118) 08/28/19 02:20 162/97 08/28/19 00:00 98.4 80 24 134/90 (105) 100 08/28/19 00:00 Mechanical Ventilator 08/27/19 23:32 135 08/27/19 23:16 110 22 35 08/27/19 21:28 98.3 08/27/19 20:58 99.6 08/27/19 20:11 148/89 08/27/19 20:10 129 148/89 08/27/19 20:00 99.1 100 24 148/89 (108) 100 08/27/19 20:00 35 08/27/19 20:00 Mechanical Ventilator Intake and Output 08/27/19 08/28/19 19:00 07:00 Intake Total 1053.26 ml 834.98 ml Output Total 600 ml 615 ml Balance 453.26 ml 219.98 ml Free Water 90 ml 50 ml IV Total 483.26 ml 349.98 ml Tube Feeding 480 ml 435 ml Output Urine Total 600 ml 615 ml # Bowel Movements 1 1 Laboratory Tests 08/28/19 03:54: White Blood Count 11.3H, Red Blood Count 3.11L, Hemoglobin 9.8L, Hematocrit 31.0L, Mean Corpuscular Volume 99, Mean Corpuscular Hemoglobin 31.4H, Mean Corpuscular Hemoglobin Concent 31.6L, Red Cell Distribution Width 15.8H, Platelet Count 260, Mean Platelet Volume 8.2, Neutrophils (%) (Auto) 82.4H, Lymphocytes (%) (Auto) 8.0L, Monocytes (%) (Auto) 8.6, Eosinophils (%) (Auto) 0.4, Basophils (%) (Auto) 0.6, Sodium Level 143, Potassium Level 3.4L, Chloride Level 108H, Carbon Dioxide Level 24, Anion Gap 11, Blood Urea Nitrogen 26H, Creatinine 1.4H, Estimat Glomerular Filtration Rate > 60, Glucose Level 136H, Calcium Level 8.4L, Magnesium Level 1.5L, Total Bilirubin 1.1H, Direct Bilirubin 0.4H, Aspartate Amino Transf (AST/SGOT) 27, Alanine Aminotransferase ( ALT/SGPT) 18, Alkaline Phosphatase 119H, Pro-B-Type Natriuretic Peptide 5709H, Total Protein 7.3, Albumin 1.6L, Globulin 5.7, Albumin/Globulin Ratio 0.3L Height (Feet): 5 Height (Inches): 10.00 Weight (Pounds): 252 Objective Obese AA Man NCAT (+) Trach coarse BS RR Abd Healing prior GT site, some erythema around new GT site distended abdomen trace edema non interactive Rubia Hawk MD Aug 28, 2019 19:50
[2019-08-28] MEDS: Dyna-Hex 2% Top Sol 2oz TOPIC SCH (20:00)
[2019-08-28] MEDS ORDERED: D5 1/2NS 1,000 ML IV SCH (20:00)
--- NOTE | 2019-08-28 20:40 | NUR ---
NURSE NOTES: Pts vomited lg amt of yellowish fdg like vomitus approximately over 300ml, abdomen still distended,connected GT to suction and 200ml yellowish liquid came out. Pts bp 91/55, ST in and out Afib 100s, RR 44/min 02 sat 91 %, pts had severe SOB , stat blood gas and cxr were obtained, notify Dr Hurt for pts condition , abg and cxr result.Md ordered to notify Dr Hawk with pts vomiting
[2019-08-28] MEDS: Heparin 5000 units/ml inj SUBQ SCH (21:00)
--- NOTE | 2019-08-28 21:49 | Diagnostic Imaging Report ---
EXAM: XR Chest, 1 View CLINICAL HISTORY: DYSPNEA TECHNIQUE: Frontal view of the chest. COMPARISON: No relevant prior studies available. FINDINGS: Lungs: There is airspace consolidation in the medial right lung base. Patchy ill-defined airspace opacity is present as well as left lung base. Pleural space: Unremarkable. No pneumothorax. Heart: Unremarkable. No cardiomegaly. Mediastinum: Unremarkable. Bones/joints: Unremarkable. Tubes, lines and devices: Endotracheal intubation or tracheostomy tube with ET tube terminating 7.9 cm above the rena. Left PICC line present with the tip near the cavoatrial junction. IMPRESSION: Bibasilar pneumonia with airway support device terminating nearly 8 cm above the rena..
--- NOTE | 2019-08-28 22:00 | NUR ---
NURSE NOTES: dr garrison was notify bp 65/30 with order 15oo ns bolus total done
--- NOTE | 2019-08-28 22:35 | NUR ---
NURSE NOTES: Dr Hawk been notified with pts vomiting, with orders given, pls see orders.
[2019-08-29] VITALS (88 sets, daily range): BP systolic 44–196; BP diastolic 16–102
--- NOTE | 2019-08-29 | NUR ---
NURSE NOTES: Bp 77/51, SR in and out AFib on the 90s, NS bolus on progress.
--- NOTE | 2019-08-29 02:00 | NUR ---
NURSE NOTES: Complete bed bath with bed changed was done.
[2019-08-29] MEDS ORDERED: Norepinephrine 4mg/NS Premix 250 ML IV SCH ×2 (03:00)
--- NOTE | 2019-08-29 03:00 | Progress Note ---
DATE: 08/28/2019 CARDIOLOGY PROGRESS NOTE SUBJECTIVE: Condition continues to deteriorate. Patient remains critical and guarded. He has been on IV amiodarone. He continues to have incessant rapid atrial arrhythmias, namely atrial fibrillation. He has not responded to IV amiodarone for over 24 hours. PHYSICAL EXAMINATION: GENERAL: Ventilated via trach. LUNGS: Bilateral breath sounds with few rhonchi. HEART: Irregularly irregular rhythm. Rapid rate. Normal S1, S2. ABDOMEN: Soft. G-tube intact. EXTREMITIES: Trace dependent edema. LABORATORY DATA: White count 11, hemoglobin 9.8. ABG 7.45, 29, 79. Sodium 143, potassium 3.4, BUN 26, creatinine 1.4, bicarb 24, magnesium 1.5. Pro-natriuretic peptide 5700. IMPRESSION: 1. Incessant rapid atrial fibrillation. 2. Sepsis. 3. Respiratory failure. 4. Acute on chronic diastolic congestive heart failure. 5. Acute myocardial ischemia. 6. Hypokalemia. 7. Hypomagnesemia. 8. Acute renal failure, improved. 9. Hypertensive heart disease with labile blood pressure. PLAN: 1. Diuresis. 2. Potassium and magnesium replacement, the later intravenously. 3. IV amiodarone drip. Loading drip to continue. 4. IV Cardizem drip for rate control emergently. 5. ICU monitoring. Augustine Fisher M.D. DR: LUKASZ JOB#: [id number] CC:
[2019-08-29] MEDS ORDERED: Norepinephrine 4mg/NS Premix 250 ML ONE (03:04)
[2019-08-29] MEDS ORDERED: Amiodarone 900 MG in D5W 500ml 482 ML IV SCH ×2 (03:15→18:30)
[2019-08-29] MEDS: Norepinephrine 4mg/NS Premix 250 ML IV SCH ×2 (03:27→05:55)
--- NOTE | 2019-08-29 03:33 | NUR ---
NURSE NOTES:dr garrison was notify bp 64 /30 and n0 urine out with order levo drip stared 30mcg /min
--- NOTE | 2019-08-29 04:00 | NUR ---
NURSE NOTES: BP 141/64 st 113/MIN IN AND out Afib , Levophed at 20mcg/min at this time.
--- NOTE | 2019-08-29 06:13 | NUR ---
NURSE NOTES: Levophed drip at 10mcg/min. Bp >90s. SR in and out Afib on the 90s
--- NOTE | 2019-08-29 06:40 | NUR ---
pt. coded, after becoming bradycardic that lead to asystole. cpr was given and vent's fi02 is @ 100%. Pt. was able to make it. will continue to monitor pt.
--- NOTE | 2019-08-29 07:16 | NUR ---
NURSE NOTES: Received report from KEHINDE Hall, Pt observed laying in bed with eyes closed. Pt is lethargic at this time, opens eyes for a short period when saying his name. Not following commands at this time. Left sided weakness noted. Pt has a G-tube, connected to low intermittent suction. Pt is NPO. Thakkar intact and draining minimal yellow urine to urometer. Pt is Trach to vent, Portex 8, vent settings-AC14, TV 450, Fio2 @35% and peep 5- no distress noted. Lt. AC #20G running D5 1/2NS @100mL/hr. Pt has a LATOYA PICC, dressing clean, dry, and intact, running Amiodarone 0.5mg/min and Levophed 10mcg/min. Pt received and maintained on Rt. wrist restraint for safety, pulse is palpable and skin is intact. HOB elevated- aspiration precautions observed, bed alarm on, side rails up x3 and safety brakes engaged, call light within easy reach, will continue with plan of care.
--- NOTE | 2019-08-29 07:19 | NUR ---
HAND-OFF: Report given to homero schneider using sbar .
--- NOTE | 2019-08-29 08:42 | Pulmonology Progress Note ---
Subjective ROS Limited/Unobtainable: Yes Constitutional: Reports: fever, other - Wc=488.2 in am Allergies: Coded Allergies: No Known Allergies (Unverified , 08/07/19) Subjective remains ill moved to ICU hypotensive overnight started on amio drip for SVT renal function with some improvement vitals noted Objective Last 24 Hour Vital Signs Date Time Temp Pulse Resp B/P (MAP) Pulse Ox O2 Delivery O2 Flow Rate FiO2 08/29/19 08:00 Mechanical Ventilator 08/29/19 08:00 35 08/29/19 07:30 94 31 91/24 (46) 98 08/29/19 07:15 92 30 95/16 (42) 99 08/29/19 07:00 94 32 94/34 (54) 98 08/29/19 06:45 91 34 95/29 (51) 97 08/29/19 06:30 92 35 93/63 (73) 97 08/29/19 06:15 93 40 103/45 (64) 95 08/29/19 06:00 95 35 93/31 (51) 97 08/29/19 05:55 131/56 08/29/19 05:45 105 28 131/102 (112) 90 08/29/19 05:30 113 31 108/67 (81) 97 08/29/19 05:30 104 32 116/47 (70) 97 08/29/19 05:15 105 31 108/67 (81) 97 08/29/19 05:00 107 27 108/47 (67) 97 08/29/19 04:45 110 30 119/23 (55) 97 08/29/19 04:30 126 27 120/47 (71) 98 08/29/19 04:15 113 29 141/63 (89) 98 08/29/19 04:00 Mechanical Ventilator 08/29/19 04:00 113 08/29/19 04:00 35 08/29/19 04:00 98.4 112 32 137/97 (110) 99 08/29/19 03:45 114 38 150/28 (68) 99 08/29/19 03:36 107 40 100 08/29/19 03:30 107 31 122/49 (73) 100 08/29/19 03:27 64/30 08/29/19 03:00 98 24 72/30 (44) 100 08/29/19 02:35 99 28 66/34 (45) 100 08/29/19 02:30 102 32 80/49 (59) 100 08/29/19 02:00 99 31 94/66 (75) 100 08/29/19 01:30 98 30 104/78 (87) 100 08/29/19 01:00 98 24 104/40 (61) 100 08/29/19 00:30 98 30 106/53 (70) 08/29/19 00:13 96 37 104/49 (67) 100 08/29/19 00:12 94 33 77/51 (60) 100 08/29/19 00:00 35 08/29/19 00:00 104 08/29/19 00:00 Mechanical Ventilator 08/29/19 00:00 97.8 92 38 68/47 (54) 100 08/28/19 23:42 88 39 100 08/28/19 23:28 94 38 89/75 (80) 08/28/19 23:26 93 40 65/41 (49) 97 08/28/19 23:17 88 40 58/37 (44) 08/28/19 23:15 90 38 61/42 (48) 08/28/19 23:13 89 40 58/34 (42) 08/28/19 23:03 89 40 64/43 (50) 100 08/28/19 23:00 93 41 54/35 (41) 100 08/28/19 22:35 90 35 107/86 (93) 99 08/28/19 22:34 90 34 70/39 (49) 08/28/19 22:32 91 35 62/42 (49) 08/28/19 22:13 101 91/55 08/28/19 22:00 105 38 91/55 (67) 91 08/28/19 21:00 123 46 91/54 (66) 08/28/19 21:00 91/55 08/28/19 20:30 115 35 100/54 (69) 96 08/28/19 20:00 115 35 126/72 (90) 93 08/28/19 20:00 Mechanical Ventilator 08/28/19 20:00 35 08/28/19 20:00 97 08/28/19 19:45 121 44 35 08/28/19 19:30 98.8 124 40 137/80 (99) 97 08/28/19 19:00 109 33 99/54 (69) 94 08/28/19 18:32 108 31 147/76 (99) 94 08/28/19 18:30 111 164/101 08/28/19 18:00 129 33 121/88 (99) 85 08/28/19 17:30 119 36 121/88 (99) 98 08/28/19 17:00 118 29 164/101 (122) 100 08/28/19 16:30 112 25 120/54 (76) 100 08/28/19 16:00 99.4 125 30 193/116 (141) 90 08/28/19 16:00 35 08/28/19 16:00 Mechanical Ventilator 08/28/19 16:00 101 08/28/19 15:42 108 31 183/124 (143) 87 08/28/19 15:30 111 36 189/118 (141) 98 08/28/19 15:23 175/136 08/28/19 15:12 88 28 175/136 (149) 96 08/28/19 15:02 103 39 35 08/28/19 15:00 93 28 193/80 (117) 100 08/28/19 14:30 87 29 160/72 (101) 100 08/28/19 14:00 108 27 122/61 (81) 100 08/28/19 13:47 128 159/97 08/28/19 13:30 134 26 159/97 (117) 100 08/28/19 13:00 128 32 156/85 (108) 100 08/28/19 12:30 133 26 141/83 (102) 99 08/28/19 12:00 119 08/28/19 12:00 Mechanical Ventilator 08/28/19 12:00 35 08/28/19 12:00 100.2 128 30 147/112 (124) 96 08/28/19 11:30 125 27 148/89 (108) 100 08/28/19 11:00 128 29 143/96 (112) 94 08/28/19 10:45 118 26 35 08/28/19 10:30 133 29 149/87 (107) 100 08/28/19 10:00 132 25 151/120 (130) 93 08/28/19 09:30 127 26 144/94 (111) 100 08/28/19 09:00 129 30 147/114 (125) 100 Intake and Output 08/28/19 08/29/19 19:00 07:00 Intake Total 1378.97 ml 1834.64 ml Output Total 525 ml 1410 ml Balance 853.97 ml 424.64 ml IV Total 338.97 ml 1834.64 ml Tube Feeding 780 ml 0 ml Other 260 ml Output Urine Total 525 ml 210 ml Emesis 1200 ml Objective WDWN trach reduced breath sounds bilaterally without rhonchi or wheeze [id number] tachy without MRG NABS nontender no CCE reduced LOC Microbiology Date/Time Source Procedure Growth Status 08/27/19 16:55 Stool Clostridium difficile Toxin Assay - Final Complete Laboratory Tests 08/28/19 21:10: Arterial Blood pH 7.446, Arterial Blood Partial Pressure CO2 29.0L, Arterial Blood Partial Pressure O2 78.7, Arterial Blood HCO3 19.5L, Arterial Blood Oxygen Saturation 95.7, Arterial Blood Base Excess -3.5L, Álvaro Test Positive 08/29/19 05:22: POC Whole Blood Glucose [Pending] Current Medications Medications (Trade) Dose Ordered Sig/Nury Route PRN Reason Start Time Stop Time Status Last Admin Dose Admin Acetaminophen (Tylenol) 325 mg Q6H PRN RECTAL Temp >100.5 08/28/19 03:45 09/07/19 21:44 Acetaminophen (Tylenol) 650 mg Q4H PRN GT Mild Pain (Pain Scale 1-3) 08/28/19 06:45 09/07/19 10:44 Acetaminophen (Tylenol) 650 mg Q4H PRN GT Temp >100.5 08/28/19 06:45 09/07/19 10:44 Amantadine HCl (Symmetrel) 100 mg DAILY GT 08/28/19 09:00 09/08/19 08:59 08/28/19 08:22 Amiodarone HCl 900 mg/Dextrose 500 ml @ 16.66 mls/ hr Q24H IV 08/28/19 18:30 08/29/19 18:29 08/28/19 18:55 Ascorbic Acid (Vitamin C) 250 mg DAILY GT 08/28/19 09:00 09/08/19 08:59 08/28/19 08:23 Chlorhexidine Gluconate (Milagros-Hex 2%) 1 applic DAILY@2000 TOPIC 08/28/19 20:00 11/26/19 19:59 08/28/19 20:00 Dextrose/Sodium Chloride 1,000 ml @ 50 mls/hr Q20H IV 08/29/19 08:00 09/28/19 19:59 Folic Acid (Folate) 1 mg DAILY GT 08/28/19 09:00 09/07/19 14:29 08/28/19 08:22 Heparin Sodium (Porcine) (Heparin 5000 units/ml) 5,000 units EVERY 12 HOURS SUBQ 08/28/19 21:00 10/12/19 20:59 Heparin Sodium/ Sodium Chloride (Heparin 1000 units/500ml Premix) 1,000 unit ONCE PRN IV picc line placement 08/28/19 13:30 08/30/19 13:29 Hydralazine HCl (Apresoline) 10 mg Q6H PRN GT SBP above 160 08/28/19 04:00 11/26/19 03:59 Hydralazine HCl (Apresoline) 10 mg Q6H PRN IV SBP> 160 08/28/19 03:45 11/06/19 21:44 08/28/19 15:23 Lidocaine HCl (Xylocaine 1% 30ml) 30 ml ONCE PRN INJ picc line placement 08/28/19 13:30 08/30/19 13:29 Lisinopril (PriniviL) 20 mg Q12HR GT 08/28/19 09:00 09/07/19 20:59 08/28/19 21:00 Lorazepam (Ativan 2mg/ml 1ml) 1 mg Q2H PRN IV For Anxiety 08/28/19 18:20 09/04/19 18:19 08/28/19 18:30 Metoprolol Tartrate (Lopressor) 50 mg Q12HR GT 08/28/19 09:00 11/24/19 08:59 08/28/19 22:13 Metronidazole 100 ml @ 100 mls/hr Q8HR IVPB 08/28/19 22:45 09/04/19 22:44 08/29/19 05:53 Multivitamins (Multivitamins) 1 tab DAILY GT 08/28/19 09:00 09/08/19 08:59 08/28/19 08:22 Norepinephrine Bitartrate 250 ml @ 0 mls/hr Q24H IV 08/29/19 04:00 11/27/19 03:59 08/29/19 05:55 Norepinephrine Bitartrate 8 mg/ Dextrose 500 ml @ 0 mls/hr Q24H IV 08/29/19 07:45 09/28/19 07:44 Pantoprazole (Protonix) 40 mg DAILY IVP 08/29/19 09:00 09/08/19 22:59 Vancomycin HCl (Firvanq) 125 mg FOUR TIMES A DAY ORAL 08/28/19 13:00 09/04/19 12:59 08/28/19 21:00 Assessment/Plan Assessment/Plan anemia SVT respiratory failure trach chronic encephalopathy GT site infection with replacement low K severe protein calorie malnutrition hypotension PLAN pressors hold antihypertensives vent support feeds per gi - GT care wound care monitor renal to see ID follow up critical at present ICU care needed critical impression, plan, and exam edited and reviewed in detail care discussed with Isaiah Villatoro MD Aug 29, 2019 08:42
[2019-08-29] MEDS: Lisinopril 20mg tab GT SCH ×2 (09:00→20:56)
[2019-08-29] MEDS: Metoprolol Tartrate 50mg tab GT SCH ×2 (09:00→20:55)
--- NOTE | 2019-08-29 09:00 | NUR ---
NURSE NOTES: Dr Hawk at bedside assessing pt. Updated him on pt's current condition. No distress noted. Pt's G Tube remains to low intermittent suction.
[2019-08-29] MEDS: Amantadine 100mg cap GT SCH (09:04)
[2019-08-29] MEDS: Ascorbic Acid 500mg tab GT SCH (09:04)
[2019-08-29] MEDS: Pantoprazole Inj IVP SCH (09:04)
[2019-08-29] MEDS: D5 1/2NS 1,000 ML IV SCH (09:05)
[2019-08-29] MEDS: Vancomycin oral 125mg/2.5ml ORAL SCH ×4 (09:07→20:57)
[2019-08-29] MEDS: Heparin 5000 units/ml inj SUBQ SCH ×2 (09:09→20:57)
--- NOTE | 2019-08-29 09:21 | General Progress Note ---
Assessment/Plan Assessment/Plan: Assessment - Arterial GT site bleeding - repaired - Anemia -acute and chronic - C difficile - Ileus / abd distention - improved with bowel rest - GT migration - removed - Abdominal wall induration and discharge, improved - anemia - OB (+) stools - due to ulcerative gastritis, no colonoscopy per DPOA - s/p Trach - Macrocytic indicies - normal B12 and folate - poor prognosis Recommendations - PPI - transfuse PRN - Hold TF - repeat KUB - off abx per ID - follow exam and labs - supportive care Subjective Allergies: Coded Allergies: No Known Allergies (Unverified , 08/07/19) Subjective Above noted patient seen this am in ICU d/w RN abdomen less distended GT drainage stopped, but did put out some feeds no BM Objective Last 24 Hour Vital Signs Date Time Temp Pulse Resp B/P (MAP) Pulse Ox O2 Delivery O2 Flow Rate FiO2 08/29/19 09:05 94/60 08/29/19 09:00 104 94/60 08/29/19 09:00 94/60 08/29/19 08:00 Mechanical Ventilator 08/29/19 08:00 35 08/29/19 07:30 94 31 91/24 (46) 98 08/29/19 07:27 93 32 100 08/29/19 07:15 92 30 95/16 (42) 99 08/29/19 07:00 94 32 94/34 (54) 98 08/29/19 06:45 91 34 95/29 (51) 97 08/29/19 06:30 92 35 93/63 (73) 97 08/29/19 06:15 93 40 103/45 (64) 95 08/29/19 06:00 95 35 93/31 (51) 97 08/29/19 05:55 131/56 08/29/19 05:45 105 28 131/102 (112) 90 08/29/19 05:30 113 31 108/67 (81) 97 08/29/19 05:30 104 32 116/47 (70) 97 08/29/19 05:15 105 31 108/67 (81) 97 08/29/19 05:00 107 27 108/47 (67) 97 08/29/19 04:45 110 30 119/23 (55) 97 08/29/19 04:30 126 27 120/47 (71) 98 08/29/19 04:15 113 29 141/63 (89) 98 08/29/19 04:00 Mechanical Ventilator 08/29/19 04:00 113 08/29/19 04:00 35 08/29/19 04:00 98.4 112 32 137/97 (110) 99 08/29/19 03:45 114 38 150/28 (68) 99 08/29/19 03:36 107 40 100 08/29/19 03:30 107 31 122/49 (73) 100 08/29/19 03:27 64/30 08/29/19 03:00 98 24 72/30 (44) 100 08/29/19 02:35 99 28 66/34 (45) 100 08/29/19 02:30 102 32 80/49 (59) 100 08/29/19 02:00 99 31 94/66 (75) 100 08/29/19 01:30 98 30 104/78 (87) 100 08/29/19 01:00 98 24 104/40 (61) 100 08/29/19 00:30 98 30 106/53 (70) 08/29/19 00:13 96 37 104/49 (67) 100 08/29/19 00:12 94 33 77/51 (60) 100 08/29/19 00:00 35 08/29/19 00:00 104 08/29/19 00:00 Mechanical Ventilator 08/29/19 00:00 97.8 92 38 68/47 (54) 100 08/28/19 23:42 88 39 100 08/28/19 23:28 94 38 89/75 (80) 08/28/19 23:26 93 40 65/41 (49) 97 08/28/19 23:17 88 40 58/37 (44) 08/28/19 23:15 90 38 61/42 (48) 08/28/19 23:13 89 40 58/34 (42) 08/28/19 23:03 89 40 64/43 (50) 100 08/28/19 23:00 93 41 54/35 (41) 100 08/28/19 22:35 90 35 107/86 (93) 99 08/28/19 22:34 90 34 70/39 (49) 08/28/19 22:32 91 35 62/42 (49) 08/28/19 22:13 101 91/55 08/28/19 22:00 105 38 91/55 (67) 91 08/28/19 21:00 123 46 91/54 (66) 08/28/19 21:00 91/55 08/28/19 20:30 115 35 100/54 (69) 96 08/28/19 20:00 115 35 126/72 (90) 93 08/28/19 20:00 Mechanical Ventilator 08/28/19 20:00 35 08/28/19 20:00 97 08/28/19 19:45 121 44 35 08/28/19 19:30 98.8 124 40 137/80 (99) 97 08/28/19 19:00 109 33 99/54 (69) 94 08/28/19 18:32 108 31 147/76 (99) 94 08/28/19 18:30 111 164/101 08/28/19 18:00 129 33 121/88 (99) 85 08/28/19 17:30 119 36 121/88 (99) 98 08/28/19 17:00 118 29 164/101 (122) 100 08/28/19 16:30 112 25 120/54 (76) 100 08/28/19 16:00 99.4 125 30 193/116 (141) 90 08/28/19 16:00 35 08/28/19 16:00 Mechanical Ventilator 08/28/19 16:00 101 08/28/19 15:42 108 31 183/124 (143) 87 08/28/19 15:30 111 36 189/118 (141) 98 08/28/19 15:23 175/136 08/28/19 15:12 88 28 175/136 (149) 96 08/28/19 15:02 103 39 35 08/28/19 15:00 93 28 193/80 (117) 100 08/28/19 14:30 87 29 160/72 (101) 100 08/28/19 14:00 108 27 122/61 (81) 100 08/28/19 13:47 128 159/97 08/28/19 13:30 134 26 159/97 (117) 100 08/28/19 13:00 128 32 156/85 (108) 100 08/28/19 12:30 133 26 141/83 (102) 99 08/28/19 12:00 119 08/28/19 12:00 Mechanical Ventilator 08/28/19 12:00 35 08/28/19 12:00 100.2 128 30 147/112 (124) 96 08/28/19 11:30 125 27 148/89 (108) 100 08/28/19 11:00 128 29 143/96 (112) 94 08/28/19 10:45 118 26 35 08/28/19 10:30 133 29 149/87 (107) 100 08/28/19 10:00 132 25 151/120 (130) 93 08/28/19 09:30 127 26 144/94 (111) 100 Intake and Output 08/28/19 08/29/19 19:00 07:00 Intake Total 1378.97 ml 1834.64 ml Output Total 525 ml 1410 ml Balance 853.97 ml 424.64 ml IV Total 338.97 ml 1834.64 ml Tube Feeding 780 ml 0 ml Other 260 ml Output Urine Total 525 ml 210 ml Emesis 1200 ml Laboratory Tests 08/28/19 21:10: Arterial Blood pH 7.446, Arterial Blood Partial Pressure CO2 29.0L, Arterial Blood Partial Pressure O2 78.7, Arterial Blood HCO3 19.5L, Arterial Blood Oxygen Saturation 95.7, Arterial Blood Base Excess -3.5L, Álvaro Test Positive 08/29/19 05:22: POC Whole Blood Glucose [Pending] Height (Feet): 5 Height (Inches): 10.00 Weight (Pounds): 254 Objective Obese AA Man NCAT (+) Trach coarse BS RR Abd Healing prior GT site, some erythema around new GT site less distended abdomen trace edema non interactive Rubia Hawk MD Aug 29, 2019 09:21
--- NOTE | 2019-08-29 10:36 | NUR ---
CASE MANAGEMENT:REVIEW SI;A-FIB W/RVR. SEPSIS. RESPIRATORY FAILURE. HYPOTENSION. T 98.4 P 126 RR 40 BP 54/35 SpO2 @ 95% TRACH/VENT FIO2 @ 100% LABS PENDING FOR TODAY IS;IVF D5W @ 50 ML/HR LEVOPHED IV Q24 METRONIDAZOLE IV Q8 HEPARIN SUBQ Q12 PROTONIX IV QD AMIODARONE IV Q24 LASIX IV ONCE K-DUR GT ONCE VANCOMYCIN GT QID ICU STATUS DCP;PATIENT IS FROM [facility] [place]
[2019-08-29 10:48] LABS: ALANINE AMINOTRANSFERASE 99 U/L (12-78); ALBUMIN 1.3 G/DL (3.4-5.0); ALBUMIN/GLOBULIN RATIO 0.3 (1.0-2.7); ALKALINE PHOSPHATASE 83 U/L (46-116); ANION GAP 14 mmol/L (5-15); ASPARTATE AMINO TRANSFERASE 199 U/L (15-37); BLOOD UREA NITROGEN 44 mg/dL (7-18); CALCIUM 7.4 MG/DL (8.5-10.1); CARBON DIOXIDE 21 MMOL/L (21-32); CHLORIDE 110 MMOL/L (98-107); CREATININE 3.2 MG/DL (0.55-1.30); POTASSIUM 4.7 MMOL/L (3.5-5.1); SODIUM 144 MMOL/L (136-145)
[2019-08-29 10:49] LABS: HEMATOCRIT 32.6 % (42.0-52.0); LYMPHOCYTES % (AUTO) 12.6 % (20.0-45.0); MEAN CORPUSCULAR VOLUME 103 FL (80-99); MONOCYTES % (AUTO) 4.7 % (1.0-10.0); NEUTROPHILS % (AUTO) 81.7 % (45.0-75.0); PLATELET COUNT 250 K/UL (150-450); RED BLOOD COUNT 3.17 M/UL (4.70-6.10); RED CELL DISTRIBUTION WIDTH 16.3 % (11.6-14.8)
[2019-08-29] MEDS: Acetaminophen 650mg/20.3ml GT PRN (10:51)
--- NOTE | 2019-08-29 10:52 | Infectious Diseases Prog Note ---
"Assessment/Plan Assessment/Plan antibiotics : none A 1. pseudomonas | providencia pneumonia s/p rx COVID negative x 2 2. klebsiella | pseudomonas | VRE Gt site cellulitis 3. respiratory failure 4. leucocytosis resolved 5. s/p GT placement 6. C.diff colitis P 1. continue GT vancomycin 2. iv flagyl started 3. will follow up cultures Subjective ROS Limited/Unobtainable: Yes Allergies: Coded Allergies: No Known Allergies (Unverified , 08/07/19) Objective Last 24 Hour Vital Signs Date Time Temp Pulse Resp B/P (MAP) Pulse Ox O2 Delivery O2 Flow Rate FiO2 08/29/19 09:05 94/60 08/29/19 09:00 104 94/60 08/29/19 09:00 94/60 08/29/19 08:00 Mechanical Ventilator 08/29/19 08:00 35 08/29/19 07:30 94 31 91/24 (46) 98 08/29/19 07:27 93 32 100 08/29/19 07:15 92 30 95/16 (42) 99 08/29/19 07:00 94 32 94/34 (54) 98 08/29/19 06:45 91 34 95/29 (51) 97 08/29/19 06:30 92 35 93/63 (73) 97 08/29/19 06:15 93 40 103/45 (64) 95 08/29/19 06:00 95 35 93/31 (51) 97 08/29/19 05:55 131/56 08/29/19 05:45 105 28 131/102 (112) 90 08/29/19 05:30 113 31 108/67 (81) 97 08/29/19 05:30 104 32 116/47 (70) 97 08/29/19 05:15 105 31 108/67 (81) 97 08/29/19 05:00 107 27 108/47 (67) 97 08/29/19 04:45 110 30 119/23 (55) 97 08/29/19 04:30 126 27 120/47 (71) 98 08/29/19 04:15 113 29 141/63 (89) 98 08/29/19 04:00 Mechanical Ventilator 08/29/19 04:00 113 08/29/19 04:00 35 08/29/19 04:00 98.4 112 32 137/97 (110) 99 08/29/19 03:45 114 38 150/28 (68) 99 08/29/19 03:36 107 40 100 08/29/19 03:30 107 31 122/49 (73) 100 08/29/19 03:27 64/30 08/29/19 03:00 98 24 72/30 (44) 100 08/29/19 02:35 99 28 66/34 (45) 100 08/29/19 02:30 102 32 80/49 (59) 100 08/29/19 02:00 99 31 94/66 (75) 100 08/29/19 01:30 98 30 104/78 (87) 100 08/29/19 01:00 98 24 104/40 (61) 100 08/29/19 00:30 98 30 106/53 (70) 08/29/19 00:13 96 37 104/49 (67) 100 08/29/19 00:12 94 33 77/51 (60) 100 08/29/19 00:00 35 08/29/19 00:00 104 08/29/19 00:00 Mechanical Ventilator 08/29/19 00:00 97.8 92 38 68/47 (54) 100 08/28/19 23:42 88 39 100 08/28/19 23:28 94 38 89/75 (80) 08/28/19 23:26 93 40 65/41 (49) 97 08/28/19 23:17 88 40 58/37 (44) 08/28/19 23:15 90 38 61/42 (48) 08/28/19 23:13 89 40 58/34 (42) 08/28/19 23:03 89 40 64/43 (50) 100 08/28/19 23:00 93 41 54/35 (41) 100 08/28/19 22:35 90 35 107/86 (93) 99 08/28/19 22:34 90 34 70/39 (49) 08/28/19 22:32 91 35 62/42 (49) 08/28/19 22:13 101 91/55 08/28/19 22:00 105 38 91/55 (67) 91 08/28/19 21:00 123 46 91/54 (66) 08/28/19 21:00 91/55 08/28/19 20:30 115 35 100/54 (69) 96 08/28/19 20:00 115 35 126/72 (90) 93 08/28/19 20:00 Mechanical Ventilator 08/28/19 20:00 35 08/28/19 20:00 97 08/28/19 19:45 121 44 35 08/28/19 19:30 98.8 124 40 137/80 (99) 97 08/28/19 19:00 109 33 99/54 (69) 94 08/28/19 18:32 108 31 147/76 (99) 94 08/28/19 18:30 111 164/101 08/28/19 18:00 129 33 121/88 (99) 85 08/28/19 17:30 119 36 121/88 (99) 98 08/28/19 17:00 118 29 164/101 (122) 100 08/28/19 16:30 112 25 120/54 (76) 100 08/28/19 16:00 99.4 125 30 193/116 (141) 90 08/28/19 16:00 35 08/28/19 16:00 Mechanical Ventilator 08/28/19 16:00 101 08/28/19 15:42 108 31 183/124 (143) 87 08/28/19 15:30 111 36 189/118 (141) 98 08/28/19 15:23 175/136 08/28/19 15:12 88 28 175/136 (149) 96 08/28/19 15:02 103 39 35 08/28/19 15:00 93 28 193/80 (117) 100 08/28/19 14:30 87 29 160/72 (101) 100 08/28/19 14:00 108 27 122/61 (81) 100 08/28/19 13:47 128 159/97 08/28/19 13:30 134 26 159/97 (117) 100 08/28/19 13:00 128 32 156/85 (108) 100 08/28/19 12:30 133 26 141/83 (102) 99 08/28/19 12:00 119 08/28/19 12:00 Mechanical Ventilator 08/28/19 12:00 35 08/28/19 12:00 100.2 128 30 147/112 (124) 96 08/28/19 11:30 125 27 148/89 (108) 100 08/28/19 11:00 128 29 143/96 (112) 94 Height (Feet): 5 Height (Inches): 10.00 Weight (Pounds): 254 HEENT: status post trach Respiratory/Chest: lungs clear Cardiovascular: normal rate, regular rhythm, no gallop/murmur Abdomen: soft, non tender, other - GT Extremities: no edema Microbiology Date/Time Source Procedure Growth Status 08/27/19 16:55 Stool Clostridium difficile Toxin Assay - Final Complete Laboratory Tests Test 08/28/19 21:10 08/29/19 05:22 08/29/19 09:50 Arterial Blood pH 7.446 (7.350-7.450) Arterial Blood Partial Pressure CO2 29.0 mmHg (35.0-45.0) L Arterial Blood Partial Pressure O2 78.7 mmHg (75.0-100.0) Arterial Blood HCO3 19.5 mmol/L (22.0-26.0) L Arterial Blood Oxygen Saturation 95.7 % (95-100) Arterial Blood Base Excess -3.5 (-2-2) L Álvaro Test Positive POC Whole Blood Glucose Pending White Blood Count Pending Red Blood Count Pending Hemoglobin Pending Hematocrit Pending Mean Corpuscular Volume Pending Mean Corpuscular Hemoglobin Pending Mean Corpuscular Hemoglobin Concent Pending Red Cell Distribution Width Pending Platelet Count Pending Mean Platelet Volume Pending Neutrophils (%) (Auto) Pending Lymphocytes (%) (Auto) Pending Monocytes (%) (Auto) Pending Eosinophils (%) (Auto) Pending Basophils (%) (Auto) Pending Sodium Level 144 MMOL/L (136-145) Potassium Level 4.7 MMOL/L (3.5-5.1) Chloride Level 110 MMOL/L (98-107) H Carbon Dioxide Level 21 MMOL/L (21-32) Anion Gap 14 mmol/L (5-15) Blood Urea Nitrogen 44 mg/dL (7-18) H Creatinine 3.2 MG/DL (0.55-1.30) #H Estimat Glomerular Filtration Rate 23.1 mL/min (>60) Glucose Level 105 MG/DL (74-106) Calcium Level 7.4 MG/DL (8.5-10.1) L Magnesium Level 1.9 MG/DL (1.8-2.4) Total Bilirubin 1.0 MG/DL (0.2-1.0) Aspartate Amino Transf (AST/SGOT) 199 U/L (15-37) H Alanine Aminotransferase (ALT/SGPT) 99 U/L (12-78) H Alkaline Phosphatase 83 U/L (46-116) Troponin I Pending Total Protein 6.2 G/DL (6.4-8.2) L Albumin 1.3 G/DL (3.4-5.0) L Globulin 4.9 g/dL Albumin/Globulin Ratio 0.3 (1.0-2.7) L Current Medications Medications (Trade) Dose Ordered Sig/Nury Route PRN Reason Start Time Stop Time Status Last Admin Dose Admin Acetaminophen (Tylenol) 325 mg Q6H PRN RECTAL Temp >100.5 08/28/19 03:45 09/07/19 21:44 Acetaminophen (Tylenol) 650 mg Q4H PRN GT Mild Pain (Pain Scale 1-3) 08/28/19 06:45 09/07/19 10:44 Acetaminophen (Tylenol) 650 mg Q4H PRN GT Temp >100.5 08/28/19 06:45 09/07/19 10:44 Amantadine HCl (Symmetrel) 100 mg DAILY GT 08/28/19 09:00 09/08/19 08:59 08/29/19 09:04 Amiodarone HCl 900 mg/Dextrose 500 ml @ 16.66 mls/ hr Q24H IV 08/28/19 18:30 08/29/19 18:29 08/28/19 18:55 Ascorbic Acid (Vitamin C) 250 mg DAILY GT 08/28/19 09:00 09/08/19 08:59 08/29/19 09:04 Chlorhexidine Gluconate (Milagros-Hex 2%) 1 applic DAILY@2000 TOPIC 08/28/19 20:00 11/26/19 19:59 08/28/19 20:00 Dextrose/Sodium Chloride 1,000 ml @ 50 mls/hr Q20H IV 08/29/19 08:00 09/28/19 19:59 08/29/19 09:05 Folic Acid (Folate) 1 mg DAILY GT 08/28/19 09:00 09/07/19 14:29 08/29/19 09:04 Heparin Sodium (Porcine) (Heparin 5000 units/ml) 5,000 units EVERY 12 HOURS SUBQ 08/28/19 21:00 10/12/19 20:59 08/29/19 09:09 Heparin Sodium/ Sodium Chloride (Heparin 1000 units/500ml Premix) 1,000 unit ONCE PRN IV picc line placement 08/28/19 13:30 08/30/19 13:29 Hydralazine HCl (Apresoline) 10 mg Q6H PRN GT SBP above 160 08/28/19 04:00 11/26/19 03:59 Hydralazine HCl (Apresoline) 10 mg Q6H PRN IV SBP> 160 08/28/19 03:45 11/06/19 21:44 08/28/19 15:23 Lidocaine HCl (Xylocaine 1% 30ml) 30 ml ONCE PRN INJ picc line placement 08/28/19 13:30 08/30/19 13:29 Lisinopril (PriniviL) 20 mg Q12HR GT 08/28/19 09:00 09/07/19 20:59 08/28/19 21:00 Lorazepam (Ativan 2mg/ml 1ml) 1 mg Q2H PRN IV For Anxiety 08/28/19 18:20 09/04/19 18:19 08/28/19 18:30 Metoprolol Tartrate (Lopressor) 50 mg Q12HR GT 08/28/19 09:00 11/24/19 08:59 08/28/19 22:13 Metronidazole 100 ml @ 100 mls/hr Q8HR IVPB 08/28/19 22:45 09/04/19 22:44 08/29/19 05:53 Multivitamins (Multivitamins) 1 tab DAILY GT 08/28/19 09:00 09/08/19 08:59 08/29/19 09:07 Norepinephrine Bitartrate 250 ml @ 0 mls/hr Q24H IV 08/29/19 04:00 11/27/19 03:59 08/29/19 05:55 Norepinephrine Bitartrate 8 mg/ Dextrose 500 ml @ 0 mls/hr Q24H IV 08/29/19 07:45 09/28/19 07:44 08/29/19 09:05 Pantoprazole (Protonix) 40 mg DAILY IVP 08/29/19 09:00 09/08/19 22:59 08/29/19 09:04 Vancomycin HCl (Firvanq) 125 mg FOUR TIMES A DAY ORAL 08/28/19 13:00 09/04/19 12:59 08/29/19 09:07 Jude Ochoa MD Aug 29, 2019 10:52"
--- NOTE | 2019-08-29 11:00 | NUR ---
NURSE NOTES: Pt given Tylenol 650MG for temp of 103.0. Cooling measures initiated. Will monitor.
--- NOTE | 2019-08-29 11:30 | NUR ---
NURSE NOTES: FiO2 decreased from 100% to 70%. O2Sat remains 100%
--- NOTE | 2019-08-29 11:40 | NUR ---
NURSE NOTES: Dr Fisher informed of Troponin results 1.336. No new orders at this time.
--- NOTE | 2019-08-29 11:53 | Surgery Progress Note ---
Surgery Progress Note Subjective Additional Comments worsening on pressors ill appearing distended leukocytosis Objective Last 24 Hour Vital Signs Date Time Temp Pulse Resp B/P (MAP) Pulse Ox O2 Delivery O2 Flow Rate FiO2 08/29/19 11:38 70 08/29/19 11:30 106 22 117/79 (92) 100 08/29/19 11:21 102.6 08/29/19 11:15 103 38 100 08/29/19 11:00 103 25 106/62 (77) 100 08/29/19 11:00 106/62 08/29/19 10:45 101 21 112/96 (101) 100 08/29/19 10:30 103.0 103 19 98/53 (68) 100 08/29/19 10:15 103 18 103/26 (51) 100 08/29/19 10:00 104 20 111/81 (91) 100 08/29/19 10:00 103/26 08/29/19 09:45 106 19 100/31 (54) 100 08/29/19 09:30 105 22 85/42 (56) 99 08/29/19 09:15 104 23 89/44 (59) 100 08/29/19 09:05 94/60 08/29/19 09:00 104 94/60 08/29/19 09:00 94/60 08/29/19 09:00 103 34 94/60 (71) 98 08/29/19 08:45 100 36 84/32 (49) 99 08/29/19 08:30 99 41 106/43 (64) 98 08/29/19 08:15 97 41 106/35 (58) 99 08/29/19 08:00 Mechanical Ventilator 08/29/19 08:00 99 36 106/35 (58) 98 08/29/19 08:00 99 08/29/19 08:00 96 39 106/31 (56) 99 08/29/19 08:00 100 08/29/19 07:30 94 31 91/24 (46) 98 08/29/19 07:27 93 32 100 08/29/19 07:15 92 30 95/16 (42) 99 08/29/19 07:00 94 32 94/34 (54) 98 08/29/19 06:45 91 34 95/29 (51) 97 08/29/19 06:30 92 35 93/63 (73) 97 08/29/19 06:15 93 40 103/45 (64) 95 08/29/19 06:00 95 35 93/31 (51) 97 08/29/19 05:55 131/56 08/29/19 05:45 105 28 131/102 (112) 90 08/29/19 05:30 113 31 108/67 (81) 97 08/29/19 05:30 104 32 116/47 (70) 97 08/29/19 05:15 105 31 108/67 (81) 97 08/29/19 05:00 107 27 108/47 (67) 97 08/29/19 04:45 110 30 119/23 (55) 97 08/29/19 04:30 126 27 120/47 (71) 98 08/29/19 04:15 113 29 141/63 (89) 98 08/29/19 04:00 Mechanical Ventilator 08/29/19 04:00 113 08/29/19 04:00 35 08/29/19 04:00 98.4 112 32 137/97 (110) 99 08/29/19 03:45 114 38 150/28 (68) 99 08/29/19 03:36 107 40 100 08/29/19 03:30 107 31 122/49 (73) 100 08/29/19 03:27 64/30 08/29/19 03:00 98 24 72/30 (44) 100 08/29/19 02:35 99 28 66/34 (45) 100 08/29/19 02:30 102 32 80/49 (59) 100 08/29/19 02:00 99 31 94/66 (75) 100 08/29/19 01:30 98 30 104/78 (87) 100 08/29/19 01:00 98 24 104/40 (61) 100 08/29/19 00:30 98 30 106/53 (70) 08/29/19 00:13 96 37 104/49 (67) 100 08/29/19 00:12 94 33 77/51 (60) 100 08/29/19 00:00 35 08/29/19 00:00 104 08/29/19 00:00 Mechanical Ventilator 08/29/19 00:00 97.8 92 38 68/47 (54) 100 6/29/20 23:42 88 39 100 08/28/19 23:28 94 38 89/75 (80) 08/28/19 23:26 93 40 65/41 (49) 97 08/28/19 23:17 88 40 58/37 (44) 08/28/19 23:15 90 38 61/42 (48) 08/28/19 23:13 89 40 58/34 (42) 08/28/19 23:03 89 40 64/43 (50) 100 08/28/19 23:00 93 41 54/35 (41) 100 08/28/19 22:35 90 35 107/86 (93) 99 08/28/19 22:34 90 34 70/39 (49) 08/28/19 22:32 91 35 62/42 (49) 08/28/19 22:13 101 91/55 08/28/19 22:00 105 38 91/55 (67) 91 08/28/19 21:00 123 46 91/54 (66) 08/28/19 21:00 91/55 08/28/19 20:30 115 35 100/54 (69) 96 08/28/19 20:00 115 35 126/72 (90) 93 08/28/19 20:00 Mechanical Ventilator 08/28/19 20:00 35 08/28/19 20:00 97 08/28/19 19:45 121 44 35 08/28/19 19:30 98.8 124 40 137/80 (99) 97 08/28/19 19:00 109 33 99/54 (69) 94 08/28/19 18:32 108 31 147/76 (99) 94 08/28/19 18:30 111 164/101 08/28/19 18:00 129 33 121/88 (99) 85 08/28/19 17:30 119 36 121/88 (99) 98 08/28/19 17:00 118 29 164/101 (122) 100 08/28/19 16:30 112 25 120/54 (76) 100 08/28/19 16:00 99.4 125 30 193/116 (141) 90 08/28/19 16:00 35 08/28/19 16:00 Mechanical Ventilator 08/28/19 16:00 101 08/28/19 15:42 108 31 183/124 (143) 87 08/28/19 15:30 111 36 189/118 (141) 98 08/28/19 15:23 175/136 08/28/19 15:12 88 28 175/136 (149) 96 08/28/19 15:02 103 39 35 08/28/19 15:00 93 28 193/80 (117) 100 08/28/19 14:30 87 29 160/72 (101) 100 08/28/19 14:00 108 27 122/61 (81) 100 08/28/19 13:47 128 159/97 08/28/19 13:30 134 26 159/97 (117) 100 08/28/19 13:00 128 32 156/85 (108) 100 08/28/19 12:30 133 26 141/83 (102) 99 08/28/19 12:00 119 08/28/19 12:00 Mechanical Ventilator 08/28/19 12:00 35 08/28/19 12:00 100.2 128 30 147/112 (124) 96 I&O Intake and Output 08/28/19 08/29/19 19:00 07:00 Intake Total 1378.97 ml 1834.64 ml Output Total 525 ml 1410 ml Balance 853.97 ml 424.64 ml IV Total 338.97 ml 1834.64 ml Tube Feeding 780 ml 0 ml Other 260 ml Output Urine Total 525 ml 210 ml Emesis 1200 ml Cardiovascular: RSR Respiratory: decreased breath sounds Abdomen: soft, distended, other, decreased bowel sounds Extremities: no tenderness, no cyanosis Laboratory Tests Test 08/28/19 21:10 08/29/19 05:22 08/29/19 09:50 Arterial Blood pH 7.446 (7.350-7.450) Arterial Blood Partial Pressure CO2 29.0 mmHg (35.0-45.0) L Arterial Blood Partial Pressure O2 78.7 mmHg (75.0-100.0) Arterial Blood HCO3 19.5 mmol/L (22.0-26.0) L Arterial Blood Oxygen Saturation 95.7 % (95-100) Arterial Blood Base Excess -3.5 (-2-2) L Álvaro Test Positive POC Whole Blood Glucose Pending White Blood Count 12.0 K/UL (4.8-10.8) H Red Blood Count 3.17 M/UL (4.70-6.10) L Hemoglobin 10.0 G/DL (14.2-18.0) L Hematocrit 32.6 % (42.0-52.0) L Mean Corpuscular Volume 103 FL (80-99) H Mean Corpuscular Hemoglobin 31.5 PG (27.0-31.0) H Mean Corpuscular Hemoglobin Concent 30.6 G/DL (32.0-36.0) L Red Cell Distribution Width 16.3 % (11.6-14.8) H Platelet Count 250 K/UL (150-450) Mean Platelet Volume 7.8 FL (6.5-10.1) Neutrophils (%) (Auto) 81.7 % (45.0-75.0) H Lymphocytes (%) (Auto) 12.6 % (20.0-45.0) L Monocytes (%) (Auto) 4.7 % (1.0-10.0) Eosinophils (%) (Auto) 0.0 % (0.0-3.0) Basophils (%) (Auto) 1.0 % (0.0-2.0) Sodium Level 144 MMOL/L (136-145) Potassium Level 4.7 MMOL/L (3.5-5.1) Chloride Level 110 MMOL/L (98-107) H Carbon Dioxide Level 21 MMOL/L (21-32) Anion Gap 14 mmol/L (5-15) Blood Urea Nitrogen 44 mg/dL (7-18) H Creatinine 3.2 MG/DL (0.55-1.30) #H Estimat Glomerular Filtration Rate 23.1 mL/min (>60) Glucose Level 105 MG/DL (74-106) Calcium Level 7.4 MG/DL (8.5-10.1) L Magnesium Level 1.9 MG/DL (1.8-2.4) Total Bilirubin 1.0 MG/DL (0.2-1.0) Aspartate Amino Transf (AST/SGOT) 199 U/L (15-37) H Alanine Aminotransferase (ALT/SGPT) 99 U/L (12-78) H Alkaline Phosphatase 83 U/L (46-116) Troponin I 1.336 ng/mL (0.000-0.056) Total Protein 6.2 G/DL (6.4-8.2) L Albumin 1.3 G/DL (3.4-5.0) L Globulin 4.9 g/dL Albumin/Globulin Ratio 0.3 (1.0-2.7) L Plan Problems: (1) Anemia Assessment & Plan: 08/22 acute brisk pulsatile active bleeding from the G-tube site. Significant for blood identified on the dressings and in the patient's bed therefore immediate hemostasis indicated and recommended. At the bedside patient was given pain medication morphine IV and the G-tube site incision was extended and postop bleeding identified from around the level of the deep subcutaneous tissue. 2 [id number] 0 silk sutures were placed and hemostasis was obtained. The skin incision was reapproximated using 0 silk interrupted sutures. Patient taught procedure well. Hemostasis noted. Labs ordered will monitor renal improved a fib rvr in ICU for monitoring (2) Unstageable decubitus ulcer Assessment & Plan: Pt presented on admission with multiple Pressure Injuries. Pt has a Tracheostomy and no areas of skin concerns noted under tracheal collar. Unstageable Sacral Pressure Injury(L)9.5cm x (W)10cm. Base of wound is 75% mixed slough and eschar,25% carolynn, Edges adherent with surrounding purple and maroon indurated borders. No odor or exudate noted. DTPI L Heel (L)3.7cm x (W)4.5cm. Base of wound is maroon and indurated with surrounding non-Blanching erythema. Callused skin periwound. Reabsorbing DTPI Scales [place]ound L Foot (L)3.3cm x (W)2.5cm. Base of Pressure Injury is maroon but dry. No erythema or fluctuance periwound. DTPI Lateral L 1st metatarsal(L)1.5cm x (W)2cm. Base of wound is maroon and indurated.Callused skin periwound. DTPI Lateral R Heel (L)4.4cm x (W)6cm. Base of wound is indurated ,purple with surrounding maroon and fluctuant borders.Callusing periwound. DTPI R Hallux (L)1.8cm x (W)1.9cm. Base of wound is indurated and purple. Callusing periwound. DTPI Lateral R 1st metatarsal(L)2cm x (W)2.7cm. Base of wound is indurated and maroon. Callusing periwound. Tx.Plan: Cleanse Sacral wound with Saline. Apply TheraHoney. Apply Moisture Barrier Paste periwound. Cover with Optifoam drsg. Change every 3 days and prn. Apply Cavilon Skin Barrier to wounds L L Heel , L st metatarsal,Dorsal L Foot. Cover each Site with Optifoam drsg. Change every 7 days and prn. Apply Cavilon Skin Barrier to R Heel, R Hallux, R 1st metatarsal. Cover each site with Optifoam drsg. Change every 7 days and prn. APM/KHOA Mattress. Reposition at least every 2hours or as tolerated. Off-Load Heels with Pillows. (3) Leaking PEG tube Assessment & Plan: prior peg removed plan new placement soon will monitor site drainage noted packing placed Minimal drainage from prior G-tube site discussed with nursing about packing and dressings will continue current care plan plan for PEG tube once improved s/p peg 08/21 tf worsening hold tf g tube to suction LIS abd distention likely ileus possible asp pna cont abd cont support wean pressors Lung bases: Atelectasis at the lung bases. Liver: Unremarkable. No mass. Gallbladder and bile ducts: Unremarkable. No calcified stones. No ductal dilation. Pancreas: Unremarkable. No mass. No ductal dilation. Spleen: Unremarkable. No splenomegaly. Adrenals: Unremarkable. No mass. Kidneys and ureters: Nonobstructing stone in the lower pole of the right kidney. Stomach and bowel: Tract from a recent percutaneous gastrostomy tube which is healing in the subcutaneous fat. Surrounding inflammatory changes but no abscess. Severe colonic diverticulosis within the sigmoid colon with mural hypertrophy however no surrounding inflammatory changes to suggest acute diverticulitis. Underlying malignancy not excluded. No obstruction. Intraperitoneal space: Unremarkable. No free air. No significant fluid collection. Bones/joints: No acute fracture. No dislocation. Soft tissues: Fat stranding in the ventral abdomen. Vasculature: Unremarkable. No abdominal aortic aneurysm. Lymph nodes: Unremarkable. No enlarged lymph nodes. Tubes, lines and devices: Thakkar catheter within the bladder. IMPRESSION: 1. Severe colonic diverticulosis within the sigmoid colon with mural hypertrophy however no surrounding inflammatory changes to suggest acute diverticulitis. Underlying malignancy not excluded. 2. Tract from a recent percutaneous gastrostomy tube which is healing in the subcutaneous fat. Surrounding inflammatory changes but no abscess. (4) Person under investigation for COVID-19 Assessment & Plan: There is a tracheostomy. Calcified granuloma is seen in the right midlung. Granulomatous calcified nodes are seen in the left aortopulmonary window. No definite infiltrates, effusions, congestion. The heart size is upper limits normal. Impression: No definite acute abnormality Evidence of old granulomatous disease Homero Cummings Aug 29, 2019 11:53
--- NOTE | 2019-08-29 12:30 | NUR ---
NURSE NOTES: Pt turned and repositioned for comfort. Pt suctioned via trach and oral care done. No distress noted at this time. Pt remains lethargic.
--- NOTE | 2019-08-29 12:45 | NUR ---
NURSE NOTES: Dr Fisher instructed ghost writer to titrate pt off Levophed, however, pt's B/P immediately decreases (). Pt currently back up to 15mcg/min at this time.
--- NOTE | 2019-08-29 13:15 | NUR ---
*-* INSURANCE *-* UPDATED CLINICALS AND REVIEWS HAVE BEEN FAXED TO: [facility] F: [phone] REF#[id number]
--- NOTE | 2019-08-29 13:15 | NUR ---
*-* INSURANCE *-* UPDATED CLINICALS HAVE BEEN FAXED TO: [facility] F: [phone] REF#[id number]
--- NOTE | 2019-08-29 15:20 | NUR ---
NURSE NOTES: Pt fully cleaned and linens changed after pt had a large liquid BM. Rectal tube inserted, as ordered by Dr Hawk. Oral care done and pt suctioned via trach. No distress noted at this time.
--- NOTE | 2019-08-29 16:52 | NUR ---
RN VASCULAR NOTE Pt was transferred from Step Down unit to ICU. Pt is trach dependent. Pt is from [facility] [address] [place] [facility] [place] [address]. This SW confirmed w/ pt's granddaughter/POA that she is the decision maker for pt. There is no copy of POLST/AD placed in the chart. Pt remains full code.
--- NOTE | 2019-08-29 17:00 | NUR ---
NURSE NOTES: Pt turned and repositioned for comfort. Pt remains on Levophed 15mcg/min. Pt observed resting in bed, responsive to deep stimuli. No distress noted.
--- NOTE | 2019-08-29 18:54 | NUR ---
CODE BLUE: See Code sheet which remains on paper. Pt s/p code gwen, after becoming bradycardic in the 30's, evolving into asystole on monitoring analyst. Pt was pulseless upon inspection. CPR started and KOBY GWEN called at 1825. After a couple rounds of CPR, Epi, and defib at 100J, ROSC at 1834. Dr Hurt notified and he called family. Left message for Dr. Fisher, awaiting call back.
--- NOTE | 2019-08-29 19:14 | NUR ---
HAND-OFF: Report given to KEHINDE Hall.
--- NOTE | 2019-08-29 19:29 | NUR ---
NURSE NOTES: received report from delmi schneider orally intubated -vent o2 sat 100% tolerating tube feeding no residual reposition and suction no acute resp distress Addendum: 08/29/19 at 2155 by SEN DESIR RN wrong pt
[2019-08-29 19:46] LABS: HEMATOCRIT 23.3 % (42.0-52.0); MEAN CORPUSCULAR VOLUME 106 FL (80-99); PLATELET COUNT 280 K/UL (150-450); RED CELL DISTRIBUTION WIDTH 17.5 % (11.6-14.8)
[2019-08-29 19:55] LABS: ANION GAP 17 mmol/L (5-15); BLOOD UREA NITROGEN 51 mg/dL (7-18); CALCIUM 6.9 MG/DL (8.5-10.1); CARBON DIOXIDE 17 MMOL/L (21-32); CHLORIDE 112 MMOL/L (98-107); CREATININE 3.8 MG/DL (0.55-1.30); POTASSIUM 5.3 MMOL/L (3.5-5.1); SODIUM 146 MMOL/L (136-145)
[2019-08-29 20:00] LABS: ALANINE AMINOTRANSFERASE 149 U/L (12-78); ALBUMIN 1.1 G/DL (3.4-5.0); ALBUMIN/GLOBULIN RATIO 0.3 (1.0-2.7); ALKALINE PHOSPHATASE 79 U/L (46-116); ASPARTATE AMINO TRANSFERASE 275 U/L (15-37); BILIRUBIN,TOTAL 0.7 MG/DL (0.2-1.0)
[2019-08-29] MEDS ORDERED: D5 1/2NS 1,000 ML IV SCH (20:00)
[2019-08-29] MEDS: Dyna-Hex 2% Top Sol 2oz TOPIC SCH (20:00)
--- NOTE | 2019-08-29 20:00 | NUR ---
NURSE NOTES: received report from jess schneider pt obtunted trach -vent o2 sat 100%s/p code blue bp 70/30 dr garrison was notiify with order dc ammoi drip and start on dopamine drip family at bedside
[2019-08-29] MEDS ORDERED: DOPamine 400mg/250ml 250 ML IV SCH (20:02)
[2019-08-29 20:07] LABS: WHITE BLOOD COUNT 25.2 K/UL (4.8-10.8)
--- NOTE | 2019-08-29 20:44 | NUR ---
NURSE NOTES: SBP on the 80s started with dopamine drip at 10mcg/kg/min. Dr Hurt was notified with the latest labs with orders of 2unit PRBC.
--- NOTE | 2019-08-29 22:00 | NUR ---
NURSE NOTES: 1 unit after 15min prbc stared temp 98 no apparent reaction noted
[2019-08-30] VITALS (74 sets, daily range): BP systolic 82–145; BP diastolic 18–101
--- NOTE | 2019-08-30 00:52 | Emergency Room Report ---
Physical Exam Called for Code Blue atient hypotensive, cammy then asystole. CPR being performed and 1 epi prior to my arrival. Trach vent. Unresponsive today. Pulses with CPR. On Levophed 30. AM labs reviewed. Last 24 Hour Vital Signs Date Time Temp Pulse Resp B/P (MAP) Pulse Ox O2 Delivery O2 Flow Rate FiO2 08/29/19 23:30 96 31 120/48 (72) 100 08/29/19 23:15 98 32 131/60 (83) 100 08/29/19 23:13 94 32 100 08/29/19 23:08 122/80 08/29/19 23:00 97 31 127/78 (94) 100 08/29/19 22:45 95 31 127/54 (78) 100 08/29/19 22:30 94 30 123/18 (53) 100 08/29/19 22:15 96 30 156/39 (78) 100 08/29/19 22:10 116/44 08/29/19 22:00 95 30 144/38 (73) 100 08/29/19 21:45 94 29 135/33 (67) 100 08/29/19 21:30 94 27 149/36 (73) 100 08/29/19 21:15 98 26 149/33 (71) 48 08/29/19 21:00 100 23 139/31 (67) 08/29/19 21:00 120/56 08/29/19 21:00 120/56 08/29/19 20:56 82/32 08/29/19 20:55 82/36 08/29/19 20:55 92 82/32 08/29/19 20:45 96 14 123/21 (55) 08/29/19 20:30 94 17 70/19 (36) 08/29/19 20:15 97 18 88/37 (54) 08/29/19 20:11 98 30 100 08/29/19 20:00 93 08/29/19 20:00 97.8 100 19 90/56 (67) 08/29/19 20:00 120/34 08/29/19 20:00 Mechanical Ventilator 08/29/19 19:45 110 29 136/32 (66) 08/29/19 19:35 83 15 64/23 (37) 77 08/29/19 19:30 91 25 69/24 (39) 08/29/19 19:15 88 15 82/46 (58) 94 08/29/19 19:00 100 08/29/19 19:00 82 14 81/21 (41) 91 08/29/19 19:00 81/21 08/29/19 18:45 99 14 107/26 (53) 63 08/29/19 18:38 119 17 196/33 (87) 08/29/19 18:35 125 19 187/44 (91) 08/29/19 18:31 81 29 151/93 (112) 08/29/19 18:30 128 28 111/18 (49) 84 08/29/19 18:25 46 14 44/17 (26) 08/29/19 18:23 54 16 48/36 (40) 08/29/19 18:15 70 17 109/32 (57) 08/29/19 18:02 85 23 116/34 (61) 98 08/29/19 18:00 110/32 08/29/19 18:00 40 08/29/19 17:45 83 13 110/32 (58) 96 08/29/19 17:30 83 25 124/32 (62) 95 08/29/19 17:25 114/46 08/29/19 17:02 85 27 110/42 (64) 93 08/29/19 17:00 110/42 08/29/19 16:45 89 51 130/35 (66) 93 08/29/19 16:30 89 53 125/35 (65) 94 08/29/19 16:15 92 56 132/33 (66) 94 08/29/19 16:00 70 08/29/19 16:00 91 08/29/19 16:00 Mechanical Ventilator 08/29/19 16:00 132/33 08/29/19 16:00 99.4 91 55 135/51 (79) 94 08/29/19 15:30 94 44 142/50 (80) 94 08/29/19 15:00 139/60 08/29/19 15:00 98 42 157/70 (99) 94 08/29/19 14:30 95 33 40 08/29/19 14:30 99 26 132/59 (83) 95 08/29/19 14:00 88 33 108/26 (53) 97 08/29/19 14:00 108/26 08/29/19 13:45 89 29 112/18 (49) 96 08/29/19 13:30 90 35 108/26 (53) 99 08/29/19 13:00 95/65 08/29/19 13:00 89 32 95/65 (75) 95 08/29/19 12:45 96/29 08/29/19 12:30 100 31 102/33 (56) 97 08/29/19 12:15 101.7 97 15 102/35 (57) 97 08/29/19 12:00 Mechanical Ventilator 08/29/19 12:00 100 08/29/19 12:00 104 20 109/40 (63) 98 08/29/19 12:00 70 08/29/19 12:00 109/40 08/29/19 11:38 70 08/29/19 11:30 106 22 117/79 (92) 100 08/29/19 11:21 102.6 08/29/19 11:15 103 38 100 08/29/19 11:00 103 25 106/62 (77) 100 08/29/19 11:00 106/62 08/29/19 10:45 101 21 112/96 (101) 100 08/29/19 10:30 103.0 103 19 98/53 (68) 100 08/29/19 10:15 103 18 103/26 (51) 100 08/29/19 10:00 104 20 111/81 (91) 100 08/29/19 10:00 103/26 08/29/19 09:45 106 19 100/31 (54) 100 08/29/19 09:30 105 22 85/42 (56) 99 08/29/19 09:15 104 23 89/44 (59) 100 08/29/19 09:05 94/60 08/29/19 09:00 104 94/60 08/29/19 09:00 94/60 08/29/19 09:00 103 34 94/60 (71) 98 08/29/19 08:45 100 36 84/32 (49) 99 08/29/19 08:30 99 41 106/43 (64) 98 08/29/19 08:15 97 41 106/35 (58) 99 08/29/19 08:00 Mechanical Ventilator 08/29/19 08:00 99 36 106/35 (58) 98 08/29/19 08:00 99 08/29/19 08:00 96 39 106/31 (56) 99 08/29/19 08:00 100 08/29/19 07:30 94 31 91/24 (46) 98 08/29/19 07:27 93 32 100 08/29/19 07:15 92 30 95/16 (42) 99 08/29/19 07:00 94 32 94/34 (54) 98 08/29/19 06:45 91 34 95/29 (51) 97 08/29/19 06:30 92 35 93/63 (73) 97 08/29/19 06:15 93 40 103/45 (64) 95 08/29/19 06:00 95 35 93/31 (51) 97 08/29/19 05:55 131/56 08/29/19 05:45 105 28 131/102 (112) 90 08/29/19 05:30 113 31 108/67 (81) 97 08/29/19 05:30 104 32 116/47 (70) 97 08/29/19 05:15 105 31 108/67 (81) 97 08/29/19 05:00 107 27 108/47 (67) 97 08/29/19 04:45 110 30 119/23 (55) 97 08/29/19 04:30 126 27 120/47 (71) 98 08/29/19 04:15 113 29 141/63 (89) 98 08/29/19 04:00 Mechanical Ventilator 08/29/19 04:00 113 08/29/19 04:00 35 08/29/19 04:00 98.4 112 32 137/97 (110) 99 08/29/19 03:45 114 38 150/28 (68) 99 08/29/19 03:36 107 40 100 08/29/19 03:30 107 31 122/49 (73) 100 08/29/19 03:27 64/30 08/29/19 03:00 98 24 72/30 (44) 100 08/29/19 02:35 99 28 66/34 (45) 100 08/29/19 02:30 102 32 80/49 (59) 100 08/29/19 02:00 99 31 94/66 (75) 100 08/29/19 01:30 98 30 104/78 (87) 100 08/29/19 01:00 98 24 104/40 (61) 100 Sp02 EP Interpretation: reviewed, abnormal - interpreted as low by me General Appearance: other - Unresponsive chronically ill Head: normocephalic, atraumatic Eyes: bilateral eye other - Pupils unresponsive ENT: moist mucus membranes Neck: tracheotomy Respiratory: other - Normal chest rise Cardiovascular #1: other - pulses with CPR only, edema Cardiovascular #2: 1+ femoral (R) Gastrointestinal: non-distended, abnormal bowel sounds - Decreased, overweight Genitourinary: other - Thakkar Musculoskeletal: other - No deformity but flaccid Neurologic: other - Unresponsive Psychiatric: other - Unresponsive Skin: warm/dry CPR/Code Blue CPR/Code Blue Narrative Code called 1825. When I arrived quality CPR was being performed. Apparently the initial rhythm was bradycardia. Epinephrine was administered twice. At that time the patient appeared to either be in ventricular tachycardia or PEA without pulses. The patient was defibrillated with 100 W seconds. After defibrillation the patient had complexes and heart rate started to increase. Return of spontaneous circulation at 1834. Prognosis poor. Medical Decision Making Diagnostic Impression: Primary Impression: Cardiopulmonary arrest Additional Impression: Bilateral pneumonia Qualified Codes: J18.9 - Pneumonia, unspecified organism ER Course Patient sustained a CODE BLUE which began with bradycardia. He was hypotensive on levofed. See CODE BLUE report. Return of spontaneous circulation obtained. Etiology of cardiopulmonary arrest and clear. Prognosis poor. Rhythm Strip Diag. Results EP Interpretation: yes Rhythm: no PVC's, no ectopy, other - Sinus tachycardia Last Vital Signs Date Time Temp Pulse Resp B/P (MAP) Pulse Ox O2 Delivery O2 Flow Rate FiO2 08/29/19 23:30 96 31 120/48 (72) 100 08/29/19 23:13 100 08/29/19 20:00 97.8 08/29/19 20:00 Mechanical Ventilator Status: worsened Disposition: ADMITTED INPATIENT Condition: Critical Referrals: Isaiah Hurt MD (PCP) Augustine Gregory MD Aug 30, 2019 00:52
--- NOTE | 2019-08-30 02:00 | NUR ---
NURSE NOTES: reposition and suction
[2019-08-30] MEDS: D5 1/2NS 1,000 ML IV SCH (04:00)
--- NOTE | 2019-08-30 04:00 | NUR ---
NURSE NOTES: complete bed BATH AND BACK CARE DONE
--- NOTE | 2019-08-30 07:00 | Progress Note ---
DATE: 08/29/2019 CRITICAL CARE: 75 minutes. SUBJECTIVE: Patient was seen on 2 separate occasions. Total time spent is noted. Condition critical. Prognosis is guarded. Patient has had persistent hypotensive episodes, failed to respond to fluid challenges. Required transfer to intensive care unit. Required initiation of pressors. Remained on antiarrhythmics for rapid atrial fibrillation. Subsequently developed Code Blue arrest with bradyarrhythmia and antiarrhythmics had to be discontinued sequentially namely diltiazem and amiodarone. Presently on pressor support. PHYSICAL EXAMINATION: VITAL SIGNS: Tenuous ranging from 64/23 to 144/38, heart rate now in the 90s, respiratory rate 30s, afebrile. On full mechanical ventilator support. GENERAL: Poorly responsive. LUNGS: Bilateral rhonchi. HEENT: Thin secretions. CARDIAC: Regular rhythm, rate. Normal S1, S2. Monitor now sinus with atrial ectopics and still with paroxysms of AFib. ABDOMEN: Distended, but soft. EXTREMITIES: Trace dependent edema. LABORATORY DATA: White count 25, hemoglobin 7. Sodium 146, potassium 5.3, BUN 51, creatinine 3.8, bicarb 17. Troponin up to 7.5. IMPRESSION: 1. Status post full arrest. 2. Paroxysmal atrial fibrillation. 3. Shock. 4. Sepsis. 5. Dehydration. 6. Acute on chronic renal failure. 7. Acute myocardial infarction. 8. Shock liver. 9. Severe protein-calorie malnutrition. 10. Healthcare-associated pneumonia. PLAN: 1. ICU care. 2. Ventilator support. 3. Taper off pressors. 4. Serial troponins. 5. Review EKG. 6. Hypotonic IV fluids. 7. Antimicrobials per Infectious Disease dairy nutrition consultant. 8. Hold antiarrhythmics for now. Augustine Fisher M.D. DR: LUKASZ JOB#: [id number] CC:
--- NOTE | 2019-08-30 08:01 | NUR ---
HAND-OFF: Report given to Matt MEDINA.
--- NOTE | 2019-08-30 08:02 | NUR ---
NURSE NOTES: Report received from KEHINDE Hall. Pt is obtunded in bed. Opens eyes spontaneously. Eyes do not follow. Do not follow verbal and tactile. Non-verbal. Sinus rhythm with PACs on engine monitor. Trach to vent. P 8. AC 14,Tv 450, FiO2 100%, P 5. O2 sat 100%. RR 30's. Tachypneic and irregular breathing noted. GT is connected to low intermittent suction. Thakkar in place draining marifer colored urine to gravity. Rectal tube in place draining to loose brown BM. LATOYA PICC line patent and asymptomatic. Dopamine at 2mcg/kg/min, Levo at 8mcg/min, and D51/2NS are running at 50cc/hr. Bed in lowest position. Side rails up x3. Will resume plan of care.
[2019-08-30 08:47] LABS: HEMATOCRIT 36.5 % (42.0-52.0); HEMOGLOBIN 11.4 G/DL (14.2-18.0); MEAN CORPUSCULAR VOLUME 101 FL (80-99); PLATELET COUNT 169 K/UL (150-450); RED BLOOD COUNT 3.63 M/UL (4.70-6.10); RED CELL DISTRIBUTION WIDTH 16.2 % (11.6-14.8); WHITE BLOOD COUNT 17.4 K/UL (4.8-10.8)
[2019-08-30] MEDS: Metoprolol Tartrate 50mg tab GT SCH ×2 (09:00→20:34)
[2019-08-30] MEDS: Lisinopril 20mg tab GT SCH ×2 (09:00→20:35)
[2019-08-30] MEDS: Heparin 5000 units/ml inj SUBQ SCH ×2 (09:00→20:36)
--- NOTE | 2019-08-30 09:16 | Pulmonology Progress Note ---
Subjective ROS Limited/Unobtainable: Yes Constitutional: Reports: fever, other - Mx=735.2 in am Allergies: Coded Allergies: No Known Allergies (Unverified , 08/07/19) Subjective remains ill in ICU hypotensive and s/p CPA renal function noted vitals noted family updated Objective Last 24 Hour Vital Signs Date Time Temp Pulse Resp B/P (MAP) Pulse Ox O2 Delivery O2 Flow Rate FiO2 08/30/19 08:00 100 08/30/19 08:00 Mechanical Ventilator 08/30/19 08:00 98.2 92 28 126/40 (68) 100 08/30/19 07:40 91 08/30/19 07:33 129/50 08/30/19 07:30 92 28 133/101 (112) 100 08/30/19 07:16 93 29 100 08/30/19 07:00 91 30 122/21 (54) 100 08/30/19 06:34 92 30 134/54 (80) 100 08/30/19 06:15 92 30 118/52 (74) 100 08/30/19 06:01 118/52 08/30/19 06:01 118/52 08/30/19 06:00 93 31 101/38 (59) 100 08/30/19 05:45 93 30 114/64 (81) 100 08/30/19 05:30 94 28 100/26 (50) 100 08/30/19 05:15 92 29 134/100 (111) 100 08/30/19 05:00 92 29 128/100 (109) 71 08/30/19 05:00 134/100 08/30/19 05:00 134/100 08/30/19 04:45 96 33 118/34 (62) 100 08/30/19 04:30 93 31 121/46 (71) 100 08/30/19 04:15 93 31 145/28 (67) 100 08/30/19 04:00 98.5 93 31 105/48 (67) 100 08/30/19 04:00 94 30 100 08/30/19 04:00 90 08/30/19 04:00 100 08/30/19 04:00 Mechanical Ventilator 08/30/19 04:00 145/28 08/30/19 04:00 145/28 08/30/19 03:45 94 31 129/100 (110) 100 08/30/19 03:30 94 31 110/20 (50) 100 08/30/19 03:15 97 31 115/61 (79) 100 08/30/19 03:00 98.4 95 31 118/52 (74) 100 08/30/19 03:00 115/61 08/30/19 03:00 115/61 08/30/19 02:45 96 30 121/82 (95) 100 08/30/19 02:30 100 30 126/55 (78) 100 08/30/19 02:15 96 30 125/47 (73) 100 08/30/19 02:00 96 30 145/41 (75) 100 08/30/19 02:00 125/47 08/30/19 02:00 125/47 08/30/19 01:45 96 30 136/55 (82) 96 08/30/19 01:30 97 31 128/47 (74) 100 08/30/19 01:15 97 30 123/52 (75) 100 08/30/19 01:00 96 33 137/65 (89) 100 08/30/19 01:00 123/52 08/30/19 01:00 123/52 08/30/19 00:45 95 30 133/48 (76) 100 08/30/19 00:30 94 34 130/77 (94) 88 08/30/19 00:15 95 31 132/49 (76) 100 08/30/19 00:00 100 08/30/19 00:00 92 08/30/19 00:00 132/49 08/30/19 00:00 132/49 08/30/19 00:00 100 08/30/19 00:00 Mechanical Ventilator 08/30/19 00:00 98.5 96 30 121/58 (79) 100 08/29/19 23:45 98 31 116/44 (68) 100 08/29/19 23:30 96 31 120/48 (72) 100 08/29/19 23:15 98 32 131/60 (83) 100 08/29/19 23:13 94 32 100 08/29/19 23:08 122/80 08/29/19 23:00 97 31 127/78 (94) 100 08/29/19 23:00 131/60 08/29/19 23:00 131/60 08/29/19 22:45 95 31 127/54 (78) 100 08/29/19 22:30 94 30 123/18 (53) 100 08/29/19 22:15 96 30 156/39 (78) 100 08/29/19 22:10 116/44 08/29/19 22:00 95 30 144/38 (73) 100 08/29/19 21:45 94 29 135/33 (67) 100 08/29/19 21:30 94 27 149/36 (73) 100 08/29/19 21:15 98 26 149/33 (71) 48 08/29/19 21:00 100 23 139/31 (67) 08/29/19 21:00 120/56 08/29/19 21:00 120/56 08/29/19 20:56 82/32 08/29/19 20:55 82/36 08/29/19 20:55 92 82/32 08/29/19 20:45 96 14 123/21 (55) 08/29/19 20:30 94 17 70/19 (36) 08/29/19 20:15 97 18 88/37 (54) 08/29/19 20:11 98 30 100 08/29/19 20:00 93 08/29/19 20:00 97.8 100 19 90/56 (67) 08/29/19 20:00 120/34 08/29/19 20:00 Mechanical Ventilator 08/29/19 19:45 110 29 136/32 (66) 08/29/19 19:35 83 15 64/23 (37) 77 08/29/19 19:30 91 25 69/24 (39) 08/29/19 19:15 88 15 82/46 (58) 94 08/29/19 19:00 100 08/29/19 19:00 82 14 81/21 (41) 91 08/29/19 19:00 81/21 08/29/19 18:45 99 14 107/26 (53) 63 08/29/19 18:38 119 17 196/33 (87) 08/29/19 18:35 125 19 187/44 (91) 08/29/19 18:31 81 29 151/93 (112) 08/29/19 18:30 128 28 111/18 (49) 84 08/29/19 18:25 46 14 44/17 (26) 08/29/19 18:23 54 16 48/36 (40) 08/29/19 18:15 70 17 109/32 (57) 08/29/19 18:02 85 23 116/34 (61) 98 08/29/19 18:00 110/32 08/29/19 18:00 40 08/29/19 17:45 83 13 110/32 (58) 96 08/29/19 17:30 83 25 124/32 (62) 95 08/29/19 17:25 114/46 08/29/19 17:02 85 27 110/42 (64) 93 08/29/19 17:00 110/42 08/29/19 16:45 89 51 130/35 (66) 93 08/29/19 16:30 89 53 125/35 (65) 94 08/29/19 16:15 92 56 132/33 (66) 94 08/29/19 16:00 70 08/29/19 16:00 91 08/29/19 16:00 Mechanical Ventilator 08/29/19 16:00 132/33 08/29/19 16:00 99.4 91 55 135/51 (79) 94 08/29/19 15:30 94 44 142/50 (80) 94 08/29/19 15:00 139/60 08/29/19 15:00 98 42 157/70 (99) 94 08/29/19 14:30 95 33 40 08/29/19 14:30 99 26 132/59 (83) 95 08/29/19 14:00 88 33 108/26 (53) 97 08/29/19 14:00 108/26 08/29/19 13:45 89 29 112/18 (49) 96 08/29/19 13:30 90 35 108/26 (53) 99 08/29/19 13:00 95/65 08/29/19 13:00 89 32 95/65 (75) 95 08/29/19 12:45 96/29 08/29/19 12:30 100 31 102/33 (56) 97 08/29/19 12:15 101.7 97 15 102/35 (57) 97 08/29/19 12:00 Mechanical Ventilator 08/29/19 12:00 100 08/29/19 12:00 104 20 109/40 (63) 98 08/29/19 12:00 70 08/29/19 12:00 109/40 08/29/19 11:38 70 08/29/19 11:30 106 22 117/79 (92) 100 08/29/19 11:21 102.6 08/29/19 11:15 103 38 100 08/29/19 11:00 103 25 106/62 (77) 100 08/29/19 11:00 106/62 08/29/19 10:45 101 21 112/96 (101) 100 08/29/19 10:30 103.0 103 19 98/53 (68) 100 08/29/19 10:15 103 18 103/26 (51) 100 08/29/19 10:00 104 20 111/81 (91) 100 08/29/19 10:00 103/26 08/29/19 09:45 106 19 100/31 (54) 100 08/29/19 09:30 105 22 85/42 (56) 99 08/29/19 09:15 104 23 89/44 (59) 100 Intake and Output 08/29/19 08/30/19 19:00 07:00 Intake Total 1741.895 ml 1878.468 ml Output Total 1015 ml 120 ml Balance 726.895 ml 1758.468 ml IV Total 1541.895 ml 978.468 ml Tube Feeding 0 ml 0 ml Blood Product 900 ml Other 200 ml Output Urine Total 15 ml 0 ml Stool Total 0 ml 20 ml Gastric Drainage Total 1000 ml 100 ml # Voids 10 Objective WDWN trach poorly responsive reduced breath sounds bilaterally without rhonchi or wheeze [id number] tachy without MRG NABS nontender no CCE reduced LOC Microbiology Date/Time Source Procedure Growth Status 08/27/19 16:55 Stool Clostridium difficile Toxin Assay - Final Complete Laboratory Tests 08/29/19 09:50: White Blood Count 12.0H, Red Blood Count 3.17L, Hemoglobin 10.0L, Hematocrit 32.6L, Mean Corpuscular Volume 103H, Mean Corpuscular Hemoglobin 31.5H, Mean Corpuscular Hemoglobin Concent 30.6L, Red Cell Distribution Width 16.3H, Platelet Count 250, Mean Platelet Volume 7.8, Neutrophils (%) (Auto) 81.7H, Lymphocytes (%) (Auto) 12.6L, Monocytes (%) (Auto) 4.7, Eosinophils (%) (Auto) 0.0, Basophils (%) (Auto) 1.0, Sodium Level 144, Potassium Level 4.7, Chloride Level 110H, Carbon Dioxide Level 21, Anion Gap 14, Blood Urea Nitrogen 44H, Creatinine 3.2#H, Estimat Glomerular Filtration Rate 23.1, Glucose Level 105, Calcium Level 7.4L, Magnesium Level 1.9, Total Bilirubin 1.0, Aspartate Amino Transf (AST/SGOT) 199H, Alanine Aminotransferase (ALT/SGPT) 99H, Alkaline Phosphatase 83, Troponin I 1.336H, Total Protein 6.2L, Albumin 1.3L, Globulin 4.9, Albumin/Globulin Ratio 0.3L 08/29/19 18:33: POC Whole Blood Glucose 100 08/29/19 19:35: White Blood Count 25.2#*H, Red Blood Count 2.20L, Hemoglobin 7.0L, Hematocrit 23.3L, Mean Corpuscular Volume 106H, Mean Corpuscular Hemoglobin 32.0H, Mean Corpuscular Hemoglobin Concent 30.2L, Red Cell Distribution Width 17.5H, Platelet Count 280, Mean Platelet Volume 10.3H, Neutrophils (%) (Auto) , Lymphocytes (%) (Auto) , Monocytes (%) (Auto) , Eosinophils (%) (Auto) , Basophils (%) (Auto) , Sodium Level 146H, Potassium Level 5.3H, Chloride Level 112H, Carbon Dioxide Level 17L, Anion Gap 17H, Blood Urea Nitrogen 51H, Creatinine 3.8H, Estimat Glomerular Filtration Rate 18.9, Glucose Level 94, Calcium Level 6.9L, Total Bilirubin 0.7, Aspartate Amino Transf (AST/SGOT) 275H , Alanine Aminotransferase (ALT/SGPT) 149H, Alkaline Phosphatase 79, Troponin I 7.518H, Total Protein 5.4L, Albumin 1.1L, Globulin 4.3, Albumin/Globulin Ratio 0.3L, Differential Total Cells Counted 100, Neutrophils % (Manual) 46, Lymphocytes % (Manual) 17L, Monocytes % (Manual) 3, Eosinophils % (Manual) 0, Basophils % (Manual) 0, Metamyelocytes % 6H, Myelocytes % 1H, Band Neutrophils 27H, Nucleated Red Blood Cells 2, Platelet Estimate Adequate, Platelet Morphology Normal, Polychromasia 1+, Hypochromasia 1+, Anisocytosis 2+, Macrocytosis 2+ 08/30/19 08:10: White Blood Count 17.4H, Red Blood Count 3.63L, Hemoglobin 11.4#L, Hematocrit 36.5#L, Mean Corpuscular Volume 101H, Mean Corpuscular Hemoglobin 31.4H, Mean Corpuscular Hemoglobin Concent 31.2L, Red Cell Distribution Width 16.2H, Platelet Count 169, Mean Platelet Volume 8.8, Neutrophils (%) (Auto) , Lymphocytes (%) (Auto) , Monocytes (%) (Auto) , Eosinophils (%) (Auto) , Basophils (%) (Auto) , Sodium Level [Pending], Potassium Level [Pending], Chloride Level [Pending], Carbon Dioxide Level [Pending], Blood Urea Nitrogen [ Pending], Creatinine [Pending], Estimat Glomerular Filtration Rate [Pending], Glucose Level [Pending], Calcium Level [Pending], Total Bilirubin [Pending], Aspartate Amino Transf (AST/SGOT) [Pending], Alanine Aminotransferase (ALT/SGPT ) [Pending], Alkaline Phosphatase [Pending], Troponin I 18.244H, Total Protein [ Pending], Albumin [Pending], Globulin [Pending], Neutrophils % (Manual) [Pending ], Lymphocytes % (Manual) [Pending], Platelet Estimate [Pending], Platelet Morphology [Pending], Lactic Acid Level [Pending] Current Medications Medications (Trade) Dose Ordered Sig/Nury Route PRN Reason Start Time Stop Time Status Last Admin Dose Admin Acetaminophen (Tylenol) 325 mg Q6H PRN RECTAL Temp >100.5 08/28/19 03:45 09/07/19 21:44 Acetaminophen (Tylenol) 650 mg Q4H PRN GT Mild Pain (Pain Scale 1-3) 08/28/19 06:45 09/07/19 10:44 08/29/19 10:51 Acetaminophen (Tylenol) 650 mg Q4H PRN GT Temp >100.5 08/28/19 06:45 09/07/19 10:44 Amantadine HCl (Symmetrel) 100 mg DAILY GT 08/28/19 09:00 09/08/19 08:59 08/29/19 09:04 Amiodarone HCl 900 mg/Dextrose 500 ml @ 16.66 mls/ hr ONCE IV 08/29/19 18:30 08/30/19 18:30 Ascorbic Acid (Vitamin C) 250 mg DAILY GT 08/28/19 09:00 09/08/19 08:59 08/29/19 09:04 Chlorhexidine Gluconate (Milagros-Hex 2%) 1 applic DAILY@2000 TOPIC 08/28/19 20:00 11/26/19 19:59 08/29/19 20:00 Dextrose/Sodium Chloride 1,000 ml @ 50 mls/hr Q20H IV 08/29/19 08:00 09/28/19 19:59 08/30/19 04:00 Dopamine HCl/ Dextrose 250 ml @ 0 mls/hr Q24H IV 08/29/19 20:02 11/27/19 20:01 08/29/19 20:55 Folic Acid (Folate) 1 mg DAILY GT 08/28/19 09:00 09/07/19 14:29 08/29/19 09:04 Heparin Sodium (Porcine) (Heparin 5000 units/ml) 5,000 units EVERY 12 HOURS SUBQ 08/28/19 21:00 10/12/19 20:59 08/29/19 09:09 Heparin Sodium/ Sodium Chloride (Heparin 1000 units/500ml Premix) 1,000 unit ONCE PRN IV picc line placement 08/28/19 13:30 08/30/19 13:29 Hydralazine HCl (Apresoline) 10 mg Q6H PRN GT SBP above 160 08/28/19 04:00 11/26/19 03:59 Hydralazine HCl (Apresoline) 10 mg Q6H PRN IV SBP> 160 08/28/19 03:45 11/06/19 21:44 08/28/19 15:23 Lidocaine HCl (Xylocaine 1% 30ml) 30 ml ONCE PRN INJ picc line placement 08/28/19 13:30 08/30/19 13:29 Lisinopril (PriniviL) 20 mg Q12HR GT 08/28/19 09:00 09/07/19 20:59 08/28/19 21:00 Lorazepam (Ativan 2mg/ml 1ml) 1 mg Q2H PRN IV For Anxiety 08/28/19 18:20 09/04/19 18:19 08/28/19 18:30 Metoprolol Tartrate (Lopressor) 50 mg Q12HR GT 08/28/19 09:00 11/24/19 08:59 08/28/19 22:13 Metronidazole 100 ml @ 100 mls/hr Q8HR IVPB 08/28/19 22:45 09/04/19 22:44 08/30/19 06:01 Multivitamins (Multivitamins) 1 tab DAILY GT 08/28/19 09:00 09/08/19 08:59 08/29/19 09:07 Norepinephrine Bitartrate 8 mg/ Dextrose 500 ml @ 0 mls/hr Q24H IV 08/29/19 07:45 09/28/19 07:44 08/30/19 07:33 Pantoprazole (Protonix) 40 mg DAILY IVP 08/29/19 09:00 09/08/19 22:59 08/29/19 09:04 Vancomycin HCl (Firvanq) 125 mg FOUR TIMES A DAY ORAL 08/28/19 13:00 09/04/19 12:59 08/29/19 20:57 Assessment/Plan Assessment/Plan anemia SVT respiratory failure trach chronic encephalopathy GT site infection with replacement low K severe protein calorie malnutrition hypotension s/p CPA electrolyte imbalance acute CT elevated troponin PLAN pressors close cardiology follow up hold antihypertensives vent support feeds per gi - GT care wound care monitor HH renal to see ID follow up critical at present ICU care needed critical impression, plan, and exam edited and reviewed in detail care discussed with Isaiah Villatoro MD Aug 30, 2019 09:16
[2019-08-30 09:21] LABS: ALANINE AMINOTRANSFERASE 267 U/L (12-78); ALBUMIN 1.3 G/DL (3.4-5.0); ALBUMIN/GLOBULIN RATIO 0.3 (1.0-2.7); ALKALINE PHOSPHATASE 92 U/L (46-116); ANION GAP 13 mmol/L (5-15); ASPARTATE AMINO TRANSFERASE 468 U/L (15-37); BILIRUBIN,TOTAL 1.2 MG/DL (0.2-1.0); BLOOD UREA NITROGEN 58 mg/dL (7-18); CALCIUM 6.3 MG/DL (8.5-10.1); CARBON DIOXIDE 20 MMOL/L (21-32); CHLORIDE 110 MMOL/L (98-107); POTASSIUM 4.9 MMOL/L (3.5-5.1); SODIUM 142 MMOL/L (136-145)
[2019-08-30] MEDS: Amantadine 100mg cap GT SCH (09:21)
[2019-08-30] MEDS: Ascorbic Acid 500mg tab GT SCH (09:21)
[2019-08-30] MEDS: Pantoprazole Inj IVP SCH (09:22)
[2019-08-30] MEDS: Vancomycin oral 125mg/2.5ml ORAL SCH ×4 (09:22→20:36)
--- NOTE | 2019-08-30 10:01 | NUR ---
RADIOLOGY DEPT., CHEST AND ABDOMEN X-RAYS PERFORMED.-P.DYE
--- NOTE | 2019-08-30 10:10 | NUR ---
NURSE NOTES: Dr Fisher here to see the patient. Updated him with patient's current condition including elevated Troponin level. Orders received, noted, and carried out.
--- NOTE | 2019-08-30 10:30 | NUR ---
NURSE NOTES: Stopped Dopamine as ordered. Titrated down Levophed to 6mcg/min for BP 129/46. Will continue to monitor.
--- NOTE | 2019-08-30 10:35 | NUR ---
ROASTERMAN NOTE:INSURANCE VM RECEIVED FROM [employer] WITH [facility] WITH REQUEST TO CALL WITH UPDATE ON PATIENT STATUS CALL MADE TO [employer] @ [phone]. VERBAL REPORT GIVEN ON PATIENT CURRENT ICU STATUS PER [employer], PATIENT MEETS CRITERIA FOR ICU STATUS
--- NOTE | 2019-08-30 10:54 | Infectious Diseases Prog Note ---
"Assessment/Plan Assessment/Plan antibiotics : GT vancomycin, flagyl A 1. pseudomonas | providencia pneumonia s/p rx COVID negative x 2 2. klebsiella | pseudomonas | VRE Gt site cellulitis 3. respiratory failure 4. leucocytosis resolved 5. s/p GT placement 6. C.diff colitis 7. fever P 1. continue GT vancomycin, iv flagyl 2. start linezolid, cefepime 3. blood culture 4. UA and urine culture 5. sputum culture 6. will follow up cultures Subjective ROS Limited/Unobtainable: Yes Allergies: Coded Allergies: No Known Allergies (Unverified , 08/07/19) Objective Last 24 Hour Vital Signs Date Time Temp Pulse Resp B/P (MAP) Pulse Ox O2 Delivery O2 Flow Rate FiO2 08/30/19 08:00 100 08/30/19 08:00 Mechanical Ventilator 08/30/19 08:00 98.2 92 28 126/40 (68) 100 08/30/19 07:40 91 08/30/19 07:33 129/50 08/30/19 07:30 92 28 133/101 (112) 100 08/30/19 07:16 93 29 100 08/30/19 07:00 91 30 122/21 (54) 100 08/30/19 06:34 92 30 134/54 (80) 100 08/30/19 06:15 92 30 118/52 (74) 100 08/30/19 06:01 118/52 08/30/19 06:01 118/52 08/30/19 06:00 93 31 101/38 (59) 100 08/30/19 05:45 93 30 114/64 (81) 100 08/30/19 05:30 94 28 100/26 (50) 100 08/30/19 05:15 92 29 134/100 (111) 100 08/30/19 05:00 92 29 128/100 (109) 71 08/30/19 05:00 134/100 08/30/19 05:00 134/100 08/30/19 04:45 96 33 118/34 (62) 100 08/30/19 04:30 93 31 121/46 (71) 100 08/30/19 04:15 93 31 145/28 (67) 100 08/30/19 04:00 98.5 93 31 105/48 (67) 100 08/30/19 04:00 94 30 100 08/30/19 04:00 90 08/30/19 04:00 100 08/30/19 04:00 Mechanical Ventilator 08/30/19 04:00 145/28 08/30/19 04:00 145/28 08/30/19 03:45 94 31 129/100 (110) 100 08/30/19 03:30 94 31 110/20 (50) 100 08/30/19 03:15 97 31 115/61 (79) 100 08/30/19 03:00 98.4 95 31 118/52 (74) 100 08/30/19 03:00 115/61 08/30/19 03:00 115/61 08/30/19 02:45 96 30 121/82 (95) 100 08/30/19 02:30 100 30 126/55 (78) 100 08/30/19 02:15 96 30 125/47 (73) 100 08/30/19 02:00 96 30 145/41 (75) 100 08/30/19 02:00 125/47 08/30/19 02:00 125/47 08/30/19 01:45 96 30 136/55 (82) 96 08/30/19 01:30 97 31 128/47 (74) 100 08/30/19 01:15 97 30 123/52 (75) 100 08/30/19 01:00 96 33 137/65 (89) 100 08/30/19 01:00 123/52 08/30/19 01:00 123/52 08/30/19 00:45 95 30 133/48 (76) 100 08/30/19 00:30 94 34 130/77 (94) 88 08/30/19 00:15 95 31 132/49 (76) 100 08/30/19 00:00 100 08/30/19 00:00 92 08/30/19 00:00 132/49 08/30/19 00:00 132/49 08/30/19 00:00 100 08/30/19 00:00 Mechanical Ventilator 08/30/19 00:00 98.5 96 30 121/58 (79) 100 08/29/19 23:45 98 31 116/44 (68) 100 08/29/19 23:30 96 31 120/48 (72) 100 08/29/19 23:15 98 32 131/60 (83) 100 08/29/19 23:13 94 32 100 08/29/19 23:08 122/80 08/29/19 23:00 97 31 127/78 (94) 100 08/29/19 23:00 131/60 08/29/19 23:00 131/60 08/29/19 22:45 95 31 127/54 (78) 100 08/29/19 22:30 94 30 123/18 (53) 100 08/29/19 22:15 96 30 156/39 (78) 100 08/29/19 22:10 116/44 08/29/19 22:00 95 30 144/38 (73) 100 08/29/19 21:45 94 29 135/33 (67) 100 08/29/19 21:30 94 27 149/36 (73) 100 08/29/19 21:15 98 26 149/33 (71) 48 08/29/19 21:00 100 23 139/31 (67) 08/29/19 21:00 120/56 08/29/19 21:00 120/56 08/29/19 20:56 82/32 08/29/19 20:55 82/36 08/29/19 20:55 92 82/32 08/29/19 20:45 96 14 123/21 (55) 08/29/19 20:30 94 17 70/19 (36) 08/29/19 20:15 97 18 88/37 (54) 08/29/19 20:11 98 30 100 08/29/19 20:00 93 08/29/19 20:00 97.8 100 19 90/56 (67) 08/29/19 20:00 120/34 08/29/19 20:00 Mechanical Ventilator 08/29/19 19:45 110 29 136/32 (66) 08/29/19 19:35 83 15 64/23 (37) 77 08/29/19 19:30 91 25 69/24 (39) 08/29/19 19:15 88 15 82/46 (58) 94 08/29/19 19:00 100 08/29/19 19:00 82 14 81/21 (41) 91 08/29/19 19:00 81/21 08/29/19 18:45 99 14 107/26 (53) 63 6/30/20 18:38 119 17 196/33 (87) 08/29/19 18:35 125 19 187/44 (91) 08/29/19 18:31 81 29 151/93 (112) 08/29/19 18:30 128 28 111/18 (49) 84 08/29/19 18:25 46 14 44/17 (26) 08/29/19 18:23 54 16 48/36 (40) 08/29/19 18:15 70 17 109/32 (57) 08/29/19 18:02 85 23 116/34 (61) 98 08/29/19 18:00 110/32 08/29/19 18:00 40 08/29/19 17:45 83 13 110/32 (58) 96 08/29/19 17:30 83 25 124/32 (62) 95 08/29/19 17:25 114/46 08/29/19 17:02 85 27 110/42 (64) 93 08/29/19 17:00 110/42 08/29/19 16:45 89 51 130/35 (66) 93 08/29/19 16:30 89 53 125/35 (65) 94 08/29/19 16:15 92 56 132/33 (66) 94 08/29/19 16:00 70 08/29/19 16:00 91 08/29/19 16:00 Mechanical Ventilator 08/29/19 16:00 132/33 08/29/19 16:00 99.4 91 55 135/51 (79) 94 08/29/19 15:30 94 44 142/50 (80) 94 08/29/19 15:00 139/60 08/29/19 15:00 98 42 157/70 (99) 94 08/29/19 14:30 95 33 40 08/29/19 14:30 99 26 132/59 (83) 95 08/29/19 14:00 88 33 108/26 (53) 97 08/29/19 14:00 108/26 08/29/19 13:45 89 29 112/18 (49) 96 08/29/19 13:30 90 35 108/26 (53) 99 08/29/19 13:00 95/65 08/29/19 13:00 89 32 95/65 (75) 95 08/29/19 12:45 96/29 08/29/19 12:30 100 31 102/33 (56) 97 08/29/19 12:15 101.7 97 15 102/35 (57) 97 08/29/19 12:00 Mechanical Ventilator 08/29/19 12:00 100 08/29/19 12:00 104 20 109/40 (63) 98 08/29/19 12:00 70 08/29/19 12:00 109/40 08/29/19 11:38 70 08/29/19 11:30 106 22 117/79 (92) 100 08/29/19 11:21 102.6 08/29/19 11:15 103 38 100 08/29/19 11:00 103 25 106/62 (77) 100 08/29/19 11:00 106/62 Height (Feet): 5 Height (Inches): 10.00 Weight (Pounds): 250 HEENT: status post trach Respiratory/Chest: lungs clear Cardiovascular: normal rate, regular rhythm, no gallop/murmur Abdomen: soft, non tender, other - GT Extremities: no edema, other - left arm PICC Microbiology Date/Time Source Procedure Growth Status 08/27/19 16:55 Stool Clostridium difficile Toxin Assay - Final Complete Laboratory Tests Test 08/29/19 18:33 08/29/19 19:35 08/30/19 08:10 POC Whole Blood Glucose 100 MG/DL (74-106) White Blood Count 25.2 K/UL (4.8-10.8) #*H 17.4 K/UL (4.8-10.8) H Red Blood Count 2.20 M/UL (4.70-6.10) L 3.63 M/UL (4.70-6.10) L Hemoglobin 7.0 G/DL (14.2-18.0) L 11.4 G/DL (14.2-18.0) #L Hematocrit 23.3 % (42.0-52.0) L 36.5 % (42.0-52.0) #L Mean Corpuscular Volume 106 FL (80-99) H 101 FL (80-99) H Mean Corpuscular Hemoglobin 32.0 PG (27.0-31.0) H 31.4 PG (27.0-31.0) H Mean Corpuscular Hemoglobin Concent 30.2 G/DL (32.0-36.0) L 31.2 G/DL (32.0-36.0) L Red Cell Distribution Width 17.5 % (11.6-14.8) H 16.2 % (11.6-14.8) H Platelet Count 280 K/UL (150-450) 169 K/UL (150-450) Mean Platelet Volume 10.3 FL (6.5-10.1) H 8.8 FL (6.5-10.1) Neutrophils (%) (Auto) % (45.0-75.0) % (45.0-75.0) Lymphocytes (%) (Auto) % (20.0-45.0) % (20.0-45.0) Monocytes (%) (Auto) % (1.0-10.0) % (1.0-10.0) Eosinophils (%) (Auto) % (0.0-3.0) % (0.0-3.0) Basophils (%) (Auto) % (0.0-2.0) % (0.0-2.0) Differential Total Cells Counted 100 100 Neutrophils % (Manual) 46 % (45-75) 76 % (45-75) H Lymphocytes % (Manual) 17 % (20-45) L 5 % (20-45) L Monocytes % (Manual) 3 % (1-10) 2 % (1-10) Eosinophils % (Manual) 0 % (0-3) 0 % (0-3) Basophils % (Manual) 0 % (0-2) 0 % (0-2) Metamyelocytes % 6 % (0-0) H Myelocytes % 1 % (0-0) H Band Neutrophils 27 % (0-8) H 17 % (0-8) H Nucleated Red Blood Cells 2 /100 WBC Platelet Estimate Adequate Adequate Platelet Morphology Normal Normal Polychromasia 1+ Hypochromasia 1+ Anisocytosis 2+ 1+ Macrocytosis 2+ 1+ Sodium Level 146 MMOL/L (136-145) H 142 MMOL/L (136-145) Potassium Level 5.3 MMOL/L (3.5-5.1) H 4.9 MMOL/L (3.5-5.1) Chloride Level 112 MMOL/L (98-107) H 110 MMOL/L (98-107) H Carbon Dioxide Level 17 MMOL/L (21-32) L 20 MMOL/L (21-32) L Anion Gap 17 mmol/L (5-15) H 13 mmol/L (5-15) Blood Urea Nitrogen 51 mg/dL (7-18) H 58 mg/dL (7-18) H Creatinine 3.8 MG/DL (0.55-1.30) H 4.0 MG/DL (0.55-1.30) H Estimat Glomerular Filtration Rate 18.9 mL/min (>60) 17.9 mL/min (>60) Glucose Level 94 MG/DL (74-106) 111 MG/DL (74-106) H Calcium Level 6.9 MG/DL (8.5-10.1) L 6.3 MG/DL (8.5-10.1) L Total Bilirubin 0.7 MG/DL (0.2-1.0) 1.2 MG/DL (0.2-1.0) H Aspartate Amino Transf (AST/SGOT) 275 U/L (15-37) H 468 U/L (15-37) H Alanine Aminotransferase (ALT/SGPT) 149 U/L (12-78) H 267 U/L (12-78) H Alkaline Phosphatase 79 U/L (46-116) 92 U/L (46-116) Troponin I 7.518 ng/mL (0.000-0.056) 18.244 ng/mL (0.000-0.056) Total Protein 5.4 G/DL (6.4-8.2) L 5.2 G/DL (6.4-8.2) L Albumin 1.1 G/DL (3.4-5.0) L 1.3 G/DL (3.4-5.0) L Globulin 4.3 g/dL 3.9 g/dL Albumin/Globulin Ratio 0.3 (1.0-2.7) L 0.3 (1.0-2.7) L Lactic Acid Level 3.20 mmol/L (0.4-2.0) H Direct Bilirubin 1.0 MG/DL (0.0-0.3) H Current Medications Medications (Trade) Dose Ordered Sig/Nury Route PRN Reason Start Time Stop Time Status Last Admin Dose Admin Acetaminophen (Tylenol) 325 mg Q6H PRN RECTAL Temp >100.5 08/28/19 03:45 09/07/19 21:44 Acetaminophen (Tylenol) 650 mg Q4H PRN GT Mild Pain (Pain Scale 1-3) 08/28/19 06:45 09/07/19 10:44 08/29/19 10:51 Acetaminophen (Tylenol) 650 mg Q4H PRN GT Temp >100.5 08/28/19 06:45 09/07/19 10:44 Amantadine HCl (Symmetrel) 100 mg DAILY GT 08/28/19 09:00 09/08/19 08:59 08/30/19 09:21 Ascorbic Acid (Vitamin C) 250 mg DAILY GT 08/28/19 09:00 09/08/19 08:59 08/30/19 09:21 Chlorhexidine Gluconate (Milagros-Hex 2%) 1 applic DAILY@2000 TOPIC 08/28/19 20:00 11/26/19 19:59 08/29/19 20:00 Dextrose/Sodium Chloride 1,000 ml @ 50 mls/hr Q20H IV 08/29/19 08:00 09/28/19 19:59 08/30/19 04:00 Folic Acid (Folate) 1 mg DAILY GT 08/28/19 09:00 09/07/19 14:29 08/30/19 09:21 Heparin Sodium (Porcine) (Heparin 5000 units/ml) 5,000 units EVERY 12 HOURS SUBQ 08/28/19 21:00 10/12/19 20:59 08/29/19 09:09 Heparin Sodium/ Sodium Chloride (Heparin 1000 units/500ml Premix) 1,000 unit ONCE PRN IV picc line placement 08/28/19 13:30 08/30/19 13:29 Hydralazine HCl (Apresoline) 10 mg Q6H PRN GT SBP above 160 08/28/19 04:00 11/26/19 03:59 Hydralazine HCl (Apresoline) 10 mg Q6H PRN IV SBP> 160 08/28/19 03:45 11/06/19 21:44 08/28/19 15:23 Lidocaine HCl (Xylocaine 1% 30ml) 30 ml ONCE PRN INJ picc line placement 08/28/19 13:30 08/30/19 13:29 Lisinopril (PriniviL) 20 mg Q12HR GT 08/28/19 09:00 09/07/19 20:59 08/28/19 21:00 Lorazepam (Ativan 2mg/ml 1ml) 1 mg Q2H PRN IV For Anxiety 08/28/19 18:20 09/04/19 18:19 08/28/19 18:30 Metoprolol Tartrate (Lopressor) 50 mg Q12HR GT 08/28/19 09:00 11/24/19 08:59 08/28/19 22:13 Metronidazole 100 ml @ 100 mls/hr Q8HR IVPB 08/28/19 22:45 09/04/19 22:44 08/30/19 06:01 Multivitamins (Multivitamins) 1 tab DAILY GT 08/28/19 09:00 09/08/19 08:59 08/30/19 09:21 Norepinephrine Bitartrate 8 mg/ Dextrose 500 ml @ 0 mls/hr Q24H IV 08/29/19 07:45 09/28/19 07:44 08/30/19 07:33 Pantoprazole (Protonix) 40 mg DAILY IVP 08/29/19 09:00 09/08/19 22:59 08/30/19 09:22 Vancomycin HCl (Firvanq) 125 mg FOUR TIMES A DAY ORAL 08/28/19 13:00 09/04/19 12:59 08/30/19 09:22 Jude Ochoa MD Aug 30, 2019 10:54"
--- NOTE | 2019-08-30 12:10 | NUR ---
NURSE NOTES: Afebrile. Turned and repositioned patient. Oral care done. RR 27, O2 sat 99-100% on FiO2 100%. Will continue to monitor.
--- NOTE | 2019-08-30 12:47 | NUR ---
CASE MANAGEMENT:REVIEW SI;A-FIB W/RVR. ENCEPHALOPATHY. HYPOTENSION. RESPIRATORY FAILURE ON VENT SUPPORT 98.8 101 31 100/26 99% TRACH/VENT FIO2 @ 100% IS;LEVOPHED IV PROTONIX IV BQD IVF D52 @ 50 ML/HR HEPARIN SUBQ Q12 METRONIDAZOLE IV Q8 LORAZEPAM IV LINEZOLID IV Q12 CEFEPIME IV Q24 VANCOMYCIN PO QID ICU STATUS DCP;PATIENT IS FROM [facility]
[2019-08-30] MEDS: Cefepime HCl 2 GM in D5W 55 ML IVPB SCH (13:15)
--- NOTE | 2019-08-30 14:04 | NUR ---
*-* INSURANCE *-* UPDATED CLINICALS AND REVIEWS HAVE BEEN FAXED TO: [facility] F: [phone] REF#[id number]
--- NOTE | 2019-08-30 14:30 | NUR ---
NURSE NOTES: BP 109/35, HR 95. Will keep Levophed at 4mcg/min. Neuro status still the same. Eyes opened spontaneously but do not follow nor respond to tactile stimuli. Will continue to monitor.
--- NOTE | 2019-08-30 14:49 | Diagnostic Imaging Report ---
Indication: Abnormal chest sounds Technique: One view of the chest Comparison: 08/28/2019 Findings: Less optimal inspiration currently. There appears to be increasing retrocardiac consolidation. However, right basilar infiltrate appears slightly improved. Tracheostomy remains. There are overlying defibrillator paddles Impression: Slightly worsened retrocardiac infiltrate, but slightly improved right basilar infiltrate, over 2 days
--- NOTE | 2019-08-30 15:37 | Diagnostic Imaging Report ---
Indication: Abdominal distention Technique: Supine view of the abdomen Comparison: 08/28/2019 Findings: There is markedly decreased gaseous distention of small bowel, although some borderline dilated small bowel loops are seen in the upper abdomen. There is a Thakkar catheter in place. Defibrillator paddles are noted. Impression: Improved small bowel distention, over 2 days
[2019-08-30] MEDS ORDERED: D5 1/2NS 1000ml IV ONE (15:52)
[2019-08-30] MEDS ORDERED: NS 500ML ONE (15:52)
[2019-08-30] MEDS ORDERED: NS 275ml ONE ×2 (15:52→15:53)
[2019-08-30] MEDS ORDERED: Tubing IV Secondary IV ONE (15:52)
--- NOTE | 2019-08-30 16:00 | NUR ---
NURSE NOTES: Family members came and visited the patient. Irrgular breathing and abdominal accessary muscle use still noted. O2 sat 98-99% on FiO2 100%. RR 30-32. Will continue to monitor.
--- NOTE | 2019-08-30 16:51 | Surgery Progress Note ---
Surgery Progress Note Subjective Symptoms: worse Additional Comments Worsening chest x-ray improved KUB family at bedside ill-appearing prognosis guarded Objective Last 24 Hour Vital Signs Date Time Temp Pulse Resp B/P (MAP) Pulse Ox O2 Delivery O2 Flow Rate FiO2 08/30/19 16:00 99 24 106/54 (71) 99 08/30/19 16:00 97 08/30/19 16:00 100 08/30/19 16:00 Mechanical Ventilator 08/30/19 15:30 97 25 121/50 (73) 98 08/30/19 15:19 95 08/30/19 15:00 93 25 116/58 (77) 99 08/30/19 14:45 99 27 103/38 (59) 98 08/30/19 14:39 96 33 100 08/30/19 14:30 99 21 109/35 (59) 99 08/30/19 14:15 94 27 124/56 (78) 94 08/30/19 14:00 95 22 117/52 (73) 99 08/30/19 13:30 94 20 117/52 (73) 100 08/30/19 13:00 96 23 111/53 (72) 100 08/30/19 13:00 111/53 08/30/19 12:30 93 24 118/47 (70) 99 08/30/19 12:00 98.8 93 25 121/45 (70) 99 08/30/19 12:00 121/45 08/30/19 12:00 90 08/30/19 12:00 100 08/30/19 12:00 Mechanical Ventilator 08/30/19 11:30 96 23 133/53 (79) 99 08/30/19 11:15 94 23 126/54 (78) 98 08/30/19 11:13 101 29 100 08/30/19 11:00 128/57 08/30/19 11:00 91 23 128/57 (80) 100 08/30/19 10:45 93 26 115/44 (67) 99 08/30/19 10:30 91 26 129/46 (73) 100 08/30/19 10:30 129/46 08/30/19 10:00 131/81 08/30/19 10:00 131/18 08/30/19 10:00 90 28 131/18 (55) 99 08/30/19 09:30 91 28 135/44 (74) 98 08/30/19 09:00 91 27 122/30 (60) 98 08/30/19 09:00 122/30 08/30/19 09:00 122/30 08/30/19 08:30 91 28 134/47 (76) 98 08/30/19 08:00 100 08/30/19 08:00 126/40 08/30/19 08:00 126/40 08/30/19 08:00 Mechanical Ventilator 08/30/19 08:00 98.2 92 28 126/40 (68) 100 08/30/19 07:40 91 08/30/19 07:33 129/50 08/30/19 07:30 92 28 133/101 (112) 100 08/30/19 07:16 93 29 100 08/30/19 07:00 122/21 08/30/19 07:00 122/21 08/30/19 07:00 91 30 122/21 (54) 100 08/30/19 06:34 92 30 134/54 (80) 100 08/30/19 06:15 92 30 118/52 (74) 100 08/30/19 06:01 118/52 08/30/19 06:01 118/52 08/30/19 06:00 93 31 101/38 (59) 100 08/30/19 05:45 93 30 114/64 (81) 100 08/30/19 05:30 94 28 100/26 (50) 100 08/30/19 05:15 92 29 134/100 (111) 100 08/30/19 05:00 92 29 128/100 (109) 71 08/30/19 05:00 134/100 08/30/19 05:00 134/100 08/30/19 04:45 96 33 118/34 (62) 100 08/30/19 04:30 93 31 121/46 (71) 100 08/30/19 04:15 93 31 145/28 (67) 100 08/30/19 04:00 98.5 93 31 105/48 (67) 100 08/30/19 04:00 94 30 100 08/30/19 04:00 90 08/30/19 04:00 100 08/30/19 04:00 Mechanical Ventilator 08/30/19 04:00 145/28 08/30/19 04:00 145/28 08/30/19 03:45 94 31 129/100 (110) 100 08/30/19 03:30 94 31 110/20 (50) 100 08/30/19 03:15 97 31 115/61 (79) 100 08/30/19 03:00 98.4 95 31 118/52 (74) 100 08/30/19 03:00 115/61 08/30/19 03:00 115/61 08/30/19 02:45 96 30 121/82 (95) 100 08/30/19 02:30 100 30 126/55 (78) 100 08/30/19 02:15 96 30 125/47 (73) 100 08/30/19 02:00 96 30 145/41 (75) 100 08/30/19 02:00 125/47 08/30/19 02:00 125/47 08/30/19 01:45 96 30 136/55 (82) 96 08/30/19 01:30 97 31 128/47 (74) 100 08/30/19 01:15 97 30 123/52 (75) 100 08/30/19 01:00 96 33 137/65 (89) 100 08/30/19 01:00 123/52 08/30/19 01:00 123/52 08/30/19 00:45 95 30 133/48 (76) 100 08/30/19 00:30 94 34 130/77 (94) 88 08/30/19 00:15 95 31 132/49 (76) 100 08/30/19 00:00 100 08/30/19 00:00 92 08/30/19 00:00 132/49 08/30/19 00:00 132/49 08/30/19 00:00 100 08/30/19 00:00 Mechanical Ventilator 08/30/19 00:00 98.5 96 30 121/58 (79) 100 08/29/19 23:45 98 31 116/44 (68) 100 08/29/19 23:30 96 31 120/48 (72) 100 08/29/19 23:15 98 32 131/60 (83) 100 08/29/19 23:13 94 32 100 08/29/19 23:08 122/80 08/29/19 23:00 97 31 127/78 (94) 100 08/29/19 23:00 131/60 08/29/19 23:00 131/60 08/29/19 22:45 95 31 127/54 (78) 100 08/29/19 22:30 94 30 123/18 (53) 100 08/29/19 22:15 96 30 156/39 (78) 100 08/29/19 22:10 116/44 08/29/19 22:00 95 30 144/38 (73) 100 08/29/19 21:45 94 29 135/33 (67) 100 08/29/19 21:30 94 27 149/36 (73) 100 08/29/19 21:15 98 26 149/33 (71) 48 08/29/19 21:00 100 23 139/31 (67) 08/29/19 21:00 120/56 08/29/19 21:00 120/56 08/29/19 20:56 82/32 08/29/19 20:55 82/36 08/29/19 20:55 92 82/32 08/29/19 20:45 96 14 123/21 (55) 08/29/19 20:30 94 17 70/19 (36) 08/29/19 20:15 97 18 88/37 (54) 08/29/19 20:11 98 30 100 08/29/19 20:00 93 08/29/19 20:00 97.8 100 19 90/56 (67) 08/29/19 20:00 120/34 08/29/19 20:00 Mechanical Ventilator 08/29/19 19:45 110 29 136/32 (66) 08/29/19 19:35 83 15 64/23 (37) 77 08/29/19 19:30 91 25 69/24 (39) 08/29/19 19:15 88 15 82/46 (58) 94 08/29/19 19:00 100 08/29/19 19:00 82 14 81/21 (41) 91 08/29/19 19:00 81/21 08/29/19 18:45 99 14 107/26 (53) 63 08/29/19 18:38 119 17 196/33 (87) 08/29/19 18:35 125 19 187/44 (91) 08/29/19 18:31 81 29 151/93 (112) 08/29/19 18:30 128 28 111/18 (49) 84 08/29/19 18:25 46 14 44/17 (26) 08/29/19 18:23 54 16 48/36 (40) 08/29/19 18:15 70 17 109/32 (57) 08/29/19 18:02 85 23 116/34 (61) 98 08/29/19 18:00 110/32 08/29/19 18:00 40 08/29/19 17:45 83 13 110/32 (58) 96 08/29/19 17:30 83 25 124/32 (62) 95 08/29/19 17:25 114/46 08/29/19 17:02 85 27 110/42 (64) 93 08/29/19 17:00 110/42 I&O Intake and Output 08/29/19 08/30/19 19:00 07:00 Intake Total 1741.895 ml 1878.468 ml Output Total 1015 ml 125 ml Balance 726.895 ml 1753.468 ml IV Total 1541.895 ml 978.468 ml Tube Feeding 0 ml 0 ml Blood Product 900 ml Other 200 ml Output Urine Total 15 ml 5 ml Stool Total 0 ml 20 ml Gastric Drainage Total 1000 ml 100 ml # Voids 10 Dressing: other Wound: other Drains: other Cardiovascular: RSR Respiratory: decreased breath sounds Abdomen: soft, non-tender, present bowel sounds Extremities: no cyanosis Laboratory Tests Test 08/29/19 18:33 08/29/19 19:35 08/30/19 08:10 08/30/19 14:20 POC Whole Blood Glucose 100 MG/DL (74-106) White Blood Count 25.2 K/UL (4.8-10.8) #*H 17.4 K/UL (4.8-10.8) H Red Blood Count 2.20 M/UL (4.70-6.10) L 3.63 M/UL (4.70-6.10) L Hemoglobin 7.0 G/DL (14.2-18.0) L 11.4 G/DL (14.2-18.0) #L Hematocrit 23.3 % (42.0-52.0) L 36.5 % (42.0-52.0) #L Mean Corpuscular Volume 106 FL (80-99) H 101 FL (80-99) H Mean Corpuscular Hemoglobin 32.0 PG (27.0-31.0) H 31.4 PG (27.0-31.0) H Mean Corpuscular Hemoglobin Concent 30.2 G/DL (32.0-36.0) L 31.2 G/DL (32.0-36.0) L Red Cell Distribution Width 17.5 % (11.6-14.8) H 16.2 % (11.6-14.8) H Platelet Count 280 K/UL (150-450) 169 K/UL (150-450) Mean Platelet Volume 10.3 FL (6.5-10.1) H 8.8 FL (6.5-10.1) Neutrophils (%) (Auto) % (45.0-75.0) % (45.0-75.0) Lymphocytes (%) (Auto) % (20.0-45.0) % (20.0-45.0) Monocytes (%) (Auto) % (1.0-10.0) % (1.0-10.0) Eosinophils (%) (Auto) % (0.0-3.0) % (0.0-3.0) Basophils (%) (Auto) % (0.0-2.0) % (0.0-2.0) Differential Total Cells Counted 100 100 Neutrophils % (Manual) 46 % (45-75) 76 % (45-75) H Lymphocytes % (Manual) 17 % (20-45) L 5 % (20-45) L Monocytes % (Manual) 3 % (1-10) 2 % (1-10) Eosinophils % (Manual) 0 % (0-3) 0 % (0-3) Basophils % (Manual) 0 % (0-2) 0 % (0-2) Metamyelocytes % 6 % (0-0) H Myelocytes % 1 % (0-0) H Band Neutrophils 27 % (0-8) H 17 % (0-8) H Nucleated Red Blood Cells 2 /100 WBC Platelet Estimate Adequate Adequate Platelet Morphology Normal Normal Polychromasia 1+ Hypochromasia 1+ Anisocytosis 2+ 1+ Macrocytosis 2+ 1+ Sodium Level 146 MMOL/L (136-145) H 142 MMOL/L (136-145) Potassium Level 5.3 MMOL/L (3.5-5.1) H 4.9 MMOL/L (3.5-5.1) Chloride Level 112 MMOL/L (98-107) H 110 MMOL/L (98-107) H Carbon Dioxide Level 17 MMOL/L (21-32) L 20 MMOL/L (21-32) L Anion Gap 17 mmol/L (5-15) H 13 mmol/L (5-15) Blood Urea Nitrogen 51 mg/dL (7-18) H 58 mg/dL (7-18) H Creatinine 3.8 MG/DL (0.55-1.30) H 4.0 MG/DL (0.55-1.30) H Estimat Glomerular Filtration Rate 18.9 mL/min (>60) 17.9 mL/min (>60) Glucose Level 94 MG/DL (74-106) 111 MG/DL (74-106) H Calcium Level 6.9 MG/DL (8.5-10.1) L 6.3 MG/DL (8.5-10.1) L Total Bilirubin 0.7 MG/DL (0.2-1.0) 1.2 MG/DL (0.2-1.0) H Aspartate Amino Transf (AST/SGOT) 275 U/L (15-37) H 468 U/L (15-37) H Alanine Aminotransferase (ALT/SGPT) 149 U/L (12-78) H 267 U/L (12-78) H Alkaline Phosphatase 79 U/L (46-116) 92 U/L (46-116) Troponin I 7.518 ng/mL (0.000-0.056) 18.244 ng/mL (0.000-0.056) 19.587 ng/mL (0.000-0.056) Total Protein 5.4 G/DL (6.4-8.2) L 5.2 G/DL (6.4-8.2) L Albumin 1.1 G/DL (3.4-5.0) L 1.3 G/DL (3.4-5.0) L Globulin 4.3 g/dL 3.9 g/dL Albumin/Globulin Ratio 0.3 (1.0-2.7) L 0.3 (1.0-2.7) L Lactic Acid Level 3.20 mmol/L (0.4-2.0) H 3.30 mmol/L (0.4-2.0) H Direct Bilirubin 1.0 MG/DL (0.0-0.3) H Plan Problems: (1) Anemia Assessment & Plan: 08/22 acute brisk pulsatile active bleeding from the G-tube site. Significant for blood identified on the dressings and in the patient's bed therefore immediate hemostasis indicated and recommended. At the bedside patient was given pain medication morphine IV and the G-tube site incision was extended and postop bleeding identified from around the level of the deep subcutaneous tissue. 2 [id number] silk sutures were placed and hemostasis was obtained. The skin incision was reapproximated using 0 silk interrupted sutures. Patient taught procedure well. Hemostasis noted. Labs ordered will monitor renal improved a fib rvr in ICU for monitoring (2) Unstageable decubitus ulcer Assessment & Plan: Pt presented on admission with multiple Pressure Injuries. Pt has a Tracheostomy and no areas of skin concerns noted under tracheal collar. Unstageable Sacral Pressure Injury(L)9.5cm x (W)10cm. Base of wound is 75% mixed slough and eschar,25% carolynn, Edges adherent with surrounding purple and maroon indurated borders. No odor or exudate noted. DTPI L Heel (L)3.7cm x (W)4.5cm. Base of wound is maroon and indurated with surrounding non-Blanching erythema. Callused skin periwound. Reabsorbing DTPI Pearl L Foot (L)3.3cm x (W)2.5cm. Base of Pressure Injury is maroon but dry. No erythema or fluctuance periwound. DTPI Lateral L 1st metatarsal(L)1.5cm x (W)2cm. Base of wound is maroon and indurated.Callused skin periwound. DTPI Lateral R Heel (L)4.4cm x (W)6cm. Base of wound is indurated ,purple with surrounding maroon and fluctuant borders.Callusing periwound. DTPI R Hallux (L)1.8cm x (W)1.9cm. Base of wound is indurated and purple. Callusing periwound. DTPI Lateral R 1st metatarsal(L)2cm x (W)2.7cm. Base of wound is indurated and maroon. Callusing periwound. Tx.Plan: Cleanse Sacral wound with Saline. Apply TheraHoney. Apply Moisture Barrier Paste periwound. Cover with Optifoam drsg. Change every 3 days and prn. Apply Cavilon Skin Barrier to wounds L L Heel , L st metatarsal,Dorsal L Foot. Cover each Site with Optifoam drsg. Change every 7 days and prn. Apply Cavilon Skin Barrier to R Heel, R Hallux, R 1st metatarsal. Cover each site with Optifoam drsg. Change every 7 days and prn. APM/KHOA Mattress. Reposition at least every 2hours or as tolerated. Off-Load Heels with Pillows. (3) Leaking PEG tube Assessment & Plan: prior peg removed plan new placement soon will monitor site drainage noted packing placed Minimal drainage from prior G-tube site discussed with nursing about packing and dressings will continue current care plan plan for PEG tube once improved s/p peg 08/21 tf worsening hold tf g tube to suction LIS abd distention likely ileus possible asp pna cont abd cont support wean pressors Lung bases: Atelectasis at the lung bases. Liver: Unremarkable. No mass. Gallbladder and bile ducts: Unremarkable. No calcified stones. No ductal dilation. Pancreas: Unremarkable. No mass. No ductal dilation. Spleen: Unremarkable. No splenomegaly. Adrenals: Unremarkable. No mass. Kidneys and ureters: Nonobstructing stone in the lower pole of the right kidney. Stomach and bowel: Tract from a recent percutaneous gastrostomy tube which is healing in the subcutaneous fat. Surrounding inflammatory changes but no abscess. Severe colonic diverticulosis within the sigmoid colon with mural hypertrophy however no surrounding inflammatory changes to suggest acute diverticulitis. Underlying malignancy not excluded. No obstruction. Intraperitoneal space: Unremarkable. No free air. No significant fluid collection. Bones/joints: No acute fracture. No dislocation. Soft tissues: Fat stranding in the ventral abdomen. Vasculature: Unremarkable. No abdominal aortic aneurysm. Lymph nodes: Unremarkable. No enlarged lymph nodes. Tubes, lines and devices: Thakkar catheter within the bladder. IMPRESSION: 1. Severe colonic diverticulosis within the sigmoid colon with mural hypertrophy however no surrounding inflammatory changes to suggest acute diverticulitis. Underlying malignancy not excluded. 2. Tract from a recent percutaneous gastrostomy tube which is healing in the subcutaneous fat. Surrounding inflammatory changes but no abscess. (4) Person under investigation for COVID-19 Assessment & Plan: There is a tracheostomy. Calcified granuloma is seen in the right midlung. Granulomatous calcified nodes are seen in the left aortopulmonary window. No definite infiltrates, effusions, congestion. The heart size is upper limits normal. Impression: No definite acute abnormality Evidence of old granulomatous disease (5) Cardiopulmonary arrest Assessment & Plan: worsening family at bedside prognosis guarded Homero Cummings Aug 30, 2019 16:51
--- NOTE | 2019-08-30 16:54 | NUR ---
NURSE NOTES:WOUND CARE NOTES:Reabsorbing Sacral DTPI that is partially opened at sacrum and second opening at L sacrum. Base of wound is dry -brown without induration or fluctuance. Wound at sacrococcygeal area is full thickness with Beefy red granulation, surrounding pink epithelial borders (L)3.5cm x (W)5cm. Periwound is dark brown.Full thickness pressure L Sacrum is 95% pink- moist,5% slough centrally. No exudate noted. Edges are macerated. Surrounding dark brown borders without induration. Unstageable Pressure injury L heel. Base of wound is 100% necrotic (L)3.5cm x (W)3.5cm.periwound is fluctuant but blanchable. Reabsorbed DTPI Dorsal L foot. dry brown discoloration without induration /fluctuance noted. Reabsorbed DTPI Lateral L 1st metatarsal. Dry callused skin without erythema, induration or fluctuance. Thick callus without erythema L Hallux. Unstageable Pressure injury R Heel (L)3.5cm x (W)6.2cm. Base of wound is 100% necrotic -dry. Edges adherent to base of wound. Periwound is blanchable. Reabsorbed DTPI R Hallux. Dry callused skin without erythema noted. Thick callused skin without erythema noted to lateral R 1st metatarsal. Wound prevention protocols continued as care-planned . Pt positioned with pillows and repositioned as per tolerance and within protocols. Tx.Plan:Cleanse Sacral wounds with Saline.Apply Therahoney.Apply Moisture Barrier Paste periwound. Cover with Optifoam drsg every 3 days and prn. Apply Betadine to both heels. Cover with Optifoam drsgs. Change every 7 days and prn. APM/KHOA Mattress overlay. Reposition at least every 2hours or as tolerated. Off-load heels with pillow.
--- NOTE | 2019-08-30 17:00 | NUR ---
NURSE NOTES: Titrated down and held Levophed since BP is more stable 130/50 at 2 mcg/min. Will closely monitor patient.
--- NOTE | 2019-08-30 20:00 | NUR ---
NURSE NOTES: received from reanna rn pt trach -vent o2 sat 100 % [id number] hr 110-a-fib bp 72 /34 levo drip at 10 mcg/min dr garrison was notify
[2019-08-30] MEDS: Dyna-Hex 2% Top Sol 2oz TOPIC SCH (20:34)
--- NOTE | 2019-08-30 22:00 | NUR ---
NURSE NOTES: reposition and suction levo drip at 8mcg/min
--- NOTE | 2019-08-30 22:05 | General Progress Note ---
Assessment/Plan Assessment/Plan: Assessment - Arterial GT site bleeding - repaired - Anemia -acute and chronic - C difficile - Ileus / abd distention - improved with bowel rest - GT migration - removed - Abdominal wall induration and discharge, improved - anemia - OB (+) stools - due to ulcerative gastritis, no colonoscopy per DPOA - s/p Trach - Macrocytic indicies - normal B12 and folate - poor prognosis Recommendations - PPI - transfuse PRN - Restart TF - off abx per ID - follow exam and labs - supportive care Subjective Allergies: Coded Allergies: No Known Allergies (Unverified , 08/07/19) Subjective Above noted patient seen this am in ICU d/w RN abdomen less distended feeding orders given Objective Last 24 Hour Vital Signs Date Time Temp Pulse Resp B/P (MAP) Pulse Ox O2 Delivery O2 Flow Rate FiO2 08/30/19 21:30 94 27 102/40 (60) 99 08/30/19 21:15 92 27 87/43 (58) 96 08/30/19 21:00 92 29 88/42 (57) 96 08/30/19 20:45 92 26 82/35 (51) 96 08/30/19 20:35 91/34 08/30/19 20:34 93 91/34 08/30/19 20:30 93 27 86/32 (50) 96 08/30/19 20:15 96 27 91/39 (56) 97 08/30/19 20:00 98.6 95 25 85/41 (56) 96 08/30/19 19:15 119 34 100 08/30/19 19:00 103 30 114/27 (56) 98 08/30/19 18:05 101 31 113/38 (63) 98 08/30/19 18:00 98.6 102 33 113/38 (63) 98 08/30/19 17:45 102 32 108/56 (73) 98 08/30/19 17:30 102 29 112/59 (76) 98 08/30/19 17:15 100 25 126/46 (72) 98 08/30/19 17:00 99 29 130/50 (76) 98 08/30/19 17:00 130/50 08/30/19 16:30 100 29 131/58 (82) 99 08/30/19 16:00 99 24 106/54 (71) 99 08/30/19 16:00 97 08/30/19 16:00 121/50 08/30/19 16:00 100 08/30/19 16:00 Mechanical Ventilator 08/30/19 15:30 97 25 121/50 (73) 98 08/30/19 15:19 95 08/30/19 15:00 93 25 116/58 (77) 99 08/30/19 15:00 116/58 08/30/19 14:45 99 27 103/38 (59) 98 08/30/19 14:39 96 33 100 08/30/19 14:30 99 21 109/35 (59) 99 08/30/19 14:15 94 27 124/56 (78) 94 08/30/19 14:00 117/52 08/30/19 14:00 95 22 117/52 (73) 99 08/30/19 13:30 94 20 117/52 (73) 100 08/30/19 13:00 96 23 111/53 (72) 100 08/30/19 13:00 111/53 08/30/19 12:30 93 24 118/47 (70) 99 08/30/19 12:00 98.8 93 25 121/45 (70) 99 08/30/19 12:00 121/45 08/30/19 12:00 90 08/30/19 12:00 100 08/30/19 12:00 Mechanical Ventilator 08/30/19 11:30 96 23 133/53 (79) 99 08/30/19 11:15 94 23 126/54 (78) 98 08/30/19 11:13 101 29 100 08/30/19 11:00 128/57 08/30/19 11:00 91 23 128/57 (80) 100 08/30/19 10:45 93 26 115/44 (67) 99 08/30/19 10:30 91 26 129/46 (73) 100 08/30/19 10:30 129/46 08/30/19 10:30 129/46 08/30/19 10:00 131/81 08/30/19 10:00 131/18 08/30/19 10:00 90 28 131/18 (55) 99 08/30/19 09:30 91 28 135/44 (74) 98 08/30/19 09:00 91 27 122/30 (60) 98 08/30/19 09:00 122/30 08/30/19 09:00 122/30 08/30/19 08:30 91 28 134/47 (76) 98 08/30/19 08:00 100 08/30/19 08:00 126/40 08/30/19 08:00 126/40 08/30/19 08:00 Mechanical Ventilator 08/30/19 08:00 98.2 92 28 126/40 (68) 100 08/30/19 07:40 91 08/30/19 07:33 129/50 08/30/19 07:30 92 28 133/101 (112) 100 08/30/19 07:16 93 29 100 08/30/19 07:00 122/21 08/30/19 07:00 122/21 08/30/19 07:00 91 30 122/21 (54) 100 08/30/19 06:34 92 30 134/54 (80) 100 08/30/19 06:15 92 30 118/52 (74) 100 08/30/19 06:01 118/52 08/30/19 06:01 118/52 08/30/19 06:00 93 31 101/38 (59) 100 08/30/19 05:45 93 30 114/64 (81) 100 08/30/19 05:30 94 28 100/26 (50) 100 08/30/19 05:15 92 29 134/100 (111) 100 08/30/19 05:00 92 29 128/100 (109) 71 08/30/19 05:00 134/100 08/30/19 05:00 134/100 08/30/19 04:45 96 33 118/34 (62) 100 08/30/19 04:30 93 31 121/46 (71) 100 08/30/19 04:15 93 31 145/28 (67) 100 08/30/19 04:00 98.5 93 31 105/48 (67) 100 08/30/19 04:00 94 30 100 08/30/19 04:00 90 08/30/19 04:00 100 08/30/19 04:00 Mechanical Ventilator 08/30/19 04:00 145/28 08/30/19 04:00 145/28 08/30/19 03:45 94 31 129/100 (110) 100 08/30/19 03:30 94 31 110/20 (50) 100 08/30/19 03:15 97 31 115/61 (79) 100 08/30/19 03:00 98.4 95 31 118/52 (74) 100 08/30/19 03:00 115/61 08/30/19 03:00 115/61 08/30/19 02:45 96 30 121/82 (95) 100 08/30/19 02:30 100 30 126/55 (78) 100 08/30/19 02:15 96 30 125/47 (73) 100 08/30/19 02:00 96 30 145/41 (75) 100 08/30/19 02:00 125/47 08/30/19 02:00 125/47 08/30/19 01:45 96 30 136/55 (82) 96 08/30/19 01:30 97 31 128/47 (74) 100 08/30/19 01:15 97 30 123/52 (75) 100 08/30/19 01:00 96 33 137/65 (89) 100 08/30/19 01:00 123/52 08/30/19 01:00 123/52 08/30/19 00:45 95 30 133/48 (76) 100 08/30/19 00:30 94 34 130/77 (94) 88 08/30/19 00:15 95 31 132/49 (76) 100 08/30/19 00:00 100 08/30/19 00:00 92 08/30/19 00:00 132/49 08/30/19 00:00 132/49 08/30/19 00:00 100 08/30/19 00:00 Mechanical Ventilator 08/30/19 00:00 98.5 96 30 121/58 (79) 100 08/29/19 23:45 98 31 116/44 (68) 100 08/29/19 23:30 96 31 120/48 (72) 100 08/29/19 23:15 98 32 131/60 (83) 100 08/29/19 23:13 94 32 100 08/29/19 23:08 122/80 08/29/19 23:00 97 31 127/78 (94) 100 08/29/19 23:00 131/60 08/29/19 23:00 131/60 08/29/19 22:45 95 31 127/54 (78) 100 08/29/19 22:30 94 30 123/18 (53) 100 08/29/19 22:15 96 30 156/39 (78) 100 08/29/19 22:10 116/44 Intake and Output 08/29/19 08/30/19 19:00 07:00 Intake Total 1741.895 ml 1878.468 ml Output Total 1015 ml 125 ml Balance 726.895 ml 1753.468 ml IV Total 1541.895 ml 978.468 ml Tube Feeding 0 ml 0 ml Blood Product 900 ml Other 200 ml Output Urine Total 15 ml 5 ml Stool Total 0 ml 20 ml Gastric Drainage Total 1000 ml 100 ml # Voids 10 Laboratory Tests 08/30/19 08:10: White Blood Count 17.4H, Red Blood Count 3.63L, Hemoglobin 11.4#L, Hematocrit 36.5#L, Mean Corpuscular Volume 101H, Mean Corpuscular Hemoglobin 31.4H, Mean Corpuscular Hemoglobin Concent 31.2L, Red Cell Distribution Width 16.2H, Platelet Count 169, Mean Platelet Volume 8.8, Neutrophils (%) (Auto) , Lymphocytes (%) (Auto) , Monocytes (%) (Auto) , Eosinophils (%) (Auto) , Basophils (%) (Auto) , Differential Total Cells Counted 100, Neutrophils % ( Manual) 76H, Lymphocytes % (Manual) 5L, Monocytes % (Manual) 2, Eosinophils % ( Manual) 0, Basophils % (Manual) 0, Band Neutrophils 17H, Platelet Estimate Adequate, Platelet Morphology Normal, Anisocytosis 1+, Macrocytosis 1+, Sodium Level 142, Potassium Level 4.9, Chloride Level 110H, Carbon Dioxide Level 20L, Anion Gap 13, Blood Urea Nitrogen 58H, Creatinine 4.0H, Estimat Glomerular Filtration Rate 17.9, Glucose Level 111H, Lactic Acid Level 3.20H, Calcium Level 6.3L, Total Bilirubin 1.2H, Direct Bilirubin 1.0H, Aspartate Amino Transf (AST/SGOT) 468H, Alanine Aminotransferase (ALT/SGPT) 267H, Alkaline Phosphatase 92, Troponin I 18.244H, Total Protein 5.2L, Albumin 1.3L, Globulin 3.9, Albumin/ Globulin Ratio 0.3L 08/30/19 14:20: Lactic Acid Level 3.30H, Troponin I 19.587H 08/30/19 21:00: Lactic Acid Level 2.80H Height (Feet): 5 Height (Inches): 10.00 Weight (Pounds): 250 Objective Obese AA Man NCAT (+) Trach coarse BS RR Abd Healing prior GT site, some erythema around new GT site less distended abdomen trace edema non interactive Rubia Hawk MD Aug 30, 2019 22:05
[2019-08-31] VITALS (68 sets, daily range): BP systolic 69–139; BP diastolic 23–83
--- NOTE | 2019-08-31 | NUR ---
NURSE NOTES: levo drip at 6mcg/min with bp>100
--- NOTE | 2019-08-31 02:00 | NUR ---
NURSE NOTES: COMPLETE BED BATH DONE CENTRAL LINE DRESSING CHANGE
--- NOTE | 2019-08-31 04:00 | NUR ---
NURSE NOTES: 12 lead EKG was done and showed Afib 126/min, mds aware. Neuro unchanged.
[2019-08-31 04:40] LABS: HEMATOCRIT 35.7 % (42.0-52.0); HEMOGLOBIN 11.3 G/DL (14.2-18.0); MEAN CORPUSCULAR VOLUME 100 FL (80-99); PLATELET COUNT 140 K/UL (150-450); RED BLOOD COUNT 3.59 M/UL (4.70-6.10); WHITE BLOOD COUNT 16.1 K/UL (4.8-10.8)
[2019-08-31 05:09] LABS: APPEARANCE,URINE CLOUDY; BILIRUBIN, URINE 2+ (NEGATIVE); GLUCOSE, URINE (UA) NEGATIVE (NEGATIVE); KETONES,URINE 1+ (NEGATIVE); NITRITE,URINE POSITIVE (NEGATIVE); PH,URINE 5 (4.5-8.0); PROTEIN,URINE 3+ (NEGATIVE); UROBILINOGEN,URINE 4 MG/DL (0.0-1.0)
[2019-08-31 05:25] LABS: ANION GAP 18 mmol/L (5-15); BLOOD UREA NITROGEN 65 mg/dL (7-18); CALCIUM 6.8 MG/DL (8.5-10.1); CARBON DIOXIDE 17 MMOL/L (21-32); CHLORIDE 105 MMOL/L (98-107); CREATININE 4.7 MG/DL (0.55-1.30); POTASSIUM 4.4 MMOL/L (3.5-5.1); SODIUM 140 MMOL/L (136-145)
[2019-08-31 05:32] LABS: COLOR,URINE AMBER; LEUKOCYTE ESTERASE ,URINE 2+ (NEGATIVE)
--- NOTE | 2019-08-31 06:00 | NUR ---
NURSE NOTES: dr garrison was notify notify hr 130-150 ekg tracing done and bp 65/34 levo drip [id number]/min
--- NOTE | 2019-08-31 07:04 | NUR ---
HAND-OFF: Report given to kathy schneider using sbar .
--- NOTE | 2019-08-31 07:05 | NUR ---
NURSE NOTES: Report received from [facility]. Pt is obtunded in bed. Opens eyes spontaneously. Eyes do not follow. Do not follow verbal and tactile. Non-verbal. A-fib with RVR on campus monitor with HR of 130-150's. Trach to vent. P 8. AC 14,Tv 450, FiO2 100%, P 5. O2 sat 100%. RR 30's. Abdominal muscle use, tachypneic and irregular breathing noted. GT is in place. Feeding is held for now because of breathing. Thakkar in place draining marifer colored urine to gravity. Rectal tube in place draining to loose brown BM. LATOYA PICC line patent and asymptomatic. Levo at 10mcg/min and D51/2NS are running at 50cc/hr. Bed in lowest position. Side rails up x3. Will resume plan of care. Addendum: 08/31/19 at 0809 by JORGE BACK RN RN NURSE NOTES: Report received from [facility]. Pt is obtunded in bed. Opens eyes spontaneously. Eyes do not follow. Do not follow verbal and tactile. Non-verbal. A-fib with RVR on campus monitor with HR of 130-150's. Left a message to Dr Fisher as per overnight babysitter. Awaiting call back for new orders. Trach to vent. P 8. AC 14,Tv 450, FiO2 100%, P 5. O2 sat 100%. RR 30's. Abdominal muscle use, tachypneic and irregular breathing noted. GT is in place. Held tube feeding for now due to irregular and tachypneic breathing. Thakkar in place draining marifer colored urine to gravity. Rectal tube in place draining to loose brown BM. LATOYA PICC line patent and asymptomatic. Levo at 10mcg/min and D51/2NS are running at 50cc/hr. Bed in lowest position. Side rails up x3. Will resume plan of care.
--- NOTE | 2019-08-31 07:34 | Surgery Progress Note ---
Surgery Progress Note Subjective Additional Comments declining after acls yesterday. family still requesting full code on levophed arrhythmia wbc 15k kub noted Objective Last 24 Hour Vital Signs Date Time Temp Pulse Resp B/P (MAP) Pulse Ox O2 Delivery O2 Flow Rate FiO2 08/31/19 07:00 146 30 100 08/31/19 07:00 144 30 97/69 (78) 100 08/31/19 06:45 140 28 100/43 (62) 100 08/31/19 06:30 138 30 85/40 (55) 100 08/31/19 06:15 139 28 73/45 (54) 100 08/31/19 06:00 135 28 69/40 (50) 100 08/31/19 06:00 64/26 08/31/19 05:45 137 45 90/50 (63) 100 08/31/19 05:30 137 33 96/48 (64) 100 08/31/19 05:15 137 38 104/39 (60) 100 08/31/19 05:00 139 39 89/49 (62) 100 08/31/19 05:00 104/39 08/31/19 04:45 137 30 97/70 (79) 100 08/31/19 04:30 137 33 101/53 (69) 100 08/31/19 04:15 137 34 101/71 (81) 100 08/31/19 04:00 Mechanical Ventilator 100.0 08/31/19 04:00 135 43 119/71 (87) 100 08/31/19 04:00 140 08/31/19 04:00 100 08/31/19 04:00 101/71 08/31/19 03:45 134 25 90/50 (63) 100 08/31/19 03:30 134 24 110/36 (60) 100 08/31/19 03:19 137 35 100 08/31/19 03:15 133 29 139/37 (71) 100 08/31/19 03:00 132 24 131/81 (98) 100 08/31/19 03:00 130/37 08/31/19 02:45 132 30 126/78 (94) 08/31/19 02:30 111 33 106/83 (91) 83 08/31/19 02:15 101 27 101/45 (63) 98 08/31/19 02:00 102 27 91/36 (54) 97 08/31/19 02:00 101/45 08/31/19 01:45 100 30 106/49 (68) 98 08/31/19 01:30 101 28 98/46 (63) 98 08/31/19 01:15 105 32 101/50 (67) 98 08/31/19 01:00 102 23 105/53 (70) 98 08/31/19 01:00 101/50 08/31/19 00:45 101 28 98/43 (61) 98 08/31/19 00:30 113 25 99/38 (58) 98 08/31/19 00:15 106 24 105/51 (69) 98 08/31/19 00:00 106 08/31/19 00:00 98.5 101 31 109/50 (69) 99 08/31/19 00:00 Mechanical Ventilator 100.0 08/31/19 00:00 100 08/31/19 00:00 98/54 08/30/19 23:45 99 26 110/40 (63) 99 08/30/19 23:30 99 25 132/54 (80) 99 08/30/19 23:15 100 24 128/55 (79) 99 08/30/19 23:00 128/55 08/30/19 23:00 101 23 108/46 (66) 99 08/30/19 22:57 125 32 100 08/30/19 22:45 102 27 126/36 (66) 99 08/30/19 22:30 109 24 111/70 (84) 99 08/30/19 22:15 101 27 137/58 (84) 99 08/30/19 22:00 121/57 08/30/19 22:00 112 24 121/57 (78) 98 08/30/19 21:45 117 47 125/46 (72) 98 08/30/19 21:30 94 27 102/40 (60) 99 08/30/19 21:15 92 27 87/43 (58) 96 08/30/19 21:00 92 29 88/42 (57) 96 08/30/19 21:00 75/41 08/30/19 20:45 92 26 82/35 (51) 96 08/30/19 20:35 91/34 08/30/19 20:34 93 91/34 08/30/19 20:30 93 27 86/32 (50) 96 08/30/19 20:15 96 27 91/39 (56) 97 08/30/19 20:00 103 08/30/19 20:00 85/41 08/30/19 20:00 Mechanical Ventilator 100.0 08/30/19 20:00 100 08/30/19 20:00 98.6 95 25 85/41 (56) 96 08/30/19 19:15 119 34 100 08/30/19 19:00 103 30 114/27 (56) 98 08/30/19 18:05 101 31 113/38 (63) 98 08/30/19 18:00 98.6 102 33 113/38 (63) 98 08/30/19 17:45 102 32 108/56 (73) 98 08/30/19 17:30 102 29 112/59 (76) 98 08/30/19 17:15 100 25 126/46 (72) 98 08/30/19 17:00 99 29 130/50 (76) 98 08/30/19 17:00 130/50 08/30/19 16:30 100 29 131/58 (82) 99 08/30/19 16:00 99 24 106/54 (71) 99 08/30/19 16:00 97 08/30/19 16:00 121/50 08/30/19 16:00 100 08/30/19 16:00 Mechanical Ventilator 08/30/19 15:30 97 25 121/50 (73) 98 08/30/19 15:19 95 08/30/19 15:00 93 25 116/58 (77) 99 08/30/19 15:00 116/58 08/30/19 14:45 99 27 103/38 (59) 98 08/30/19 14:39 96 33 100 08/30/19 14:30 99 21 109/35 (59) 99 08/30/19 14:15 94 27 124/56 (78) 94 08/30/19 14:00 117/52 08/30/19 14:00 95 22 117/52 (73) 99 08/30/19 13:30 94 20 117/52 (73) 100 08/30/19 13:00 96 23 111/53 (72) 100 08/30/19 13:00 111/53 08/30/19 12:30 93 24 118/47 (70) 99 08/30/19 12:00 98.8 93 25 121/45 (70) 99 08/30/19 12:00 121/45 08/30/19 12:00 90 08/30/19 12:00 100 08/30/19 12:00 Mechanical Ventilator 08/30/19 11:30 96 23 133/53 (79) 99 08/30/19 11:15 94 23 126/54 (78) 98 08/30/19 11:13 101 29 100 08/30/19 11:00 128/57 08/30/19 11:00 91 23 128/57 (80) 100 08/30/19 10:45 93 26 115/44 (67) 99 08/30/19 10:30 91 26 129/46 (73) 100 08/30/19 10:30 129/46 08/30/19 10:30 129/46 08/30/19 10:00 131/81 08/30/19 10:00 131/18 08/30/19 10:00 90 28 131/18 (55) 99 08/30/19 09:30 91 28 135/44 (74) 98 08/30/19 09:00 91 27 122/30 (60) 98 08/30/19 09:00 122/30 08/30/19 09:00 122/30 08/30/19 08:30 91 28 134/47 (76) 98 08/30/19 08:00 100 08/30/19 08:00 126/40 08/30/19 08:00 126/40 08/30/19 08:00 Mechanical Ventilator 08/30/19 08:00 98.2 92 28 126/40 (68) 100 08/30/19 07:40 91 I&O Intake and Output 08/30/19 08/31/19 19:00 07:00 Intake Total 1364.032 ml 1196.25 ml Output Total 115 ml 55 ml Balance 1249.032 ml 1141.25 ml IV Total 1314.032 ml 1196.25 ml Other 50 ml Output Urine Total 45 ml 55 ml Stool Total 70 ml # Bowel Movements 1 50 Dressing: other Wound: other Drains: other Cardiovascular: RSR Respiratory: decreased breath sounds Abdomen: soft, distended, non-tender, present bowel sounds Extremities: no tenderness, no cyanosis Laboratory Tests Test 08/30/19 08:10 08/30/19 14:20 08/30/19 21:00 08/31/19 04:00 White Blood Count 17.4 K/UL (4.8-10.8) H Red Blood Count 3.63 M/UL (4.70-6.10) L Hemoglobin 11.4 G/DL (14.2-18.0) #L Hematocrit 36.5 % (42.0-52.0) #L Mean Corpuscular Volume 101 FL (80-99) H Mean Corpuscular Hemoglobin 31.4 PG (27.0-31.0) H Mean Corpuscular Hemoglobin Concent 31.2 G/DL (32.0-36.0) L Red Cell Distribution Width 16.2 % (11.6-14.8) H Platelet Count 169 K/UL (150-450) Mean Platelet Volume 8.8 FL (6.5-10.1) Neutrophils (%) (Auto) % (45.0-75.0) Lymphocytes (%) (Auto) % (20.0-45.0) Monocytes (%) (Auto) % (1.0-10.0) Eosinophils (%) (Auto) % (0.0-3.0) Basophils (%) (Auto) % (0.0-2.0) Differential Total Cells Counted 100 Neutrophils % (Manual) 76 % (45-75) H Lymphocytes % (Manual) 5 % (20-45) L Monocytes % (Manual) 2 % (1-10) Eosinophils % (Manual) 0 % (0-3) Basophils % (Manual) 0 % (0-2) Band Neutrophils 17 % (0-8) H Platelet Estimate Adequate Platelet Morphology Normal Anisocytosis 1+ Macrocytosis 1+ Sodium Level 142 MMOL/L (136-145) Potassium Level 4.9 MMOL/L (3.5-5.1) Chloride Level 110 MMOL/L (98-107) H Carbon Dioxide Level 20 MMOL/L (21-32) L Anion Gap 13 mmol/L (5-15) Blood Urea Nitrogen 58 mg/dL (7-18) H Creatinine 4.0 MG/DL (0.55-1.30) H Estimat Glomerular Filtration Rate 17.9 mL/min (>60) Glucose Level 111 MG/DL (74-106) H Lactic Acid Level 3.20 mmol/L (0.4-2.0) H 3.30 mmol/L (0.4-2.0) H 2.80 mmol/L (0.4-2.0) H Calcium Level 6.3 MG/DL (8.5-10.1) L Total Bilirubin 1.2 MG/DL (0.2-1.0) H Direct Bilirubin 1.0 MG/DL (0.0-0.3) H Aspartate Amino Transf (AST/SGOT) 468 U/L (15-37) H Alanine Aminotransferase (ALT/SGPT) 267 U/L (12-78) H Alkaline Phosphatase 92 U/L (46-116) Troponin I 18.244 ng/mL (0.000-0.056) 19.587 ng/mL (0.000-0.056) Total Protein 5.2 G/DL (6.4-8.2) L Albumin 1.3 G/DL (3.4-5.0) L Globulin 3.9 g/dL Albumin/Globulin Ratio 0.3 (1.0-2.7) L Urine Color Alissa Urine Appearance Cloudy Urine pH 5 (4.5-8.0) Urine Specific [place] 1.025 (1.005-1.035) Urine Protein 3+ (NEGATIVE) H Urine Glucose (UA) Negative (NEGATIVE) Urine Ketones 1+ (NEGATIVE) H Urine Blood 3+ (NEGATIVE) H Urine Nitrite Positive (NEGATIVE) H Urine Bilirubin 2+ (NEGATIVE) H Urine Ictotest Positive (NEGATIVE) Urine Urobilinogen 4 MG/DL (0.0-1.0) H Urine Leukocyte Esterase 2+ (NEGATIVE) H Urine RBC 10-15 /HPF (0 - 0) H Urine WBC 10-15 /HPF (0 - 0) H Urine Squamous Epithelial Cells None /LPF (NONE/OCC) Urine Bacteria Many /HPF (NONE) H Urine Yeast Many /HPF (NONE) H Test 08/31/19 04:02 White Blood Count 16.1 K/UL (4.8-10.8) H Red Blood Count 3.59 M/UL (4.70-6.10) L Hemoglobin 11.3 G/DL (14.2-18.0) L Hematocrit 35.7 % (42.0-52.0) L Mean Corpuscular Volume 100 FL (80-99) H Mean Corpuscular Hemoglobin 31.4 PG (27.0-31.0) H Mean Corpuscular Hemoglobin Concent 31.5 G/DL (32.0-36.0) L Red Cell Distribution Width 16.0 % (11.6-14.8) H Platelet Count 140 K/UL (150-450) L Mean Platelet Volume 9.0 FL (6.5-10.1) Neutrophils (%) (Auto) % (45.0-75.0) Lymphocytes (%) (Auto) % (20.0-45.0) Monocytes (%) (Auto) % (1.0-10.0) Eosinophils (%) (Auto) % (0.0-3.0) Basophils (%) (Auto) % (0.0-2.0) Neutrophils % (Manual) Pending Lymphocytes % (Manual) Pending Platelet Estimate Pending Platelet Morphology Pending Sodium Level 140 MMOL/L (136-145) Potassium Level 4.4 MMOL/L (3.5-5.1) Chloride Level 105 MMOL/L (98-107) Carbon Dioxide Level 17 MMOL/L (21-32) L Anion Gap 18 mmol/L (5-15) H Blood Urea Nitrogen 65 mg/dL (7-18) H Creatinine 4.7 MG/DL (0.55-1.30) H Estimat Glomerular Filtration Rate 14.8 mL/min (>60) Glucose Level 98 MG/DL (74-106) Lactic Acid Level 3.00 mmol/L (0.4-2.0) H Calcium Level 6.8 MG/DL (8.5-10.1) L Troponin I 15.457 ng/mL (0.000-0.056) Plan Problems: (1) Anemia Assessment & Plan: 08/22 acute brisk pulsatile active bleeding from the G-tube site. Significant for blood identified on the dressings and in the patient's bed therefore immediate hemostasis indicated and recommended. At the bedside patient was given pain medication morphine IV and the G-tube site incision was extended and postop bleeding identified from around the level of the deep subcutaneous tissue. 2 [id number] 0 silk sutures were placed and hemostasis was obtained. The skin incision was reapproximated using 0 silk interrupted sutures. Patient taught procedure well. Hemostasis noted. Labs ordered will monitor renal improved a fib rvr in ICU for monitoring (2) Unstageable decubitus ulcer Assessment & Plan: Pt presented on admission with multiple Pressure Injuries. Pt has a Tracheostomy and no areas of skin concerns noted under tracheal collar. Unstageable Sacral Pressure Injury(L)9.5cm x (W)10cm. Base of wound is 75% mixed slough and eschar,25% carolynn, Edges adherent with surrounding purple and maroon indurated borders. No odor or exudate noted. DTPI L Heel (L)3.7cm x (W)4.5cm. Base of wound is maroon and indurated with surrounding non-Blanching erythema. Callused skin periwound. Reabsorbing DTPI [place] L Foot (L)3.3cm x (W)2.5cm. Base of Pressure Injury is maroon but dry. No erythema or fluctuance periwound. DTPI Lateral L 1st metatarsal(L)1.5cm x (W)2cm. Base of wound is maroon and indurated.Callused skin periwound. DTPI Lateral R Heel (L)4.4cm x (W)6cm. Base of wound is indurated ,purple with surrounding maroon and fluctuant borders.Callusing periwound. DTPI R Hallux (L)1.8cm x (W)1.9cm. Base of wound is indurated and purple. Callusing periwound. DTPI Lateral R 1st metatarsal(L)2cm x (W)2.7cm. Base of wound is indurated and maroon. Callusing periwound. Reabsorbing Sacral DTPI that is partially opened at sacrum and second opening at L sacrum. Base of wound is dry -brown without induration or fluctuance. Wound at sacrococcygeal area is full thickness with Beefy red granulation, surrounding pink epithelial borders (L)3.5cm x (W)5cm. Periwound is dark brown.Full thickness pressure L Sacrum is 95% pink- moist,5% slough centrally. No exudate noted. Edges are macerated. Surrounding dark brown borders without induration. Unstageable Pressure injury L heel. Base of wound is 100% necrotic (L)3.5cm x (W )3.5cm.periwound is fluctuant but blanchable. Reabsorbed DTPI Dorsal L foot. dry brown discoloration without induration / fluctuance noted. Reabsorbed DTPI Lateral L 1st metatarsal. Dry callused skin without erythema, induration or fluctuance. Thick callus without erythema L Hallux. Unstageable Pressure injury R Heel (L)3.5cm x (W)6.2cm. Base of wound is 100% necrotic -dry. Edges adherent to base of wound. Periwound is blanchable. Reabsorbed DTPI R Hallux. Dry callused skin without erythema noted. Thick callused skin without erythema noted to lateral R 1st metatarsal. Wound prevention protocols continued as care-planned . Pt positioned with pillows and repositioned as per tolerance and within protocols. Tx.Plan: Cleanse Sacral wound with Saline. Apply TheraHoney. Apply Moisture Barrier Paste periwound. Cover with Optifoam drsg. Change every 3 days and prn. Apply Cavilon Skin Barrier to wounds L L Heel , L st metatarsal,Dorsal L Foot. Cover each Site with Optifoam drsg. Change every 7 days and prn. Apply Cavilon Skin Barrier to R Heel, R Hallux, R 1st metatarsal. Cover each site with Optifoam drsg. Change every 7 days and prn. APM/KHOA Mattress. Reposition at least every 2hours or as tolerated. Off-Load Heels with Pillows. (3) Leaking PEG tube Assessment & Plan: prior peg removed plan new placement soon will monitor site drainage noted packing placed Minimal drainage from prior G-tube site discussed with nursing about packing and dressings will continue current care plan plan for PEG tube once improved s/p peg 08/21 tf worsening hold tf g tube to suction LIS abd distention likely ileus possible asp pna cont abd cont support wean pressors Lung bases: Atelectasis at the lung bases. Liver: Unremarkable. No mass. Gallbladder and bile ducts: Unremarkable. No calcified stones. No ductal dilation. Pancreas: Unremarkable. No mass. No ductal dilation. Spleen: Unremarkable. No splenomegaly. Adrenals: Unremarkable. No mass. Kidneys and ureters: Nonobstructing stone in the lower pole of the right kidney. Stomach and bowel: Tract from a recent percutaneous gastrostomy tube which is healing in the subcutaneous fat. Surrounding inflammatory changes but no abscess. Severe colonic diverticulosis within the sigmoid colon with mural hypertrophy however no surrounding inflammatory changes to suggest acute diverticulitis. Underlying malignancy not excluded. No obstruction. Intraperitoneal space: Unremarkable. No free air. No significant fluid collection. Bones/joints: No acute fracture. No dislocation. Soft tissues: Fat stranding in the ventral abdomen. Vasculature: Unremarkable. No abdominal aortic aneurysm. Lymph nodes: Unremarkable. No enlarged lymph nodes. Tubes, lines and devices: Thakkar catheter within the bladder. IMPRESSION: 1. Severe colonic diverticulosis within the sigmoid colon with mural hypertrophy however no surrounding inflammatory changes to suggest acute diverticulitis. Underlying malignancy not excluded. 2. Tract from a recent percutaneous gastrostomy tube which is healing in the subcutaneous fat. Surrounding inflammatory changes but no abscess. (4) Person under investigation for COVID-19 Assessment & Plan: There is a tracheostomy. Calcified granuloma is seen in the right midlung. Granulomatous calcified nodes are seen in the left aortopulmonary window. No definite infiltrates, effusions, congestion. The heart size is upper limits normal. Impression: No definite acute abnormality Evidence of old granulomatous disease (5) Cardiopulmonary arrest Assessment & Plan: worsening family at bedside prognosis guarded Homero Cummings Aug 31, 2019 07:34
[2019-08-31] MEDS: Acetaminophen 650mg/20.3ml GT PRN ×2 (08:11→21:29)
--- NOTE | 2019-08-31 08:11 | NUR ---
NURSE NOTES: Tylenol 650mg given for mild pain. Will continue to monitor.
[2019-08-31] MEDS: Amantadine 100mg cap GT SCH (08:12)
[2019-08-31] MEDS: Ascorbic Acid 500mg tab GT SCH (08:13)
[2019-08-31] MEDS: Pantoprazole Inj IVP SCH (08:14)
[2019-08-31] MEDS: Vancomycin oral 125mg/2.5ml ORAL SCH ×4 (08:14→21:28)
[2019-08-31] MEDS: Metoprolol Tartrate 50mg tab GT SCH ×2 (08:22→21:25)
--- NOTE | 2019-08-31 08:44 | Pulmonology Progress Note ---
Subjective ROS Limited/Unobtainable: Yes Constitutional: Reports: fever, other - Ay=706.2 in am Allergies: Coded Allergies: No Known Allergies (Unverified , 08/07/19) Subjective remains ill in ICU hypotensive and s/p CPA renal function noted vitals noted family updated Objective Last 24 Hour Vital Signs Date Time Temp Pulse Resp B/P (MAP) Pulse Ox O2 Delivery O2 Flow Rate FiO2 08/31/19 08:39 86/33 08/31/19 08:22 132 89/52 08/31/19 07:00 146 30 100 08/31/19 07:00 144 30 97/69 (78) 100 08/31/19 06:45 140 28 100/43 (62) 100 08/31/19 06:30 138 30 85/40 (55) 100 08/31/19 06:15 139 28 73/45 (54) 100 08/31/19 06:00 135 28 69/40 (50) 100 08/31/19 06:00 64/26 08/31/19 05:45 137 45 90/50 (63) 100 08/31/19 05:30 137 33 96/48 (64) 100 08/31/19 05:15 137 38 104/39 (60) 100 08/31/19 05:00 139 39 89/49 (62) 100 08/31/19 05:00 104/39 08/31/19 04:45 137 30 97/70 (79) 100 08/31/19 04:30 137 33 101/53 (69) 100 08/31/19 04:15 137 34 101/71 (81) 100 08/31/19 04:00 Mechanical Ventilator 100.0 08/31/19 04:00 135 43 119/71 (87) 100 08/31/19 04:00 140 08/31/19 04:00 100 08/31/19 04:00 101/71 08/31/19 03:45 134 25 90/50 (63) 100 08/31/19 03:30 134 24 110/36 (60) 100 08/31/19 03:19 137 35 100 08/31/19 03:15 133 29 139/37 (71) 100 08/31/19 03:00 132 24 131/81 (98) 100 08/31/19 03:00 130/37 08/31/19 02:45 132 30 126/78 (94) 08/31/19 02:30 111 33 106/83 (91) 83 08/31/19 02:15 101 27 101/45 (63) 98 08/31/19 02:00 102 27 91/36 (54) 97 08/31/19 02:00 101/45 08/31/19 01:45 100 30 106/49 (68) 98 08/31/19 01:30 101 28 98/46 (63) 98 08/31/19 01:15 105 32 101/50 (67) 98 08/31/19 01:00 102 23 105/53 (70) 98 08/31/19 01:00 101/50 08/31/19 00:45 101 28 98/43 (61) 98 08/31/19 00:30 113 25 99/38 (58) 98 08/31/19 00:15 106 24 105/51 (69) 98 08/31/19 00:00 106 08/31/19 00:00 98.5 101 31 109/50 (69) 99 08/31/19 00:00 Mechanical Ventilator 100.0 08/31/19 00:00 100 08/31/19 00:00 98/54 08/30/19 23:45 99 26 110/40 (63) 99 08/30/19 23:30 99 25 132/54 (80) 99 08/30/19 23:15 100 24 128/55 (79) 99 08/30/19 23:00 128/55 08/30/19 23:00 101 23 108/46 (66) 99 08/30/19 22:57 125 32 100 08/30/19 22:45 102 27 126/36 (66) 99 08/30/19 22:30 109 24 111/70 (84) 99 08/30/19 22:15 101 27 137/58 (84) 99 08/30/19 22:00 121/57 08/30/19 22:00 112 24 121/57 (78) 98 08/30/19 21:45 117 47 125/46 (72) 98 08/30/19 21:30 94 27 102/40 (60) 99 08/30/19 21:15 92 27 87/43 (58) 96 08/30/19 21:00 92 29 88/42 (57) 96 08/30/19 21:00 75/41 08/30/19 20:45 92 26 82/35 (51) 96 08/30/19 20:35 91/34 08/30/19 20:34 93 91/34 08/30/19 20:30 93 27 86/32 (50) 96 08/30/19 20:15 96 27 91/39 (56) 97 08/30/19 20:00 103 08/30/19 20:00 85/41 08/30/19 20:00 Mechanical Ventilator 100.0 08/30/19 20:00 100 08/30/19 20:00 98.6 95 25 85/41 (56) 96 08/30/19 19:15 119 34 100 08/30/19 19:00 103 30 114/27 (56) 98 08/30/19 18:05 101 31 113/38 (63) 98 08/30/19 18:00 98.6 102 33 113/38 (63) 98 08/30/19 17:45 102 32 108/56 (73) 98 08/30/19 17:30 102 29 112/59 (76) 98 08/30/19 17:15 100 25 126/46 (72) 98 08/30/19 17:00 99 29 130/50 (76) 98 08/30/19 17:00 130/50 08/30/19 16:30 100 29 131/58 (82) 99 08/30/19 16:00 99 24 106/54 (71) 99 08/30/19 16:00 97 08/30/19 16:00 121/50 08/30/19 16:00 100 08/30/19 16:00 Mechanical Ventilator 08/30/19 15:30 97 25 121/50 (73) 98 08/30/19 15:19 95 08/30/19 15:00 93 25 116/58 (77) 99 08/30/19 15:00 116/58 08/30/19 14:45 99 27 103/38 (59) 98 08/30/19 14:39 96 33 100 08/30/19 14:30 99 21 109/35 (59) 99 08/30/19 14:15 94 27 124/56 (78) 94 08/30/19 14:00 117/52 08/30/19 14:00 95 22 117/52 (73) 99 08/30/19 13:30 94 20 117/52 (73) 100 08/30/19 13:00 96 23 111/53 (72) 100 08/30/19 13:00 111/53 08/30/19 12:30 93 24 118/47 (70) 99 08/30/19 12:00 98.8 93 25 121/45 (70) 99 08/30/19 12:00 121/45 08/30/19 12:00 90 08/30/19 12:00 100 08/30/19 12:00 Mechanical Ventilator 08/30/19 11:30 96 23 133/53 (79) 99 08/30/19 11:15 94 23 126/54 (78) 98 08/30/19 11:13 101 29 100 08/30/19 11:00 128/57 08/30/19 11:00 91 23 128/57 (80) 100 08/30/19 10:45 93 26 115/44 (67) 99 08/30/19 10:30 91 26 129/46 (73) 100 08/30/19 10:30 129/46 08/30/19 10:30 129/46 08/30/19 10:00 131/81 08/30/19 10:00 131/18 08/30/19 10:00 90 28 131/18 (55) 99 08/30/19 09:30 91 28 135/44 (74) 98 08/30/19 09:00 91 27 122/30 (60) 98 08/30/19 09:00 122/30 08/30/19 09:00 122/30 Intake and Output 08/30/19 08/31/19 19:00 07:00 Intake Total 1364.032 ml 1196.25 ml Output Total 115 ml 55 ml Balance 1249.032 ml 1141.25 ml IV Total 1314.032 ml 1196.25 ml Other 50 ml Output Urine Total 45 ml 55 ml Stool Total 70 ml # Bowel Movements 1 50 Objective WDWN trach poorly responsive reduced breath sounds bilaterally without rhonchi or wheeze [id number] tachy without MRG NABS nontender no CCE reduced LOC Microbiology Date/Time Source Procedure Growth Status 08/30/19 14:20 Blood Blood Culture - Preliminary Gram Negative Alfonso Resulted 08/30/19 14:15 Sputum Gram Stain - Final Resulted 08/30/19 14:15 Sputum Sputum Culture Pending Resulted Laboratory Tests 08/30/19 14:20: Lactic Acid Level 3.30H, Troponin I 19.587H 08/30/19 21:00: Lactic Acid Level 2.80H 08/31/19 04:00: Urine Color Alissa, Urine Appearance Cloudy, Urine pH 5, Urine Specific [place] 1.025, Urine Protein 3+H, Urine Glucose (UA) Negative, Urine Ketones 1+H, Urine Blood 3+H, Urine Nitrite PositiveH, Urine Bilirubin 2+H, Urine Ictotest Positive , Urine Urobilinogen 4H, Urine Leukocyte Esterase 2+H, Urine RBC 10-15H, Urine WBC 10-15H, Urine Squamous Epithelial Cells None, Urine Bacteria ManyH, Urine Yeast ManyH 08/31/19 04:02: Lactic Acid Level 3.00H, Troponin I 15.457H, White Blood Count 16.1H, Red Blood Count 3.59L, Hemoglobin 11.3L, Hematocrit 35.7L, Mean Corpuscular Volume 100H, Mean Corpuscular Hemoglobin 31.4H, Mean Corpuscular Hemoglobin Concent 31.5L, Red Cell Distribution Width 16.0H, Platelet Count 140L, Mean Platelet Volume 9.0 , Neutrophils (%) (Auto) , Lymphocytes (%) (Auto) , Monocytes (%) (Auto) , Eosinophils (%) (Auto) , Basophils (%) (Auto) , Neutrophils % (Manual) [Pending] , Lymphocytes % (Manual) [Pending], Platelet Estimate [Pending], Platelet Morphology [Pending], Sodium Level 140, Potassium Level 4.4, Chloride Level 105 , Carbon Dioxide Level 17L, Anion Gap 18H, Blood Urea Nitrogen 65H, Creatinine 4.7H, Estimat Glomerular Filtration Rate 14.8, Glucose Level 98, Calcium Level 6.8L Current Medications Medications (Trade) Dose Ordered Sig/Nury Route PRN Reason Start Time Stop Time Status Last Admin Dose Admin Acetaminophen (Tylenol) 325 mg Q6H PRN RECTAL Temp >100.5 08/28/19 03:45 09/07/19 21:44 Acetaminophen (Tylenol) 650 mg Q4H PRN GT Mild Pain (Pain Scale 1-3) 08/28/19 06:45 09/07/19 10:44 08/31/19 08:11 Acetaminophen (Tylenol) 650 mg Q4H PRN GT Temp >100.5 08/28/19 06:45 09/07/19 10:44 Amantadine HCl (Symmetrel) 100 mg DAILY GT 08/28/19 09:00 09/08/19 08:59 08/31/19 08:12 Ascorbic Acid (Vitamin C) 250 mg DAILY GT 08/28/19 09:00 09/08/19 08:59 08/31/19 08:13 Cefepime HCl 2 gm/ Dextrose 55 ml @ 110 mls/hr Q24H IVPB 08/30/19 13:00 09/06/19 12:59 08/30/19 13:15 Chlorhexidine Gluconate (Milagros-Hex 2%) 1 applic DAILY@2000 TOPIC 08/28/19 20:00 11/26/19 19:59 08/30/19 20:34 Dextrose/Sodium Chloride 1,000 ml @ 50 mls/hr Q20H IV 08/29/19 08:00 09/28/19 19:59 08/31/19 00:00 Folic Acid (Folate) 1 mg DAILY GT 08/28/19 09:00 09/07/19 14:29 08/31/19 08:13 Heparin Sodium (Porcine) (Heparin 5000 units/ml) 5,000 units EVERY 12 HOURS SUBQ 08/28/19 21:00 10/12/19 20:59 08/29/19 09:09 Hydralazine HCl (Apresoline) 10 mg Q6H PRN GT SBP above 160 08/28/19 04:00 11/26/19 03:59 Hydralazine HCl (Apresoline) 10 mg Q6H PRN IV SBP> 160 08/28/19 03:45 11/06/19 21:44 08/28/19 15:23 Linezolid 300 ml @ 300 mls/hr Q12HR IVPB 08/30/19 13:00 09/06/19 12:59 08/31/19 08:30 Lorazepam (Ativan 2mg/ml 1ml) 1 mg Q2H PRN IV For Anxiety 08/28/19 18:20 09/04/19 18:19 08/28/19 18:30 Metoprolol Tartrate (Lopressor) 50 mg Q12HR GT 08/28/19 09:00 11/24/19 08:59 08/31/19 08:22 Metronidazole 100 ml @ 100 mls/hr Q8HR IVPB 08/28/19 22:45 09/04/19 22:44 08/31/19 05:59 Multivitamins (Multivitamins) 1 tab DAILY GT 08/28/19 09:00 09/08/19 08:59 08/31/19 08:13 Norepinephrine Bitartrate 8 mg/ Dextrose 500 ml @ 0 mls/hr Q24H IV 08/29/19 07:45 09/28/19 07:44 08/31/19 08:39 Pantoprazole (Protonix) 40 mg DAILY IVP 08/29/19 09:00 09/08/19 22:59 08/31/19 08:14 Vancomycin HCl (Firvanq) 125 mg FOUR TIMES A DAY ORAL 08/28/19 13:00 09/04/19 12:59 08/31/19 08:14 Assessment/Plan Assessment/Plan anemia SVT respiratory failure trach chronic encephalopathy GT site infection with replacement low K severe protein calorie malnutrition hypotension s/p CPA electrolyte imbalance acute CT elevated troponin PLAN pressors close cardiology follow up hold antihypertensives vent support feeds per gi - GT care wound care monitor HH renal to see ID follow up critical at present ICU care needed critical and will update family impression, plan, and exam edited and reviewed in detail care discussed with Isaiah Villatoro MD Aug 31, 2019 08:44
[2019-08-31] MEDS: Heparin 5000 units/ml inj SUBQ SCH ×2 (09:00→21:00)
--- NOTE | 2019-08-31 10:00 | NUR ---
NURSE NOTES: Heart rhythm converted to Sinus rhythm with HR <100. Breathing appears less labored with less accessary muscle use.
--- NOTE | 2019-08-31 10:06 | NUR ---
RD ASSESSMENT & RECOMMENDATIONS SEE CARE ACTIVITY FOR COMPLETE ASSESSMENT DAILY ESTIMATED NEEDS: Needs based on Critical care, wound 79 kg 22-28 kcals/kg 1388-4973 total kcals 1.25-2 g protein/kg 99-158 g total protein 25-30 mL/kg 8216-6575 total fluid mLs NUTRITION DIAGNOSIS: Increased pro needs r/t wound healing as evidenced by pt w/ multiple wounds, refer to WC nurse eval, trach and peg dep, s/p PEG re-placement, TF held at this time. CURRENT TF:Glucerna 1.2 @65 ml/hr x24 hrs -> HELD ENTERAL NUTRITION RECOMMENDATIONS: Vital AF 1.2 @ 65ml/hr x 24 hrs to provide 1560ml, 1872kcal,117g prot, 1265ml free water - RESUME TF W/ HEMODYNAMIC STABILITY -> Rec TF change to Vital AF for easier GI tolerance given abdominal distention and +diarrhea w/ stool c-diff positive -> Initiate Vital AF 1.2 @ 15ml/hr x 6hrs, advance 10ml q 4-6 hrs as tolerated to goal rate -> Flush per MD. HOB over 30 degrees WITHOUT HEMODYANMIC STABILITY, rec trophic feeds of Vital AF 1.2 @ 10ml/hr ADDITIONAL RECOMMENDATIONS: 1) Per SNF: 5'11" and 174 lbs, maintain calibrated bedscale wts 2) Wound care: add JANE BID via TF + Zn SO4 220 mg qd x10 days 3) Monitor HD stability: s/p code blue 08/28, NE @ 12mcg 4) Monitor lytes, replete as needed 5) Monitor BGs, need for NISS 6) Monitor renal fxn- worsening, creat 1.0-> 4.7
--- NOTE | 2019-08-31 10:44 | Progress Note ---
DATE: 08/30/2019 CARDIOLOGY PROGRESS NOTE SUBJECTIVE: The patient continues to have episodes of hypotension requiring pressor support. Monitored rhythm, sinus and episodes of atrial fibrillation, rates have been better controlled. The patient has been on pressors intermittently. He remains on ventilator support. Last night bradycardia ensued and amiodarone was discontinued. PHYSICAL EXAMINATION: HEENT: Thin secretions from trach. LUNGS: Bilateral rhonchi. CARDIAC: Irregularly irregular rhythm. Normal S1, S2. ABDOMEN: Soft. EXTREMITIES: Trace dependent edema. LABORATORY AND DIAGNOSTIC DATA: White count 17.4, hemoglobin 11.4. Lactic acid 3.2. 19.5. BUN 58, creatinine 4. EKG, sinus rhythm, low voltage. Nonspecific ST changes. Chest x-ray reveals retrocardiac infiltrate and decreasing right basilar infiltrate. IMPRESSION: 1. Acute myocardial infarction. 2. Cardiogenic and septic shock. 3. Acute renal failure. 4. Respiratory failure. 5. Shock liver. 6. Severe protein-calorie malnutrition. 7. Paroxysmal atrial fibrillation. 8. Severe leukocytosis. 9. Conduction system disease. PLAN: 1. Taper pressors. 2. Antimicrobials. 3. Ventilator support. 4. Beta-albaro as tolerated by blood pressure. 5. Hold antihypertensives otherwise until blood pressure parameters stabilize. 6. DVT prophylaxis. 7. Antiarrhythmics discontinued. Augustine Fisher M.D. DR: BLAKE JOB#: [id number] CC:
--- NOTE | 2019-08-31 11:00 | NUR ---
NURSE NOTES: Resumed tube feeding at 10cc/hr. HOB elevated high. Will check residual q4hrs as ordered.
--- NOTE | 2019-08-31 11:32 | NUR ---
COAT TAILOR NOTE:INSURANCE S/W MINIRVA AT [facility]. VERBAL REPORT OF PATIENT ICU STATUS PROVIDED. PER MINIRVA, PATIENT CONTINUES TO MEED ICU CRITERIA AT THIS TIME BASED ON REPORT GIVEN.
--- NOTE | 2019-08-31 12:17 | NUR ---
*-* INSURANCE *-* UPDATED CLINICALS HAVE BEEN FAXED TO: [facility] F: [phone] REF#[id number]
--- NOTE | 2019-08-31 12:36 | Infectious Diseases Prog Note ---
Assessment/Plan Assessment/Plan A: shock Gram negative sepsis C. difficile colitis Acute NE Gastrostomy infection Pseudomonas & Providencia pneumonia VDRF Anemia Pressure ulcer Diverticulosis P; Continue PO Vancomycin & Cefepime Discontinue Linezolid Consider removal of PICC line, when is more stable Will f/u cultures Subjective ROS Limited/Unobtainable: Yes Constitutional: Denies: fever Gastrointestinal/Abdominal: Reports: diarrhea Allergies: Coded Allergies: No Known Allergies (Unverified , 08/07/19) Objective Last 24 Hour Vital Signs Date Time Temp Pulse Resp B/P (MAP) Pulse Ox O2 Delivery O2 Flow Rate FiO2 08/31/19 12:01 82 22 103/51 (68) 100 08/31/19 12:01 83 08/31/19 12:00 106/51 08/31/19 12:00 80 08/31/19 12:00 99.3 82 24 106/51 (69) 100 08/31/19 12:00 Mechanical Ventilator 100.0 08/31/19 11:30 81 24 106/51 (69) 100 08/31/19 11:30 83 24 98/55 (69) 100 08/31/19 11:00 99/46 08/31/19 11:00 85 24 99/46 (63) 100 08/31/19 10:45 89 26 100/47 (64) 100 08/31/19 10:37 107 27 80 08/31/19 10:30 108 27 107/45 (65) 100 08/31/19 10:15 108 30 103/45 (64) 100 08/31/19 10:00 90 30 108/42 (64) 100 08/31/19 10:00 108/42 08/31/19 09:45 109 28 108/38 (61) 100 08/31/19 09:30 109 28 103/42 (62) 100 08/31/19 09:15 105 31 106/36 (59) 100 08/31/19 09:00 112 31 88/52 (64) 100 08/31/19 09:00 106/36 08/31/19 08:45 138 30 86/23 (44) 100 08/31/19 08:39 86/33 08/31/19 08:30 142 30 78/37 (51) 100 08/31/19 08:22 132 89/52 08/31/19 08:15 140 31 89/52 (64) 100 08/31/19 08:00 Mechanical Ventilator 100.0 08/31/19 08:00 100 08/31/19 08:00 89/52 08/31/19 08:00 142 08/31/19 08:00 99.3 144 30 95/74 (81) 100 08/31/19 07:56 140 08/31/19 07:30 144 31 105/39 (61) 100 08/31/19 07:00 146 30 100 08/31/19 07:00 101/39 08/31/19 07:00 144 30 97/69 (78) 100 08/31/19 06:45 140 28 100/43 (62) 100 08/31/19 06:30 138 30 85/40 (55) 100 08/31/19 06:15 139 28 73/45 (54) 100 08/31/19 06:00 135 28 69/40 (50) 100 08/31/19 06:00 64/26 08/31/19 05:45 137 45 90/50 (63) 100 08/31/19 05:30 137 33 96/48 (64) 100 08/31/19 05:15 137 38 104/39 (60) 100 08/31/19 05:00 139 39 89/49 (62) 100 08/31/19 05:00 104/39 08/31/19 04:45 137 30 97/70 (79) 100 08/31/19 04:30 137 33 101/53 (69) 100 08/31/19 04:15 137 34 101/71 (81) 100 08/31/19 04:00 Mechanical Ventilator 100.0 08/31/19 04:00 135 43 119/71 (87) 100 08/31/19 04:00 140 08/31/19 04:00 100 08/31/19 04:00 101/71 08/31/19 03:45 134 25 90/50 (63) 100 08/31/19 03:30 134 24 110/36 (60) 100 08/31/19 03:19 137 35 100 08/31/19 03:15 133 29 139/37 (71) 100 08/31/19 03:00 132 24 131/81 (98) 100 08/31/19 03:00 130/37 08/31/19 02:45 132 30 126/78 (94) 08/31/19 02:30 111 33 106/83 (91) 83 08/31/19 02:15 101 27 101/45 (63) 98 08/31/19 02:00 102 27 91/36 (54) 97 08/31/19 02:00 101/45 08/31/19 01:45 100 30 106/49 (68) 98 08/31/19 01:30 101 28 98/46 (63) 98 08/31/19 01:15 105 32 101/50 (67) 98 08/31/19 01:00 102 23 105/53 (70) 98 08/31/19 01:00 101/50 08/31/19 00:45 101 28 98/43 (61) 98 08/31/19 00:30 113 25 99/38 (58) 98 08/31/19 00:15 106 24 105/51 (69) 98 08/31/19 00:00 106 08/31/19 00:00 98.5 101 31 109/50 (69) 99 08/31/19 00:00 Mechanical Ventilator 100.0 08/31/19 00:00 100 08/31/19 00:00 98/54 08/30/19 23:45 99 26 110/40 (63) 99 08/30/19 23:30 99 25 132/54 (80) 99 08/30/19 23:15 100 24 128/55 (79) 99 08/30/19 23:00 128/55 08/30/19 23:00 101 23 108/46 (66) 99 08/30/19 22:57 125 32 100 08/30/19 22:45 102 27 126/36 (66) 99 08/30/19 22:30 109 24 111/70 (84) 99 08/30/19 22:15 101 27 137/58 (84) 99 08/30/19 22:00 121/57 08/30/19 22:00 112 24 121/57 (78) 98 08/30/19 21:45 117 47 125/46 (72) 98 08/30/19 21:30 94 27 102/40 (60) 99 08/30/19 21:15 92 27 87/43 (58) 96 08/30/19 21:00 92 29 88/42 (57) 96 08/30/19 21:00 75/41 08/30/19 20:45 92 26 82/35 (51) 96 08/30/19 20:35 91/34 08/30/19 20:34 93 91/34 08/30/19 20:30 93 27 86/32 (50) 96 08/30/19 20:15 96 27 91/39 (56) 97 08/30/19 20:00 103 08/30/19 20:00 85/41 08/30/19 20:00 Mechanical Ventilator 100.0 08/30/19 20:00 100 08/30/19 20:00 98.6 95 25 85/41 (56) 96 08/30/19 19:15 119 34 100 08/30/19 19:00 103 30 114/27 (56) 98 08/30/19 18:05 101 31 113/38 (63) 98 08/30/19 18:00 98.6 102 33 113/38 (63) 98 08/30/19 17:45 102 32 108/56 (73) 98 08/30/19 17:30 102 29 112/59 (76) 98 08/30/19 17:15 100 25 126/46 (72) 98 08/30/19 17:00 99 29 130/50 (76) 98 08/30/19 17:00 130/50 08/30/19 16:30 100 29 131/58 (82) 99 08/30/19 16:00 99 24 106/54 (71) 99 08/30/19 16:00 97 08/30/19 16:00 121/50 08/30/19 16:00 100 08/30/19 16:00 Mechanical Ventilator 08/30/19 15:30 97 25 121/50 (73) 98 08/30/19 15:19 95 08/30/19 15:00 93 25 116/58 (77) 99 08/30/19 15:00 116/58 08/30/19 14:45 99 27 103/38 (59) 98 08/30/19 14:39 96 33 100 08/30/19 14:30 99 21 109/35 (59) 99 08/30/19 14:15 94 27 124/56 (78) 94 08/30/19 14:00 117/52 08/30/19 14:00 95 22 117/52 (73) 99 08/30/19 13:30 94 20 117/52 (73) 100 08/30/19 13:00 96 23 111/53 (72) 100 08/30/19 13:00 111/53 08/30/19 12:30 93 24 118/47 (70) 99 Height (Feet): 5 Height (Inches): 10.00 Weight (Pounds): 255 HEENT: status post trach Respiratory/Chest: lungs clear, other - on ventilator Cardiovascular: normal rate, other - left arm PICC line Abdomen: soft, non tender, other - GT & rectal tube Extremities: other - edema Neurologic/Psychiatric: aphasia Microbiology Date/Time Source Procedure Growth Status 08/30/19 14:20 Blood Blood Culture - Preliminary Gram Negative Alfonso Resulted 08/30/19 14:15 Sputum Gram Stain - Final Resulted 08/30/19 14:15 Sputum Culture - Preliminary Gram Negative Bacillus 1 Resulted Laboratory Tests Test 08/30/19 14:20 08/30/19 21:00 08/31/19 04:00 08/31/19 04:02 Lactic Acid Level 3.30 mmol/L (0.4-2.0) H 2.80 mmol/L (0.4-2.0) H 3.00 mmol/L (0.4-2.0) H Troponin I 19.587 ng/mL (0.000-0.056) 15.457 ng/mL (0.000-0.056) Urine Color Alissa Urine Appearance Cloudy Urine pH 5 (4.5-8.0) Urine Specific [place] 1.025 (1.005-1.035) Urine Protein 3+ (NEGATIVE) H Urine Glucose (UA) Negative (NEGATIVE) Urine Ketones 1+ (NEGATIVE) H Urine Blood 3+ (NEGATIVE) H Urine Nitrite Positive (NEGATIVE) H Urine Bilirubin 2+ (NEGATIVE) H Urine Ictotest Positive (NEGATIVE) Urine Urobilinogen 4 MG/DL (0.0-1.0) H Urine Leukocyte Esterase 2+ (NEGATIVE) H Urine RBC 10-15 /HPF (0 - 0) H Urine WBC 10-15 /HPF (0 - 0) H Urine Squamous Epithelial Cells None /LPF (NONE/OCC) Urine Bacteria Many /HPF (NONE) H Urine Yeast Many /HPF (NONE) H White Blood Count 16.1 K/UL (4.8-10.8) H Red Blood Count 3.59 M/UL (4.70-6.10) L Hemoglobin 11.3 G/DL (14.2-18.0) L Hematocrit 35.7 % (42.0-52.0) L Mean Corpuscular Volume 100 FL (80-99) H Mean Corpuscular Hemoglobin 31.4 PG (27.0-31.0) H Mean Corpuscular Hemoglobin Concent 31.5 G/DL (32.0-36.0) L Red Cell Distribution Width 16.0 % (11.6-14.8) H Platelet Count 140 K/UL (150-450) L Mean Platelet Volume 9.0 FL (6.5-10.1) Neutrophils (%) (Auto) % (45.0-75.0) Lymphocytes (%) (Auto) % (20.0-45.0) Monocytes (%) (Auto) % (1.0-10.0) Eosinophils (%) (Auto) % (0.0-3.0) Basophils (%) (Auto) % (0.0-2.0) Differential Total Cells Counted 100 Neutrophils % (Manual) 81 % (45-75) H Lymphocytes % (Manual) 3 % (20-45) L Monocytes % (Manual) 3 % (1-10) Eosinophils % (Manual) 0 % (0-3) Basophils % (Manual) 0 % (0-2) Band Neutrophils 13 % (0-8) H Platelet Estimate Decreased L Platelet Morphology Normal Hypochromasia 1+ Anisocytosis 1+ Macrocytosis 1+ Sodium Level 140 MMOL/L (136-145) Potassium Level 4.4 MMOL/L (3.5-5.1) Chloride Level 105 MMOL/L (98-107) Carbon Dioxide Level 17 MMOL/L (21-32) L Anion Gap 18 mmol/L (5-15) H Blood Urea Nitrogen 65 mg/dL (7-18) H Creatinine 4.7 MG/DL (0.55-1.30) H Estimat Glomerular Filtration Rate 14.8 mL/min (>60) Glucose Level 98 MG/DL (74-106) Calcium Level 6.8 MG/DL (8.5-10.1) L Test 7/2/20 11:45 Lactic Acid Level Pending Troponin I Pending Current Medications Medications (Trade) Dose Ordered Sig/Nury Route PRN Reason Start Time Stop Time Status Last Admin Dose Admin Acetaminophen (Tylenol) 325 mg Q6H PRN RECTAL Temp >100.5 08/28/19 03:45 09/07/19 21:44 Acetaminophen (Tylenol) 650 mg Q4H PRN GT Mild Pain (Pain Scale 1-3) 08/28/19 06:45 09/07/19 10:44 08/31/19 08:11 Acetaminophen (Tylenol) 650 mg Q4H PRN GT Temp >100.5 08/28/19 06:45 09/07/19 10:44 Amantadine HCl (Symmetrel) 100 mg DAILY GT 08/28/19 09:00 09/08/19 08:59 08/31/19 08:12 Ascorbic Acid (Vitamin C) 250 mg DAILY GT 08/28/19 09:00 09/08/19 08:59 08/31/19 08:13 Cefepime HCl 2 gm/ Dextrose 55 ml @ 110 mls/hr Q24H IVPB 08/30/19 13:00 09/06/19 12:59 08/30/19 13:15 Chlorhexidine Gluconate (Milagros-Hex 2%) 1 applic DAILY@2000 TOPIC 08/28/19 20:00 11/26/19 19:59 08/30/19 20:34 Dextrose/Sodium Chloride 1,000 ml @ 50 mls/hr Q20H IV 08/29/19 08:00 09/28/19 19:59 08/31/19 00:00 Folic Acid (Folate) 1 mg DAILY GT 08/28/19 09:00 09/07/19 14:29 08/31/19 08:13 Heparin Sodium (Porcine) (Heparin 5000 units/ml) 5,000 units EVERY 12 HOURS SUBQ 08/28/19 21:00 10/12/19 20:59 08/29/19 09:09 Hydralazine HCl (Apresoline) 10 mg Q6H PRN GT SBP above 160 08/28/19 04:00 11/26/19 03:59 Hydralazine HCl (Apresoline) 10 mg Q6H PRN IV SBP> 160 08/28/19 03:45 11/06/19 21:44 08/28/19 15:23 Linezolid 300 ml @ 300 mls/hr Q12HR IVPB 08/30/19 13:00 09/06/19 12:59 08/31/19 08:30 Lorazepam (Ativan 2mg/ml 1ml) 1 mg Q2H PRN IV For Anxiety 08/28/19 18:20 09/04/19 18:19 08/28/19 18:30 Metoprolol Tartrate (Lopressor) 50 mg Q12HR GT 08/28/19 09:00 11/24/19 08:59 08/31/19 08:22 Metronidazole 100 ml @ 100 mls/hr Q8HR IVPB 08/28/19 22:45 09/04/19 22:44 08/31/19 05:59 Multivitamins (Multivitamins) 1 tab DAILY GT 08/28/19 09:00 09/08/19 08:59 08/31/19 08:13 Norepinephrine Bitartrate 8 mg/ Dextrose 500 ml @ 0 mls/hr Q24H IV 08/29/19 07:45 09/28/19 07:44 08/31/19 08:39 Pantoprazole (Protonix) 40 mg DAILY IVP 08/29/19 09:00 09/08/19 22:59 08/31/19 08:14 Vancomycin HCl (Firvanq) 125 mg FOUR TIMES A DAY ORAL 08/28/19 13:00 09/04/19 12:59 08/31/19 08:14 Issa Snow MD Aug 31, 2019 12:36
--- NOTE | 2019-08-31 12:48 | NUR ---
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 HR 76, BP 108/46, O2 sat 100% on FiO2 80%. Will continue to monitor. Awaiting 2Decho to be done.
[2019-08-31] MEDS: Cefepime HCl 2 GM in D5W 55 ML IVPB SCH (13:36)
--- NOTE | 2019-08-31 14:30 | NUR ---
NURSE NOTES: Cleaned patient for small amount of leaked BM from rectal tube and repositioned patient. 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 Oral care done. Trach dressing changed. Will continue to monitor. Addendum: 08/31/19 at 1920 by JORGE BACK RN RN wrong time
--- NOTE | 2019-08-31 14:31 | NUR ---
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 Patient is tolerating the current vent setting with FiO2 80%. O2 sat 100%. Turned and repositioned patient. Visitors briefly came by. Spoke with EYAD Adkins and granddaughter on the phone and updated her with patient's current condition.
--- NOTE | 2019-08-31 16:30 | NUR ---
NURSE NOTES: Cleaned patient for small amount of leaked BM from rectal tube and repositioned patient. 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 Oral care done. Trach dressing changed. Will continue to monitor.
--- NOTE | 2019-08-31 19:10 | NUR ---
HAND-OFF: Report given to KEHINDE Clifton.
--- NOTE | 2019-08-31 19:11 | NUR ---
NURSE NOTES: Patient received from KEHINDE Jones. patient noted with eyes covered shut to prevent dryness. eyes open spontaneously but patient unable to follow commands. patient with portex 8 on ventilator AC 14 TV 450 FiO2 80% PEEP 5. BP 130/51 HR92, afib on monitor temp 100.6F axillary. Left upper arm PICC running Levophed 12mcg/hr and D51/2NS @ 50ml/hr clean and asymptomatic. gtube running glucerna 1.2 @10ml/hr. abdomen soft round distended. lindsey catheter draining scant amount dark marifer urine. rectal tube with small amount of brown loose stool. sacral stage IV, bilateral heel unstageable, left lateral heel DTPI dressing clean and intact. bialteral hand +2 pitting edema noted. will continue plan of care.
[2019-08-31] MEDS: Dyna-Hex 2% Top Sol 2oz TOPIC SCH (20:00)
[2019-08-31] MEDS: D5 1/2NS 1,000 ML IV SCH ×2 (21:05)
--- NOTE | 2019-08-31 21:19 | General Progress Note ---
Assessment/Plan Assessment/Plan: Assessment - Arterial GT site bleeding - repaired - Anemia -acute and chronic - C difficile - Ileus / abd distention - improved with bowel rest - GT migration - removed - Abdominal wall induration and discharge, improved - anemia - OB (+) stools - due to ulcerative gastritis, no colonoscopy per DPOA - s/p Trach - Macrocytic indicies - normal B12 and folate - poor prognosis Recommendations - PPI - transfuse PRN - Restart TF - off abx per ID - follow exam and labs - supportive care Subjective Allergies: Coded Allergies: No Known Allergies (Unverified , 08/07/19) Subjective Above noted patient seen this am in ICU d/w RN abdomen less distended advised RN to start TF Objective Last 24 Hour Vital Signs Date Time Temp Pulse Resp B/P (MAP) Pulse Ox O2 Delivery O2 Flow Rate FiO2 08/31/19 20:00 100.6 90 25 108/43 (64) 100 08/31/19 20:00 80 08/31/19 19:10 104 31 80 08/31/19 19:00 89 31 123/52 (75) 100 08/31/19 19:00 123/52 08/31/19 18:54 117/51 08/31/19 18:30 106 23 117/51 (73) 100 08/31/19 18:00 120/52 08/31/19 18:00 84 33 120/52 (74) 100 08/31/19 17:30 81 31 114/44 (67) 100 08/31/19 17:00 81 31 110/40 (63) 100 08/31/19 17:00 110/40 08/31/19 16:30 85 27 111/42 (65) 100 08/31/19 16:00 99.0 83 28 109/45 (66) 100 08/31/19 16:00 Mechanical Ventilator 80.0 08/31/19 16:00 80 08/31/19 16:00 109/45 08/31/19 15:30 98 27 87/43 (58) 100 08/31/19 15:29 114 08/31/19 15:21 89 35 80 08/31/19 15:00 92 24 90/47 (61) 100 08/31/19 15:00 90/47 08/31/19 14:30 93 21 90/43 (59) 100 08/31/19 14:00 104/43 08/31/19 14:00 88 20 104/43 (63) 100 08/31/19 13:30 104 22 108/46 (66) 100 08/31/19 13:15 78 23 107/49 (68) 100 08/31/19 13:03 105 23 115/47 (69) 100 08/31/19 13:00 80 27 115/47 (69) 100 08/31/19 13:00 115/74 08/31/19 12:45 87 23 108/46 (66) 100 08/31/19 12:30 79 21 118/52 (74) 100 08/31/19 12:01 82 22 103/51 (68) 100 08/31/19 12:01 83 08/31/19 12:00 106/51 08/31/19 12:00 80 08/31/19 12:00 99.3 82 24 106/51 (69) 100 08/31/19 12:00 Mechanical Ventilator 100.0 08/31/19 11:30 81 24 106/51 (69) 100 08/31/19 11:30 83 24 98/55 (69) 100 08/31/19 11:00 99/46 08/31/19 11:00 85 24 99/46 (63) 100 08/31/19 10:45 89 26 100/47 (64) 100 08/31/19 10:37 107 27 80 08/31/19 10:30 108 27 107/45 (65) 100 08/31/19 10:15 108 30 103/45 (64) 100 08/31/19 10:00 90 30 108/42 (64) 100 08/31/19 10:00 108/42 08/31/19 09:45 109 28 108/38 (61) 100 08/31/19 09:30 109 28 103/42 (62) 100 08/31/19 09:15 105 31 106/36 (59) 100 08/31/19 09:00 112 31 88/52 (64) 100 08/31/19 09:00 106/36 08/31/19 08:45 138 30 86/23 (44) 100 08/31/19 08:39 86/33 08/31/19 08:30 142 30 78/37 (51) 100 08/31/19 08:22 132 89/52 08/31/19 08:15 140 31 89/52 (64) 100 08/31/19 08:00 Mechanical Ventilator 100.0 08/31/19 08:00 100 08/31/19 08:00 89/52 08/31/19 08:00 142 08/31/19 08:00 99.3 144 30 95/74 (81) 100 08/31/19 07:56 140 08/31/19 07:30 144 31 105/39 (61) 100 08/31/19 07:00 146 30 100 08/31/19 07:00 101/39 08/31/19 07:00 144 30 97/69 (78) 100 08/31/19 06:45 140 28 100/43 (62) 100 08/31/19 06:30 138 30 85/40 (55) 100 08/31/19 06:15 139 28 73/45 (54) 100 08/31/19 06:00 135 28 69/40 (50) 100 08/31/19 06:00 64/26 08/31/19 05:45 137 45 90/50 (63) 100 08/31/19 05:30 137 33 96/48 (64) 100 08/31/19 05:15 137 38 104/39 (60) 100 08/31/19 05:00 139 39 89/49 (62) 100 08/31/19 05:00 104/39 08/31/19 04:45 137 30 97/70 (79) 100 08/31/19 04:30 137 33 101/53 (69) 100 08/31/19 04:15 137 34 101/71 (81) 100 08/31/19 04:00 Mechanical Ventilator 100.0 08/31/19 04:00 135 43 119/71 (87) 100 08/31/19 04:00 140 08/31/19 04:00 100 08/31/19 04:00 101/71 08/31/19 03:45 134 25 90/50 (63) 100 08/31/19 03:30 134 24 110/36 (60) 100 08/31/19 03:19 137 35 100 08/31/19 03:15 133 29 139/37 (71) 100 08/31/19 03:00 132 24 131/81 (98) 100 08/31/19 03:00 130/37 08/31/19 02:45 132 30 126/78 (94) 08/31/19 02:30 111 33 106/83 (91) 83 08/31/19 02:15 101 27 101/45 (63) 98 08/31/19 02:00 102 27 91/36 (54) 97 08/31/19 02:00 101/45 08/31/19 01:45 100 30 106/49 (68) 98 08/31/19 01:30 101 28 98/46 (63) 98 08/31/19 01:15 105 32 101/50 (67) 98 08/31/19 01:00 102 23 105/53 (70) 98 08/31/19 01:00 101/50 08/31/19 00:45 101 28 98/43 (61) 98 08/31/19 00:30 113 25 99/38 (58) 98 08/31/19 00:15 106 24 105/51 (69) 98 08/31/19 00:00 106 08/31/19 00:00 98.5 101 31 109/50 (69) 99 08/31/19 00:00 Mechanical Ventilator 100.0 08/31/19 00:00 100 08/31/19 00:00 98/54 08/30/19 23:45 99 26 110/40 (63) 99 08/30/19 23:30 99 25 132/54 (80) 99 08/30/19 23:15 100 24 128/55 (79) 99 08/30/19 23:00 128/55 08/30/19 23:00 101 23 108/46 (66) 99 08/30/19 22:57 125 32 100 08/30/19 22:45 102 27 126/36 (66) 99 08/30/19 22:30 109 24 111/70 (84) 99 08/30/19 22:15 101 27 137/58 (84) 99 08/30/19 22:00 121/57 08/30/19 22:00 112 24 121/57 (78) 98 08/30/19 21:45 117 47 125/46 (72) 98 08/30/19 21:30 94 27 102/40 (60) 99 Intake and Output 08/30/19 08/31/19 19:00 07:00 Intake Total 1364.032 ml 1283.75 ml Output Total 115 ml 55 ml Balance 1249.032 ml 1228.75 ml IV Total 1314.032 ml 1283.75 ml Other 50 ml Output Urine Total 45 ml 55 ml Stool Total 70 ml # Bowel Movements 1 50 Laboratory Tests 08/31/19 04:00: Urine Color Alissa, Urine Appearance Cloudy, Urine pH 5, Urine Specific [place] 1.025, Urine Protein 3+H, Urine Glucose (UA) Negative, Urine Ketones 1+H, Urine Blood 3+H, Urine Nitrite PositiveH, Urine Bilirubin 2+H, Urine Ictotest Positive , Urine Urobilinogen 4H, Urine Leukocyte Esterase 2+H, Urine RBC 10-15H, Urine WBC 10-15H, Urine Squamous Epithelial Cells None, Urine Bacteria ManyH, Urine Yeast ManyH 08/31/19 04:02: White Blood Count 16.1H, Red Blood Count 3.59L, Hemoglobin 11.3L, Hematocrit 35.7L, Mean Corpuscular Volume 100H, Mean Corpuscular Hemoglobin 31.4H, Mean Corpuscular Hemoglobin Concent 31.5L, Red Cell Distribution Width 16.0H, Platelet Count 140L, Mean Platelet Volume 9.0, Neutrophils (%) (Auto) , Lymphocytes (%) (Auto) , Monocytes (%) (Auto) , Eosinophils (%) (Auto) , Basophils (%) (Auto) , Differential Total Cells Counted 100, Neutrophils % ( Manual) 81H, Lymphocytes % (Manual) 3L, Monocytes % (Manual) 3, Eosinophils % ( Manual) 0, Basophils % (Manual) 0, Band Neutrophils 13H, Platelet Estimate DecreasedL, Platelet Morphology Normal, Hypochromasia 1+, Anisocytosis 1+, Macrocytosis 1+, Sodium Level 140, Potassium Level 4.4, Chloride Level 105, Carbon Dioxide Level 17L, Anion Gap 18H, Blood Urea Nitrogen 65H, Creatinine 4.7H, Estimat Glomerular Filtration Rate 14.8, Glucose Level 98, Lactic Acid Level 3.00H, Calcium Level 6.8L, Troponin I 15.457H 08/31/19 11:45: Lactic Acid Level 3.00H, Troponin I 13.908H 08/31/19 20:00: Lactic Acid Level 2.70H, Troponin I 12.742H Height (Feet): 5 Height (Inches): 10.00 Weight (Pounds): 255 Objective Obese AA Man NCAT (+) Trach coarse BS RR Abd Healing prior GT site, some erythema around new GT site less distended abdomen trace edema non interactive Rubia Hawk MD Aug 31, 2019 21:19
--- NOTE | 2019-08-31 22:00 | NUR ---
NURSE NOTES: patient obtunded, opens eyes spontaneously but unable to follow commands. patient with portex 8 on ventilator AC 14 TV 450 FiO2 80% PEEP 5. BP 103/49 HR83, afib on monitor temp 100.6F axillary, prn tylenol administered. Left upper arm PICC running Levophed 12mcg/hr and D51/2NS @ 50ml/hr clean and asymptomatic. gtube running glucerna 1.2 @10ml/hr. lindsey catheter draining scant amount dark marifer urine. rectal tube in place. patient repositioned and oral care provided. will continue to monitor.
[2019-09-01] VITALS (37 sets, daily range): BP systolic 82–153; BP diastolic 34–68
--- NOTE | 2019-09-01 | NUR ---
NURSE NOTES: patient obtunded with trach on ventilator AC 14 TV 450 FiO2 80% PEEP 5. large amount of thick velez secretions from trach noted. BP 111/51 HR80, afib on monitor temp 101F axillary. Left upper arm PICC running Levophed 14mcg/hr and D51/2NS @ 50ml/hr clean and asymptomatic. gtube running glucerna 1.2 @10ml/hr. Thakkar catheter draining scant amount dark marifer urine. rectal tube in place. patient repositioned and oral care provided. will continue to monitor.
--- NOTE | 2019-09-01 00:45 | Progress Note ---
DATE: 08/31/2019 SUBJECTIVE: The patient is febrile. Blood pressure parameters are stabilizing. Monitored rhythm sinus with paroxysms of atrial fibrillation. PHYSICAL EXAMINATION: LUNGS: Bilateral breath sounds, rhonchi. Thin trach secretions. HEART: Regular rhythm and rate. Normal S1, S2. ABDOMEN: Distended but soft. A 1+ edema. LABORATORY AND DIAGNOSTIC DATA: EKG reveals low voltage, sinus rhythm, intraventricular conduction delay. White count 16, hemoglobin 11. Lactic acid 2.7. Troponin down to 12.7. Sodium 140, potassium 4.4, BUN 65, creatinine 4.7. IMPRESSION: 1. Acute myocardial infarction. 2. Sepsis with recovering shock. 3. Respiratory failure. 4. Healthcare-associated pneumonia. 5. Lactic acidosis. 6. Acute on chronic renal failure. 7. Ileus, recovering. 8. Status post G-tube migration and removal. 9. Paroxysmal supraventricular tachyarrhythmias. 10. Paroxysmal atrial fibrillation PLAN: 1. Nutrition by feeding tube. 2. Antimicrobials. 3. Taper pressors. 4. Off antihypertensives, beta-albaro alone. 5. Ventilator support. 6. Remains critical and guarded. Augustine Fisher M.D. DR: Derrick JOB#: [id number] CC:
[2019-09-01] MEDS: Acetaminophen 650mg/20.3ml GT PRN ×2 (01:41→17:57)
--- NOTE | 2019-09-01 02:00 | NUR ---
NURSE NOTES: patient obtunded with trach on ventilator AC 14 TV 450 FiO2 80% PEEP 5. BP 117/53 HR83, afib on monitor temp 100.9F axillary, prn tylenol administered. Left upper arm PICC running Levophed 14mcg/hr and D51/2NS @ 50ml/hr clean and asymptomatic. gtube running glucerna 1.2 @10ml/hr, gtube dressing changed with small amount of velez discharge noted. lindsey catheter draining scant amount dark marifer urine. rectal tube in place. patient given CHG bath, repositioned and oral care provided. will continue to monitor.
--- NOTE | 2019-09-01 04:00 | NUR ---
NURSE NOTES: patient obtunded with trach on ventilator AC 14 TV 450 FiO2 80% PEEP 5. BP 125/46 HR86, afib on monitor temp 100.7F axillary. Left upper arm PICC running Levophed 10mcg/hr and D51/2NS @ 50ml/hr clean and asymptomatic. gtube running glucerna 1.2 @10ml/hr, gtube dressing changed with small amount of velez discharge noted. lindsey catheter draining scant amount dark marifer urine. rectal tube in place. patient repositioned and oral care provided. will continue to monitor.
[2019-09-01 05:58] LABS: HEMATOCRIT 31.4 % (42.0-52.0); HEMOGLOBIN 9.8 G/DL (14.2-18.0); MEAN CORPUSCULAR VOLUME 100 FL (80-99); PLATELET COUNT 105 K/UL (150-450); RED BLOOD COUNT 3.15 M/UL (4.70-6.10); RED CELL DISTRIBUTION WIDTH 16.1 % (11.6-14.8); WHITE BLOOD COUNT 17.9 K/UL (4.8-10.8)
--- NOTE | 2019-09-01 06:00 | NUR ---
NURSE NOTES: patient obtunded with trach on ventilator AC 14 TV 450 FiO2 80% PEEP 5 moderate amount of thick velez trach secretions noted. BP 125/46 HR88, NSR on monitor. Left upper arm PICC running Levophed 10mcg/hr and D51/2NS @ 50ml/hr clean and asymptomatic. gtube running Glucerna 1.2 @10ml/hr. lindsey catheter draining scant amount dark marifer urine. rectal tube draining loose brown stool. bilateral hand +2 pitting edema noted. patient repositioned and oral care provided. will continue to monitor.
[2019-09-01 06:23] LABS: ALANINE AMINOTRANSFERASE 173 U/L (12-78); ALBUMIN/GLOBULIN RATIO 0.2 (1.0-2.7); ALKALINE PHOSPHATASE 139 U/L (46-116); ANION GAP 17 mmol/L (5-15); ASPARTATE AMINO TRANSFERASE 138 U/L (15-37); BILIRUBIN,TOTAL 1.4 MG/DL (0.2-1.0); BLOOD UREA NITROGEN 70 mg/dL (7-18); CARBON DIOXIDE 15 MMOL/L (21-32); CHLORIDE 101 MMOL/L (98-107); CREATININE 5.4 MG/DL (0.55-1.30); POTASSIUM 3.8 MMOL/L (3.5-5.1); SODIUM 133 MMOL/L (136-145)
[2019-09-01 06:24] LABS: CREATINE KINASE 645 U/L (26-308)
[2019-09-01 06:37] LABS: BILIRUBIN,DIRECT 1.1 MG/DL (0.0-0.3)
--- NOTE | 2019-09-01 07:37 | NUR ---
HAND-OFF: Report given to KEHINDE Bradshaw. endorsed plan of care.
[2019-09-01] MEDS: Heparin 5000 units/ml inj SUBQ SCH ×2 (09:00→20:13)
[2019-09-01] MEDS: Metoprolol Tartrate 50mg tab GT SCH ×2 (09:00→20:14)
--- NOTE | 2019-09-01 09:00 | NUR ---
NURSE NOTES: Levophed decreased to 8mcg/min due to BP at 132/50 patient tube feeding remains at 10mcg/min. PICC line remains patent with both lumens having blood return.
[2019-09-01] MEDS: Amantadine 100mg cap GT SCH (09:06)
[2019-09-01] MEDS: Ascorbic Acid 500mg tab GT SCH (09:06)
[2019-09-01] MEDS: Pantoprazole Inj IVP SCH (09:07)
[2019-09-01] MEDS: Vancomycin oral 125mg/2.5ml ORAL SCH ×4 (09:07→20:13)
--- NOTE | 2019-09-01 09:20 | Pulmonology Progress Note ---
Subjective ROS Limited/Unobtainable: Yes Constitutional: Denies: fever Gastrointestinal/Abdominal: Reports: diarrhea Allergies: Coded Allergies: No Known Allergies (Unverified , 08/07/19) Subjective remains ill in ICU hypotensive renal function poor vitals noted family aware Objective Last 24 Hour Vital Signs Date Time Temp Pulse Resp B/P (MAP) Pulse Ox O2 Delivery O2 Flow Rate FiO2 09/01/19 09:00 99 132/50 09/01/19 08:00 90 09/01/19 08:00 80 09/01/19 08:00 100.1 96 26 137/47 (77) 99 09/01/19 07:29 84 32 80 09/01/19 07:00 101 16 120/44 (69) 100 09/01/19 07:00 129/55 09/01/19 06:00 100.4 89 26 126/46 (72) 100 09/01/19 06:00 117/41 09/01/19 05:00 117/48 09/01/19 05:00 105 25 117/48 (71) 99 09/01/19 04:00 Mechanical Ventilator 80.0 09/01/19 04:00 100.7 86 25 125/46 (72) 100 09/01/19 04:00 130/62 09/01/19 04:00 80 09/01/19 04:00 94 09/01/19 03:00 139/58 09/01/19 03:00 88 42 139/58 (85) 100 09/01/19 02:58 87 34 80 09/01/19 02:11 100.7 09/01/19 02:00 82 28 117/53 (74) 100 09/01/19 02:00 117/53 09/01/19 01:00 82 27 109/55 (73) 100 09/01/19 01:00 109/55 09/01/19 00:52 102/52 09/01/19 00:00 82 09/01/19 00:00 80 09/01/19 00:00 101.0 83 23 111/51 (71) 100 09/01/19 00:00 111/46 09/01/19 00:00 Mechanical Ventilator 80.0 08/31/19 23:00 82 27 108/42 (64) 100 08/31/19 22:59 84 35 80 08/31/19 22:00 86 23 103/49 (67) 100 08/31/19 22:00 101/51 08/31/19 21:45 93 27 123/61 (81) 100 08/31/19 21:25 91 124/56 08/31/19 21:00 Mechanical Ventilator 80.0 08/31/19 21:00 103/37 08/31/19 21:00 93 26 103/37 (59) 100 08/31/19 20:00 93 08/31/19 20:00 100.6 90 25 108/43 (64) 100 08/31/19 20:00 108/43 08/31/19 20:00 80 08/31/19 19:10 104 31 80 08/31/19 19:00 89 31 123/52 (75) 100 08/31/19 19:00 123/52 08/31/19 18:54 117/51 08/31/19 18:30 106 23 117/51 (73) 100 08/31/19 18:00 120/52 08/31/19 18:00 84 33 120/52 (74) 100 08/31/19 17:30 81 31 114/44 (67) 100 08/31/19 17:00 81 31 110/40 (63) 100 08/31/19 17:00 110/40 08/31/19 16:30 85 27 111/42 (65) 100 08/31/19 16:00 99.0 83 28 109/45 (66) 100 08/31/19 16:00 Mechanical Ventilator 80.0 08/31/19 16:00 80 08/31/19 16:00 109/45 08/31/19 15:30 98 27 87/43 (58) 100 08/31/19 15:29 114 08/31/19 15:21 89 35 80 08/31/19 15:00 92 24 90/47 (61) 100 08/31/19 15:00 90/47 08/31/19 14:30 93 21 90/43 (59) 100 08/31/19 14:00 104/43 08/31/19 14:00 88 20 104/43 (63) 100 08/31/19 13:30 104 22 108/46 (66) 100 08/31/19 13:15 78 23 107/49 (68) 100 08/31/19 13:03 105 23 115/47 (69) 100 08/31/19 13:00 80 27 115/47 (69) 100 08/31/19 13:00 115/74 08/31/19 12:45 87 23 108/46 (66) 100 08/31/19 12:30 79 21 118/52 (74) 100 08/31/19 12:01 82 22 103/51 (68) 100 08/31/19 12:01 83 08/31/19 12:00 106/51 08/31/19 12:00 80 08/31/19 12:00 99.3 82 24 106/51 (69) 100 08/31/19 12:00 Mechanical Ventilator 100.0 08/31/19 11:30 81 24 106/51 (69) 100 08/31/19 11:30 83 24 98/55 (69) 100 08/31/19 11:00 99/46 08/31/19 11:00 85 24 99/46 (63) 100 08/31/19 10:45 89 26 100/47 (64) 100 08/31/19 10:37 107 27 80 08/31/19 10:30 108 27 107/45 (65) 100 08/31/19 10:15 108 30 103/45 (64) 100 08/31/19 10:00 90 30 108/42 (64) 100 08/31/19 10:00 108/42 08/31/19 09:45 109 28 108/38 (61) 100 08/31/19 09:30 109 28 103/42 (62) 100 Intake and Output 08/31/19 09/01/19 19:00 07:00 Intake Total 1832.5 ml 1482.30 ml Output Total 100 ml 240 ml Balance 1732.5 ml 1242.30 ml IV Total 1662.5 ml 1302.30 ml Tube Feeding 60 ml 120 ml Other 110 ml 60 ml Output Urine Total 80 ml 40 ml Stool Total 20 ml 200 ml Objective WDWN trach poorly responsive reduced breath sounds bilaterally without rhonchi or wheeze [id number] tachy without MRG NABS nontender no CCE reduced LOC Microbiology Date/Time Source Procedure Growth Status 08/30/19 14:20 Blood Blood Culture - Preliminary Gram Negative Bacillus 1 Gram Negative Bacillus 2 Resulted 08/30/19 14:15 Sputum Gram Stain - Final Resulted 08/30/19 14:15 Sputum Culture - Preliminary Gram Negative Bacillus 1 Gram Negative Bacillus 2 Resulted 08/31/19 04:00 Urine,Clean Catch Urine Culture - Preliminary Gram Negative Alfonso Resulted Laboratory Tests 08/31/19 11:45: Lactic Acid Level 3.00H, Troponin I 13.908H 08/31/19 20:00: Lactic Acid Level 2.70H, Troponin I 12.742H 09/01/19 03:20: Lactic Acid Level 2.40H, Troponin I 12.194H, White Blood Count 17.9H, Red Blood Count 3.15L, Hemoglobin 9.8L, Hematocrit 31.4L, Mean Corpuscular Volume 100H, Mean Corpuscular Hemoglobin 31.0, Mean Corpuscular Hemoglobin Concent 31.1L, Red Cell Distribution Width 16.1H, Platelet Count 105L, Mean Platelet Volume 9.9 , Neutrophils (%) (Auto) , Lymphocytes (%) (Auto) , Monocytes (%) (Auto) , Eosinophils (%) (Auto) , Basophils (%) (Auto) , Differential Total Cells Counted 100, Neutrophils % (Manual) 93H, Lymphocytes % (Manual) 4L, Monocytes % (Manual) 3, Eosinophils % (Manual) 0, Basophils % (Manual) 0, Band Neutrophils 0 , Platelet Estimate DecreasedL, Platelet Morphology Normal, Hypochromasia 1+, Anisocytosis 1+, Sodium Level 133L, Potassium Level 3.8, Chloride Level 101, Carbon Dioxide Level 15L, Anion Gap 17H, Blood Urea Nitrogen 70H, Creatinine 5.4H, Estimat Glomerular Filtration Rate 12.6, Glucose Level 114H, Calcium Level 7.0L, Total Bilirubin 1.4H, Direct Bilirubin 1.1H, Aspartate Amino Transf (AST/SGOT) 138H, Alanine Aminotransferase (ALT/SGPT) 173H, Alkaline Phosphatase 139H, Total Creatine Kinase 645H, Total Protein 5.4L, Albumin 1.0L, Globulin 4.4 , Albumin/Globulin Ratio 0.2L Current Medications Medications (Trade) Dose Ordered Sig/Nury Route PRN Reason Start Time Stop Time Status Last Admin Dose Admin Acetaminophen (Tylenol) 325 mg Q6H PRN RECTAL Temp >100.5 08/28/19 03:45 09/07/19 21:44 Acetaminophen (Tylenol) 650 mg Q4H PRN GT Mild Pain (Pain Scale 1-3) 08/28/19 06:45 09/07/19 10:44 08/31/19 08:11 Acetaminophen (Tylenol) 650 mg Q4H PRN GT Temp >100.5 08/28/19 06:45 09/07/19 10:44 09/01/19 01:41 Amantadine HCl (Symmetrel) 100 mg DAILY GT 08/28/19 09:00 09/08/19 08:59 09/01/19 09:06 Ascorbic Acid (Vitamin C) 250 mg DAILY GT 08/28/19 09:00 09/08/19 08:59 09/01/19 09:06 Cefepime HCl 2 gm/ Dextrose 55 ml @ 110 mls/hr Q24H IVPB 08/30/19 13:00 09/06/19 12:59 08/31/19 13:36 Chlorhexidine Gluconate (Milagros-Hex 2%) 1 applic DAILY@2000 TOPIC 08/28/19 20:00 11/26/19 19:59 08/31/19 20:00 Dextrose/Sodium Chloride 1,000 ml @ 50 mls/hr Q20H IV 08/29/19 08:00 09/28/19 19:59 08/31/19 21:05 Folic Acid (Folate) 1 mg DAILY GT 08/28/19 09:00 09/07/19 14:29 09/01/19 09:08 Heparin Sodium (Porcine) (Heparin 5000 units/ml) 5,000 units EVERY 12 HOURS SUBQ 08/28/19 21:00 10/12/19 20:59 08/29/19 09:09 Hydralazine HCl (Apresoline) 10 mg Q6H PRN GT SBP above 160 08/28/19 04:00 11/26/19 03:59 Hydralazine HCl (Apresoline) 10 mg Q6H PRN IV SBP> 160 08/28/19 03:45 11/06/19 21:44 08/28/19 15:23 Lorazepam (Ativan 2mg/ml 1ml) 1 mg Q2H PRN IV For Anxiety 08/28/19 18:20 09/04/19 18:19 08/28/19 18:30 Metoprolol Tartrate (Lopressor) 50 mg Q12HR GT 08/28/19 09:00 11/24/19 08:59 08/31/19 21:25 Metronidazole 100 ml @ 100 mls/hr Q8HR IVPB 08/28/19 22:45 09/04/19 22:44 09/01/19 05:34 Multivitamins (Multivitamins) 1 tab DAILY GT 08/28/19 09:00 09/08/19 08:59 09/01/19 09:06 Norepinephrine Bitartrate 8 mg/ Dextrose 508 ml @ 0 mls/hr Q24H IV 09/01/19 00:30 10/01/19 00:29 09/01/19 00:52 Pantoprazole (Protonix) 40 mg DAILY IVP 08/29/19 09:00 09/08/19 22:59 09/01/19 09:07 Vancomycin HCl (Firvanq) 125 mg FOUR TIMES A DAY ORAL 08/28/19 13:00 09/04/19 12:59 09/01/19 09:07 Assessment/Plan Assessment/Plan anemia SVT respiratory failure trach chronic encephalopathy GT site infection with replacement low K severe protein calorie malnutrition hypotension s/p CPA electrolyte imbalance acute OR elevated troponin PLAN pressors as needed close cardiology follow up vent support feeds per gi - GT care wound care monitor HH renal follow up ID follow up critical at present ICU care needed critical and will update family impression, plan, and exam edited and reviewed in detail care discussed with Isaiah Villatoro MD Sep 01, 2019 09:20
--- NOTE | 2019-09-01 10:22 | NUR ---
CASE MANAGEMENT:REVIEW 09/01/19 SI: AMI. SEPSIS. PNA. PAFIB 100.7 96 26 137/47 99% ON VENT SUPPORT W/80% FIO2 WBC+17.9 H/H-9.8/31.4 PLT-105 BUN+70 CR+5.4 TROPONIN(+) 12.19 IS: IV CEFEPIME Q24 IV FLAGYL Q8HRS IV PROTONIX QD IVF@50/HR HEPARIN SQ Q12 LOPRESSOR GT Q12 : ICU STATUS DCP: FROM [facility]
--- NOTE | 2019-09-01 11:00 | NUR ---
NURSE NOTES: Levophed decreased to 6mcg/min with BP of 118/43, patient remains running at 10ml/hr.
--- NOTE | 2019-09-01 11:05 | NUR ---
*-* INSURANCE *-* UPDATED CLINICALS HAVE BEEN FAXED TO: [facility] CM:RYANNE F: [phone] REF#[id number]
--- NOTE | 2019-09-01 11:09 | Infectious Diseases Prog Note ---
"Assessment/Plan Assessment/Plan antibiotics : GT vancomycin, flagyl, cefepime A 1. gram negative pneumonia COVID negative x 2 2. klebsiella | pseudomonas | VRE Gt site cellulitis 3. respiratory failure 4. leucocytosis 5. gram negative UTI 6. C.diff colitis 7. gram negative sepsis P 1. continue GT vancomycin, iv flagyl 2. continue cefepime 3. will follow up cultures Subjective ROS Limited/Unobtainable: Yes Allergies: Coded Allergies: No Known Allergies (Unverified , 08/07/19) Objective Last 24 Hour Vital Signs Date Time Temp Pulse Resp B/P (MAP) Pulse Ox O2 Delivery O2 Flow Rate FiO2 09/01/19 09:00 99 132/50 09/01/19 09:00 95 31 143/68 (93) 99 09/01/19 08:00 90 09/01/19 08:00 80 09/01/19 08:00 100.1 96 26 137/47 (77) 99 09/01/19 07:29 84 32 80 09/01/19 07:00 101 16 120/44 (69) 100 09/01/19 07:00 129/55 09/01/19 06:00 100.4 89 26 126/46 (72) 100 09/01/19 06:00 117/41 09/01/19 05:00 117/48 09/01/19 05:00 105 25 117/48 (71) 99 09/01/19 04:00 Mechanical Ventilator 80.0 09/01/19 04:00 100.7 86 25 125/46 (72) 100 09/01/19 04:00 130/62 09/01/19 04:00 80 09/01/19 04:00 94 09/01/19 03:00 139/58 09/01/19 03:00 88 42 139/58 (85) 100 09/01/19 02:58 87 34 80 09/01/19 02:11 100.7 09/01/19 02:00 82 28 117/53 (74) 100 09/01/19 02:00 117/53 09/01/19 01:00 82 27 109/55 (73) 100 09/01/19 01:00 109/55 09/01/19 00:52 102/52 09/01/19 00:00 82 09/01/19 00:00 80 09/01/19 00:00 101.0 83 23 111/51 (71) 100 09/01/19 00:00 111/46 09/01/19 00:00 Mechanical Ventilator 80.0 08/31/19 23:00 82 27 108/42 (64) 100 08/31/19 22:59 84 35 80 08/31/19 22:00 86 23 103/49 (67) 100 08/31/19 22:00 101/51 08/31/19 21:45 93 27 123/61 (81) 100 08/31/19 21:25 91 124/56 08/31/19 21:00 Mechanical Ventilator 80.0 08/31/19 21:00 103/37 08/31/19 21:00 93 26 103/37 (59) 100 08/31/19 20:00 93 08/31/19 20:00 100.6 90 25 108/43 (64) 100 08/31/19 20:00 108/43 08/31/19 20:00 80 08/31/19 19:10 104 31 80 08/31/19 19:00 89 31 123/52 (75) 100 08/31/19 19:00 123/52 08/31/19 18:54 117/51 08/31/19 18:30 106 23 117/51 (73) 100 08/31/19 18:00 120/52 08/31/19 18:00 84 33 120/52 (74) 100 08/31/19 17:30 81 31 114/44 (67) 100 08/31/19 17:00 81 31 110/40 (63) 100 08/31/19 17:00 110/40 08/31/19 16:30 85 27 111/42 (65) 100 08/31/19 16:00 99.0 83 28 109/45 (66) 100 08/31/19 16:00 Mechanical Ventilator 80.0 08/31/19 16:00 80 08/31/19 16:00 109/45 08/31/19 15:30 98 27 87/43 (58) 100 08/31/19 15:29 114 08/31/19 15:21 89 35 80 08/31/19 15:00 92 24 90/47 (61) 100 08/31/19 15:00 90/47 08/31/19 14:30 93 21 90/43 (59) 100 08/31/19 14:00 104/43 08/31/19 14:00 88 20 104/43 (63) 100 08/31/19 13:30 104 22 108/46 (66) 100 08/31/19 13:15 78 23 107/49 (68) 100 08/31/19 13:03 105 23 115/47 (69) 100 08/31/19 13:00 80 27 115/47 (69) 100 08/31/19 13:00 115/74 08/31/19 12:45 87 23 108/46 (66) 100 08/31/19 12:30 79 21 118/52 (74) 100 08/31/19 12:01 82 22 103/51 (68) 100 08/31/19 12:01 83 08/31/19 12:00 106/51 08/31/19 12:00 80 08/31/19 12:00 99.3 82 24 106/51 (69) 100 08/31/19 12:00 Mechanical Ventilator 100.0 08/31/19 11:30 81 24 106/51 (69) 100 08/31/19 11:30 83 24 98/55 (69) 100 Height (Feet): 5 Height (Inches): 10.00 Weight (Pounds): 234 HEENT: status post trach Respiratory/Chest: lungs clear Cardiovascular: normal rate, regular rhythm, no gallop/murmur Abdomen: soft, non tender, other - GT Extremities: no edema, other - left arm PICC Microbiology Date/Time Source Procedure Growth Status 08/30/19 14:20 Blood Blood Culture - Preliminary Gram Negative Bacillus 1 Gram Negative Bacillus 2 Resulted 08/30/19 14:15 Sputum Gram Stain - Final Resulted 08/30/19 14:15 Sputum Culture - Preliminary Gram Negative Bacillus 1 Gram Negative Bacillus 2 Resulted 08/31/19 04:00 Urine,Clean Catch Urine Culture - Preliminary Gram Negative Alfonso Resulted Laboratory Tests Test 08/31/19 11:45 08/31/19 20:00 09/01/19 03:20 Lactic Acid Level 3.00 mmol/L (0.4-2.0) H 2.70 mmol/L (0.4-2.0) H 2.40 mmol/L (0.4-2.0) H Troponin I 13.908 ng/mL (0.000-0.056) 12.742 ng/mL (0.000-0.056) 12.194 ng/mL (0.000-0.056) White Blood Count 17.9 K/UL (4.8-10.8) H Red Blood Count 3.15 M/UL (4.70-6.10) L Hemoglobin 9.8 G/DL (14.2-18.0) L Hematocrit 31.4 % (42.0-52.0) L Mean Corpuscular Volume 100 FL (80-99) H Mean Corpuscular Hemoglobin 31.0 PG (27.0-31.0) Mean Corpuscular Hemoglobin Concent 31.1 G/DL (32.0-36.0) L Red Cell Distribution Width 16.1 % (11.6-14.8) H Platelet Count 105 K/UL (150-450) L Mean Platelet Volume 9.9 FL (6.5-10.1) Neutrophils (%) (Auto) % (45.0-75.0) Lymphocytes (%) (Auto) % (20.0-45.0) Monocytes (%) (Auto) % (1.0-10.0) Eosinophils (%) (Auto) % (0.0-3.0) Basophils (%) (Auto) % (0.0-2.0) Differential Total Cells Counted 100 Neutrophils % (Manual) 93 % (45-75) H Lymphocytes % (Manual) 4 % (20-45) L Monocytes % (Manual) 3 % (1-10) Eosinophils % (Manual) 0 % (0-3) Basophils % (Manual) 0 % (0-2) Band Neutrophils 0 % (0-8) Platelet Estimate Decreased L Platelet Morphology Normal Hypochromasia 1+ Anisocytosis 1+ Sodium Level 133 MMOL/L (136-145) L Potassium Level 3.8 MMOL/L (3.5-5.1) Chloride Level 101 MMOL/L (98-107) Carbon Dioxide Level 15 MMOL/L (21-32) L Anion Gap 17 mmol/L (5-15) H Blood Urea Nitrogen 70 mg/dL (7-18) H Creatinine 5.4 MG/DL (0.55-1.30) H Estimat Glomerular Filtration Rate 12.6 mL/min (>60) Glucose Level 114 MG/DL (74-106) H Calcium Level 7.0 MG/DL (8.5-10.1) L Total Bilirubin 1.4 MG/DL (0.2-1.0) H Direct Bilirubin 1.1 MG/DL (0.0-0.3) H Aspartate Amino Transf (AST/SGOT) 138 U/L (15-37) H Alanine Aminotransferase (ALT/SGPT) 173 U/L (12-78) H Alkaline Phosphatase 139 U/L (46-116) H Total Creatine Kinase 645 U/L (26-308) H Total Protein 5.4 G/DL (6.4-8.2) L Albumin 1.0 G/DL (3.4-5.0) L Globulin 4.4 g/dL Albumin/Globulin Ratio 0.2 (1.0-2.7) L Current Medications Medications (Trade) Dose Ordered Sig/Nury Route PRN Reason Start Time Stop Time Status Last Admin Dose Admin Acetaminophen (Tylenol) 325 mg Q6H PRN RECTAL Temp >100.5 08/28/19 03:45 09/07/19 21:44 Acetaminophen (Tylenol) 650 mg Q4H PRN GT Mild Pain (Pain Scale 1-3) 08/28/19 06:45 09/07/19 10:44 08/31/19 08:11 Acetaminophen (Tylenol) 650 mg Q4H PRN GT Temp >100.5 08/28/19 06:45 09/07/19 10:44 09/01/19 01:41 Amantadine HCl (Symmetrel) 100 mg DAILY GT 08/28/19 09:00 09/08/19 08:59 09/01/19 09:06 Ascorbic Acid (Vitamin C) 250 mg DAILY GT 08/28/19 09:00 09/08/19 08:59 09/01/19 09:06 Cefepime HCl 2 gm/ Dextrose 55 ml @ 110 mls/hr Q24H IVPB 08/30/19 13:00 09/06/19 12:59 08/31/19 13:36 Chlorhexidine Gluconate (Milagros-Hex 2%) 1 applic DAILY@2000 TOPIC 08/28/19 20:00 11/26/19 19:59 08/31/19 20:00 Dextrose/Sodium Chloride 1,000 ml @ 50 mls/hr Q20H IV 08/29/19 08:00 09/28/19 19:59 08/31/19 21:05 Folic Acid (Folate) 1 mg DAILY GT 08/28/19 09:00 09/07/19 14:29 09/01/19 09:08 Heparin Sodium (Porcine) (Heparin 5000 units/ml) 5,000 units EVERY 12 HOURS SUBQ 08/28/19 21:00 10/12/19 20:59 08/29/19 09:09 Hydralazine HCl (Apresoline) 10 mg Q6H PRN GT SBP above 160 08/28/19 04:00 11/26/19 03:59 Hydralazine HCl (Apresoline) 10 mg Q6H PRN IV SBP> 160 08/28/19 03:45 11/06/19 21:44 08/28/19 15:23 Lorazepam (Ativan 2mg/ml 1ml) 1 mg Q2H PRN IV For Anxiety 08/28/19 18:20 09/04/19 18:19 08/28/19 18:30 Metoprolol Tartrate (Lopressor) 50 mg Q12HR GT 08/28/19 09:00 11/24/19 08:59 08/31/19 21:25 Metronidazole 100 ml @ 100 mls/hr Q8HR IVPB 08/28/19 22:45 09/04/19 22:44 09/01/19 05:34 Multivitamins (Multivitamins) 1 tab DAILY GT 08/28/19 09:00 09/08/19 08:59 09/01/19 09:06 Norepinephrine Bitartrate 8 mg/ Dextrose 508 ml @ 0 mls/hr Q24H IV 09/01/19 00:30 10/01/19 00:29 09/01/19 00:52 Pantoprazole (Protonix) 40 mg DAILY IVP 08/29/19 09:00 09/08/19 22:59 09/01/19 09:07 Vancomycin HCl (Firvanq) 125 mg FOUR TIMES A DAY ORAL 08/28/19 13:00 09/04/19 12:59 09/01/19 09:07 Jude Ochoa MD Sep 01, 2019 11:09"
--- NOTE | 2019-09-01 13:00 | NUR ---
NURSE NOTES: Levophed decreased to 4mcg/min with BP of 130/55 patient tube feeding remains at 10ml/hr.
[2019-09-01] MEDS: Cefepime HCl 2 GM in D5W 55 ML IVPB SCH (14:12)
--- NOTE | 2019-09-01 14:12 | Surgery Progress Note ---
Surgery Progress Note Subjective Additional Comments leukocytosis anemia lactic acidosis ill appearing Objective Last 24 Hour Vital Signs Date Time Temp Pulse Resp B/P (MAP) Pulse Ox O2 Delivery O2 Flow Rate FiO2 09/01/19 13:00 130/55 09/01/19 13:00 110 40 130/55 (80) 99 09/01/19 12:00 60 09/01/19 12:00 121/50 09/01/19 12:00 100.2 99 46 121/50 (73) 99 09/01/19 12:00 Mechanical Ventilator 09/01/19 11:43 108 27 60 09/01/19 11:00 118/43 09/01/19 11:00 109 32 118/43 (68) 99 09/01/19 10:00 99 43 114/52 (72) 99 09/01/19 10:00 114/52 09/01/19 09:00 132/50 09/01/19 09:00 99 132/50 09/01/19 09:00 95 31 143/68 (93) 99 09/01/19 08:00 90 09/01/19 08:00 137/47 09/01/19 08:00 Mechanical Ventilator 09/01/19 08:00 80 09/01/19 08:00 100.1 96 26 137/47 (77) 99 09/01/19 07:29 84 32 80 09/01/19 07:00 101 16 120/44 (69) 100 09/01/19 07:00 129/55 09/01/19 06:00 100.4 89 26 126/46 (72) 100 09/01/19 06:00 117/41 09/01/19 05:00 117/48 09/01/19 05:00 105 25 117/48 (71) 99 09/01/19 04:00 Mechanical Ventilator 80.0 09/01/19 04:00 100.7 86 25 125/46 (72) 100 09/01/19 04:00 130/62 09/01/19 04:00 80 09/01/19 04:00 94 09/01/19 03:00 139/58 09/01/19 03:00 88 42 139/58 (85) 100 09/01/19 02:58 87 34 80 09/01/19 02:11 100.7 09/01/19 02:00 82 28 117/53 (74) 100 09/01/19 02:00 117/53 09/01/19 01:00 82 27 109/55 (73) 100 09/01/19 01:00 109/55 09/01/19 00:52 102/52 09/01/19 00:00 82 09/01/19 00:00 80 09/01/19 00:00 101.0 83 23 111/51 (71) 100 09/01/19 00:00 111/46 09/01/19 00:00 Mechanical Ventilator 80.0 08/31/19 23:00 82 27 108/42 (64) 100 08/31/19 22:59 84 35 80 08/31/19 22:00 86 23 103/49 (67) 100 08/31/19 22:00 101/51 08/31/19 21:45 93 27 123/61 (81) 100 08/31/19 21:25 91 124/56 08/31/19 21:00 Mechanical Ventilator 80.0 08/31/19 21:00 103/37 08/31/19 21:00 93 26 103/37 (59) 100 08/31/19 20:00 93 08/31/19 20:00 100.6 90 25 108/43 (64) 100 08/31/19 20:00 108/43 08/31/19 20:00 80 08/31/19 19:10 104 31 80 08/31/19 19:00 89 31 123/52 (75) 100 08/31/19 19:00 123/52 08/31/19 18:54 117/51 08/31/19 18:30 106 23 117/51 (73) 100 08/31/19 18:00 120/52 08/31/19 18:00 84 33 120/52 (74) 100 08/31/19 17:30 81 31 114/44 (67) 100 08/31/19 17:00 81 31 110/40 (63) 100 08/31/19 17:00 110/40 08/31/19 16:30 85 27 111/42 (65) 100 08/31/19 16:00 99.0 83 28 109/45 (66) 100 08/31/19 16:00 Mechanical Ventilator 80.0 08/31/19 16:00 80 7/2/20 16:00 109/45 08/31/19 15:30 98 27 87/43 (58) 100 08/31/19 15:29 114 08/31/19 15:21 89 35 80 08/31/19 15:00 92 24 90/47 (61) 100 08/31/19 15:00 90/47 08/31/19 14:30 93 21 90/43 (59) 100 I&O Intake and Output 08/31/19 09/01/19 19:00 07:00 Intake Total 1832.5 ml 1482.30 ml Output Total 100 ml 240 ml Balance 1732.5 ml 1242.30 ml IV Total 1662.5 ml 1302.30 ml Tube Feeding 60 ml 120 ml Other 110 ml 60 ml Output Urine Total 80 ml 40 ml Stool Total 20 ml 200 ml Dressing: other Wound: other Drains: other Cardiovascular: RSR Respiratory: decreased breath sounds Abdomen: soft, non-tender, present bowel sounds Extremities: edema, no cyanosis Laboratory Tests Test 08/31/19 20:00 09/01/19 03:20 Lactic Acid Level 2.70 mmol/L (0.4-2.0) H 2.40 mmol/L (0.4-2.0) H Troponin I 12.742 ng/mL (0.000-0.056) 12.194 ng/mL (0.000-0.056) White Blood Count 17.9 K/UL (4.8-10.8) H Red Blood Count 3.15 M/UL (4.70-6.10) L Hemoglobin 9.8 G/DL (14.2-18.0) L Hematocrit 31.4 % (42.0-52.0) L Mean Corpuscular Volume 100 FL (80-99) H Mean Corpuscular Hemoglobin 31.0 PG (27.0-31.0) Mean Corpuscular Hemoglobin Concent 31.1 G/DL (32.0-36.0) L Red Cell Distribution Width 16.1 % (11.6-14.8) H Platelet Count 105 K/UL (150-450) L Mean Platelet Volume 9.9 FL (6.5-10.1) Neutrophils (%) (Auto) % (45.0-75.0) Lymphocytes (%) (Auto) % (20.0-45.0) Monocytes (%) (Auto) % (1.0-10.0) Eosinophils (%) (Auto) % (0.0-3.0) Basophils (%) (Auto) % (0.0-2.0) Differential Total Cells Counted 100 Neutrophils % (Manual) 93 % (45-75) H Lymphocytes % (Manual) 4 % (20-45) L Monocytes % (Manual) 3 % (1-10) Eosinophils % (Manual) 0 % (0-3) Basophils % (Manual) 0 % (0-2) Band Neutrophils 0 % (0-8) Platelet Estimate Decreased L Platelet Morphology Normal Hypochromasia 1+ Anisocytosis 1+ Sodium Level 133 MMOL/L (136-145) L Potassium Level 3.8 MMOL/L (3.5-5.1) Chloride Level 101 MMOL/L (98-107) Carbon Dioxide Level 15 MMOL/L (21-32) L Anion Gap 17 mmol/L (5-15) H Blood Urea Nitrogen 70 mg/dL (7-18) H Creatinine 5.4 MG/DL (0.55-1.30) H Estimat Glomerular Filtration Rate 12.6 mL/min (>60) Glucose Level 114 MG/DL (74-106) H Calcium Level 7.0 MG/DL (8.5-10.1) L Total Bilirubin 1.4 MG/DL (0.2-1.0) H Direct Bilirubin 1.1 MG/DL (0.0-0.3) H Aspartate Amino Transf (AST/SGOT) 138 U/L (15-37) H Alanine Aminotransferase (ALT/SGPT) 173 U/L (12-78) H Alkaline Phosphatase 139 U/L (46-116) H Total Creatine Kinase 645 U/L (26-308) H Total Protein 5.4 G/DL (6.4-8.2) L Albumin 1.0 G/DL (3.4-5.0) L Globulin 4.4 g/dL Albumin/Globulin Ratio 0.2 (1.0-2.7) L Plan Problems: (1) Anemia Assessment & Plan: 08/22 acute brisk pulsatile active bleeding from the G-tube site. Significant for blood identified on the dressings and in the patient's bed therefore immediate hemostasis indicated and recommended. At the bedside patient was given pain medication morphine IV and the G-tube site incision was extended and postop bleeding identified from around the level of the deep subcutaneous tissue. 2 [id number] silk sutures were placed and hemostasis was obtained. The skin incision was reapproximated using 0 silk interrupted sutures. Patient taught procedure well. Hemostasis noted. Labs ordered will monitor renal improved a fib rvr in ICU for monitoring (2) Unstageable decubitus ulcer Assessment & Plan: Pt presented on admission with multiple Pressure Injuries. Pt has a Tracheostomy and no areas of skin concerns noted under tracheal collar. Unstageable Sacral Pressure Injury(L)9.5cm x (W)10cm. Base of wound is 75% mixed slough and eschar,25% carolynn, Edges adherent with surrounding purple and maroon indurated borders. No odor or exudate noted. DTPI L Heel (L)3.7cm x (W)4.5cm. Base of wound is maroon and indurated with surrounding non-Blanching erythema. Callused skin periwound. Reabsorbing DTPI [place] L Foot (L)3.3cm x (W)2.5cm. Base of Pressure Injury is maroon but dry. No erythema or fluctuance periwound. DTPI Lateral L 1st metatarsal(L)1.5cm x (W)2cm. Base of wound is maroon and indurated.Callused skin periwound. DTPI Lateral R Heel (L)4.4cm x (W)6cm. Base of wound is indurated ,purple with surrounding maroon and fluctuant borders.Callusing periwound. DTPI R Hallux (L)1.8cm x (W)1.9cm. Base of wound is indurated and purple. Callusing periwound. DTPI Lateral R 1st metatarsal(L)2cm x (W)2.7cm. Base of wound is indurated and maroon. Callusing periwound. Reabsorbing Sacral DTPI that is partially opened at sacrum and second opening at L sacrum. Base of wound is dry -brown without induration or fluctuance. Wound at sacrococcygeal area is full thickness with Beefy red granulation, surrounding pink epithelial borders (L)3.5cm x (W)5cm. Periwound is dark brown.Full thickness pressure L Sacrum is 95% pink- moist,5% slough centrally. No exudate noted. Edges are macerated. Surrounding dark brown borders without induration. Unstageable Pressure injury L heel. Base of wound is 100% necrotic (L)3.5cm x (W )3.5cm.periwound is fluctuant but blanchable. Reabsorbed DTPI Dorsal L foot. dry brown discoloration without induration / fluctuance noted. Reabsorbed DTPI Lateral L 1st metatarsal. Dry callused skin without erythema, induration or fluctuance. Thick callus without erythema L Hallux. Unstageable Pressure injury R Heel (L)3.5cm x (W)6.2cm. Base of wound is 100% necrotic -dry. Edges adherent to base of wound. Periwound is blanchable. Reabsorbed DTPI R Hallux. Dry callused skin without erythema noted. Thick callused skin without erythema noted to lateral R 1st metatarsal. Wound prevention protocols continued as care-planned . Pt positioned with pillows and repositioned as per tolerance and within protocols. Tx.Plan: Cleanse Sacral wound with Saline. Apply TheraHoney. Apply Moisture Barrier Paste periwound. Cover with Optifoam drsg. Change every 3 days and prn. Apply Cavilon Skin Barrier to wounds L L Heel , L st metatarsal,Dorsal L Foot. Cover each Site with Optifoam drsg. Change every 7 days and prn. Apply Cavilon Skin Barrier to R Heel, R Hallux, R 1st metatarsal. Cover each site with Optifoam drsg. Change every 7 days and prn. APM/KHOA Mattress. Reposition at least every 2hours or as tolerated. Off-Load Heels with Pillows. (3) Leaking PEG tube Assessment & Plan: prior peg removed plan new placement soon will monitor site drainage noted packing placed Minimal drainage from prior G-tube site discussed with nursing about packing and dressings will continue current care plan plan for PEG tube once improved s/p peg 08/21 tf worsening hold tf g tube to suction LIS abd distention likely ileus possible asp pna cont abd cont support wean pressors Lung bases: Atelectasis at the lung bases. Liver: Unremarkable. No mass. Gallbladder and bile ducts: Unremarkable. No calcified stones. No ductal dilation. Pancreas: Unremarkable. No mass. No ductal dilation. Spleen: Unremarkable. No splenomegaly. Adrenals: Unremarkable. No mass. Kidneys and ureters: Nonobstructing stone in the lower pole of the right kidney. Stomach and bowel: Tract from a recent percutaneous gastrostomy tube which is healing in the subcutaneous fat. Surrounding inflammatory changes but no abscess. Severe colonic diverticulosis within the sigmoid colon with mural hypertrophy however no surrounding inflammatory changes to suggest acute diverticulitis. Underlying malignancy not excluded. No obstruction. Intraperitoneal space: Unremarkable. No free air. No significant fluid collection. Bones/joints: No acute fracture. No dislocation. Soft tissues: Fat stranding in the ventral abdomen. Vasculature: Unremarkable. No abdominal aortic aneurysm. Lymph nodes: Unremarkable. No enlarged lymph nodes. Tubes, lines and devices: Thakkar catheter within the bladder. IMPRESSION: 1. Severe colonic diverticulosis within the sigmoid colon with mural hypertrophy however no surrounding inflammatory changes to suggest acute diverticulitis. Underlying malignancy not excluded. 2. Tract from a recent percutaneous gastrostomy tube which is healing in the subcutaneous fat. Surrounding inflammatory changes but no abscess. (4) Person under investigation for COVID-19 Assessment & Plan: There is a tracheostomy. Calcified granuloma is seen in the right midlung. Granulomatous calcified nodes are seen in the left aortopulmonary window. No definite infiltrates, effusions, congestion. The heart size is upper limits normal. Impression: No definite acute abnormality Evidence of old granulomatous disease (5) Cardiopulmonary arrest Assessment & Plan: worsening family at bedside prognosis guarded Homero Cummings Sep 01, 2019 14:12
[2019-09-01] MEDS: D5 1/2NS 1,000 ML IV SCH (14:13)
--- NOTE | 2019-09-01 14:35 | NUR ---
NURSE NOTES: Dr. Hawk updated at the bedside, Reglan order obtained for 5mg IVP q6hrs to improve GI motility. no further orders given
--- NOTE | 2019-09-01 14:45 | NUR ---
NURSE NOTES: Additional order to have a CT scan of the abodmen given by Dr. Hawk for infections at the G-tube site. no additional orders given
[2019-09-01] MEDS: Metoclopramide 10mg/2ml Inj IVP SCH ×2 (15:02→22:05)
--- NOTE | 2019-09-01 16:11 | General Progress Note ---
Assessment/Plan Assessment/Plan: Assessment - Arterial GT site bleeding --> now with GT site infection - Anemia - see[sos - C difficile - Ileus / abd distention - GT migration - removed --> site healed and closed - OB (+) stools - due to ulcerative gastritis, no colonoscopy per DPOA - s/p Trach - Macrocytic indicies - normal B12 and folate - poor prognosis Recommendations - PPI - transfuse PRN - abx - CT abd / pelvis when feasible - abx per ID - follow exam and labs - supportive care Subjective Allergies: Coded Allergies: No Known Allergies (Unverified , 08/07/19) Subjective Above noted patient seen in ICU d/w RN still with residuals feeds off Objective Last 24 Hour Vital Signs Date Time Temp Pulse Resp B/P (MAP) Pulse Ox O2 Delivery O2 Flow Rate FiO2 09/01/19 15:19 91 30 50 09/01/19 14:30 86 32 113/38 (63) 96 09/01/19 14:14 133/46 09/01/19 14:00 95 30 118/45 (69) 99 09/01/19 13:30 106 31 144/50 (81) 97 09/01/19 13:00 130/55 09/01/19 13:00 110 40 130/55 (80) 99 09/01/19 12:30 106 30 139/59 (85) 99 09/01/19 12:00 60 09/01/19 12:00 121/50 09/01/19 12:00 100.2 99 46 121/50 (73) 99 09/01/19 12:00 Mechanical Ventilator 09/01/19 11:43 108 27 60 09/01/19 11:30 107 35 120/54 (76) 100 09/01/19 11:00 118/43 09/01/19 11:00 109 32 118/43 (68) 99 09/01/19 10:30 96 31 117/43 (67) 100 09/01/19 10:00 99 43 114/52 (72) 99 09/01/19 10:00 114/52 09/01/19 09:30 103 32 136/45 (75) 100 09/01/19 09:00 132/50 09/01/19 09:00 99 132/50 09/01/19 09:00 95 31 143/68 (93) 99 09/01/19 08:30 108 30 148/59 (88) 100 09/01/19 08:00 90 09/01/19 08:00 137/47 09/01/19 08:00 Mechanical Ventilator 09/01/19 08:00 80 09/01/19 08:00 100.1 96 26 137/47 (77) 99 09/01/19 07:30 94 32 153/39 (77) 99 09/01/19 07:29 84 32 80 09/01/19 07:00 101 16 120/44 (69) 100 09/01/19 07:00 129/55 09/01/19 06:00 100.4 89 26 126/46 (72) 100 09/01/19 06:00 117/41 09/01/19 05:00 117/48 09/01/19 05:00 105 25 117/48 (71) 99 09/01/19 04:00 Mechanical Ventilator 80.0 09/01/19 04:00 100.7 86 25 125/46 (72) 100 09/01/19 04:00 130/62 09/01/19 04:00 80 09/01/19 04:00 94 09/01/19 03:00 139/58 09/01/19 03:00 88 42 139/58 (85) 100 09/01/19 02:58 87 34 80 09/01/19 02:11 100.7 09/01/19 02:00 82 28 117/53 (74) 100 09/01/19 02:00 117/53 09/01/19 01:00 82 27 109/55 (73) 100 09/01/19 01:00 109/55 09/01/19 00:52 102/52 09/01/19 00:00 82 09/01/19 00:00 80 09/01/19 00:00 101.0 83 23 111/51 (71) 100 09/01/19 00:00 111/46 09/01/19 00:00 Mechanical Ventilator 80.0 08/31/19 23:00 82 27 108/42 (64) 100 08/31/19 22:59 84 35 80 08/31/19 22:00 86 23 103/49 (67) 100 08/31/19 22:00 101/51 08/31/19 21:45 93 27 123/61 (81) 100 7/2/20 21:25 91 124/56 08/31/19 21:00 Mechanical Ventilator 80.0 08/31/19 21:00 103/37 08/31/19 21:00 93 26 103/37 (59) 100 08/31/19 20:00 93 08/31/19 20:00 100.6 90 25 108/43 (64) 100 08/31/19 20:00 108/43 08/31/19 20:00 80 08/31/19 19:10 104 31 80 08/31/19 19:00 89 31 123/52 (75) 100 08/31/19 19:00 123/52 08/31/19 18:54 117/51 08/31/19 18:30 106 23 117/51 (73) 100 08/31/19 18:00 120/52 08/31/19 18:00 84 33 120/52 (74) 100 08/31/19 17:30 81 31 114/44 (67) 100 08/31/19 17:00 81 31 110/40 (63) 100 08/31/19 17:00 110/40 08/31/19 16:30 85 27 111/42 (65) 100 08/31/19 16:00 99.0 83 28 109/45 (66) 100 08/31/19 16:00 Mechanical Ventilator 80.0 08/31/19 16:00 80 08/31/19 16:00 109/45 Intake and Output 08/31/19 09/01/19 19:00 07:00 Intake Total 1832.5 ml 1482.30 ml Output Total 100 ml 240 ml Balance 1732.5 ml 1242.30 ml IV Total 1662.5 ml 1302.30 ml Tube Feeding 60 ml 120 ml Other 110 ml 60 ml Output Urine Total 80 ml 40 ml Stool Total 20 ml 200 ml Laboratory Tests 08/31/19 20:00: Lactic Acid Level 2.70H, Troponin I 12.742H 09/01/19 03:20: Lactic Acid Level 2.40H, Troponin I 12.194H, White Blood Count 17.9H, Red Blood Count 3.15L, Hemoglobin 9.8L, Hematocrit 31.4L, Mean Corpuscular Volume 100H, Mean Corpuscular Hemoglobin 31.0, Mean Corpuscular Hemoglobin Concent 31.1L, Red Cell Distribution Width 16.1H, Platelet Count 105L, Mean Platelet Volume 9.9 , Neutrophils (%) (Auto) , Lymphocytes (%) (Auto) , Monocytes (%) (Auto) , Eosinophils (%) (Auto) , Basophils (%) (Auto) , Differential Total Cells Counted 100, Neutrophils % (Manual) 93H, Lymphocytes % (Manual) 4L, Monocytes % (Manual) 3, Eosinophils % (Manual) 0, Basophils % (Manual) 0, Band Neutrophils 0 , Platelet Estimate DecreasedL, Platelet Morphology Normal, Hypochromasia 1+, Anisocytosis 1+, Sodium Level 133L, Potassium Level 3.8, Chloride Level 101, Carbon Dioxide Level 15L, Anion Gap 17H, Blood Urea Nitrogen 70H, Creatinine 5.4H, Estimat Glomerular Filtration Rate 12.6, Glucose Level 114H, Calcium Level 7.0L, Total Bilirubin 1.4H, Direct Bilirubin 1.1H, Aspartate Amino Transf (AST/SGOT) 138H, Alanine Aminotransferase (ALT/SGPT) 173H, Alkaline Phosphatase 139H, Total Creatine Kinase 645H, Total Protein 5.4L, Albumin 1.0L, Globulin 4.4 , Albumin/Globulin Ratio 0.2L Height (Feet): 5 Height (Inches): 10.00 Weight (Pounds): 234 Objective Obese AA Man NCAT (+) Trach coarse BS RR Abd Healing prior GT site,(+) brown discharge around GT site trace edema non interactive Rubia Hawk MD Sep 01, 2019 16:11
--- NOTE | 2019-09-01 16:30 | NUR ---
NURSE NOTES: Levophed increased to 6mcg/min for BP of 82/34, patient has tube feeding on hold for residuals and drainage from g-tube site, Dr. Hawk aware of drainage.
--- NOTE | 2019-09-01 16:45 | NUR ---
NURSE NOTES: Dr. Hawk called to notify of discontinuing ct scan until patient condition inproves and after assessing his condition tomorrow afternoon.
--- NOTE | 2019-09-01 17:00 | NUR ---
NURSE NOTES: Levophed increased to 8mcg/min at bp of 87/38, tube feeding restarted at 10ml/hr.
--- NOTE | 2019-09-01 19:20 | NUR ---
HAND-OFF: Report given to KEHINDE Lopez.
--- NOTE | 2019-09-01 19:21 | NUR ---
NURSE NOTES: Patient received from KEHINDE Bradshaw. patient obtunded, opens eyes spontaneously but does not follow commands. patient with portex 8 trach on ventilator AC 14 TV 450 FiO2 50% PEEP 5. BP 102/51 HR 89 NSR on monitor temp 101.5F axillary, ice packs applied. left upper arm PICC clean and asymptomatic running Levophed at 8mcg/hr and D51/2NS @50ml/hr. gtube running Glucerna 1.2 @10ml/hr with abdomen soft round distended. lindsey catheter draining scant dark marifer urine with sediment. rectal tube draining loose brown stool. will continue plan of care.
--- NOTE | 2019-09-01 19:45 | NUR ---
NURSE NOTES: Paged Dr. Miles to report abnormal labs and patient oliguric with dark marifer urine and sediment noted. Dr. Miles aware. Dr. Yadav stated he would speak to Dr. Rausch. orders received read back and carried out.
[2019-09-01] MEDS: Dyna-Hex 2% Top Sol 2oz TOPIC SCH (20:13)
--- NOTE | 2019-09-01 22:00 | NUR ---
NURSE NOTES: patient obtunded, opens eyes but unable to follow commands. patient with trach on ventilator AC 14 TV 450 FiO2 50% PEEP 5. moderate amount of thick velez secretions noted. BP 102/51 HR 89 NSR on monitor temp 101.5F axillary, patient placed on cooling blanket. left upper arm PICC clean and asymptomatic running Levophed at 10 g/hr and D51/2NS @50ml/hr. gtube running Glucerna 1.2 @10ml/hr with abdomen soft round distended. lindsey catheter draining scant dark marifer urine with sediment. rectal tube draining loose brown stool. bilateral arm +2 pitting edema noted. patient repositioned and oral care provided. will continue to monitor.
[2019-09-02] VITALS (61 sets, daily range): BP systolic 47–137; BP diastolic 16–88
--- NOTE | 2019-09-02 | NUR ---
NURSE NOTES: patient obtunded, opens eyes but unable to follow commands. patient with trach on ventilator AC 14 TV 450 FiO2 50% PEEP 5. moderate amount of thick velez secretions noted. BP 127/48 HR 70 NSR on monitor temp 99.0F Rectal on cooling blanket. left upper arm PICC clean and asymptomatic running Levophed at 10mcg/min and D51/2NS @50ml/hr. gtube running Glucerna 1.2 @10ml/hr with abdomen soft round distended. lindsey catheter draining scant dark marifer urine with sediment. rectal tube reinserted. patient given CHG bath, repositioned and oral care provided. will continue to monitor.
--- NOTE | 2019-09-02 02:00 | NUR ---
NURSE NOTES: patient obtunded with trach on ventilator AC 14 TV 450 FiO2 50% PEEP 5. BP 126/58 HR 80 NSR on monitor. left upper arm PICC clean and asymptomatic, running Levophed @ 2mcg/min and D51/2NS @50ml/hr. gtube running Glucerna 1.2 @10ml/hr with abdomen soft round distended. lindsey catheter draining scant dark marifer urine. rectal tube in place. patient repositioned and oral care provided. will continue to monitor.
--- NOTE | 2019-09-02 03:00 | Progress Note ---
DATE: 09/01/2019 CARDIOLOGY PROGRESS NOTE SUBJECTIVE: The patient remains in the intensive care unit. Off pressors at this time, but remaining on ventilator support. Oxygen requirements remain at 80%. Poor renal output is noted. OBJECTIVE: VITAL SIGNS: Blood pressure 137/47, pulse 96, respirations 26, temperature max 101. LUNGS: Bilateral rhonchi. Thick secretions. CARDIAC: Irregularly irregular rhythm. Normal S1, S2. ABDOMEN: Soft. G-tube intact. EXTREMITIES: Trace edema. Monitor sinus rhythm with paroxysms of atrial fibrillation. LABORATORY DATA: White count 17.9, hemoglobin 9.8. Lactic acid 2.5. Troponin 12. IMPRESSION: 1. Critical and guarded. 2. Acute myocardial infarction. 3. Lactic acidosis. 4. Respiratory failure. 5. Sepsis with shock recovering. 6. Acute on chronic renal failure. 7. Anemia. 8. Status post G-tube replacement post migration. PLAN: 1. Ventilator support. 2. Decrease oxygen requirements as able. 3. Antimicrobials per Infectious Disease funeral pre need consultant. 4. Continue beta-blockade. 5. Discontinue intravenous fluids. Augustine Fisher M.D. DR: SANTI JOB#: [id number] CC:
--- NOTE | 2019-09-02 04:00 | NUR ---
NURSE NOTES: patient obtunded with trach on ventilator AC 14 TV 450 FiO2 50% PEEP 5. moderate amount of thick velez secretions noted. BP 93/38 HR 82 NSR on monitor temp 98.4F Rectal on cooling blanket. left upper arm PICC clean and asymptomatic, TKO. gtube running Glucerna 1.2 @10ml/hr with abdomen soft round distended. lindsey catheter draining scant dark marifer urine with sediment. rectal tube in place. patient repositioned and oral care provided. will continue to monitor.
[2019-09-02] MEDS: Metoclopramide 10mg/2ml Inj IVP SCH ×3 (05:00→21:13)
[2019-09-02 05:55] LABS: HEMATOCRIT 32.8 % (42.0-52.0); HEMOGLOBIN 10.2 G/DL (14.2-18.0); MEAN CORPUSCULAR VOLUME 100 FL (80-99); PLATELET COUNT 76 K/UL (150-450); RED BLOOD COUNT 3.28 M/UL (4.70-6.10)
--- NOTE | 2019-09-02 06:00 | NUR ---
NURSE NOTES: patient obtunded with trach on ventilator AC 14 TV 450 FiO2 50% PEEP 5. BP 97/44 HR 76 NSR on monitor and afebrile on cooling blanket. left upper arm PICC clean and asymptomatic running Levophed 4mcg/min. gtube running Glucerna 1.2 @10ml/hr with abdomen soft round distended. lindsey catheter draining scant dark marifer urine. rectal tube in place. patient repositioned and oral care provided. will continue to monitor.
[2019-09-02 06:21] LABS: ANION GAP 18 mmol/L (5-15); BLOOD UREA NITROGEN 87 mg/dL (7-18); CALCIUM 7.3 MG/DL (8.5-10.1); CARBON DIOXIDE 15 MMOL/L (21-32); CHLORIDE 99 MMOL/L (98-107); CREATININE 6.3 MG/DL (0.55-1.30); POTASSIUM 4.1 MMOL/L (3.5-5.1); SODIUM 132 MMOL/L (136-145)
--- NOTE | 2019-09-02 07:14 | NUR ---
HAND-OFF: Report given to KEHINDE Howard. endorsed plan of care.
--- NOTE | 2019-09-02 07:15 | NUR ---
NURSE NOTES: Received patient from Jessica BUSBY. Patient is A. Fib on the heart monitor, HR 77-89. Receiving oxygen via Portex 8, vent settings: AC 14, TV 450, FiO2 50%, PEEP 5. G-tube is intact and receiving Glucerna 1.2 at 10cc/hr. IV site is Left Upper Arm PICC, receiving Levophed at 2mcg/min. Thakkar catheter is intact and draining, rectal tube is patent and draining. Bed is locked, placed in lowest position, side rails up x3, bed alarm on, call light within reach, head of bed elevated. Will continue to monitor.
[2019-09-02] MEDS: Pantoprazole Inj IVP SCH (08:38)
[2019-09-02] MEDS: Vancomycin oral 125mg/2.5ml ORAL SCH (08:38)
[2019-09-02] MEDS: Metoprolol Tartrate 50mg tab GT SCH ×2 (08:44→21:00)
[2019-09-02] MEDS: Ascorbic Acid 500mg tab GT SCH (08:45)
[2019-09-02] MEDS: Amantadine 100mg cap GT SCH (08:45)
[2019-09-02] MEDS: Heparin 5000 units/ml inj SUBQ SCH ×2 (08:51→21:13)
[2019-09-02] MEDS ORDERED: Omnipaque-300 100ml vial INJ PRN ×2 (09:15→09:45)
--- NOTE | 2019-09-02 09:47 | General Progress Note ---
Assessment/Plan Assessment/Plan: Assessment - Arterial GT site bleeding --> now with GT site infection - sepsis, shock - renal failure, oliguric - UT - afib - Anemia - C difficile - on GT and IV Rx - Ileus / abd distention - ? ileus, ? C Diff megacolon, ? intra-abd infection - GT migration - removed --> site healed and closed - OB (+) stools - due to ulcerative gastritis, no colonoscopy per DPOA - s/p Trach - poor prognosis Recommendations - PPI - transfuse PRN - abx - pressors - CT abd / pelvis when feasible - abx per ID - follow exam and labs - surgical wound follow up - supportive care Subjective Allergies: Coded Allergies: No Known Allergies (Unverified , 08/07/19) Subjective Above noted patient seen in ICU d/w RN, cardiology, and surgery was doing a bit better overnight - lactate normal, less pressors but this am became hypotensive again - evonne ordered CT ordered, but may not be stable for transport low rate TF tolerated, no significant residual small vol BM - 100cc Oliguric Objective Last 24 Hour Vital Signs Date Time Temp Pulse Resp B/P (MAP) Pulse Ox O2 Delivery O2 Flow Rate FiO2 09/02/19 09:00 75/43 09/02/19 08:45 133 33 125/59 (81) 100 09/02/19 08:44 131 100/45 09/02/19 08:30 127 26 79/49 (59) 100 09/02/19 08:30 79/49 09/02/19 08:00 Mechanical Ventilator 09/02/19 08:00 97.5 121 28 99/45 (63) 97 09/02/19 08:00 99/45 09/02/19 08:00 50 09/02/19 07:30 78 34 123/48 (73) 92 09/02/19 07:00 81 28 132/54 (80) 98 09/02/19 07:00 87 40 50 09/02/19 07:00 132/54 09/02/19 06:00 76 20 97/44 (61) 99 09/02/19 06:00 97/44 09/02/19 05:15 93 31 97/46 (63) 94 09/02/19 05:00 79 26 83/36 (52) 94 7/4/20 05:00 83/36 09/02/19 04:00 50 09/02/19 04:00 84 09/02/19 04:00 Mechanical Ventilator 09/02/19 04:00 98.4 82 21 93/38 (56) 96 09/02/19 03:00 111/56 09/02/19 03:00 88 28 111/56 (74) 96 09/02/19 02:38 84 34 50 09/02/19 02:00 126/58 09/02/19 02:00 80 27 126/58 (80) 100 09/02/19 01:00 137/55 09/02/19 01:00 74 32 137/55 (82) 98 09/02/19 00:00 94 09/02/19 00:00 Mechanical Ventilator 09/02/19 00:00 127/48 09/02/19 00:00 99.0 70 18 127/48 (74) 100 09/01/19 23:00 125/50 09/01/19 23:00 77 23 125/50 (75) 97 09/01/19 22:58 78 33 50 09/01/19 22:00 104/55 09/01/19 22:00 77 28 104/55 (71) 98 09/01/19 21:00 80 29 107/54 (71) 97 09/01/19 21:00 107/54 09/01/19 20:30 89 30 101/57 (72) 97 09/01/19 20:14 91 107/45 09/01/19 20:00 50 09/01/19 20:00 Mechanical Ventilator 09/01/19 20:00 101.5 87 30 94/49 (64) 96 09/01/19 20:00 93 09/01/19 20:00 94/49 09/01/19 19:17 100.7 09/01/19 19:00 89 30 102/51 (68) 97 09/01/19 18:49 95 33 50 09/01/19 18:30 89 27 109/38 (61) 96 09/01/19 18:00 109/50 09/01/19 18:00 94 25 109/50 (69) 95 09/01/19 17:30 89 20 91/42 (58) 97 09/01/19 17:11 87 32 50 09/01/19 17:00 87/38 09/01/19 17:00 85 26 90/38 (55) 96 09/01/19 16:30 102.0 82 26 82/34 (50) 95 09/01/19 16:30 82/34 09/01/19 16:00 50 09/01/19 16:00 Mechanical Ventilator 09/01/19 16:00 83/37 09/01/19 16:00 80 09/01/19 16:00 83 39 83/37 (52) 94 09/01/19 15:30 87 29 95/42 (59) 95 09/01/19 15:19 91 30 50 09/01/19 15:00 83/38 09/01/19 15:00 86 31 83/38 (53) 95 09/01/19 14:30 86 32 113/38 (63) 96 09/01/19 14:14 133/46 09/01/19 14:00 95 30 118/45 (69) 99 09/01/19 13:30 106 31 144/50 (81) 97 09/01/19 13:00 130/55 09/01/19 13:00 110 40 130/55 (80) 99 09/01/19 12:30 106 30 139/59 (85) 99 09/01/19 12:00 60 09/01/19 12:00 98 09/01/19 12:00 121/50 09/01/19 12:00 100.2 99 46 121/50 (73) 99 09/01/19 12:00 Mechanical Ventilator 09/01/19 11:43 108 27 60 09/01/19 11:30 107 35 120/54 (76) 100 09/01/19 11:00 118/43 09/01/19 11:00 109 32 118/43 (68) 99 09/01/19 10:30 96 31 117/43 (67) 100 09/01/19 10:00 99 43 114/52 (72) 99 09/01/19 10:00 114/52 Intake and Output 09/01/19 09/02/19 19:00 07:00 Intake Total 1504.79288 ml 959.08 ml Output Total 170 ml 135 ml Balance 1334.86338 ml 824.08 ml Free Water 180 ml IV Total 1094.16001 ml 809.08 ml Tube Feeding 180 ml 120 ml Other 50 ml 30 ml Output Urine Total 70 ml 35 ml Stool Total 100 ml 100 ml Laboratory Tests 09/01/19 22:00: Lactic Acid Level 2.40H 09/01/19 23:35: Lactic Acid Level 2.50H 09/02/19 04:20: Lactic Acid Level 1.90, White Blood Count 15.0H, Red Blood Count 3.28L, Hemoglobin 10.2L, Hematocrit 32.8L, Mean Corpuscular Volume 100H, Mean Corpuscular Hemoglobin 31.2H, Mean Corpuscular Hemoglobin Concent 31.2L, Red Cell Distribution Width 16.0H, Platelet Count 76L, Mean Platelet Volume 10.4H, Neutrophils (%) (Auto) , Lymphocytes (%) (Auto) , Monocytes (%) (Auto) , Eosinophils (%) (Auto) , Basophils (%) (Auto) , Differential Total Cells Counted 100, Neutrophils % (Manual) 88H, Lymphocytes % (Manual) 8L, Monocytes % (Manual) 4, Eosinophils % (Manual) 0, Basophils % (Manual) 0, Band Neutrophils 0 , Platelet Estimate DecreasedL, Platelet Morphology Normal, Hypochromasia 1+, Anisocytosis 1+, Macrocytosis 1+, Sodium Level 132L, Potassium Level 4.1, Chloride Level 99, Carbon Dioxide Level 15L, Anion Gap 18H, Blood Urea Nitrogen 87H, Creatinine 6.3H, Estimat Glomerular Filtration Rate 10.5, Glucose Level 98 , Calcium Level 7.3L, Troponin I 6.707H 09/02/19 09:24: Arterial Blood pH [Pending], Arterial Blood Partial Pressure CO2 [Pending], Arterial Blood Partial Pressure O2 [Pending], Arterial Blood HCO3 [Pending], Arterial Blood Oxygen Saturation [Pending], Arterial Blood Base Excess [Pending] , Álvaro Test [Pending] Height (Feet): 5 Height (Inches): 10.00 Weight (Pounds): 241 Objective Obese AA Man NCAT (+) Trach coarse BS RR Abd soft but mod distended, Healing prior GT site,(+) brown discharge around new GT site (+) edema non interactive Rubia Hawk MD Sep 02, 2019 09:47
--- NOTE | 2019-09-02 09:56 | NUR ---
NURSE NOTES: Patient's blood pressure became unstable, at 0830 blood pressure read 79/49. Levophed was titrated up based on protocol, Currently at 18mcg/min, blood pressure at 0956 read 114/54. Will continue to monitor.
[2019-09-02] MEDS ORDERED: Phenylephrine 50 MG in D5W 245 ML IV PRN (10:30)
[2019-09-02] MEDS ORDERED: Sodium Bicarbonate 50ml Carp IV SCH (10:45)
--- NOTE | 2019-09-02 10:45 | NUR ---
NURSE NOTES: Reported ABG results to Dr. Hurt, orders received.
--- NOTE | 2019-09-02 13:36 | NUR ---
NURSE NOTES: Reported ABG results to covering , Dr. Parrish. No orders received.
[2019-09-02] MEDS: Cefepime HCl 2 GM in D5W 55 ML IVPB SCH (13:44)
[2019-09-02] MEDS: Vancomycin oral 125mg/2.5ml GT SCH ×3 (13:44→21:12)
[2019-09-02] MEDS: Sodium Bicarbonate 100 ML in D5W 1000ml 1,000 ML IV SCH ×2 (14:26→19:54)
--- NOTE | 2019-09-02 14:50 | NUR ---
CASE MANAGEMENT:REVIEW 09/02/19 SI: AMI. SEPSIS. PNA. PAFIB T 97.5 HR 79 RR 30 B/P 117/54 SATS 100% ON MECH VENT FIO2 60 LABS: WBC 15 NA 132 CO2 15 BUN 87 CR 6.3 CA 7.3 TROPONIN 6.707 ABGs PH 7.259 PCO2 33.3 HCO3 14.6 O2 SAT 94.9 BE -11.4 IS: IV CEFEPIME Q24H IV FLAGYL Q8HRS IV PROTONIX QD IVF@50/HR HEPARIN SUBQ Q12H LOPRESSOR GT Q12H : ICU STATUS DCP: FROM [facility] PLAN OF CARE: CT A/P
[2019-09-02] MEDS ORDERED: NS 275ml ONE ×2 (14:58→21:16)
[2019-09-02] MEDS ORDERED: Sterile Water Irrig 1000ml IRRIG ONE (14:58)
[2019-09-02] MEDS ORDERED: D5W 550ml IV ONE (14:58)
--- NOTE | 2019-09-02 16:49 | NUR ---
NURSE NOTES: Patient seen and assessed by Dr. Parrish.
--- NOTE | 2019-09-02 17:00 | Consultation ---
DATE OF CONSULTATION: 09/02/2019 REFERRING PHYSICIANS: Isaiah Hurt M.D. and Augustine Parrish M.D. REASON FOR CONSULTATION: Acute kidney injury. HISTORY OF PRESENT ILLNESS: The patient has had prolonged hospitalization in this hospital. He is ventilator dependent, now post cardiopulmonary arrest, unresponsive. He had an episode of acute kidney injury, which improved and on 08/28/2019 BUN 26 and creatinine 1.4. However, on 08/29/2019 BUN 44, creatinine 3.2, and this has progressed currently with his most recent lab showing a BUN of 87 and creatinine of 6.3, sodium 132, potassium 4.1, chloride 99, CO2 is 15. He has a troponin of 6.7 and elevated lactic acid and has been on sepsis. He also has had a mild elevation of CK to 6.45 and his albumin was 1.0. CURRENT MEDICATIONS: Reviewed on the computer include the following: Cefepime, metronidazole, norepinephrine drip, phenylephrine, Tylenol, amantadine, ascorbic acid, chlorhexidine, folic acid, subcu heparin, hydralazine, lorazepam, metoclopramide, metoprolol, multivitamins, Protonix, sodium bicarbonate, vancomycin. SYSTEM REVIEW: The patient is unable. PHYSICAL EXAMINATION: GENERAL: The patient is on a ventilator. VITAL SIGNS: Pulse 78, respirations 29, blood pressure 129/55, O2 saturation 100%. HEAD, EYES, EARS, NOSE, AND THROAT: There are gauze bandages over the eyes. Oral mucosa is dry. NECK: Tracheostomy. LUNGS: Hyperventilating, a few faint rhonchi. HEART: Regular rhythm. ABDOMEN: Soft with a gastrostomy. EXTREMITIES: 2+ edema. IMPRESSION: The patient has acute kidney injury and possible prerenal state in the face of anasarca due to low serum albumin. Urine culture has grown Pseudomonas. Blood culture has grown Proteus and Klebsiella ESBL. He is in critical condition. He also has Clostridium difficile. PLAN: At this time, antibiotics are adjusted per other physicians. We will hydrate the patient and observe his response. We will check his urine electrolytes. His condition is critical and prognosis is very poor. Leo Rausch M.D. DR: GONZALO JOB#: [id number] CC:
--- NOTE | 2019-09-02 18:10 | NUR ---
NURSE NOTES: Bed bath given to patient, turned and repositioned. Changed and cleaned wound dressings on patient. No signs of acute distress.
--- NOTE | 2019-09-02 19:11 | NUR ---
HAND-OFF: Report given to Carlos BUSBY.
--- NOTE | 2019-09-02 19:30 | NUR ---
NURSE NOTES: Received patient and report from KEHINDE Howard. Patient is observed resting in bed and remains obtunded. No pain noted upon assessment. Pt is currently trach to vent; vent settings as follows: AC 22 TV 450 FiO2 100 PEEP 5 with an O2 saturation of 100% noted. Pt appears to be tolerating settings well with no s/sx of acute distress noted. Bilateral lower lobe breath sounds noted to be diminished upon auscultation. Pt noted to be SR on tele monitor with a current HR of 89 and no s/sx of acute distress noted. Thakkar catheter noted which remains intact, patent and draining urine to gravity. Left upper arm PICC line noted which remains asymptomatic, intact and patent with NaHCO3 at 200ml/hr and Levophed at 10mcg/min, Central line dressing remains clean, dry and intact. GT remains intact and patent with 10mL residual noted. GT Feeding running as prescribed. Bowel sounds noted in all four quadrants, abdomen remains large, round, firm, distended and non-tender upon assessment. Diagnostics reviewed at bedside. Skin alterations noted. Pt repositioned for comfort and safety. Fall, Aspiration, Seizure and Skin precautions observed. Pt remains resting in bed; Bed remains in the lowest position with the safety wheels engaged, call light within reach, side rails up x2 and bed alarm activated. Will continue plan of care. Will continue to monitor.
--- NOTE | 2019-09-02 19:52 | Pulmonolgy Critical Care Note ---
Critical Care - Asmt/Plan Assessment/Plan: Pulmonary CCM Progress Note Subjective ROS Limited/Unobtainable: Yes Constitutional: Denies: fever Gastrointestinal/Abdominal: Reports: diarrhea Allergies: Coded Allergies: No Known Allergies (Unverified , 08/07/19) Subjective remains ill in ICU hypotensive renal function worsening acidemic On pressors Renal following vitals noted family aware Objective Vital Signs Noted Objective WDWN trach poorly responsive reduced breath sounds bilaterally without rhonchi or wheeze [id number] tachy without MRG NABS nontender no CCE reduced LOC Microbiology Date/Time Source Procedure Growth Status 08/30/19 14:20 Blood Blood Culture - Preliminary Gram Negative Bacillus 1 Gram Negative Bacillus 2 Resulted 08/30/19 14:15 Sputum Gram Stain - Final Resulted 08/30/19 14:15 Sputum Culture - Preliminary Gram Negative Bacillus 1 Gram Negative Bacillus 2 Resulted 08/31/19 04:00 Urine,Clean Catch Urine Culture - Preliminary Gram Negative Alfonso Resulted Laboratory Tests Noted Current Medications Medications (Trade) Dose Ordered Sig/Nury Route PRN Reason Start Time Stop Time Status Last Admin Dose Admin Acetaminophen (Tylenol) 325 mg Q6H PRN RECTAL Temp >100.5 08/28/19 03:45 09/07/19 21:44 Acetaminophen (Tylenol) 650 mg Q4H PRN GT Mild Pain (Pain Scale 1-3) 08/28/19 06:45 09/07/19 10:44 08/31/19 08:11 Acetaminophen (Tylenol) 650 mg Q4H PRN GT Temp >100.5 08/28/19 06:45 09/07/19 10:44 09/01/19 01:41 Amantadine HCl (Symmetrel) 100 mg DAILY GT 08/28/19 09:00 09/08/19 08:59 09/01/19 09:06 Ascorbic Acid (Vitamin C) 250 mg DAILY GT 08/28/19 09:00 09/08/19 08:59 09/01/19 09:06 Cefepime HCl 2 gm/ Dextrose 55 ml @ 110 mls/hr Q24H IVPB 08/30/19 13:00 09/06/19 12:59 08/31/19 13:36 Chlorhexidine Gluconate (Milagros-Hex 2%) 1 applic DAILY@1999 TOPIC 08/28/19 20:00 11/26/19 19:59 08/31/19 20:00 Dextrose/Sodium Chloride 1,000 ml @ 50 mls/hr Q20H IV 08/29/19 08:00 09/28/19 19:59 08/31/19 21:05 Folic Acid (Folate) 1 mg DAILY GT 08/28/19 09:00 09/07/19 14:29 09/01/19 09:08 Heparin Sodium (Porcine) (Heparin 5000 units/ml) 5,000 units EVERY 12 HOURS SUBQ 08/28/19 21:00 10/12/19 20:59 08/29/19 09:09 Hydralazine HCl (Apresoline) 10 mg Q6H PRN GT SBP above 160 08/28/19 04:00 11/26/19 03:59 Hydralazine HCl (Apresoline) 10 mg Q6H PRN IV SBP> 160 08/28/19 03:45 11/06/19 21:44 08/28/19 15:23 Lorazepam (Ativan 2mg/ml 1ml) 1 mg Q2H PRN IV For Anxiety 08/28/19 18:20 09/04/19 18:19 08/28/19 18:30 Metoprolol Tartrate (Lopressor) 50 mg Q12HR GT 08/28/19 09:00 11/24/19 08:59 08/31/19 21:25 Metronidazole 100 ml @ 100 mls/hr Q8HR IVPB 08/28/19 22:45 09/04/19 22:44 09/01/19 05:34 Multivitamins (Multivitamins) 1 tab DAILY GT 08/28/19 09:00 09/08/19 08:59 09/01/19 09:06 Norepinephrine Bitartrate 8 mg/ Dextrose 508 ml @ 0 mls/hr Q24H IV 09/01/19 00:30 10/01/19 00:29 09/01/19 00:52 Pantoprazole (Protonix) 40 mg DAILY IVP 08/29/19 09:00 09/08/19 22:59 09/01/19 09:07 Vancomycin HCl (Firvanq) 125 mg FOUR TIMES A DAY ORAL 08/28/19 13:00 09/04/19 12:59 09/01/19 09:07 Assessment/Plan Assessment/Plan anemia SVT respiratory failure trach chronic encephalopathy GT site infection with replacement low K severe protein calorie malnutrition hypotension s/p CPA electrolyte imbalance acute CO elevated troponin PLAN pressors as needed close cardiology follow up vent support feeds per gi - GT care wound care monitor HH renal follow up ID follow up critical at present ICU care needed critical, poor prognosis impression, plan, and exam edited and reviewed in detail care discussed with apns - Objective Last 24 Hour Vital Signs Date Time Temp Pulse Resp B/P (MAP) Pulse Ox O2 Delivery O2 Flow Rate FiO2 09/02/19 19:00 89 34 106/55 (72) 100 09/02/19 19:00 106/55 09/02/19 18:52 87 33 100 09/02/19 18:30 85 34 105/46 (65) 100 09/02/19 18:00 97 30 106/62 (77) 100 09/02/19 18:00 106/62 09/02/19 17:30 87 31 121/47 (71) 100 09/02/19 17:00 81 33 119/88 (98) 98 09/02/19 17:00 119/88 09/02/19 16:30 87 35 125/56 (79) 99 09/02/19 16:09 82 36 117/61 (79) 100 09/02/19 16:00 82 09/02/19 16:00 98.5 84 35 117/61 (79) 100 09/02/19 16:00 117/61 09/02/19 16:00 Mechanical Ventilator 09/02/19 16:00 60 09/02/19 15:30 81 35 123/56 (78) 100 09/02/19 15:18 79 09/02/19 15:00 131/63 09/02/19 15:00 80 37 100 09/02/19 15:00 81 28 131/63 (85) 100 09/02/19 14:45 81 34 121/55 (77) 100 09/02/19 14:30 86 30 124/54 (77) 100 09/02/19 14:15 87 26 125/56 (79) 99 09/02/19 14:00 118/54 09/02/19 14:00 85 25 118/54 (75) 100 09/02/19 13:30 76 26 123/45 (71) 100 09/02/19 13:15 79 33 106/63 (77) 100 09/02/19 13:00 116/50 09/02/19 13:00 76 30 116/50 (72) 100 09/02/19 12:30 77 30 117/50 (72) 100 09/02/19 12:15 84 38 127/49 (75) 100 09/02/19 12:00 60 09/02/19 12:00 117/54 09/02/19 12:00 Mechanical Ventilator 09/02/19 12:00 97.5 79 30 117/54 (75) 100 09/02/19 12:00 81 09/02/19 11:45 80 28 124/53 (76) 99 09/02/19 11:30 82 37 121/54 (76) 99 09/02/19 11:15 77 29 134/54 (80) 100 09/02/19 11:01 68 34 100 09/02/19 11:00 78 29 129/55 (79) 100 09/02/19 10:54 136/50 09/02/19 10:50 136/50 09/02/19 10:45 72 25 136/50 (78) 100 09/02/19 10:30 73 24 136/51 (79) 100 09/02/19 10:15 73 32 125/55 (78) 92 09/02/19 10:00 119/40 09/02/19 10:00 71 33 119/40 (66) 99 09/02/19 09:45 74 28 114/54 (74) 100 09/02/19 09:30 51/14 09/02/19 09:30 89 27 51/16 (28) 84 09/02/19 09:15 91 16 47/35 (39) 100 09/02/19 09:10 75/43 09/02/19 09:00 118 27 75/43 (54) 95 09/02/19 09:00 75/43 09/02/19 08:45 133 33 125/59 (81) 100 09/02/19 08:44 131 100/45 09/02/19 08:30 127 26 79/49 (59) 100 09/02/19 08:30 79/49 09/02/19 08:00 Mechanical Ventilator 09/02/19 08:00 97.5 121 28 99/45 (63) 97 09/02/19 08:00 99/45 09/02/19 08:00 50 09/02/19 07:38 71 09/02/19 07:30 78 34 123/48 (73) 92 09/02/19 07:00 81 28 132/54 (80) 98 09/02/19 07:00 87 40 50 09/02/19 07:00 132/54 09/02/19 06:00 76 20 97/44 (61) 99 09/02/19 06:00 97/44 09/02/19 05:15 93 31 97/46 (63) 94 09/02/19 05:00 79 26 83/36 (52) 94 09/02/19 05:00 83/36 09/02/19 04:00 50 09/02/19 04:00 84 09/02/19 04:00 Mechanical Ventilator 09/02/19 04:00 98.4 82 21 93/38 (56) 96 09/02/19 03:00 111/56 09/02/19 03:00 88 28 111/56 (74) 96 09/02/19 02:38 84 34 50 09/02/19 02:00 126/58 09/02/19 02:00 80 27 126/58 (80) 100 09/02/19 01:00 137/55 09/02/19 01:00 74 32 137/55 (82) 98 09/02/19 00:00 94 09/02/19 00:00 Mechanical Ventilator 09/02/19 00:00 127/48 09/02/19 00:00 99.0 70 18 127/48 (74) 100 09/01/19 23:00 125/50 09/01/19 23:00 77 23 125/50 (75) 97 09/01/19 22:58 78 33 50 09/01/19 22:00 104/55 09/01/19 22:00 77 28 104/55 (71) 98 09/01/19 21:00 80 29 107/54 (71) 97 09/01/19 21:00 107/54 09/01/19 20:30 89 30 101/57 (72) 97 20 20:14 91 107/45 09/01/19 20:00 50 09/01/19 20:00 Mechanical Ventilator 09/01/19 20:00 101.5 87 30 94/49 (64) 96 09/01/19 20:00 93 09/01/19 20:00 94/49 Micro: Microbiology Date/Time Source Procedure Growth Status 08/31/19 04:00 Urine,Clean Catch Urine Culture - Final Pseudomonas Aeruginosa Complete Accucheck: 155 Critical Care - Subjective ROS Limited/Unobtainable: No Condition: critical FI02: 100 Vent Support Breath Rate: 22 Vent Support Mode: AC Vent Tidal Volume: 450 Sputum Amount: None PEEP: 5.0 PIP: 23 Tube Feeding Amount: 10 I&O: Intake and Output 09/01/19 09/02/19 19:00 07:00 Intake Total 1504.16741 ml 959.08 ml Output Total 170 ml 135 ml Balance 1334.17859 ml 824.08 ml Free Water 180 ml IV Total 1094.57067 ml 809.08 ml Tube Feeding 180 ml 120 ml Other 50 ml 30 ml Output Urine Total 70 ml 35 ml Stool Total 100 ml 100 ml Augustine Parrish MD Sep 02, 2019 19:52
--- NOTE | 2019-09-02 20:00 | NUR ---
NURSE NOTES: Bedside assessment performed. Patient was provided with a bed bath, oral care, linen change and suctioning for excess oral secretions. Wound care performed per orders. ROM exercises provided per patient tolerance. Pt tolerated care well. Bedside assessment performed. Pt was assessed for pain using FLACC scale with a score of 0 noted. VS obtained and remain stable at this time while on pressor. Pt repositioned for comfort and safety. Fall, Aspiration, and Skin precautions observed. Pt remains resting in bed; Bed remains in the lowest position with the safety wheels engaged, call light within reach, side rails up x3 and bed alarm activated. Will continue plan of care. Will continue to monitor.
--- NOTE | 2019-09-02 21:00 | NUR ---
NURSE NOTES: Lopressor 50mg held due to already low BP. Will continue to monitor.
[2019-09-02] MEDS: Dyna-Hex 2% Top Sol 2oz TOPIC SCH (21:12)
[2019-09-02] MEDS ORDERED: D5 1/2NS 1000ml IV ONE (21:16)
[2019-09-02] MEDS ORDERED: Tubing IV Secondary IV ONE (21:16)
--- NOTE | 2019-09-02 22:16 | NUR ---
NURSE NOTES: Bedside assessment performed. ROM exercises provided per patient tolerance. Pt tolerated care well. Pt was assessed for pain using FLACC scale with a score of 0 noted. VS obtained and remain stable at this time while on pressor. Pressors being titrated as accordingly. Pt repositioned for comfort and safety. Fall, Aspiration, and Skin precautions observed. Pt remains resting in bed; Bed remains in the lowest position with the safety wheels engaged, call light within reach, side rails up x2 and bed alarm activated. Will continue plan of care. Will continue to monitor.
[2019-09-03] VITALS (45 sets, daily range): BP systolic 50–159; BP diastolic 24–118
--- NOTE | 2019-09-03 | NUR ---
NURSE NOTES: Patient had an hypotension moment where SBP dropped into the 60s and 70s. After recycling blood pressure several times to make sure it was a correct reading, we increased Pressors to 16mcg/min to maintain SBP above 95. Patient also desaturated into the 70s. Patient was suctioned, and fio2 increased to 100% for the mean time where Saturations slowly increased to the low 90s. HR remains NSR, pulses present, Oral hygiene provided. Will continue to monitor.
--- NOTE | 2019-09-03 00:30 | NUR ---
NURSE NOTES: Called Dr. Parrish and informed MD of patients current condition. Orders to increase RR to 24 and repeat ABG in the AM.
[2019-09-03] MEDS: Sodium Bicarbonate 100 ML in D5W 1000ml 1,000 ML IV SCH ×3 (01:25→11:49)
--- NOTE | 2019-09-03 02:00 | NUR ---
NURSE NOTES: Bedside assessment performed. Patients BP more stable at this time, HR is 85 NSR and sometimes may go into a Afib. ROM exercises provided per patient tolerance. Pt tolerated care well. Pt was assessed for pain using FLACC scale with a score of 0 noted. VS obtained and remain stable at this time while on pressor. Pressors being titrated as accordingly. Pt repositioned for comfort and safety. Fall, Aspiration, and Skin precautions observed. Pt remains resting in bed; Bed remains in the lowest position with the safety wheels engaged, call light within reach, side rails up x2 and bed alarm activated. Will continue plan of care. Will continue to monitor.
--- NOTE | 2019-09-03 02:00 | Progress Note ---
DATE: 09/02/2019 CARDIOLOGY PROGRESS NOTE SUBJECTIVE: The patient remains on ventilator support. Condition is deteriorating. He is hypotensive again and has required pressor support. Discussed with Dr. Hawk. Concern raised again over G-tube ___. OBJECTIVE: VITAL SIGNS: Blood pressure 72/31, heart rate 69, respiratory rate 32. LUNGS: Bilateral breath sounds. Rhonchi. CARDIAC: Irregular rhythm and rate. Normal S1 and S2. ABDOMEN: Soft. Slightly distended. EXTREMITIES: 1+ edema. Monitor sinus rhythm alternating with episodes of rapid atrial fibrillation. LABORATORY DATA: Urine culture, Pseudomonas. Blood culture, Klebsiella and Proteus. Sputum culture, Klebsiella and Providencia. LABORATORY DATA: White count 15 and hemoglobin 10. ABG this morning 7.17, 31, 56. Sodium 132, potassium 4.1, bicarb 15, BUN 87, creatinine 6.3. Troponin down to 6.7. IMPRESSION: 1. Multiorgan system failure. 2. Acute myocardial infarction. 3. Acute renal failure. 4. Sepsis with shock. 5. Resolved lactic acidosis. 6. Hypoxia. 7. Metabolic acidosis. 8. Remains critical and guarded. PLAN: 1. Antimicrobials. 2. Ventilator support. 3. Volume support. 4. Taper pressors. 5. Continue beta-albaro as tolerated by blood pressure. 6. CT imaging of the abdomen to be obtained. 7. Remains critical and guarded. Augustine Fisher M.D. DR: ELIESER JOB#: [id number] CC:
--- NOTE | 2019-09-03 04:00 | NUR ---
NURSE NOTES: Bedside assessment performed. Patient was provided with a bed bath, oral care, linen change and suctioning for excess oral secretions. Blood drawn and sent to lab. Wound care performed per orders. ROM exercises provided per patient tolerance. Pt tolerated care well. Bedside assessment performed. Pt was assessed for pain using FLACC scale with a score of 0 noted. VS obtained and remain stable at this time while on pressor. Pt repositioned for comfort and safety. Fall, Aspiration, and Skin precautions observed. Pt remains resting in bed; Bed remains in the lowest position with the safety wheels engaged, call light within reach, side rails up x4 and bed alarm activated. Will continue plan of care. Will continue to monitor.
[2019-09-03] MEDS: Metoclopramide 10mg/2ml Inj IVP SCH ×2 (05:31→14:00)
[2019-09-03 06:23] LABS: ALANINE AMINOTRANSFERASE 79 U/L (12-78); ALBUMIN 0.9 G/DL (3.4-5.0); ALBUMIN/GLOBULIN RATIO 0.2 (1.0-2.7); ALKALINE PHOSPHATASE 146 U/L (46-116); ANION GAP 16 mmol/L (5-15); ASPARTATE AMINO TRANSFERASE 55 U/L (15-37); BILIRUBIN,TOTAL 1.5 MG/DL (0.2-1.0); BLOOD UREA NITROGEN 90 mg/dL (7-18); CARBON DIOXIDE 18 MMOL/L (21-32); CHLORIDE 96 MMOL/L (98-107); CREATINE KINASE 164 U/L (26-308); CREATININE 6.4 MG/DL (0.55-1.30); POTASSIUM 4.1 MMOL/L (3.5-5.1); SODIUM 130 MMOL/L (136-145)
--- NOTE | 2019-09-03 07:10 | NUR ---
NURSE NOTES: Received patient from Carlos BUSBY. Patient is A. Fib on the heart monitor, HR 90-106. Receiving oxygen via Portex 8, vent settings: AC 24, TV 450, FiO2 100%, PEEP 5. G-tube is intact and receiving Glucerna 1.2 at 40cc/hr. IV site is Left Upper Arm PICC, receiving Levophed at 18 mcg/min. Thakkar catheter is intact and draining, rectal tube is patent and draining. Bed is locked, placed in lowest position, side rails up x3, bed alarm on, call light within reach, head of bed elevated. Will continue to monitor.
[2019-09-03] MEDS: Pantoprazole Inj IVP SCH (08:06)
[2019-09-03] MEDS: Ascorbic Acid 500mg tab GT SCH (08:06)
[2019-09-03] MEDS: Heparin 5000 units/ml inj SUBQ SCH (08:07)
[2019-09-03] MEDS: Metoprolol Tartrate 50mg tab GT SCH (08:07)
[2019-09-03] MEDS: Vancomycin oral 125mg/2.5ml GT SCH ×2 (08:07→13:00)
--- NOTE | 2019-09-03 08:16 | NUR ---
NURSE NOTES: Medications given as prescribed, no adverse reaction noted. Patient is afebrile, rectal temperature 98.1 degrees Fahrenheit. Turned and repositioned patient. Thick yellow secretions suctioned from oral cavity and trach. Will continue to monitor.
--- NOTE | 2019-09-03 08:55 | NUR ---
NURSE NOTES: Patient seen and assessed by Dr. Hawk.
--- NOTE | 2019-09-03 09:20 | NUR ---
NURSE NOTES: ABG results reported to Dr. Parrish, orders received.
[2019-09-03] MEDS ORDERED: Meropenem 500mg/NS 55ml IVPB SCH ×2 (11:00)
--- NOTE | 2019-09-03 11:24 | Infectious Diseases Prog Note ---
Assessment/Plan Assessment/Plan A: shock Proteus & Klebsiella sepsis C. difficile colitis Pseudomonas UTI Acute AR Gastrostomy infection Pseudomonas & Providencia pneumonia VDRF Anemia Pressure ulcer Diverticulosis P; Continue PO Vancomycin & Meropenem Consider removal of PICC line, when is more stable Artificial tear Poor prognosis Subjective ROS Limited/Unobtainable: Yes Constitutional: Denies: fever Cardiovascular: Reports: other - on Levophed 16 libertad/kg/min Allergies: Coded Allergies: No Known Allergies (Unverified , 08/07/19) Objective Last 24 Hour Vital Signs Date Time Temp Pulse Resp B/P (MAP) Pulse Ox O2 Delivery O2 Flow Rate FiO2 09/03/19 10:00 113 38 116/51 (72) 92 09/03/19 10:00 116/51 09/03/19 09:30 122 38 112/53 (72) 93 09/03/19 09:00 110/46 09/03/19 09:00 97 37 110/46 (67) 91 09/03/19 08:30 92 38 120/53 (75) 91 09/03/19 08:28 126 09/03/19 08:07 85 123/48 09/03/19 08:00 98.1 95 36 123/48 (73) 91 09/03/19 08:00 100 09/03/19 08:00 123/48 09/03/19 08:00 Mechanical Ventilator 09/03/19 07:30 95 32 115/39 (64) 94 09/03/19 07:04 91 36 100 09/03/19 07:00 96 30 104/52 (69) 94 09/03/19 07:00 104/52 09/03/19 06:00 105/46 09/03/19 06:00 90 27 109/46 (67) 93 09/03/19 05:43 104/49 09/03/19 05:31 119/49 09/03/19 05:30 95 35 104/49 (67) 94 09/03/19 05:15 94 33 104/50 (68) 93 09/03/19 05:00 91 34 110/47 (68) 94 09/03/19 04:45 92 34 118/46 (70) 94 09/03/19 04:30 93 29 111/47 (68) 94 09/03/19 04:15 106 30 121/51 (74) 93 09/03/19 04:00 119/49 09/03/19 04:00 99.2 98 31 107/50 (69) 95 09/03/19 04:00 Mechanical Ventilator 09/03/19 04:00 100 09/03/19 03:45 94 31 116/49 (71) 95 09/03/19 03:41 91 33 70 09/03/19 03:30 96 31 116/46 (69) 95 09/03/19 03:15 94 32 125/48 (73) 95 09/03/19 03:04 125 09/03/19 03:00 91 31 128/66 (86) 94 09/03/19 03:00 128/66 09/03/19 02:45 96 29 126/48 (74) 90 09/03/19 02:30 99 26 138/52 (80) 86 09/03/19 02:15 98 23 125/106 (112) 88 09/03/19 02:00 140/118 09/03/19 02:00 107 29 140/118 (125) 94 09/03/19 01:45 98 36 121/94 (103) 98 09/03/19 01:30 119 31 112/59 (76) 93 09/03/19 01:15 126 30 124/54 (77) 94 09/03/19 01:11 86 26 111/53 (72) 62 09/03/19 01:06 68 30 60/43 (49) 62 09/03/19 01:03 66 29 78/41 (53) 71 09/03/19 01:00 69 32 72/31 (45) 71 09/03/19 01:00 60/19 09/03/19 00:45 91 31 90/41 (57) 92 09/03/19 00:45 72/22 09/03/19 00:30 91 31 96/44 (61) 93 09/03/19 00:15 98 28 104/73 (83) 92 09/03/19 00:00 Mechanical Ventilator 09/03/19 00:00 98.4 90 24 111/44 (66) 89 09/03/19 00:00 100 09/02/19 23:59 95/35 09/02/19 23:50 89 22 95/35 (55) 77 7/4/20 23:47 108 29 79/32 (48) 82 7/20 23:45 88 27 61/16 (31) 80 720 23:45 69/19 720 23:30 92 28 91/24 (46) 94 720 23:30 79/29 720 23:15 85 36 90/46 (61) 95 20 23:08 96 36 70 720 23:06 87 31 91/31 (51) 97 20 23:04 85 720 23:00 90/51 720 23:00 86 23 98/48 (65) 95 20 22:47 85 28 93/46 (62) 96 20 22:45 84 32 87/34 (51) 96 20 22:30 101 36 92/56 (68) 97 09/02/19 22:00 99/53 09/02/19 22:00 89 39 91/42 (58) 98 09/02/19 21:30 92 34 96/49 (65) 97 20 21:00 99/46 7 21:00 84 89/46 09/02/19 21:00 94 35 99/46 (63) 97 20 20:30 87 39 109/57 (74) 95 09/02/19 20:00 97.8 89 34 110/49 (69) 99 20 20:00 Mechanical Ventilator 09/02/19 20:00 110/49 20 20:00 80 09/02/19 19:30 84 37 108/46 (66) 98 20 19:25 82 720 19:00 89 34 106/55 (72) 100 720 19:00 106/55 09/02/19 18:52 87 33 100 20 18:30 85 34 105/46 (65) 100 20 18:00 97 30 106/62 (77) 100 20 18:00 106/62 20 17:30 87 31 121/47 (71) 100 20 17:00 81 33 119/88 (98) 98 09/02/19 17:00 119/88 09/02/19 16:30 87 35 125/56 (79) 99 09/02/19 16:09 82 36 117/61 (79) 100 09/02/19 16:00 82 09/02/19 16:00 98.5 84 35 117/61 (79) 100 09/02/19 16:00 117/61 09/02/19 16:00 Mechanical Ventilator 09/02/19 16:00 60 09/02/19 15:30 81 35 123/56 (78) 100 09/02/19 15:18 79 09/02/19 15:00 131/63 09/02/19 15:00 80 37 100 09/02/19 15:00 81 28 131/63 (85) 100 09/02/19 14:45 81 34 121/55 (77) 100 09/02/19 14:30 86 30 124/54 (77) 100 09/02/19 14:15 87 26 125/56 (79) 99 09/02/19 14:00 118/54 09/02/19 14:00 85 25 118/54 (75) 100 09/02/19 13:30 76 26 123/45 (71) 100 09/02/19 13:15 79 33 106/63 (77) 100 09/02/19 13:00 116/50 09/02/19 13:00 76 30 116/50 (72) 100 09/02/19 12:30 77 30 117/50 (72) 100 09/02/19 12:15 84 38 127/49 (75) 100 09/02/19 12:00 60 09/02/19 12:00 117/54 09/02/19 12:00 Mechanical Ventilator 09/02/19 12:00 97.5 79 30 117/54 (75) 100 09/02/19 12:00 81 09/02/19 11:45 80 28 124/53 (76) 99 09/02/19 11:30 82 37 121/54 (76) 99 Height (Feet): 5 Height (Inches): 10.00 Weight (Pounds): 242 HEENT: mucous membranes moist, status post trach, other - can note close eyes Respiratory/Chest: crackles/rales, other - on ventilator Cardiovascular: tachycardia, other - Left armPICC line Abdomen: soft, non tender, other - GT Extremities: other - generalized edema Laboratory Tests Test 09/02/19 13:12 09/02/19 17:28 09/03/19 01:18 09/03/19 04:08 Arterial Blood pH 7.259 (7.350-7.450) 7.047 (7.350-7.450) Arterial Blood Partial Pressure CO2 33.3 mmHg (35.0-45.0) L 49.9 mmHg (35.0-45.0) H Arterial Blood Partial Pressure O2 82.3 mmHg (75.0-100.0) 62.6 mmHg (75.0-100.0) L Arterial Blood HCO3 14.6 mmol/L (22.0-26.0) *L 13.4 mmol/L (22.0-26.0) *L Arterial Blood Oxygen Saturation 94.9 % (95-100) L 85.4 % (95-100) *L Arterial Blood Base Excess -11.4 (-2-2) *L -16.7 (-2-2) *L Álvaro Test Positive Positive Urine Random Sodium 28 mmol/L (20-110) Urine Creatinine 111.7 MG/DL (30.0-125.0) Sodium Level 130 MMOL/L (136-145) L Potassium Level 4.1 MMOL/L (3.5-5.1) Chloride Level 96 MMOL/L (98-107) L Carbon Dioxide Level 18 MMOL/L (21-32) L Anion Gap 16 mmol/L (5-15) H Blood Urea Nitrogen 90 mg/dL (7-18) H Creatinine 6.4 MG/DL (0.55-1.30) H Estimat Glomerular Filtration Rate 10.4 mL/min (>60) Glucose Level 160 MG/DL (74-106) H Uric Acid 8.4 MG/DL (2.6-7.2) H Calcium Level 7.0 MG/DL (8.5-10.1) L Total Bilirubin 1.5 MG/DL (0.2-1.0) H Direct Bilirubin 1.0 MG/DL (0.0-0.3) H Aspartate Amino Transf (AST/SGOT) 55 U/L (15-37) H Alanine Aminotransferase (ALT/SGPT) 79 U/L (12-78) H Alkaline Phosphatase 146 U/L (46-116) H Total Creatine Kinase 164 U/L (26-308) Total Protein 5.5 G/DL (6.4-8.2) L Albumin 0.9 G/DL (3.4-5.0) L Globulin 4.6 g/dL Albumin/Globulin Ratio 0.2 (1.0-2.7) L Test 09/03/19 08:45 Arterial Blood pH 7.152 (7.350-7.450) Arterial Blood Partial Pressure CO2 52.6 mmHg (35.0-45.0) H Arterial Blood Partial Pressure O2 56.7 mmHg (75.0-100.0) L Arterial Blood HCO3 18.0 mmol/L (22.0-26.0) L Arterial Blood Oxygen Saturation 86.1 % (95-100) *L Arterial Blood Base Excess -10.7 (-2-2) *L Álvaro Test Positive Current Medications Medications (Trade) Dose Ordered Sig/Nury Route PRN Reason Start Time Stop Time Status Last Admin Dose Admin Acetaminophen (Tylenol) 325 mg Q6H PRN RECTAL Temp >100.5 08/28/19 03:45 09/07/19 21:44 Acetaminophen (Tylenol) 650 mg Q4H PRN GT Temp >100.5 08/28/19 06:45 09/07/19 10:44 09/01/19 01:41 Acetaminophen (Tylenol) 650 mg Q4H PRN GT Mild Pain (Pain Scale 1-3) 08/28/19 06:45 09/07/19 10:44 09/01/19 17:57 Amantadine HCl (Symmetrel) 100 mg DAILY GT 08/28/19 09:00 09/08/19 08:59 Future Hold 09/02/19 08:45 Ascorbic Acid (Vitamin C) 250 mg DAILY GT 08/28/19 09:00 09/08/19 08:59 09/03/19 08:06 Barium Sulfate (Readi-Cat 2) 450 ml NOW PRN ORAL Radiology Procedure 09/02/19 09:45 09/04/19 09:33 Chlorhexidine Gluconate (Milagros-Hex 2%) 1 applic DAILY@1999 TOPIC 08/28/19 20:00 11/26/19 19:59 09/02/19 21:12 Folic Acid (Folate) 1 mg DAILY GT 08/28/19 09:00 09/07/19 14:29 09/03/19 08:07 Heparin Sodium (Porcine) (Heparin 5000 units/ml) 5,000 units EVERY 12 HOURS SUBQ 08/28/19 21:00 10/12/19 20:59 09/02/19 21:13 Hydralazine HCl (Apresoline) 10 mg Q6H PRN GT SBP above 160 08/28/19 04:00 11/26/19 03:59 Hydralazine HCl (Apresoline) 10 mg Q6H PRN IV SBP> 160 08/28/19 03:45 11/06/19 21:44 08/28/19 15:23 Iohexol (OMNIPAQUE-300 100ml) 100 ml NOW PRN INJ Radiology Procedure 09/02/19 09:45 09/04/19 09:33 Lorazepam (Ativan 2mg/ml 1ml) 1 mg Q2H PRN IV For Anxiety 08/28/19 18:20 09/04/19 18:19 08/28/19 18:30 Meropenem 500 mg/ Sodium Chloride 55 ml @ 110 mls/hr Q24H IVPB 09/03/19 11:00 09/08/19 10:59 09/03/19 10:58 Metoclopramide HCl (Reglan) 5 mg Q8HR IVP 09/01/19 14:33 10/01/19 14:32 09/03/19 05:31 Metoprolol Tartrate (Lopressor) 50 mg Q12HR GT 08/28/19 09:00 11/24/19 08:59 09/02/19 08:44 Multivitamins (Multivitamins) 1 tab DAILY GT 08/28/19 09:00 09/08/19 08:59 09/03/19 08:07 Norepinephrine Bitartrate 8 mg/ Dextrose 508 ml @ 0 mls/hr Q24H IV 09/01/19 00:30 10/01/19 00:29 09/03/19 05:31 Pantoprazole (Protonix) 40 mg DAILY IVP 08/29/19 09:00 09/08/19 22:59 09/03/19 08:06 Phenylephrine HCl 50 mg/Dextrose 250 ml @ 0 mls/hr Q24H PRN IV For hypotension 09/02/19 10:30 10/02/19 10:29 Sodium Bicarbonate 100 ml/Dextrose 1,100 ml @ 200 mls/hr Q5H30M IV 09/02/19 14:00 10/02/19 13:59 09/03/19 06:39 Vancomycin HCl (Firvanq) 125 mg FOUR TIMES A DAY GT 09/02/19 13:00 09/04/19 12:59 09/03/19 08:07 Issa Snow MD Sep 03, 2019 11:24
--- NOTE | 2019-09-03 12:46 | NUR ---
NURSE NOTES: Patient's desaturated to 60%. Suctioned patient and called RT. Began bagging patient, O2 Saturation at 60%. Blood pressure decreased to 70 systolic, Levophed placed on 30mcg/min, PRN Phenylephrine started. Latest blood pressure 96/50. Will continue to monitor.
--- NOTE | 2019-09-03 13:11 | General Progress Note ---
Assessment/Plan Assessment/Plan: Assessment - Arterial GT site bleeding --> now with GT site infection - sepsis, shock - abnormal LFT, presumed due to sepsis - Thrombocytopenia, ?DIC - renal failure, oliguric - GA - afib - Anemia - C difficile - on GT and IV Rx - Ileus / abd distention - ? ileus, ? C Diff megacolon, ? intra-abd infection - GT migration - removed --> site healed and closed - OB (+) stools - due to ulcerative gastritis, no colonoscopy per DPOA - s/p Trach - poor prognosis Recommendations - PPI - transfuse PRN - abx - pressors - CT abd / pelvis when feasible - abx per ID - follow exam and labs - surgical wound follow up - supportive care Subjective Allergies: Coded Allergies: No Known Allergies (Unverified , 08/07/19) Subjective Above noted patient seen in ICU doing poorly d/w RN CT ordered,but still not stable for transport Oliguric Objective Last 24 Hour Vital Signs Date Time Temp Pulse Resp B/P (MAP) Pulse Ox O2 Delivery O2 Flow Rate FiO2 09/03/19 12:45 128 95/54 09/03/19 12:00 98.1 131 35 102/51 (68) 84 09/03/19 12:00 Mechanical Ventilator 09/03/19 12:00 102/51 09/03/19 12:00 100 09/03/19 11:30 134 39 92/51 (65) 93 09/03/19 11:09 112 39 100 09/03/19 11:00 102/50 09/03/19 11:00 133 41 102/50 (67) 93 09/03/19 10:30 134 39 103/49 (67) 92 09/03/19 10:00 113 38 116/51 (72) 92 09/03/19 10:00 116/51 09/03/19 09:30 122 38 112/53 (72) 93 09/03/19 09:00 110/46 09/03/19 09:00 97 37 110/46 (67) 91 09/03/19 08:30 92 38 120/53 (75) 91 09/03/19 08:28 126 09/03/19 08:07 85 123/48 09/03/19 08:00 98.1 95 36 123/48 (73) 91 09/03/19 08:00 100 7/5/20 08:00 123/48 09/03/19 08:00 Mechanical Ventilator 09/03/19 07:30 95 32 115/39 (64) 94 09/03/19 07:04 91 36 100 09/03/19 07:00 96 30 104/52 (69) 94 09/03/19 07:00 104/52 09/03/19 06:00 105/46 09/03/19 06:00 90 27 109/46 (67) 93 09/03/19 05:43 104/49 09/03/19 05:31 119/49 09/03/19 05:30 95 35 104/49 (67) 94 09/03/19 05:15 94 33 104/50 (68) 93 09/03/19 05:00 91 34 110/47 (68) 94 09/03/19 04:45 92 34 118/46 (70) 94 09/03/19 04:30 93 29 111/47 (68) 94 09/03/19 04:15 106 30 121/51 (74) 93 09/03/19 04:00 119/49 09/03/19 04:00 99.2 98 31 107/50 (69) 95 09/03/19 04:00 Mechanical Ventilator 09/03/19 04:00 100 09/03/19 03:45 94 31 116/49 (71) 95 09/03/19 03:41 91 33 70 09/03/19 03:30 96 31 116/46 (69) 95 09/03/19 03:15 94 32 125/48 (73) 95 09/03/19 03:04 125 09/03/19 03:00 91 31 128/66 (86) 94 09/03/19 03:00 128/66 09/03/19 02:45 96 29 126/48 (74) 90 09/03/19 02:30 99 26 138/52 (80) 86 09/03/19 02:15 98 23 125/106 (112) 88 09/03/19 02:00 140/118 09/03/19 02:00 107 29 140/118 (125) 94 09/03/19 01:45 98 36 121/94 (103) 98 09/03/19 01:30 119 31 112/59 (76) 93 09/03/19 01:15 126 30 124/54 (77) 94 09/03/19 01:11 86 26 111/53 (72) 62 09/03/19 01:06 68 30 60/43 (49) 62 09/03/19 01:03 66 29 78/41 (53) 71 09/03/19 01:00 69 32 72/31 (45) 71 09/03/19 01:00 60/19 09/03/19 00:45 91 31 90/41 (57) 92 09/03/19 00:45 72/22 09/03/19 00:30 91 31 96/44 (61) 93 09/03/19 00:15 98 28 104/73 (83) 92 09/03/19 00:00 Mechanical Ventilator 09/03/19 00:00 98.4 90 24 111/44 (66) 89 09/03/19 00:00 100 09/02/19 23:59 95/35 09/02/19 23:50 89 22 95/35 (55) 77 09/02/19 23:47 108 29 79/32 (48) 82 09/02/19 23:45 88 27 61/16 (31) 80 09/02/19 23:45 69/19 09/02/19 23:30 92 28 91/24 (46) 94 09/02/19 23:30 79/29 09/02/19 23:15 85 36 90/46 (61) 95 09/02/19 23:08 96 36 70 09/02/19 23:06 87 31 91/31 (51) 97 09/02/19 23:04 85 09/02/19 23:00 90/51 09/02/19 23:00 86 23 98/48 (65) 95 09/02/19 22:47 85 28 93/46 (62) 96 09/02/19 22:45 84 32 87/34 (51) 96 09/02/19 22:30 101 36 92/56 (68) 97 09/02/19 22:00 99/53 09/02/19 22:00 89 39 91/42 (58) 98 09/02/19 21:30 92 34 96/49 (65) 97 09/02/19 21:00 99/46 09/02/19 21:00 84 89/46 09/02/19 21:00 94 35 99/46 (63) 97 09/02/19 20:30 87 39 109/57 (74) 95 09/02/19 20:00 97.8 89 34 110/49 (69) 99 09/02/19 20:00 Mechanical Ventilator 09/02/19 20:00 110/49 09/02/19 20:00 80 09/02/19 19:30 84 37 108/46 (66) 98 09/02/19 19:25 82 09/02/19 19:00 89 34 106/55 (72) 100 09/02/19 19:00 106/55 09/02/19 18:52 87 33 100 09/02/19 18:30 85 34 105/46 (65) 100 09/02/19 18:00 97 30 106/62 (77) 100 09/02/19 18:00 106/62 09/02/19 17:30 87 31 121/47 (71) 100 09/02/19 17:00 81 33 119/88 (98) 98 09/02/19 17:00 119/88 09/02/19 16:30 87 35 125/56 (79) 99 09/02/19 16:09 82 36 117/61 (79) 100 09/02/19 16:00 82 09/02/19 16:00 98.5 84 35 117/61 (79) 100 09/02/19 16:00 117/61 09/02/19 16:00 Mechanical Ventilator 09/02/19 16:00 60 09/02/19 15:30 81 35 123/56 (78) 100 09/02/19 15:18 79 09/02/19 15:00 131/63 09/02/19 15:00 80 37 100 09/02/19 15:00 81 28 131/63 (85) 100 09/02/19 14:45 81 34 121/55 (77) 100 09/02/19 14:30 86 30 124/54 (77) 100 09/02/19 14:15 87 26 125/56 (79) 99 09/02/19 14:00 118/54 09/02/19 14:00 85 25 118/54 (75) 100 09/02/19 13:30 76 26 123/45 (71) 100 09/02/19 13:15 79 33 106/63 (77) 100 Intake and Output 09/02/19 09/03/19 19:00 07:00 Intake Total 1558.13 ml 3910.868 ml Output Total 55 ml 125 ml Balance 1503.13 ml 3785.868 ml Free Water 50 ml IV Total 1518.13 ml 3490.868 ml Tube Feeding 40 ml 370 ml Output Urine Total 55 ml 75 ml Stool Total 50 ml Laboratory Tests 09/02/19 13:12: Arterial Blood pH 7.259L, Arterial Blood Partial Pressure CO2 33.3L, Arterial Blood Partial Pressure O2 82.3, Arterial Blood HCO3 14.6*L, Arterial Blood Oxygen Saturation 94.9L, Arterial Blood Base Excess -11.4*L, Álvaro Test Positive 09/02/19 17:28: Urine Random Sodium 28, Urine Creatinine 111.7 09/03/19 01:18: Arterial Blood pH 7.047*L, Arterial Blood Partial Pressure CO2 49.9H, Arterial Blood Partial Pressure O2 62.6L, Arterial Blood HCO3 13.4*L, Arterial Blood Oxygen Saturation 85.4*L, Arterial Blood Base Excess -16.7*L, Álvaro Test Positive 09/03/19 04:08: Sodium Level 130L, Potassium Level 4.1, Chloride Level 96L, Carbon Dioxide Level 18L, Anion Gap 16H, Blood Urea Nitrogen 90H, Creatinine 6.4H, Estimat Glomerular Filtration Rate 10.4, Glucose Level 160H, Uric Acid 8.4H, Calcium Level 7.0L, Total Bilirubin 1.5H, Direct Bilirubin 1.0H, Aspartate Amino Transf (AST/SGOT) 55H, Alanine Aminotransferase (ALT/SGPT) 79H, Alkaline Phosphatase 146H, Total Creatine Kinase 164, Total Protein 5.5L, Albumin 0.9L, Globulin 4.6 , Albumin/Globulin Ratio 0.2L 09/03/19 08:45: Arterial Blood pH 7.152*L, Arterial Blood Partial Pressure CO2 52.6H, Arterial Blood Partial Pressure O2 56.7L, Arterial Blood HCO3 18.0L, Arterial Blood Oxygen Saturation 86.1*L, Arterial Blood Base Excess -10.7*L, Álvaro Test Positive Height (Feet): 5 Height (Inches): 10.00 Weight (Pounds): 242 Objective Obese AA Man NCAT (+) Trach coarse BS RR Abd soft but mod distended, Healing prior GT site,(+) brown discharge around new GT site (+) edema non interactive Rubia Hawk MD Sep 03, 2019 13:11
--- NOTE | 2019-09-03 13:12 | NUR ---
CASE MANAGEMENT:REVIEW 09/03/19 SI: S/P CODE BLUE 09/03/19 AMI. SEPSIS SHOCK . PNA. PAFIB. GTUBE INFECTION . RENAL FAILURE 98.1 131 35 102/51 84% ON MECH VENT FIO2 100 TROP 6.707 WBC 15.0 PLT 76 NA+130 CO2 18 BUN/CREAT 90/6.4 BG 160 URIC ACID 8.4 CA+ 7.0 T.SAROJ/D.SAROJ 1.5/1.0 AST/ALT 55/79 ALKP 146 ALB 0.9 ABG: pH 7.152 pCO2 52.6 pO2 56.7 HCO3 18 O2 SAT 86.1 BE -10.7 IS: IV LEVOPHED Q24HR IV MEROPENEM QD IV NA BICARB @200ML/HR IV PHENYLEPHRINE Q24HR IV PROTONIX QD IVF@50/HR HEPARIN SUBQ Q12H LOPRESSOR GT Q12H : ICU STATUS [facility] PLAN: CONT RESP CARE S/P CODE BLUE AM LABS
--- NOTE | 2019-09-03 13:30 | NUR ---
*-* INSURANCE *-* UPDATED CLINICALS HAVE BEEN FAXED TO: [facility] CM:RYANNE F: [phone] REF#[id number]
--- NOTE | 2019-09-03 13:56 | NUR ---
CODE BLUE: Patient was noted to have agonal breathing. Patient's desaturated to 60%. Paient was aggressively suctioned and RT was called. RN and auto accessories installer and primary RN began bagging patient with no improvement, O2 Saturation improvement remained at 60%. Blood pressure decreased to 70 systolic, Levophed was increased to 30mcg/min to sustain hemodynamic stability. PRN Phenylephrine started. Patient's rhythm became Ventricular Tachycardia on the heart monitor and was pulseless, first Code Blue was initiated at 1259. Patient was defibrillated at 150 joules, compressions started, epinephrine given @ 1300 via LATOYA PICC, and 1301 ROSC achieved with idioventricular rhythm noted. Patient remained with agonal breathing. 1343 Patient went bradycardic, consequently pulseless and compressions began, Patient's O2 saturation at 70% with no improvement after interventions to increase O2 Sat, code blue was initiated for the 2nd time. Epinephrine given @ 1344, @ 1346 Rhythm was checked and PEA was noted with no pulse found. Compressions resumed and second Epinephrine given @ 1349. ER MD ordered Sodium Bicarbonate IVP and Calcium Chloride at 1350. Rhythm check again and PEA noted. The third and Epinephrine was given while compressions restarted, 1354 rhythm check and PEA compressions continued, 1356 rhythm was checked again, patient remained pulseless. Patient was pronounced by ED Dr. Zhang. See Code sheet which remains on paper.
[2019-09-03] MEDS ORDERED: Sodium Bicarbonate 100 ML in D5W 1000ml 1,000 ML IV SCH (14:00)
--- NOTE | 2019-09-03 14:55 | Emergency Room Report ---
History of Present Illness General Chief Complaint: Abnormal Labs Source: Medical Record, PMD Present Illness Allergies: Coded Allergies: No Known Allergies (Unverified , 08/07/19) COVID-19 Screening Contact w/high risk pt: Yes Recent Travel to affected area: No Experienced COVID-19 symptoms?: No COVID-19 symptoms experienced: Shortness of Breath COVID-19 Testing performed DERMATOLOGY PHYSICIAN: Yes COVID-19 Screening: Negative COVID-19 COVID-19 Testing Source: 07/21/19 Nursing Documentation-PMH Hx COPD: Yes - respiratory failure Hx Gastrointestinal Problems: Yes - enterocolitits Hx Dialysis: No - ckd Hx Neurological Problems: Yes - Intracranial Hemmorhage Hx Cerebrovascular Accident: Yes - intracerebral hemorrhage Physical Exam Vital Signs Date Time Temp Pulse Resp B/P (MAP) Pulse Ox O2 Delivery O2 Flow Rate FiO2 08/30/19 07:00 91 30 122/21 (54) 100 08/30/19 07:16 100 08/30/19 08:00 98.2 08/30/19 08:00 Mechanical Ventilator 08/30/19 20:00 100.0 Procedures Critical Care Time Critical Care Time i. I feel this is a highly complex case requiring extensive working including EKG/Rhythm strip, Xray/CT/US, Blood/urine lab work, repeat exams while in ED, and administration of strong opiates/narcotics for pain control, admission to hospital or close patient follow up. Total time: 60 min bedside evaluation and treatment excludes procedures (EKG). Reason for critical care: cardiac arrest Possible complications: hypotension, hypertension, VA, shock, arrhythmias, metabolic acidosis, end organ damage, respiratory failure. Interventions: chest compressions, ACLS, defibrillation, calcium, bicarbonate. Course: patient in cardiac arrest. on ventilator. compressions started. episode of Vtach and shocked. returned pulses. Patient had second CODE BLUE. After multiple chest compressions and medications patient remains in PEA. Prognosis poor. Resuscitative efforts terminated. Patient expires Consultations: nursing staff, EMS, family Performed by: Dr Taylor Tolerated well condition = j. because of unstable vital signs this patient had a condition that could potentially threaten life or limb. I feel this is a critical patient who required my full attention while patient was considered critical. Total Critical Care Time excluding procedures was greater than 60 minutes CPR/Code Blue CPR/Code Blue Narrative see code blue sheet for full narrative Medical Decision Making Diagnostic Impression: Primary Impression: Cardiopulmonary arrest Additional Impression: Bilateral pneumonia Qualified Codes: J18.9 - Pneumonia, unspecified organism ER Course Was called to the ICU for this CODE BLUE. Trach/vent. Severe renal disease. Multiple comorbidities. Patient given epinephrine. Chest compressions. Shocked x1 with V. fib and regained pulses. I spoke to granddaughter on the phone and she is aware of patient's poor prognosis. Shortly after patient coded again. Given calcium and bicarbonate. Multiple rounds of epinephrine and chest compressions. Patient has had multiple codes in the last few days. Prognosis is poor. Patient remains in PEA. Resuscitative efforts terminated. Patient expires. Last Vital Signs Date Time Temp Pulse Resp B/P (MAP) Pulse Ox O2 Delivery O2 Flow Rate FiO2 09/03/19 13:45 74 24 59/24 (36) 67 09/03/19 12:00 98.1 09/03/19 12:00 Mechanical Ventilator 09/03/19 12:00 100 09/01/19 04:00 80.0 Status: worsened Disposition: Condition: Referrals: Isaiah Hurt MD (PCP) Chilo Taylor MD Sep 03, 2019 14:55
--- NOTE | 2019-09-03 16:57 | Nephrology Progress Note ---
Assessment/Plan Problem List: (1) Respiratory failure (2) Malnutrition of moderate degree (3) LEAH (acute kidney injury) (4) Cardiopulmonary arrest (5) Acute HI Plan prerenal indices, hydrate , poor prognosis Subjective ROS Limited/Unobtainable: Yes Objective Objective Last 24 Hour Vital Signs Date Time Temp Pulse Resp B/P (MAP) Pulse Ox O2 Delivery O2 Flow Rate FiO2 09/03/19 13:45 74 24 59/24 (36) 67 09/03/19 13:41 50/29 09/03/19 13:37 60 23 50/29 (36) 09/03/19 13:30 92 33 60/38 (45) 63 09/03/19 13:15 124 28 108/64 (79) 63 09/03/19 13:00 112 37 159/73 (101) 70 09/03/19 12:45 128 95/54 09/03/19 12:45 123 31 96/50 (65) 62 09/03/19 12:30 116 27 63/36 (45) 68 09/03/19 12:30 63/36 09/03/19 12:00 98.1 131 35 102/51 (68) 84 09/03/19 12:00 Mechanical Ventilator 09/03/19 12:00 102/51 09/03/19 12:00 100 09/03/19 11:30 134 39 92/51 (65) 93 09/03/19 11:09 112 39 100 09/03/19 11:00 102/50 09/03/19 11:00 133 41 102/50 (67) 93 09/03/19 10:30 134 39 103/49 (67) 92 09/03/19 10:00 113 38 116/51 (72) 92 09/03/19 10:00 116/51 09/03/19 09:30 122 38 112/53 (72) 93 09/03/19 09:00 110/46 09/03/19 09:00 97 37 110/46 (67) 91 09/03/19 08:30 92 38 120/53 (75) 91 09/03/19 08:28 126 09/03/19 08:07 85 123/48 09/03/19 08:00 98.1 95 36 123/48 (73) 91 09/03/19 08:00 100 09/03/19 08:00 123/48 7/5/20 08:00 Mechanical Ventilator 09/03/19 07:30 95 32 115/39 (64) 94 09/03/19 07:04 91 36 100 09/03/19 07:00 96 30 104/52 (69) 94 09/03/19 07:00 104/52 09/03/19 06:00 105/46 09/03/19 06:00 90 27 109/46 (67) 93 09/03/19 05:43 104/49 09/03/19 05:31 119/49 09/03/19 05:30 95 35 104/49 (67) 94 09/03/19 05:15 94 33 104/50 (68) 93 09/03/19 05:00 91 34 110/47 (68) 94 09/03/19 04:45 92 34 118/46 (70) 94 09/03/19 04:30 93 29 111/47 (68) 94 09/03/19 04:15 106 30 121/51 (74) 93 09/03/19 04:00 119/49 09/03/19 04:00 99.2 98 31 107/50 (69) 95 09/03/19 04:00 Mechanical Ventilator 09/03/19 04:00 100 09/03/19 03:45 94 31 116/49 (71) 95 09/03/19 03:41 91 33 70 09/03/19 03:30 96 31 116/46 (69) 95 09/03/19 03:15 94 32 125/48 (73) 95 09/03/19 03:04 125 09/03/19 03:00 91 31 128/66 (86) 94 09/03/19 03:00 128/66 09/03/19 02:45 96 29 126/48 (74) 90 09/03/19 02:30 99 26 138/52 (80) 86 09/03/19 02:15 98 23 125/106 (112) 88 09/03/19 02:00 140/118 09/03/19 02:00 107 29 140/118 (125) 94 09/03/19 01:45 98 36 121/94 (103) 98 09/03/19 01:30 119 31 112/59 (76) 93 09/03/19 01:15 126 30 124/54 (77) 94 09/03/19 01:11 86 26 111/53 (72) 62 09/03/19 01:06 68 30 60/43 (49) 62 09/03/19 01:03 66 29 78/41 (53) 71 09/03/19 01:00 69 32 72/31 (45) 71 09/03/19 01:00 60/19 09/03/19 00:45 91 31 90/41 (57) 92 09/03/19 00:45 72/22 09/03/19 00:30 91 31 96/44 (61) 93 09/03/19 00:15 98 28 104/73 (83) 92 09/03/19 00:00 Mechanical Ventilator 09/03/19 00:00 98.4 90 24 111/44 (66) 89 09/03/19 00:00 100 09/02/19 23:59 95/35 09/02/19 23:50 89 22 95/35 (55) 77 09/02/19 23:47 108 29 79/32 (48) 82 09/02/19 23:45 88 27 61/16 (31) 80 09/02/19 23:45 69/19 09/02/19 23:30 92 28 91/24 (46) 94 09/02/19 23:30 79/29 09/02/19 23:15 85 36 90/46 (61) 95 09/02/19 23:08 96 36 70 09/02/19 23:06 87 31 91/31 (51) 97 09/02/19 23:04 85 09/02/19 23:00 90/51 09/02/19 23:00 86 23 98/48 (65) 95 09/02/19 22:47 85 28 93/46 (62) 96 09/02/19 22:45 84 32 87/34 (51) 96 09/02/19 22:30 101 36 92/56 (68) 97 09/02/19 22:00 99/53 09/02/19 22:00 89 39 91/42 (58) 98 09/02/19 21:30 92 34 96/49 (65) 97 09/02/19 21:00 99/46 09/02/19 21:00 84 89/46 09/02/19 21:00 94 35 99/46 (63) 97 09/02/19 20:30 87 39 109/57 (74) 95 09/02/19 20:00 97.8 89 34 110/49 (69) 99 09/02/19 20:00 Mechanical Ventilator 09/02/19 20:00 110/49 09/02/19 20:00 80 09/02/19 19:30 84 37 108/46 (66) 98 09/02/19 19:25 82 09/02/19 19:00 89 34 106/55 (72) 100 09/02/19 19:00 106/55 09/02/19 18:52 87 33 100 09/02/19 18:30 85 34 105/46 (65) 100 09/02/19 18:00 97 30 106/62 (77) 100 09/02/19 18:00 106/62 09/02/19 17:30 87 31 121/47 (71) 100 09/02/19 17:00 81 33 119/88 (98) 98 09/02/19 17:00 119/88 Intake and Output 09/02/19 09/03/19 19:00 07:00 Intake Total 1558.13 ml 3910.868 ml Output Total 55 ml 125 ml Balance 1503.13 ml 3785.868 ml Free Water 50 ml IV Total 1518.13 ml 3490.868 ml Tube Feeding 40 ml 370 ml Output Urine Total 55 ml 75 ml Stool Total 50 ml Laboratory Tests 09/02/19 17:28: Urine Random Sodium 28, Urine Creatinine 111.7 09/03/19 01:18: Arterial Blood pH 7.047*L, Arterial Blood Partial Pressure CO2 49.9H, Arterial Blood Partial Pressure O2 62.6L, Arterial Blood HCO3 13.4*L, Arterial Blood Oxygen Saturation 85.4*L, Arterial Blood Base Excess -16.7*L, Álvaro Test Positive 09/03/19 04:08: Sodium Level 130L, Potassium Level 4.1, Chloride Level 96L, Carbon Dioxide Level 18L, Anion Gap 16H, Blood Urea Nitrogen 90H, Creatinine 6.4H, Estimat Glomerular Filtration Rate 10.4, Glucose Level 160H, Uric Acid 8.4H, Calcium Level 7.0L, Total Bilirubin 1.5H, Direct Bilirubin 1.0H, Aspartate Amino Transf (AST/SGOT) 55H, Alanine Aminotransferase (ALT/SGPT) 79H, Alkaline Phosphatase 146H, Total Creatine Kinase 164, Total Protein 5.5L, Albumin 0.9L, Globulin 4.6 , Albumin/Globulin Ratio 0.2L 09/03/19 08:45: Arterial Blood pH 7.152*L, Arterial Blood Partial Pressure CO2 52.6H, Arterial Blood Partial Pressure O2 56.7L, Arterial Blood HCO3 18.0L, Arterial Blood Oxygen Saturation 86.1*L, Arterial Blood Base Excess -10.7*L, Álvaro Test Positive Height (Feet): 5 Height (Inches): 10.00 Weight (Pounds): 242 General Appearance: other - on vent Cardiovascular: regular rhythm Respiratory/Chest: lungs clear Abdomen: soft Genitourinary/Rectal: other - scotal edema Extremities: moderate edema Neurologic: unresponsive Leo Rausch MD Sep 03, 2019 16:57
[2019-09-03] MEDS ORDERED: Sodium Bicarbonate 8.4% 50ml Inj ONE (17:59)
[2019-09-03] MEDS ORDERED: Calcium Chloride 10% 10ml carpuject IVP ONE (17:59)
--- NOTE | 2019-09-04 03:59 | Progress Note ---
DATE: 09/03/2019 CARDIOLOGY PROGRESS NOTE SUBJECTIVE: Condition remains critical. Prognosis guarded. The patient is remaining hypotensive on pressors and on full ventilator support. Multiple pathogens have been isolated in the blood, urine, and sputum. OBJECTIVE: LUNGS: Bilateral breath sounds. Rhonchi. 1+ edema. CARDIAC: Irregularly irregular rhythm. Normal S1, S2. Poorly responsive. LABORATORY DATA: His sodium 130, potassium 4.1, bicarb 18, BUN 90, creatinine 6.4. Troponin yesterday was 6.7. ABG this morning, 7.15, 52, 56. IMPRESSION: 1. Polymicrobial sepsis. 2. Shock. 3. Respiratory failure. 4. Healthcare-associated pneumonia. 5. Respiratory acidosis. 6. Metabolic acidosis. 7. Acute myocardial infarction. 8. Shock due to sepsis. PLAN: 1. Family aware of critical condition. 2. Daughter and son have visited. 3. Continue pressors, ventilator support. 4. Broad-spectrum antimicrobials. 5. Volume support. 6. Stress ulcer prophylaxis. Augustine Fisher M.D. DR: SANTI JOB#: [id number] CC:
--- NOTE | 2019-09-04 10:23 | NUR ---
*-* INSURANCE *-* UPDATED CLINICALS HAVE BEEN FAXED (NO DISCHARGE SUM IN THE SYSTEM) TO: [facility] CM:RYANNE F: [phone] REF#[id number]
--- NOTE | 2019-09-04 16:04 | Discharge Summary ---
Discharge Summary Discharge Summary _ SUMMARY DATE OF ADMISSION: 08/07/2019 DATE OF EXPIRATION: 09/03/2019 REASON FOR ADMISSION: 74 years old male with past medical history of chronic respiratory failure, tracheostomy status, ventilator dependent, dysphagia, feeding by G-tube, chronic encephalopathy, anemia, history of intracerebral hemorrhage, presented to ED due to anemia and generalized weakness. According to group home notes, patient's last hemoglobin was 7. Patient demonstrated decreased appetite and mentation. No reported fever and chills. No nausea no vomiting. No chest pain. Upon evaluation patient had low-grade fever. Laboratory work-up revealed leukocytosis WBC 11.2. Hemoglobin 7.6, hematocrit 25. Platelet count 298. ABG on current settings initially was stable. Sodium 134, chloride 94. BUN 20, creatinine 1.0. Stable LFT. Albumin 2.0. Lactic acid 1.0. Troponin negative. EKG revealed sinus rhythm, no acute ischemic changes. Chest x-ray demonstrated no definite acute abnormality. Evidence of old granulomatous disease. Urinalysis revealed no evidence of urinary tract infection. Patient was swabbed for COVID-19 and subsequently admitted to [facility] for further management. CONSULTANTS: leasing manager Dr. Fisher ID specialist Dr. Ochoa GI specialist Dr. Hawk yield improvement engineer Dr. Jansen [facility]maru [facility] COURSE: Patient admitted to [facility]. Ventilator support and tracheostomy care provided. Pulmonary toilet provided. Venous duplex bilateral lower extremity revealed no evidence of acute DVT. Patient started on empiric antibiotics. Patient was transfused with total of 8 units of packed red blood cells while in the hospital. Apparently G-tube was migrated out of the stomach and subsequently was removed by GI specialist. Patient developed fever , tachycardia , leukocytosis, elevated CRP. NG tube inserted for nutritional support. Antibiotics continued. Patient started on NG tube feeding with strict aspiration / reflux precaution along with PPI every [address] scan of the abdomen pelvis was done on 08/10 to evaluate for any abscess, which revealed severe colonic diverticulosis within the sigmoid colon with mural hypertrophy; however no surrounding inflammatory changes to suggest acute diverticulitis. Underlying malignancy was not excluded. Tract from a recent percutaneous gastrostomy tube noted, which was healing in the subcutaneous fat. Surrounding inflammatory changes noted, but no abscess. Plan was to get endoscopy initially without replacement of G-tube until the inflammatory changes in the area resolved, and then to have another endoscopy after inflammatory changes resolved. Echocardiogram demonstrated ejection fraction of 60 to 65%. No evidence of left ventricular hypertrophy. No evidence of pericardial effusion. Right ventricular systolic pressure of 46, consistent with a moderate pulmonary hypertension . Patient was kept n.p.o. and continued on gentle hydration. Antihypertensive therapy was decreased . Patient noted to have paroxysmal atrial and supraventricular tachyarrhythmia along with the episode of asymptomatic bradycardia likely due to sinus node disease. Excessive medications with negative chronotropic potential were avoided. No antiarrhythmic were indicated for paroxysmal atrial ectopy as per leasing manager. Clonidine was discontinued. Beta-albaro was continued, but titrated. Volume status and cardiorenal parameters were closely monitored Internet Application Developer cleared patient for G-tube revision, presumed migration. Patient undergone upper endoscopy with biopsy and examination under anesthesia on 08/17. During the examination found significant purulent drainage from the gastrostomy site. Ulcerative gastritis without active bleeding noted. Gastrostomy placement was not attempted given significant amount of purulent drainage. NG tube feeding resumed . Aggressive wound care continued along with IV antibiotics. Patient was reevaluated for gastrostomy tube placement next week. Patient subsequently undergone on 08/21 another upper endoscopy , which still revealed erosive and ulcerative gastritis, but with dramatic improvement, no active bleeding. G tube was successfully placed at this time. Tube feeding with tube feeding formula, goal rate and protein supplements provided as per registered physical therapist recommendations. G-tube site care provided. Strict aspiration /reflux precautions maintained. Pathology of gastric antrum revealed benign antral mucosa with mild reactive gastropathy , no other significant histopathological abnormality. Wound care provided for G tube site cellulitis Hemoglobin and hematocrit were closely monitored with goal to keep hemoglobin above 7. Stool for occult blood was positive. Oral iron was discontinued , and patient started on IV Venofer. Bowel regimen instituted. PPI twice a day provided. Antibiotic provided as per ID specialist recommendation. Blood cultures were negative. COVID-19 by PCR on 08/06 and 08/08 was not detected. Sputum culture revealed Providencia and Pseudomonas, and later Klebsiella ESBL. Wound culture revealed Klebsiella ESBL, Pseudomonas, and VRE. Urine culture revealed Pseudomonas. Repeated blood culture demonstrated growth of Proteus and Klebsiella ESBL Stool for C. difficile was positive, Antibiotic regimen was optimized as per ID specialist. Leukocytosis initially resolved and then started to rise again. Patient was treated for bacteremia, UTI, pneumonia, C. difficile colitis, G- tube site cellulitis. ID specialist recommended removal of the PICC line when patient more stable. Patient was hydrated . Electrolytes corrected as needed. Nephrotoxins were avoided. Renal parameters were clsoely monitored. Acute kidney injury worsened ; on a day of expiration creatinine up to 6.4. Per yield improvement engineer ,acute kidney injury was multifactorial and nonoliguric. Patient presented on admission with multiply un-stageable decubitus ulcers . Wound care provided as per surgeon recommendation. Serial troponin closely monitored. Initial troponin was negative. On 08/28 troponin 1.336. Patient at that time noted to be in atrial fibrillation with rapid ventricular response and started on Amiodarone and Cardizem drip for rate control. Repeated troponin the same day hiral to 7.518. Spot diuresis provided. Patient remained critically ill: he was hypotensive, in acute renal failure , sepsis , acute TX, chronic respiratory status with ventilator dependency with tracheostomy status, GI bleeding, status post 8 units of packed red blood cell transfusion while in the hospital. Prognosis was grave. On 08/29 CODE BLUE was called . Patient was hypotensive and from bradycardia went to asystole. ACLS protocol initiated. Patient started on Levophed. Hemodynamic status was closely monitored . Pressors titrated to keep mean arterial blood pressure above 65. That day troponin trended up to 19. 587 and then started to trend down. Last troponin at 09/01 - 6.707. On 09/02 another CODE BLUE was called. ACLS protocol initiated. Unfortunately all resuscitative efforts appeared to be futile. Patient remained in PEA , thus resuscitative efforts terminated . Patient was pronounced on 09/02 at 13:56. Cause of : cardiopulmonary arrest. FINAL DIAGNOSES: Status post cardiopulmonary arrest x2 Sepsis with Proteus and Klebsiella ESBL bacteremia Shock (requiring pressors) Pseudomonas, Klebsiella ESBL and Providencia pneumonia Pseudomonas UTI Acute TX Gastrostomy tube infection /G-tube site cellulitis , polymicrobial C. difficile colitis Possible intra-abdominal infection Status post EGD x2 Ulcerative gastritis without active bleeding Status post G-tube revision Chronic ventilator dependent respiratory failure with tracheostomy status Acute kidney injury, multifactorial, nonoliguric GI bleeding Iron deficiency anemia Atrial fibrillation with rapid ventricular response Acute on chronic diastolic congestive heart failure Sinus node disease with asymptomatic bradycardia Hypertensive heart disease Diabetes Severe protein calorie malnutrition Diverticulosis Deep tissue pressure injury , present on admission Encephalopathy I have been assigned to dictate discharge summary for this account. I was not involved in the patient's management. Alicja Steel NP Sep 04, 2019 16:04
--- NOTE | 2019-09-05 12:18 | NUR ---
*-* INSURANCE *-* DISCHARGE SUMMARY HAS BEEN FAXED TO: [facility] CM:RYANNE F: [phone] REF#[id number]
== END 2019-09-03 18:00 | disposition expired | DRG 870 ==
LOC: EDBD 20:18 → EMR 20:59 → EDBEDREQ 21:24 → 2W 23:52 → EDBEDREQ 08-08 05:45 → 2W 08-27 18:20 → ICU 08-28 03:00
PROC: 5A1955Z Respiratory Ventilation, Greater than 96 Consecutive Hours (ICD-10-PCS; principal; 2019-08-07)
PROC: 0DD68ZX Extraction of Stomach, Via Natural or Artificial Opening Endoscopic, Diagnostic (ICD-10-PCS; 2019-08-18)
PROC: 0DH63UZ Insertion of Feeding Device into Stomach, Percutaneous Approach (ICD-10-PCS; 2019-08-22)
PROC: 02HV33Z Insertion of Infusion Device into Superior Vena Cava, Percutaneous Approach (ICD-10-PCS; 2019-08-28)
PROC: B548ZZA Ultrasonography of Superior Vena Cava, Guidance (ICD-10-PCS; 2019-08-28)
DX: A41.59 Other Gram-negative sepsis (principal); R65.21 Severe sepsis with septic shock; E43 Unspecified severe protein-calorie malnutrition; I50.33 Acute on chronic diastolic (congestive) heart failure; J15.1 Pneumonia due to Pseudomonas; J15.0 Pneumonia due to Klebsiella pneumoniae; K94.23 Gastrostomy malfunction; G93.49 Other encephalopathy; I47.1 Supraventricular tachycardia; J96.10 Chronic respiratory failure, unspecified whether with hypoxia or hypercapnia; K57.92 Diverticulitis of intestine, part unspecified, without perforation or abscess without bleeding; I13.0 Hypertensive heart and chronic kidney disease with heart failure and stage 1 through stage 4 chronic kidney disease, or unspecified chronic kidney disease; N17.9 Acute kidney failure, unspecified; A04.72 Enterocolitis due to Clostridium difficile, not specified as recurrent; N39.0 Urinary tract infection, site not specified; K94.22 Gastrostomy infection; L03.311 Cellulitis of abdominal wall; K56.7 Ileus, unspecified; D50.9 Iron deficiency anemia, unspecified; Z93.0 Tracheostomy status; L89.150 Pressure ulcer of sacral region, unstageable; E87.6 Hypokalemia; Z68.34 Body mass index [BMI] 34.0-34.9, adult; N18.3 Chronic kidney disease, stage 3 (moderate); E86.1 Hypovolemia; E86.0 Dehydration; R13.10 Dysphagia, unspecified; Z86.73 Personal history of transient ischemic attack (TIA), and cerebral infarction without residual deficits; K29.60 Other gastritis without bleeding; I48.91 Unspecified atrial fibrillation; K94.29 Other complications of gastrostomy; Z20.828 Contact with and (suspected) exposure to other viral communicable diseases
CPT/HCPCS: 36415; 36569; 36600; 71045; 74018; 74177; 76937; 80048; 80053; 80202; 81003; 82248; 82270; 82550; 82570; 82607; 82746; 82803; 82962; 83540; 83550; 83605; 83690; 83735; 83880; 84100; 84300; 84484; 84550; 85007; 85025; 85610; 85651; 85730; 86140; 86850; 86900; 86901; 86920; 87040; 87070; 87081; 87086; 87181; 87205; 87324; 92950; 93005; 93306; 93970; 94002; 94003; 94150; 94664; 96360; 99285; J0171; J0282; J2370; J2765; J7030; J8499